=== PATIENT | male | born 1945 | race Caucasian/White ===

== ENCOUNTER → 2018-04-24 08:59 | Outpatient (BNVA) | payer MEDICARE, SELFPAY | PROVIDERS: Visit Provider Surgery | DX: L72.3 Sebaceous cyst (principal); I10 Essential (primary) hypertension | CPT/HCPCS: 99212; 99213 ==

== ENCOUNTER 2018-04-30 10:06 | Outpatient (REF) | payer MEDICARE, SELFPAY ==
[2018-05-01 09:18] LABS: Hepatitis C Ab w Rflx HCV PCR Negative (NEGAT)
[2018-05-01 09:54] LABS: PSA, Screening 0.9 ng/ml (0-6.5)
== END 2018-04-30 10:26 ==
LOC: NCHCN 10:06
PROVIDERS: PCP Internal Medicine; Visit Provider Internal Medicine
DX: R35.0 Frequency of micturition (principal); Z11.59 Encounter for screening for other viral diseases; Z12.5 Encounter for screening for malignant neoplasm of prostate
CPT/HCPCS: 84153; 86803

== ENCOUNTER 2019-12-29 09:44 | Outpatient (REF) | payer MEDICARE, SELFPAY ==
[2019-12-29 21:52] LABS: HCT 41.5 % (40.0-50.0); HGB 13.8 g/dL (13.5-17.5); Mean Corp. HGB Concentration 33.3 g/dL (32.0-36.0); Mean Corpuscular Hemoglobin 31.6 pg (27.0-33.0); Mean Platelet Volume 10.1 fL (8.0-11.0); Platelet Count 310 x1000/uL (130-400); RBC 4.37 m/cumm (4.50-6.00); RBC Distribution Width 13.6 % (11.8-14.1); White Blood Cell Count 5.13 k/cumm (4.4-10.8)
[2019-12-29 22:22] LABS: ALT 24 U/L (16-63); AST 20 U/L (15-37); Albumin 3.9 g/dL (3.4-5.0); Alkaline Phosphatase 72 U/L (46-116); Anion Gap 8.3 mmol/L (3-11); BUN 26 mg/dL (7-18); Bilirubin, Total 0.5 mg/dL (0.2-1.0); CO2 27.7 mmol/L (21.0-32.0); CREATININE 1.18 mg/dL (0.70-1.30); Calcium 8.9 mg/dL (8.5-10.1); Chloride 103 mmol/L (98-107); Glucose 98 mg/dL (74-106); Potassium 4.7 mmol/L (3.5-5.1); Sodium 139 mmol/L (136-145); TSH 1.08 uIU/mL (0.36-3.74)
[2019-12-31 13:00] LABS: CEA 2.4 ng/mL (See Note); PSA, Screening 0.8 ng/mL (0.0-6.5)
== END 2019-12-29 10:04 ==
LOC: NCHCN 09:44
PROVIDERS: PCP Internal Medicine
DX: R63.4 Abnormal weight loss (principal); R68.81 Early satiety; Z12.5 Encounter for screening for malignant neoplasm of prostate; N40.0 Benign prostatic hyperplasia without lower urinary tract symptoms; Z85.038 Personal history of other malignant neoplasm of large intestine
CPT/HCPCS: 80053; 84153; 85027; 82378; 84443

== ENCOUNTER 2020-11-21 14:45 | Outpatient (REF) | payer MEDICARE, SELFPAY ==
[2020-11-21 14:13] LABS: HCT 44.1 % (40.0-50.0); HGB 15.3 g/dL (13.5-17.5); MCH 32.4 pg (27.0-33.0); MCHC 34.7 % (32.0-36.0); MCV 93.4 fL (80-95); MPV 10.1 fL (8.0-11.0); Platelet Count 322 10^3/uL (130-400); RBC 4.72 10^6/uL (4.36-5.78); RDW 13.3 % (11.8-14.1); WBC 4.81 10^3/uL (4.4-10.8)
[2020-11-21 14:41] LABS: ALT 25 U/L (16-63); AST 22 U/L (15-37); Albumin 4.1 g/dL (3.4-5.0); Alkaline Phosphatase 80 U/L (46-116); Anion Gap 10.9 mmol/L (3-11); BUN 19 mg/dL (7-18); Bilirubin, Total 0.9 mg/dL (0.2-1.0); CO2 26.1 mmol/L (21.0-32.0); CREATININE 1.2 mg/dL (0.70-1.30); Calcium 9.3 mg/dL (8.5-10.1); Chloride 105 mmol/L (98-107); Estimated GFR 59.02 (mL/min/1.73m2); Glucose 143 mg/dL (74-106); Potassium 4.7 mmol/L (3.5-5.1); Sodium 142 mmol/L (136-145); Total Protein 7.5 g/dL (6.4-8.2); Vitamin B12 245 pg/mL (193-986)
[2020-11-21 14:59] LABS: NT-proBNP 197 pg/mL (<300)
[2020-11-21 22:42] LABS: PSA, Screening 1.1 ng/mL (0.0-6.5)
== END 2020-11-21 14:46 | disposition home or self-care (01) ==
LOC: NCHCN 14:45
PROVIDERS: PCP Internal Medicine; Visit Provider Internal Medicine
DX: R06.09 Other forms of dyspnea (principal); R41.3 Other amnesia; R11.0 Nausea; R19.4 Change in bowel habit; R63.0 Anorexia; K59.09 Other constipation; F51.04 Psychophysiologic insomnia; N40.1 Benign prostatic hyperplasia with lower urinary tract symptoms; Z12.5 Encounter for screening for malignant neoplasm of prostate
CPT/HCPCS: 80053; 84153; 85027; 82607; 83880; 84443

== ENCOUNTER 2020-11-24 18:38 | Outpatient (REF) | payer MEDICARE, SELFPAY ==
[2020-11-28 15:41] LABS: Helicobacter pylori Ag, Feces Negative (Negative)
== END 2020-11-24 18:39 | disposition home or self-care (01) ==
LOC: NCHCN 18:38
PROVIDERS: PCP Internal Medicine; Visit Provider Internal Medicine
DX: R19.4 Change in bowel habit (principal); R63.0 Anorexia; R63.4 Abnormal weight loss; R11.0 Nausea
CPT/HCPCS: 87338; 82272

== ENCOUNTER 2020-11-30 02:05 | Outpatient (CLI) | payer MEDICARE, SELFPAY ==
--- NOTE | 2020-11-30 | DI.CT_ITS ---
Exam(s) CT CHEST/ABD/PEL W EXAM: CT CHEST/ABD/PEL W CLINICAL HISTORY: EXERTIONAL DYSPNEA,R06.09,NAUSEA,R11.0,UNINTENTIONAL WT LOSS,R63.4 TECHNIQUE: Imaging Protocol: Axial computed tomography images with coronal and sagittal reformatted images were created and reviewed CONTRAST MATERIAL: Intravenous: Omnipaque 350 Contrast volume:100 mL Oral: Yes COMPARISON: No exams were available for comparison FINDINGS: CHEST: Tracheobronchial tree: Patent where visualized. Pulmonary parenchyma: No consolidation or dominant measurable mass. No architectural distortion. Calc ified granulomas are present. There is a 2 mm nodule associated with the left major fissure likely r eflecting an fissural lymph node. Visualized thyroid gland: Unremarkable. Mediastinum and Steph: No dominant adenopathy or fluid collection. Pleura: No effusion or pneumothorax. Heart: The heart is not dilated. No coronary artery calcifications are seen. No pericardial effusion. Aorta: Thoracic aorta non-dilated. Atherosclerosis. Lymph nodes: Within normal limits. Soft tissues: Bilateral gynecomastia. Bones:No aggressive osseous lesions are identified. ABDOMEN: Liver: Normal density. No measurable mass. Portal, Superior Mesenteric, and Splenic Veins: Unremarkable. Gallbladder and Biliary Tract: Cholelithiasis. No biliary ductal dilatation. Pancreas: Normal density, no abnormal calcifications or inflammatory process. Spleen: Normal. Adrenals: No masses seen. Kidneys: Normal size, contour and axis. No radiodense stones or obstructive uropathy. There are bilat eral simple renal cysts. The largest is on the superior pole of the right kidney. It measures 3.6 c m. There is scarring of the lateral aspect of the left kidney with a cortical calcification present. No solid renal mass. Abdominal Aorta: Abdominal portion non-dilated. Atherosclerosis. Bowel: No obstruction or bowel wall thickening. Appendix is unremarkable. Peritoneal Cavity: No ascites, collection or mesenteric inflammatory response. No free air. Lymph Nodes: Within normal limits. Bones: Degenerative changes are seen in the spine. No aggressive osseous lesions are seen. Soft Tissues: There is a left inguinal hernia containing unremarkable loops of small and large bowel. No evidence of strangulation or obstruction. PELVIS: Bladder: There is incomplete distension of the urinary bladder. No gross abnormality is identified. Reproductive Organs: There is an enlarged prostate gland with impingement upon the base of the urinar y bladder. Lymph Nodes: Within normal limits. Bones: Within normal limits. IMPRESSION: 1. Cholelithiasis. No biliary ductal dilatation. 2. Bilateral renal cysts. Left renal scarring. 3. Left inguinal hernia containing small and large bowel loops. No evidence of strangulation or obst ruction. 4. Enlarged prostate gland. 5. No evidence of a thoracic mass or adenopathy. RADIATION DOSE DELIVERED: 1,465.76mGy.cm Total DLP DATA REPOSITORY: All CT scans at this facility are submitted to the National Radiology Data Registry (NRDR) Dose Index Registry (DIR) with the [employer] (A[employer]). RADIATION OPTIMIZATION: All CT scans at this facility use at least one of these dose optimization te chniques: automated exposure control; mA and/or kV adjustment per patient size (includes targeted exa ms where dose is matched to clinical indication); or iterative reconstruction.
[2020-11-30] MEDS: Breeza Beverage 473 ML BTL PO ×2 (11:14→11:15)
[2020-11-30] MEDS: Omnipaque 350 MG/ML 100 ML BTL IJ (13:05)
[2020-11-30] MEDS: Normal Saline - Diluent 50 ML VIAL IV (13:05)
== END 2020-11-30 02:25 ==
PROVIDERS: PCP Internal Medicine; Visit Provider Internal Medicine
DX: R06.09 Other forms of dyspnea (principal); R11.0 Nausea; R63.4 Abnormal weight loss; K80.20 Calculus of gallbladder without cholecystitis without obstruction; N28.1 Cyst of kidney, acquired; K40.90 Unilateral inguinal hernia, without obstruction or gangrene, not specified as recurrent; N40.0 Benign prostatic hyperplasia without lower urinary tract symptoms
CPT/HCPCS: 74177; 71260; J3490

== ENCOUNTER 2022-05-20 12:05 | Outpatient (REF) | payer MEDICARE, SELFPAY ==
[2022-05-20 14:52] LABS: Abs Immature Grans 0.01 10^3/uL (0.0-0.06); Absolute Basophil Count 0.04 10^3/uL (0.0-0.2); Absolute Eosinophil Count 0.09 10^3/uL (0.0-0.7); Absolute Lymphocyte Count 0.95 10^3/uL (1.2-3.4); Absolute Monocyte Count 0.41 10^3/uL (0.1-0.8); Absolute Neutrophil Count 3.19 10^3/uL (1.2-6.7); Basophils % 0.9; Eosinophils % 1.9; HCT 41.8 % (40.0-50.0); HGB 14.4 g/dL (13.5-17.5); Immature Grans % 0.2; Lymphocytes % 20.3; MCH 31.8 pg (27.0-33.0); MCHC 34.4 % (32.0-36.0); MCV 92 fL (80-95); MPV 10.6 fL (8.0-11.0); Monocytes % 8.7; Platelet Count 293 10^3/uL (130-400); RBC 4.53 10^6/uL (4.36-5.78); RDW-SD 44.2 fL; WBC 4.69 10^3/uL (4.4-10.8)
[2022-05-20 14:58] LABS: ESR 17 mm/hr (0-20)
[2022-05-20 15:31] LABS: ALT 17 U/L (16-63); AST 21 U/L (15-37); Alkaline Phosphatase 77 U/L (46-116); Anion Gap 7.8 mmol/L (3-11); BUN 22 mg/dL (7-18); Bilirubin, Total 0.5 mg/dL (0.2-1.0); CO2 28.2 mmol/L (21.0-32.0); CREATININE 1.3 mg/dL (0.70-1.30); Calcium 9.4 mg/dL (8.5-10.1); Calculated LDL 105 mg/dL (<100); Chloride 103 mmol/L (98-107); Cholesterol 187 mg/dL (<200); Estimated GFR 56.93 (mL/min/1.73m2); Glucose 78 mg/dL (74-106); HDL Cholesterol 71 mg/dL (40-60); Magnesium 2.1 mg/dL (1.8-2.4); Potassium 4.5 mmol/L (3.5-5.1); Sodium 139 mmol/L (136-145); TSH (W/Ref FT4) 1.07 uIU/mL (0.36-3.74); Total Protein 7.3 g/dL (6.4-8.2); Triglyceride 59 mg/dL (<150); Vitamin B12 334 pg/mL (193-986)
[2022-05-20 22:02] LABS: PSA, Screening 0.9 ng/mL (<=6.5)
[2022-05-21 14:24] LABS: ANA Interpretation Negative (Negative)
== END 2022-05-20 12:06 | disposition home or self-care (01) ==
LOC: NCHCN 12:05
PROVIDERS: PCP Internal Medicine; Visit Provider Internal Medicine
DX: I10 Essential (primary) hypertension (principal); N40.1 Benign prostatic hyperplasia with lower urinary tract symptoms; N52.9 Male erectile dysfunction, unspecified; F51.04 Psychophysiologic insomnia; K59.09 Other constipation; Z12.5 Encounter for screening for malignant neoplasm of prostate; R41.9 Unspecified symptoms and signs involving cognitive functions and awareness
CPT/HCPCS: 80053; 80061; 84153; 85652; 82607; 83735; 84443; 85025; 86038

== ENCOUNTER 2022-06-17 13:08 | Outpatient (CLI) | payer MEDICARE, SELFPAY ==
--- NOTE | 2022-06-17 | DI.RAD_ITS ---
Exam(s) XR LUMBAR SPINE COMPLETE EXAM: XR LUMBAR SPINE COMPLETE CLINICAL HISTORY: BACK PAIN LUMBAR, M54.5, RT BACK PAIN, M54.89, BUTTOCK PAIN, R52. TECHNIQUE: 2D digital imaging was performed. Five views. COMPARISON: No exams were available for comparison FINDINGS: No compression fractures. Severe narrowing of the L1-2 disc space with prominent osteophytes that ar e left-sided. Mild narrowing of the L2-3 disc space on the right. L3-4 disc space is maintained. T here is mild narrowing of the L4-5 disc space. There prominent facet joint degenerative changes caus ing mild L4-5 spondylolisthesis. The L5-S1 disc space is maintained. There are facet degenerative c hanges. There is a mild degenerative scoliosis. IMPRESSION: Multilevel degenerative changes, greatest at L1-2. DATA REPOSITORY: RADIATION DOSE DELIVERED:
--- NOTE | 2022-06-17 | DI.RAD_ITS ---
Exam(s) XR HIP RT COMPLETE AP PELVIS EXAM: XR HIP RT COMPLETE AP PELVIS INDICATION: LUMBAR BACK PAIN, M54.5, RT BACK PAIN, M54.89, BUTTOCK PAIN, R52. COMPARISON: No exams were available for comparison TECHNIQUE: 2D digital imaging was performed. Two views. FINDINGS: If joint spaces are maintained. There is mild bilateral acetabular spurring. There is mild spurring at the margins of the femoral heads. The sacroiliac joints are unremarkable. IMPRESSION: Mild degenerative changes. DATA REPOSITORY: RADIATION DOSE DELIVERED:
== END 2022-06-17 13:28 ==
PROVIDERS: PCP Internal Medicine; Visit Provider Internal Medicine
DX: M54.59 Other low back pain (principal); M53.3 Sacrococcygeal disorders, not elsewhere classified; M25.551 Pain in right hip; M51.36 Other intervertebral disc degeneration, lumbar region; M43.16 Spondylolisthesis, lumbar region; M47.816 Spondylosis without myelopathy or radiculopathy, lumbar region; M16.11 Unilateral primary osteoarthritis, right hip
CPT/HCPCS: 72110; 73502

== ENCOUNTER → 2022-11-06 09:03 | Outpatient (BNVA) | payer MEDICARE, SELFPAY | PROVIDERS: PCP Internal Medicine; Referring Provider Internal Medicine; Visit Provider Surgery | DX: K59.00 Constipation, unspecified (principal); R19.8 Other specified symptoms and signs involving the digestive system and abdomen | CPT/HCPCS: 99203 ==

== ENCOUNTER → 2022-11-13 08:06 | Outpatient (BNVA) | payer MEDICARE, SELFPAY | PROVIDERS: PCP Internal Medicine; Referring Provider Internal Medicine; Visit Provider Nurse Practitioner Adult Health | DX: R41.89 Other symptoms and signs involving cognitive functions and awareness (principal); I10 Essential (primary) hypertension; F12.90 Cannabis use, unspecified, uncomplicated | CPT/HCPCS: 99204; 99215 ==

== ENCOUNTER 2022-12-12 00:53 | Outpatient (CLI) | payer MEDICARE, SELFPAY ==
--- NOTE | 2022-12-12 08:30 | DI.MRI_ITS ---
Exam(s) MR BRAIN WO EXAM: MR BRAIN WO CLINICAL HISTORY: memory changes, word finding difficulties R41.89 COGNITIVESYMPTOMS TECHNIQUE: Multiplanar multisequence MRI of the brain was performed. COMPARISON: CT HEAD WITHOUT STROKE PROTOCOL from 06/02/2017 FINDINGS: CEREBRAL PARENCHYMA: There is no evidence of intracranial hemorrhage, mass effect, or shift of midline structures. There are no extra-axial fluid collections. Ventricles are not enlarged or shifted. Amount of involutiona l change is symmetrical and consistent with the patient's age. There is no significant focal signal abnormality in the cerebellar hemispheres nor within the dashawn, m idbrain, and thalami. There is very minimal signal abnormality in the periventricular white matter. There is no significant focal signal abnormality evident on diffusion imaging to suggest acute ischem ic event. SWI reveals no evidence of microhemorrhages. PITUITARY GLAND: No mass nor parasellar abnormality. No obvious abnormality in the cavernous sinuses. FLOW VOIDS: The expected flow void are noted. No evidence of obvious aneurysm nor obvious vascular ma lformation. PARANASAL SINUSES: The visualized paranasal sinuses appear unremarkable. No obvious finding ORBITS: No obvious findings. IMPRESSION: No significant acute intracranial findings on this noninfused MRI scan of the brain. There is symmetrical involutional change which is consistent with this patient's advanced age. DATA REPOSITORY:
== END 2022-12-12 01:13 ==
PROVIDERS: PCP Internal Medicine; Visit Provider Nurse Practitioner Adult Health
DX: R41.89 Other symptoms and signs involving cognitive functions and awareness (principal)
CPT/HCPCS: 70551

== ENCOUNTER 2022-12-19 08:13 | Day surgery (SDC) | payer MEDICARE, SELFPAY ==
--- NOTE | 2022-12-18 20:34 | W.PREOPHP ---
Assessment and Plan Assessment and plan (1) Chronic constipation: Status: Acute Assessment and plan: We reviewed the risks and the benefits of colonoscopy today. He understands and wishes to proceed. History of Present Illness History of Present Illness Chief Complaint: change in bowel habits Narrative: He is 77 years old, and is got a past medical history that is most significant for a polyp with perhaps cancer in situ.? He underwent polypectomy for that, and subsequent sigmoidoscopy and colonoscopies were all negative.? Over the past several years, he has developed some change in the character of his bowel habits.? Initially he reported some constipation.? He said this was present for several years, and was treated with MiraLAX, Senokot, and Dulcolax.? Medications have been adjusted over the years.? Does believe that those medications helped him.? More recently, over the past 3 to 4 months, he has been experienced increasing bowel movements.? He tells me he awakens from sleep feeling pretty well, but during the morning hours, he develops a rapid and intense sensation of tenesmus.? Often times, this is only associated with passage of gas.? Other times, he has large forceful liquid bowel movements.? He denies melena or hematochezia.? He generally has immediate relief of the discomfort, but similar episodes will happen intermittently throughout the course of the day.? He denies any nausea or vomiting.? He tells me most recently he has been holding his MiraLAX.? He does think that this is helped a little bit. Since his last visit to the office he has been started on some loratadine for congestion. Otherwise, there have been no significant interval changes. PFSH All Active Problems Chronic constipation (Acute) Constipation (Acute) Screening for colon cancer (Acute) Change in bowel function (Acute) Cognitive changes (Acute) Medical History Adenomatous colon polyp Allergic rhinitis BPH Cholelithiasis Pt. denies this Erectile dysfunction Genital herpes in men Pt. states not genital but oral Hearing loss Herpes simplex History of colon cancer rectal 2004 Hypertension Insomnia Loose stools Lumbar back pain Migraine aura without headache Mild cognitive impairment, so stated Night sweats Osteoarthritis Patent foramen ovale Pericardial effusion Right rotator cuff tear Sebaceous cyst Urinary frequency Surgical History Colonoscopy - MAC (06/14/09) Colonoscopy - MAC (02/03/17) Excision, Pilonidal Cyst Repair of inguinal hernia CHILDHOOD - RIGHT S/P pericardiocentesis Per pt. states it was 4-5 years Sigmoidoscopy Family History Mother Arthritis Father No problems noted. Brother Obesity Brother No problems noted. Social History Smoking/Tobacco Use Status: Former Tobacco Use Quit Date: 06/30/79 Smoking risk assessment performed?: Yes Alcohol Intake: current Alcohol Intake frequency: 0-2 drinks per day Alcohol type: beer Substance use type: does not use Details: Per pt. states CBD as a sleep aid Household members: significant other Current gender identity: male Do you feel safe at home: Yes Do you feel safe in your relationship?: Yes Additional Social history: unable to asses privately Meds Allergies and Home Medications Allergies Allergy/AdvReac Type Severity Reaction Status Date / Time Penicillins Allergy Intermediate Skin Rash Verified 12/19/22 08:39 Home Medications Medication Instructions Recorded Confirmed Type ibuprofen 100 mg chewable tablet 200 mg PO Q4H PRN 12/03/12 12/19/22 History (Advil) valacyclovir 1 gram tablet 2,000 mg PO BID PRN 12/03/12 12/19/22 History (Valtrex) sennosides 8.6 mg-docusate sodium 1 ea PO DAILY 12/08/12 12/19/22 History 50 mg tablet (Senna-S) THC PO 04/24/18 11/13/22 History acetaminophen 500 mg tablet 1,000 mg PO TID PRN PRN 05/22/22 12/19/22 History (Tylenol Extra Strength) tramadol 50 mg tablet 50 mg PO HS PRN 05/22/22 12/19/22 History atorvastatin 20 mg tablet 20 mg PO DAILY 07/29/22 12/19/22 History polyethylene glycol 3350 4 gram 4 g PO DAILY 07/29/22 12/19/22 History oral powder packet docusate sodium 100 mg capsule 100 mg PO DAILY 11/06/22 12/19/22 History (Colace) tamsulosin 0.4 mg capsule 0.8 mg PO QHS 11/13/22 12/19/22 History Exam Const General: cooperative, healthy appearing and comfortable Orientation: awake and oriented x3 Eyes General: appearance normal, both eyes and all related structures Conjunctivae: conjunctivae normal Sclera: sclerae normal Resp Effort & Inspection: normal respiratory effort and able to speak in complete sentences Auscultation: clear to auscultation bilaterally Cardio Jugular venous pressure: no JVD Rate: regular rate Rhythm: regular rhythm GI Inspection: non-distended Palpation: soft, no guarding, no hernias and nontender Auscultation: normal bowel sounds Skin General skin exam: normal turgor Neuro General: patient alert, patient awake and patient oriented x3 Cognition: normal cognition Extrem Right lower extremity: no edema Left lower extremity: no edema
--- NOTE | 2022-12-18 20:36 | W.PM.DSUDISC ---
Date of service: 12/19/22 Time of Service: 10:35 Discharge Plan Disposition Patient Disposition: Home Condition: Good Discharge Details Reason For Visit: Colonoscopy Attending Provider: Conrado Ron Primary Care Provider: Washington Puckett Home Meds and New Rx's Prescriptions: Continued THC PO docusate sodium [Colace] 100 mg capsule 100 mg PO DAILY valacyclovir [Valtrex] 1,000 MG tablet 2,000 mg PO BID PRN ibuprofen [Advil] 100 MG tablet,chewable 200 mg PO Q4H PRN sennosides-docusate sodium [Senna-S] 1 EACH tablet 1 ea PO DAILY Patient Comments: not taking anymore per pt. acetaminophen [Tylenol Extra Strength] 500 mg tablet 1,000 mg PO TID PRN PRN tramadol 50 mg tablet 50 mg PO HS PRN polyethylene glycol 3350 4 gram powder in packet 4 g PO DAILY atorvastatin 20 mg tablet 20 mg PO DAILY tamsulosin 0.4 mg capsule 0.8 mg PO QHS Discontinued polyethylene glycol 3350 17 gram/dose powder 238 g PO ONCE Qty: 238 0RF Rx Instructions: take per colonoscopy instructions bisacodyl [Dulcolax (bisacodyl)] 5 mg tablet,delayed release (DR/EC) 5 mg PO ONCE Qty: 4 0RF Rx Instructions: take per colonoscopy instructions Discharge Instructions Additional Instructions: Evening, we were able to do your colonoscopy today without any problems. Your digital rectal exam feels normal to me. I do not appreciate any worrisome anal stenosis. The quality of your preparation was excellent. There was no retained stool. Your colon is slightly dilated compared to most people, which could suggest some chronic motility disorders. But there is no areas of any blockage at any point. Incidentally, I did find 2 small polyps. I removed these completely. I also perform multiple biopsies along the length of the colon to assess for other problems that might not be visible to the naked eye. I will be in touch when I have the results of the biopsies. 1. If tolerated, consume a soft, low fiber diet for 1-2 days. 2[address] Do not drive, drink alcohol, operate machinery, make critical decisions, or do activities that require coordination or balance for 24 hours. 3. Because air was put into your colon during the procedure, expelling air from your rectum (passing gas or farting) is normal. 4. You may not have a bowel movement for 1-3 days because of the colonoscopy prep. This is normal. 5. Go directly to the emergency room if you notice any of the following: Develop chills (warm to touch), or if you have a thermometer and your temperature is above 101 Difficulty breathing or difficultly swallowing Persistent vomiting Severe abdominal pain, other than gas cramps Severe chest pain Black, tarry stools Any bleeding ? exceeding one tablespoon 6. Call your physician if the site where your intravenous was started becomes red, swollen, painful, and warm to touch. 7. Your physician has reviewed your pre-procedure medications. Please continue to take those medications as previously ordered. You will be given specific information/education regarding any changes to your medications before leaving. Activity:: Activity as Tolerated Diet:: As Tolerated Discharge Orders Discharge Orders: Discharge Order (Routine); Ordered 12/18/22 Ordered By: Conrado Ron DS: Diagnosis Discharge Diagnosis (1) Chronic constipation: Status: Acute
--- NOTE | 2022-12-18 20:37 | W.COLOREPORT ---
Date of service: 12/19/22 Time of Service: 10:39 Colonoscopy Report Date of procedure: 12/19/22 Pre-op diagnosis general: Change in bowel habits Post-op diagnosis procedure note: other (Colon polyps) Procedure: Colonoscopy Surgeon: Conrado Ron Anesthesia Type: General:No Airway Estimated blood loss (mL): 10 Pathology: other (Colon polyp at 60 cm, colon polyp at 35 cm) Complications: None Disposition: same day Indications: Alvin is a 77 year old man who has been experiencing waxing and waning constipation and diarhea. He has a past history significant for an adenomatous polyp with carcinoma in situ. Prep: Miralax/Dulcolax Procedure Start Time: 09:58 Procedure End Time: 10:30 Retraction Time: 18 Findings: Colon polyps Procedure Description: After the induction of monitored anesthetic care, and with the patient in left lateral decubitus position, I began by performing an external anorectal exam.? Perineum and skin were normal, as was the anal verge.? There was no evidence of external hemorrhoids.? Next, I performed a digital rectal exam.? Anal sphincter felt normal. There were no masses. I did know appreciate any abnormal findings.? Next, I advanced a colonoscope into the rectal vault.? I performed retroflexion.? There are grade 1 internal hemorrhoids.? Using insufflation, I then advanced the colonoscope beyond the rectal folds and into the sigmoid colon before advancing towards the cecum.? The quality of the prep was asked.? The scope was noted to be in the cecum by identification of the ileocecal valve and appendiceal orifice.? I then began withdrawing the colonoscope using repeated irrigation as necessary for full evaluation of the colonic mucosa. Around 60 cm from the anal verge I identified a 0.75 cm polyp. ?It appeared sessile in character. ?I was able to remove this with a cold forceps. ?I examined the site, and there was minimal bleeding. ?Once this was completed, I continued to withdraw the scope and examine the remainder of the colonic mucosa.? Similarly, there was another polyp at 35 cm. This was 0.25 cm and sessile. This was also removed with cold forcep polypectomy. Once the scope was withdrawn to the level of the rectum, great care was taken to examine portions of the rectal folds.? Given his symptoms, I did also perform random biopsies of the colon using cold forceps at multiple points in the ascending, transverse, descending and sigmoid colons. Finally, the scope was withdrawn and the patient was brought to the same-day surgery recovery unit as the anesthetic wore off. ?The findings and instructions were shared with the patient prior to discharge.
[2022-12-19 08:28] VITALS: BP 145/78; PULSE 73; RESP 17; TEMP 35.5; O2SAT 99
[2022-12-19] MEDS: Lactated Ringers 1,000 ML 80 ML IV (08:54)
--- NOTE | 2022-12-19 09:12 | W.ANESPRE ---
General Info Date of Service Date Performed: 12/19/22 Height: 5 ft 9.5 in Weight: 79.1 kg Body Mass Index (BMI): 25.4 Surgical Procedure: Operation Date: 12/19/22 09:35 Proposed Procedure Side Surgeon genaro Ron MD Meds Allergies and Home Medications Allergies Allergy/AdvReac Type Severity Reaction Status Date / Time Penicillins Allergy Intermediate Skin Rash Verified 12/19/22 08:39 Home Medication Medication Instructions Recorded ibuprofen 100 mg chewable tablet 200 mg PO Q4H PRN 12/03/12 (Advil) valacyclovir 1 gram tablet 2,000 mg PO BID PRN 12/03/12 (Valtrex) sennosides 8.6 mg-docusate sodium 1 ea PO DAILY 12/08/12 50 mg tablet (Senna-S) THC PO 04/24/18 acetaminophen 500 mg tablet 1,000 mg PO TID PRN PRN 05/22/22 (Tylenol Extra Strength) tramadol 50 mg tablet 50 mg PO HS PRN 05/22/22 atorvastatin 20 mg tablet 20 mg PO DAILY 07/29/22 polyethylene glycol 3350 4 gram 4 g PO DAILY 07/29/22 oral powder packet docusate sodium 100 mg capsule 100 mg PO DAILY 11/06/22 (Colace) tamsulosin 0.4 mg capsule 0.8 mg PO QHS 11/13/22 Current Visit Medications: Current Medications Generic Name Dose Route Start Last Admin Trade Name Freq PRN Reason Stop Dose Admin Hyoscyamine Sulfate 0.125 mg 12/18/22 20:39 Hyoscyamine 0.125 Mg Sl/Oral/Chew SL 01/17/23 20:38 DIRECTED PRN Ringer's Solution 1,000 mls @ 80 mls/hr 12/19/22 06:00 12/19/22 08:54 IV 12/27/22 23:59 80 mls/hr INFUSION ANGELA Administration IV Miscellaneous Supplies 1 each 12/19/22 06:00 Iv Access IV 12/27/22 23:59 DIRECTED ANGELA Ondansetron HCl 4 mg 12/18/22 20:39 Ondansetron 4 Mg/2 Ml Vial IVP 01/17/23 20:38 Q4H PRN PRN Nausea / Vomiting Sodium Chloride 0 ml 12/19/22 06:00 Normal Saline Flush 10 Ml Syr IV 12/27/22 23:59 PRN PRN Sodium Chloride 0 ml 12/19/22 06:00 Normal Saline 10 Ml Vial IJ 12/27/22 23:59 DIRECTED PRN Sterile Water 0 ml 12/19/22 06:00 Water,Injection,Sterile 10 Ml Vial IJ 12/27/22 23:59 DIRECTED PRN PFSH Active Problems Active Problems: Problem Status Onset Code Chronic constipation K59.09 Constipation K59.00 Screening for colon cancer Z12.11 Change in bowel function R19.8 Cognitive changes R41.89 Medical History Medical History Adenomatous colon polyp Allergic rhinitis BPH Cholelithiasis Pt. denies this Erectile dysfunction Genital herpes in men Pt. states not genital but oral Hearing loss Herpes simplex History of colon cancer rectal 2004 Hypertension Insomnia Loose stools Lumbar back pain Migraine aura without headache Mild cognitive impairment, so stated Night sweats Osteoarthritis Patent foramen ovale Pericardial effusion Right rotator cuff tear Sebaceous cyst Urinary frequency Surgical History Surgical History Colonoscopy - MAC (06/14/09) Colonoscopy - MAC (02/03/17) Excision, Pilonidal Cyst Repair of inguinal hernia CHILDHOOD - RIGHT S/P pericardiocentesis Per pt. states it was 4-5 years Sigmoidoscopy Tobacco Smoking/Tobacco Use Status: Former Tobacco Use Alcohol Alcohol Intake: current Alcohol intake frequency: 0-2 drinks per day Alcohol type: beer Substance Use Substance use type: does not use Details: Per pt. states CBD as a sleep aid Vital Signs and Lab Results Vital Signs Most Recent Vital Signs in EMR: Most Recent Vital Signs Temp Pulse Resp BP Pulse Ox 35.5 C L 73 17 145/78 H 99 12/19/22 08:28 12/19/22 08:28 12/19/22 08:28 12/19/22 08:28 12/19/22 08:28 Lab Results Blood Type / Crossmatch: No Data to Display Complete Blood Count: No Data to Display Complete Metabolic Panel: No Data to Display Liver Function Panel: No Data to Display Coagulation Panel: No Data to Display Cardiac Panel: No Data to Display Arterial Blood Gas: No Data to Display Venous Blood Gas: No Data to Display Pancreas Panel: No Data to Display Thyroid Panel: No Data to Display Infectious Disease: No Data to Display Blood Cultures: No Data to Display Toxicology Panel: No Data to Display Anesthesia Assessment and Plan Anesthesia History Personal History: No History of Anesthesia Complications Family History: No Family History of Anesthesia Complications Exercise Tolerance Exercise Tolerance: Metabolic Equivalents>4 Pertinent Negatives Pertinent Negatives: No Symptoms of GERD, No Major Cardiovascular Symptoms or Complaints and No Major Pulmonary Symptoms or Complaints Cardiac & Pulmonary Exam Cardiac Exam: Normal S1/S2 Heart Sounds (Occ ectopic beat) Pulmonary Exam: Clear Bilateral Breath Sounds Implantable Cardiac Device Does patient have a Pacemaker or an ICD?: No Airway Exam Known Difficult Airway: No Mallampati Class: 2 Mouth Opening: Normal (> 3cm) Thyromental Distance: Greater than 3 cm Neck Range of Motion: Full ROM Neck Circumference: Normal Teeth Condition: Normal Dentition ASA Classification ASA Score: ASA 2 Emergency Case?: No NPO Status NPO Status: NPO Clears >2 hours, Solids >8 hours Anesthesia Plan Resuscitation Status: Full Code Anesthesia Technique: General Anesthesia Airway Planned: Natural Airway Monitors Used: Standard Monitors Preoperative Comments:: Hx of rectal CA 2004. colo in 2017 normal.
[2022-12-19 09:57] VITALS: BMI 25.4
--- NOTE | 2022-12-19 10:20 | BOWEL_PTH ---
PATIENT: Alvin Cat LOC: [facility] U#:[id number] AGE/SX: 77/M ROOM: RE12/19/[address]: Conrado Ron MD : 1945 BED: DIS: 12/19/2022 SPEC #: [id number] RECD: 12/19/22 12:48 STATUS: MIAH REQ #: [id number] MARY GRACE: 12/19/22 10:[address]: Conrado Ron DEPT: Surgical Specimen RECD BY: Carlyn Goode ENTERED: 12/19/22 12:48 SP TYPE: Bowel OTHR DR: Washington Puckett Tissues: 1 - BIOPSY BOWEL 2 - BIOPSY BOWEL 3 - BIOPSY BOWEL Procedures: GROSS AND MICRO LEVEL 4 Comments: [id number]
[2022-12-19 10:37] VITALS: BP 133/74; PULSE 55; RESP 16; TEMP 36.2; O2SAT 97
[2022-12-19 11:15] VITALS: BP 139/81; PULSE 51; RESP 16; TEMP 36.3; O2SAT 100
--- NOTE | 2022-12-19 12:31 | W.ANESPOSTOP ---
Postoperative Evaluation Date, Time and Location Date Performed: 12/19/22 Time Performed: 11:20 Patient Location: Day Surgery Unit Vital Signs Most Recent Imported Vital Signs: Most Recent Vital Signs Temp Pulse Resp BP Pulse Ox 36.3 C L 51 L 16 139/81 100 12/19/22 11:15 12/19/22 11:15 12/19/22 11:15 12/19/22 11:15 12/19/22 11:15 Pain Score Most Recent Pain Score: Most Recent Pain Score Pain Level 0 12/19/22 11:15 Assessment Mental Status: Awake (Alert & Oriented to Patient Baseline) Airway and Respiratory Function: Patent airway with normal (patient baseline) respiratory exam Cardiovascular Function: Hemodynamically Stable Hydration Status: Adequately Hydrated Nausea & Vomiting: No Nausea or Vomiting Pain: Pt. Denies Any Pain Peripheral Nerve Block: Patient did not receive a nerve block
== END 2022-12-19 11:55 | disposition home or self-care (01) ==
PROVIDERS: PCP Internal Medicine; Visit Provider Surgery
PROC: 0DJD8ZZ Inspection of Lower Intestinal Tract, Via Natural or Artificial Opening Endoscopic (ICD-10-PCS; CPT 45378; principal; 2022-12-19 09:30)
DX: R19.4 Change in bowel habit (principal); D12.4 Benign neoplasm of descending colon; Z86.010 Personal history of colon polyps; D12.5 Benign neoplasm of sigmoid colon
CPT/HCPCS: 45380; 88305

== ENCOUNTER → 2022-12-25 08:04 | Outpatient (BNVA) | payer MEDICARE, SELFPAY | PROVIDERS: PCP Internal Medicine; Referring Provider Internal Medicine; Visit Provider Nurse Practitioner Adult Health | DX: G31.84 Mild cognitive impairment of uncertain or unknown etiology (principal) | CPT/HCPCS: 99214 ==

== ENCOUNTER 2023-05-05 15:42 | Outpatient (REF) | payer MEDICARE, SELFPAY ==
[2023-05-05 15:48] LABS: Anion Gap 9.6 mmol/L (3-11); BUN 19 mg/dL (7-18); CO2 27.4 mmol/L (21.0-32.0); CREATININE 1.3 mg/dL (0.70-1.30); Calcium 9.8 mg/dL (8.5-10.1); Calculated LDL 111 mg/dL (<100); Chloride 105 mmol/L (98-107); Cholesterol 195 mg/dL (<200); Estimated GFR 56.58 (mL/min/1.73m2); Glucose 90 mg/dL (74-106); HDL Cholesterol 72 mg/dL (40-60); Potassium 5.2 mmol/L (3.5-5.1); Sodium 142 mmol/L (136-145); Triglyceride 60 mg/dL (<150)
== END 2023-05-05 15:43 | disposition home or self-care (01) ==
LOC: NCHCN 15:42
PROVIDERS: PCP Internal Medicine; Visit Provider Internal Medicine
DX: I10 Essential (primary) hypertension (principal); Z00.00 Encounter for general adult medical examination without abnormal findings
CPT/HCPCS: 80048; 80061

== ENCOUNTER → 2023-11-25 08:05 | Outpatient (BNVA) | payer MEDICARE, SELFPAY | PROVIDERS: PCP Family Medicine; Visit Provider Nurse Practitioner Adult Health | DX: G31.84 Mild cognitive impairment of uncertain or unknown etiology (principal); F41.9 Anxiety disorder, unspecified; F12.90 Cannabis use, unspecified, uncomplicated | CPT/HCPCS: 99215 ==

== ENCOUNTER → 2024-01-14 11:01 | Outpatient (BNVA) | payer MEDICARE, SELFPAY | PROVIDERS: PCP Family Medicine; Referring Provider Family Medicine; Visit Provider Nurse Practitioner Adult Health | DX: R41.89 Other symptoms and signs involving cognitive functions and awareness (principal) | CPT/HCPCS: 99214 ==

== ENCOUNTER 2024-03-12 00:08 | Outpatient (CLI) | payer MEDICARE, SELFPAY ==
--- OUTSIDE RECORDS SUMMARY | 2024-03-12 00:09 | XMS_ITS | Clinical Summary ---
Author Organization [facility] Address [facility] [place] [address] Care Team Providers Care Wire Mesh Knitter Name Role Phone Federico Valle MD Primary Care Provider [phone] Allergies Active Allergy Reactions Criticality Noted Date Comments Penicillins Other (See Comments) Unknown. Per patient partner, she does not believe this is true anaphylactic reaction. Medications Medication Sig Dispensed Refills Start Date End Date Status sildenafil (VIAGRA) 100 mg tablet Take 100 mg by mouth as needed. 25 mg - 50 mg prn Active valACYclovir (VALTREX) 1 gram Tablet take 2 tablets by mouth prn 0 02/05/2016 Active TURMERIC (CURCUMIN MISC) 1,000 mg by Misc.(Non-Drug; Combo Route) route daily. Active clindamycin (CLEOCIN) 150 mg Capsule take 4 capsules by mouth 1 hour prior to appointment 0 05/06/2017 Active ALPRAZolam (XANAX) 0.5 mg Tablet Take 0.5 mg by mouth nightly as needed for Sleep (1/2 tablet). Active traMADol (ULTRAM) 50 mg TabletIndications:CT N nightly 25 mg nightly. Indications: PRN nightly 0 11/14/2017 Active acetaminophen (TYLENOL) 500 mg Tablet Take 1,000 mg by mouth every 6 hours as needed for Pain. Active Garlic 100 mg Tablet Take by mouth. Active ibuprofen (ADVIL;MOTRIN) 200 mg Tablet Take 200 mg by mouth every 6 hours as needed for Pain. Active docusate sodium (COLACE) 100 mg Capsule Take 100 mg by mouth 2 times daily. Active UNABLE TO FIND nightly. Med Name: CBD Active Psyllium Seed-Sucrose (0) Powder Take by mouth. Active tamsulosin (FLOMAX) 0.4 mg Capsule 0 03/25/2019 Active glucose 4 gram Tablet, Chewable Take 16 g by mouth as needed for Low blood sugar. 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 05/16/2011 Condyloma 01/10/2011 BPH (benign prostatic hyperplasia) 06/30/1998 Erectile dysfunction 06/30/1997 CIS - asbestos exposure 06/30/1969 Osteoarthritis CIS - Bilateral knee osteoarthritis Overview (09/04/2010): cartilage loss both knees diagnosed since 1994 CIS - Bilateral knee pain Resolved Problems Problem Noted Date Diagnosed Date Resolved Date Acute pain of both shoulders 11/24/2015 06/18/2017 CIS - rotator cuff tears 06/30/2004 Encounters Date Type Department Care Team Description 01/27/2024 Transcribe Orders [facility] Incoming Referrals [phone] Federico Valle MD Other symptoms and signs involving cognitive functions and awareness from Last 3 Months Immunizations Name Administration Dates Next Due Influenza Vaccine, Whole 02/28/2010 Family History Medical History Relation Comments Cancer Brother Cerebrovascular Accident Father Relation Status Comments Brother Father Mother Social History Tobacco Use Types Packs/Day Years Used Date Smoking Tobacco: Former Cigarettes Q uit: 03/13/1981 Smokeless Tobacco: Never Alcohol Use Standard Drinks/Week Comments Yes 7 (1 standard drink = 0.6 oz pure alcohol) not drinking at night anymore, still drinking during the day Sex and Gender Information Value Date Recorded Sex Assigned at Not on file Gender Identity Not on file Sexual Orientation Not on file Last Filed Vital Signs Vital Sign Reading Time Taken Comments Blood Pressure 164/87 02/08/2020 8:11 AM EDT Pulse 70 02/08/2020 8:11 AM EDT Temperature 37 ??C (98.6 ??F) 06/04/2017 11:45 AM EST Respiratory Rate 16 06/04/2017 11:45 AM EST Oxygen Saturation 100% 06/04/2017 11:45 AM EST Inhaled Oxygen Concentration - - Weight 79 kg (174 lb 1.6 oz) 02/08/2020 8:11 AM EDT Height 177.8 cm (5' 10) 02/08/2020 8:11 AM EDT Body Mass Index 24.98 02/08/2020 8:11 AM EDT Plan of Treatment Health Maintenance Due Date Last Done Comments Hepatitis C Screening 1963 Tdap adult 1964 Tetanus vaccine 1964 Zoster vaccine (1 of 2) 1995 Pneumoccocal Vaccine: 65+ (1 of 1 - PCV) 2010 Covid-19 Vaccine (1 - season) 2024 Influenza (Flu) vaccine (1 o f 1 - Influenza standard series) 02/29/2024 02/28/2010 Lipid Screening Discontinued 06/02/2017, 12/26/2011 Medical Devices Implanted Type Area Operations Welder Device Identifier Shelf Expiration Date Model / Serial / Lot Mesh,Centrifx ,Med,9x14.5cm ([id number]) - [id number] Implanted:Qty : 1 on 08/16/2013 by [facility] Velasquez [facility] Right: Inguinal 08/28/2015 [id number] / / [id number] Mesh,Centrifx ,Med,9x14.5cm ([id number]) - [id number] Implanted:Qty : 1 on 08/16/2013 by Renzo Velasquez MD at [facility] IM[facility] Left: Pelvis 04/29/2015 [id number] / / [id number] Procedures Procedure Name Priority Date/Time Associated Diagnosis Comments HDL/CHOL PROFILE Routine 06/02/2017 2:35 PM EST from Last 3 Months or Most Recently Relevant to Health Maintenance Results * HDL/Cholesterol Profile (06/02/2017 2:35 PM EST) Cholesterol, Total 170 <=239 mg/dL [facility] HDL Cholesterol 69 >=40 mg/dL [facility] Cholesterol/HDL Ratio 2.5 ratio [facility] Chol/HDL Interpretation See Note [facility] Comment: Lipid management should be guided by a patient? s ASCVD risk, goals and preferences. ACC/AHA Guidelines recommend high intensity statin if clinical ASCVD or LDL greater than or equal to 190 mg/dL. [email or web address] Measure LDL if Total Cholesterol minus HDL Cholesterol is greater than 220 mg/dL. Adults aged 40-75 with LDL 70-189 mg/dL should have their 10 year ASCVD risk estimated with the ACC/AHA ASCVD risk cat hooker http://tools.acc.org/BMXDV-Dhbh-Ygybvdndc/ Statin should be discussed if risk greater than or equal to 7.5% in non-diabetics. With diabetes, moderate intensity statin is recommended if risk less than 7.5%, high intensity if risk greater than or equal to 7.5%. Annual lipid monitoring on statins is not necessary. Lifestyle modification is a critical component of ASCVD risk reduction. Blood specimen (specimen) 06/02/2017 2:35 PM EST 06/02/2017 2:48 PM EST Narrative Resulting Agency Comment Spec In Lab Washington Deluca MD CHEMISTRY ORDERABL ES [facility] [place] [address] from Last 3 Months or Most Recently Relevant to Health Maintenance Advance Directives Documents on File Type Date Recorded Patient Crossing Guard Expl anation Advance Directives and Aviva nieto Will 06/02/2017 4:49 PM * Full Code (Latest Code Status on File) Date Activated Date Inactivated Comments 06/02/2017 2:19 PM 06/04/2017 3:02 PM Question Answer Comments Does patient have capacity to make decision: No Code Status decision being made per: Attending o f Record * Full Code Date Activated Date Inactivated Comments 06/02/2017 1:42 PM 06/02/2017 2:19 PM Question Answer Comments Does patient have capacity to make decision: No Code Status decision being made per: Attending o f Record * Full Code Date Activated Date Inactivated Comments 12/25/2011 4:43 PM 12/27/2011 4:13 PM Question Answer Comments Order Status: Initial Order Does patient have decision m aking capacity? Yes, Order is based on Patients wishes. Care Teams Wire Mesh Knitter Relationship Specialty Start Date End Date Federico Valle MD [address] [place] [id number] PCP - General Family Medicine 01/26/24
--- OUTSIDE RECORDS SUMMARY | 2024-03-12 00:09 | XMS_ITS | Encounter Summary ---
Author Organization [facility] [place] [address] Care Team Providers Care Application Dba Name Role Phone Federico Valle MD Primary Care Provider [phone] Reason for Referral * Psychiatric (Routine) - Authorized Specialty Diagnoses / Procedures Referred By Contac t Referred To Contact Psychiatry Diagnoses Other symptoms and signs involving cognitive functions and awareness PT WITH MCI VS. EARLY NEURODEGENERATIVE PROCESS. Kim Can, SEO ASSOCIATE [facility] [address] [place] [phone] Viet Arteaga, PhD [facility] [place] [address] Referral ID Status Reason Start Date Expiration Date Visits Requested Visits Authorized [id number] Authorized Test Only PCP Updated and/or Approved 01/14/2024 01/13/2025 6 6 Encounter Details Date Type Department Care Team (Latest Contact Info) Description 01/27/2024 Transcribe Orders [facility] Incoming Referrals [phone] Federico Valle MD [address] [place], [place] [id number] Other symptoms and signs involving cognitive functions and awareness Social History Tobacco Use Types Packs/Day Years [...] on file Sexual Orientation Not on file documented as of this encounter Plan of Treatment Scheduled Referrals Name Type Priority Associated Diagnoses Order Schedule Referral to Neuropsychology Outpatient Referral Routine Other symptoms and signs involving cognitive functions and awareness Ordered: 01/27/2024 documented as of this encounter Visit Diagnoses Diagnosis Other symptoms and signs involving cognitive functions and awareness documented in this encounter Care Teams Application Dba Relationship Specialty Start Date End Date Federico Valle MD [address] [place] [id number] PCP - General Family Medicine 01/26/24 documented as of this encounter
--- OUTSIDE RECORDS SUMMARY | 2024-03-12 00:10 | XMS_ITS | Encounter Summary ---
Author Organization [facility] Address [facility] [place] [address] Care Team Providers Care Doper Operator Name Role Phone Diana Weaver MD Primary Care Provider [phone] Reason for Visit * Reason Comments Right Shoulder Pain Encounter Details Date Type Department Care Team (Late st Contact Info) Description 03/11/2017 1:30 PM EDT Office [place] [address] Oliver Carter MD [facility] [place] [address] Acute pain of both shoulders Social History Tobacco Use Types Packs/Day Years [...] on file documented as of this encounter Last Filed Vital Signs Vital Sign Reading Time Taken Comments Blood Pressure 145/71 03/11/2017 1:28 PM EDT Pulse 68 03/11/2017 1:28 PM EDT Temperature - - Respiratory Rate - - Oxygen Saturation - - Inhaled Oxygen Concentration - - Weight 79.4 kg (175 lb) 03/11/2017 1:28 PM EDT Height 177.8 cm (5' 10) 03/11/2017 1:28 PM EDT Body Mass Index 25.11 03/11/2017 1:28 PM EDT documented in this encounter Progress Notes * Oliver Carter MD - 03/11/2017 1:30 PM EDT Patient not seen due to code silver alert not allowing for visit to be initiated. Oliver Carter MD On Air Announcer Orthopaedic Surgery Dept. of Orthopaedic Surgery [facility] documented in this encounter Plan of Treatment Not on file documented as of this encounter Visit Diagnoses Diagnosis Acute pain of both shoulders documented in this encounter Care Teams Doper Operator Relationship Specialty Start Date End Date Diana Weaver MD [address] [place] [address] PCP - General 05/22/10 09/11/17 documented as of this encounter
--- OUTSIDE RECORDS SUMMARY | 2024-03-12 00:10 | XMS_ITS | Encounter Summary ---
[place] [address] Care Team Providers Care Carton Folder Name Role Phone Washington Puckett MD Primary Care Provider [phone] Reason for Referral * Physical Therapy (Routine) - Closed Specialty Diagnoses / Procedures Referred By Ronald parada Referred To Contact Physical Therapy Diagnoses Disorder of rotator cuff of both shoulders Oliver Carter MD [facility] [address] [place] [address] [facility] [address] [place] [address] Referral ID Status Reason Start Date Expiration Date V isits Requested Visits Authorized [id number] Closed Evaluate and Treat 11/18/2017 11/18/2018 1 1 Reason for Visit * Reason Comments Follow-up L shoulder pain and right shoulder * Consultation (Routine) - Closed Specialty Diagnoses / Procedures Referred By Ronald parada Referred To Contact Orthopaedics Diagnoses Left Shoulder Pain Washington Puckett MD [address] [place] [address] [facility] [address] [place] [phone] Referral ID Status Reason Start Date Expiration Date V isits Requested Visits Authorized [id number] Closed Consult, Test & Treat 11/10/2017 11/10/2018 1 1 Encounter Details Date Type Department Care Team (Late st Contact Info) Description 11/18/2017 9:00 AM EDT [facility] [place] [address] Oliver Carter MD [facility] [address] [place] [address] Disorder of rotator cuff of both shoulders Social History Tobacco Use [...] Sign Reading Time Taken Comments Blood Pressure 134/74 11/18/2017 8:51 AM EDT Pulse 66 11/18/2017 8:51 AM EDT Temperature - - Respiratory Rate - - Oxygen Saturation - - Inhaled Oxygen Concentration - - Weight 86.2 kg (190 lb) 11/18/2017 8:51 AM EDT v erbal Height 177.8 cm (5' 10) 11/18/2017 8:51 AM EDT verbal Body Mass Index 27.26 11/18/2017 8:51 AM EDT documented in this encounter Progress Notes * Oliver Carter MD - 11/18/2017 9:00 AM EDT Mr. Cat is a gentleman who is well-known to me for bilateral shoulder complaints that I have followed over the past 7-8 years. 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 He comes in today for evaluation of his left shoulder which I have also seen on occasion diagnosed as impingement/rotator cuff tendinitis. He has not ever had an MRI on this side but x-rays have been performed showing nosignificant degenerative disease. He is here today for reevaluation stating that he would like to review an exercise regimen on this shoulder as well as consider an injection into it. Physical exam of the left shoulder demonstrates a full arc of abduction forward flexion internal and external rotation. Strength is full to resistance including abduction, forward flexion, internal, and external rotation. He does have mildly positive provocative signs for impingement including a type I and type II impingement test. He has no tenderness over his AC joint and very minimal tenderness anteriorly with a positive Yergason sign. Radiographs are unremarkable Assessment and plan: Mr. Jimenez symptoms and exam is consistent with rotator cuff tendinosis/impingement on the left shoulder. We have made arrangements for him to meet with her therapist Leoncio Arevalo today who will show him a structured strengthening program and have also gone ahead and injected his subacromial space. The correct shoulder for injection was identified. The skin over the posterior shoulder was sterilely prepped with duraprep/chloraprep solution. The subacromial space was injected from a posterolateral approach with a mixture of 4cc of 1% lidocaine and 1cc of 40mg kenalog. The injection site was covered with a dry, sterile bandaide. The patient tolerated the procedure well and had immediate partial relief of their symptoms. Follow-up will be on an as-needed basis. Oliver Carter MD Eligibility Manager Orthopaedic Surgery Dept. of Orthopaedic Surgery [facility] documented in this encounter Plan of Treatment Scheduled Referrals Name Type Priority Associated Diagnoses Orde r Schedule Referral to Physical Therapy Outpatient Referral Routine Disorder of rotator cuff of both shoulders Ordered: 11/18/2017 documented as of this encounter Visit Diagnoses Diagnosis Disorder of rotator cuff of both shoulders Disorders of bursae and tendons in shoulder region, unspecified documented in this encounter Administered Medications Inactive Administered Medications - up to 3 most recent administrations Medication Order MAR Action Action Date Dose Rate Site triamcinolone acetonide (KENALOG-40) injection 40 mg 40 mg, Intra-articular, ONCE, 1 dose, On Fri11/18/17 at 1000, Routine Given 11/18/2017 9:35 AM EDT 40 mg documented in this encounter Care Teams Carton Folder Relationship Specialty Start Date End Date Washington Puckett MD [address] [place] [id number] PCP - General Internal Medicine 09/12/17 01/25/24 documented as of this encounter
--- OUTSIDE RECORDS SUMMARY | 2024-03-12 00:10 | XMS_ITS | Encounter Summary ---
Author Organization [facility] Address [facility] [place] [address] Care Team Providers Care Piecer Name Role Phone Diana Weaver MD Primary Care Provider [phone] Reason for Visit * Reason Comments Follow-up Right Shoulder Pain, Injection Encounter Details Date Type Department Care Team (Late st Contact Info) Description 06/18/2017 9:00 AM EST Office [place] [address] Priti Lilly, [facility] [place] [address] Pain in joint of right shoulder (Primary Dx); Disorder of right rotator cuff Social History Tobacco Use Types Packs/Day Years [...] Sign Reading Time Taken Comments Blood Pressure 170/92 06/18/2017 9:04 AM EST Pulse 65 06/18/2017 9:04 AM EST Temperature - - Respiratory Rate - - Oxygen Saturation - - Inhaled Oxygen Concentration - - Weight 79.8 kg (176 lb) 06/18/2017 9:04 AM EST Height 177.8 cm (5' 10) 06/18/2017 9:04 AM EST Body Mass Index 25.25 06/18/2017 9:04 AM EST documented in this encounter Progress Notes * Priti Lilly, WORKERS' COMPENSATION MEDIATOR - 06/18/2017 9:00 AM EST PATIENT NAME: Alvin Cat AGE: 71 y.o. MR#: [id number] DATE OF VISIT: 06/18/2017 DATE OF INJURY/ONSET: Chronic right shoulder RTC arthropathy STAFF: Dr. Carter CHIEF COMPLAINT: Right shoulder pain HISTORY OF PRESENT ILLNESS Mr. Emory umana 71 y.o. year old male comes into clinic today for above. Alvin is here requesting a right shoulder cortisone injection as an adjunct to his treatment. He isdoing ok with the shoulder with recurrence of night time pain. Pain is mostly at night. NO reportednew injuries or falls. There is no reported neck pain or radiculopathy. No reported constitutional or systemic complaints. No reported fevers or chills. His chronic medical illnesses are otherwise stable. Patient's medications, allergies, past medical, surgical, social and family histories were reviewedand updated as appropriate. ROS : Denies fever, chills, nausea, vomiting, vision change, shortness of breath, chest pain, vision changes, headaches, bowel or bladder problem, ear, nose, sinus problem, neuro or psychiatric, or endocrine disorder not addressed above. PHYSICAL EXAM: Vitals: 06/18/17 0904 BP: (!) 170/92 BP Location (NBP): Left arm Patient Position: Sitting BP Cuff Sizes: Adult (25-34 cm) Pulse: 65 Weight: 79.8 kg (176 lb) Height: 177.8 cm (5' 10) Body mass index is 25.25 kg/(m^2). Mr. Emory umana 71 y.o. is alert and oriented. He appears in no acute discomfort and is resting comfortably in a chair in the exam room. Inspection: Posture is slightly asymmetric. Palpation: + subacromial and lateral deltoid ROM: AFF 180 degrees. ER: 70 degrees. IR: T11 Strength: 4+/5 ER. 5/5 IR. Empty can 4/5. Belly press negative. Negative ER lag. No AC joint or proximal biceps symptoms. Neurovascular: Hand is sensate, well perfused, distal pulses are 2+ and equal. RADIOLOGICAL STUDIES: No new images. ASSESSMENT: 71 year old Male with right shoulder pain with chronic Right shoulder RTC arthropathy. Functional ROM is intact. Recurrent pain. PLAN: I spent approximately 15 minutes of this 20 minute appointment discussing Mr. Cat's radiologic findings and physical exam findings. Alvin is requesting a repeat cortisone injection in anticipation of a trip to [facility]. His most recent injection was in ~ 3 months ago. We typically like to go~ 4 months. We can try another injection today along with his deltoid program he is doing quite well. Ok to use OTC analgesics with oral NSAID's prn, and Cool packs and acetaminophen prn for pain no greater than 3 grams per day for breakthrough pain. Pt agrees, questions solicited/answered, will return as scheduled and as needed for concerns or questions. Pt understands they may also call us prn for above. Procedure: Right shoulder subacromial cortisone injection Prior to beginning conversation was held regarding the risks and benefits of cortisone injection. Atimeout was held confirming the correct side and medication. After which using appropriate sterile technique, with betadine and methyl chloride spray was used to anesthetize the skin. This was followed by injection of 4 ml of 1 % Lidocaine plain, and 40 mg of Kenalog. The patient tolerated this procedure well. documented in this encounter Plan of Treatment Not on file documented as of this encounter Visit Diagnoses Diagnosis Pain in joint of right shoulder- Primary Pain in joint, shoulder region Disorder of right rotator cuff Disorders of bursae and tendons in shoulder region, unspecified documented in this encounter Administered Medications Inactive Administered Medications - up to 3 most recent administrations Medication Order MAR Action Action Date Dose Rate Site lidocaine (XYLOCAINE) 20 mg/mL (2 %) injection 80 mg 80 mg, Subdermal, ONCE, 1 dose, On Fri06/18/17 at 0930, In-Office injection into the subacromial space of the shoulder., Routine Given 06/18/2017 9:13 AM EST 80 mg triamcinolone acetonide (KENALOG-40) injection 40 mg 40 mg, Intra-articular, ONCE, 1 dose, On Fri06/18/17 at 0930, Routine Given 06/18/2017 9:13 AM EST 40 mg documented in this encounter Care Teams Piecer Relationship Specialty Start Date End Date Diana Weaver MD [address] [place] [address] PCP - General 05/22/10 09/11/17 documented as of this encounter
--- OUTSIDE RECORDS SUMMARY | 2024-03-12 00:10 | XMS_ITS | Encounter Summary ---
Author Organization [facility] [place] [address] Care Team Providers Care Chart Reader Name Role Phone Diana Weaver MD Primary Care Provider [phone] Reason for Visit * Reason Onset Date Comments Injections 03/04/2017 Encounter Details Date Type Department Care Team (Late st Contact Info) Description 03/04/2017 Telephone [place] [id number] Oliver Carter MD [facility] [address] [place] [address] Injections Social History Tobacco Use Types Packs/Day Years [...] on file documented as of this encounter Miscellaneous Notes * Telephone Encounter - Michelle Madera - 03/04/2017 10:50 AM EDT Patient's request for injection appointment of the Right subacromical injection has been reviewed by Clinical Support. Is it too soon for patient to have this injection? No Date of last injection? 10/22/16 Is this a synvisc/orthovisc injection? no Enter [employer] Prior Auth if Synvisc or Orthovisc injection. Does this injection need to be scheduled in radiology under fluoro? no Have orders been placed? not applicable Injection within 3 months prior to joint arthroplasty or arthroscopy is associated with increased rates of postoperative infection: this includes, hip, knee, and shoulder. Ok to schedule right subacromial joint injection * Telephone Encounter - Citlalli Thompson - 03/04/2017 9:51 AM EDT Best phone # to reach patient for [phone] Patient requests appointment for injection of the Right shoulder. I will send this request to the Clinical Support team for review. Some injections require prior authorization, special orders, or an appointment somewhere other thanour clinic, so knowing this in advance will help us to better meet your needs. If the injection requires prior authorization, it may take 2-3 business days before we can scheduleyour appointment. As soon as this service approved by the clinical support team, we will call you to schedule the appointment. documented in this encounter Plan of Treatment Not on file documented as of this encounter Visit Diagnoses Not on filedocumented in this encounter Care Teams Chart Reader Relationship Specialty Start Date End Date Diana Weaver MD [address] [place] [address] PCP - General 05/22/10 09/11/17 documented as of this encounter
--- OUTSIDE RECORDS SUMMARY | 2024-03-12 00:10 | XMS_ITS | Encounter Summary ---
[place] [address] Care Team Providers Care Distribution Lead Name Role Phone Washington Puckett MD Primary Care Provider Reason for Referral * Diagnostic Test (Routine) - Closed Specialty Diagnoses / Procedures Referred By Ronald parada Referred To Contact Radiology Diagnoses Disorder of rotator cuff of both shoulders Procedures MRI Shoulder wo Contrast Left (Generic) Oliver Carter MD [facility] [place] [address] [place] [address] Referral ID Status Reason Start Date Expiration Date V isits Requested Visits Authorized [id number] Closed Specialty Service Requested 03/02/2019 03/01/2020 1 1 Reason for Visit * Reason Comments Follow-up left shoulder inj Encounter Details Date Type Department Care Team (Late st Contact Info) Description 03/02/2019 1:30 PM EDT Office [place] [address] Oliver Carter MD [facility] [place] [address] Disorder of rotator cuff of both shoulders [...] Sign Reading Time Taken Comments Blood Pressure 141/75 03/02/2019 1:36 PM EDT Pulse 71 03/02/2019 1:36 PM EDT Temperature - - Respiratory Rate - - Oxygen Saturation - - Inhaled Oxygen Concentration - - Weight 79.8 kg (176 lb) 03/02/2019 1:36 PM EDT Height 177.8 cm (5' 10) 03/02/2019 1:36 PM EDT Body Mass Index 25.25 03/02/2019 1:36 PM EDT documented in this encounter Progress Notes * Oliver Carter MD - 03/02/2019 1:30 PM EDT Mr. Cat is a gentleman who I have followed in the orthopedic clinic for many years for his bilateral shoulder pain. On his right side he has a massive irreparable rotator cuff tear for which sheis doing very well and on the left side we have presumed he has had partial-thickness tears versus rotator cuff tendinosis which we have treated with therapy and injections. He has never had a MRI done on the left side. He comes in today complaining of that left side saying that he is having significant night pain which is keeping him from sleeping but his day pain is manageable. He manages the discomfort with exercises and various medications. Physical exam demonstrates full arcs of motion bilaterally but with provocative signs of impingement on the left side greater than the right. His strength is 5/5 on the left throughout and 4+/5 to resisted external rotation and resisted abduction on the right. Assessment and plan: Because the patient has a massive irreparable tear on the right side I would like to investigate the left side to determine his stage of rotator cuff disease. He is agreed today to go forward with that MRI and I will see him back afterwards. If he has does not have a full-thickness tear or does have a massive irreparable tear then consideration for reinjection could be given.He is willing to consider surgical intervention if necessary if the MRI dictates that as a good option. Oliver Carter MD [employer] Orthopaedic Surgery Dept. of Orthopaedic Surgery [facility] documented in this encounter Plan of Treatment Not on file documented as of this encounter Results * MRI Shoulder wo Contrast Left (Generic) (03/30/2019 11:00 AM EDT) Anatomical Region Laterality Modality Shoulder Left Magnetic Resonan ce Impressions 03/30/2019 12:21 PM EDT 1. ??27 mm wide [maximal measurement] superior rotator cuff full-thickness tear involving both supraspinatus and infraspinatus tendons. 2. ??Subscapular tendinopathy. 3. ??No muscle atrophy. 4. ??Medial subscapular muscle strain, consider recent trauma that may not be related to rotator cuff pathology. 5. ??Biceps tendinopathy 6. ??AC joint osteoarthropathy 7. ??Glenohumeral joint osteoarthropathy with labral tears. 8. ??Effaced fat signal at rotator interval may represent fibroarthrosis and can be associated with symptoms of frozen shoulder. Thank you for letting us participate in the care of this patient. For questions regarding this report, please contact the number below. ? Electronically signed by: ROLANDO Solis [facility] ([phone]), at 03/30/2019 12:21 PM Narrative 03/30/2019 12:21 PM EDT EXAMINATION: MRI SHOULDER WO CONTRAST LEFT (GENERIC) CLINICAL HISTORY: ?? Longstanding rotator cuff disease; ?full thickness rotator cuff tear, , ??entered by ordering service COMPARISON: Radiographs October 2017 TECHNIQUE: Routine ??MRI of the Left shoulder was performed. FINDINGS: ACROMIOCLAVICULAR JOINT: There are inferior osteophytes, subchondral cysts,, marrow signal alteration and capsular thickening at AC joint. The bony overgrowth slightly deforms the supraspinatus muscle and tendon unit, No os acromiale. BURSA: Small amount of fluid of the subacromial subdeltoid bursa communicates with the glenohumeral joint through a cuff defect. ROTATOR CUFF: 25 width by 27 mm full-thickness cuff tear involves both supraspinatus and infraspinatus tendons. The tear starts at the anterior leading edge of the supraspinatus tendon and the greater tuberosity. The posterior fibers of the infraspinatus are not completely interrupted. These are attenuated with partial-thickness tear. The torn end of the superior cuff is at mid humeral level. The subscapular tendon is diffusely thick and heterogeneous at insertion with articular surface fraying but no full-thickness tear. MUSCULATURE: No muscle atrophy. Subscapular muscle-Slightly bright T2 signal in medial fibers, series 8 image 24 represents muscle strain. GLENOHUMERAL JOINT : Normal glenohumeral alignment. There are diffuse osteophytes. Rotator interval-the normal fat signal is completely effaced by intermediate T1 and T2 signal. The inferior glenohumeral ligament is diffusely thick. These findings have been associated with frozen shoulder or fibroarthrosis. CARTILAGE : Humeral head cartilage loss is most prominent beneath the cuff tear. No full-thickness cartilage defect in the glenoid. LABRUM: 1. ??Posterior-superior labrum- torn, series 4 image 16. 2. ??Posterior inferior labrum-torn at insertion, series 8 image 23. 3. ??Anterior superior labrum - no gross tear. 4. ??Anterior inferior labrum-no tear. 5. ??Perilabral cyst- none BICEPS TENDON: Diffuse thickening of the intra-articular segment of the biceps tendon representing tendinopathy. No tendon interruption. BONES: 1. ??Glenoid-normal morphology and depth. 2. ??Humeral head-no Hill-Sachs lesion seen. NERVES: No mass lesion in Quadrilateral space and along the suprascapular nerve Procedure Note Emperatriz Almanza MD - 03/30/2019 EXAMINATION: MRI SHOULDER WO CONTRAST LEFT (GENERIC) CLINICAL HISTORY: Longstanding rotator cuff disease; ?full thicknessrotator cuff tear, , entered by ordering service COMPARISON: Radiographs October 2017 TECHNIQUE: Routine MRI of the Left shoulder was performed. FINDINGS: ACROMIOCLAVICULAR JOINT: There are inferior osteophytes, subchondralcysts,, marrow signal alteration and capsular thickening at AC joint. The bony overgrowth slightly deforms the supraspinatus muscle and tendon unit, Noos acromiale. BURSA: Small amount of fluid of the subacromial subdeltoid bursa communicateswith the glenohumeral joint through a cuff defect. ROTATOR CUFF: 25 width by 27 mm full-thickness cuff tear involves both supraspinatusand infraspinatus tendons. The tear starts at the anterior leading edge ofthe supraspinatus tendon and the greater tuberosity. The posterior fibers ofthe infraspinatus are not completely interrupted. These are attenuated with partial-thickness tear. The torn end of the superior cuff is at midhumeral level. The subscapular tendon is diffusely thick and heterogeneous at insertionwith articular surface fraying but no full-thickness tear. MUSCULATURE: No muscle atrophy. Subscapular muscle-Slightly bright T2 signal in medial fibers, series 8image 24 represents muscle strain. GLENOHUMERAL JOINT : Normal glenohumeral alignment. There are diffuse osteophytes. Rotator interval-the normal fat signal is completely effaced byintermediate T1 and T2 signal. The inferior glenohumeral ligament is diffusely thick.These findings have been associated with frozen shoulder or fibroarthrosis. CARTILAGE : Humeral head cartilage loss is most prominent beneath the cufftear. No full-thickness cartilage defect in the glenoid. LABRUM: 1. Posterior-superior labrum- torn, series 4 image 16. 2. Posterior inferior labrum-torn at insertion, series 8 image 23. 3. Anterior superior labrum - no gross tear. 4. Anterior inferior labrum-no tear. 5. Perilabral cyst- none BICEPS TENDON: Diffuse thickening of the intra-articular segment of thebiceps tendon representing tendinopathy. No tendon interruption. BONES: 1. Glenoid-normal morphology and depth. 2. Humeral head-no Hill-Sachs lesion seen. NERVES: No mass lesion in Quadrilateral space and along the suprascapularnerve IMPRESSION 1. 27 mm wide [maximal measurement] superior rotator cuff full-thicknesstear involving both supraspinatus and infraspinatus tendons. 2. Subscapular tendinopathy. 3. No muscle atrophy. 4. Medial subscapular muscle strain, consider recent trauma that may notbe related to rotator cuff pathology. 5. Biceps tendinopathy 6. AC joint osteoarthropathy 7. Glenohumeral joint osteoarthropathy with labral tears. 8. Effaced fat signal at rotator interval may represent fibroarthrosisand can be associated with symptoms of frozen shoulder. Thank you for letting us participate in the care of this patient. Forquestions regarding this report, please contact the number below. Oliver Carter MD IMG MRI ORDERABLES documented in this encounter Visit Diagnoses Diagnosis Disorder of rotator cuff of both shoulders Disorders of bursae and tendons in shoulder region, unspecified Disorder of rotator cuff of both shoulders Disorders of bursae and tendons in shoulder region, unspecified documented in this encounter Care Teams Distribution Lead Relationship Specialty Start Date End Date Washington Puckett MD [address] [place] [id number] PCP - General Internal Medicine 09/12/17 01/25/24 documented as of this encounter
--- OUTSIDE RECORDS SUMMARY | 2024-03-12 00:10 | XMS_ITS | Encounter Summary ---
Author Organization [facility] [place] [address] Care Team Providers Care Lead Miner Name Role Phone Washington Puckett MD Primary Care Provider [phone] Reason for Visit * Reason Onset Date Comments Questions 01/27/2019 Other 01/27/2019 Encounter Details Date Type Department Care Team (Late st Contact Info) Description 01/27/2019 Tele[place] [address] Oliver Carter MD [facility] [place] [address] Questions; Other Social History Tobacco Use Types Packs/Day Years [...] encounter Miscellaneous Notes * Telephone Encounter - Wanda Rubio RN - 02/04/2019 11:18 AM EDT I called and spoke to patient. I discussed the plan of care as per Lara Amor's office note on 10/29/18-- if patient's left shoulder pain worsens to make a follow up visit with Dr. Carter to revisit the idea of arthroscopy. I informed patient an MRI was not part of the plan of care. Patienthas a follow up appointment with Dr. Carter on 03/02/19; I stated Dr. Carter will order an MRI if deemed as warranted. Patient voiced understanding. * Telephone Encounter - Leonarda Neely I - 02/04/2019 9:18 AM EDT Alvin is calling back on his request about the MRI of his left shoulder at [facility]. He is havingtrouble sleeping and would like to either have it before his appointment he has with Dr. Carter or ifresults will be in on the same day. If appropriate place orders. * Telephone Encounter - Radha Cornejo - 01/27/2019 10:22 AM EDT Alvin called to ask if he could have MRI orders placed for his left shoulder. He reports increasedpain as well as trouble sleeping. Sending email to Dr. Carter documented in this encounter Plan of Treatment Not on file documented as of this encounter Visit Diagnoses Not on filedocumented in this encounter Care Teams Lead Miner Relationship Specialty Start Date End Date Washington Puckett MD [address] [place] [address] PCP - General Internal Medicine 09/12/17 01/25/24 documented as of this encounter
--- OUTSIDE RECORDS SUMMARY | 2024-03-12 00:10 | XMS_ITS | Encounter Summary ---
Author Organization [facility] Address [facility] [place] [address] Care Team Providers Care Maple Syrup Maker Name Role Phone Washington Puckett MD Primary Care Provider Encounter Details Date Type Department Care Team (Latest Contact Info) Description 11/18/2017 8:13 AM EDT - 11/18/2017 11:59 PM EDT Hospital Encounter XRay at [address] [place] [address] Oliver Carter MD [facility] [place] [address] Chronic left shoulder pain Discharge Disposition: Home Social History Tobacco Use Types Packs/Day Years [...] on file documented as of this encounter Medications at Time of Discharge Medication Sig Dispensed Refills Start Date End Date traMADol (ULTRAM) 50 mg TabletIndications:PRN nightly 25 mg nightly. Indications: PRN nightly 0 11/14/2017 clindamycin (CLEOCIN) 150 mg Capsule take 4 capsules by mouth 1 hour prior to appointment 0 05/06/2017 ALPRAZolam (XANAX) 0.5 mg Tablet Take 0.5 mg by mouth nightly as needed for Sleep (1/2 tablet). TURMERIC (CURCUMIN MISC) 1,000 mg by Misc.(Non-Drug; Combo Route) route daily. valACYclovir (VALTREX) 1 gram Tablet take 2 tablets by mouth prn 0 02/05/2016 sildenafil (VIAGRA) 100 mg tablet Take 100 mg by mouth as needed. 25 mg - 50 mg prn senna (SENOKOT) 8.6 mg Tablet Take 1 tablet by mouth daily. 10/29/2018 amitriptyline (ELAVIL) 25 mg Tablet Take 1 tablet by mouth nightly. 30 tablet 11 07/02/2017 04/28/2018 lactobacillus rhamnosus, GG, (CULTURELLE) 10 billion cell Capsule Take 1 capsule by mouth daily. 04/28/2018 aspirin 81 mg Tablet, Chewable Take 81 mg by mouth daily. 30 tablet 3 06/05/2017 04/28/2018 naproxen (NAPROSYN) 500 mg Tablet Take 1 tablet by mouth 2 times daily as needed. 60 tablet 12 06/04/2017 10/29/2018 documented as of this encounter Plan of Treatment Not on file documented as of this encounter Procedures Procedure Name Priority Date/Time Associated Diagnosis Comments XR SHOULDER LEFT Routine 11/18/2017 8:31 AM EDT Chronic left shoulder pain documented in this encounter Results * XR Shoulder Left (Generic) (11/18/2017 8:31 AM EDT) Anatomical Region Laterality Modality Shoulder Left Digital Radiogra phy Impressions 11/18/2017 11:11 AM EDT Unchanged glenohumeral and acromial clavicular osteoarthropathy. Question small periarticular calcifications of the glenohumeral joint on the AP view, which may represent capsular calcifications, intraarticular bodies, or calcific deposits adjacent to the lesser tuberosity. Narrative 11/18/2017 11:11 AM EDT EXAMINATION: XR SHOULDER LEFT (GENERIC) CLINICAL HISTORY: Left Shoulder Pain TECHNIQUE: AP, Grashey, scapular Y, and x-ray views of the left shoulder COMPARISON: Bilateral shoulder radiograph 02/13/2016 FINDINGS: No visible fracture or malalignment. Mild glenohumeral joint space narrowing with small marginal osteophyte formation. Type II acromion. Severe osteoarthropathy the acromial clavicular joint where there is marginal osteophyte formation. Question small periarticular calcifications of the glenohumeral joint along the AP view. Procedure Note Steve Guo MD - 11/18/2017 EXAMINATION: XR SHOULDER LEFT (GENERIC) CLINICAL HISTORY: Left Shoulder Pain TECHNIQUE: AP, Grashey, scapular Y, and x-ray views of the left shoulder COMPARISON: Bilateral shoulder radiograph 02/13/2016 FINDINGS: No visible fracture or malalignment. Mild glenohumeral joint spacenarrowing with small marginal osteophyte formation. Type II acromion. Severe osteoarthropathy the acromial clavicular joint where there is marginal osteophyte formation. Question small periarticular calcifications of the glenohumeral joint along the AP view. IMPRESSION Unchanged glenohumeral and acromial clavicular osteoarthropathy. Questionsmall periarticular calcifications of the glenohumeral joint on the AP view,which may represent capsular calcifications, intraarticular bodies, or calcificdeposits adjacent to the lesser tuberosity. Oilver Carter MD IMG DX ORDERABLES documented in this encounter Visit Diagnoses Diagnosis Chronic left shoulder pain Pain in joint, shoulder region documented in this encounter Care Teams Maple Syrup Maker Relationship Specialty Start Date End Date Washington Puckett MD [address] [place] [address] PCP - General Internal Medicine 09/12/17 01/25/24 documented as of this encounter
--- OUTSIDE RECORDS SUMMARY | 2024-03-12 00:10 | XMS_ITS | Encounter Summary ---
Author Organization [facility] [place] [address] Care Team Providers Care Network/Telecom Engineer Name Role Phone Washington Puckett MD Primary Care Provider [phone] Reason for Visit * Reason Onset Date Comments Injections 04/21/2018 Encounter Details Date Type Department Care Team (Late st Contact Info) Description 04/21/2018 Telephone [place] [address] Oliver Carter MD [facility] [place] [address] Injections Social History Tobacco Use Types Packs/Day [...] encounter Miscellaneous Notes * Telephone Encounter - Alyce Stuart - 04/21/2018 11:39 AM EDT Patient scheduled * Telephone Encounter - Michelle Madera - 04/21/2018 10:01 AM EDT OK to schedule RIGHT shoulder subacromial injection in clinic with Dr. Carter * Telephone Encounter - Susan Guaman - 04/21/2018 9:54 AM EDT Best phone # to reach the patient for [phone] ok to leave a message Patient requests appointment for injection of the Right shoulder. Patient requests an injection of (product type: cortisone/Synvisc/Monovisc/other): Some injections require prior authorization, special orders, or an appointment somewhere other thanour clinic, so knowing this in advance will help us to better meet your needs. If the injection requires prior authorization, we will schedule your appointment no earlier than two weeks from the date that the order is entered in order to allow for the prior authorization process. Please note: if prior authorization is not completed before your appointment, we may need to callyou to reschedule your appointment. Did you inform the patient of the above: yes documented in this encounter Plan of Treatment Not on file documented as of this encounter Visit Diagnoses Not on filedocumented in this encounter Care Teams Network/Telecom Engineer Relationship Specialty Start Date End Date Washington Puckett MD [address] [address] PCP - General Internal Medicine 09/12/17 01/25/24 documented as of this encounter
--- OUTSIDE RECORDS SUMMARY | 2024-03-12 00:10 | XMS_ITS | Encounter Summary ---
Author Organization [facility] Address [facility] [place] [address] Care Team Providers Care Employee'S Representative Name Role Phone Diana Weaver MD Primary Care Provider [phone] Encounter Details Date Type Department Care Team (Late st Contact Info) Description 07/02/2017 11:00 AM EST Office [place] [address] Washington Deluca MD [facility] [place] [address] Migraine with aura and without status migrainosus, not intractable Social History Tobacco Use Types Packs/Day Years [...] Sign Reading Time Taken Comments Blood Pressure 158/85 07/02/2017 11:04 AM EST Pulse 78 07/02/2017 11:04 AM EST Temperature - - Respiratory Rate - - Oxygen Saturation - - Inhaled Oxygen Concentration - - Weight 88 kg (194 lb) 07/02/2017 10:55 AM EST Height 177.8 cm (5' 10) 07/02/2017 10:55 AM EST reported Body Mass Index 27.84 07/02/2017 10:55 AM EST documented in this encounter Progress Notes * Washington Deluca MD - 07/02/2017 11:00 AM EST Cerebrovascular Disease and Stroke Program [place] [address] t: [phone] / f: [phone] Date of Appointment: 07/02/2017 Patient: Alvin Cat This 72 y.o. is re-evaluated because of a presumed migraine with prolonged aura, treated with t-PA,and hospitalized here from Jun 02-. In the interim since last clinic visit, the patient has been well. There is no report of symptoms suggestive of recurrent TIA/Stroke. Medications are being taken as prescribed and without adverse symptoms. He actually has been VERY ENERGIZED since the event. Also his memory is much better and feelsmore creative. OTx friend checked his BP with a cuff and it was quite elevated and he saw Dr Bynum ambulatory BPs were done and mostly 140s and 150s and yesterday was in 130s. Mirtazepine for 1 week and some help with insomnia (slept a little longer until about 3 AM). Previously took alprazolam. Amitriptyline 10 mg no change and so dose increased to 20 mg and he is now very pleased with sleep. 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 Got a medical band and information on migraine and aphasia. Modified Jaswant Scale (MRS) 0: No symptoms at all 1: No significant disability despite symptoms; able to carry out all usual duties and activities 2: Slight disability; unable to carry out all previous activities, but able to look after own affairs without assistance 3: Moderate disability; requiring some help, but able to walk without assistance 4: Moderate disability; unable to walk without assistance and unable to attend to own bodily needs without assistance 5: Severe disability; bedridden, incontinent and requiring constant nursing care and attention 6: No flowsheet data found. Stroke:PROMIS-10 06/17/2017 Faawwi15-Akzuqjwn Health Score 54.1 Jbmjcl41-Ibnzaw Health Score 62.5 Health in general Very Good Quality of life Excellent Physical health Very Good Mental health Excellent Satisfaction with social activities Excellent Ability to carry out physical activities Completely Rate of pain 2 Rate of fatigue Mild Ability to carry out social activities Excellent Bothered by emotional problems Rarely Patient Active Problem List Diagnosis Code ??? Osteoarthritis M19.90 ??? CIS - asbestos exposure ??? CIS - Bilateral knee osteoarthritis ??? CIS - Bilateral knee pain ??? BPH (benign prostatic hyperplasia) N40.0 ??? Erectile dysfunction N52.9 ??? Condyloma A63.0 ? ? Rotator cuff disorder bilateral (R>L) M67.919 ??? 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 Pericardial effusion I31.3 ??? Dilated cardiomyopathy I42.0 ??? Dupuytren's disease M72.0 ??? CVA (cerebral vascular accident) I63.9 Allergies Allergen Reactions ??? Penicillins Other (See Comments) Unknown. Per patient partner, she does not believe this is true anaphylactic reaction. No outpatient prescriptions have been marked as taking for the 07/02/17 encounter (Appointment) with Washington Deluca MD. Outpatient Prescriptions Marked as Taking for the 07/02/17 encounter (Office Visit) with Washington Deluca MD Medication Sig Dispense Refill ??? senna (SENOKOT) 8.6 mg Tablet Take 1 tablet by mouth daily. ??? clindamycin (CLEOCIN) 150 mg Capsule take 4 capsules by mouth 1 hour prior to appointment 0 ??? ALPRAZolam (XANAX) 0.5 mg Tablet Take 0.5 mg by mouth nightly as needed for Sleep (1/2 tablet). ??? lactobacillus rhamnosus, GG, (CULTURELLE) 10 billion cell Capsule Take 1 capsule by mouth daily. ??? aspirin 81 mg Tablet, Chewable Take 81 mg by mouth daily. 30 tablet 3 ??? naproxen (NAPROSYN) 500 mg Tablet Take 1 tablet by mouth 2 times daily as needed. 60 tablet 12 ??? TURMERIC (CURCUMIN MISC) 1,000 mg by Misc.(Non-Drug; Combo Route) route daily. ??? valACYclovir (VALTREX) 1 gram Tablet take 2 tablets by mouth prn 0 ??? sildenafil (VIAGRA) 100 mg tablet Take 100 mg by mouth as needed. 25 mg - 50 mg prn Exam: Vitals: 07/02/17 1055 07/02/17 1104 BP: 172/87 158/85 BP Location (NB): Left arm Right arm Patient Position: Sitting Sitting BP Cuff Sizes: Adult (25-34 cm) Adult (25-34 cm) Pulse: 80 78 Weight: 88 kg (194 lb) Height: 177.8 cm (5' 10) Well appearing patient, nontoxic. Heart regular. No edema lower extremities. No wheezing or dyspneanoted. No rash, thyromegaly. Mood euthymic. Alert, oriented; attentive; speech fluent/articulate, no dysarthria, paraphasic errors or holly aphasia. No facial weakness. No pronator drift or tremor. Gait normal. Pulse regular. Data reviewed: None new Clinical impression and recommendations: Doing very well. Going to [place] for over a month now. Improved overall feeling ? due to improved insomina and amitriptyline. Also stopped benadryl and THC. BP quite elevated in clinic and came down on second reading suggesting an element of clinic HTN. Hewill continue to monitor this. He will switch to taking Naproxen to only as needed. If his shoulder pains worsen, he could take more often. Went over what to do if he has an aura including resting in a dark room and trying naproxen. Aspirin is optional and he will stop. Follow-up here as needed. I ordered no additional tests. We raised the amitriptyline to 25 mg (from 20 mg) and maybe this will also help some with his nocturia. documented in this encounter Plan of Treatment Not on file documented as of this encounter Visit Diagnoses Diagnosis Migraine with aura and without status migrainosus, not intractable Migraine with aura, without mention of intractable migraine without mention of status migrainosus documented in this encounter Care Teams Employee'S Representative Relationship Specialty Start Date End Date Diana Weaver MD [address] [place] [address] PCP - General 05/22/10 09/11/17 documented as of this encounter
--- OUTSIDE RECORDS SUMMARY | 2024-03-12 00:10 | XMS_ITS | Encounter Summary ---
[place] [address] Care Team Providers Care Access Rep Name Role Phone Washington Puckett MD Primary Care Provider [phone] Encounter Details Date Type Department Care Team (Late st Contact Info) Description 09/05/2017 [place] [address] Hattie Craig, RN Social History Tobacco Use Types Packs/Day Years [...] encounter Miscellaneous Notes * Telephone Encounter - Stephanie Holt - 09/08/2017 12:27 PM EDT Caller: Patient If not Pt / Relation to pt: Best time to reach caller: anytime Before 2:30pm - Informed caller that nurse will call back by the end of the day Best number to reach caller: [phone] Reason for call: Patient returned call. He states that everything has been good since discharge andwith medication. He does have a question about medication. Confirmed number and time Please Call to discuss * Telephone Encounter - Hattie Craig RN - 09/05/2017 8:50 AM EST Neurology Discharge 90 day post tPA/neuro-interventional procedure follow up Call placed to pt to follow up on hospitalization 09/05/2017 9:02. Message left on answering machine requesting call back Call returned to pt 09/09/2017, message left requesting call back and to ask nursing to be paged if phone not picked up Call returned to pt 09/10/2017, message left requesting call back and to ask nursing to be paged. Pt very interested in finding out what occurred during his hospitalization, wants to read the nursing notes. Pt given contact information for medical records. Pt says he notices more mental acuity since the tPA and his hospitalization, feeling very good about everything. Diagnosis on Discharge Aphasia possibly due to migraine with prolonged aura s/p IV thrombolysis Admit date: 06/02/2017 Discharge date and time: 06/04/1712:17 PM Attending Physician: Washington Deluca MD Intervention: tPA Have you called or made appointments with your PCP, [facility], an ER or urgent care facility, or other healthcare provider in the last few months for neurologic symptoms? If yes, what was the concern and the plan? Any changes to your medications or treatment plan? Is there an agency coming to help at home with physical therapy, occupational therapy, or nursing? N/A Any falls since discharge? No falls or balance problems, no assistive devices ??? If + fall, were there any injuries? Medication review. Pt now taking Naproxen PRN, has opted not to continue with ASA 81mg daily per discussion with Dr Deluca ??? Has there been any problem getting or taking medications (especially Plavix, Coumadin, Lovenox,or other anticoagulants)? Has there been any new symptoms or side effects since starting the new medications? i. Any new bleeding, bruising, constipation? Review health conditions that increase risk of stroke: (evaluate what health conditions patient identifies and interventions patient has begun to address risk factors) Risk Factor Treatment Goals Hypertension Patients with hypertension: <140/90 mm Hg; 10-mm Hg reduction in systolic BP and 5-mm Hg reduction in diastolic BP from baseline Patients with diabetes mellitus or renal disease: <130/80 mm Hg; 10-mm Hg reduction in systolic BP and 5-mm Hg reduction in diastolic BP from baseline Patients without hypertension: <120/80 mm Hg; 10-mm Hg reduction in systolic BP and 5-mm Hg reduction in diastolic BP from baseline Dyslipidemia Atherosclerotic stroke or TIA: low-density lipoprotein (LDL) cholesterol level <70 mg/dl or 50% reduction in LDL cholesterol level from baseline Nonatherosclerotic stroke or TIA: per National Cholesterol Education Program (NCEP) Adult TreatmentPanel III (ATP-III) goals Diabetes Mellitus HgA1c level <7% Cigarette Smoking Complete cessation Alcohol Consumption Men: two or fewer drinks per day Non woman: one or fewer drinks per day Physical Activity At least 30 minutes of moderate intensity physical exercise 1- 3 times per week Diet Low-fat, low-sodium, and Mediterranean or Dietary Approaches to Stop Hypertension diets (diabetic diet when applicable) Obesity Goal body mass index of 18.5-25 kg/m2 1- Could you live alone without any help from another person? This means being able to bathe, use the toilet, shop, prepare or get meals, and manage finances. (YES move to question 1a, NO go to question 3) a. Can you do everything that you were doing right before your stroke, even if slower and not as much? (YES ask question 2, NO = 2 points) 2- Are you completely back to the way you were right before your stroke (YES= 0 points, NO =1 point) 0 and better! 3- Can you walk from one room to another without help from another person? (YES = 3 points, NO ask question 3a) a. Can you sit up in bed without any help? (YES = 4 points, NO = 5 points) Score: 0 Review with the patient the 5 signs of a stroke? Make sure the patient is aware that not all symptoms need to be present. S/S stroke reviewed with pt, pt verbalized understanding 1. ~ numbness and/or weakness of face, arm, and/or leg especially on one side of body 2. ~ confusion, trouble speaking and/or understanding 3. ~ trouble seeing in one or both eyes 4. ~ trouble walking, dizziness, and/or decreased coordination, loss of balance 5. ~ severe headache with no known cause A reminder that if any of these signs or symptoms are present - call 911 immediately. Offer patient opportunity to ask questions documented in this encounter Plan of Treatment Not on file documented as of this encounter Visit Diagnoses Not on filedocumented in this encounter Care Teams Access Rep Relationship Specialty Start Date End Date Washington Puckett MD [address] [place] [address] PCP - General Internal Medicine 09/12/17 01/25/24 documented as of this encounter
--- OUTSIDE RECORDS SUMMARY | 2024-03-12 00:10 | XMS_ITS | Encounter Summary ---
Author Organization [facility] [place] [address] Care Team Providers Care Formula Clerk Name Role Phone Washington Puckett MD Primary Care Provider [phone] Encounter Details Date Type Department Care Team (Late st Contact Info) Description 11/18/2017 9:15 AM EDT Office [place] [address] Patel Arevalo, PT [facility] PHYS[facility] MED[facility] & [place] [address] Disorder of rotator cuff of both shoulders [...] as of this encounter Miscellaneous Notes * Initial Evaluation - Patel Arevalo, PT - 11/18/2017 9:15 AM EDT Images from the original note were not included. INITIAL OUTPATIENT PT TREATMENT: EVAL & RX _X_[facility] THERAPIST: Patel Arevalo PT DX: Rotator cuff impingement left shoulder REFERRING PHYSICIAN: Oliver Carter MD. S: Patient reports that he has been performing a deltoid retraining program for his right shoulder that has been successful however this has not been successful for the left shoulder and he wonders if there are any other exercises he should be performing. O: PT treatment was formulated in conjunction with the referring physician today during this clinic after a thorough and complete orthopedic evaluation including clinical exam and review of radiology studies. Dr. Carter also gave the patient a steroid injection for his left shoulder today. IMPAIRMENT SCREENING PAIN: _3-5_/10 left shoulder pain PALPATION: TTP subacromial region POSTURE: Forward head protracted shoulder girdle posturing ROM DEFICITS: Min close to within normal limits both shoulders STRENGTH DEFICITS: _-5/5 SPECIAL TESTS: Performed by Dr. Carter positive impingement test 1 and 2 left shoulder NEURO/VASCULAR: _+ Appear_Intact distally /__compromised TRANSFERS: Guarded/Independent GAIT: FWB ADL/FUNCTIONAL DEFICITS: __Unable to dress or bathe without the assistance of the noninvolved upper extremity. __Unable to transfer or ambulate without assistive device on level or uneven surfaces including stairs and inclines. _+_Unable to perform ADL, work, recreational or sporting activities without pain. INITIAL PT TREATMENT:Therex: Strength / Endurance / ROM PT -- 15 minutes ([id number]). Patient instructed in stretch #2 #3 Patient instructed in strengthening #4 and #6 using yellow Thera-Band. Perform #1 #2 #3 stretching exercises 1 set of 3 repetitions holding for 30-60 seconds twice a day. Perform #4 #5 #6 strengthening exercises 1 set of 8 repetitions once every other day (3 x wk). Gradually progress to 2 sets of 8 reps the 2nd wk and 3 sets of 8 reps the 3rd wk . Continue the strengthening exercises for 2-3 months unless otherwise specified by your Dr. or PT. Remember the importance of proper posture and body mechanics when performing your strengthening exercises ie #4#5#6 (squeeze both shoulder blades together & down toward your back pockets). STOP any exercises that increase pain levels more than expected and discuss this further with your PT. ([phone]) REMEMBER that most new exercises may seem painful at first but are not harmful. Applying a cold pack with a layer of towel between your skin and the cold pack x15 minutes with your involved extremity elevated above the level of your heart after exercise and activities will help to reduce pain and swelling . A: Clinical presentation seems consistent with the above DX . Signs and SX's appear to be stable and evolving . Pertinent comorbidities and personal factors affecting plan of care Include: History of bilateral shoulder impingement pain irreparable RC right shoulder symptomatic left shoulder. Clinical decision making CPT CODE LOW COMPLEXITY [id number] using standardized patient assessment instrument and measurable assessment of functional outcome per orthopedic initial intake questionnaire. Expect that skilled PT intervention is medically necessary to establish an appropriate home exercise Program to help this patient reach prior level of Functioning. MEDICARE CERTIFICATION PERIOD: 1 visit to establish a home exercise program 11-18-17 G-Code: Carrying, Moving & Handling Objects Status Modifier CURRENT CJ - At least 20 percent but less than 40 percent impaired, limited or restricted PROJECTED CJ - At least 20 percent but less than 40 percent impaired, limited or restricted DISCHARGE CJ - At least 20 percent but less than 40 percent impaired, limited or restricted G Code Rationale: This G-Code and these disability modifiers were selected on 11-18-17 as the primary therapy goal based upon the patient's evaluation including the following functional test(s) ASES Current ability measures, co- morbidities and clinical judgement were also used to select the disability modifier. Mr. Cat's current G-Code functional level is 33% impaired. Medicare Therapy G-Code Date Tracking: (Update G-Code status every 10 visits or when code changes) 1 2 3 4 5 6 7 8 9 10 11-18-17 P:D/C to initial PT home exercise program instructions noted above with option for follow-up if needed. PT ST GOALS : 3-6 wks [place] with home exercise program. Improve flexibility, stabilization & strength for safe ADL. PT LT GOALS : 3-6 months Improve power and proprioception for return to prior level ADL work, recreational, sport activities. TOTAL TREATMENT TIME: 23 minutes TOTAL CODED TIME: 15 minutes LOUIS PT documented in this encounter Plan of Treatment Not on file documented as of this encounter Visit Diagnoses Diagnosis Disorder of rotator cuff of both shoulders Disorders of bursae and tendons in shoulder region, unspecified documented in this encounter Care Teams Formula Clerk Relationship Specialty Start Date End Date Washington Puckett MD [address] [place] [address] PCP - General Internal Medicine 09/12/17 01/25/24 documented as of this encounter
--- OUTSIDE RECORDS SUMMARY | 2024-03-12 00:10 | XMS_ITS | Encounter Summary ---
Author Organization [facility] Address [facility] [place] [address] Care Team Providers Care Coat Cutter Name Role Phone Washington Puckett MD Primary Care Provider [phone] Reason for Visit * Reason Comments Follow-up left shoulder Encounter Details Date Type Department Care Team (Late st Contact Info) Description 03/30/2019 1:30 PM EDT [place] [address] Oliver Carter MD [facility] DR ORTHOPAEDIC [place] [address] Nontraumatic complete tear of left rotator cuff Social History Tobacco Use Types [...] Sign Reading Time Taken Comments Blood Pressure 131/64 03/30/2019 1:01 PM EDT Pulse 84 03/30/2019 1:01 PM EDT Temperature - - Respiratory Rate - - Oxygen Saturation - - Inhaled Oxygen Concentration - - Weight 79.8 kg (176 lb) 03/30/2019 1:01 PM EDT v erbal Height 177.8 cm (5' 10) 03/30/2019 1:01 PM EDT verbal Body Mass Index 25.25 03/30/2019 1:01 PM EDT documented in this encounter Progress Notes * Oliver Carter MD - 03/30/2019 1:30 PM EDT Mr. Cat returns for discussion of the results of the MRI of his left shoulder. Briefly he is [id number] gentleman with a known massive, irreparable rotator cuff tear on his right shoulder whohas also had increasing pain on his contralateral left shoulder. In the past we have treated him for rotator cuff tendinopathy on the side but he has had progressive and worsening pain on the side recently so we chose to proceed with an MRI to evaluate the status of his rotator cuff. He states the shoulder is feeling very good although he has occasional night pain and he remains without any loss of motion or any significant functional loss. Physical exam of the left side demonstrates a full arc of abduction forward flexion internal and external rotation with no specific arc of impingement pain. He has mild discomfort with provocative signs for impingement and his strength is 5/5 to resisted external rotation and 4/5 to resisted abduction with a negative liftoff sign and a negative belly press test. MRI is reviewed and does show medium to large rotator cuff tear with approximately 2.5 to 3 cm of retraction with a width of about 2-1/2 cm involving primarily the supraspinatus tendon and perhaps the superior portion of the infraspinatus as well. He has grade 2 atrophy of the supraspinatus with noother atrophy of his remaining rotator cuff musculature. Assessment and plan: Medium to large rotator cuff tear left shoulder which presently appears reparable. A long discussion was held with the patient once again about his rotator cuff tear. He remains quite adamant that his symptoms are not severe enough for him to want to consider surgical treatment. We did discuss that his tear is presently at a size that is likely reparable but could become irreparable over time. Understanding this he still does not feel as though he would like to proceed withany type of surgical repair but would rather have an injection for his low-grade pain as he is leaving the area to return to [place] for 6 months. We did discuss that steroid injections do worsen thechance of future healing of her repair and also increase the risk of infection in the future. Stillunderstanding these risks he chooses to proceed with an injection which was performed. The correct shoulder for injection was identified. [...] had immediate partial relief of their symptoms. We will plan on following up with him in approximately 6 months and he will make that appointment after he returns from [place]. If he is still doing well we can continue to consider nonoperative measures but if he has worsening of his condition we may need to consider another MRI before proceedingwith any attempted surgical repair. Oliver Carter MD [employer] [facility] Dept. of Orthopaedic Surgery [facility] documented in this encounter Plan of Treatment Not on file documented as of this encounter Visit Diagnoses Diagnosis Nontraumatic complete tear of left rotator cuff documented in this encounter Administered Medications Inactive Administered Medications - up to 3 most recent administrations Medication Order MAR Action Action Date Dose Rate Site triamcinolone acetonide (KENALOG-40) injection 40 mg 40 mg, Intra-articular, ONCE, 1 dose, On Fri03/30/19 at 1500, Routine Given 03/30/2019 2:37 PM EDT 40 mg documented in this encounter Care Teams Coat Cutter Relationship Specialty Start Date End Date Washington Puckett MD [address] [place] [address] PCP - General Internal Medicine 09/12/17 01/25/24 documented as of this encounter
--- OUTSIDE RECORDS SUMMARY | 2024-03-12 00:10 | XMS_ITS | Encounter Summary ---
Author Organization [facility] [place] [address] Care Team Providers Care Director Software Development Name Role Phone Diana Weaver MD Primary Care Provider [phone] Encounter Details Date Type Department Care Team (Latest Contact Info) Description 06/01/2017 - 06/01/2017 11:59 PM EST Hospital Encounter [place] [address] Discharge Disposition: Home Social History Tobacco Use [...] Sig Dispensed Refills Start Date End Date clindamycin (CLEOCIN) 150 mg Capsule take 4 capsules by mouth 1 hour prior to appointment 0 05/06/2017 TURMERIC (CURCUMIN MISC) 1,000 mg by Misc.(Non-Drug; Combo Route) route daily. valACYclovir (VALTREX) 1 gram Tablet take 2 tablets by mouth prn 0 02/05/2016 sildenafil (VIAGRA) 100 mg tablet Take 100 mg by mouth as needed. 25 mg - 50 mg prn doxycycline (VIBRA-TABS) 100 mg Tablet take 1 tablet by mouth twice a day 0 05/15/2017 06/18/2017 diphenhydrAMINE (BENADRYL) 25 mg Capsule Take 25 mg by mouth nightly as needed for Sleep. 06/09/2017 ibuprofen (ADVIL;MOTRIN) 200 mg Tablet Take 200 mg by mouth every 6 hours as needed for Pain. 06/09/2017 naproxen sodium (ALEVE) 220 mg Capsule Take 220 mg by mouth. Reported on 10/22/2016 06/04/2017 traMADol (ULTRAM) 50 mg Tablet Take 50 mg by mouth nightly. 0 01/19/2016 06/18/2017 clindamycin (CLEOCIN) 150 mg capsule Take 150 mg by mouth 2 times daily. Prior to dental procedures 06/02/2017 acetaminophen (TYLENOL) 500 mg tablet Take 1,000 mg by mouth 2 times daily. 01/10/2011 06/18/2017 documented as of this encounter Plan of Treatment Not on file documented as of this encounter Procedures Procedure Name Priority Date/Time Associated Diagnosis Comments FILM LIBRARY STORAGE ONLY CT HEAD Routine 06/01/2017 12:00 AM EST Pain documented in this encounter Results * Film Library- Storage Only CT Head (06/01/2017 12:00 AM EST) Narrative [place] - 06/02/2017 7:25 PM EST This exam is for storage only and is auto-finalizing. Dinh Rapp MD G FILM LIBRARY ORD ERABLES Performing Organization Address City/State/[facility] Co de Phone Number [place], [place] documented in this encounter Visit Diagnoses Not on filedocumented in this encounter Care Teams Director Software Development Relationship Specialty Start Date End Date Diana Weaver MD [address] [place] [address] PCP - General 05/22/10 09/11/17 documented as of this encounter
--- OUTSIDE RECORDS SUMMARY | 2024-03-12 00:10 | XMS_ITS | Encounter Summary ---
[facility] [place] [address] Care Team Providers Care High Frequency Mill Operator Name Role Phone Diana Weaver MD Primary Care Provider [phone] Encounter Details Date Type Department Care Team (Late st Contact Info) Description 06/06/2017 [place] [id number] Hattie Craig RN Social History Tobacco Use Types Packs/Day [...] encounter Miscellaneous Notes * Telephone Encounter - Hattie Craig RN - 06/06/2017 3:31 PM EST Neurology Discharge 7 day post discharge follow up Call placed to pt 06/06/2017 3:38, message left on voicemail requesting call back Call placed to pt 06/09/2017. Spoke with pt and on phone. Pt is doing well, he has a friend who is an OT and determined that his home BP monitor was not accurate. Pt's BP was elevated at PCP office, in the 180's. Pt now says BPs are in the 120's-130's and pt has not had any night sweats. Pt is not taking the Amitriptyline, PCP put him on Restoril 15mg at bedtime for sleep and started him on Naproxen 500mg BID for rotator cuff. Pt instructed to monitor for increase in headaches, Pt also instructed to speak with PCP re: PPI or other protective medication for retirement NSAID use. 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 Medication Reconciliation: Current Outpatient Prescriptions Medication Sig Dispense Refill ??? aspirin 81 mg Tablet, Chewable Take 81 mg by mouth daily. 30 tablet 3 ??? naproxen (NAPROSYN) 500 mg Tablet Take 1 tablet by mouth 2 times daily as needed. 60 tablet 12 ??? amitriptyline (ELAVIL) 10 mg Tablet Take 1 tablet by mouth nightly. 30 tablet 3 ??? diphenhydrAMINE (BENADRYL) 25 mg Capsule Take 25 mg by mouth nightly as needed for Sleep. ??? ibuprofen (ADVIL;MOTRIN) 200 mg Tablet Take 200 mg by mouth every 6 hours as needed for Pain. ??? TURMERIC (CURCUMIN MISC) by Misc.(Non-Drug; Combo Route) route. ??? valACYclovir (VALTREX) 1 gram Tablet take 2 tablets by mouth prn 0 ??? traMADol (ULTRAM) 50 mg Tablet Take 50 mg by mouth nightly. 0 ??? acetaminophen (TYLENOL) 500 mg tablet Take 1,000 mg by mouth 2 times daily. ??? sildenafil (VIAGRA) 100 mg tablet Take 100 mg by mouth as needed. 25 mg - 50 mg prn No current facility-administered medications for this visit. New Medication started: Yes (Explain): see below New Medications ? Dose Details ?? amitriptyline 10 mg Tab Commonly known as: ELAVIL Take 1 tablet by mouth nightly. ? aspirin 81 mg Chew Take 81 mg by mouth daily. Start taking on: 06/05/2017 ? naproxen 500 mg Tab Commonly known as: NAPROSYN Take 1 tablet by mouth 2 times daily as needed. ?? Discontinued Medication: Yes (Explain): see below STOPPED Medications ? naproxen sodium 220 mg Cap Commonly known as: ALEVE Dose change Adherence Issues: (financial/transportation): Have you had any trouble getting or taking your medications (especially Plavix, Coumadin, Lovenox, or other anticoagulants)? Have you had any new symptoms since you started the medications? Have you had any bleeding, bruising, constipation, or other side effects? Clarify Appointments: Assure that patient understands reason for followup appointments and contact information PCP: Pt saw PCP on Friday, got 24 hour BP monitor. PCP is following BP closely Specialist: ?? 07/02/2017 1:00 PM Washington Deluca MD Neurology at [place] [phone] Diagnostic (lab/radiology) Are coordination of discharge services (home care/DME/meals on wheels, example) needed? Not ordered if yes assure that patient understands reason for services and contact information and fill out information below Have you fallen since you have been home? No falls reported If you have fallen, did you get hurt when you fell? Are you using a walker, cane, ski poles, or other tools to help you move around inside and outside your home? Is this new? Questions about your hospital stay Did you have a chance to look at the information you were given about your stroke/TIA? Do you feel confident that you and your family have the information you need now that you are home? Were you happy with the care you got in the hospital? Pt's said that she would give it 100% says everyone from Transportation on was all so considerate. says that she got plenty oftime speaking with the physician and that her questions were answered For Smokers: Have you smoked since you got home from the hospital? Would you like information on help to quit smoking? Are you familiar with the 5 signs of a stroke? You should know every sign even if you did not have all the symptoms yourself. ??? Sudden NUMBNESS or weakness of face, arm, or leg, especially on one side of the body ??? Sudden CONFUSION, trouble speaking or understanding speech ??? Sudden TROUBLE SEEING in one or both eyes ??? Sudden TROUBLE WALKING, dizziness, loss of balance or coordination ??? Sudden SEVERE HEADACHE with no known cause If you or someone else shows any of these symptoms, immediately call 9-1-1 or emergency medical services. Action Plan - assure patient understands action plan ??? What to do if emergent symptoms occur discussed Yes (Explain): S/S Stroke reviewed with pt and on phone, both pt and verbalized understanding of information/instructions What to do if urgent symptoms occur discussed Yes (Explain): Pt given contact information for Neurology team ??? Plan ahead for your office visit by bringing in your written questions. ??? Bring list of all medications or bring in actual medications to each office visit. It is important that you also have an opportunity to ask questions that have come up since you havebeen home. It may be helpful for you keep a notebook that you bring to your appointments so you canwrite down your questions and the answers that you are given. You may have questions about activities, if it is safe for you to drive, or if you should return towork. documented in this encounter Plan of Treatment Not on file documented as of this encounter Visit Diagnoses Not on filedocumented in this encounter Care Teams High Frequency Mill Operator Relationship Specialty Start Date End Date Diana Weaver MD [address] [place] [address] PCP - General 05/22/10 09/11/17 documented as of this encounter
--- OUTSIDE RECORDS SUMMARY | 2024-03-12 00:10 | XMS_ITS | Encounter Summary ---
Author Organization [facility] Address [facility] [place] [address] Care Team Providers Care Graphic Editor Name Role Phone Diana Weaver MD Primary Care Provider [phone] Reason for Visit * Reason Comments Right Shoulder Pain Encounter Details Date Type Department Care Team (Late st Contact Info) Description 10/22/2016 2:30 PM EDT Office [place] [address] Oliver Carter MD [facility] [place] [address] Disorder of rotator cuff of both shoulders [...] Sign Reading Time Taken Comments Blood Pressure 130/81 10/22/2016 2:13 PM EDT Pulse 80 10/22/2016 2:13 PM EDT Temperature - - Respiratory Rate - - Oxygen Saturation - - Inhaled Oxygen Concentration - - Weight 83.9 kg (185 lb) 10/22/2016 2:13 PM EDT Height 179.1 cm (5' 10.5) 10/22/2016 2:13 PM ED T Body Mass Index 26.17 10/22/2016 2:13 PM EDT documented in this encounter Progress Notes * Oliver Carter MD - 10/22/2016 2:30 PM EDT Mr. Cat is a 71-year-old gentleman who was last seen approximately 6 months ago, primarily for his right shoulder, for which he has been diagnosed with a massive rotator cuff tear. We had made a decision to proceed with surgical intervention but he held off because he was doing so well following an injection and an anterior deltoid retraining program. He then left for [place] and states he has actually done quite well with his deltoid strengthening program. He comes in today stating the shoulder is doing quite well with good range of motion as he is doing most and many of the activities that he enjoys, including swimming and other overhead activities without significant discomfort. He, however, would like to try another injection since he got such good dramatic relief with the first one, given to him 6 months ago. Physical exam today demonstrates active abduction to 170 degrees, forward flexion to a similar amount, external rotation to 60 degrees. Plan is for Mr. Cat to undergo a subacromial injection since it gave him such good relief and he will continue with his rehab program which seems to be working for him quite well. We therefore prepped the posterolateral right shoulder region with DuraPrep and then injected the subacromial space with a combination of 4 mL of 1% lidocaine and 40 mg of Kenalog. This was done after properly identifying the correct shoulder for injection. We will plan on seeing Mr. Cat back on an as needed basis as he does understand that his tear can progress and he can both get increased pain as well as increased weakness over time and that if his cuff was repairable we may lose the opportunity to do that. documented in this encounter Plan of Treatment [...] 40 mg, Intra-articular, ONCE, 1 dose, On Tu10/22/16 at 1545, Routine Given 10/22/2016 3:15 PM EDT 40 mg documented in this encounter Care Teams Graphic Editor Relationship Specialty Start Date End Date Diana Weaver MD [address] [place] [address] PCP - General 05/22/10 09/11/17 documented as of this encounter
--- OUTSIDE RECORDS SUMMARY | 2024-03-12 00:10 | XMS_ITS | Encounter Summary ---
Author Organization [facility] Address [facility] [place] [address] Care Team Providers Care Clinical Appeals Specialist Name Role Phone Diana Weaver MD Primary Care Provider [phone] Reason for Visit * Reason Onset Date Comments Injections 05/01/2017 Encounter Details Date Type Department Care Team (Late st Contact Info) Description 05/01/2017 Telephone [place] [id number] Oliver Carter MD [facility] [place] [address] Injections Social History Tobacco Use Types Packs/Day [...] encounter Miscellaneous Notes * Telephone Encounter - Thuan Aquino - 05/16/2017 8:08 AM EST I called and left a message for Mr. Cat that he may have injection as requested below per Dr. Carter e-mail of 05.15.17 1:09PM. * Telephone Encounter - Thuan Aquino - 05/05/2017 9:29 AM EST Alvin called wanting to schedule his appointment for the week of 06.17.17. He wants to make sure that Dr. Carter is the one giving the instructions for a four months interval, he understood 3 month intervals. He said he was told he could get the injection in May by someone, and specifically 06-17-17 through 07.02.18. He will otherwise not be able to get an injection elsewhere. Please verify that it has to be over four months and why. He further wants it known that the injection is necessary to continue with deltoid training. If he doesn't get the injection, he will not be able. Please call him back at [phone]. * Telephone Encounter - Priti Vasques - 05/02/2017 10:13 AM EDT Images from the original note were not included. LM # 1 to schedule follow up with Dr Carter on 07/18/17 for Right Shoulder Injection. He can use OTC anti inflammatories, but he can not get another injection until 07/18/2017. When is he leaving? Previous Messages ?? ----- Message ----- ? From: Priti Vasques ? Sent: 05/02/2017 ?? 9:59 AM ? To: [facility] Nurse ----- Message from Priti Vasques sent at 05/02/2017 ??9:59 AM EDT ----- Kenalog is a type of cortisone injection. It is too soon for patient to receive any type of cortisone injection. Rich, Annalise ----- Message ----- ? From: Priti Vasques ? Sent: 05/02/2017 ?? 9:48 AM ? To: [facility] Nurse * Telephone Encounter - Priti Vasques - 05/02/2017 9:56 AM EDT Patient is leaving for [place] then so 07/18/17 is there nothing * Telephone Encounter - Priti Vasques - 05/02/2017 9:47 AM EDT Images from the original note were not included. Patient is looking for a Cortisone injection of the Right Shoulder not Kenalog Injection Aguila Flynn, ELIZABETH to Citlalli Thompson ?? 05/01/17 11:50 AM It is too soon to get another Kenalog injection. Shoulders require 4 months between injections and his last injection was 03/18/2017, so he would not be able to get another injection until after 07/18/2017. * Telephone Encounter - Citlalli Thompson - 05/01/2017 10:35 AM EDT Best phone # to reach patient for [phone] Patient requests appointment for injection of the Right shoulder. Patient requests an injection of (product type: cortisone/Synvisc/Monovisc/other): Cortisone I will send this request to the Clinical Support team for review. Some injections require prior authorization, special orders, or an appointment somewhere other thanour clinic, so knowing this in advance will help us to better meet your needs. If the injection requires prior authorization, it may take 14 or more business days before we can schedule your appointment. As soon as this service approved by the clinical support team, we will call you to schedule the appointment. documented in this encounter Plan of Treatment Not on file documented as of this encounter Visit Diagnoses Not on filedocumented in this encounter Care Teams Clinical Appeals Specialist Relationship Specialty Start Date End Date Diana Weaver MD [address] [place] [address] PCP - General 05/22/10 09/11/17 documented as of this encounter
--- OUTSIDE RECORDS SUMMARY | 2024-03-12 00:10 | XMS_ITS | Encounter Summary ---
Author Organization [facility] [place] [address] Care Team Providers Care Job Developer Name Role Phone Washington Puckett MD Primary Care Provider [phone] Encounter Details Date Type Department Care Team (Late st Contact Info) Description 03/30/2019 11:20 AM EDT Office Visit [facility] [place] [address] Andrea Caceres SENIOR INDUSTRIAL ENGINEER [place] [address] Chronic bilateral low back pain without sciatica Social History Tobacco Use Types Packs/Day Years [...] on file documented as of this encounter Progress Notes * Andrea Caceres APRN - 03/30/2019 11:20 AM EDT SUBJECTIVE: Alvin Cat is a 73 y.o. year old male being seen at the request of Self with a chief complaint of low back pain. Patient states that he has had low back pain intermittently for at least 10years but states that the pain has become more severe and more persistent essentially daily over the last year. He describes the pain is being bilateral of midline in the low lumbar spine and denies pain numbness or weakness in the buttocks or either lower extremity. His back pain is primarily aggravated by standing still and is alleviated by sitting or lying down. He is able to walk a mile or more with minimal back pain. Sleep is generally not disrupted by the symptoms. Prior treatments include ibuprofen which is helpful, acetaminophen helpful, in the remote past physical therapy not helpful. Review of systems is negative for constitutional, GI, symptoms. 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 Past medical history includes cardiomyopathy, OA, bilateral knee OA, BPH, and bilateral rotator cuff tear. He is status post bilateral TKA. OBJECTIVE: On examination the patient's affect is bright, his speech is in good time to the point, he respondsappropriate to questions of direction. He stands a level hips and straight lumbar spine with no obvious deformity and is nontender midline or bilateral paraspinals. Lumbar ROM is 55 degrees of flexion and 5 degrees of extension both of which aggravate low back pain. He walks with a steady gait, is able to toe walk, heel, and tandem walk. Motor exam is 5/5 strength of all lower extremity muscle groups bilaterally. Sensation is intact in all dermatomes lower extremities. Reflexes are 0 at the knees, 0 to ankles. There is no clonus or Babinski. Hip ROM and straight leg raise exams are negative. SI joint provocation exam is negative bilaterally. There is no lumbar spine imaging to review. ASSESSMENT: This is a 73 y.o. year old male with chronic bilateral mechanical low back pain with no radicular symptoms and reassuring physical exam. I explained to the patient that I suspect based on his age he does have some lumbar spondylosis and we discussed treatment options. After discussed the various treatment options he will reflect on the potential benefits of Alisha based physical therapy. At this point he is not interested in pursuing injection. The treatments I recommend the patient concentrate on our Alisha based physical therapy, heat, massage, acupuncture, lenard chi, yoga, chiropractor, mindfulness based stress reduction, he is Arty taking NSAIDs, should those treatments fail possible consideration of injection.. PLAN: 1/electric heating pad 30 minutes twice a day for 2 weeks to the low back and may continue with effective. 2/if the patient calls to requested referral for mechanical diagnosis and therapy with a commodity management specialist physical therapist or to [address] certified physical therapist close to the patient's home would be a good option. documented in this encounter Plan of Treatment Not on file documented as of this encounter Visit Diagnoses Diagnosis Chronic bilateral low back pain without sciatica documented in this encounter Care Teams Job Developer Relationship Specialty Start Date End Date Washington Puckett MD [address] [place] [id number] PCP - General Internal Medicine 09/12/17 01/25/24 documented as of this encounter
--- OUTSIDE RECORDS SUMMARY | 2024-03-12 00:10 | XMS_ITS | Encounter Summary ---
Author Organization [facility] [place] [address] Care Team Providers Care Check Airman Name Role Phone Diana Weaver MD Primary Care Provider [phone] Reason for Visit * Reason Comments Aftercare Of [facility] Bilat TKR 05/08/2010 Encounter Details Date Type Department Care Team (Late st Contact Info) Description 06/18/2017 10:50 AM EST Office [place] [address] Clinic, [address] Post Team None Status post total bilateral knee replacement Social History Tobacco Use Types Packs/Day Years [...] Sign Reading Time Taken Comments Blood Pressure 144/70 06/18/2017 11:21 AM EST Pulse 79 06/18/2017 11:21 AM EST Temperature - - Respiratory Rate - - Oxygen Saturation - - Inhaled Oxygen Concentration - - Weight 83.6 kg (184 lb 3.2 oz) 06/18/20 17 11:21 AM EST actual Height 177.8 cm (5' 10) 06/18/2017 11: 21 AM EST pt reported Body Mass Index 26.43 06/18/2017 11:21 AM EST documented in this encounter Progress Notes * Del Frank MD - 06/18/2017 10:50 AM EST Arthroplasty/Orthopaedic History: 1. Bilateral TKA 05/08/2010 HPI: Alvin Cat is a very pleasant 71 y.o. year-old male and is now 7 years post bilateral total knee replacement The patient has been doing very well over the last couple of years. Feels likethe knees are working great. Occasionally will get a rubbing sensation along the medial femoral condyle of the R knee but this is more of an irritant than a painful problem. No fevers, chills, nausea, vomiting, or symptoms of infection. Alvin has been ambulating with no assistive device. ROS: Denies: fever, chills, night sweats, nausea, or vomiting BP 144/70 Pulse 79 Ht 177.8 cm (5' 10) Comment: pt reported Wt 83.6 kg (184 lb 3.2 oz) Comment: actual BMI 26.43 kg/m2 Physical Exam: Well-appearing male in no acute distress. Alert and Oriented x 3 and answers all questions appropriately. The incisions are well healed, with no signs of infection. I have made the following determinations: Post Op Right Knee Exam: Knee ROM: Extension:0 Flexion: 130 Alignment: 0-4 degrees Neutral Stability: A/P Translation <5mm. Varus <5mm Valgus <5mm Extension La degrees or less Patella Tracking: Normal Pulses Palpable: Right PT: Yes Right DP:Yes Motor/Sensory: Distal Motor: Normal Distal Sensory: Normal Quadriceps Strength: 5 Post Op Left Knee Exam: Knee ROM: Extension:0 Flexion: 130 Alignment: 0-4 degrees Neutral Stability: A/P Translation <5mm Varus <5mm Valgus <5mm Extension La degrees or less Patella Tracking: Normal Pulses Palpable: Left PT:Yes Left DP:Yes Motor/Sensory: Distal Motor: Normal Distal Sensory: Normal Quadriceps Strength:5 X-RAYS: Multiple radiographic views were obtained at my request and reviewed with the patient. X-rays show a well-placed prosthesis with no evidence of fracture, subsidence, loosening, or periprosthetic complication. Questionnaire Responses:[facility] Surgical Postop Visit 06/17/2017 PROMIS-10 General Health Very Good PROMIS-10 Quality of Life Excellent PROMIS-10 Physical Health Very Good PROMIS-10 Mental Health Excellent PROMIS-10 Social Activity Excellent PROMIS-10 Everyday Activities Completely PROMIS-10 Pain 2 PROMIS-10 Fatigue Mild PROMIS-10 Social Roles Excellent PROMIS-10 Anxious or Depressed Rarely PROMIS PHYSICAL HEALTH SCORE 54.1 PROMIS MENTAL HEALTH SCORE 62.5 KOOS JR Scores 84.6 TKA Grade 9 Satisfaction with Treatment Satisfied Choose Same Treatment Again Probably yes [facility] Response 06/17/2017 KOOS JR Scores 84.6 ASES VAS-RIGHT 3 ASES VAS-LEFT 2 ASES ADL-RIGHT ARM 19 ASES ADL-LEFT ARM 22 ASES RIGHT ARM 66.66 ASES LEFT ARM 76.66 Spine [facility] Response 06/17/2017 KOOS JR Scores 84.6 ASSESSMENT/PLAN: Mr. Cat is a 71 y.o. year old male status post bilateral total knee replacement. Overall doing well with TKAs. Discomfort likely 2/2 to persistent scar tissue. No pain with ROM,no swelling in joint. Implants appear stable on XR. Plan for f/u 2 years with new xrays of bilateral knees at that time. Signed: DEL FRANK MD 06/18/2017 * Ed Post MD - 06/18/2017 10:50 AM EST I saw and evaluated the patient. I was integral in formulating the plan as outlined. ED POST MD documented in this encounter Plan of Treatment Not on file documented as of this encounter Visit Diagnoses Diagnosis Status post total bilateral knee replacement documented in this encounter Care Teams Check Airman Relationship Specialty Start Date End Date Diana Weaver MD [address] [place] [address] PCP - General 05/22/10 09/11/17 documented as of this encounter
--- OUTSIDE RECORDS SUMMARY | 2024-03-12 00:10 | XMS_ITS | Encounter Summary ---
[place] [address] Care Team Providers Care Delivery Man Name Role Phone Diana Weaver MD Primary Care Provider [phone] Reason for Visit * Auth/Cert Specialty Diagnoses / Procedures Referred By Ronald t Referred To Contact Diagnoses CVA (cerebral vascular accident) CVA Referral ID Status Reason Start Date Expiration Date Visits Re quested Visits Authorized [id number] 1 1 Encounter Details Date Type Department Care Team (Latest Contact Info) Description 06/02/2017 1:25 PM EST - 06/04/2017 12:57 PM [facility] Hospital Encounter [address] [place] [address] Washington Deluca MD [facility] [place] [address] Dm Fenton MD [facility] [place] [address] Cerebrovascular accident (CVA), unspecified mechanism; Pain Discharge Disposition: Home Social History Tobacco Use [...] Sign Reading Time Taken Comments Blood Pressure 162/84 06/04/2017 11:45 AM EST RN aware Pulse 59 06/04/2017 11:45 AM EST Temperature 37 ??C (98.6 ??F) 06/04/2017 11:45 AM EST Respiratory Rate 16 06/04/2017 11:45 AM EST Oxygen Saturation 100% 06/04/2017 11:45 AM EST Inhaled Oxygen Concentration - - Weight 78.1 kg (172 lb 3.2 oz) 06/02/2017 2:00 P M EST Height 177.8 cm (5' 10) 06/02/2017 2:15 PM EST Body Mass Index 24.71 06/02/2017 2:00 PM EST documented in this encounter Discharge Summaries * Washington Deluca MD - 06/04/2017 12:16 PM EST Discharge Summary Patient Name: Alvin Cat Patient Age: 71 y.o. Language: Welsh Race: White Ethnicity: Not nor Admit date: 06/02/2017 Discharge date and time: 06/04/1712:17 PM Attending Physician: Washington Deluca MD Discharge Physician: Washington Deluca MD Follow-up Recommendations for Providers: - Patient's symptoms were determined to be most consistent with migraine with prolonged aura. He was discharged on aspirin 81 mg daily and naproxen prn for migraines. Inpatient Provider Contact Information: For questions regarding this document or issues related to this hospitalization on the Neurology Service, please contact the author(s) of this discharge summary through the [facility] Shuttle Fitting Supervisor . Discharge Diagnoses: Aphasia possibly due to migraine with prolonged aura s/p IV thrombolysis Active Hospital Problems Diagnosis ??? CVA (cerebral vascular accident) Resolved Hospital Problems Diagnosis Date Resolved No resolved problems to display. Past medical History: No past medical history on file. Active Non Hospital Problems: Active Non-Hospital Problems Diagnosis ??? Pericardial effusion ??? Dilated cardiomyopathy ??? Acute pain of both shoulders ??? Dupuytren's disease ? ? Rotator cuff disorder bilateral (R>L) ??? 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 Condyloma ??? Osteoarthritis ??? CIS - Bilateral knee osteoarthritis ??? CIS - Bilateral knee pain ??? CIS - rotator cuff tears ??? BPH (benign prostatic hyperplasia) ??? Erectile dysfunction ??? CIS - asbestos exposure History of Presentation: Alvin Cat is a 71 y.o. right handed male with PMH of BPH who presents as a transfer from [facility] for acute onset aphasia now s/p tPA at 11:53am. ?? The patient was at his normal state of health in the waiting room a for psychology appointment at 9:30am this morning when he developed difficulty speaking. He was unable to speak normally and seemedfrustrated. He denied any weakness, numbness, tingling , or pain. He was able to walk normally and use all his limbs. A facial droop was not noted. His partner notes that he has had four similar episodes in the past which lasted 15 minutes. In these episodes he had difficulty getting words out, numbness in the face, and visual changes. He had a work up including MRI head, CUS, TTE that were unremarkable. He was seen by neurology for these episodes which were felt to be more likely migraine aura without headache. ?? The patient presented to [facility] with these symptoms. He had an NIHSS that was determined to be 4 and later was 6. BP was initially 186 but decreased to 166. He had a head CT that showed no acute intracranial process. Risks and benefits of tPA were discussed and it was determined that he had no contraindications. He received tPA at 11:53am. He was transferred to [facility] for post tPA management and consideration of interventional procedure with plans for a CTA CACO on admission. Physical Exam at Admission: Gen: Patient of apparent stated age, well nourished, well developed, awake, alert, NAD Neuro Exam: MS: AAOx4, severe receptive aphasia, fluent nonsensical speech, unable to follow commands, does notseem to understand even simple commands, no dysarthria CN: PERRL, EOMI, visual fitch intact to threat No facial asymmetry Hearing intact grossly Motor: Normal bulk and tone. Moves all four extremities against gravity, unable to perform strengthtesting due to receptive aphasia Sensation: Intact to light touch grossly throughout Reflexes: DTRs 2+ R, 2+ L Biceps 2+ R, 2+ L Brachioradialis 2+ R, 2+ L Triceps 2+ R, 2+ L Patellar Toes - R down, L down Coordination: Unable to perform heel to huerta or finger to nose due to receptive aphasia NIH stroke Scale: NIH Stroke Scale at Initial Evaluation: ?? 1.a. Level of consciousness: 0-Alert 1-Not alert, but arousable with minimal stimulation 2-Not alert, requires repeat stimulation to attend 3-Coma 1.b. Ask patient the month and their age: 0-Answers both correctly 1-Answers one correctly 2-Both incorrect 1.c. Ask patient to open and close eyes: 0-Obeys both correctly 1-Obeys one correctly 2-Both incorrect 2. Best gaze (horizontal eye movement): 0-Normal 1-Partial gaze palsy 2-Forced deviation 3. Visual field testin-No visual field loss 1-Partial hemianopia 2-Complete hemianopia 3-Bilateral hemianopia (blind including cortical blindness) 4. Facial paresis (Ask patient to show teeth or raise eyebrows and close eyes tightly): 0-Normal symmetrical movement 1-Minor paralysis (flattened nasolabial fold, asymmetry on smiling) 2-Partial paralysis (total or near paralysis of lower face) 3-Complete paralysis of one or both sides (absence of facial movement in the upper and lower face) 5. Motor function right arm: 0-Normal (extends arm 90 degrees for 10 seconds without drift) 1-Drift 2-Some effort against gravity 3-No effort against gravity 4-No movement UT-Untestable (Joint fused or limb amputated) 5. Motor function- left arm: 0-Normal (extends arm 90 degrees for 10 seconds without drift) 1-Drift 2-Some effort against gravity 3-No effort against gravity (but baseline) 4-No movement UT-Untestable (Joint fused or limb amputated) 6. Motor function right le-Normal (extends leg 30 degrees for 5 seconds without drift) 1-Drift 2-Some effort against gravity 3-No effort against gravity 4-No movement UT-Untestable (Joint fused or limb amputated) 6. Motor function-left le-Normal (extends leg 30 degrees for 5 seconds without drift) 1-Drift 2-Some effort against gravity 3-No effort against gravity 4-No movement UT-Untestable (Joint fused or limb amputated) 7. Limb ataxia: 0-No ataxia 1-Present in one limb 2-Present in two limbs 8. Sensory (Use pinprick to test arms, legs, trunk and face compare side to side): 0-Normal 1-Mild to moderate decrease in sensation 2-Severe to total sensory loss 9. Best language (describe picture, name items, read sentences): 0-No aphasia 1-Mild to moderate aphasia 2-Severe aphasia 3-Mute 10. Dysarthria (read several words): 0-Normal articulation 1-Mild to moderate slurring of words 2-Near unintelligible or unable to speak UT-Intubated or other physical barrier 11. Extinction and inattention: 0-Normal 1-Inattention or extinction to bilateral simultaneous in one of the sensory modalities 2-Severe radha-inattention or radha-inattention to more than one modality ?? TOTAL SCORE: 10 Hospital Course:: Alvin Cat is a 71 y.o. male who was admitted to the neurology service in transfer from outside hospital for further evaluation of acute onset aphasia. Neurological examination on admission was pertinent for receptive aphasia. Patient was monitored with frequent checks of vitals and neurological status. Telemetry monitoring showed normal sinus rhythm. Permissive HTN was allowed, with labetalol administered prn for BP >180/105. MRI demonstrated no acute infarction or other abnormalties. Vascular imaging showed mild atherosclerotic plaque of the aortic arch, normal carotids bilaterally, minor stenosis of the right vertebral. The left vertebral was occluded from origin with distal rec onstitution. See detailed reports as below. Most likely etiology of aphasia was Migraine with prolonged aura. # Aphasia: Thrombolytic was given prior to transfer. He was admitted to the ICU for close neurological monitoring post-tPA per protocol. All antithrombotics were held for 24 hours then he was startedon aspirin and DVT prophylaxis. Astudillo was inserted due to urinary retention and risk of repeated straight cath insertion with thrombolytics in his system. Astudillo was removed after he had cleared the 24-hour window and voiding trials instituted. Repeat head CT 24 hours post-tPA was stable. Patient was febrile day of arrival to 102.4F. He was started on acyclovir and broad antibiotics out of initialconcern for infection. Blood, urine cultures showed no signs of infection. He did not have have further fevers, given negative infectious work, antibiotics and antivirals were discontinued. EEG was obtained due to altered mental status and no frankly epileptiform features were seen. His exam improved and he had no residual aphasia or other symptoms. Patient was evaluated by rehabilitation services and deemed appropriate for home. Operations & Procedures: EEG Consultations: 1. PT/OT/SL Diagnostic Tests & Neuroimaging: Date Study Results 06/02 ECG NSR HR 88 06/02 CXR No pneumonia or other acute cardiopulmonary process. CT Head OSH 06/03 CT Head (repeat) No acute intracranial hemorrhage. No mass, mass effect, or midline shift. No extra-axial fluid collection. The ward-white matter differentiation is maintained. The basal cisterns are patent. The ventricles are unchanged. The orbits are unremarkable. The paranasal sinuses and mastoid air cells are clear. There is an unerupted left maxillary molar which partially extends into the maxillary sinus. ?? IMPRESSION No acute intracranial hemorrhage. 06/02 CTA Head and Neck There is mild atherosclerotic plaque on the arch without stenosis of the origins of great vessels. ?? Right carotid: Common carotid origin is normal. Carotid bifurcation is unremarkable. Cervical right ICA is normal in caliber. ?? Left carotid: Common carotid origin is normal. Carotid bifurcation is normal. Cervical ICA is normal in caliber. ?? Right vertebral artery: The origin is normal. Cervical vertebral artery origin is normal. There is focal stenosis of the cervical vertebral artery at the C5-C6 level due to osteophyte. There are areas of minor narrowing elsewhere to osteophyte. ?? Left vertebral artery: The proximal left ureter is occluded from its origin to the C4 level. There are areas were the foramen transversarium is narrowed by osteophyte, most prominently at the C4-C5 level. The vessel is poorly opacified at the C1-C2 level, and then reconstituted at the C1 level. ?? Intracranial circulation: Intracranial internal carotid arteries are normal in caliber. MCA, KO, and visualized branches are normal. There is relatively poor opacification of the intradural left vertebral artery. The basilar artery is normal in caliber. Posterior cerebral arteries are normal. ?? Nonvascular findings: There are extensive changes of cervical spondylosis with fusion of C2 C3-C4, and extensive uncovertebral and facet arthropathy. There is at least moderate central canal narrowing at C5-C6. There is a lucent lesion in the left mandible measuring approximately 2 cm adjacent to the previous study on unerupted tooth. This area is partially described motion artifact. ?? IMPRESSION 1. 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 No intracranial occlusion or severe stenosis. 2. Extensive changes of cervical spondylosis. 3. Incidental 2 cm lucent lesion in the left mandible, which appears to contain an unerupted tooth. This may represent a dentigerous cyst. Repeat CT of the face without contrast to be considered when clinically appropriate for better evaluation. MRI BRAIN IMPRESSION No evidence for recent infarction, hemorrhage or encephalitis. Labs: Lipid Panel Lab Results Component Value Date CHLPL 170 06/02/2017 HDL 69 06/02/2017 CHOLHDL 2.5 06/02/2017 TRIG 92 12/26/2011 LDLCHOL 62 12/26/2011 LDLDIRECT 92 06/02/2017 Lab Results Component Value Date HA1C 4.6 06/03/2017 Last 3 Lytes Recent Labs 06/04/17 0502 06/03/17 0205 06/02/17 1625 NA 140 142 141 K 3.9 3.2* 4.2 CL 107 108* 100 CO2 21* 21* 21* BUN 12 11 16 CREATININE 1.03 0.98 1.16 Last 3 LFTs Recent Labs 06/02/17 1625 06/02/17 1435 AST 21 Not Perf ALT 9 Not Perf ALKPHOS 62 Not Perf BILITOT 0.8 0.8 BILIDIR 0.2 Not Perf Last Ca, Mg, Phos Recent Labs 06/04/17 0502 CALCIUM 8.2* Last 3 Coags No results for input(s): PT, INR, PTT in the last 168 hours. Last 3 CBC Recent Labs 06/04/17 0502 06/03/17 0205 06/02/17 1435 WBC 5.3 8.6 7.9 Pending Studies and Lab Data: The patient will need the following test completed on: 06/02/2017 1. Echocardiogram Transthoracic(Leb) Diagnosis: Cerebrovascular accident (CVA), unspecified mechanism (I63.9) Authorizing Provider: Kristina Delong MD Vital Signs at Discharge: BP: 162/84 (RN aware), Heart Rate: 59, Temp: 37 ??C (98.6 ??F), Resp: 16, Height: 177.8 cm (5' 10) (06/02/17 1415) Weight - Scale: 78.1 kg (172 lb 3.2 oz) (06/02/17 1400) Functional and Cognitive Status: Aphasia, now resolved Physical Exam at Discharge: Vitals: Temp: [36.9 ??C (98.4 ??F)-38.3 ??C (100.9 ??F)] Heart Rate: [60-97] Resp: [13-25] BP: (109-181)/(43-92) SpO2: [95 %-100 %] Heart Rate from SPO2: [59 bpm-94 bpm] Gen: Patient of apparent stated age, well nourished, well developed, awake, alert, NAD Ext: No edema. No bony deformity Neuro Exam: MS: AAOx4, aphasia improved, able to follow commands CN: ?PERRL, EOMI, visual fitch intact to threat ?No facial asymmetry ?Hearing intact grossly Motor: ?Normal bulk and tone. 5/5 strength throughout bilateral upper and lower extremities Sensation: Intact to light touch??grossly throughout Reflexes: ?DTRs ?2+ R, 2+ L ??Biceps ?2+ R, 2+ L ??Brachioradialis ?2+ R, 2+ L ??Triceps ?2+ R, 2+ L ??Patellar ?Toes - R down, L down? Coordination: intact finger to nose testing Discharge Conditions/Prognosis: Aphasia, now resolved Discharge to: Home Updated Allergies/ADRs: Allergies Allergen Reactions ??? Penicillins Other (See Comments) Unknown. Per patient partner, she does not believe this is true anaphylactic reaction. Immunizations Given this Hospitalization: Immunization History Administered Date(s) Administered ??? Influenza Vaccine, Whole 02/28/2010 Discharge Medications: Your Medications New Medications Dose Details amitriptyline 10 mg Tab Commonly known as: ELAVIL Take 1 tablet by mouth nightly. 10 mg Quantity: 30 tablet Refills: 3 aspirin 81 mg Chew Take 81 mg by mouth daily. Start taking on: 06/05/2017 81 mg Quantity: 30 tablet Refills: 3 naproxen 500 mg Tab Commonly known as: NAPROSYN Take 1 tablet by mouth 2 times daily as needed. 500 mg Quantity: 60 tablet Refills: 12 Continued medications, unchanged Dose Details acetaminophen 500 mg Tab Commonly known as: TYLENOL Take 1,000 mg by mouth 2 times daily. 1000 mg Refills: 0 CURCUMIN MISC by Misc.(Non-Drug; Combo Route) route. Refills: 0 diphenhydrAMINE 25 mg Cap Commonly known as: BENADRYL Take 25 mg by mouth nightly as needed for Sleep. 25 mg Refills: 0 ibuprofen 200 mg Tab Commonly known as: ADVIL;MOTRIN Take 200 mg by mouth every 6 hours as needed for Pain. 200 mg Refills: 0 sildenafil 100 mg Tab Commonly known as: VIAGRA Take 100 mg by mouth as needed. 25 mg - 50 mg prn 100 mg Refills: 0 traMADol 50 mg Tab Commonly known as: ULTRAM Take 50 mg by mouth nightly. 50 mg Refills: 0 valACYclovir 1 gram Tab Commonly known as: VALTREX take 2 tablets by mouth prn Refills: 0 STOPPED Medications naproxen sodium 220 mg Cap Commonly known as: ALEVE Smoking Status at Discharge: History Smoking Status ??? Former Smoker ??? Quit date: 03/13/1981 SECONDARY STROKE PREVENTION: Preventative measure Antithrombotic agent for stroke prevention (aspirin,clopidogrel, ticagrelor, therapeutic anticoagulation etc...) was Initiated. If documented history of atrial fibrillation/flutter, anticoagulation therapy was not prescribed due to no documented atrial fibrillation for stroke prevention. Cholesterol-lowering medication (including statins) was not prescribed due to no evidence of stroke, normal LDL Smoking cessation: If patient smoked within the past year, smoking cessation counseling was not performed due to patient non-smoker. Nicotine supplements were NA. Education: Stroke information packet provided to patient and/or family, which included personal modifiable risk factors for stroke, stroke warning signs and symptoms, how to activate EMS for stroke, and need for follow-up after discharge was performed. Modified Jaswant Score (MRS) on discharge Score Description 0 No symptoms at all 1 No significant disability despite symptoms; able to carry out all usual duties and activities 2 Slight disability; unable to carry out all previous activities, but able to look after own affairs without assistance 3 Moderate disability; requiring some help, but able to walk without assistance 4 Moderately severe disability; unable to walk without assistance 5 Severe disability; bedridden, incontinent and requiring constant nursing care and attention 6 Total Score: 0 NIH Stroke Scale at Discharge Evaluation: 1.a. Level of consciousness: 0-Alert 1-Not alert, but arousable with minimal stimulation 2-Not alert, requires repeat stimulation to attend 3-Coma 1.b. Ask patient the month and their age: 0-Answers both correctly 1-Answers one correctly 2-Both incorrect 1.c. Ask patient to open and close eyes: 0-Obeys both correctly 1-Obeys one correctly 2-Both incorrect 2. Best gaze (horizontal eye movement): 0-Normal 1-Partial gaze palsy 2-Forced deviation 3. Visual field testin-No visual field loss 1-Partial hemianopia 2-Complete hemianopia 3-Bilateral hemianopia (blind including cortical blindness) 4. Facial paresis (Ask patient to show teeth or raise eyebrows and close eyes tightly): 0-Normal symmetrical movement 1-Minor paralysis (flattened nasolabial fold, asymmetry on smiling) 2-Partial paralysis (total or near paralysis of lower face) 3-Complete paralysis of one or both sides (absence of facial movement in the upper and lower face) 5. Motor function right arm: 0-Normal (extends arm 90 degrees for 10 seconds without drift) 1-Drift 2-Some effort against gravity 3-No effort against gravity 4-No movement 9-Untestable (Joint fused or limb amputated) 5. Motor function- left arm: 0-Normal (extends arm 90 degrees for 10 seconds without drift) 1-Drift 2-Some effort against gravity 3-No effort against gravity 4-No movement 9-Untestable (Joint fused or limb amputated) 6. Motor function right le-Normal (extends leg 30 degrees for 5 seconds without drift) 1-Drift 2-Some effort against gravity 3-No effort against gravity 4-No movement 9-Untestable (Joint fused or limb amputated) 6. Motor function-left le-Normal (extends leg 30 degrees for 5 seconds without drift) 1-Drift 2-Some effort against gravity 3-No effort against gravity 4-No movement 9-Untestable (Joint fused or limb amputated) 7. Limb ataxia: 0-No ataxia 1-Present in one limb 2-Present in two limbs 8. Sensory (Use pinprick to test arms, legs, trunk and face compare side to side): 0-Normal 1-Mild to moderate decrease in sensation 2-Severe to total sensory loss 9. Best language (describe picture, name items, read sentences): 0-No aphasia 1-Mild to moderate aphasia 2-Severe aphasia 3-Mute 10. Dysarthria (read several words): 0-Normal articulation 1-Mild to moderate slurring of words 2-Near unintelligible or unable to speak 9-Intubated or other physical barrier 11. Extinction and inattention: 0-Normal 1-Inattention or extinction to bilateral simultaneous in one of the sensory modalities 2-Severe radha-inattention or radha-inattention to more than one modality TOTAL SCORE: 0 Instructions Given to Patient at Discharge: Patient Instructions You were admitted to the neurology service at [facility]. Your diagnosis: aphasia due to migraine with prolonged aura Medication Changes: Naproxen 500 mg as needed twice daily for migraines Aspirin 81 mg daily Amitriptyline (elavil) 10 mg nightly Patient Instructions: ??? Call your doctor or seek medical attention if you have ??? weakness or numbness in your face or one of your limbs or difficulty speaking ??? loss of vision ??? seizures or loss of consciousness ??? Diet: we recommend a heart healthy diet: low fat, low cholesterol, low concentrated sweets. ??? Activity Restrictions: no new restrictions ??? Driving Restrictions: No driving for two weeks, okay to drive afterwards if no further issues ??? Home oxygen therapy: none needed ??? Anticoagulation Follow-up and Instructions: none FOLLOWUP APPOINTMENT: You will have an outpatient followup appointment in the neurology clinic at [facility]. If not already listed in this document, we will contact you to schedule this appointment. -- If 1 week passes by after you are discharged and you still do not have an appointment, please call [phone]. Future Appointments and Orders Future Appointments Provider Department Dept Phone 06/18/2017 9:00 AM Priti Lilly APRN [facility] [place] [phone] 06/18/2017 9:50 AM [facility] DX ROOM 2 [facility] [place] [phone] Please go to [facility] ([place] Location). 06/18/2017 10:[address] [facility] [place] [phone] 07/02/2017 1:00 PM Washington Deluca MD [facility] [place] [phone] General Instructions None Future Appointments and Orders Future Appointments Provider Department Dept Phone 06/18/2017 9:00 AM Priti Lilly APRN [facility] [place] [phone] 06/18/2017 9:50 AM [facility] DX ROOM 2 [facility] [place] [phone] Please go to [facility] ([place] Location). 06/18/2017 10:[address] [facility] [place] [phone] 07/02/2017 1:00 PM Washington Deluca MD [facility] [place] [phone] Primary Care Provider: Diana Weaver MD [place] [id number] / [facility] [id number] Discharge References/Attachments None documented in this encounter Discharge Instructions * Patient Instructions* Andrew De La O MD - 06/04/2017 11:53 AM EST You were admitted to the neurology service at [facility]. Your diagnosis: aphasia due to migraine with prolonged aura Medication Changes: Naproxen 500 mg as needed twice daily for migraines Aspirin 81 mg daily Amitriptyline (elavil) 10 mg nightly Patient Instructions: ??? Call your doctor or seek medical attention if you have ??? weakness or numbness in your face or one of your limbs or difficulty speaking ??? loss of vision ??? seizures or loss of consciousness ??? Diet: we recommend a heart healthy diet: low fat, low cholesterol, low concentrated sweets. ??? Activity Restrictions: no new restrictions ??? Driving Restrictions: No driving for two weeks, okay to drive afterwards if no further issues ??? Home oxygen therapy: none needed ??? Anticoagulation Follow-up and Instructions: none FOLLOWUP APPOINTMENT: You will have an outpatient followup appointment in the neurology clinic at [facility]. If not already listed in this document, we will contact you to schedule this appointment. -- If 1 week passes by after you are discharged and you still do not have an appointment, please call [phone]. Future Appointments and Orders Future Appointments Provider Department Dept Phone 06/18/2017 9:00 AM Priti Lilly APRN [facility] [place] [phone] 06/18/2017 9:50 AM [facility] DX ROOM 2 [facility] [place] [phone] Please go to [facility] ([facility] Location). 06/18/2017 10:[address] [facility] [place] [phone] 07/02/2017 1:00 PM Washington Deluca MD [facility] [place] [phone] documented in this encounter Medications at Time of Discharge [...] mouth twice a day 0 05/15/2017 06/18/2017 aspirin 81 mg Tablet, Chewable Take 81 mg by mouth daily. 30 tablet 3 06/05/2017 04/28/2018 naproxen (NAPROSYN) 500 mg Tablet Take 1 tablet by mouth 2 times daily as needed. 60 tablet 12 06/04/2017 10/29/2018 amitriptyline (ELAVIL) 10 mg Tablet Take 1 tablet by mouth nightly. 30 tablet 3 06/04/2017 07/02/2017 diphenhydrAMINE (BENADRYL) 25 mg Capsule Take 25 mg by mouth nightly as needed for Sleep. 06/09/2017 ibuprofen (ADVIL;MOTRIN) 200 mg Tablet Take 200 mg by mouth every 6 hours as needed for Pain. 06/09/2017 traMADol (ULTRAM) 50 mg Tablet Take 50 mg by mouth nightly. 0 01/19/2016 06/18/2017 acetaminophen (TYLENOL) 500 mg tablet Take 1,000 mg by mouth 2 times daily. 01/10/2011 06/18/2017 documented as of this encounter Progress Notes * Ed Grimm RN - 06/04/2017 12:52 PM EST Alvin Cat discharged to home by private car with family. All belongings sent with patient. RAJNI removed, skin free from pressure ulcers. Discharge instructions, medications, and follow-up appointments reviewed, education provided on new meds, all questions answered. Patient instructed to call with concerns. D/C telle note SR, HR 60-80 No events * Valerie Mesa RN - 06/04/2017 7:15 AM EST Cardiac/Telemetry Nursing Progress Note [id number] Subjective: No events overnight. Sinus rhythm. Rare PVCs. MI- 0.15, QRS- 0.11, RR-0.96, QT- 0.40, QTc- 0.41 Objective: Vital Signs: See Vital signs below Cardiac Meds: See online MAR Labs: See labs in online chart. Assessment: No signs and symptoms of chest pain. Patient asymptomatic overnight. Plan: Continue telemetry monitoring. Notify MD of any changes. See Attached Tele Strip. (in green paper chart). Last value Range last 12 hrs Temperature Temp: 36.6 ??C (97.9 ??F) Temp: [36.6 ??C (97.9 ??F)] Heart Rate Heart Rate: 69 Heart Rate: [69] Blood Pressure BP: 145/72 BP: (128-149)/(70-72) Respiratory Rate Resp: 16 Resp: [16-18] SpO2 SpO2: 98 % SpO2: [98 %] * Shira Valencia MD - 06/04/2017 6:38 AM EST Neurology Progress Note Patient Name: Alvin Cat Admit Date: 06/02/2017 Attending: Dr. Deluca Patient ID: Alvin Cat is a 71 y.o. right handed male with PMH of BPH who presented as a transfer from [facility] for acute onset aphasia now s/p tPA at 11:53am on 06/02/2017. After arrival he became febrile, infectious workup was commenced and antimicrobial coverage started with acyclovir, ceftriaxone, vancomycin. Now he is only getting acyclovir, as the other antimicrobials were discontinued. EEG revealed multifocal dysfunction with superimposed left fronto-temporal dysfunction without epileptiform activity. His initial aphasia is now improved and he is following commands. Interval History: He has had a few elevated SBPs overnight to 150-160s. He has been afebrile, has not required PRNs overnight He has no complaints for me this am Medications: Scheduled Meds: ??? enoxaparin 40 mg Subcutaneous Daily ??? aspirin 81 mg Oral Daily ??? sodium chloride 0.9 % 5 mL Intravenous Q12H ??? docusate sodium 100 mg Oral BID ??? acyclovir 725 mg Intravenous Q8H Continuous Infusions: ??? niCARdipine ??? sodium chloride 0.9% 100 mL/hr (06/03/17 1246) PRN Meds:.flu vacc (65 yrs+) (PF), sodium chloride 0.9 %, lidocaine, labetalol, enalaprilat, niCARdipine AND Vital signs Q4H AND Cardiac Monitoring, bisacodyl, magnesium hydroxide, acetaminophen OR acetaminophen OR acetaminophen Physical Exam: Vitals: Temp: [36.9 ??C (98.4 ??F)-38.3 ??C (100.9 ??F)] Heart Rate: [60-97] Resp: [13-25] BP: (109-181)/(43-92) SpO2: [95 %-100 %] Heart Rate from SPO2: [59 bpm-94 bpm] Gen: Patient of apparent stated age, well nourished, well developed, awake, alert, NAD Ext: No edema. No bony deformity Neuro Exam: MS: AAOx4, aphasia improved, able to follow commands CN: PERRL, EOMI, visual fitch intact to threat No facial asymmetry Hearing intact grossly Motor: Normal bulk and tone. 5/5 strength throughout bilateral upper and lower extremities Sensation: Intact to light touch grossly throughout Reflexes: DTRs 2+ R, 2+ L Biceps 2+ R, 2+ L Brachioradialis 2+ R, 2+ L Triceps 2+ R, 2+ L Patellar Toes - R down, L down Coordination: intact finger to nose testing Labs: Recent Results (from the past 24 hour(s)) Hemoglobin A1c Result Value Ref Range Hemoglobin A1C 4.6 4.3 - 5.6 % Est Avg Gluc See note mg/dL Basic Metabolic Panel (non-fasting) Result Value Ref Range Glucose Lvl 94 65 - 199 mg/dL BUN 11 10 - 20 mg/dL Creatinine 0.98 0.80 - 1.50 mg/dL Sodium 142 135 - 145 mmol/L Potassium 3.2 (L) 3.5 - 5.0 mmol/L Chloride 108 (H) 98 - 107 mmol/L CO2 21 (L) 22 - 31 mmol/L Anion Gap 13 5 - 15 mmol/L Calcium 7.2 (L) 8.5 - 10.5 mg/dL Estimated GFR >60 >=60 Hemogram Result Value Ref Range WBC 8.6 4.0 - 9.5 x10(3)/mcL RBC 4.08 (L) 4.58 - 5.54 x10(6)/mcL Hemoglobin 12.8 (L) 13.7 - 16.5 gm/dL Hematocrit 37.8 (L) 40.5 - 48.5 % MCV 92.6 82.9 - 93.1 fL MCH 31.4 27.5 - 32.1 pg MCHC 33.9 32.0 - 35.7 gm/dL Platelets 260 145 - 357 x10(3)/mcL RDWSD 44.0 36.0 - 45.0 fL RDWCV 13.0 11.4 - 13.8 % MPV 9.4 7.6 - 12.9 fL nRBC % Auto 0.0 % nRBC Abs Auto 0.000 0.000 - 0.000 x10(3)/mcL Differential, Automated Result Value Ref Range Neutrophils % 70.9 % Neutr Abs (ANC) 6.10 1.70 - 6.10 x10(3)/mcL Lymphocytes % 18.4 % Lymphocytes Abs 1.6 0.9 - 3.2 x10(3)/mcL Monocytes % 9.7 % Monocyte Abs 0.8 0.3 - 0.9 x10(3)/mcL Eosinophils % 0.3 % Eosinophils Abs 0.0 0.0 - 0.4 x10(3)/mcL Basophils % 0.5 % Basophils Abs 0.0 0.0 - 0.1 x10(3)/mcL Immature Gran % 0.20 % Vianca Gran Abs 0.02 0.00 - 0.04 x10(3)/mcL Consults, Diagnostic Tests, and Imaging: Head CT w/out: obtained prior to admission at [facility]: no acute intracranial processes ?? CTA CACO: no focal area of stenosis or occlusion in the head and neck vasculature ? Assessment and Plan: Alvin Cat is a 71 y.o. right handed male with PMH of BPH who presented as a transfer from [facility] for acute onset aphasia now s/p tPA at 11:53am. On exam the patient had severe receptive aphasiabut no other focal neurological deficits. The symptoms localize to the inferior division of the left MCA. Possible etiologies include cardioembolic or atheroembolic. CT CACO does not show a occlusionthat could account for these symptoms. Therefore, another possibility is that the symptoms are related to migraine aura which he has experienced in the past. He has now had fevers so infectious etiology causing encephalitis is also possible. Seizures and post ictal state is another possibility. He has been stable overnight. ? # Aphasia -Admit to neurology, floor level of care -Neuro check & vitals per post tPA protocol were completed -Permissive HTN, treat SBP >180/105 with prn labetalol, enalaprilat, nicardipine drip (no longerrunning) - Hold antiplatelets for first 24 hours post tPA -Check CBC, BMP, LFT, lipid profile, HbA1c, Mg, Phos, - Blood cultures, urine cultures obtained for infectious work up, continue acyclovir for now - LDL = 92, consider statin -TTE -12 lead EKG -Telemetry -MRI brain wo contrast -CTA head & neck completed - EEG completed -PT/OT/G[employer] LEAF PRINTER ?? # Prophylaxis - No DVT prophylaxis first 24 hours post tPA -RBOs -SCDs ?? # Supportive care - G[employer] LEAF PRINTER to evaluate for help determining appropriate diet -Tylenol PRN -Up with assistance ?? # FULL code ? Shira Valencia MD PGY2-Neurology Personal Pager #[phone] Vascular Neurology #[phone] Associated attestation - Washington Deluca MD - 06/05/2017 12:21 AM EST Neurology Staff Note I have reviewed the resident's history during the visit and I agree with the details as written. Myphysical examination confirms the resident's findings. The assessment and plan were formulated in discussion with me at the time of the visit and I agree with them as documented. Doing very well, ready for discharge to home. MRI reviewed. * Bibi Terrazas RN - 06/03/2017 7:03 PM EST Alvin Cat arrived to 511A @ 1850 from ICU 4S. Oriented to room, call miller within reach, educated on importance of using prior to getting OOB, AVSS, belongings updated in eDH, bed locked in low position, purposeful hourly rounding, bed/chair alarm on. * Allyson Valencia RCP - 06/03/2017 6:23 PM EST 06/03/17 1800 Oxygen Therapy O2 Device RA SpO2 97 % Resp 25 pt on room air maintaining sat. Pt has no treatments ordered at this time Will continue to monitor pt * Dm Fenton MD - 06/03/2017 10:47 AM EST STAFF PROGRESS NOTE Critical Care Medicine Author: DM FENTON MD Patient seen and examined on critical care rounds. Alvin Cat is a 71 y.o. male with the following active issues:: Stroke ASSESSMENT, MANAGEMENT, and DECISION MAKING: Neuro: aphasia improved s/p TPA, continue Q1 neuro checks Hemodynamics: stable BP Pulmonary: satisfactory saturation on RA GI: advance diet Renal: stable ID: fevers resolved, plan for MRI to look for evidence of stroke or intracranial infection and may be able to stop antibiotics following EXAM: Physical Exam Awake, alert, speech fluent, able to name simple objects Lungs: clear anteriorly Heart: RRR Abdomen: soft Last value Range last 24 hrs Temperature Temp: 37 ??C (98.6 ??F) Temp: [36.9 ??C (98.4 ??F)-39.1 ??C (102.4 ??F)] Heart Rate Heart Rate: 60 Heart Rate: [60-106] Blood Pressure BP: 150/76 BP: (109-189)/(43-107) Respiratory Rate Resp: 15 Resp: [13-26] SpO2 SpO2: 98 % SpO2: [95 %-100 %] Art BP BP (Arterial Line): -- Last Ht 06/02/17 177.8 cm (5' 10) Last Wt 06/02/17 78.1 kg (172 lb 3.2 oz) Body mass index is 24.71 kg/(m^2). IS PATIENT CRITICALLY ILL ? Is there a high potential of sudden, clinically significant, or life threatening deterioration? No Is there a need for direct personal assessment and management to treat/prevent multiple vital organfailure/deterioration? No DM FENTON MD 06/03/2017 * Prior, Andrew Richter MD - 06/03/2017 6:10 AM EST Neurology Progress Note Patient Name: Alvin Cat Admit Date: 06/02/2017 Attending: Dr. Deluca Patient ID: Alvin Cat is a 71 y.o. right handed male with PMH of BPH who presented as a transfer from [facility] for acute onset aphasia now s/p tPA at 11:53am on 06/02/2017. Interval History: - Patient spiked fevers to 39 C shortly after arrival, blood cultures, urinalysis obtained, startedon broad spectrum infectious coverage with acyclovir, ceftriaxone, vancomycin - EEG completed consistent with marked diffuse or multifocal dysfunction, with superimposed left fronto-temporal dysfunction. This latter observation may reflect an underlying structural abnormality or post-ictal slowing. No frankly epileptiform features are seen. - Patient's aphasia has largely improved, now able to follow commands more consistently though sometimes speech is nonsensical Medications: Scheduled Meds: ??? sodium chloride 0.9 % 5 mL Intravenous Q12H ??? docusate sodium 100 mg Oral BID ??? cefTRIAXone 2 g Intravenous Q12H ??? ampicillin 2 g Intravenous Q4H ??? acyclovir 725 mg Intravenous Q8H ??? [START ON 06/03/2017] vancomycin 1.5 g Intravenous Q18H Continuous Infusions: ??? niCARdipine ??? sodium chloride 0.9% 100 mL/hr (06/02/17 1633) PRN Meds:.sodium chloride 0.9 %, lidocaine, labetalol, enalaprilat, niCARdipine AND Vital [id number] AND Cardiac Monitoring, bisacodyl, magnesium hydroxide, acetaminophen OR acetaminophen OR acetaminophen, [DISCONTINUED] vancomycin AND Vancomycin, trough AND Vancomycin Level - MAR Order Reminder Physical Exam: Vitals: Temp: [37.2 ??C (99 ??F)-39.1 ??C (102.4 ??F)] Heart Rate: [73-106] Resp: [13-26] BP: (129-189)/(43-107) SpO2: [95 %-100 %] Heart Rate from SPO2: [71 bpm-97 bpm] Gen: Patient of apparent stated age, well nourished, well developed, awake, alert, NAD Ext: No edema. No bony deformity Neuro Exam: MS: AAOx4, aphasia improved, now able to follow commands, but speech is still sometimes nonsensical, gargled, no dysarthria CN: PERRL, EOMI, visual ftich intact to threat No facial asymmetry Hearing intact grossly Motor: Normal bulk and tone. 5/5 strength throughout bilateral upper and lower extremities Sensation: Intact to light touch grossly throughout Reflexes: DTRs 2+ R, 2+ L Biceps 2+ R, 2+ L Brachioradialis 2+ R, 2+ L Triceps 2+ R, 2+ L Patellar Toes - R down, L down Coordination: intact finger to nose testing Labs: Recent Results (from the past 24 hour(s)) Basic Metabolic Panel (non-fasting) Result Value Ref Range Glucose Lvl 119 65 - 199 mg/dL BUN 15 10 - 20 mg/dL Creatinine 1.22 0.80 - 1.50 mg/dL Sodium Not Perf 135 - 145 mmol/L Potassium Not Perf 3.5 - 5.0 mmol/L Chloride Not Perf 98 - 107 mmol/L CO2 20 (L) 22 - 31 mmol/L Anion Gap Unable to Calculate 5 - 15 mmol/L Calcium 8.7 8.5 - 10.5 mg/dL Estimated GFR 59 (L) >=60 Hepatic Function Panel Result Value Ref Range Total Protein Not Perf 6.1 - 8.0 Albumin 4.2 3.2 - 5.2 gm/dL AST Not Perf 0 - 39 unit/L ALT Not Perf 0 - 55 Alk Phos Not Perf 40 - 120 Total Bilirubin 0.8 0.2 - 1.3 mg/dL Bili, Direct Not Perf 0.0 - 0.3 mg/dL HDL/Cholesterol Profile Result Value Ref Range Chol, Total 170 <=239 mg/dL HDL 69 >=40 mg/dL Chol/HDL Ratio 2.5 ratio Chol/HDL Interpretation See Note LDL Cholesterol, Direct Result Value Ref Range LDL Chol Direct 92 <=190 mg/dL Hemogram Result Value Ref Range WBC 7.9 4.0 - 9.5 x10(3)/mcL RBC 4.48 (L) 4.58 - 5.54 x10(6)/mcL Hemoglobin 14.7 13.7 - 16.5 gm/dL Hematocrit 40.4 (L) 40.5 - 48.5 % MCV 90.2 82.9 - 93.1 fL MCH 32.8 (H) 27.5 - 32.1 pg MCHC 36.4 (H) 32.0 - 35.7 gm/dL Platelets 308 145 - 357 x10(3)/mcL RDWSD 42.7 36.0 - 45.0 fL RDWCV 13.0 11.4 - 13.8 % MPV 10.7 7.6 - 12.9 fL nRBC % Auto 0.0 % nRBC Abs Auto 0.000 0.000 - 0.000 x10(3)/mcL Differential, Automated Result Value Ref Range Neutrophils % 83.4 % Neutr Abs (ANC) 6.63 (H) 1.70 - 6.10 x10(3)/mcL Lymphocytes % 9.2 % Lymphocytes Abs 0.7 (L) 0.9 - 3.2 x10(3)/mcL Monocytes % 5.7 % Monocyte Abs 0.4 0.3 - 0.9 x10(3)/mcL Eosinophils % 0.8 % Eosinophils Abs 0.1 0.0 - 0.4 x10(3)/mcL Basophils % 0.6 % Basophils Abs 0.0 0.0 - 0.1 x10(3)/mcL Immature Gran % 0.30 % Vianca Gran Abs 0.02 0.00 - 0.04 x10(3)/mcL Basic Metabolic Panel (non-fasting) Result Value Ref Range Glucose Lvl 106 65 - 199 mg/dL BUN 16 10 - 20 mg/dL Creatinine 1.16 0.80 - 1.50 mg/dL Sodium 141 135 - 145 mmol/L Potassium 4.2 3.5 - 5.0 mmol/L Chloride 100 98 - 107 mmol/L CO2 21 (L) 22 - 31 mmol/L Anion Gap 20 (H) 5 - 15 mmol/L Calcium 9.4 8.5 - 10.5 mg/dL Estimated GFR >60 >=60 Hepatic Function Panel Result Value Ref Range Total Protein 7.2 6.1 - 8.0 gm/dL Albumin 4.3 3.2 - 5.2 gm/dL AST 21 0 - 39 unit/L ALT 9 0 - 55 unit/L Alk Phos 62 40 - 120 unit/L Total Bilirubin 0.8 0.2 - 1.3 mg/dL Bili, Direct 0.2 0.0 - 0.3 mg/dL Antibody screen Result Value Ref Range Ab Screen Interp Negative Expires at 2359 on: 06/05/2017 ABORH Recheck Status Result Value Ref Range ABORH Type Recheck Completed ABORh Type Manual Result Value Ref Range Expires at 2359 on: 06/05/2017 ABORh Type B Pos ABORH Recheck Status Result Value Ref Range ABORH Type Recheck Completed Urinalysis with reflex Culture Result Value Ref Range Glucose UA Negative Negative mg/dL Protein UA Negative Negative mg/dL Bilirubin UA Negative Negative mg/dL Urobilinogen UA Normal Normal mg/dL pH UA 7.0 5.0 - 8.0 Blood UA Small (A) Negative mg/dL Ketones UA 5 (A) Negative mg/dL Nitrite UA Negative Negative Leukocytes UA Negative Negative mcL Appearance UA Clear Clear Spec Murphy UA 1.026 1.002 - 1.030 Color UA Yellow Yellow Culture Reflexed No Urinalysis Microscopic Exam Result Value Ref Range RBC UA 1 0 - 3 /HPF WBC UA 1 0 - 3 /HPF Squam Epith UA <1 <=4 /HPF Consults, Diagnostic Tests, and Imaging: Head CT w/out: obtained prior to admission at [facility]: no acute intracranial processes ?? CTA CACO: no focal area of stenosis or occlusion in the head and neck vasculature ? Assessment and Plan: Alvin Cat is a 71 y.o. right handed male with PMH of BPH who presented as a transfer from [facility] for acute onset aphasia now s/p tPA at 11:53am. On exam the patient had severe receptive aphasiabut no other focal neurological deficits. The symptoms localize to the inferior division of the left MCA. Possible etiologies include cardioembolic or atheroembolic. CT CACO does not show a occlusionthat could account for these symptoms. Therefore, another possibility is that the symptoms are related to migraine aura which he has experienced in the past. He has now had fevers so infectious etiology causing encephalitis is also possible. Seizures and post ictal state is another possibility. ? # Aphasia -Admit to neurology, ICU level of care -Neuro check & vitals per post tPA protocol: every 15 minutes X 2 hours, then every 30 minutes x 6 hours, then every hour for 24 hours post infusion, then every 2 hours afterwards -Permissive HTN, treat SBP >180/105 with prn labetalol, enalaprilat, nicardipine drip - Hold antiplatelets for first 24 hours post tPA -Check CBC, BMP, LFT, lipid profile, HbA1c, Mg, Phos, - Blood cultures, urine cultures obtained for infectious work up, continue broad spectrum infectious coverage for now - LDL = 92, consider statin -TTE -12 lead EKG -Telemetry -MRI brain wo contrast -CTA head & neck completed - EEG completed -PT/OT/GOLD LEAF PRINTER ?? # Prophylaxis - No DVT prophylaxis first 24 hours post tPA -RBOs -SCDs ?? # Supportive care - G[employer] LEAF PRINTER to evaluate for help determining appropriate diet -Tylenol PRN -Up with assistance ?? # FULL code ? Andrew De La O MD PGY-3 Vascular Neurology Pager [phone] Associated attestation - Washington Deluca MD - 06/03/2017 7:01 PM EST Neurology Staff Note I have reviewed the resident's history during the visit and I agree with the details as written. Myphysical examination confirms the resident's findings. The assessment and plan were formulated in discussion with me at the time of the visit and I agree with them as documented. Dramatic near-resolution of aphasia. He can now tell us he had a bad headache (bi-frontal) whout nausea or + visual phenomena yesterday while aphasic but he and is SO report that he thought a sign about diabetes was blurry and he had troubles reading part of it immediately before going into the appt and then having symptoms. I suspect this might be a prolonged aura but I cannot explain the initial fever and he still has some SLIGHT difficulties with his speech so I think it is prudent to continue the antiviral and await the MRI. Trying to expedite the imaging which is delayed due to a backlog currently. * Allyson Valencia RCP - 06/02/2017 5:09 PM EST 06/02/17 1532 Oxygen Therapy O2 Device RA SpO2 99 % Resp 21 pt on room air maintaining sat. Pt has no treatments ordered at this time Will continue to monitor pt 06/02 ct IMPRESSION 1. 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 No intracranial occlusion or severe stenosis. 2. Extensive changes of cervical spondylosis. 3. Incidental 2 cm lucent lesion in the left mandible, which appears to contain an unerupted tooth. This may represent a dentigerous cyst. Repeat CT of the face without contrast to be considered when clinically appropriate for better evaluation documented in this encounter H&P Notes * Andrew De La O MD - 06/02/2017 1:33 PM EST Neurology Admission History and Physical Patient name: Alvin Cat Date of : 1945 PCP: Diana Weaver MD Onset of symptoms (if witnessed): 9:30AM Last known well: 9:30AM Stroke Alert Activated: not activated Neurology at Bedside: 13:35 Was IV tPA given greater than 60 minutes after time of hospital arrival: No ADMINISTERED PRIOR TO ADMISSION 11:53-13:14 CC: aphasia HPI: Alvin Cat is a 71 y.o. right handed male with PMH of BPH who presents as a transfer from [facility] for acute onset aphasia now s/p tPA at 11:53am. The patient was at his normal state of health in the waiting room a for psychology appointment at 9:30am this morning when he developed difficulty speaking. He was unable to speak normally and seemedfrustrated. He denied any weakness, numbness, tingling , or pain. He was able to walk normally and use all his limbs. A facial droop was not noted. His partner notes that he has had four similar episodes in the past which lasted 15 minutes. In these episodes he had difficulty getting words out, numbness in the face, and visual changes. He had a work up including MRI head, CUS, TTE that were unremarkable. He was seen by neurology for these episodes which were felt to be more likely migraine aura without headache. The patient presented to [facility] with these symptoms. He had an NIHSS that was determined to be 4 and later was 6. BP was initially 186 but decreased to 166. He had a head CT that showed no acute intracranial process. Risks and benefits of tPA were discussed and it was determined that he had no contraindications. He received tPA at 11:53am. He was transferred to [facility] for post tPA management and consideration of interventional procedure with plans for a CTA CACO on admission. Current Medications: Scheduled Meds: none Continuous Infusions: IVF PRN Meds:. Labetalol, enalapril Past Medical & Surgical History: No past medical history on file. Past Surgical History: Procedure Laterality Date ??? CREATED BY INTERFACE arthroscopic knee surgeries x3 Procedure Date: 2004 ??? CREATED BY INTERFACE Entered not Verified Procedure Date: 04/24/2010 ??? CREATED BY INTERFACE hernia repair Procedure Date: 1982 ??? CREATED BY INTERFACE pilonidal cyst removal Procedure Date: 1977 ??? PRO LAP, INGUINAL HERNIA REPR, INITIAL 08/16/2013 LAPAROSCOPIC HERNIA REPAIR, INGUINAL INGUINAL- MAYRA performed by Renzo Velasquez MD at [facility] MAIN OR Home Medications: No current facility-administered medications on file prior to encounter. Current Outpatient Prescriptions on File Prior to Encounter Medication Sig Dispense Refill ??? diphenhydrAMINE (BENADRYL) 25 mg Capsule Take 25 mg by mouth every 6 hours as needed for Itching. ??? ibuprofen (ADVIL;MOTRIN) 200 mg Tablet Take 200 mg by mouth every 6 hours as needed for Pain. ??? TURMERIC (CURCUMIN MISC) by Misc.(Non-Drug; Combo Route) route. ??? naproxen sodium (ALEVE) 220 mg Capsule Take 220 mg by mouth. Reported on 10/22/2016 ??? valACYclovir (VALTREX) 1 gram Tablet take 2 tablets by mouth twice a day 0 ??? traMADol (ULTRAM) 50 mg Tablet Take 50 mg by mouth nightly. 0 ??? clindamycin (CLEOCIN) 150 mg capsule Take 150 mg by mouth 2 times daily. Prior to dental procedures ??? acetaminophen (TYLENOL) 500 mg tablet Take 1,000 mg by mouth 2 times daily. ??? sildenafil (VIAGRA) 100 mg tablet Take 100 mg by mouth as needed. 25 mg - 50 mg prn Allergy: Allergies Allergen Reactions ??? Penicillins Other (See Comments) Unknown Family History: Family History Problem Relation Age of Onset ??? Cerebrovascular Accident Father ??? Cancer Brother Social History: Unable to verify due to patient's aphasia Social History Social History ??? Marital status: Single Spouse name: N/A ??? Number of children: N/A ??? Years of education: N/A Occupational History ??? Not on file. Social History Main Topics ??? Smoking status: Former Smoker Quit date: 03/13/1981 ??? Smokeless tobacco: Never Used ??? Alcohol use 4.2 oz/week 7 Cans of beer per week Comment: not drinking at night anymore, still drinking during the day ??? Drug use: Yes Special: Marijuana Comment: for sleep ??? Sexual activity: Not on file Other Topics Concern ??? Not on file Social History Narrative Review of systems: Unable to verify due to patient's aphasia Physical Exam: Vitals: Temp: [37.2 ??C (99 ??F)] Heart Rate: [73] Resp: [13-18] BP: (174)/(79) SpO2: [99 %-100 %] Heart Rate from SPO2: [71 bpm] Gen: Patient of apparent stated age, well nourished, well developed, awake, alert, NAD Neuro Exam: MS: AAOx4, severe receptive aphasia, fluent nonsensical speech, unable to follow commands, does notseem to understand even simple commands, no dysarthria CN: PERRL, EOMI, visual fitch intact to threat No facial asymmetry Hearing intact grossly Motor: Normal bulk and tone. Moves all four extremities against gravity, unable to perform strengthtesting due to receptive aphasia Sensation: Intact to light touch grossly throughout Reflexes: DTRs 2+ R, 2+ L Biceps 2+ R, 2+ L Brachioradialis 2+ R, 2+ L Triceps 2+ R, 2+ L Patellar Toes - R down, L down Coordination: Unable to perform heel to huerta or finger to nose due to receptive aphasia NIH Stroke Scale: (bold applicable choices) NIH Stroke Scale at Initial Evaluation: 1.a. Level of consciousness: 0-Alert 1-Not alert, but arousable with minimal stimulation 2-Not alert, requires repeat stimulation to attend 3-Coma 1.b. Ask patient the month and their age: 0-Answers both correctly 1-Answers one correctly 2-Both incorrect 1.c. Ask patient to open and close eyes: 0-Obeys both correctly 1-Obeys one correctly 2-Both incorrect 2. Best gaze (horizontal eye movement): 0-Normal 1-Partial gaze palsy 2-Forced deviation 3. Visual field testin-No visual field loss 1-Partial hemianopia 2-Complete hemianopia 3-Bilateral hemianopia (blind including cortical blindness) 4. Facial paresis (Ask patient to show teeth or raise eyebrows and close eyes tightly): 0-Normal symmetrical movement 1-Minor paralysis (flattened nasolabial fold, asymmetry on smiling) 2-Partial paralysis (total or near paralysis of lower face) 3-Complete paralysis of one or both sides (absence of facial movement in the upper and lower face) 5. Motor function right arm: 0-Normal (extends arm 90 degrees for 10 seconds without drift) 1-Drift 2-Some effort against gravity 3-No effort against gravity 4-No movement UT-Untestable (Joint fused or limb amputated) 5. Motor function- left arm: 0-Normal (extends arm 90 degrees for 10 seconds without drift) 1-Drift 2-Some effort against gravity 3-No effort against gravity (but baseline) 4-No movement UT-Untestable (Joint fused or limb amputated) 6. Motor function right le-Normal (extends leg 30 degrees for 5 seconds without drift) 1-Drift 2-Some effort against gravity 3-No effort against gravity 4-No movement UT-Untestable (Joint fused or limb amputated) 6. Motor function-left le-Normal (extends leg 30 degrees for 5 seconds without drift) 1-Drift 2-Some effort against gravity 3-No effort against gravity 4-No movement UT-Untestable (Joint fused or limb amputated) 7. Limb ataxia: 0-No ataxia 1-Present in one limb 2-Present in two limbs 8. Sensory (Use pinprick to test arms, legs, trunk and face compare side to side): 0-Normal 1-Mild to moderate decrease in sensation 2-Severe to total sensory loss 9. Best language (describe picture, name items, read sentences): 0-No aphasia 1-Mild to moderate aphasia 2-Severe aphasia 3-Mute 10. Dysarthria (read several words): 0-Normal articulation 1-Mild to moderate slurring of words 2-Near unintelligible or unable to speak UT-Intubated or other physical barrier 11. Extinction and inattention: 0-Normal 1-Inattention or extinction to bilateral simultaneous in one of the sensory modalities 2-Severe radha-inattention or radha-inattention to more than one modality TOTAL SCORE: 10 Labs: No results found for this or any previous visit (from the past 24 hour(s)). Diagnostic Tests and Imaging: Head CT w/out: obtained prior to admission at [facility]: no acute intracranial processes CTA CACO reviewed with Dr. Godoy at 14:00 - no focal area of stenosis or occlusion in the head andneck vasculature Swallow Screen Results: PASSED (All YES responses) Time 14:30 Assessment and Plan: Alvin Cat is a 71 y.o. right handed male with PMH of BPH who presents as a transfer from [facility] for acute onset aphasia now s/p tPA at 11:53am. On exam the patient has severe receptive aphasia but no other focal neurological deficits. The symptoms localize to the inferior division of the leftMCA. Possible etiologies include cardioembolic or atheroembolic. CT CACO does not show a occlusion that could account for these symptoms. Therefore, another possibility is that the symptoms are related to migraine aura which he has experienced in the past.Thrombolytics given. # Aphasia s/p tPA at 11:53am -Admit to neurology, ICU level of care -Neuro check & vitals per post tPA protocol: every 15 minutes X 2 hours, then every 30 minutes x 6 hours, then every hour for 24 hours post infusion, then every 2 hours afterwards -Permissive HTN, treat SBP >180/105 with prn labetalol, enalaprilat, nicardipine drip - Hold antiplatelets for first 24 hours post tPA -Check CBC, BMP, LFT, lipid profile, HbA1c, Mg, Phos, UA -Consider statin pending lipid panel -TTE -12 lead EKG -Telemetry -MRI brain wo contrast -CTA head & neck -PT/OT/[facility] [facility]INTER # Prophylaxis - No DVT prophylaxis first 24 hours post tPA -RBOs -SCDs # Supportive care - G[employer] LEAF PRINTER to evaluate for help determining appropriate diet -Tylenol PRN -Up with assistance # FULL code Andrew De La O MD PGY-3 Vascular Neurology Pager [phone] Standard [facility] Swallow Screen: This screen is to be used to document a Swallow Screen prior to ingestion of water and /or oral medications for patients with possible stroke (Ischemic or Hemorrhagic). Exclusion Criteria: A swallow screen is not to be performed on patients who: ?? have a decreased level of consciousness. ?? are not able to follow simple commands. ?? are hypoxic, or have increasing O2 needs or may need to be intubated. ?? have a G/J tube for nutrition. ?? have a recent history of a swallowing disorder *These patients should remain NPO (HOLD MEDS) and the physician notified for further orders. Swallow Screen Using Water: None of the Exclusion Criteria as mentioned above is present? Patient is alert and sitting upright? Able to close lips and tongue is midline? Able to cough, manage oral secretions with dry voice? ONLY IF ABOVE ALL YES, Able to swallow 30 ml of water without coughing, displaying a wet voice or choking? Repeat Twice. ??? If YES to all responses, proceed with water and oral medications as well as diet as medical provider deems appropriate. Consider G[employer] LEAF [employer]INTER consult for full evaluation and diet recommendations. ??? If NO to any of the responses, stop immediately, keep patient NPO and notify physician. ??? Associated attestation - Washington Deluca MD - 06/02/2017 10:33 PM EST Neurology Staff Note I have reviewed the above resident's history during the visit and I agree with the details as written. My physical examination confirms the resident's findings. The assessment and plan were formulated in discussion with me at the time of the visit and I agree with them as documented. He has mostly incoherent speech. He held his head as if her was having a headache. No apparent limbweakness. No meningismus. No rash. CT [facility], CTA here unremarkable. Sudden isolated aphasia of unclear etiology, now s/p IV t-PA. The normal CTA is unexpected and suggests either a non-vascular etiology (prolonged migraine aura, encephalitis, other) or embolization with no ongoing visible occlusion. Given fever that began after transfer, will cover with acyclovir for now. Check EEG and if feasble, MRI Updated his SO in the room earlier and close friend Dr Mohan in [place] at her request. I have examined the patient myself and personally reviewed all studies. In addition, I certify thatI am a [facility] credentialed attending provider with admitting privileges and that the patient meets or has met medical necessity to require an inpatient IPI level of care meeting a minimum of two midnights or is on the [facility] inpatient only procedure list (status C) due to: - neurologic instability requiring neurologic checks at least every 4 hours. - acute stroke requiring neurologic checks at least every 4 hours. MCCs and CCs on admission (Present if in bold): Clinically significant cerebral edema, vasogenic Hyponatremia CHF acute, systolic Brain compression Hypernatremia CHF acute on chronic, systolic Clinically significant cerebral edema, cytotoxic Cerebellar ataxia CHF acute on chronic, diastolic Coma Hypertension, malignant CHF acute diastolic Hemiplegia Hypertension accelerated CHFchronic diastolic Hemiparesis Hypertensive encephalopathy Dementia with delrium Quadraplegia Malnutrition BMI<19 Dementia with depression Encephalopathy, metabolic Cachexia Alzheimer's Dementia with behavioral disturbance Encephalopathy, toxic Morbid obesity, BMI>40 Anoxic brain damage Encephalopathy, other CKD stage 4 (eGFR 15-30ml/min/1.73m2) Acute Kidney Injury Delirium, drug induced CKD stage 5 or ESRD Paroxysmal AF Persistent AF Longstanding persistent AF Permanent AF * Prosper Laura MD - 06/02/2017 1:21 PM EST CRITICAL CARE SERVICE ADMISSION HISTORY AND PHYSICAL Alvin Cat : [id number] History of Present Illness: Alvin Cat ( ) is a 71 y.o. male with history of BPH presenting with acute onset aphasia at 9:30 AM s/p TPA administration at 11:53 AM at OSH. Per review of chart, presented with moderate expressive aphasia this morning at 930 AM while waiting to see psychiatrist. Taken to ER where he was noted to have severe asphasia, but able to follow motor commands, NIH stroke score 4. CT head revealed no acute process, CXR unremarkable, EKG NSR. Given severity and acuity of symptoms, he was treated with TPA at 11:53 AM, with worsening aphasia post t reatment, NIH stroke scale 6. Transferred to [facility] for post TPA management, further neurovascular imaging and neurology evaluation given evolving symptoms. He has had at least 4 previous similar episodes of aphasia, where he is unable to comprehend what his partner is saying and unable to speak normally with noted frustration. Prior workup has included MRI, and he is followed by a neurologist, with symptoms being thought to be related to migraine auras. Patient spouse also endorses recent antibiotic course completed yesterday for infected cyst on his back, but denies any recent sick contacts, travel history or fevers. Arrived to ICU with severe receptive aphasia, and nonsensical speech; unable to follow commands. Nonotable dysarthria or extremity weakness. Hypertensive to SBP 170s, with O2 sats 100% on RA. Review of Systems: Review of systems not obtained due to patient factors. Past Medical History: No past medical history on file. Past Surgical History: Past Surgical History: Procedure Laterality Date ??? CREATED BY INTERFACE arthroscopic knee surgeries x3 Procedure Date: 2004 ??? CREATED BY INTERFACE Entered not Verified Procedure Date: 04/24/2010 ??? CREATED BY INTERFACE hernia repair Procedure Date: 1982 ??? CREATED BY INTERFACE pilonidal cyst removal Procedure Date: 1977 ??? PRO LAP, INGUINAL HERNIA REPR, INITIAL 08/16/2013 LAPAROSCOPIC HERNIA REPAIR, INGUINAL INGUINAL- MAYRA performed by Renzo Velasquez MD at [facility] MAIN OR Allergies: Allergies Allergen Reactions ??? Penicillins Other (See Comments) Unknown Home Medications: Prescriptions Prior to Admission Medication Sig Dispense Refill Last Dose ??? ibuprofen (ADVIL;MOTRIN) 200 mg Tablet Take 200 mg by mouth every 6 hours as needed for Pain. Past Week at Unknown time ??? TURMERIC (CURCUMIN MISC) by Misc.(Non-Drug; Combo Route) route. Past Week at Unknown time ??? naproxen sodium (ALEVE) 220 mg Capsule Take 220 mg by mouth. Reported on 10/22/2016 Past Week atUnknown time ??? valACYclovir (VALTREX) 1 gram Tablet take 2 tablets by mouth prn 0 Past Week at Unknown time ??? traMADol (ULTRAM) 50 mg Tablet Take 50 mg by mouth nightly. 0 Past Week at Unknown time ??? acetaminophen (TYLENOL) 500 mg tablet Take 1,000 mg by mouth 2 times daily. Past Week at Unknown time ??? diphenhydrAMINE (BENADRYL) 25 mg Capsule Take 25 mg by mouth nightly as needed for Sleep. Taking at Unknown time ??? sildenafil (VIAGRA) 100 mg tablet Take 100 mg by mouth as needed. 25 mg - 50 mg prn More than amonth at Unknown time Family History: Family History Problem Relation Age of Onset ??? Cerebrovascular Accident Father ??? Cancer Brother Social History: Social History Social History ??? Marital status: Single Spouse name: N/A ??? Number of children: N/A ??? Years of education: N/A Occupational History ??? Not on file. Social History Main Topics ??? Smoking status: Former Smoker Quit date: 03/13/1981 ??? Smokeless tobacco: Never Used ??? Alcohol use 4.2 oz/week 7 Cans of beer per week Comment: not drinking at night anymore, still drinking during the day ??? Drug use: Yes Special: Marijuana Comment: for sleep ??? Sexual activity: Not on file Other Topics Concern ??? Not on file Social History Narrative Vitals: Last value Range last 24 hrs Temperature Temp: 38.2 ??C (100.8 ??F) Temp: [37.2 ??C (99 ??F)-38.2 ??C (100.8 ??F)] Heart Rate Heart Rate: 81 Heart Rate: [73-86] Cuff BP BP: 151/73 BP: (151-189)/(73-104) Arterial BP BP (Arterial Line): -- CVP CVP: -- Respiratory Rate Resp: 21 Resp: [13-26] SpO2 SpO2: 99 % SpO2: [98 %-100 %] Physical Exam: General: no acute distress, appears stated age, well nourished Neurological: Awake, alert, severe receptive aphasia, fluent nonsensical speech, unable to follow commands, does not seem to understand even simple commands, no dysarthria CN: PERRL, EOMI, visual fitch intact to threat No facial asymmetry Hearing intact grossly Motor: Normal bulk and tone. Moves all four extremities against gravity, unable to perform strengthtesting due to receptive aphasia CV: +S1S2, normal rate and rhythm, no murmur. Pulm: Normal effort, lung fitch clear to auscultation bilaterally. No wheezes or rales. Abd: soft, non-distended, no peritoneal signs. Musculoskeletal: No LE edema. Skin: warm and dry. Labs: Recent Labs 06/02/17 1435 WBC 7.9 HGB 14.7 HCT 40.4* PLATELET 308 Recent Labs 06/02/17 1435 NA Not Perf K Not Perf CL Not Perf CO2 20* BUN 15 CREATININE 1.22 GLUCOSE 119 Recent Labs 06/02/17 1435 CALCIUM 8.7 Recent Labs 06/02/17 1435 AST Not Perf ALT Not Perf ALKPHOS Not Perf BILITOT 0.8 BILIDIR Not Perf Imaging: CTA carotids & [place] of nielsen w/o contrast, 06/02/2017: official read pending; but no evidenceof acute intracranial process per Neurology Assessment: Alvin Cat is a 71 y.o. male presenting with acute onset severe receptive aphasia at 930 AM,s/p TPA for suspected CVA at 11:53 AM. No improvement noted s/p TPA therapy. No evidence of acute intracranial process on post TPA cerebrovascular imaging. Given history of prior similar episode, this may represent another migraine w/aura. Noted to be febrile, however with unimpressive WBC. Will perform infectious workup and cover empirically with antibiotics given unclear etiology of current symptoms. Unable to perform lumbar puncture at this time for CSF culture given proximity of TPA dose. Plan: Neuro: - pain: APAP prn - sedation: none - Neuro check & vitals per post tPA protocol: every 15 minutes X 2 hours, then every 30 minutesx 6 hours, then every hour for 24 hours post infusion, then every 2 hours afterwards - MRI brain w/o contrast CV: - goal SBP < 180/105 - hydralazine prn, labetalol prn, nicardipine gtt as needed to maintain BP goals - enalaprilat 1.25 mg IV Q6H prn - TTE - EKG - Telemetry - hemodynamically stable at this time but levophed gtt if he develops septic physiology Pulm: - maintain SpO2 >92% - pulm toilet, IS GI: - Diet: NPO diet (Hold Meds). - bowel regimen - Stress ulcer prophylaxis: /FEK: - mIVFs: 0.9% NS @ 100 ml/hr - goal UOP / fluid goal: 35 ml/hr - BMP, Mg, Phos, lipid profile, LFTs MSK: - no active issues. ID: - daily CBC, BMP - infectious workup - CXR, UA w/culture, blood culture x2 - broad spectrum abx coverage: - vancomycin: 1.5g IV Q12H - ceftriaxone: 2g IV Q12H - ampicillin: 2g IV Q4H - acyclovir: 10 mg/kg/dose IV Q8H - urine Cx sent; CXR @ OSH unremarkable Heme: - DVT prophylaxis: SCDs. Hold chemoprophylaxis for 24H s/p TPA Endo: - HA1c - no active issues. Activity: -as tolerated. Lines: - PIV Primary Service: Critical Care, Neurology Consults: -PT/OT/[facility] Code Status: Full Code Dispo: -admit to ICU, Critical Care Red 2 Team Prosper Laura MD 06/02/2017 Associated attestation - Kristina Delong MD - 06/02/2017 8:34 PM EST Attending Attestation I have seen the patient and reviewed the resident's history below and I agree with the details as written. The assessment and plan were formulated in discussion with me and I agree with them as documented. Pertinent History: Alvin Cat is a 71 y.o. male, with h/o BPH, acute onset of expressive aphasia at 9:30am on 06/02, and was given tPA at 11:53am at OSH for presumed ischemic stroke. On arrivalto OSH, NIHSS was 4, but aphasia worsened. CTH showed no acute process. CXR negative. EKG NSR. He was transferred to [facility] for post-tPA management, where CTA showed no vessel occlusion. He has had 4 prior similar episodes of receptive and expressive aphasia which was attributed to migraine auras, asworkup including MRI has been negative. Patient had chills in the ED, and febrile to 38.9. Denies any neck pain, no notable neck stiffness on exam. According to the , patient has not had any recent travels, sick contacts, but completed a course of antibiotics yesterday for an infected cyst on the back. Pertinent Exam: N: drowsy but arousable, not following commands, appears to be easily frustrated/irritated by inability to understand speech, garbled speech (word salad), no dysarthria No facial asymmetry. 5/5 strength in b/l UE and LE CV: RRR, no MRG L: CTAB Abd: soft, NT Ext: moving all extremities, WWP Labs: WBC 7.9, Hgb 15. Cr 1.16 LFT normal, Lipid panel normal Plan: Etiology of aphasia with no other neurologic deficits unclear as CTH and CTA have been negative. Possible encephalitis given fevers/chills vs. seizure vs. Migraines. Unable to obtain LP due to recent tPA. Will pursue infectious workup with blood cultures, UA, CXR, and start with empiric Vanc/C eftriaxone/Ampicillin/Acyclovir for possible bacterial/viral encephalitis. Additional workup with spot EEG, MRI Brain, TTE with bubble study, HgA1c. Meanwhile, we will monitor neuroexam q1h post-tPA,permissive hypertension for goal SBP<180, MIVF at 100mL/hr as patient has minimal appetite. PT/OT and Speech therapy ordered. //////////////////////////////////////////////////////////////////////////////// //// Attestation: IS PATIENT CRITICALLY ILL ? Is there a high potential of sudden, clinically significant, or life threatening deterioration? Yes Is there a need for direct personal assessment and management to treat/prevent multiple vital organfailure/deterioration? Yes PATIENT IS CRITICALLY ILL WITH THESE DIAGNOSES BEING MANAGED BY [facility] TEAM: Aphasia, altered mental status, possible acute stroke s/p tPA I personally performed 46min of aggregate critical care time exclusive of procedures and teaching. This includes time spent during direct patient evaluation and reassessment, interpreting diagnostic tests, directing life and/or organ supporting interventions and documentation on the unit. Kristina Delong MD documented in this encounter Procedure Notes * Ronan Fontanez Jr., MD - 06/02/2017 8:02 PM ESTAssociated Order(s): EEG AWAKE, ASLEEP, DROWSY [facility] Department of Neurology Inpatient EEG Report Name of the Patient: Alvin Cat Date of : 1945 Date of Service: 06/02/2017 Referring physician: Andrew De La O M.D. BRIEF HISTORY: Alvin Cat is a 71 y.o. year old patient with AMS. MEDICATIONS: Current Facility-Administered Medications Medication Dose Route Frequency Provider Last Rate Last Dose ??? sodium chloride 0.9 % flush 5 mL 5 mL Intravenous Q12H Prosper Laura MD 5 mL at 06/02/17 1330 ??? sodium chloride 0.9 % flush 5-20 mL 5-20 mL Intravenous Q1 Min PRN Prosper Laura MD ??? lidocaine (XYLOCAINE) 10 mg/mL (1 %) injection 3 mg 0.3 mL Subcutaneous Once PRN Prosper Laura MD ??? labetalol (NORMODYNE,TRANDATE) injection 10-20 mg 10-20 mg Intravenous Q15 Min PRN , MD Itzel ??? enalaprilat (VASOTEC) injection 1.25 mg Intravenous Q6H PRN Prior, Andrew Richter MD ??? niCARdipine 0.2 mg/mL (standard Adult and Pedi greater than 20 kg) infusion 0-15 mg/hr Intravenous Continuous PRN Prior, Andrew Richter MD ??? docusate sodium (COLACE) capsule 100 mg 100 mg Oral BID Prior, Andrew Richter MD ??? bisacodyl (DULCOLAX) suppository 10 mg 10 mg Rectal Daily PRN Prior, Andrew Richter MD ??? magnesium hydroxide (MILK OF MAGNESIA) oral suspension 10 mL 10 mL Oral Daily PRN Prior, Andrew Richter MD ??? acetaminophen (TYLENOL) tablet 975 mg 975 mg Oral Q6H PRN Prior, Andrew Richter MD Or ??? acetaminophen (TYLENOL) 650 mg/20.3 mL oral liquid 975 mg 975 mg Per G Tube Q6H PRN Prior, Andrew Richter MD 975 mg at 06/02/17 1815 Or ??? acetaminophen (TYLENOL) suppository 975 mg 975 mg Rectal Q6H PRN Prior, Andrew Richter MD ??? sodium chloride 0.9% infusion 100 mL/hr Intravenous Continuous Prior, Andrew Richter MD 100 mL/hr at 06/02/17 1633 100 mL/hr at 06/02/17 1633 ??? Vancomycin Level - MAR Order Reminder NOT APPLICABLE Per Pharmacy Prosper Laura MD ??? cefTRIAXone (ROCEPHIN) 2g in dextrose 5% 50mL 2 g Intravenous Q12H Prosper Laura MD Stopped at 06/02/17 1912 ??? ampicillin 2g vial attach to sodium chloride 0.9% 100 mL Mini-Bag Plus 2 g Intravenous Q4H Prosper Laura MD Stopped at 06/02/17 1827 ??? acyclovir (ZOVIRAX) 725 mg in sodium chloride 0.9% 264.5 mL 725 mg Intravenous Q8H Prosper Laura MD 264.5 mL/hr at 06/02/17 1924 725 mg at 06/02/17 1924 ??? vancomycin 2 g in sodium chloride 0.9% 500 mL 2 g Intravenous Once Washington Deluca MD ??? [START ON 06/03/2017] vancomycin 1.5 g in sodium chloride 0.9% 250 mL 1.5 g Intravenous Q18H Washington Deluca MD METHODS: A 21 channel digitized electroencephalogram was performed in the [facility]. The 10/20 international system of electrode placement was used and bipolar and referential electrode montages were recorded. In addition to EEG the patient was monitored for EKGand lateral/vertical eye movements. Video was recorded during the session. The duration of the recording was 30 minutes. CODER OPERATOR'S REPORT: Performed by: SB Patient was not sleep deprived. Sleep was not attained. Photic stimulation was performed. Hyperventilation was not performed. Effort was was not adequate. Movement and other artifact was not significant. Comments:HV was not performed due to the question of CVA and pt could not follow commands as well. ELECTROENCEPHALOGRAPHER'S REPORT: Background The background is comprised of continuous polymorphic 1-2Hz activity admixed with diffuse beta. No discernable posterior reactive rhythm is noted. Waveforms from the left fronto-temporal region are slightly more prominent delta activity. Sleep No electrographic evidence of stage II sleep was seen. Hyperventilation Hyperventilation was not performed. Photic Stimulation Photic stimulation using a step-eng increase in photic frequency varying from 1-21Hz was performedwithout the appearance of abnormal activity. Abnormal EEG Activity Diffuse slowing, additional left fronto-temporal slowing. EKG The precordial tracing revealed a regular rhythm with physiologic variation. PRIOR EEG: No previous EEG reports were readily available. INTERPRETATION: This EEG is abnormal due to marked generalized slowing, with additional focal higher amplitude slowing at the left fronto-temporal region. CLINICAL CORRELATION: This EEG is consistent with marked diffuse or multifocal dysfunction, with superimposed left fronto-temporal dysfunction. This latter observation may reflect an underlying structural abnormality or post-ictal slowing. No frankly epileptiform features are seen. Ronan Fontanez MD, PhD Department of Neurology Personal Pager #[phone] 06/02/2017 8:37 PM documented in this encounter Miscellaneous Notes * Med Student Progress Note - Estrella Ro Torie - 06/04/2017 6:45 AM EST Neurology Progress Note Patient Name: Alvin Cat Admit Date: 06/02/2017 Attending: Washington Deluca MD Patient ID: Alvin Cat is a 71 y.o. right-handed male with a past history of insomnia, BPH, episodes of word-finding difficulty, migraine aura without headache, and remote history of encephalitis who was transferred from [facility] for acute onset receptive aphasia and severe frontal PAREDES s/p tPA, 06/02 CACO and06/[address] Head both negative. Interval History: - Transferred to , [facility] overnight, no apparent aphasia - 06/03 CT Head WO contrast: no acute intracranial hemorrhage --> started aspirin 81 mg PO and lovenox 40 mg SQ - Blood cultures x2 NG@ 1day, VSS, and WBC wnl --> vanc and amp discontinued, still on acyclovir - Astudillo removed, voiding spontaneously with adequate UOP - Evaluated by PT/OT: anticipated discharge home Medications: Scheduled Meds: ??? enoxaparin 40 mg Subcutaneous Daily ??? aspirin 81 mg Oral Daily ??? sodium chloride 0.9 % 5 mL Intravenous Q12H ??? docusate sodium 100 mg Oral BID ??? acyclovir 725 mg Intravenous Q8H Continuous Infusions: ??? niCARdipine ??? sodium chloride 0.9% 100 mL/hr (06/04/17 0137) PRN Meds:.flu vacc (65 yrs+) (PF), sodium chloride 0.9 %, lidocaine, labetalol, enalaprilat, niCARdipine AND Vital signs Q4H AND Cardiac Monitoring, bisacodyl, magnesium hydroxide, acetaminophen OR acetaminophen OR acetaminophen Physical Exam: Vitals: Temp: [36.6 ??C (97.9 ??F)-37.1 ??C (98.8 ??F)] Heart Rate: [60-75] Resp: [13-25] BP: (119-181)/(56-92) SpO2: [97 %-100 %] Heart Rate from SPO2: [62 bpm-73 bpm] Gen: Patient of apparent stated age, well nourished, well developed, awake, alert, NAD Neck: Supple, no meningismus CV: + S1, S2, RRR, no murmur Resp: CTA B/L Abd: +normoactive bowel sounds, soft, nontender, nondistended Ext: No edema. No bony deformity Neuro Exam: MS: AAOx4, clear language with no paraphasic errors and no word-finding difficulty, follows commands Repetition intact Concentration intact- serial 7s Memory 3/3 IR, 3/3 SR, LTM intact CN: Decreased visual acuity PERRLA, EOMI, visual fitch full Facial sensation intact, no facial asymmetry Hearing grossly intact, but diminished Palate elevates symmetrically, tongue protrudes midline SCM and trap strength intact Motor: Normal bulk and tone. UE: 5/5 R, 5/5 L Arm abduction at shoulder (note R full tear of rotator cuff, L partial tear of rotator cuff) 5/5 R, 5/5 L Elbow extension 5/5 R, 5/5 L Elbow flexion 5/5 R, 5/5 L Change Room Attendant 5/5 R, 5/5 L Thumb abduction (APB) 5/5 R, 5/5 L Finger abduction LE: 5/5 R, 5/5 L Hip flexion 5/5 R, 5/5 L Knee extension 5/5 R, 5/5 L Knee flexion 5/5 R, 5/5 L Foot dorsiflexion 5/5 R, 5/5 L Foot plantar flexion Sensation: Intact to light touch Reflexes: DTRs 2+ R, 2+ L Biceps 2+ R, 2+ L Brachioradialis 2+ R, 2+ L Triceps 2+ R, 2+ L Patellar 2+ R, 2+ L Achilles tendon Toes - R mute, L mute Coordination: Finger to nose and finger tapping intact No tremor Gait: Steady, stable Labs: Recent Results (from the past 24 hour(s)) Basic Metabolic Panel (non-fasting) Collection Time: 06/04/17 5:02 AM Result Value Ref Range Glucose Lvl 96 65 - 199 mg/dL BUN 12 10 - 20 mg/dL Creatinine 1.03 0.80 - 1.50 mg/dL Sodium 140 135 - 145 mmol/L Potassium 3.9 3.5 - 5.0 mmol/L Chloride 107 98 - 107 mmol/L CO2 21 (L) 22 - 31 mmol/L Anion Gap 12 5 - 15 mmol/L Calcium 8.2 (L) 8.5 - 10.5 mg/dL Estimated GFR >60 >=60 Hemogram Collection Time: 06/04/17 5:02 AM Result Value Ref Range WBC 5.3 4.0 - 9.5 x10(3)/mcL RBC 3.98 (L) 4.58 - 5.54 x10(6)/mcL Hemoglobin 12.8 (L) 13.7 - 16.5 gm/dL Hematocrit 36.8 (L) 40.5 - 48.5 % MCV 92.5 82.9 - 93.1 fL MCH 32.2 (H) 27.5 - 32.1 pg MCHC 34.8 32.0 - 35.7 gm/dL Platelets 232 145 - 357 x10(3)/mcL RDWSD 44.6 36.0 - 45.0 fL RDWCV 13.0 11.4 - 13.8 % MPV 9.8 7.6 - 12.9 fL nRBC % Auto 0.0 % nRBC Abs Auto 0.000 0.000 - 0.000 x10(3)/mcL Differential, Automated Collection Time: 06/04/17 5:02 AM Result Value Ref Range Neutrophils % 61.3 % Neutr Abs (ANC) 3.25 1.70 - 6.10 x10(3)/mcL Lymphocytes % 24.0 % Lymphocytes Abs 1.3 0.9 - 3.2 x10(3)/mcL Monocytes % 9.5 % Monocyte Abs 0.5 0.3 - 0.9 x10(3)/mcL Eosinophils % 4.2 % Eosinophils Abs 0.2 0.0 - 0.4 x10(3)/mcL Basophils % 0.8 % Basophils Abs 0.0 0.0 - 0.1 x10(3)/mcL Immature Gran % 0.20 % Vianca Gran Abs 0.01 0.00 - 0.04 x10(3)/mcL Consults, Diagnostic Tests, and Imaging: Consults PT/ OT/ G[employer] LEAF PRINTER ?? Diagnostic Tests ?? 06/02/17 EKG - wnl ?? 06/02/17 EEG INTERPRETATION: This EEG is abnormal due to marked generalized slowing, with additional focal higher amplitude slowing at the left fronto-temporal region. ?? 06/02/17 Blood Culture x2 NG@1day 06/02/17 UA- wnl ?? Imaging [facility] 06/03/17 CT HEAD WO CONTRAST IMPRESSION No acute intracranial hemorrhage. ?? [facility] 06/02/17 CT CAROTIDS AND JENA OF NIELSEN W CONTRAST IMPRESSION 1. 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 No intracranial occlusion or severe stenosis. 2. ??Extensive changes of cervical spondylosis. 3. ??Incidental 2 cm lucent lesion in the left mandible, which appears to contain an unerupted tooth. This may represent a dentigerous cyst. Repeat CT of the face without contrast to be considered when clinically appropriate for better evaluation. ?? [facility] 06/02 XR CHEST PA OR AP 1 VIEW IMPRESSION No pneumonia or other acute cardiopulmonary process [facility] 06/02/17 CT WO CONTRAST No acute intracranial process Assessment / Plan: Alvin Cat is a 71 y.o. male right-handed male with a past history of insomnia, dilated cardiomyopathy, BPH, OA, episodes of word-finding difficulty, migraine aura without headache, and remotehistory of encephalitis who was transferred from [facility] for acute onset receptive aphasia and severe frontal PAREDES now s/p tPA, 06/02 CACO and [facility] noncon CT negative for stenosis, occlusion, and acute intracranial processes. On initial exam, the patient had severe receptive aphasia and bilateral frontalheadache, but no other focal neurological deficits. Pt was given IV Mg with good effect for headache. Pt was found to be febrile and tachycardic on 06/02, so an infectious workup was started: UA was negative, blood cultures have been negative to date. Encephalitis was considered as possible diagnosis as pt was febrile with severe headache and confusion Empiric broad spectrum antibiotics were started 06/02 (Ceftriaxone, Ampicillin, and Acyclovir). Vanc and amp were discontinued 06/03 given blood cultures x2 NG@ 1day, VSS, and WBC wnl. Pt's frontal headache resolved overnight on 06/03, and he is nolonger aphasic this morning. Pt dramatic improvement in such a short time period is not characteristic of encephalitis, making encephalitis an unlikely diagnosis. Acyclovir to be discontinued pendingtoday's MRI results. Given the abrupt onset of symptoms, the differential includes stroke vs. seizure vs. migraine with aura. ?? A cardioembolic or atheroembolic stroke could be the cause of the pt's symptoms. If the cause is indeed vascular, the symptoms localize to the inferior division of the left MCA. Thus far, 06/02 nonconCT Head, 06/02 CACO, and 12/[address] Head are negative for stroke and stenosis. F/u MRI WO contrast and TTE today. The last TTE was done 11/16/15 for suspect TIA, EF was 65%-- unchanged from 01/15/2012 TTE. In the context of PMH of migraine aura without headache, this episode may have been a migraine withaura. Note positive headache response to IV Mg and dramatic improvement of neurologic status after headache resolution. Seizure with post ictal state is another possibility that may explain pt's symptoms. EEG results were abnormal, but not entirely consistent with seizure. ? # Aphasia, resolved - MRI brain wo contrast today - TTE today - Permissive HTN, treat SBP >180/105 with prn labetalol and enalaprilat - f/u Blood cultures- amp and vanc discontinued, continue acyclovir pending MRI results - continue aspirin - LDL = 92, consider statin - Telemetry - CTA head &??neck and CT Head WO contrast completed - EEG completed - PT/OT/GOLD LEAF PRINTER ? # Prophylaxis - RBOs - Lovenox, SCDs, OOB ? # Supportive care - Regular diet - Trend and replete lytes prn - Tylenol PRN -Dispo: schedule clinic f/u, pending MRI and TTE -Regular diet -Full Code Eyitemi Y Jayjay MS4 06/04/2017 * Plan of Care - Valerie Mesa RN - 06/04/2017 6:02 AM EST Problem: Patient Care Overview Goal: Plan of Care Review Outcome: Ongoing (Interventions Implemented as Appropriate) 06/03/17 0856 06/03/17 4484 Coping/Psychosocial Plan Of Care Reviewed With -- patient Plan of Care Review Progress improving -- OUTCOME EVALUATION NOTE: OUTCOME SUMMARY: Patient ambulated with family. Slept through night. PLAN MOVING FORWARD: MRI this morning. Discharge planning. INDIVIDUALIZED FALL PREVENTION INTERVENTIONS: Patient-specific fall risk factors per assessment: Medical equipment Assistance: SBA Supervision: Independent Surveillance: Bed locked in low position, call miller within reach, purposeful hourly rounding, clutter free environment, bed alarm on, family at bedside Patient-specific fall prevention interventions for sensory deficits provided: N/A CPG GOAL OUTCOME EVALUATION: Continue care plan as documented. * Initial Assessments - Lary Naik RN - 06/03/2017 4:37 PM EST Office of Care Management Initial Assessment Lary Naik RN reviewed record and discussed patient with Care Team. Source of Information: Patient, bedside nurse, and chart review. Introduced self/reviewed role; services accepted. Reason for Hospitalization: Reason for Admission as Stated by Patient: hernan No past medical history on file. Hospitalizations Within the Past 30 Days: Yes, The patient was at his normal state of health in thewaiting room a for psychology appointment at 9:30am this morning when he developed difficulty speaking. He was unable to speak normally and seemed frustrated. He denied any weakness, numbness, tingling , or pain. He was able to walk normally and use all his limbs. A facial droop was not noted. His partner notes that he has had four similar episodes in the past which lasted 15 minutes. In these episodes he had difficulty getting words out, numbness in the face, and visual changes. He had a work up including MRI head, CUS, TTE that were unremarkable. He was seen by neurology for these episodes which were felt to be more likely migraine aura without headache. The patient presented to [facility] with these symptoms. He had an NIHSS that was determined to be 4 and later was 6. BP was initially 186 but decreased to 166. He had a head CT that showed no acute intracranial process. Risks and benefits of tPA were discussed and it was determined that he had no contraindications. He received tPA at 11:53am. He was transferred to [facility] for post tPA management and consideration of interventional procedure with plans for a CTA CACO on admissiontransfer from Anticipated Length Of Stay (If known): Expected Length of Hospitalization: 10 Current Decision-Making Capacity: Alert and orientated x 2, some expressive aphasia and in my opinion he is not capable of making legal or financial decisions. Advance Care Planning: No, He has a Girlfriend and is definite on that term. She is not a partneror significant other. [place] surrogacy law and process of guardianship explained. If AD's have not been completed Any patient receiving care at [facility] must abide by [place] law. The hierarchy for surrogate decision making is: (a) Patient???s spouse, or civil union partner or common law spouse unless there is a divorce proceeding, separation agreement, or restraining order limiting that person???s relationship with the patient. (b) Any adult son or daughter of the patient. (c) Either parent of the patient. (d) Any adult brother or sister of the patient. (e) Any adult grandchild of the patient. (f) Any grandparent of the patient. (g) Any adult aunt, uncle, niece, or nephew of the patient. (h) A close friend of the patient. (i) The agent with financial power of axle and frame mechanic or a conservator appointed in accordance with RSA [id number]-A. (j) The guardian of the patient???s estate. Current Coping/Education/Information Needs: Current coping questions and concerns have been addressed. He understands that when he moves to a regular floor he will work with another child welfare caseworker until discharge. Current Functional Ability: Requires the assistance of one with ADL's. PT/OT to evaluate. Functional Status Prior to Admission: Ambulates without assistance, performs ADL's and IADL's independently. Home Environment: There is one step into his home without rails, he lives alone , no pets, girlfriend lives next door above garage at [address] [facility] [facility] [id number] Social & Family Supports/Community Resources: His girlfriend is his support system and some of his physicians. His daughter Susan lives out of town. Emergency Contact 1 Emergency Contact 2 ?Susan Huerta (Child) Elicia Romero (Friend) [phone] (H) [phone] (M) Behavioral Health History: Depression Substance Use/Abuse: Tobacco use, he had a 2ppd habit for 25 years and quit 30 years ago. Describeshimself as a moderate drinker, and smokes marijuana nightly to help him sleep. Other Pertinent/Service Specific Information: None at this time. Health/Prescription Coverage: Primary Insurance: MEDICARE Secondary Insurance: FINANCIAL ASSISTANCE Prescription Coverage: TBD Preferred Pharmacy: [facility] in [place], [place] Other: N/A Primary Care Provider: Diana Weaver MD [phone] Patient/Caregiver Goals of Treatment: To go home Potential Needs for Transition of Care: Rehab/SNF: N/A Home Health: N/A DME: N/A Dialysis: N/A Community Resources: TBD Transportation: His girlfriend Elicia will drive him home in her private vehicle. Other: Informed patient he might need outpatient therapy. Anticipated Barriers to Discharge/Special Considerations: No anticipated barriers to discharge. Plan: Discharge to home, no needs identified. A member of the Care Management team will continue to monitor progress, follow for continuity of care and assist with transition of care planning. Lary Naik RN Pager: [phone] * Plan of Care - Hari Mahajan OT - 06/03/2017 3:59 PM EST Problem: Patient Care Overview Goal: Plan of Care Review Outcome: Ongoing (Interventions Implemented as Appropriate) 06/03/17 1194 Coping/Psychosocial Plan Of Care Reviewed With patient Occupational Therapy Evaluation Pertinent History of Current Problem: 71 y.o. right handed male with PMH of BPH who presented as a transfer from [facility] for acute onset aphasia now s/p tPA at 11:53am on 06/02/2017. Active Non-Hospital Problems Diagnosis ??? Pericardial effusion ??? Dilated cardiomyopathy ??? Acute pain of both shoulders ??? Dupuytren's disease ? ? Rotator cuff disorder bilateral (R>L) ??? 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 Condyloma ??? Osteoarthritis ??? CIS - Bilateral knee osteoarthritis ??? CIS - Bilateral knee pain ??? CIS - rotator cuff tears ??? BPH (benign prostatic hyperplasia) ??? Erectile dysfunction ??? CIS - asbestos exposure Living Environment Comment: Lives alone, single level home with 1 step at entrance Prior Functional Level Comment: Indep with BADLs and IADLs Assessment: Pt has been seen by OT for evaluation, please refer to associated flowsheet data for details. Pt demonstrates the ability to perform basic ADL???s with supervision. Anticipate that pt will return home with assistance once medically ready for discharge. Do not anticipate further OT needswhile hospitalized. Therapy Frequency: evaluation only Pager: [phone] HARI MAHAJAN OT 06/03/2017 Occupational Therapy Rehabilitation Department 2017 OT Evaluation Code Rationale: ?? Diagnosis & Pertinent Co-Morbidities affecting Plan of Care: see PMHx above ?? Occupational Profile & Client History: Brief Expanded Extensive x ?? Assessment of Occupational Performance: 1-3 performance deficits x 3-5 performance deficits 5 + performance deficits ?? Clinical Decision Making: Low Moderate High x Clinical decision making of low complexity using standardized patient assessment instrument and measurable assessment of functional outcome. * Plan of Care - Eun Spence, PT - 06/03/2017 3:47 PM EST Problem: Patient Care Overview Goal: Plan of Care Review Outcome: Ongoing (Interventions Implemented as Appropriate) 06/03/17 4995 Coping/Psychosocial Plan Of Care Reviewed With patient Physical Therapy Treatment Number: 1 Pertinent History of Current Problem: 71 y/o male presented to [facility] with acute aphasia. s/p tPA at 11:53am. ICU overnight. ST/PT/OT consulted. Living Environment Comment: Lives alone in [place], [place] & home has only one stone step to enter & no stairs indoors. Girlfriend lives near. They travel & live in [place] after the firstof year he reports. Prior Functional Level Comment: Independent, go to pool @ [facility] 4 X/week. Precautions Comments: up with assistance, activity as tolerated Vital Signs During Session: Heart Rate: 75 BP: 163/87 SpO2: 99 % O2 Device: None (Room air) Pt seen today for Initial evaluation. Patient able to mobilize on his own with steady balance & asymptomatic. He & RN report speech improved over course of day & much better this afternoon. Please see the Rehab Evaluation Summaries report for objective data and specifics of today???s session. Staff Mobility Recommendations: Pt continue to transfer & ambulate (I) with staff supervision. Baseline didn't use any device and didn't need anything this afternoon, able to walk 4 laps around ICU unit with stand-by supervision. Anticipated Physical Therapy Frequency: evaluation only; goals met. Anticipated Discharge Disposition: home Pager: [phone] EUN SPENCE, PT Inpatient Physical Therapy 2017 PT Evaluation Code Rationale: ?? Diagnosis & Pertinent Co-Morbidities affecting Plan of Care: CVA Patient Active Problem List Diagnosis Code ??? Osteoarthritis M19.90 ??? CIS - asbestos exposure ??? CIS - Bilateral knee osteoarthritis ??? CIS - Bilateral knee pain ??? BPH (benign prostatic hyperplasia) N40.0 ??? Erectile dysfunction N52.9 ??? CIS - rotator cuff tears ??? Condyloma A63.0 ? ? Rotator cuff disorder bilateral (R>L) M67.919 ??? 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 Pericardial effusion I31.3 ??? Dilated cardiomyopathy I42.0 ??? Dupuytren's disease M72.0 ??? Acute pain of both shoulders M25.511, M25.512 ??? CVA (cerebral vascular accident) I63.9 ?? Clinical presentation: Stable Evolving Unstable X ?? Examination of Body Systems: Addressing 1-2 elements X Addressing 3 + elements Addressing 4 + elements Clinical decision making of low complexity based on pt's functional performance as outlined in thisevaluation. Problem: Acute Rehab Services Goal & Intervention Plan Goal: Physical Therapy Goal Stand Alone Therapy Goal Outcome: Ongoing (Interventions Implemented as Appropriate) 06/03/17 1515 Physical Therapy Goal PT Goal, Date Established 06/03/17 PT Goal, Time to Achieve by discharge PT Goal, Activity Type Pt demonstrate (I) with transfer's & gait level surfaces & stairs with good balance. PT Goal, [place] Level independent PT Goal, Additional Goal Pt able to communicate with inteligible words. PT Goal, Outcome goal met * Plan of Care - Joey Hussein RN - 06/03/2017 3:16 PM EST Problem: Skin Integrity Impairment, Risk/Actual (Adult) Goal: Skin Integrity/Wound Healing Patient will demonstrate the desired outcomes by discharge/transition of care. 06/03/17 1508 Skin Integrity Impairment, Risk/Actual (Adult) Skin Integrity/Wound Healing making progress toward outcome Problem: Patient Care Overview Goal: Plan of Care Review 06/03/17 0856 Coping/Psychosocial Plan Of Care Reviewed With patient Plan of Care Review Progress improving OUTCOME EVALUATION NOTE: OUTCOME SUMMARY: [address] scan completed at 1430. GOLD LEAF PRINTER cleared pt for a regular diet (he ate 100% of his lunch). Jay CROWELL'd, waiting for the pt to void. Transfer orders written, awaiting a bed. Pt afebrile throughout this shift. Expressive aphasia appears to be improving by the hour. PLAN MOVING FORWARD: MRI this evening. Transfer to 5W when a bed is available. PT/OT consults. INDIVIDUALIZED FALL PREVENTION INTERVENTIONS: Patient-specific fall risk factors per assessment: [current deficits]: Lines/tubing, cognitive impairment Assistance [level of assistance required for transfers and ambulation]: Assistance X 1 to help manage lines/tubing. Supervision [direct monitoring required during toileting and ADLs]: RN/ANGELES Surveillance [continuous indirect monitoring]: [place] ICU Monitor Patient-specific fall prevention interventions for sensory deficits provided, if applicable: [X] No CPG GOAL OUTCOME EVALUATION: Goal: Fall Prevention-Safe Patient Handling 06/03/17 0800 06/03/17 1400 Aquino Fall Risk History of Falling 0 -- Secondary Diagnosis 15 -- Ambulatory Aids 0 -- Intravenous Therapy/Heparin/Saline Lock 20 -- Gait/Transferring 0 -- Mental Status 15 -- Score 50 -- OTHER Aquino Fall Risk High -- Restraint Interventions Safety Promotion/Fall Prevention -- fall prevention program maintained;safety round/check completed Positioning Body Position -- independent Goal: Infection Control 06/03/17 0800 Safety Interventions Isolation Precautions standard precautions maintained Infection Prevention single patient room provided Coping Strategies Supportive Measures relaxation techniques promoted;verbalization of feelings encouraged;active listening utilized Problem: Stroke (Ischemic) (Adult) Goal: Signs and Symptoms of Listed Potential Problems Will be Absent, Minimized or Managed (Stroke) Signs and symptoms of listed potential problems will be absent, minimized or managed by discharge/transition of care (reference Stroke (Ischemic) (Adult) CPG). 06/03/17 0451 Stroke (Ischemic) Problems Assessed (Stroke (Ischemic)/TIA) all Problems Present (Stroke (Ischemic)/TIA) acute neurologic deterioration;cognitive impairment;communication impairment;fever;situational response * Med Student Progress Note - Estrella Ro - 06/03/2017 9:58 AM EST Neurology Progress Note Patient Name: Alvin Cat Admit Date: 06/02/2017 Attending: Washington Deluca MD Patient ID: Alvin Cat is a 71 y.o. right-handed male with a past history of insomnia, BPH, episodes of word-finding difficulties, migraine aura without headache, and remote history of encephalitis who was transferred from [facility] for acute onset receptive aphasia and severe frontal PAREDES s/p tPA, 06/02 CACO negative. Interval History: - Yesterday PM: spiked fevers of 39C + tachy, no white count; blood culture and UA obtained, broad spec abx started ceftriaxone, ampicillin, and acyclovir - 06/02 EEG: abnormal due to marked generalized slowing with additional focal higher amplitude slowing at left FT region. - 06/02 CXR: no pneumonia or acute cardiopulmonary process - Dramatic improvement of confusion, dysarthria, and PAREDES overnight, AO x 4, not yet at baseline - GOLD LEAF PRINTER today: no dysphagia or aspiration risk Medications: Scheduled Meds: ??? sodium chloride 0.9 % 5 mL Intravenous Q12H ??? docusate sodium 100 mg Oral BID ??? cefTRIAXone 2 g Intravenous Q12H ??? ampicillin 2 g Intravenous Q4H ??? acyclovir 725 mg Intravenous Q8H ??? vancomycin 1.5 g Intravenous Q18H Continuous Infusions: ??? niCARdipine ??? sodium chloride 0.9% 100 mL/hr (06/02/17 1633) PRN Meds:.flu vacc (65 yrs+) (PF), sodium chloride 0.9 %, lidocaine, labetalol, enalaprilat, niCARdipine AND Vital signs Q4H AND Cardiac Monitoring, bisacodyl, magnesium hydroxide, acetaminophen OR acetaminophen OR acetaminophen, [DISCONTINUED] vancomycin AND Vancomycin, trough AND Vancomycin Level - MAR Order Reminder Physical Exam: Vitals: Temp: [36.9 ??C (98.4 ??F)-39.1 ??C (102.4 ??F)] Heart Rate: [60-106] Resp: [13-26] BP: (109-189)/(43-107) SpO2: [95 %-100 %] Heart Rate from SPO2: [59 bpm-97 bpm] Gen: Patient of apparent stated age, well nourished, well developed, awake, alert, NAD Neck: Supple, no meningismus CV: + S1, S2, RRR, no murmur Resp: CTA B/L Abd: +normoactive bowel sounds, soft, nontender, nondistended Ext: No edema. No bony deformity Neuro Exam: MS: AAOx4, clear language with some paraphasic errors and word-finding difficulty, follows commands Repetition intact Concentration intact- spelled WORLD backwards Memory 3/3 IR, 0/3 SR, LTM intact CN: Decreased visual acuity PERRLA, EOMI, visual fitch full Facial sensation intact, no facial asymmetry Hearing grossly intact, but diminished Palate elevates symmetrically, tongue protrudes midline SCM and trap strength intact Motor: Normal bulk and tone. UE: 5/5 R, 5/5 L Arm abduction at shoulder (note R full tear of rotator cuff, L partial tear of rotator cuff) 5/5 R, 5/5 L Elbow extension 5/5 R, 5/5 L Elbow flexion 5/5 R, 5/5 L Change Room Attendant 5/5 R, 5/5 L Thumb abduction (APB) 5/5 R, 5/5 L Finger abduction LE: 5/5 R, 5/5 L Hip flexion 5/5 R, 5/5 L Knee extension 5/5 R, 5/5 L Knee flexion 5/5 R, 5/5 L Foot dorsiflexion 5/5 R, 5/5 L Foot plantar flexion Sensation: Intact to light touch Reflexes: DTRs 2+ R, 2+ L Biceps 2+ R, 2+ L Brachioradialis 2+ R, 2+ L Triceps 2+ R, 2+ L Patellar 2+ R, 2+ L Achilles tendon Toes - R mute, L mute Coordination: Finger to nose intact No tremor Gait: Unable to acess Labs: Recent Results (from the past 24 hour(s)) Basic Metabolic Panel (non-fasting) Collection Time: 06/02/17 2:35 PM Result Value Ref Range Glucose Lvl 119 65 - 199 mg/dL BUN 15 10 - 20 mg/dL Creatinine 1.22 0.80 - 1.50 mg/dL Sodium Not Perf 135 - 145 mmol/L Potassium Not Perf 3.5 - 5.0 mmol/L Chloride Not Perf 98 - 107 mmol/L CO2 20 (L) 22 - 31 mmol/L Anion Gap Unable to Calculate 5 - 15 mmol/L Calcium 8.7 8.5 - 10.5 mg/dL Estimated GFR 59 (L) >=60 Hepatic Function Panel Collection Time: 06/02/17 2:35 PM Result Value Ref Range Total Protein Not Perf 6.1 - 8.0 Albumin 4.2 3.2 - 5.2 gm/dL AST Not Perf 0 - 39 unit/L ALT Not Perf 0 - 55 Alk Phos Not Perf 40 - 120 Total Bilirubin 0.8 0.2 - 1.3 mg/dL Bili, Direct Not Perf 0.0 - 0.3 mg/dL HDL/Cholesterol Profile Collection Time: 06/02/17 2:35 PM Result Value Ref Range Chol, Total 170 <=239 mg/dL HDL 69 >=40 mg/dL Chol/HDL Ratio 2.5 ratio Chol/HDL Interpretation See Note LDL Cholesterol, Direct Collection Time: 06/02/17 2:35 PM Result Value Ref Range LDL Chol Direct 92 <=190 mg/dL Hemogram Collection Time: 06/02/17 2:35 PM Result Value Ref Range WBC 7.9 4.0 - 9.5 x10(3)/mcL RBC 4.48 (L) 4.58 - 5.54 x10(6)/mcL Hemoglobin 14.7 13.7 - 16.5 gm/dL Hematocrit 40.4 (L) 40.5 - 48.5 % MCV 90.2 82.9 - 93.1 fL MCH 32.8 (H) 27.5 - 32.1 pg MCHC 36.4 (H) 32.0 - 35.7 gm/dL Platelets 308 145 - 357 x10(3)/mcL RDWSD 42.7 36.0 - 45.0 fL RDWCV 13.0 11.4 - 13.8 % MPV 10.7 7.6 - 12.9 fL nRBC % Auto 0.0 % nRBC Abs Auto 0.000 0.000 - 0.000 x10(3)/mcL Differential, Automated Collection Time: 06/02/17 2:35 PM Result Value Ref Range Neutrophils % 83.4 % Neutr Abs (ANC) 6.63 (H) 1.70 - 6.10 x10(3)/mcL Lymphocytes % 9.2 % Lymphocytes Abs 0.7 (L) 0.9 - 3.2 x10(3)/mcL Monocytes % 5.7 % Monocyte Abs 0.4 0.3 - 0.9 x10(3)/mcL Eosinophils % 0.8 % Eosinophils Abs 0.1 0.0 - 0.4 x10(3)/mcL Basophils % 0.6 % Basophils Abs 0.0 0.0 - 0.1 x10(3)/mcL Immature Gran % 0.30 % Vianca Gran Abs 0.02 0.00 - 0.04 x10(3)/mcL Basic Metabolic Panel (non-fasting) Collection Time: 06/02/17 4:25 PM Result Value Ref Range Glucose Lvl 106 65 - 199 mg/dL BUN 16 10 - 20 mg/dL Creatinine 1.16 0.80 - 1.50 mg/dL Sodium 141 135 - 145 mmol/L Potassium 4.2 3.5 - 5.0 mmol/L Chloride 100 98 - 107 mmol/L CO2 21 (L) 22 - 31 mmol/L Anion Gap 20 (H) 5 - 15 mmol/L Calcium 9.4 8.5 - 10.5 mg/dL Estimated GFR >60 >=60 Hepatic Function Panel Collection Time: 06/02/17 4:25 PM Result Value Ref Range Total Protein 7.2 6.1 - 8.0 gm/dL Albumin 4.3 3.2 - 5.2 gm/dL AST 21 0 - 39 unit/L ALT 9 0 - 55 unit/L Alk Phos 62 40 - 120 unit/L Total Bilirubin 0.8 0.2 - 1.3 mg/dL Bili, Direct 0.2 0.0 - 0.3 mg/dL Antibody screen Collection Time: 06/02/17 4:25 PM Result Value Ref Range Ab Screen Interp Negative Expires at 3289 on: 06/05/2017 ABORH Recheck Status Collection Time: 06/02/17 4:25 PM Result Value Ref Range ABORH Type Recheck Completed ABORh Type Manual Collection Time: 06/02/17 5:51 PM Result Value Ref Range Expires at 2359 on: 06/05/2017 ABORh Type B Pos ABORH Recheck Status Collection Time: 06/02/17 5:51 PM Result Value Ref Range ABORH Type Recheck Completed Urinalysis with reflex Culture Collection Time: 06/02/17 5:56 PM Result Value Ref Range Glucose UA Negative Negative mg/dL Protein UA Negative Negative mg/dL Bilirubin UA Negative Negative mg/dL Urobilinogen UA Normal Normal mg/dL pH UA 7.0 5.0 - 8.0 Blood UA Small (A) Negative mg/dL Ketones UA 5 (A) Negative mg/dL Nitrite UA Negative Negative Leukocytes UA Negative Negative mcL Appearance UA Clear Clear Spec Murphy UA 1.026 1.002 - 1.030 Color UA Yellow Yellow Culture Reflexed No Urinalysis Microscopic Exam Collection Time: 06/02/17 5:56 PM Result Value Ref Range RBC UA 1 0 - 3 /HPF WBC UA 1 0 - 3 /HPF Squam Epith UA <1 <=4 /HPF EKG 12 Lead Collection Time: 06/02/17 6:13 PM Result Value Ref Range Ventricular rate 88 BPM Atrial Rate 88 BPM P-R Interval 156 ms QRS Duration 108 ms Q-T Interval 352 ms QTC Calculated (Bezet) 425 ms Calculated P [place] 69 degrees Calculated R [place] 11 degrees Calculated T [place] 34 degrees INTERPRETATION Normal sinus rhythm Possible Left atrial enlargement Borderline ECG When compared with ECG of 26-DEC-2011 06:01, Non-specific change in ST segment in Inferior leads Nonspecific T wave abnormality now evident in Inferior leads Confirmed by MD Simón, Jorge Harvey ([id number]) on 06/03/2017 9:39:43 AM Hemoglobin A1c Collection Time: 06/03/17 2:05 AM Result Value Ref Range Hemoglobin A1C 4.6 4.3 - 5.6 % Est Avg Gluc See note mg/dL Basic Metabolic Panel (non-fasting) Collection Time: 06/03/17 2:05 AM Result Value Ref Range Glucose Lvl 94 65 - 199 mg/dL BUN 11 10 - 20 mg/dL Creatinine 0.98 0.80 - 1.50 mg/dL Sodium 142 135 - 145 mmol/L Potassium 3.2 (L) 3.5 - 5.0 mmol/L Chloride 108 (H) 98 - 107 mmol/L CO2 21 (L) 22 - 31 mmol/L Anion Gap 13 5 - 15 mmol/L Calcium 7.2 (L) 8.5 - 10.5 mg/dL Estimated GFR >60 >=60 Hemogram Collection Time: 06/03/17 2:05 AM Result Value Ref Range WBC 8.6 4.0 - 9.5 x10(3)/mcL RBC 4.08 (L) 4.58 - 5.54 x10(6)/mcL Hemoglobin 12.8 (L) 13.7 - 16.5 gm/dL Hematocrit 37.8 (L) 40.5 - 48.5 % MCV 92.6 82.9 - 93.1 fL MCH 31.4 27.5 - 32.1 pg MCHC 33.9 32.0 - 35.7 gm/dL Platelets 260 145 - 357 x10(3)/mcL RDWSD 44.0 36.0 - 45.0 fL RDWCV 13.0 11.4 - 13.8 % MPV 9.4 7.6 - 12.9 fL nRBC % Auto 0.0 % nRBC Abs Auto 0.000 0.000 - 0.000 x10(3)/mcL Differential, Automated Collection Time: 06/03/17 2:05 AM Result Value Ref Range Neutrophils % 70.9 % Neutr Abs (ANC) 6.10 1.70 - 6.10 x10(3)/mcL Lymphocytes % 18.4 % Lymphocytes Abs 1.6 0.9 - 3.2 x10(3)/mcL Monocytes % 9.7 % Monocyte Abs 0.8 0.3 - 0.9 x10(3)/mcL Eosinophils % 0.3 % Eosinophils Abs 0.0 0.0 - 0.4 x10(3)/mcL Basophils % 0.5 % Basophils Abs 0.0 0.0 - 0.1 x10(3)/mcL Immature Gran % 0.20 % Vianca Gran Abs 0.02 0.00 - 0.04 x10(3)/mcL Consults, Diagnostic Tests, and Imaging: Consults PT/ OT/ [employer] Diagnostic Tests 06/02/17 EKG - wnl 06/02/17 EEG INTERPRETATION: This EEG is abnormal due to marked generalized slowing, with additional focal higher amplitude slowing at the left fronto-temporal region. 06/02/17 Blood Culture x2 in process 06/02/17 UA- wnl Imaging [place] 06/02/17 CT WO CONTRAST No acute intracranial process [facility] 06/02/17 CT CAROTIDS AND JENA OF NIELSEN W CONTRAST IMPRESSION 1. 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 No intracranial occlusion or severe stenosis. 2. Extensive changes of cervical spondylosis. 3. Incidental 2 cm lucent lesion in the left mandible, which appears to contain an unerupted tooth. This may represent a dentigerous cyst. Repeat CT of the face without contrast to be considered when clinically appropriate for better evaluation. [facility] 06/02 XR CHEST PA OR AP 1 VIEW IMPRESSION No pneumonia or other acute cardiopulmonary process. Assessment / Plan: Alvin Cat is a 71 y.o. male right handed male with past history of insomnia, BPH, episodes of word-finding difficulties, migraine aura without headache, and remote history of encephalitis whowas transferred from [facility] for acute onset receptive aphasia and severe frontal PAREDES now s/p tPA, [facility] and [facility] noncon CT negative for stenosis, occlusion, and acute intracranial processes. On initial exam the patient had severe receptive aphasia and bilateral frontal headache, but no other focalneurological deficits. Pt was given IV Mg with good effect for headache. Pt was found to be febrileand tachycardic overnight, and an infectious workup was started: UA was negative, blood cultures pending. Empiric broad spectrum antibiotics were started yesterday (Ceftriaxone, Ampicillin, and Acyclovir). Given the abrupt onset of symptoms, the differential includes stroke vs. seizure vs. migrainewith aura. A cardioembolic or atheroembolic stroke could be the cause of the pt's symptoms. If the cause is indeed vascular, the symptoms localize to the inferior division of the left MCA. Thus far, 06/02 nonconCT Head and CACO are negative for stroke and stenosis. We will do a repeat noncon CT Head today to monitor for change. In the context of PMH of migraine aura without headache, this episode may have been a migraine with aura. Note positive headache response to IV Mg and dramatic improvement of neurologic status after headache resolution. Encephalitis is a possibility as pt was febrile with severe headache and confusion. Infectious work up is pending. However, pt's dramatic improvement overnight is not characteristic of encephalitis. Seizure with post ictal state is another possibility that mayexplain pt's symptoms.EEG results are abnormal, but not entirely consistent with seizure. ? # Aphasia - Permissive HTN, treat SBP >180/105 with prn labetalol and enalaprilat - f/u Blood cultures for infectious work up, continue broad spectrum infectious coverage for now - f/u CT Head WO contrast - start aspirin 81mg - MRI brain wo contrast - LDL = 92, consider statin - consider TTE - Telemetry - CTA head & neck completed - EEG completed - PT/OT/[employer] ? # Prophylaxis - RBOs - SCDs - consider heparin pending results of noncon CT head ? # Supportive care - Regular diet - Trend and replete lytes prn - Remove astudillo - Tylenol PRN - Up with assistance Dispo: transfer to floor ? # FULL code ?? Eyitemi Y Jayjay MS4 06/03/2017 * Plan of Care - Anette Gimenez, [employer] - 06/03/2017 9:07 AM EST Problem: Patient Care Overview Goal: Plan of Care Review Outcome: Ongoing (Interventions Implemented as Appropriate) 06/03/17 0856 Coping/Psychosocial Plan Of Care Reviewed With patient Plan of Care Review Progress improving SPEECH-LANGUAGE PATHOLOGY Bedside Swallow Study / Speech-Language Eval ASSESSMENT: Pt oral motor and swallow function appears WNL. No dysphagia or aspiration risk identified. Please see the Rehab Evaluation Summaries report for objective data and specifics of today???s session. Oral Peripheral Examination WFL; labial, buccal, lingual, jaw and velar ROM, strength, sensation all adequate Laryngeal elevation adequate Gag intact Speech Production & Voice Normal voicing noted Difficulties Observed: ?? Motor planning (occasional errors w/ repetition) Receptive Language ?? Simple / Complex yes / no ?'s: /5; 4/5 ?? Identifying body parts: 5 ?? Identifying objects in room: 11/01 ?? Following 1-step / 2-step / 3-step directives: 11/01; 5 2/5 ?? Comprehending multi-sentence statements: 5; needs some repetition / clarification w/ complex statements; pt independent in requesting clarification ?? Reading comprehension: DNT Expressive Language ?? Automatic speech: 1-10, days of week, months of year: Intact ?? Repetition of words / sentences: Some errors / jargon noted w/ repetition of longer phrases / sentences ?? Confrontation namin/10; some hesitaitons ?? Responsive namin/5; some hesitations ?? Open-ended ?'s: Frequent stops, hesitations, unsuccessful attempts at self cueing and circumlocution; pt expresses awareness and frustration I know what I want to say but I get lost in saying it ?? Syntax & Grammar: intact ?? Circumlocution (attempting) ?? Jargon (occasionally noted) ?? Pragmatics: intact Cognition: ?? Alert, able to focus on speaker / task; behavior appropriate, oriented, aware of errors most of time ; good insight/judgement noted; difficulty w/ verbal problem solving tasks (appears related to expressive aphasia rather than reasoning) RECOMMENDATIONS: ?? Pt will be seen for 2-4/wk during acute hospitalization for aphasia ?? Diet: regular ?? Pt will likely benefit from additional [employer] tx upon DC from acute care setting unless asphasia spontaneously resolves. Anette Gimenez MA, [facility] Speech-Language Pathologist Rehabilitation Medicine [phone] Pager #[phone] Problem: Acute Rehab Services Goal & Intervention Plan Goal: Communication Goal Stand Alone Therapy Goal Outcome: Ongoing (Interventions Implemented as Appropriate) 06/03/17 0856 Communication Goal Communication Goal, Date Established 06/03/17 Communication Goal, Time to Achieve by discharge Communication Goal, Activity Type Pt will name 10 members of a category in 1 minute Communication Goal, Additional Goal Pt will describe similarities/differences b/t 2 objects w/o hesitation / word finding difficulty Goal: Dysphagia Goal Stand Alone Therapy Goal Outcome: Ongoing (Interventions Implemented as Appropriate) 06/03/17 0856 Dysphagia Goal Dysphagia Goal, Date Established 06/03/17 Dysphagia Goal, Time to Achieve 1 day Oral Nutritional Level Goal safely tolerates/maintains adequate oral nutrition;no signs/symptoms ofaspiration present Dysphagia Goal, Outcome goal ongoing * Plan of Care - Conrado Yang RN - 06/03/2017 4:56 AM EST Problem: Patient Care Overview Goal: Plan of Care Review Outcome: Ongoing (Interventions Implemented as Appropriate) 06/02/171999 Coping/Psychosocial Plan Of Care Reviewed With patient OUTCOME EVALUATION NOTE: OUTCOME SUMMARY: K low at 3.2, replaced with Mg IV. Skin intact. Cyst on back. TPA neuro monitoring. Receptive aphasia resolved. Pt following commands x4. Pt with expressive aphasia intermittently, sometimes able to state name, object identification, and intermittent clear sentences. Not consistent. Denies pain. Pton RA, resp intact. Febrile to 39, resolving during shift. IV abx continued. Normothermic now. HD stable otherwise. Tolerating po fluids and pills okay. Astudillo with clear yellow urine, intermittent low urine output, team aware. Will continue to monitor. PLAN MOVING FORWARD: Monitor neuro status Diet MRI INDIVIDUALIZED FALL PREVENTION INTERVENTIONS: Patient-specific fall risk factors per assessment: [current deficits]: Icu; lines/drains/tubes; neuro Assistance [level of assistance required for transfers and ambulation]: 2 assist Supervision [direct monitoring required during toileting and ADLs]: Hands on assist with adls Surveillance [continuous indirect monitoring]: cuca ecg; o2 sat Patient-specific fall prevention interventions for sensory deficits provided, if applicable: [X] Yes CPG GOAL OUTCOME EVALUATION: Goal: Individualization & Mutuality Outcome: Ongoing (Interventions Implemented as Appropriate) 06/03/17446 Mutuality/Individual Preferences What Anxieties, Fears or Concerns Do You Have About Your Health or Care? hernan What Questions Do You Have About Your Health or Care? hernan What Information Would Help Us Give You More Personalized Care? hernan Goal: Fall Prevention-Safe Patient Handling Outcome: Ongoing (Interventions Implemented as Appropriate) 06/02/17199906/03/17 0400 Aquino Fall Risk History of Falling 0 -- Secondary Diagnosis 15 -- Ambulatory Aids 0 -- Intravenous Therapy/Heparin/Saline Lock 20 -- Gait/Transferring 0 -- Mental Status 15 -- Score 50 -- OTHER Aquino Fall Risk High -- Restraint Interventions Safety Promotion/Fall Prevention safety round/check completed -- Positioning Body Position -- independent Goal: Infection Control Outcome: Ongoing (Interventions Implemented as Appropriate) 06/02/17199906/03/17 0400 Safety Interventions Isolation Precautions -- standard precautions maintained Infection Prevention single patient room provided -- Coping Strategies Supportive Measures relaxation techniques promoted -- Goal: Discharge Needs Assessment Outcome: Ongoing (Interventions Implemented as Appropriate) 06/03/17 0449 Living Environment Transportation Available other (see comments) Goal: Interdisciplinary Rounds/Family Conf Outcome: Ongoing (Interventions Implemented as Appropriate) 06/03/17450 Interdisciplinary Rounds/Family Conf Participants nursing;physician;patient Problem: Stroke (Ischemic) (Adult) Goal: Signs and Symptoms of Listed Potential Problems Will be Absent, Minimized or Managed (Stroke) Signs and symptoms of listed potential problems will be absent, minimized or managed by discharge/transition of care (reference Stroke (Ischemic) (Adult) CPG). Outcome: Ongoing (Interventions Implemented as Appropriate) 06/03/17450 Stroke (Ischemic) Problems Assessed (Stroke (Ischemic)/TIA) all Problems Present (Stroke (Ischemic)/TIA) acute neurologic deterioration;cognitive impairment;communication impairment;fever;situational response * Consult Note - Yessi Koehler [facility] - 06/02/2017 5:55 PM EST Clinical Pharmacist Note-Vanc Alvin Cat [id number] 1945 Alvin Cat is a 71 y.o. male is being monitored due to antibiotic therapy which includes intravenous vancomycin. 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 Based on this information a loading dose of 2000 mg followed by 1500 mg every 18 hours, to startnow should achieve an estimated trough level of 15 - 20 mcg/mL. Monitoring recommendations: ?? A new steady state level should be achieved after 4 half-lives or sooner if renal function worsens. We will continue to monitor the patient as long as he remains on vancomycin therapy. Please watch SCr, BUN and fluid status closely. Please page the care area pharmacist with any questions you may have. Alternately, during off-hours you may call [phone] to contact a pharmacist. YESSI KOEHLER RPH Pager [phone] documented in this encounter Plan of Treatment Not on file documented as of this encounter Procedures Procedure Name Priority Date/Time Associated Diagnosis Comments FACILITY DESIGNER SCAN 06/05/2017 12:00 AM EST MRI BRAIN WWO CONTRAST (GENERIC) Routine 06/04/2017 10:45 AM EST HEMOGRAM Routine 06/04/2017 5:02 AM EST DIFFERENTIAL, AUTOMATED Routine 06/04/2017 5:02 AM EST CBC (WITH DIFF) Routine 06/04/2017 5:02 AM EST BASIC METABOLIC PANEL Routine 06/04/2017 5:[address] HEAD WO CONTRAST (GENERIC) Routine 06/03/2017 2:33 PM EST HEMOGRAM Routine 06/03/2017 2:05 AM EST DIFFERENTIAL, AUTOMATED Routine 06/03/2017 2:05 AM EST CBC (WITH DIFF) Routine 06/03/2017 2:05 AM EST HEMOGLOBIN A1C Routine 06/03/2017 2:05 AM EST BASIC METABOLIC PANEL Routine 06/03/2017 2:05 AM EST ZEEG AWAKE, ASLEEP, DROWSY Routine 06/02/2017 8:45 PM EST XR CHEST ONE VIEW Routine 06/02/2017 6:4 1 PM EST EKG 12-LEAD Routine 06/02/2017 6:13 PM EST Cerebrovascular accident (CVA), unspecified mechanism URINALYSIS MICROSCOPIC EXAM Routine 06/02/2017 5:56 PM EST URINALYSIS WITH REFLEX CULTURE Routine 06/02/2017 5:56 PM EST ABORH RECHECK STATUS Routine 06/02/2017 5:51 PM EST ABORH TYPE MANUAL Routine 06/02/2017 5:5 1 PM EST BLOOD CULTURE STAT 06/02/2017 5:35 PM EST BLOOD CULTURE STAT 06/02/2017 5:30 PM EST ABORH RECHECK STATUS STAT 06/02/2017 4:25 PM EST ANTIBODY SCREEN STAT 06/02/2017 4:25 PM EST TYPE AND SCREEN ([facility]/KARUNA) STAT 06/02/2017 4:25 PM EST HEPATIC FUNCTION PANEL Routine 06/02/2017 4:25 PM EST BASIC METABOLIC PANEL Routine 06/02/2017 4:25 PM EST HEMOGRAM STAT 06/02/2017 2:35 PM EST DIFFERENTIAL, AUTOMATED STAT 06/02/2017 2:35 PM EST CBC (WITH DIFF) STAT 06/02/2017 2:35 PM EST LDL CHOLESTEROL, DIRECT Routine 06/02/2017 2:35 PM EST HDL/CHOL PROFILE Routine 06/02/2017 2:35 PM EST HEPATIC FUNCTION PANEL Routine 06/02/2017 2:35 PM EST BASIC METABOLIC PANEL STAT 06/02/2017 2:[address] CAROTIDS AND JENA OF NIELSEN W CONTRAST Routine 06/02/2017 2:03 PM EST FILM LIBRARY STORAGE ONLY DX CHEST Routine 06/02/2017 12:00 AM EST Pain FILM LIBRARY STORAGE ONLY CT HEAD Routine 06/01/2017 12:00 AM EST Pain documented in this encounter Results * SCAN DOC: FACILITY DESIGNER (06/05/2017 12:00 AM EST) Anatomical Region Laterality Modality Other Narrative 06/05/2017 12:00 AM EST Ordered by an unspecified provider. Scanning Provider MEDIA MGR SCAN EXT O RDR/RSLT * MRI Brain wwo Contrast (Generic) (06/04/2017 10:45 AM EST) Anatomical Region Laterality Modality Head Magnetic Resonan ce Impressions 06/04/2017 11:28 AM EST No evidence for recent infarction, hemorrhage or encephalitis. Narrative 06/04/2017 11:28 AM EST EXAMINATION: MRI BRAIN WWO CONTRAST (GENERIC) CLINICAL HISTORY: acute onset aphasia s/p tPA with fevers and question of encephalitis TECHNIQUE: Routine MRI of the brain was performed before and after the intravenous administration of 16 mL Dotarem COMPARISON: CT head 06/03/2017 FINDINGS: Generalized parenchymal volume loss with commensurate enlargement of ventricles and widening of the sulci. There are scattered punctate foci of subcortical and mild confluent periventricular white matter signal alteration likely reflecting the mild sequela of chronic microangiopathy. No mass effect, midline shift or extra-axial collection. No evidence for recent infarction or abnormal enhancement. No abnormal susceptibility related signal loss to suggest acute hemorrhage. The midline sagittal structures are normal in appearance. Regional bone marrow demonstrates no evidence for aggressive marrow replacing process. Mild paranasal sinus mucosal thickening. The mastoid air cells are clear. The orbits are normal in appearance. Major intracranial vascular flow voids are normal. Procedure Note Silvia Banks MD - 06/04/2017 EXAMINATION: MRI BRAIN WWO CONTRAST (GENERIC) CLINICAL HISTORY: acute onset aphasia s/p tPA with fevers and questionof encephalitis TECHNIQUE: Routine MRI of the brain was performed before and after the intravenous administration of 16 mL Dotarem COMPARISON: CT head 06/03/2017 FINDINGS: Generalized parenchymal volume loss with commensurateenlargement of ventricles and widening of the sulci. There are scattered punctate fociof subcortical and mild confluent periventricular white matter signalalteration likely reflecting the mild sequela of chronic microangiopathy. No masseffect, midline shift or extra-axial collection. No evidence for recent infarctionor abnormal enhancement. No abnormal susceptibility related signal loss tosuggest acute hemorrhage. The midline sagittal structures are normal inappearance. Regional bone marrow demonstrates no evidence for aggressive marrowreplacing process. Mild paranasal sinus mucosal thickening. The mastoid air cellsare clear. The orbits are normal in appearance. Major intracranial vascularflow voids are normal. IMPRESSION No evidence for recent infarction, hemorrhage or encephalitis. Washington Deluca MD [facility] [place] ORDERABLES * Differential, Automated (06/04/2017 5:02 AM EST) Neutrophil % 61.3 % [facility] Neutrophil Absolute 3.25 1.70 - 6.10 x10(3)/[facility] LABOR[facility] Lymph % 24.0 % [facility] Lymphocytes Abs 1.3 0.9 - 3.2 x10(3)/[facility] LABOR[facility]ORY Monocyte % 9.5 % [facility] Monocyte Abs 0.5 0.3 - 0.9 x10(3)/[facility]OR[facility]ORY Eos % 4.2 % [facility] Eosinophils Abs 0.2 0.0 - 0.4 x10(3)/[facility] LABOR[facility]ORY Basophil % 0.8 % [facility] Baso Absolute 0.0 0.0 - 0.1 x10(3)/[facility] LABOR[facility]ORY Immature Gran % 0.20 % [facility] Comment: Immature granulocytes(IG's)percentage and absolute count will include metamyelocytes, myelocytes, and promyelocytes. Blood smears from CBCs yielding IG's will be scanned manually for concordance. If this scan disagrees with the automated IG or if promyelocytes are noted, a manual differential will be performed. Immature Gran Absolute 0.01 0.00 - 0.04 x10(3)/[facility] LABORATORY Blood specimen (specimen) 06/04/2017 5:02 AM EST 06/04/2017 5:20 AM EST Narrative Resulting Agency Comment Spec In Lab Washington Deluca MD HEMATOLOGY ORDERAB LES [facility] [place] [address] * (ABNORMAL) Hemogram (06/04/2017 5:02 AM EST) White Blood Cell 5.3 4.0 - 9.5 x10(3)/[facility] LABORATORY Red Blood Cell 3.98(L) 4.58 - 5.54 x10(6)/[facility] LABORATORY Hemoglobin 12.8(L) 13.7 - 16.5 gm/dL [facility] Hematocrit 36.8(L) 40.5 - 48.5 % [facility] Mean Cell Volume 92.5 82.9 - 93.1 [facility] Mean Cell Hemoglobin 32.2(H) 27.5 - 32.1 pg [facility] Mean Cell Hemoglobin Concentration 34.8 32.0 - 35.7 gm/dL [facility] Platelet 232 145 - 357 x10(3)/[facility] LABORATORY RDW Standard Deviation 44.6 36.0 - 45.0 [facility] RDW coefficient of variation 13.0 11.4 - 13.8 % [facility] Mean Platelet Volume 9.8 7.6 - 12.9 [facility] NRBC% auto 0.0 % [facility] NRBC Absolute 0.000 0.000 - 0.000 x10(3)/[facility] LABOR[facility]ORY Blood specimen (specimen) 06/04/2017 5:02 AM EST 06/04/2017 5:20 AM EST Narrative Resulting Agency Comment Spec In Lab Washington Deluca MD HEMATOLOGY ORDERAB LES [facility] [place] [address] * (ABNORMAL) Basic Metabolic Panel (non-fasting) (06/04/2017 5:02 AM EST) Glucose 96 65 - 199 mg/dL [facility] Comment:Diabetes: >=200 mg/d L plus symptoms Blood Urea Nitrogen 12 10 - 20 mg/dL [facility] Creatinine 1.03 0.80 - 1.50 mg/dL [facility] Sodium 140 135 - 145 mmol/L [facility] Potassium 3.9 3.5 - 5.0 mmol/L [facility] Comment: Please note: ??Patients with WBC >100,000 may have falsely elevated Potassium levels. ??For accurate Potassium quantification in these patients send serum separator tube (gold top) for subsequent determinations. ??Contact the Clinical Chemistry Laboratory if there are any questions. Chloride 107 98 - 107 mmol/L [facility] Carbon Dioxide 21(L) 22 - 31 mmol/L [facility] Anion Gap 12 5 - 15 mmol/L [facility] Calcium 8.2(L) 8.5 - 10.5 mg/dL [facility] Comment:result rechecked-RR Est Glomerular Filtration Rate >60 >=60 [facility] Comment: The reported eGFR should be multiplied by 1.2 for patients. The MDRD is not an appropriate measure of renal function for patients with body mass extremes or in patients with acute kidney failure. http://Metail.Novint/DHnkdep http://TruckTrack/DHMCnkf Blood specimen (specimen) 06/04/2017 5:02 AM EST 06/04/2017 5:20 AM EST Narrative Resulting Agency Comment Spec In Lab Washington Deluca MD CHEMISTRY ORDERABL ES [facility] [place] [address] * CT Head wo Contrast (Generic) (06/03/2017 2:33 PM EST) Anatomical Region Laterality Modality Head Computed Tomogra phy Impressions 06/03/2017 4:54 PM EST No acute intracranial hemorrhage. I have personally reviewed the image(s) and the residents interpretation and agree with the findings, Jacob Godoy at 06/03/2017 4:54 PM Narrative 06/03/2017 4:54 PM EST EXAMINATION: CT HEAD WO CONTRAST (GENERIC) CLINICAL HISTORY: patient had aphasia, received tPA, assess for hemorrhage, changes TECHNIQUE: CT head without contrast COMPARISON: Head CT from 06/02/2017 FINDINGS: No acute intracranial hemorrhage. No mass, mass effect, or midline shift. No extra-axial fluid collection. The ward-white matter differentiation is maintained. The basal cisterns are patent. The ventricles are unchanged. The orbits are unremarkable. The paranasal sinuses and mastoid air cells are clear. There is an unerupted left maxillary molar which partially extends into the maxillary sinus. Procedure Note Jacob Godoy MD - 06/03/2017 EXAMINATION: CT HEAD WO CONTRAST (GENERIC) CLINICAL HISTORY: patient had aphasia, received tPA, assess forhemorrhage, changes TECHNIQUE: CT head without contrast COMPARISON: Head CT from 06/02/2017 FINDINGS: No acute intracranial hemorrhage. No mass, mass effect, or midline shift.No extra-axial fluid collection. The ward-white matter differentiation is maintained. The basal cisterns are patent. The ventricles are unchanged.The orbits are unremarkable. The paranasal sinuses and mastoid air cells areclear. There is an unerupted left maxillary molar which partially extends intothe maxillary sinus. IMPRESSION No acute intracranial hemorrhage. I have personally reviewed the image(s) and the residents interpretationand agree with the findings, Jacob Godoy at 06/03/2017 4:54 PM Washington Deluca MD IMG CT ORDERABLES * Differential, Automated (06/03/2017 2:05 AM EST) Neutrophil % 70.9 % [facility] Neutrophil Absolute 6.10 1.70 - 6.10 x10(3)/[facility] LABOR[facility]ORY Lymph % 18.4 % [facility] Lymphocytes Abs 1.6 0.9 - 3.2 x10(3)/[facility] LABOR[facility]ORY Monocyte % 9.7 % [facility] Monocyte Abs 0.8 0.3 - 0.9 x10(3)/[facility] LABOR[facility]ORY Eos % 0.3 % [facility] Eosinophils Abs 0.0 0.0 - 0.4 x10(3)/[facility] LABORATORY Basophil % 0.5 % [facility] Baso Absolute 0.0 0.0 - 0.1 x10(3)/[facility] LABORATORY Immature Gran % 0.20 % [facility] Comment: Immature granulocytes(IG's)percentage and absolute count will include metamyelocytes, myelocytes, and promyelocytes. Blood smears from CBCs yielding IG's will be scanned manually for concordance. If this scan disagrees with the automated IG or if promyelocytes are noted, a manual differential will be performed. Immature Gran Absolute 0.02 0.00 - 0.04 x10(3)/[facility] Blood specimen (specimen) 06/03/2017 2:05 AM EST 06/03/2017 2:09 AM EST Narrative Resulting Agency Comment Spec In Lab Washington Deluca MD HEMATOLOGY ORDERAB LES [facility] [place] [address] * (ABNORMAL) Hemogram (06/03/2017 2:05 AM EST) [facility] [address] White Blood Cell 8.6 4.0 - 9.5 x10(3)/[facility] LABORAT[facility] Red Blood Cell 4.08(L) 4.58 - 5.54 x10(6)/mc L [facility] Hemoglobin 12.8(L) 13.7 - 16.5 gm/dL [facility] Hematocrit 37.8(L) 40.5 - 48.5 % [facility] Mean Cell Volume 92.6 82.9 - 93.1 fL [facility] Mean Cell Hemoglobin 31.4 27.5 - 32.1 pg [facility] Mean Cell Hemoglobin Concentration 33.9 32.0 - 35.7 gm/dL [facility] Platelet 260 145 - 357 x10(3)/[facility] LABORATORY RDW Standard Deviation 44.0 36.0 - 45.0 [facility] RDW coefficient of variation 13.0 11.4 - 13.8 % [facility] Mean Platelet Volume 9.4 7.6 - 12.9 [facility] NRBC% auto 0.0 % [facility] NRBC Absolute 0.000 0.000 - 0.000 x10(3)/[facility] Blood specimen (specimen) 06/03/2017 2:05 AM EST 06/03/2017 2:09 AM EST Narrative Resulting Agency Comment Spec In Lab Washington Deluca MD HEMATOLOGY ORDERAB LES [facility] [place] [address] * (ABNORMAL) Basic Metabolic Panel (non-fasting) (06/03/2017 2:05 AM EST) [facility] [address] Glucose 94 65 - 199 mg/dL [facility] Comment:Diabetes: >=200 mg/d L plus symptoms Blood Urea Nitrogen 11 10 - 20 mg/dL [facility] Creatinine 0.98 0.80 - 1.50 mg/dL [facility] Sodium 142 135 - 145 mmol/L [facility] Potassium 3.2(L) 3.5 - 5.0 mmol/L [facility] Comment: Please note: ??Patients with WBC >100,000 may have falsely elevated Potassium levels. ??For accurate Potassium quantification in these patients send serum separator tube (gold top) for subsequent determinations. ??Contact the Clinical Chemistry Laboratory if there are any questions. Chloride 108(H) 98 - 107 mmol/L [facility] Carbon Dioxide 21(L) 22 - 31 mmol/L [facility] Anion Gap 13 5 - 15 mmol/L [facility] Calcium 7.2(L) 8.5 - 10.5 mg/dL [facility] Comment:result rechecked-[facility] Est Glomerular Filtration Rate >60 >=60 [facility] Comment: The reported eGFR should be multiplied by 1.2 for patients. The MDRD is not an appropriate measure of renal function for patients with body mass extremes or in patients with acute kidney failure. http://Metail.Novint/DHnkdep http://TruckTrack/DHMCnkf Blood specimen (specimen) 06/03/2017 2:05 AM EST 06/03/2017 2:09 AM EST Narrative Resulting Agency Comment Spec In Lab Washington Deluca MD CHEMISTRY ORDERABL ES [facility] [place] [address] * Hemoglobin A1c (06/03/2017 2:05 AM EST) Hemoglobin A1c 4.6 4.3 - 5.6 % [facility] Comment: Reference Range: 4.3 - 5.6% 5.7 - 6.4% - Increased Risk of Developing Diabetes Mellitus >=6.5% - Consistent with diagnosis of Diabetes Mellitus In the absence of hyperglycemia (i.e. plasma glucose > 200 mg/dL) or classic symptoms of hyperglycemia a repeat measurement of HbA1c should be performed on a separate sample to confirm the diagnosis. Diagnosis and Classification of Diabetes Mellitus, Diabetes Care 2013; 36: Suppl. 1, Q65-40 Estimated Average Glucose See note mg/dL [facility] Comment: Estimated Average Glucose not appropriate for patients over 70 years of age. eAG equivalents for HbA1c percentages: HbA1c(%) ?eAG(mg/dL) 6.0 ?126 6.5 ?140 7.0 ?154 7.5 ?169 8.0 ?183 8.5 ?197 9.0 ?212 9.5 ?226 10.0 ? 240 Limitations: The eAG calculation has not been validated on women, individuals below 18 years old and above 70 years old, and individuals with hemoglobinopathies. Additional resources are available on the ADA website. Dinh CHRISTIANSEN, Sanjuana J, Maggi R, et al. ??Translating the A1C assay into estimated average glucose values. ??Diabetes Care 2008:31(8):5824-5319. Blood specimen (specimen) 06/03/2017 2:05 AM EST 06/03/2017 2:09 AM EST Narrative Resulting Agency Comment Spec In Lab Washington Deluca MD CHEMISTRY ORDERABL ES [facility] [place] [address] * EEG awake, asleep, drowsy, routine (06/02/2017 8:45 PM EST) Narrative Ronan Fontanez Jr., MD - 06/02/2017 8:45 PM Ronan Ku Jr., MD ? 06/02/2017 ??8:45 PM [facility] Department of Neurology Inpatient EEG Report Name of the Patient: ??Alvin Cat Date of : ?1945 Date of Service: ?06/02/2017 Referring physician: ?Adnrew De La O M.D. BRIEF HISTORY: Alvin Cat is a 71 y.o. year old patient with AMS. MEDICATIONS: Current Facility-Administered Medications Medication Dose Route Frequency Provider Last Rate Last Dose ? ? sodium chloride 0.9 % flush 5 mL ??5 mL Intravenous Q12H Prosper Laura MD ?? 5 mL at 06/02/17 1330 ? ? sodium chloride 0.9 % flush 5-20 mL ??5-20 mL Intravenous Q1 Min PRN Prosper Laura MD ? lidocaine (XYLOCAINE) 10 mg/mL (1 %) injection 3 mg ??0.3 mL Subcutaneous Once PRN Prosper Laura MD ? labetalol (NORMODYNE,TRANDATE) injection 10-20 mg ??10-20 mg Intravenous Q15 Min PRN Prior, Andrew Richter MD ? enalaprilat (VASOTEC) injection ??1.25 mg Intravenous Q6H PRN , Andrew Richter MD ? niCARdipine 0.2 mg/mL (standard Adult and Pedi greater than 20 kg) infusion ??0-15 mg/hr Intravenous Continuous PRN Prior, Andrew Richter MD ? docusate sodium (COLACE) capsule 100 mg ??100 mg Oral BID Prior, Andrew Richter MD ? bisacodyl (DULCOLAX) suppository 10 mg ??10 mg Rectal Daily PRN Prior, Andrew Richter MD ? magnesium hydroxide (MILK OF MAGNESIA) oral suspension 10 mL ?? 10 mL Oral Daily PRN Prior, Andrew Richter MD ? acetaminophen (TYLENOL) tablet 975 mg ??975 mg Oral Q6H PRN Prior, Andrew Richter MD ? Or ? ? acetaminophen (TYLENOL) 650 mg/20.3 mL oral liquid 975 mg ??975 mg Per G Tube Q6H PRN Prior, Andrew Richter MD ?? 975 mg at 06/02/17 1815 Or ? ? acetaminophen (TYLENOL) suppository 975 mg ??975 mg Rectal Q6H PRN Prior, Andrew Richter MD ? sodium chloride 0.9% infusion ??100 mL/hr Intravenous Continuous Prior, Andrew Richter MD 100 mL/hr at 06/02/17 1633 100 mL/hr at 06/02/17 1633 ? ? Vancomycin Level - MAR Order Reminder ?? NOT APPLICABLE Per Pharmacy Prosper Laura MD ? cefTRIAXone (ROCEPHIN) 2g in dextrose 5% 50mL ??2 g Intravenous Q12H Prosper Laura MD ?? Stopped at 06/02/17 191 ? ? ampicillin 2g vial attach to sodium chloride 0.9% 100 mL Mini-Bag Plus ??2 g Intravenous Q4H Prosper Laura MD ?? Stopped at 06/02/171826 ? ? acyclovir (ZOVIRAX) 725 mg in sodium chloride 0.9% 264.5 mL ?? 725 mg Intravenous Q8H Prosper Laura MD 264.5 mL/hr at 06/02/17 192 725 mg at 06/02/171923 ? ? vancomycin 2 g in sodium chloride 0.9% 500 mL ??2 g Intravenous Once Washington Deluca MD ? [START ON 06/03/2017] vancomycin 1.5 g in sodium chloride 0.9% 250 mL ??1.5 g Intravenous Q18H Washington Deluca MD ? METHODS: A 21 channel digitized electroencephalogram was performed in the [facility] Clinical Neurophysiology Laboratory. The 10/20 international system of electrode placement was used and bipolar and referential electrode montages were recorded. ??In addition to EEG the patient was monitored for EKG and lateral/vertical eye movements. Video was recorded during the session. The duration of the recording was 30 minutes. CODER OPERATOR'S REPORT: Performed by: SB Patient was not sleep deprived. Sleep was not attained. Photic stimulation was performed. Hyperventilation was not performed. Effort was was not adequate. Movement and other artifact was not significant. Comments:HV was not performed due to the question of CVA and pt could not follow commands as well. ELECTROENCEPHALOGRAPHER'S REPORT: Background The background is comprised of continuous polymorphic 1-2Hz activity admixed with diffuse beta. ??No discernable posterior reactive rhythm is noted. ??Waveforms from the left fronto-temporal region are slightly more prominent delta activity. Sleep No electrographic evidence of stage II sleep was seen. Hyperventilation Hyperventilation was not performed. Photic Stimulation Photic stimulation using a step-eng increase in photic frequency varying from 1-21Hz was performed without the appearance of abnormal activity. Abnormal EEG Activity Diffuse slowing, additional left fronto-temporal slowing. EKG The precordial tracing revealed a regular rhythm with physiologic variation. PRIOR EEG: No previous EEG reports were readily available. INTERPRETATION: This EEG is abnormal due to marked generalized slowing, with additional focal higher amplitude slowing at the left fronto-temporal region. CLINICAL CORRELATION: This EEG is consistent with marked diffuse or multifocal dysfunction, with superimposed left fronto-temporal dysfunction. ?? This latter observation may reflect an underlying structural abnormality or post-ictal slowing. ??No frankly epileptiform features are seen. Ronan Fontanez MD, PhD Department of Neurology Personal Pager #[phone] 06/02/2017 8:37 PM Washington Deluca MD NEUROLOGY ORDERABL ES * XR Chest PA or AP 1 view (06/02/2017 6:41 PM EST) Anatomical Region Laterality Modality Chest N/A Digital Radiogra phy Impressions 06/02/2017 6:43 PM EST No pneumonia or other acute cardiopulmonary process. Narrative 06/02/2017 6:43 PM EST EXAMINATION: XR CHEST PA OR AP 1 VIEW CLINICAL HISTORY: 71M, new onset fever and AMS, r/o acute pulm process TECHNIQUE: Portable AP semiupright chest COMPARISON: Chest radiograph and chest CT 12/26/2011 FINDINGS: There are slightly lower lung volumes but otherwise the lungs are clear. The cardiomediastinal silhouette is stable. No pleural effusion, pneumothorax or significant bone abnormality is seen. Procedure Note Jesse De Leon MD - 06/02/2017 EXAMINATION: XR CHEST PA OR AP 1 VIEW CLINICAL HISTORY: 71M, new onset fever and AMS, r/o acute pulm process TECHNIQUE: Portable AP semiupright chest COMPARISON: Chest radiograph and chest CT 12/26/2011 FINDINGS: There are slightly lower lung volumes but otherwise the lungs are clear.The cardiomediastinal silhouette is stable. No pleural effusion, pneumothoraxor significant bone abnormality is seen. IMPRESSION No pneumonia or other acute cardiopulmonary process. Washington Deluca MD IMG DX ORDERABLES * EKG 12 Lead (06/02/2017 6:13 PM EST) Ventricular rate 88 BPM MUSE SYSTEM Atrial Rate 88 BPM MUSE SYSTEM P-R Interval 156 ms MUSE SYSTEM QRS Duration 108 ms MUSE SYSTEM Q-T Interval 352 ms MUSE SYSTEM QTC Calculated (Bezet) 425 ms MUSE SYSTEM Calculated P [place] 69 degrees MUSE SYSTEM Calculated R [place] 11 degrees MUSE SYSTEM Calculated T [place] 34 degrees MUSE SYSTEM INTERPRETATION Normal sinus rhythm Possible Left atrial enlargement Borderline ECG When compared with ECG of 26-DEC-2011 06:01, Non-specific change in ST segment in Inferior leads Nonspecific T wave abnormality now evident in Inferior leads Confirmed by MD Gr Gregory A. ([id number]) on 06/03/2017 9:39:43 AM MUSE SYSTEM 06/02/2017 6:13 PM EST 06/03/2017 9:39 AM EST Washington Deluca MD ECG ORDERABLES MUSE SYSTEM * Urinalysis Microscopic Exam (06/02/2017 5:56 PM EST) RBC, Urine 1 0 - 3 /HPF [facility] WBC, Urine 1 0 - 3 /HPF [facility] Squamous Epithelial Cells Raw Data, Urine <1 <=4 /HPF [facility] Urine specimen obtained via indwelling urinary catheter (specimen) 06/02/2017 5:56 PM EST 06/02/2017 6:20 PM EST Narrative Resulting Agency Comment Spec In Lab Washington Deluca MD URINE ORDERABLES [facility] [place] [address] * (ABNORMAL) Urinalysis with reflex Culture (06/02/2017 5:56 PM EST) Glucose, Urine Dipstick Negative Negative mg/dL [facility] Protein, Urine Dipstick Negative Negative mg/dL [facility] Bilirubin, Urine Dipstick Negative Negative mg/dL [facility] Comment: Clinical correlation required for positive Urine Bilirubin results as false positive may occur with some drugs and drug related products. If a false positive is suspected a serum total bilirubin should be considered if clinically indicated. Urobilinogen, Urine Dipstick Normal Normal mg/dL [facility] pH, Urn (dipstick) 7.0 5.0 - 8.0 [facility] Blood, Urine Dipstick Small(A) Negative mg/dL [facility] Ketone, Urine Dipstick 5(A) Negative mg/dL [facility] Nitrite, Urine Dipstick Negative Negative [facility] Leukocytes, Urine Dipstick Negative Negative mcL [facility] Appearance, Urine Dipstick Clear Clear [facility] Specific Murphy Urine Automated 1.026 1.002 - 1.030 [facility] Color, Urine Dipstick Yellow Yellow [facility] Reflex to Culture No [facility] Urine specimen obtained via indwelling urinary catheter (specimen) 06/02/2017 5:56 PM EST 06/02/2017 6:20 PM EST Narrative Resulting Agency Comment Spec In Lab Washington Deluca MD URINE ORDERABLES Performing Organization Address City/[facility]/ZIP Co de Phone Number [facility] [place] [address] * ABORH Recheck Status (06/02/2017 5:51 PM EST) ABORH Type Recheck Completed [facility] Blood specimen (specimen) Venous Draw / Unknown 06/02/2017 5:51 PM EST 06/02/2017 5:51 PM EST Narrative Resulting Agency Comment Spec In Lab Prosper Laura MD BLOOD BANK LAB OR DERABLES Performing Organization Address [facility]/ZIP Co de Phone Number [facility] [place] [address] * ABORh Type Manual (06/02/2017 5:51 PM EST) Expires at [id number] on: 06/05/2017 [facility] ABORH Type B Pos [facility] Blood specimen (specimen) Venous Draw / Unknown 06/02/2017 5:51 PM EST 06/02/2017 5:51 PM EST Narrative Resulting Agency Comment Spec In Lab Prosper Laura MD BLOOD BANK LAB OR DERABLES Performing Organization Address [facility]/ZIP Co de Phone Number [facility] [place] [address] * Blood culture (06/02/2017 5:35 PM EST) Blood Culture No growth at 5 days. [facility] Blood specimen (specimen) STRUCTURE OF LEFT UPPER LIMB / Unknown 06/02/2017 5:35 PM EST 06/02/2017 5:59 PM EST Narrative Resulting Agency Comment Spec In Lab Washington Deluca MD MICROBIOLOGY - BLO OD ORDERABLES Performing Organization Address City/[facility]/ZIP Co de Phone Number [facility] [place] [address] * Blood culture (06/02/2017 5:30 PM EST) [facility] [address] Blood Culture No growth at 5 days. [facility] Blood specimen (specimen) STRUCTURE OF RIGHT UPPER LIMB / Unknown 06/02/2017 5:30 PM EST 06/02/2017 5:58 PM EST Narrative Resulting Agency Comment Spec In Lab Washington Deluca MD MICROBIOLOGY - BLO OD ORDERABLES Performing Organization Address City/[facility]/ZIP Co de Phone Number [facility] [place] [address] * ABORH Recheck Status (06/02/2017 4:25 PM EST) [facility] [address] ABORH Type Recheck Completed [facility] Blood specimen (specimen) 06/02/2017 4:25 PM EST 06/02/2017 4:45 PM EST Narrative Resulting Agency Comment Spec In Lab Washington Deluca MD BLOOD BANK LAB ORD ERABLES Performing Organization Address [facility] Co de Phone Number [facility] [place] [address] * Antibody screen (06/02/2017 4:25 PM EST) [facility] [address] Ab Screen Interp Negative [facility] Expires at [id number] on: 06/05/2017 [facility] Blood specimen (specimen) 06/02/2017 4:25 PM EST 06/02/2017 4:45 PM EST Narrative Resulting Agency Comment Spec In Lab Washington Deluca MD BLOOD BANK LAB ORD ERABLES Performing Organization Address City/[facility]/ZIP Co de Phone Number [facility] [place] [address] * Hepatic Function Panel (06/02/2017 4:25 PM EST) [facility] [address] Protein, Total 7.2 6.1 - 8.0 gm/dL [facility] Albumin 4.3 3.2 - 5.2 gm/dL [facility] Aspartate Aminotransferase 21 0 - 39 unit/L [facility] Alanine Aminotransferase 9 0 - 55 unit/L [facility] Alkaline Phosphatase 62 40 - 120 unit/L [facility] Bilirubin, Total 0.8 0.2 - 1.3 mg/dL [facility] Bilirubin, Direct 0.2 0.0 - 0.3 mg/dL [facility] Blood specimen (specimen) 06/02/2017 4:25 PM EST 06/02/2017 4:35 PM EST Narrative Resulting Agency Comment Spec In Lab Washington Deluca MD CHEMISTRY ORDERABL ES [facility] [place] [address] * (ABNORMAL) Basic Metabolic Panel (non-fasting) (06/02/2017 4:25 PM EST) Glucose 106 65 - 199 mg/dL [facility] Comment:Diabetes: >=200 mg/d L plus symptoms Blood Urea Nitrogen 16 10 - 20 mg/dL [facility] Creatinine 1.16 0.80 - 1.50 mg/dL [facility] Sodium 141 135 - 145 mmol/L [facility] Potassium 4.2 3.5 - 5.0 mmol/L [facility] Comment: Please note: ??Patients with WBC >100,000 may have falsely elevated Potassium levels. ??For accurate Potassium quantification in these patients send serum separator tube (gold top) for subsequent determinations. ??Contact the Clinical Chemistry Laboratory if there are any questions. Chloride 100 98 - 107 mmol/L [facility] Carbon Dioxide 21(L) 22 - 31 mmol/L [facility] Anion Gap 20(H) 5 - 15 mmol/L [facility] Calcium 9.4 8.5 - 10.5 mg/dL [facility] Est Glomerular Filtration Rate >60 >=60 [facility] Comment: The reported eGFR should be multiplied by 1.2 for patients. The MDRD is not an appropriate measure of renal function for patients with body mass extremes or in patients with acute kidney failure. http://TruckTrack/DHnkdep http://TruckTrack/DHMCnkf Blood specimen (specimen) 06/02/2017 4:25 PM EST 06/02/2017 4:35 PM EST Narrative Resulting Agency Comment Spec In Lab Washington Deluca MD CHEMISTRY ORDERABL ES [facility] [place] [address] * (ABNORMAL) Differential, Automated (06/02/2017 2:35 PM EST) Neutrophil % 83.4 % [facility] Neutrophil Absolute 6.63(H) 1.70 - 6.10 x10(3)/mc L [facility] Lymph % 9.2 % [facility] Lymphocytes Abs 0.7(L) 0.9 - 3.2 x10(3)/mc L [facility] Monocyte % 5.7 % [facility] Monocyte Abs 0.4 0.3 - 0.9 x10(3)/mc L [facility] Eos % 0.8 % [facility] Eosinophils Abs 0.1 0.0 - 0.4 x10(3)/mc L [facility] Basophil % 0.6 % [facility] Baso Absolute 0.0 0.0 - 0.1 x10(3)/mc L [facility] Immature Gran % 0.30 % [facility] Comment: Immature granulocytes(IG's)percentage and absolute count will include metamyelocytes, myelocytes, and promyelocytes. Blood smears from CBCs yielding IG's will be scanned manually for concordance. If this scan disagrees with the automated IG or if promyelocytes are noted, a manual differential will be performed. Immature Gran Absolute 0.02 0.00 - 0.04 x10(3)/ L [facility] Blood specimen (specimen) 06/02/2017 2:35 PM EST 06/02/2017 2:48 PM EST Narrative Resulting Agency Comment Spec In Lab Washington Deluca MD HEMATOLOGY ORDERAB LES [facility] [place] [address] * (ABNORMAL) Hemogram (06/02/2017 2:35 PM EST) White Blood Cell 7.9 4.0 - 9.5 x10(3)/[facility] LABORAT[facility] Red Blood Cell 4.48(L) 4.58 - 5.54 x10(6)/[facility] Hemoglobin 14.7 13.7 - 16.5 gm/dL [facility] Hematocrit 40.4(L) 40.5 - 48.5 % [facility] Mean Cell Volume 90.2 82.9 - 93.1 fL [facility] Mean Cell Hemoglobin 32.8(H) 27.5 - 32.1 pg [facility] Mean Cell Hemoglobin Concentration 36.4(H) 32.0 - 35.7 gm/dL [facility] Platelet 308 145 - 357 x10(3)/[facility] LABORATORY RDW Standard Deviation 42.7 36.0 - 45.0 [facility] RDW coefficient of variation 13.0 11.4 - 13.8 % [facility] Mean Platelet Volume 10.7 7.6 - 12.9 fL [facility] NRBC% auto 0.0 % [facility] NRBC Absolute 0.000 0.000 - 0.000 x10(3)/[facility] Blood specimen (specimen) 06/02/2017 2:35 PM EST 06/02/2017 2:48 PM EST Narrative Resulting Agency Comment Spec In Lab Washington Deluca MD HEMATOLOGY ORDERAB LES Performing Organization Address City/[facility]/ZIP Co de Phone Number [facility] [place] [address] * LDL Cholesterol, Direct (06/02/2017 2:35 PM EST) LDL Cholesterol, Direct 92 <=190 mg/dL [facility] Blood specimen (specimen) 06/02/2017 2:35 PM EST 06/02/2017 2:48 PM EST Narrative Resulting Agency Comment Spec In Lab Washington Deluca MD CHEMISTRY ORDERABL ES Performing Organization Address [facility] Co de Phone Number [facility] [place] [address] * HDL/Cholesterol Profile (06/02/2017 2:35 PM EST) Cholesterol, Total 170 <=239 mg/dL [facility] HDL Cholesterol 69 >=40 mg/dL [facility] Cholesterol/HDL Ratio 2.5 ratio [facility] Chol/HDL Interpretation See Note [facility] Comment: Lipid management should be guided by a patient? s ASCVD risk, goals and preferences. ACC/AHA Guidelines recommend high intensity statin if clinical ASCVD or LDL greater than or equal to 190 mg/dL. http://One Kings Laneurl.com/ILY-CTF-Gfwrrotgv Measure LDL if Total Cholesterol minus HDL Cholesterol is greater than 220 mg/dL. Adults aged 40-75 with LDL 70-189 mg/dL should have their 10 year ASCVD risk estimated with the ACC/AHA ASCVD risk station manager http://tools.acc.org/CLCUP-Qefn-Ylbdztkzg/ Statin should be discussed if risk greater [...] Lab Washington Deluca MD CHEMISTRY ORDERABL ES [facility] [place] [address] * Hepatic Function Panel (06/02/2017 2:35 PM EST) Protein, Total Not Perf 6.1 - 8.0 [facility] Comment: Unable to quantitate due to sample hemolysis. ??Sample redraw suggested. Called by: JANAE, Read back by: SAVANNAH MAHAJAN, Date/Time:06/02/17 15:41. Albumin 4.2 3.2 - 5.2 gm/dL [facility] Aspartate Aminotransferase Not Perf 0 - 39 unit/L [facility] Comment: Unable to quantitate due to sample hemolysis. ??Sample redraw suggested. Called by: JANAE, Read back by: SAVANNAH MAHAJAN, Date/Time:06/02/17 15:41. Alanine Aminotransferase Not Perf 0 - 55 [facility] Comment: Unable to quantitate due to sample hemolysis. ??Sample redraw suggested. Called by: JANAE, Read back by: SAVANNAH MAHAJAN, Date/Time:06/02/17 15:41. Alkaline Phosphatase Not Perf 40 - 120 [facility] Comment: Unable to quantitate due to sample hemolysis. ??Sample redraw suggested. Called by: JANAE, Read back by: SAVANNAH MAHAJAN, Date/Time:06/02/17 15:41. Bilirubin, Total 0.8 0.2 - 1.3 mg/dL [facility] Bilirubin, Direct Not Perf 0.0 - 0.3 mg/dL [facility] Comment: Unable to quantitate due to sample hemolysis. ??Sample redraw suggested. Called by: JANAE, Read back by: SAVANNAH MAHAJAN, Date/Time:06/02/17 15:41. Blood specimen (specimen) 06/02/2017 2:35 PM EST 06/02/2017 2:48 PM EST Narrative Resulting Agency Comment Spec In Lab Washington Deluca MD CHEMISTRY ORDERABL ES [facility] [place] [address] * (ABNORMAL) Basic Metabolic Panel (non-fasting) (06/02/2017 2:35 PM EST) Glucose 119 65 - 199 mg/dL [facility] Comment:Diabetes: >=200 mg/d L plus symptoms Blood Urea Nitrogen 15 10 - 20 mg/dL [facility] Creatinine 1.22 0.80 - 1.50 mg/dL [facility] Sodium Not Perf 135 - 145 mmol/L [facility] Comment: Unable to quantitate due to sample hemolysis. ??Sample redraw suggested. Called by: JANAE, Read back by: SAVANNAH MAHAJAN, Date/Time:06/02/17 15:41. Potassium Not Perf 3.5 - 5.0 mmol/L [facility] Comment: Unable to quantitate due to sample hemolysis. ??Sample redraw suggested. Called by: JANAE, Read back by: SAVANNAH MAHAJAN, Date/Time:06/02/17 15:41. Please note: ??Patients with WBC >100,000 may have falsely elevated Potassium levels. ??For accurate Potassium quantification in these patients send serum separator tube (gold top) for subsequent determinations. ??Contact the Clinical Chemistry Laboratory if there are any questions. Chloride Not Perf 98 - 107 mmol/L [facility] Comment: Unable to quantitate due to sample hemolysis. ??Sample redraw suggested. Called by: JANAE, Read back by: SAVANNAH MAHAJAN, Date/Time:06/02/17 15:41. Carbon Dioxide 20(L) 22 - 31 mmol/L [facility] Anion Gap Unable to Calculate 5 - 15 mmol/L [facility] Calcium 8.7 8.5 - 10.5 mg/dL [facility] Est Glomerular Filtration Rate 59(L) >=60 [facility] Comment: The reported eGFR should be multiplied by 1.2 for patients. The MDRD is not an appropriate measure of renal function for patients with body mass extremes or in patients with acute kidney failure. http://TruckTrack/DHnkdep http://TruckTrack/DHMCnkf Blood specimen (specimen) 06/02/2017 2:35 PM EST 06/02/2017 2:48 PM EST Narrative Resulting Agency Comment Spec In Lab Washington Deluca MD CHEMISTRY ORDERABL ES [facility] [place] [address] * CT Carotids & [place] w Contrast (06/02/2017 2:03 PM EST) Anatomical Region Laterality Modality Neck, Head Computed Tomogra phy Impressions 06/02/2017 5:00 PM EST 1. 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 No intracranial occlusion or severe stenosis. 2. ??Extensive changes of cervical spondylosis. 3. ??Incidental 2 cm lucent lesion in the left mandible, which appears to contain an unerupted tooth. This may represent a dentigerous cyst. Repeat CT of the face without contrast to be considered when clinically appropriate for better evaluation. Narrative 06/02/2017 5:00 PM EST EXAMINATION: CT CAROTIDS AND [place] OF [place]EL[place]EN W CONTRAST CLINICAL HISTORY: aphasia TECHNIQUE: CTA of the carotids and [place] of [place] performed following intravenous administration of 65 mL per 50. 3-D and MIP images created. COMPARISON: None FINDINGS: There is mild atherosclerotic plaque on the arch without stenosis of the origins of great vessels. Right carotid: Common carotid origin is normal. Carotid bifurcation is unremarkable. Cervical right ICA is normal in caliber. Left carotid: Common carotid origin is normal. Carotid bifurcation is normal. Cervical ICA is normal in caliber. Right vertebral artery: The origin is normal. Cervical vertebral artery origin is normal. There is focal stenosis of the cervical vertebral artery at the C5-C6 level due to osteophyte. There are areas of minor narrowing elsewhere to osteophyte. Left vertebral artery: The proximal left ureter is occluded from its origin to the C4 level. There are areas were the foramen transversarium is narrowed by osteophyte, most prominently at the C4-C5 level. The vessel is poorly opacified at the C1-C2 level, and then reconstituted at the C1 level. Intracranial circulation: Intracranial internal carotid arteries are normal in caliber. MCA, KO, and visualized branches are normal. There is relatively poor opacification of the intradural left vertebral artery. The basilar artery is normal in caliber. Posterior cerebral arteries are normal. Nonvascular findings: There are extensive changes of cervical spondylosis with fusion of C2 C3-C4, and extensive uncovertebral and facet arthropathy. There is at least moderate central canal narrowing at C5-C6. There is a lucent lesion in the left mandible measuring approximately 2 cm adjacent to the previous study on unerupted tooth. This area is partially described motion artifact. Procedure Note Jacob Godoy MD - 06/02/2017 EXAMINATION: CT CAROTIDS AND [place] OF [place] W CONTRAST CLINICAL HISTORY: aphasia TECHNIQUE: CTA of the carotids and [place] of [place] performed following intravenous administration of 65 mL per 50. 3-D and MIP images created. COMPARISON: None FINDINGS: There is mild atherosclerotic plaque on the arch withoutstenosis of the origins of great vessels. Right carotid: Common carotid origin is normal. Carotid bifurcation is unremarkable. Cervical right ICA is normal in caliber. Left carotid: Common carotid origin is normal. Carotid bifurcation isnormal. Cervical ICA is normal in caliber. Right vertebral artery: The origin is normal. Cervical vertebral arteryorigin is normal. There is focal stenosis of the cervical vertebral artery at theC5-C6 level due to osteophyte. There are areas of minor narrowing elsewhere to osteophyte. Left vertebral artery: The proximal left ureter is occluded from itsorigin to the C4 level. There are areas were the foramen transversarium is narrowedby osteophyte, most prominently at the C4-C5 level. The vessel is poorlyopacified at the C1-C2 level, and then reconstituted at the C1 level. Intracranial circulation: Intracranial internal carotid arteries arenormal in caliber. MCA, KO, and visualized branches are normal. There is relativelypoor opacification of the intradural left vertebral artery. The basilar arteryis normal in caliber. Posterior cerebral arteries are normal. Nonvascular findings: There are extensive changes of cervical spondylosiswith fusion of C2 C3-C4, and extensive uncovertebral and facet arthropathy.There is at least moderate central canal narrowing at C5-C6. There is a lucentlesion in the left mandible measuring approximately 2 cm adjacent to the previousstudy on unerupted tooth. This area is partially described motion artifact. IMPRESSION 1. Multifocal moderate stenosis of the cervical right vertebral arterydue to osteophyte. Segmental occlusion of the left vertebral artery. Nointracranial occlusion or severe stenosis. 2. Extensive changes of cervical spondylosis. 3. Incidental 2 cm lucent lesion in the left mandible, which appears tocontain an unerupted tooth. This may represent a dentigerous cyst. Repeat CT ofthe face without contrast to be considered when clinically appropriate for better evaluation. Claribel Baron APRN [facility] ORDERABLES * Film Library- Storage Only DX Chest (06/02/2017 12:00 AM EST) Narrative [facility] - 06/02/2017 7:24 PM EST This exam is for storage only and is auto-finalizing. Dinh Rapp MD [facility] FILM LIBRARY ORD ERABLES Performing Organization Address [facility] de Phone Number [place], [place] * Film Library- Storage Only CT Head (06/01/2017 12:00 AM EST) Narrative [facility] - 06/02/2017 7:25 PM EST This exam is for storage only and is auto-finalizing. Dinh Rapp MD [facility] FILM LIBRARY ORD ERABLES Performing Organization Address City/[facility] Co de Phone Number [place], [place] documented in this encounter Visit Diagnoses Diagnosis Cerebrovascular accident (CVA), unspecified mechanism Pain Generalized pain CVA (cerebral vascular accident) Unspecified cerebral artery occlusion with cerebral infarction documented in this encounter Admitting Diagnoses Diagnosis CVA (cerebral vascular accident) Unspecified cerebral artery occlusion with cerebral infarction documented in this encounter Administered Medications Inactive Administered Medications - up to 3 most recent administrations Medication Order MAR Action Action Date Dose Rate Site acetaminophen (TYLENOL) 650 mg/20.3 mL oral liquid 975 mg 975 mg, Per G Tube, EVERY 6 HOURS PRN, Starting on Fri06/02/17 at 1552, Until Fri06/04/17 at 1457, Pain, Fever, pain or temperature greater than 100 degrees F (measured by mouth), Routine Given 06/02/2017 6:15 PM EST 975 mg acetaminophen (TYLENOL) suppository 975 mg 975 mg, Rectal, EVERY 6 HOURS PRN, Starting on Fri06/02/17 at 1552, Until Fri06/04/17 at 1457, Pain, Fever, pain or temperature greater than 100 degrees F (measured by mouth), Maximum dose of acetaminophen is 4000 mg from all sources in 24 hours., Routine acetaminophen (TYLENOL) tablet 975 mg 975 mg, Oral, EVERY 6 HOURS PRN, Starting on Fri06/02/17 at 1552, Until Fri06/04/17 at 1457, Pain, Fever, pain or temperature greater than 100 degrees F (measured by mouth), Maximum dose of acetaminophen is 4000 mg from all sources in 24 hours., Routine Given 06/04/2017 3:45 AM EST 975 mg Given 06/03/2017 9:06 PM EST 975 mg Given 06/03/2017 10:43 AM EST 975 mg acyclovir (ZOVIRAX) 725 mg in sodium chloride 0.9% 264.5 mL 725 mg, Intravenous, EVERY 8 HOURS, First dose (after last modification) on Fri06/02/17 at 1800, Until Discontinued, Administer over 60 Minutes, Weight-based dose is 10 mg/kg. Dose rounded per P&T policy, Indication for (Active or Suspected): OPTOMETRY PROFESSOR/Meningitis New Bag 06/04/2017 2:31 AM EST 725 mg 264. 5 mL/hr New Bag 06/03/2017 5:32 PM EST 725 mg 264.5 mL/hr New Bag 06/03/2017 10:14 AM EST 725 mg 264.5 mL/hr ampicillin 2g vial attach to sodium chloride 0.9% 100 mL Mini-Bag Plus 2,000 mg (2 g), Intravenous, EVERY 4 HOURS, First dose on Fri06/02/17 at 1800, Until Discontinued, Administer over 15 Minutes, Warning Vesicant/Irritant Medication , Indication for (Active or Suspected): OPTOMETRY PROFESSOR/Meningitis New 06/03/2017 10:10 AM EST 2,000 mg 400 mL/hr New 06/03/2017 6:08 AM EST 2,000 mg 400 mL/hr New 06/03/2017 2:50 AM EST 2,000 mg 400 mL/hr aspirin chewable tablet 81 mg 81 mg, Oral, DAILY, First dose on Fri06/03/17 at 1715, Until Discontinued, Routine Given 06/04/2017 8:13 AM EST 81 mg Given 06/03/2017 5:47 PM EST 81 mg cefTRIAXone (ROCEPHIN) 2g in dextrose 5% 50mL 2 g, Intravenous, EVERY 12 HOURS, First dose on Fri06/02/17 at 1800, Until Discontinued, Administer over 30 Minutes, Indication for (Active or Suspected): OPTOMETRY PROFESSOR/Meningitis New 06/03/2017 6:12 AM EST 2 g 100 mL/hr New 06/02/2017 6:42 PM EST 2 g 100 mL/hr docusate sodium (COLACE) capsule 100 mg 100 mg, Oral, 2 TIMES DAILY, First dose on Fri06/02/17 at 2100, Until Discontinued, Routine Given 06/04/2017 8:13 AM EST 100 mg Given 06/03/2017 9:06 PM EST 100 mg Given 06/03/2017 8:14 AM EST 100 mg enoxaparin (LOVENOX) injection 40 mg 40 mg, Subcutaneous, EVERY 24 HOURS SCHEDULED (Daily), First dose on Fri06/03/17 at 1715, Until Discontinued, Routine Given 06/04/2017 8:14 AM EST 40 mg Given 06/03/2017 5:48 PM EST 40 mg gadoterate meglumine (DOTAREM) 0.5 mmol/mL injection 0-1,562 mL 0-1,562 mL (0-20 mL/kg/dose ? 78.1 kg), Intravenous, ONCE PRN, 1 dose, Starting on Fri06/04/17 at 1021, Until Fri06/04/17 at 1029, Per Protocol, Radiology Contrast, Routine Given 06/04/2017 10:29 AM EST 16 mLs iohexol (OMNIPAQUE) 350 mg/mL solution 0-200 mL 0-200 mL, Intravenous, ONCE PRN, 1 dose, Starting on Fri06/02/17 at 1402, Until Fri06/02/17 at 1402, Per Protocol, Warning Vesicant/Irritant Medication , Radiology Contrast, Routine Given 06/02/2017 2:02 PM EST 65 mLs lidocaine (XYLOCAINE) 10 mg/mL (1 %) injection 3 mg 3 mg (0.3 mL), Subcutaneous, ONCE PRN, 1 dose, Starting on Fri06/02/17 at 1339, Until Fri06/04/17 at 1457, for discomfort with PIV insertion, Routine LORazepam (ATIVAN) 2 mg/mL injection 1 dose, Starting on Fri06/02/17 at 1342, Until Fri06/02/17 at 1513, SCHUYLER CARRION: cabinet override LORazepam (ATIVAN) injection 1 mg 1 mg, Intravenous, ONCE PRN, 1 dose, Starting on Fri06/02/17 at 1342, Until Fri06/02/17 at 1513, Anxiety, Sedation, As needed for CT scan, Routine Given 06/02/2017 3:13 PM EST 1 mg magnesium sulfate 1g in dextrose 5% 100mL 1 g, Intravenous, ONCE, 1 dose, On Fri06/02/17 at 1600, Administer over 60 Minutes New Bag 06/02/2017 4:32 PM EST 1 g 100 mL/hr magnesium sulfate 2 g in sterile water 50 mL 2 g, Intravenous, ONCE, 1 dose, On Fri06/03/17 at 0330, Administer over 120 Minutes New Bag 06/03/2017 3:46 AM EST 2 g 25 mL/hr niCARdipine 0.2 mg/mL (standard Adult and Pedi greater than 20 kg) infusion 0-15 mg/hr (0-75 mL/hr), Intravenous, CONTINUOUS PRN, Starting on Fri06/02/17 at 1552, Until Fri06/04/17 at 1457, BP > 180/105 despite labetalol, Call The laundry housekeeper if SBP is lower than 140 Administer if inadequate blood pressure control in 30 minutes despite Labetalol or if Labetalol not ordered. Start niCARdipine at 5mg/hr; Titrate to maintain SBP less than 180 mmHg or DBP less than 105 mmHg by increasing infusion rate by 2.5 mg/hr every 5 minutes to a maximum of 15mg/hr., Routine potassium chloride (K-DUR/KLOR-CON) extended release tablet 40 mEq 40 mEq, Oral, ONCE, 1 dose, On Fri06/03/17 at 0330, Routine Given 06/03/2017 3:44 AM EST 40 mEq sodium chloride 0.9 % flush 5 mL 5 mL, Intravenous, EVERY 12 HOURS, First dose on Fri06/02/17 at 1400, Until Discontinued, Routine Given 06/04/2017 2:36 AM EST 5 mLs Given 06/03/2017 2:45 PM EST 5 mLs Given 06/03/2017 2:51 AM EST 5 mLs sodium chloride 0.9 % flush 5-20 mL 5-20 mL, Intravenous, EVERY 1 MIN PRN, Starting on Fri06/02/17 at 1339, Until Fri06/04/17 at 1457, flush, Flush pertains to all indwelling lines. Flush per protocol found in the job aid using the link provided on this medication record., Routine sodium chloride 0.9% infusion 100 mL/hr, Intravenous, CONTINUOUS, Starting on Fri06/02/17 at 1615, Until Fri06/04/17 at 1457 New Bag 06/04/2017 1:37 AM EST 100 mL/hr 100 mL/hr New Bag 06/03/2017 12:46 PM EST 100 mL/hr 100 mL/hr New Bag 06/02/2017 4:33 PM EST 100 mL/hr 100 mL/hr vancomycin 1.5 g in sodium chloride 0.9% 250 mL 1.5 g, Intravenous, at 166.7 mL/hr, EVERY 18 HOURS, First dose on Fri06/03/17 at 1200, Until Discontinued, Maximum infusion rate is 1 gram/hour. If flushing of the face, neck, upper body, arms, and/or back occurs decrease infusion rate by 50% to reduce the severity of symptoms. This medication may have an associated drug lab level. Please see MAR for scheduled level., Routine, Indication for (Active or Suspected): OPTOMETRY PROFESSOR/Meningitis New Bag 06/03/2017 11:54 AM EST 1.5 g 166 .7 mL/hr vancomycin 2 g in sodium chloride 0.9% 500 mL 2 g, Intravenous, at 250 mL/hr, ONCE, 1 dose, On Fri06/02/17 at 1800, Maximum infusion rate is 1 gram/hour. If flushing of the face, neck, upper body, arms, and/or back occurs decrease infusion rate by 50% to reduce the severity of symptoms. This medication may have an associated drug lab level. Please see MAR for scheduled level., STAT, Indication for (Active or Suspected): OPTOMETRY PROFESSOR/Meningitis New Bag 06/02/2017 8:46 PM EST 2 g 250 mL/hr documented in this encounter Active and Recently Administered Medications Times are shown in EST. Scheduled Medication Order 06/02/2017 06/03/2017 06/04/2017 acyclovir (ZOVIRAX) 725 mg in sodium chloride 0.9% 264.5 mL (CANCELED) 725 mg, Intravenous, EVERY 8 HOURS, First dose (after last modification) on Fri06/02/17 at 1800, Until Discontinued, Administer over 60 Minutes, Weight-based dose is 10 mg/kg. Dose rounded per P&T policy, Indication for (Active or Suspected): OPTOMETRY PROFESSOR/Meningitis 1923 (New Bag - Provider: Susan Leonard RN)202 (Stopped - Provider: Susan Leonard RN) 0249 (New Bag - Provider: Conrado Yang RN)0349 (Stopped - Provider: Conrado Yang RN)1014 (New Bag - Provider: Joey Hussein RN)1114 (Stopped - Provider: Joey Hussein RN)1732 (New Bag - Provider: Joey Hussein RN)1832 (Stopped - Provider: Joey Hussein RN) 0231 (New Bag - Provider: Valerie Mesa RN)0331 (Stopped - Provider: Aurora Batista RN)1120 (Not Given - Provider: Ed Grimm RN - Reason: Medication Discontinued - Comment: off to MRI) ampicillin 2g vial attach to sodium chloride 0.9% 100 mL Mini-Bag Plus (CANCELED) 2,000 mg (2 g), Intravenous, EVERY 4 HOURS, First dose on Fri06/02/17 at 1800, Until Discontinued, Administer over 15 Minutes, Warning Vesicant/Irritant Medication , Indication for (Active or Suspected): OPTOMETRY PROFESSOR/Meningitis 1811 (New Bag - Provider: Susan Leonard RN)1827 (Stopped - Provider: Susan Leonard RN)2316 (New Bag - Provider: Conrado Yang, ELIZABETH)2331 (Stopped - Provider: Conrado Yang, ELIZABETH) 0250 (New Bag - Provider: Conrado Yang, RN)0305 (Stopped - Provider: Conrado Yang, RN)0608 (New Bag - Provider: Conrado Yang, ELIZABETH)0623 (Stopped - Provider: Joey Hussein RN)1010 (New Bag - Provider: Joey Hussein RN)1025 (Stopped - Provider: Joey Hussein RN) aspirin chewable tablet 81 mg 81 mg, Oral, DAILY, First dose on Fri06/03/17 at 1715, Until Discontinued, Routine 174 (Given - Provider: Joey Hussein RN) 0813 (Given - Provider: Susanne Francois RN) cefTRIAXone (ROCEPHIN) 2g in dextrose 5% 50mL (CANCELED) 2 g, Intravenous, EVERY 12 HOURS, First dose on Fri06/02/17 at 1800, Until Discontinued, Administer over 30 Minutes, Indication for (Active or Suspected): OPTOMETRY PROFESSOR/Meningitis 184 (New Bag - Provider: Susan Leonard RN)1912 (Stopped - Provider: Susan Leonard RN) 0612 (New Bag - Provider: Conrado Yang RN)0642 (Stopped - Provider: Joey Hussein RN) docusate sodium (COLACE) capsule 100 mg 100 mg, Oral, 2 TIMES DAILY, First dose on Fri06/02/17 at 2100, Until Discontinued, Routine 2100 (Not Given - Provider: Susan Leonard RN - Reason: Patient/family refused) 0814 (Given - Provider: Joey Hussein RN)2106 (Given - Provider: Valerie Mesa RN) 0813 (Given - Provider: Susanne Francois RN) enoxaparin (LOVENOX) injection 40 mg 40 mg, Subcutaneous, EVERY 24 HOURS SCHEDULED (Daily), First dose on Fri06/03/17 at 1715, Until Discontinued, Routine 174 (Given - Provider: Joey Hussein RN) 0814 (Given - Provider: Susanne Francois RN) magnesium sulfate 1g in dextrose 5% 100mL (COMPLETED) 1 g, Intravenous, ONCE, 1 dose, On Fri06/02/17 at 1600, Administer over 60 Minutes 1632 (New Bag - Provider: Susan Leonard RN)1732 (Stopped - Provider: Susan Leonard RN) magnesium sulfate 2 g in sterile water 50 mL (COMPLETED) 2 g, Intravenous, ONCE, 1 dose, On Fri06/03/17 at 0330, Administer over 120 Minutes 0346 (New Bag - Provider: Conrado Yang, ELIZABETH)0546 (Stopped - Provider: Conrado Yang RN) potassium chloride (K-DUR/KLOR-CON) extended release tablet 40 mEq (COMPLETED) 40 mEq, Oral, ONCE, 1 dose, On Fri06/03/17 at 0330, Routine 0344 (Given - Provider: Conrado Yagn RN) sodium chloride 0.9 % flush 5 mL 5 mL, Intravenous, EVERY 12 HOURS, First dose on Fri06/02/17 at 1400, Until Discontinued, Routine 1330 (Given - Provider: Susan Leonard RN) 0251 (Given - Provider: Conrado Yang RN)1445 (Given - Provider: Joey Hussein RN) 0236 (Given - Provider: Valerie Mesa RN) vancomycin 1.5 g in sodium chloride 0.9% 250 mL (CANCELED) 1.5 g, Intravenous, at 166.7 mL/hr, EVERY 18 HOURS, First dose on Fri06/03/17 at 1200, Until Discontinued, Maximum infusion rate is 1 gram/hour. If flushing of the face, neck, upper body, arms, and/or back occurs decrease infusion rate by 50% to reduce the severity of symptoms. This medication may have an associated drug lab level. Please see MAR for scheduled level., Routine, Indication for (Active or Suspected): OPTOMETRY PROFESSOR/Meningitis 1154 (New Bag - Provider: Joey Hussein RN)1324 (Stopped - Provider: Joey Hussein RN) vancomycin 2 g in sodium chloride 0.9% 500 mL (COMPLETED) 2 g, Intravenous, at 250 mL/hr, ONCE, 1 dose, On 12/4/17 at 1800, Maximum infusion rate is 1 gram/hour. If flushing of the face, neck, upper body, arms, and/or back occurs decrease infusion rate by 50% to reduce the severity of symptoms. This medication may have an associated drug lab level. Please see MAR for scheduled level., STAT, Indication for (Active or Suspected): OPTOMETRY PROFESSOR/Meningitis 2045 (New Bag - Provider: Susan Leonard RN)224 (Stopped - Provider: Conrado Yang RN) Continuous Medication Order 06/02/2017 06/03/2017 06/04/2017 sodium chloride 0.9% infusion 100 mL/hr, Intravenous, CONTINUOUS, Starting on Fri06/02/17 at 1615, Until Fri06/04/17 at 1457 1633 (New Bag - Provider: Susan Leonard RN) 1246 (New Bag - Provider: Joey Hussein RN) 0137 (New Bag - Provider: Aurora Batista RN) PRN Medication Order 06/02/2017 06/03/2017 06/04/2017 acetaminophen (TYLENOL) 650 mg/20.3 mL oral liquid 975 mg(Linked Group 1) 975 mg, Per G Tube, EVERY 6 HOURS PRN, Starting on Fri06/02/17 at 1552, Until Fri06/04/17 at 1457, Pain, Fever, pain or temperature greater than 100 degrees F (measured by mouth), Routine 181 (Given - Provider: Susan Leonard RN) 1043 (See Alternative - Provider: Joey Hussein RN)210 (See Alternative - Provider: Valerie Mesa RN) 0345 (See Alternative - Provider: Aurora Batista RN) acetaminophen (TYLENOL) suppository 975 mg(Linked Group 1) 975 mg, Rectal, EVERY 6 HOURS PRN, Starting on Fri06/02/17 at 1552, Until Fri06/04/17 at 1457, Pain, Fever, pain or temperature greater than 100 degrees F (measured by mouth), Maximum dose of acetaminophen is 4000 mg from all sources in 24 hours., Routine 181 (See Alternative - Provider: Susan Leonard RN) 1043 (See Alternative - Provider: Joey Hussein RN)2106 (See Alternative - Provider: Valerie Mesa RN) 0345 (See Alternative - Provider: Aurora Batista, ELIZABETH) acetaminophen (TYLENOL) tablet 975 mg(Linked Group 1) 975 mg, Oral, EVERY 6 HOURS PRN, Starting on Fri06/02/17 at 1552, Until Fri06/04/17 at 1457, Pain, Fever, pain or temperature greater than 100 degrees F (measured by mouth), Maximum dose of acetaminophen is 4000 mg from all sources in 24 hours., Routine 181 (See Alternative - Provider: Susan Leonard RN) 1043 (Given - Provider: Joey Hussein RN)210 (Given - Provider: Valerie Mesa RN) 0345 (Given - Provider: Aurora Batista, ELIZABETH) bisacodyl (DULCOLAX) suppository 10 mg 10 mg, Rectal, DAILY PRN, Starting on Fri06/02/17 at 1552, Until Fri06/04/17 at 1457, Constipation, Administer if needed per patient's routine or if no bowel movement within 48 hours to achieve: (1) One bowel movement every 48 hours, AND (2) Without straining. If multiple PRN bowel medications ordered, start with magnesium hydroxide, then bisacodyl. Multiple medications may be given concomitantly for constipation., Routine enalaprilat (VASOTEC) injection 1.25 mg, Intravenous, Administer over 5 Minutes, EVERY 6 HOURS PRN, Starting on Fri06/02/17 at 1552, Until Fri06/04/17 at 1457, BP > 180/105, Administer if inadequate blood pressure control in 30 minutes despite Labetalol. enalaprilat can be given with labetalol or nicardipine. SBP greater than 180 mm Hg or DBP greater than 105 mmHg, Routine gadoterate meglumine (DOTAREM) 0.5 mmol/mL injection 0-1,562 mL (COMPLETED) 0-1,562 mL (0-20 mL/kg/dose ? 78.1 kg), Intravenous, ONCE PRN, 1 dose, Starting on Fri06/04/17 at 1021, Until Fri06/04/17 at 1029, Per Protocol, Radiology Contrast, Routine 1029 (Given - Provider: Bonnie Chung) iohexol (OMNIPAQUE) 350 mg/mL solution 0-200 mL (COMPLETED) 0-200 mL, Intravenous, ONCE PRN, 1 dose, Starting on Fri06/02/17 at 1402, Until Fri06/02/17 at 1402, Per Protocol, Warning Vesicant/Irritant Medication , Radiology Contrast, Routine 1402 (Given - Provider: Eldon Bruno) labetalol (NORMODYNE,TRANDATE) injection 10-20 mg 10-20 mg, Intravenous, Administer over 2 Minutes, EVERY 15 MIN PRN, Starting on Fri06/02/17 at 1552, Until Fri06/04/17 at 1457, High Blood Pressure, Administer for systolic BP greater than or equal to 180 mmHg and/or diastolic BP greater than or equal to 105 mmHg. Administer 10 mg over 2 minutes. May repeat every 15 minutes if SBP remains above goal. If inadequate effect with second 10 mg dose then increase to 20 mg per dose for subsequent dosing every 15 minutes. Do not exceed 300 mg per 24 hours. Hold if pulse less than 50 beats per minute. If Labetalol does not satisfactorily control BP, consider enalaprilat or nicCARdipine., Routine lidocaine (XYLOCAINE) 10 mg/mL (1 %) injection 3 mg 3 mg (0.3 mL), Subcutaneous, ONCE PRN, 1 dose, Starting on Fri06/02/17 at 1339, Until Fri06/04/17 at 1457, for discomfort with PIV insertion, Routine LORazepam (ATIVAN) injection 1 mg (COMPLETED) 1 mg, Intravenous, ONCE PRN, 1 dose, Starting on Fri06/02/17 at 1342, Until Fri06/02/17 at 1513, Anxiety, Sedation, As needed for CT scan, Routine 1513 (Given - Provider: Ssuan Leonard RN) magnesium hydroxide (MILK OF MAGNESIA) oral suspension 10 mL 10 mL, Oral, DAILY PRN, Starting on Fri06/02/17 at 1552, Until Fri06/04/17 at 1457, Constipation, Administer if needed per patient's routine or if no bowel movement within 48 hours to achieve: (1) One bowel movement every 48 hours, AND (2) Without straining. If multiple PRN bowel medications ordered, start with magnesium hydroxide, then bisacodyl. Multiple medications may be given concomitantly for constipation., Routine niCARdipine 0.2 mg/mL (standard Adult and Pedi greater than 20 kg) infusion(Linked Group 2) 0-15 mg/hr (0-75 mL/hr), Intravenous, CONTINUOUS PRN, Starting on Fri06/02/17 at 1552, Until Fri06/04/17 at 1457, BP > 180/105 despite labetalol, Call The laundry housekeeper if SBP is lower than 140 Administer if inadequate blood pressure control in 30 minutes despite Labetalol or if Labetalol not ordered. Start niCARdipine at 5mg/hr; Titrate to maintain SBP less than 180 mmHg or DBP less than 105 mmHg by increasing infusion rate by 2.5 mg/hr every 5 minutes to a maximum of 15mg/hr., Routine sodium chloride 0.9 % flush 5-20 mL 5-20 mL, Intravenous, EVERY 1 MIN PRN, Starting on Fri06/02/17 at 1339, Until Fri06/04/17 at 1457, flush, Flush pertains to all indwelling lines. Flush per protocol found in the job aid using the link provided on this medication record., Routine Linked Groups Order Group 1: acetaminophen (TYLENOL) tablet 975 mgJump to med 975 mg, Oral, EVERY 6 HOURS PRN, Starting on Fri06/02/17 at 1552, Until Fri06/04/17 at 1457, Pain, Fever, pain or temperature greater than 100 degrees F (measured by mouth), Maximum dose of acetaminophen is 4000 mg from all sources in 24 hours., Routine Or acetaminophen (TYLENOL) 650 mg/20.3 mL oral liquid 975 mgJump to med 975 mg, Per G Tube, EVERY 6 HOURS PRN, Starting on Fri06/02/17 at 1552, Until Fri06/04/17 at 1457, Pain, Fever, pain or temperature greater than 100 degrees F (measured by mouth), Routine Or acetaminophen (TYLENOL) suppository 975 mgJump to med 975 mg, Rectal, EVERY 6 HOURS PRN, Starting on Fri06/02/17 at 1552, Until Fri06/04/17 at 1457, Pain, Fever, pain or temperature greater than 100 degrees F (measured by mouth), Maximum dose of acetaminophen is 4000 mg from all sources in 24 hours., Routine Group 2: niCARdipine 0.2 mg/mL (standard Adult and Pedi greater than 20 kg) infusionJump to med 0-15 mg/hr (0-75 mL/hr), Intravenous, CONTINUOUS PRN, Starting on Fri06/02/17 at 1552, Until Fri06/04/17 at 1457, BP > 180/105 despite labetalol, Call The laundry housekeeper if SBP is lower than 140 Administer if inadequate blood pressure control in 30 minutes despite Labetalol or if Labetalol not ordered. Start niCARdipine at 5mg/hr; Titrate to maintain SBP less than 180 mmHg or DBP less than 105 mmHg by increasing infusion rate by 2.5 mg/hr every 5 minutes to a maximum of 15mg/hr., Routine And Vital signs Q4H (CANCELED) Routine, EVERY 4 HOURS, First occurrence on Fri06/02/17 at 1600, Vital Signs per step down or critical care units. And Cardiac Monitoring (CANCELED) Routine, UNTIL DISCONTINUED, Starting on Fri06/02/17 at 1555, Until Specified, This order is to be used only in the following areas: ED / CDU, Critical Care and Step Down Units to initiate cardiac monitoring per unit protocols. documented in this encounter Care Teams Delivery Man Relationship Specialty Start Date End Date Diana Weaver MD [address] [place] [address] PCP - General 05/22/10 09/11/17 documented as of this encounter
--- OUTSIDE RECORDS SUMMARY | 2024-03-12 00:10 | XMS_ITS | Encounter Summary ---
Author Organization [facility] Address [facility] [place] [address] Care Team Providers Care Chair Mechanic Name Role Phone Washington Puckett MD Primary Care Provider [phone] Reason for Visit * Reason Onset Date Comments Injections 10/13/2018 Encounter Details Date Type Department Care Team (Late st Contact Info) Description 10/13/2018 [place] [address] Oliver Carter MD [facility] [place] [address] Injections Social History Tobacco Use Types Packs/Day [...] encounter Miscellaneous Notes * Telephone Encounter - Radha Cornejo - 10/14/2018 11:09 AM EDT Scheduled * Telephone Encounter - Wanda Mckeon - 10/13/2018 3:03 PM EDT LM #1 to call to schedule an appointment either with Dr. Caretr or with April Amor for left shoulder injection * Telephone Encounter - Hattie Hope - 10/13/2018 10:07 AM EDT Best phone # to reach the patient for [phone] Patient requests appointment for injection of the Left shoulder. Patient requests an injection of (product type: cortisone/Synvisc/Monovisc/other): cortisone Some injections require prior authorization, special orders, [...] on filedocumented in this encounter Care Teams Chair Mechanic Relationship Specialty Start Date End Date Washington Puckett MD [address] [place] [address] PCP - General Internal Medicine 09/12/17 01/25/24 documented as of this encounter
--- OUTSIDE RECORDS SUMMARY | 2024-03-12 00:10 | XMS_ITS | Encounter Summary ---
Author Organization [facility] Address [facility] [place] [address] Care Team Providers Care Railroad Passenger Agent Name Role Phone Diana Weaver MD Primary Care Provider [phone] Reason for Visit * Reason Comments Follow-up R shoulder pain Encounter Details Date Type Department Care Team (Late st Contact Info) Description 03/18/2017 10:00 AM EDT Office [place] [address] Oliver Carter MD [facility] [place] [address] Rotator cuff disorder, unspecified laterality Social History Tobacco Use Types Packs/Day Years [...] Sign Reading Time Taken Comments Blood Pressure 141/77 03/18/2017 10:09 AM EDT Pulse 60 03/18/2017 10:09 AM EDT Temperature - - Respiratory Rate - - Oxygen Saturation - - Inhaled Oxygen Concentration - - Weight 79.4 kg (175 lb) 03/18/2017 10:09 AM EDT stated Height 177.8 cm (5' 10) 03/18/2017 10:09 AM EDT stated Body Mass Index 25.11 03/18/2017 10:09 AM EDT documented in this encounter Progress Notes * Oliver Carter MD - 03/18/2017 10:00 AM EDT Mr. Cat is a 71-year-old gentleman well known to me with rotator cuff disease in the right shoulder. He has been diagnosed for over a year with a large to massive rotator cuff tear. Initially it was felt that this was repairable but following a period of physical therapy and deltoid retraining for his massive cuff tear, he has done extremely well. Able to do all activities with minimal discomfort. He has occasionally required a subacromial injection to relieve some worsening pain and he requests that be done again today since he is feeling some mild discomfort when he swims as well as some return of moderate night pain. He understands that by waiting to perform repair of his rotator cuff, that we likely are losing the opportunity to perform a repair successfully. Right shoulder exam again is quite remarkable in that he can actively abduct and forward flex to 175 degrees without significant pain and he has full external rotation and internal rotation. He has some slight weakness to resisted abduction with 4-/5 strength as well as forward flexion and his external rotation is 4+/5. Mr. Cat would like to proceed with subacromial injections, so we went ahead and prepped his posterior shoulder region with DuraPrep and injected the subacromial space with a combination of 4 mL of 1% lidocaine and 40 mg of Kenalog. He tolerated the injection well. He will continue with his exercise regimen and will follow up p.r.n. documented in this encounter Plan of Treatment Not on file documented as of this encounter Visit Diagnoses Diagnosis Rotator cuff disorder, unspecified laterality documented in this encounter Administered Medications Inactive Administered Medications - up to 3 most recent administrations Medication Order MAR Action Action Date Dose Rate Site triamcinolone acetonide (KENALOG-40) injection 40 mg 40 mg, Intra-articular, ONCE, 1 dose, On Fri03/18/17 at 1145, Routine Given 03/18/2017 11:18 AM EDT 40 mg documented in this encounter Care Teams Railroad Passenger Agent Relationship Specialty Start Date End Date Fine, Diana D, MD [address] [place] [address] PCP - General 05/22/10 09/11/17 documented as of this encounter
--- OUTSIDE RECORDS SUMMARY | 2024-03-12 00:10 | XMS_ITS | Encounter Summary ---
Author Organization [facility] Address [facility] [place] [address] Care Team Providers Care Correspondence Section Supervisor Name Role Phone Diana Weaver MD Primary Care Provider [phone] Encounter Details Date Type Department Care Team (Latest Contact Info) Description 06/18/2017 9:42 AM EST - 06/18/2017 11:59 PM EST Hospital Encounter XRay at [address] [address] Ed Post MD [facility] ORTHOPAEDIC [place] [address] Presence of artificial knee joint, bilateral Discharge Disposition: Home Social History Tobacco Use [...] needed. 25 mg - 50 mg prn mirtazapine (REMERON) 15 mg Tablet take 1 tablet by mouth at bedtime 0 06/15/2017 07/02/2017 lactobacillus rhamnosus, GG, (CULTURELLE) 10 billion cell [...] mouth nightly. 30 tablet 3 06/04/2017 07/02/2017 documented as of this encounter Plan of Treatment Not on file documented as of this encounter Procedures Procedure Name Priority Date/Time Associated Diagnosis Comments XR KNEE AP AND LAT BILAT Routine 06/18/2017 10:00 AM EST Presence of artificial knee joint, bilateral documented in this encounter Results * XR Knee 1-2 Views Bilat (Generic) (06/18/2017 10:00 AM EST) Anatomical Region Laterality Modality Knee Bilateral Digital Radiogra phy Impressions 06/18/2017 10:37 AM EST Unchanged appearance of bilateral total knee arthroplasties without interval radiographic complication. Narrative 06/18/2017 10:37 AM EST EXAMINATION: XR KNEE 1-2 VIEWS BILAT (GENERIC) CLINICAL HISTORY: BILATERAL TKA TECHNIQUE: AP and lateral radiographs of the bilateral knees. COMPARISON: Radiographs of the bilateral knees dated 06/01/2015. FINDINGS: Bilateral total knee arthroplasties are unchanged in alignment. No periprosthetic fractures identified. No interval periprosthetic radiolucencies. Trace bilateral knee joint effusions are noted as well as distal right interstitial femoral arterial atherosclerosis. Unchanged enthesopathy at the patellar insertion of the quadriceps tendon laterally and small amount of calcification/ossification of the distal left quadriceps tendon. Procedure Note Shari Talbot MD - 06/18/2017 EXAMINATION: XR KNEE 1-2 VIEWS BILAT (GENERIC) CLINICAL HISTORY: BILATERAL TKA TECHNIQUE: AP and lateral radiographs of the bilateral knees. COMPARISON: Radiographs of the bilateral knees dated 06/01/2015. FINDINGS: Bilateral total knee arthroplasties are unchanged in alignment. No periprosthetic fractures identified. No interval periprostheticradiolucencies. Trace bilateral knee joint effusions are noted as well as distal right interstitial femoral arterial atherosclerosis. Unchanged enthesopathy atthe patellar insertion of the quadriceps tendon laterally and small amountof calcification/ossification of the distal left quadriceps tendon. IMPRESSION Unchanged appearance of bilateral total knee arthroplasties withoutinterval radiographic complication. Ed Post MD IMG DX ORDERABLES documented in this encounter Visit Diagnoses Diagnosis Presence of artificial knee joint, bilateral documented in this encounter Care Teams Correspondence Section Supervisor Relationship Specialty Start Date End Date Diana Weaver MD [address] [place] [id number] PCP - General 05/22/10 09/11/17 documented as of this encounter
--- OUTSIDE RECORDS SUMMARY | 2024-03-12 00:10 | XMS_ITS | Encounter Summary ---
Author Organization [facility] Address [facility] [place] [address] Care Team Providers Care Stamping Press Operator Name Role Phone Washington Puckett MD Primary Care Provider [phone] Reason for Visit * Reason Comments Follow-up R shoulder injection Encounter Details Date Type Department Care Team (Late st Contact Info) Description 04/28/2018 2:30 PM EDT Office [place] [address] Oliver Carter MD [facility] [place] [address] Disorder of rotator cuff of both shoulders [...] Sign Reading Time Taken Comments Blood Pressure 137/77 04/28/2018 2:27 PM EDT Pulse 67 04/28/2018 2:27 PM EDT Temperature - - Respiratory Rate - - Oxygen Saturation - - Inhaled Oxygen Concentration - - Weight 86.8 kg (191 lb 4.8 oz) 04/28/2018 2:27 P M EDT measured Height 177.8 cm (5' 10) 04/28/2018 2:27 PM EDT Body Mass Index 27.45 04/28/2018 2:27 PM EDT documented in this encounter Progress Notes * Oliver Carter MD - 04/28/2018 2:30 PM EDT Mr. Cat is a 72-year-old gentleman well-known to me with bilateral shoulder complaints. He suffers from a massive irreparable rotator cuff tear on his right shoulder and presumed rotator cuff tendinosis/impingement on his left shoulder. His right shoulder has been diagnosed by MRI and he is done very well with a deltoid strengthening program. He states his left side is also done very well since an injection was given to him 5 months ago but he is starting to have significant night pain forwhich he would like to have a repeat injection done on that side. He states he continues to do his exercises that have been given to him on both sides. Physical exam of the left shoulder demonstrates a full arc of abduction forward flexion internal and external rotation with 5/5 strength resisted external rotation and abduction. Provocative signs for impingement including Mcghee Karlo and Neer impingement signs are mildly positive. Assessment and plan: Presumed persistent low-grade rotator cuff tendinosis left shoulder. The patient would like another injection since it has helped him so much in the past so we have chosen to proceed with this. The correct left shoulder for injection was identified. The skin [...] relief of their symptoms. Follow-up will be as needed. Oliver Carter MD Restaurant Area Manager Orthopaedic Surgery Dept. of Orthopaedic Surgery [facility] documented in this encounter Plan of Treatment Not on file documented as of this encounter Visit Diagnoses Diagnosis Disorder of rotator cuff of both shoulders Disorders of bursae and tendons in shoulder region, unspecified documented in this encounter Care Teams Stamping Press Operator Relationship Specialty Start Date End Date Washington Puckett MD [address] [place] [address] PCP - General Internal Medicine 09/12/17 01/25/24 documented as of this encounter
--- OUTSIDE RECORDS SUMMARY | 2024-03-12 00:10 | XMS_ITS | Encounter Summary ---
[facility] [place] [address] Care Team Providers Care Sales Effectiveness Manager Name Role Phone Diana Weaver MD Primary Care Provider [phone] Encounter Details Date Type Department Care Team (Latest Contact Info) Description 06/02/2017 - 06/02/2017 12:29 PM EST Hospital Encounter [place] [address] Discharge Disposition: Home Social History Tobacco Use [...] Associated Diagnosis Comments FILM LIBRARY STORAGE ONLY DX CHEST Routine 06/02/2017 12:00 AM EST Pain documented in this encounter Results * Film Library- Storage Only DX Chest (06/02/2017 12:00 AM EST) Narrative [place] - 06/02/2017 7:24 PM EST This exam is for storage only and is auto-finalizing. Dinh Rapp MD IMG FILM LIBRARY ORD ERABLES [place], [place] documented in this encounter Visit Diagnoses Not on filedocumented in this encounter Care Teams Sales Effectiveness Manager Relationship Specialty Start Date End Date Diana Weaver MD [address] [place] [address] PCP - General 05/22/10 09/11/17 documented as of this encounter
--- OUTSIDE RECORDS SUMMARY | 2024-03-12 00:10 | XMS_ITS | Encounter Summary ---
Author Organization [facility] Address [facility] [place] [address] Care Team Providers Care Boot Turner Name Role Phone Washington Puckett MD Primary Care Provider [phone] Reason for Visit * Reason Onset Date Comments Injections 01/27/2019 Encounter Details Date Type Department Care Team (Late st Contact Info) Description 01/27/2019 Telephone [place] [address] Oliver Carter MD [facility] [place] [address] Injections Social History Tobacco Use Types Packs/Day [...] encounter Miscellaneous Notes * Telephone Encounter - Lani Palafox - 01/27/2019 11:08 AM EDT Patient scheduled * Telephone Encounter - Ketan Blum RN - 01/27/2019 10:27 AM EDT Can be scheduled with Dr. Carter for left shoulder rotator cuff tendinitis injection in the office, but this can be no sooner than 03/01/2019. Thanks * Telephone Encounter - Radha Cornejo - 01/27/2019 10:16 AM EDT Best phone # to reach patient for [phone] Best days/times to schedule the appointment: First available with Dr. Carter Is it acceptable to leave a voicemail message with your appointment if we are unable to reach you directly? yes Patient requests appointment for injection of the Left shoulder. Patient requests an injection of (product type: cortisone/Synvisc/Monovisc/other): cortisone I will send this request to the [...] on filedocumented in this encounter Care Teams Boot Turner Relationship Specialty Start Date End Date Washington Puckett MD [address] [place] [address] PCP - General Internal Medicine 09/12/17 01/25/24 documented as of this encounter
--- OUTSIDE RECORDS SUMMARY | 2024-03-12 00:10 | XMS_ITS | Encounter Summary ---
[place] [address] Care Team Providers Care Perpetual Inventory Clerk Name Role Phone Washington Puckett MD Primary Care Provider [phone] Reason for Referral * Diagnostic Test (Routine) - Closed Specialty Diagnoses / Procedures Referred By Contac t Referred To Contact Radiology Diagnoses Disorder of rotator cuff of both shoulders Procedures MRI Shoulder wo Contrast Left (Generic) Oliver Carter MD [facility] [place] [address] [place] [address] Referral ID Status Reason Start Date Expiration Date V isits Requested Visits Authorized [id number] Closed Specialty Service Requested 03/02/2019 03/01/2020 1 1 Reason for Visit * Diagnostic Test (Routine) - Closed Specialty Diagnoses / Procedures Referred By Controger t Referred To Contact Radiology Diagnoses Disorder of rotator cuff of both shoulders Procedures MRI Shoulder wo Contrast Left (Generic) Oliver Carter MD [facility] [place] [address] [place] [address] Referral ID Status Reason Start Date Expiration Date V isits Requested Visits Authorized [id number] Closed Specialty Service Requested 03/02/2019 03/01/2020 1 1 Encounter Details Date Type Department Care Team (Latest Contact Info) Description 03/30/2019 10:06 AM EDT - 03/30/2019 11:59 PM EDT Hospital Encounter MRI at [facility] [place] [address] Oliver Carter MD [facility] [place] [address] Disorder of rotator cuff of both shoulders Discharge Disposition: Home Social History Tobacco Use [...] Sig Dispensed Refills Start Date End Date tamsulosin (FLOMAX) 0.4 mg Capsule 0 03/25/2019 Psyllium Seed-Sucrose (0) Powder Take by mouth. ibuprofen (ADVIL;MOTRIN) 200 mg Tablet Take 200 mg by mouth every 6 hours as needed for Pain. docusate sodium (COLACE) 100 mg Capsule Take 100 mg by mouth 2 times daily. UNABLE TO FIND nightly. Med Name: CBD acetaminophen (TYLENOL) 500 mg Tablet Take 1,000 mg by mouth every 6 hours as needed for Pain. Garlic 100 mg Tablet Take by mouth. traMADol (ULTRAM) 50 mg TabletIndications:PRN nightly 25 [...] needed. 25 mg - 50 mg prn documented as of this encounter Plan of Treatment Not on file documented as of this encounter Procedures Procedure Name Priority Date/Time Associated Diagnosis Comments MRI SHOULDER LEFT WO CONTRAST Routine 03/30/2019 11:00 AM EDT Disorder of rotator cuff of both shoulders documented in this encounter Results * MRI Shoulder wo [...] the number below. ? Electronically signed by: Emperatriz Almanza [facility] ([phone]), at 03/30/2019 12:21 PM Narrative 03/30/2019 12:21 [...] this report, please contact the number below. Electronically signed by: Emperatriz Almanza [facility]([phone]), at 03/30/2019 12:21 PM Oliver Carter MD IMG MRI ORDERABLES documented in this encounter Visit Diagnoses Diagnosis Disorder of rotator cuff of both shoulders Disorders of bursae and tendons in shoulder region, unspecified documented in this encounter Care Teams Perpetual Inventory Clerk Relationship Specialty Start Date End Date Washington Puckett MD [address] [place] [address] PCP - General Internal Medicine 09/12/17 01/25/24 documented as of this encounter
--- OUTSIDE RECORDS SUMMARY | 2024-03-12 00:10 | XMS_ITS | Encounter Summary ---
Author Organization [facility] Address [facility] [place] [address] Care Team Providers Care Setter Automatic Spinning Lathe Name Role Phone Washington Puckett MD Primary Care Provider [phone] Reason for Visit * Reason Comments Bilateral Shoulder Pain bi SHOULDER PAIN - increased pain Encounter Details Date Type Department Care Team (Late st Contact Info) Description 02/08/2020 8:00 AM EDT Office [place] [address] Oliver Carter MD [facility] [place] [address] Disorder of rotator cuff of both shoulders [...] Pulse 70 02/08/2020 8:11 AM EDT Temperature - - Respiratory Rate - - Oxygen Saturation - - Inhaled Oxygen Concentration - - Weight 79 kg (174 lb 1.6 oz) 02/08/2020 8:11 AM EDT Height 177.8 cm (5' 10) 02/08/2020 8:11 AM EDT Body Mass Index 24.98 02/08/2020 8:11 AM EDT documented in this encounter Progress Notes * Oliver Carter MD - 02/08/2020 8:00 AM EDT Mr. Cat returns for reevaluation of his bilateral shoulder rotator cuff tears. 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 He continues to do well as it relates to function maintaining the ability to get his arms through a near full arc of abduction and forward flexion as well as internal and external rotation but his symptoms of night pain continue to be a problem. He states throughout the day he has very minimal pain and is able to do all the activities that he desires. He, however, does take significant amounts of various medications from NSAIDs, Tylenol, Xanax, and tramadol to allow him to sleep at night. Physical exam demonstrates both shoulders to have the ability to fully abduct and forward flex. He externally rotates to about 50 degrees bilaterally and internally rotates to about T7. He has negative liftoff signs bilaterally. His right shoulder does lack a few degrees of abduction and has some slight weakness to the liftoff test but otherwise he has remarkable function on that side. Assessment and plan: Bilateral rotator cuff tears of large size for which this patient has chosen to continue with nonoperative measures even though surgery has been related as an option for him. He would like to proceed with an injection on his right side which I think is reasonable since this is an irreparable side.The correct shoulder for injection was identified. The [...] of their symptoms. We will plan on seeing him on an as-needed basis. If he does decide to proceed with surgery on his left we will likely have to repeat his MRI prior to that to make sure that his rotator cuff tear continues to appear repairable. Oliver Carter MD [employer] Orthopaedic Surgery Dept. of Orthopaedic Surgery [facility] documented in this encounter Plan of [...] 40 mg, Intra-articular, ONCE, 1 dose, On Fri02/08/20 at 0845, Routine Given 02/08/2020 8:29 AM EDT 40 mg documented in this encounter Care Teams Setter Automatic Spinning Lathe Relationship Specialty Start Date End Date Washington Puckett MD [address] [place] [address] PCP - General Internal Medicine 09/12/17 01/25/24 documented as of this encounter
--- OUTSIDE RECORDS SUMMARY | 2024-03-12 00:10 | XMS_ITS | Encounter Summary ---
Author [facility] [place] [address] Care Team Providers Care Forensic Photographer Name Role Phone Diana Weaver MD Primary Care Provider [phone] Encounter Details Date Type Department Care Team (Late st Contact Info) Description 06/02/2017 [place] [address] Washington Deluca MD [facility] [place] [address] Social History Tobacco Use Types Packs/Day Years [...] encounter Miscellaneous Notes * Telephone Encounter - Washington Deluca MD - 06/02/2017 11:[address] Goncalves from [facility] requested transfer for this 71-year-old who developed aphasia at 930 this morning. I saw him last year for different episodes that included some difficulty speaking but were alsoassociated with either sensory symptoms or visual symptoms that sounded like migraine aura. Today he initially had an isolated moderate expressive aphasia and they were discussing thrombolytics with him and his aphasia worsened. Current NIH stroke scale score is 6. Blood pressure was initially elevated at 180/100 and now the systolic blood pressures in the 160s. I spoke to Dr. Goncalves on approximately 02/08/1956 and alteplase was going to be started and he was going to be transported by air to the ICU. 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 documented in this encounter Plan of Treatment Not on file documented as of this encounter Visit Diagnoses Not on filedocumented in this encounter Care Teams Forensic Photographer Relationship Specialty Start Date End Date Diana Weaver MD [address] [place] [address] PCP - General 05/22/10 09/11/17 documented as of this encounter
--- OUTSIDE RECORDS SUMMARY | 2024-03-12 00:10 | XMS_ITS | Encounter Summary ---
Author Organization [facility] Address [facility] [place] [address] Care Team Providers Care Claims Adjuster Crop Name Role Phone Washington Puckett MD Primary Care Provider [phone] Reason for Visit * Reason Comments Follow-up left shoulder pain Encounter Details Date Type Department Care Team (Late st Contact Info) Description 10/29/2018 10:20 AM EDT Office [place] [address] Lara Amor APRN [facility] [place] [address] Rotator cuff tendinitis, left Social History Tobacco Use Types Packs/Day Years [...] Sign Reading Time Taken Comments Blood Pressure 140/78 10/29/2018 10:41 AM EDT Pulse 70 10/29/2018 10:41 AM EDT Temperature - - Respiratory Rate - - Oxygen Saturation - - Inhaled Oxygen Concentration - - Weight 86.6 kg (191 lb) 10/29/2018 10:41 AM EDT Height 177.8 cm (5' 10) 10/29/2018 10:41 AM EDT Body Mass Index 27.41 10/29/2018 10:41 AM EDT documented in this encounter Progress Notes * Lara Amor, STRATEGIC ACCOUNT EXECUTIVE - 10/29/2018 10:20 AM EDT S: Alvin Cat is a 73 y.o. male who presents to clinic with left shoulder pain secondary to chronic rotator cuff injury and tendinosis. He is undergone subacromial cortisone injections in the past which have been affected. Last one was in March 2018. He requests another one as he is not ready to contemplate surgical intervention. Reports pain mainly at night about lateral aspect of shoulder. Reports he is otherwise well today without fever, chills, night sweats or any signs of infection. O: Alert and oriented. No apparent distress. Examination left shoulder reveals intact skin without erythema or ecchymosis. Patient demonstrates approximately 170 degrees of active forward flexion abduction, 60 degrees of external rotation with arm at side, and internal rotation to beltline. Rotatorcuff strength 4/5 with forward flexion abduction, 5/5 internal/external rotation. A/P: 73-year-old male with chronic left shoulder pain secondary to rotator cuff injury and tendinosis. Discussed to be appropriate to try another subacromial injection at today's visit. Discussed with patient that if his symptoms return or he has worsening his pain, would recommend revisiting the idea of arthroscopy with Dr. Carter. See procedure note below. Follow-up PRN. Procedure I discussed the risks and benefits of injecting the joint with Cortisone such as, bleeding, infection, and failure to alleviate symptoms. The patient verbalized understanding and chose to proceed with the procedure. The skin about the posterior left shoulder was prepped with DuraPrep and the left subacromial space was injected with 10mg/1mL 1% Lidocaine without epinephrine with a #27 gauge needlefollowed by mixture of 40 mg/1mL Kenalog mixed with 30mg/3mL Lidocaine w/out epinephrine with a #22gauge needle. A bandaid and DSG was then applied to the injection site. The patient tolerated the procedure well and is without complication. He was advised to keep the sterile dressing on for 24 hour s and refrain from any vigorous activities today. He was also advised to report and signs or symptoms of infection in the joint such as redness, swelling, drainage, or fever immediately. documented in this encounter Plan of Treatment Not on file documented as of this encounter Visit Diagnoses Diagnosis Rotator cuff tendinitis, left documented in this encounter Administered Medications Inactive Administered Medications - up to 3 most recent administrations Medication Order MAR Action Action Date Dose Rate Site triamcinolone acetonide (KENALOG-40) injection 40 mg 40 mg, Intra-articular, ONCE, 1 dose, On Shazia 10/29/18 at 1045, Routine Given 10/29/2018 10:22 AM EDT 40 mg documented in this encounter Care Teams Claims Adjuster Crop Relationship Specialty Start Date End Date Washington Puckett MD [address] [place] [address] PCP - General Internal Medicine 09/12/17 01/25/24 documented as of this encounter
--- OUTSIDE RECORDS SUMMARY | 2024-03-12 00:10 | XMS_ITS | Encounter Summary ---
Author Organization [facility] [place] [address] Care Team Providers Care Fingerer Name Role Phone Diana Weaver MD Primary Care Provider [phone] Encounter Details Date Type Department Care Team (Latest Contact Info) Description 06/02/2017 12:30 PM EST - 06/02/2017 1:24 PM [facility] Hospital Encounter [place] [address] Washington Deluca MD [facility] DR [place] [address] Discharge Disposition: Other Short Term [facility] Hospital Social History Tobacco Use Types Packs/Day Years [...] on filedocumented in this encounter Care Teams Fingerer Relationship Specialty Start Date End Date Diana Weaver MD [address] [place] [address] PCP - General 05/22/10 09/11/17 documented as of this encounter
--- OUTSIDE RECORDS SUMMARY | 2024-03-12 00:11 | XMS_ITS | Encounter Summary ---
[facility] Organization [facility] Address [place] [address] Care Team Providers Care Transfer Coordinator Name Role Phone Diana Weaver MD Primary Care Provider [phone] Encounter Details Date Type Department Care Team (Latest Contact Info) Description 02/23/2014 11:42 AM EDT - 02/23/2014 11:59 PM EDT Hospital Encounter XRay at [address] [place] [address] Bilateral hand pain Social History Tobacco Use Types Packs/Day Years Used Date Smoking Tobacco: Former Cigarettes Q uit: 03/13/1981 Smokeless Tobacco: Never Alcohol Use Standard Drinks/Week Comments Yes 2 (1 standard drink = 0.6 oz pur e alcohol) sometimes , daily Sex and Gender Information Value Date Recorded Sex Assigned at Not on file Gender Identity Not on file Sexual Orientation Not on file documented as of this encounter Medications at Time of Discharge Medication Sig Dispensed Refills Start Date End Date sildenafil (VIAGRA) 100 mg tablet Take 100 mg by mouth as needed. 25 mg - 50 mg prn diphenhydrAMINE-Acetami nophen 25-500 mg Tablet Take 2 tablets by mouth nightly. 03/11/2017 ALPRAZolam (XANAX) 0.25 mg tablet Take 0.25 mg by mouth nightly as needed. 06/01/2015 clindamycin (CLEOCIN) 150 mg capsule Take 150 mg by mouth 2 times daily. Prior to dental procedures 06/02/2017 acetaminophen (TYLENOL) 500 mg tablet Take 1,000 mg by mouth 2 times daily. 01/10/2011 06/18/2017 ibuprofen (ADVIL;MOTRIN) 200 mg tablet Take 600 mg by mouth 2 times daily as needed. 01/10/2011 5 documented as of this encounter Plan of Treatment Not on file documented as of this encounter Procedures Procedure Name Priority Date/Time Associated Diagnosis Comments XR HANDS MIN 3 VIEWS BILAT Routine 02/23/2014 12:04 PM EDT Bilateral hand pain documented in this encounter Results * XR Bilateral Hands Minimum 3 Views (02/23/2014 12:04 PM EDT) Anatomical Region Laterality Modality Hand Bilateral Radiographic Marsha ging 02/23/2014 12:0 4 PM EDT Narrative 02/23/2014 2:11 PM EDT Examination BILATERAL HANDS MIN 3 VIEWS Clinical History bilat hand pain Comparison None. Technique 3 views bilateral hands. Findings Right hand: ??No acute fracture or dislocation is identified. ??There are varying degrees of eccentric joint space narrowing with subchondral sclerosis, osteophytes and small subchondral cyst involving all the PIP and DIP joints throughout the hand compatible with osteoarthropathy. Additional joint space narrowing with subchondral sclerosis and osteophytes at the long finger MCP joint compatible osteoarthropathy. Minimal osteophyte formation at the radial styloid at the radioscaphoid articulation. ??Mild ulnar minus variance is noted. ?? Small calcification adjacent to the tip of the ulnar styloid as well as at the dorsal margin of the triquetrum is noted may represent sequela of remote avulsive injury. ??There is a suggest no discrete erosions identified. ?? Left hand: ??No acute fracture or dislocation is identified. ??There is relatively diffuse IP joint osteoarthropathy characterized by varying degrees of joint space narrowing with subchondral sclerosis, scattered subchondral cysts and osteophyte formation most advanced at the PIP joints of the long and ring finger. ??A approximately 8 mm ovoid lucency within the head of the long finger proximal phalanx at the PIP joint is noted with sclerotic rim is favored to represent a large subchondral cyst. ??The MCP joint spaces appear maintained as do the joint spaces at the wrist. ??Mild ulnar minus variance is noted. ??No chondrocalcinosis or discrete erosion is seen. ??There is suggestion of mild soft tissue swelling overlying the PIP joints of the long and ring fingers. Impression ? 1. No acute fracture or dislocation. ? 2. 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 Procedure Note Socrates Mcdowell MD - 02/23/2014 Examination BILATERAL HANDS MIN 3 VIEWS Clinical History bilat hand pain Comparison None. Technique 3 views bilateral hands. Findings Right hand: No acute fracture or dislocation is identified. There arevarying degrees of eccentric joint space narrowing with subchondral sclerosis, osteophytes and small subchondral cyst involving all the PIP and DIPjoints throughout the hand compatible with osteoarthropathy. Additional jointspace narrowing with subchondral sclerosis and osteophytes at the long fingerMCP joint compatible osteoarthropathy. Minimal osteophyte formation at theradial styloid at the radioscaphoid articulation. Mild ulnar minus variance isnoted. Small calcification adjacent to the tip of the ulnar styloid as well as atthe dorsal margin of the triquetrum is noted may represent sequela of remote avulsive injury. There is a suggest no discrete erosions identified. Left hand: No acute fracture or dislocation is identified. There is relatively diffuse IP joint osteoarthropathy characterized by varyingdegrees of joint space narrowing with subchondral sclerosis, scattered subchondral cysts and osteophyte formation most advanced at the PIP joints of the longand ring finger. A approximately 8 mm ovoid lucency within the head of thelong finger proximal phalanx at the PIP joint is noted with sclerotic rim isfavored to represent a large subchondral cyst. The MCP joint spaces appearmaintained as do the joint spaces at the wrist. Mild ulnar minus variance is noted.No chondrocalcinosis or discrete erosion is seen. There is suggestion ofmild soft tissue swelling overlying the PIP joints of the long and ringfingers. Impression 1. No acute fracture or dislocation. 2. Relatively diffuse IP joint osteoarthropathy throughout bothhands, as above as well as involving the right long finger MCP joint. Florentino Gregorio MD IMG DX ORDERABLES documented in this encounter Visit Diagnoses Diagnosis Bilateral hand pain Pain in limb documented in this encounter Care Teams Transfer Coordinator Relationship Specialty Start Date End Date Diana Weaver MD [address] [place] [address] PCP - General 05/22/10 09/11/17 documented as of this encounter
--- OUTSIDE RECORDS SUMMARY | 2024-03-12 00:11 | XMS_ITS | Encounter Summary ---
Author Organization [facility] Address [facility] [place] [address] Care Team Providers Care Fire And Explosion Investigator Name Role Phone Diana Weaver MD Primary Care Provider [phone] Encounter Details Date Type Department Care Team (Late st Contact Info) Description 02/05/2016 9:30 AM EDT Office Visit Physical Therapy at [facility] [address] [place] [address] Marvin Wiseman, PT [facility] PHYSICAL MEDICINE & [place] [address] Acute pain of both shoulders Social History Tobacco Use Types Packs/Day Years Used Date Smoking Tobacco: Former Cigarettes Q uit: 03/13/1981 Smokeless Tobacco: Never Alcohol Use Standard Drinks/Week Comments Yes 14 (1 standard drink = 0.6 oz pu re alcohol) sometimes , daily Sex and Gender Information Value Date Recorded Sex Assigned at Not on file Gender Identity Not on file Sexual Orientation Not on file documented as of this encounter Progress Notes * Marvin Wiseman, PT - 02/05/2016 9:30 AM EDT PHYSICAL THERAPY PROGRESS NOTE Date of Exam/First Treatment: 02/05/2016 Date of onset: 5 weeks Referring Provider: Diana Weaver Total Treatment time: 45 minutes Total Timed Code Treatment: 40 minutes Primary: Payor: MEDICARE / Plan: MEDICARE PART A & B / Product Type: *No Product type* / Medicare Certification period: 02/05/2016 - 01/23/17 = old New: Medicare Certification period: 01/18/2016 - 03/20/17 Medicare Therapy G-Code Date Tracking: (Update G-Code status every 10 visits or when code changes) 1 2 3 4 5 6 7 8 9 10 11/23 12/10 12/18 12/25 01/03 01/10 01/17 801/17 Diagnosis: 1. Acute pain of both shoulders S: Patient reports he is getting to 110 deg. Able to do cross arm adduction. The pool is the most useful. - ay at 9 am, Ortho at 10 pm. Functional Limitations / Exacerbating factors of pain: sleeping, right arm elevation, reaching forward O: Upper Extremity Range of Motion (ROM) and Strength (MMT): Affected Side: bilateral ?? AROM RIGHT AROM LEFT Shoulder flexion 0-138*, passive near full 80 deg to 140 0-145, passive near full abduction 0-135* significant winging, passive near full 65 deg to 90 0-150, passive near full ER 0-72*, passive near full 75 deg 0-80*, ~ 80 deg IR L3* L3 T12* ?? ube warm up level 2.5 x 3 min ?? pullies ?? Sleeper stretch ?? PROM and joint mobilizations, gr 3 posterior/traction/inferior ?? AAROM with cane ?? Wall ER stretch with contract relax ?? Abduction with inferior [place]/asus: 52/53 vs 52 = same A: Pt continues to make gradual gains, but has significant painful arc at times. Able to gain better motion after session and acupuncture is helping. Ortho visit pending, then continue from there pending their recommendations. P: Continue per PT POC and goals. 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 Pt saw ortho for his shoulders a few years ago that reported 4/5 ER weakness and some impingement signs. Today, he presents with bilateral impingement R > L and weakness in the right external rotators at a 4/5. This pain may be pain inhibition/impingment as flexion is a little weak as well or it may be a partial RC tear. Will work on ROM and strengthening for 8 weeks and reassess. Expect with skilled physical therapy interventions patient will be able to return to prior level offunction. GOALS: Therapy Short Term Goals (3 weeks) Patient to... 1. be indep with home exercise program. 2. improve LILIBETH/ASES score by 9 points for statistically significant improvement in functional mobility and use of the affected shoulder. 3. Reduce pain by 50-75% with functionally limited activities above 4. Gain 75% of AROM in order maximize function Therapy Drum Tender Goals (8 weeks) Patient to... 1. improve LILIBETH/ASES score by 15 points to demo statistically significant improvement in functionalmobility and use of the affected shoulder. 2. Reduce pain by 85-100% with functionally limited activities above 3. Gain 85-100% of AROM in order maximize function G-Code: Carrying, Moving & Handling Objects Status Modifier CURRENT CK - At least 40 percent but less than 60 percent impaired, limited or restricted PROJECTED CI - At least 1 percent but less than 20 percent impaired, limited or restricted DISCHARGE Not Discharged Yet - Ongoing G Code Rationale: This G-Code and these disability modifiers were selected as the primary therapy goal based upon the patient's evaluation including the following functional test(s) LILIBETH/ASES - Shoulder Score. Current ability measures, co-morbidities and clinical judgement were also used to select the disability modifier. This Patient's current G-Code functional level is 52% impaired based upon LILIBETH/ASUS. INITIAL TREATMENT INCLUDED; Examination and instruction in a home exercise program (refer to scan doc in the electronic medical record), patient education regarding physical therapy plan of care, anatomy and diagnosis. STRETCHING ?? pect stretch ?? Sleeper stretch ?? Cane: Flex, ab, IR (hand behind back), ER at neutral PLAN: Frequency and Duration: 1-2 x's per week x 8 weeks. Manual Techniques, Soft tissue mobilization, Stretching, Joint mobilization, Therapeutic exercise, Modalities (PRN to control pain and inflammation) ICE , Patient/Family education, Body Mechanics, Posture and Home Exercise Program MARVIN WISEMAN PT * Marvin Wiseman PT - 02/05/2016 9:30 AM EDT Medicare Certification period: 02/05/2016 - 01/24/16 = old New: Medicare Certification period: 01/18/2016 - 03/20/16 ?? Medicare Therapy G-Code Date Tracking: (Update G-Code status every 10 visits or when code changes) 1?? 2?? 3?? 4?? 5?? 6?? 7?? 8?? 9?? 10?? 11/23?? 12/10?? 12/18?? 12/25?? 01/03?? 01/10?? 01/17?? 8? 01/17? documented in this encounter Plan of Treatment Not on file documented as of this encounter Visit Diagnoses Diagnosis Acute pain of both shoulders documented in this encounter Care Teams Fire And Explosion Investigator Relationship Specialty Start Date End Date Diana Weaver MD [address] [place] [address] PCP - General 05/22/10 09/11/17 documented as of this encounter
--- OUTSIDE RECORDS SUMMARY | 2024-03-12 00:11 | XMS_ITS | Encounter Summary ---
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 Discharge Disposition: Home Social History Tobacco Use Types Packs/Day Years Used Date Smoking Tobacco: Former Cigarettes Q uit: 03/13/1981 Smokeless Tobacco: Never Alcohol Use Standard Drinks/Week Comments Yes 0 (1 standard drink = 0.6 oz pur e alcohol) sometimes Sex and Gender Information Value Date Recorded Sex Assigned at Not on file Gender Identity Not on file Sexual Orientation Not on file documented as of this encounter Last Filed Vital Signs Vital Sign Reading Time Taken Comments Blood Pressure 145/90 04/22/2013 10:44 AM EDT Pulse 69 04/22/2013 10:44 AM EDT Temperature - - Respiratory Rate - - Oxygen Saturation - - Inhaled Oxygen Concentration - - Weight 90.1 kg (198 lb 9.6 oz) 04/22/2013 10:44 AM EDT Height 179.1 cm (5' 10.5) 04/22/2013 10:44 AM E DT Body Mass Index 28.09 04/22/2013 10:44 AM EDT documented in this encounter Progress Notes * Raji Peterson PA - 04/22/2013 11:10 AM EDT PATIENT NAME: Alvin Cat AGE: 67 y.o. 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 PROCEDURE PERFORMED: Bilateral total knee arthroplasty. STAFF: The patient was seen and the plan was formulated in conjunction with Dr. Post. CHIEF COMPLAINT: Follow-up of bilateral total knee arthroplasties HISTORY OF PRESENT ILLNESS Mr. Cat a 67 y.o. year old male comes into clinic today for follow-up of the above surgeries. He feels like his right knee in the right knee, he has a feeling like a twisted feeling, noted more on steep set of stairs or hiking. This incision over the last for about an hour to a does not feel the pain more than 2 times and 100 days. The patient is otherwise well. ROS: negative for fever, chills, chest pain, shortness of breath, nausea or vomiting. Physical Exam Blood pressure 145/90, pulse 69, height 179.1 cm (5' 10.5), weight 90.084 kg (198 lb 9.6 oz). Constitutional: oriented to person, place, and time and well-developed, well- nourished, and in no distress. Skin: Skin is warm and dry. Bilateral Knee Exam Comments: Comes in without antalgia. No effusion. Mild crepitus over the lateral patellar pole with ROM. I have made the following determinations: Post Op Right Knee Exam: Gait Abnormality: Normal Knee ROM: Extension:0 Flexion: 120 Alignment: 0-4 degrees Neutral Stability: A/P Translation <5mm. Varus (lateral stability)<5mm Valgus (medial stability) <5mm Extension La degrees or less Patella Tracking: Normal Pulses Palpable: Right PT: Yes Right DP:Yes Motor/Sensory: Distal Motor: Normal Distal Sensory: Normal Quadriceps Strength: 5 I have made the following determinations: Post Op Left Knee Exam: Gait Abnormality: Normal Knee ROM: Extension:0 Flexion: 120 Alignment: 0-4 degrees Neutral Stability: A/P Translation <5mm Varus (lateral stability) <5mm Valgus (medial stability) <5mm Extension La degrees or less Patella Tracking: Normal Pulses Palpable: Left PT:Yes Left DP:Yes Motor/Sensory: Distal Motor: Normal Distal Sensory: Normal Quadriceps Strength:5 RADIOLOGICAL STUDIES: I reviewed images of the bilateral knee taken today, which included, AP &Lateral images, which showed Impression Status post bilateral total knee replacement. Mild left quadriceps tendon calcification is unchanged. No sign of loosening or infection of bilateral total knee prostheses. ASSESSMENT/PLAN: The patient was seen and the plan was formulated in conjunction with Dr. Post. Alvin Cat is a 67 y.o. male presents to the clinic with A postoperative evaluation of bilateral total knee arthroplasties performed in April 2000 and . The patient is doing very wellpostoperatively. He reports that he is having some rare intermittent symptoms of the right knee which may be secondary to small amount of scar formation present. We have asked him to continue to monitor her symptoms closely and if they were to worsen or persist that he should return for further evaluation. We discussed the appropriate precautions surrounding dental prophylaxis and and they could call theoffice for a prescription prior to any dental work for the lifetime of the joint replacement. We also discussed the importance maintaining good foot care and giving prompt attention to any source of infection throughout the body including foot ulcers and urinary tract infections. Discussed with patient indications for prompt return or to call the clinic if they have any questions, otherwise they will follow-up 2 years with repeat imaging and with their PCP as scheduled. 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
--- OUTSIDE RECORDS SUMMARY | 2024-03-12 00:11 | XMS_ITS | Encounter Summary ---
Author Organization [facility] Address [facility] [place] [address] Care Team Providers Care Parlor Chaperone Name Role Phone Diana Weaver MD Primary Care Provider [phone] Encounter Details Date Type Department Care Team (Late st Contact Info) Description 12/11/2015 1:30 PM EDT Office Visit Physical Therapy at [facility] [address] [place] [address] Marvin Wiseman, PT [facility] PHYSICAL MEDICINE & [place] [address] Acute pain of both shoulders Social History [...] Progress Notes * Marvin Wiseman, PT - 12/11/2015 1:36 PM EDT PHYSICAL THERAPY PROGRESS NOTE Date of Exam/First Treatment: 12/11/2015 Date of onset: 5 weeks Referring Provider: Diana Weaver Primary: Payor: MEDICARE / Plan: MEDICARE PART A & B / Product Type: *No Product type* / Medicare Certification period: 12/11/2015 - 01/23/17 Medicare Therapy G-Code Date Tracking: (Update G-Code status every 10 visits or when code changes) 1 2 3 4 5 6 7 8 9 10 11/23 12/10 Diagnosis: 1. Acute pain of both shoulders S: Pain is about the same. He reports doing activity fine, but pain is only severe sleeping and lying down. He reports that the pills will help some, but not much. He goes to bed at 11-12 at night. O: C spine ?? left rotation 50 deg left ?? Right rotation 65 deg ?? Ext = 30 deg ?? + bakody's sign ?? Radicular symptoms in left to mid shaft humerus ?? Relieved left radicular symptoms with c spine distraction - traction not an option with recent TIA STRETCHING ?? pect stretch ?? Sleeper stretch (wall stretch causes impingement for posterior capsule stretch) ?? Cane: Flex, ab, IR (hand behind back), ER at neutral (from eval) Upper Extremity Range of Motion (ROM) and Strength (MMT): Affected Side: bilateral AROM RIGHT AROM LEFT Shoulder flexion 0-138*, passive near full 0-145, passive near full abduction 0-135* significant winging, passive near full 0-150, passive near full ER 0-72*, passive near full 0-80*, ~ 80 deg IR L3* T12* A/P: C spine appears to be a contributing factor to radicular symptoms, but recent TIA precludes the use of mechanical traction. Good response to IR loosening with stretching today. Continue neck andshoulder treatments. 45 minutes total 45 min therex XXXXXXXXXXX FROM EVALUATION [id number] CLINICAL EVALUATION [...] of AROM in order maximize function Therapy Culinary Intern Goals (8 weeks) Patient to... 1. improve [...] Body Mechanics, Posture and Home Exercise Program Total Treatment time: 60 minutes Total Timed Code Treatment: 0 minutes MARVIN WISEMAN PT documented in this encounter Plan of Treatment Not on file documented as of this encounter Visit Diagnoses Diagnosis Acute pain of both shoulders documented in this encounter Care Teams Parlor Chaperone Relationship Specialty Start Date End Date Diana Weaver MD [address] [place] [id number] PCP - General 05/22/10 09/11/17 documented as of this encounter
--- OUTSIDE RECORDS SUMMARY | 2024-03-12 00:11 | XMS_ITS | Encounter Summary ---
Author Organization [facility] Address [facility] [place] [address] Care Team Providers Care Hand Straightener Name Role Phone Diana Weaver MD Primary Care Provider [phone] Encounter Details Date Type Department Care Team (Late st Contact Info) Description 01/18/2016 9:15 AM EDT Office Visit Physical Therapy at [facility] [address] [place] [address] Marvin Wiseman, PT [facility] PHYSICAL MEDICINE & [place] [address] Acute pain of both shoulders Social History [...] Progress Notes * Marvin Wiseman, PT - 01/18/2016 9:15 AM EDT PHYSICAL THERAPY PROGRESS NOTE Date of Exam/First Treatment: 01/18/2016 Date of onset: 5 weeks Referring Provider: Diana Weaver Total Treatment time: 50 minutes Total Timed Code Treatment: 40 minutes Primary: Payor: MEDICARE / Plan: MEDICARE PART A & B / Product Type: *No Product type* / Medicare Certification period: 01/18/2016 - 01/23/17 = old New: Medicare Certification period: 01/18/2016 - 03/20/17 Medicare Therapy G-Code Date Tracking: (Update G-Code status every 10 visits or when code changes) 1 2 3 4 5 6 7 8 9 10 11/23 12/10 12/18 12/25 01/03 01/10 01/17 01/17 Diagnosis: 1. Acute pain of both shoulders S: Patient reports acupuncture is helping - keeping active and no pain meds during the day. Sleeping better. Less pain with exercises. Functional Limitations / Exacerbating factors of pain: [...] 80 deg IR L3* L3 T12* ?? Sleeper stretch ?? PROM and joint mobilizations, gr 3 posterior/traction/inferior ?? AAROM with cane ?? Answered many questions on anatomy, pathophysiology, natural history and treatment options, activity limitations and modifications [place]/asus: 52/53 vs 52 = same A: Pt continues to make gradual gains, but has significant painful arc at times. Able to gain better motion after session and acupuncture is helping. Lilibeth/Asus is about the same. Goals not met, continue PT for another 8 weeks. P: Continue per PT POC and goals. [...] of AROM in order maximize function Therapy [facility] Goals (8 weeks) Patient to... 1. improve [...] and Home Exercise Program MARVIN WISEMAN PT documented in this encounter Plan of Treatment Not on file documented as of this encounter Visit Diagnoses Diagnosis Acute pain of both shoulders documented in this encounter Care Teams Hand Straightener Relationship Specialty Start Date End Date Diana Weaver MD [address] [place] [id number] PCP - General 05/22/10 09/11/17 documented as of this encounter
--- OUTSIDE RECORDS SUMMARY | 2024-03-12 00:11 | XMS_ITS | Encounter Summary ---
[place] [address] Care Team Providers Care Interior Design Professional Name Role Phone Diana Weaver MD Primary Care Provider [phone] Reason for Visit * Reason Onset Date Comments Referral 12/23/2013 Encounter Details Date Type Department Care Team (Late st Contact Info) Description 12/23/2013 Telephone [place] [phone] Doreen Palafox, [facility] Referral Social History Tobacco Use Types Packs/Day Years [...] encounter Miscellaneous Notes * Telephone Encounter - Doreen Evans, [facility] - 12/23/2013 1:01 PM EDT Ask patient to verify the following: Full name: Alvin Cat : 1945 Phone number: [phone] (home) Mailing address: [address] [facility] [place] [address] Intake: bilat hand pain - right ring, left long finger Is this an injury that happened:no ?? At work? ?? Playing a sport? ?? If yes to either, what is DOI? Tell me how long you've had these symptoms? years Has anyone ever seen you before for this issue? pcp Have you tried: no ?? Physical Therapy ?? INJECTION ?? Other therapies Have you had any of the following studies for this issue? no ?? X-Ray ?? MRI ?? CT Scan ?? LABS Have you seen an Orthopaedic surgeon for the this issue? no If YES: Who did you see? Where were you seen (facility)? When? Phone # Fax# Have you ever had surgery for this issue? no If YES and different than above: Who performed surgery? Where did you have the surgery (facility)? When? Phone # Fax# If patient is implanted with hardware fixation or joint prosthesis retrieve OPERATIVE REPORT and IMPLANT STICKERS. documented in this encounter Plan of Treatment Not on file documented as of this encounter Visit Diagnoses Not on filedocumented in this encounter Care Teams Interior Design Professional Relationship Specialty Start Date End Date Diana Weaver MD [address] [place] [id number] PCP - General 05/22/10 09/11/17 documented as of this encounter
--- OUTSIDE RECORDS SUMMARY | 2024-03-12 00:11 | XMS_ITS | Encounter Summary ---
Author Organization [facility] Address [facility] [place] [address] Care Team Providers Care Performance Consultant Name Role Phone Diana Weaver MD Primary Care Provider [phone] Encounter Details Date Type Department Care Team (Latest Contact Info) Description 10/27/2015 - 10/27/2015 11:59 PM EDT Hospital Encounter [place] [address] Washington Deluca MD [facility] [address] Pain Discharge Disposition: Home Social History Tobacco [...] Take 2 tablets by mouth nightly. 03/11/2017 clindamycin (CLEOCIN) 150 mg capsule Take 150 mg by mouth 2 times daily. Prior to dental procedures 06/02/2017 acetaminophen (TYLENOL) 500 mg tablet Take 1,000 mg by mouth 2 times daily. 01/10/2011 06/18/2017 documented as of this encounter Plan of Treatment Not on file documented as of this encounter Procedures Procedure Name Priority Date/Time Associated Diagnosis Comments FILM LIBRARY STORAGE ONLY ULTRASOUND STUDY Routine 10/27/2015 12:00 AM EDT Pain documented in this encounter Results * Film Library- Storage only Ultrasound Study (10/27/2015 12:00 AM EDT) Narrative [facility] - 01/10/2016 9:07 AM EDT This exam is for storage only and is auto-finalizing. Washington Deluca MD IMG FILM LIBRARY O RDERABLES Performing Organization Address City/State/[facility] Co de Phone Number Line [place], [place] documented in this encounter Visit Diagnoses Diagnosis Pain Generalized pain documented in this encounter Care Teams Performance Consultant Relationship Specialty Start Date End Date Diana Weaver MD [address] [place] [address] PCP - General 05/22/10 09/11/17 documented as of this encounter
--- OUTSIDE RECORDS SUMMARY | 2024-03-12 00:11 | XMS_ITS | Encounter Summary ---
Author Organization [facility] Address [facility] [place] [address] Care Team Providers Care Straight Edger Name Role Phone Diana Weaver MD Primary Care Provider [phone] Encounter Details Date Type Department Care Team (Latest Contact Info) Description 06/01/2015 1:56 PM EST - 06/01/2015 11:59 PM EST Hospital Encounter XRay at [address] [place] [address] Ed Post MD [facility] [place] [address] Status post bilateral knee replacements Discharge Disposition: Home Social History Tobacco Use [...] XR KNEE AP AND LAT BILAT Routine 06/01/2015 2:06 PM EST Status post bilateral knee replacements documented in this encounter Results * XR Knee Bilateral 1 Or 2 View (06/01/2015 2:06 PM EST) Anatomical Region Laterality Modality Knee Bilateral Digital Radiogra phy Impressions 06/01/2015 2:26 PM EST IMPRESSION: Stable examination. Narrative 06/01/2015 2:26 PM EST EXAMINATION: XR KNEES 1 OR 2 VIEWS BILATERAL CLINICAL HISTORY: Status post bilateral knee replacements TECHNIQUE: Bilateral frontal, and lateral views of the knees, 3 views total. COMPARISON: 04/22/2013. FINDINGS: Bilateral knee prostheses in place without hardware complication identified. Subtle chronic calcification of the distal quadriceps tendon on the left is again appreciated. No evidence of joint effusion bilaterally. Bilateral patellar enthesophytes. Atherosclerotic change. Procedure Note Washington Alfaro MD - 06/01/2015 EXAMINATION: XR KNEES 1 OR 2 VIEWS BILATERAL CLINICAL HISTORY: Status post bilateral knee replacements TECHNIQUE: Bilateral frontal, and lateral views of the knees, 3 viewstotal. COMPARISON: 04/22/2013. FINDINGS: Bilateral knee prostheses in place without hardware complicationidentified. Subtle chronic calcification of the distal quadriceps tendon on the leftis again appreciated. No evidence of joint effusion bilaterally. Bilateralpatellar enthesophytes. Atherosclerotic change. IMPRESSION IMPRESSION: Stable examination. Ed Post MD IMG DX ORDERABLES documented in this encounter Visit Diagnoses Diagnosis Status post bilateral knee replacements documented in this encounter Care Teams Straight Edger Relationship Specialty Start Date End Date Diana Weaver MD [address] [place] [address] PCP - General 05/22/10 09/11/17 documented as of this encounter
--- OUTSIDE RECORDS SUMMARY | 2024-03-12 00:11 | XMS_ITS | Encounter Summary ---
Author Organization [facility] [place] [address] Care Team Providers Care Family Readiness Support Assistant Name Role Phone Diana Weaver MD Primary Care Provider [phone] Reason for Referral * Physical Therapy (Routine) - Closed Specialty Diagnoses / Procedures Referred By Ronald parada Referred To Contact Physical Therapy Diagnoses Disorder of rotator cuff of both shoulders Oliver Carter MD [facility] [place] [address] [address] [place] [address] Referral ID Status Reason Start Date Expiration Date V isits Requested Visits Authorized [id number] Closed Evaluate and Treat 04/16/2016 04/16/2017 1 1 Reason for Visit * Reason Comments Joint Pain L shoulder pain and pt. wants disucs surgical questions Encounter Details Date Type Department Care Team (Late st Contact Info) Description 04/16/2016 10:30 AM EDT Office Visit [place] [address] Oliver Carter MD [facility] [place] [address] Disorder of rotator cuff of both shoulders [...] Sign Reading Time Taken Comments Blood Pressure 135/67 04/16/2016 10:25 AM EDT Pulse 71 04/16/2016 10:25 AM EDT Temperature - - Respiratory Rate - - Oxygen Saturation - - Inhaled Oxygen Concentration - - Weight 86.2 kg (190 lb) 04/16/2016 10:25 AM EDT Height 177.8 cm (5' 10) 04/16/2016 10:25 AM EDT Body Mass Index 27.26 04/16/2016 10:25 AM EDT documented in this encounter Progress Notes * Yair Kelly - 04/16/2016 10:30 AM EDT ORTHOPEDIC SURGERY PROGRESS NOTE ID: A 70-year-old male, right massive rotator cuff tear, left rotator cuff impingement. SUBJECTIVE: Patient is a 70-year-old male originally expecting surgery on May 08 but he subsequently comes in today with many concerns and questions regarding whether or not surgery is the best option for him. 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 His pain is very well controlled with Tylenol and states his sleep is somewhat difficult at times but is being helped with Benadryl and cannabis, and sometimes with a Xanax, which he has taken previously and prescribed by his PCP. He notes that it is very manageable at this point and he is concerned that if he gets surgery, he us unsure of how much benefit he would actually receive from surgery compared to where he is at now. He also has some concerns on his left shoulder today, which he gets pain on the outside, wakes him up at night as well, and some pain with overhead activities on the left side, but it is not nearly as weak as the right side. OBJECTIVE: On physical exam today, he has 4/5 empty can's testing on the right, 5/5 on the left. He has a internal rotation slight deficit on the right compared to the left, only to the lumbar spine thoracolumbar on the left. He has a 5/5 strength internal and external rotation on the left, but a positive Mcghee and Neer's, negative Yergason's and Speed's on the left. On the right, he has, as I mentioned, weakness with empty can's testing as well as 4/5 with external rotation and positive impingement signs as well. IMAGING: Imaging was again reviewed with the patient, showing massive right rotator cuff tear with retraction to the middle to medial third of the humerus with a grade III atrophy of the supra- and infraspinatus. ASSESSMENT/PLAN: This is a 70-year-old male with a massive right rotator cuff tear and left rotator cuff impingement. We had a discussion today about whether operative arthroscopic debridement, decompression versus open or arthroscopic rotator cuff repair was the best surgical option for him. At this point, after our discussion, which we detailed the likely recovery and/or benefits from surgery versus nonoperative treatment and proceeding with anterior deltoid retraining, he was thinking that he would not proceed with surgery and attempt anterior deltoid retraining, as this can get him excellent motion, possibly improve that and strengthening. We talked about how the farther you get out from a tear, the less likely the tear becomes a repairable tear. In the future, that likely would not be an option if he were to still have pain and some dysfunction that he was unsatisfied with and that his likely only surgical option at that point would be consideration for an arthroscopic debridement, decompression and tenotomy and then if he developed severe OA, something like a reverse total shoulder replacement, but he is not quite to that point yet. Therefore, after this discussion, he was pleased with our outline of what to expect in terms of pursuing nonoperative management, especially since he is doing so well currently. I feel that nonoperative management is likely the best choice for him and he should go ahead and proceed and continue that. He has no other concerns today and we will give him a referral for deltoid retraining and see how it goes. Attending Note See Dr. Kelly's note for details. I saw and evaluated the patient and agree with the resident's findings and plans as written. The patient's diagnosis and treatment options were reviewed with the patient. 70 yo gentleman scheduled for RCR in 2 to 3 weeks for massive RC tear feels he is doing so well that he would like to cancel his surgery. We discussed that we may miss an opportunity to obta in a successful repair and he understands that. Since his weakness and pain are minimal he would like to hold off and perform an injection instead. He understands that injections may further breakdown tendon itself. The correct shoulder for injection was identified. [...] had immediate partial relief of their symptoms. Mr. Cat will call in the future for further treatment on this side or his newly symptomatic left side. Oliver Carter MD [employer] Orthopa[facility] documented in this encounter Plan of Treatment Scheduled Referrals Name Type Priority Associated Diagnoses Orde r Schedule Referral to Physical Therapy Outpatient Referral Routine Disorder of rotator cuff of both shoulders Ordered: 04/16/2016 documented as of this encounter Visit Diagnoses Diagnosis Disorder of rotator cuff of both shoulders Disorders of bursae and tendons in shoulder region, unspecified documented in this encounter Administered Medications Inactive Administered Medications - up to 3 most recent administrations Medication Order MAR Action Action Date Dose Rate Site triamcinolone acetonide (KENALOG-40) injection 40 mg 40 mg, Intra-articular, ONCE, 1 dose, On Fri04/16/16 at 1200, Routine Given 04/16/2016 11:44 AM EDT 40 mg documented in this encounter Care Teams Family Readiness Support Assistant Relationship Specialty Start Date End Date Diana Weaver MD [address] [place] [address] PCP - General 05/22/10 09/11/17 documented as of this encounter
--- OUTSIDE RECORDS SUMMARY | 2024-03-12 00:11 | XMS_ITS | Encounter Summary ---
[place] [address] Care Team Providers Care [employer] Coordinator Name Role Phone Diana Weaver MD Primary Care Provider [phone] Encounter Details Date Type Department Care Team (Late st Contact Info) Description 08/16/2013 2:22 PM EST - 08/16/2013 4:50 PM EST Surgery [place] [address] Renzo Dykes MD [address] [place] [address] [place] [address] LAPAROSCOPIC HERNIA REPAIR, INITIAL INGUINAL- MAYRA (WRVU 6.36) Social History Tobacco Use Types Packs/Day Years [...] Sign Reading Time Taken Comments Blood Pressure 132/71 08/16/2013 1:22 PM EST Pulse 71 08/16/2013 1:22 PM EST Temperature 36.5 ??C (97.7 ??F) 08/16/2013 1:22 PM ES T Respiratory Rate 18 08/16/2013 1:22 PM EST Oxygen Saturation 100% 08/16/2013 1:22 PM EST Inhaled Oxygen Concentration - - Weight 83.9 kg (185 lb) 08/16/2013 1:22 PM EST Height 179.1 cm (5' 10.5) 08/16/2013 1:22 PM ES T Body Mass Index 26.17 08/16/2013 1:22 PM EST documented in this encounter Discharge Instructions * Discharge Instructions* Matt Ron RN - 08/16/2013 10:47 PM EST POST ANESTHESIA INSTRUCTIONS Go home, rest, use caution on stairs. Change positions slowly. Do not smoke if you are alone. Diet light to regular as tolerated today. If nausea occurs start with clear liquids and progress slowly. No driving, operating machinery, alcoholic beverages and no important decisions for 24 hours. Monitor IV site for signs and symptoms of infection: increasing redness, swelling, foul drainage, if occurs contact M.D. Patients who have had endotrachial tubes (this tube, used by anesthesia department, is passed down your throat after you are asleep, to ensure safe air passage during your operation). A sore throat is normal due to the tube. Cold liquids or soothing lozenges will help ease the discomfort. The generalized muscle aches are due to the medication given to you just before the tube is inserted. As the medication wears off, you may develop muscle soreness, which usually goes away in 12-24 hours. * Patient Instructions* Niya Ibrahim MD - 08/16/2013 12:09 PM EST Instructions following Inguinal Hernia Repair Wound Care: Keep dressings on incisions for the next 2 days. Do not get dressings wet. If they becomes wet or soaked with drainage you may change them with fresh ones as needed. If there are pieces of tape directly on the incision (steri-strips or butterflys), please leave them on until they fall off on their own. You may trim them back as they begin to peel up. After 2 days you may remove dressing and leave open to air. You may now shower and get incision wet. Pat dry immediately following. Do not scrub incision vigorously for the next 2-3 weeks. Do not soak incision(s) under water for the next 5 days (i.e. soaking in bath or swimming) as this may promotea wound infection. Your stitches will dissolve and do not need to be removed. Men: Some bruising of the scrotum may occur following this operation and this is normal. The bruising may spread over the course of several days and will resolve within a few weeks. If you also have a large amount of swelling and pain associated with this bruising then please call. Activity: No heavy lifting more than 15 pounds for the next 3 weeks, then you may gradually lift heavier objects as tolerated by discomfort. Otherwise activity as tolerated by your comfort level. Call Doctor for: Please call if you notice worsening redness or drainage from incision(s) lasting longer than 5 days after your surgery, any foul-smelling drainage from the incision, pain not controlled by pain medications, persistent nausea and vomiting, or for any fevers greater than 101.3 F. The number for questions is [phone] before 5 PM weekdays and [phone] after 5 PM and weekends. Pain Medication: No driving for 8 hours after any dose of opioid pain medication if one was prescribed for you. You may use ibuprofen (motrin, advil) in addition to this medication if your pain is not totally controlled by the opioid. Follow-up: Follow-up appointment will be scheduled with Dr. Dykes in 3 weeks. Appointment will be mailed to you. Please call [phone](clinic number for appointments) to confirm date and time of your appointment if you do not receive your apointment in 3 weeks. documented in this encounter Medications at Time of Discharge Medication Sig Dispensed Refills Start Date End Date sildenafil (VIAGRA) 100 mg tablet Take 100 mg by mouth as needed. 25 mg - 50 mg prn oxyCODONE-acetaminophe n (PERCOCET) 5-325 mg per tablet Take 1-2 tablets by mouth every 4 hours as needed for Pain. 30 tablet 0 08/16/2013 09/01/2013 ALPRAZolam (XANAX) 0.25 mg tablet Take 0.25 mg by mouth nightly as needed. 06/01/2015 aspirin 81 mg tablet Take 81 mg by mouth daily. 02/23/2014 GLUCOSAM SUL NA/CHONDR NORTH A NA (GLUCOSAMINE & CHONDROIT SUL.NA ORAL) Take by mouth. multivitamin (THERAGRAN) tablet Take 1 tablet by mouth daily. 02/23/2014 amitriptyline (ELAVIL) 25 mg tablet Take 25 mg by mouth nightly. 02/23/2014 clindamycin (CLEOCIN) 150 mg capsule Take 150 mg by mouth 2 times daily. Prior to dental procedures 06/02/2017 acetaminophen (TYLENOL) 500 mg tablet Take 1,000 mg by mouth 2 times daily. 01/10/2011 06/18/2017 ibuprofen (ADVIL;MOTRIN) 200 mg tablet Take 600 mg by mouth 2 times daily as needed. 01/10/2011 06/01/2015 documented as of this encounter Progress Notes * Matt Ron RN - 08/16/2013 10:[address] Souza, an indwelling astudillo catheter was placed and pt given discharge instructions to home with catheter in place. Astudillo care reviewed w/pt and S.O. Pt will call Dr Dykes office tomorrow to let him know this ( I will email him as well) and receive followup plan. 325cc yellow urine obtained. documented in this encounter H&P Notes * Renzo Dykes MD - 08/16/2013 1:44 PM EST The patient's history and physical exam have been reviewed and completed. There has been no interval change from that of the pre-operative history and physical exam done within the last 30 days. documented in this encounter Procedure Notes * Provider, Scanning - 08/17/2013 5:55 PM ESTAssociated Order(s): SCAN DOC: IMPLANTABLE DEVICES documented in this encounter Miscellaneous Notes * Miscellaneous - Provider, Scanning - 08/17/2013 5:25 PM EST * Miscellaneous - Provider, Scanning - 08/17/2013 5:22 PM EST * Op Note - Renzo Dykes MD - 08/16/2013 5:29 PM EST [facility] [place] Patient Name: Alvin Cat : [id number] MR#: [id number] Case Date: 08/16/2013 Surgeon: Surgeon(s) and Role: * Renzo Dykes MD - Primary * Darrel Palafox MD * Pieter Butler MD - Resident-Lesser Role Preoperative diagnosis: bilat inguinal hernias Postoperative diagnosis: bilat inguinal hernias Procedure(s): LAPAROSCOPIC HERNIA REPAIR, INGUINAL INGUINAL- MAYRA MODIFIER TEPP MODIFIER MESH,ATRIUM CENTRIFX General Estimated Blood Loss: 10ml Drains: non3 Disposition: awakened from anesthesia, extubated and taken to the recovery room in a stable condition, having suffered no apparent untoward event. Condition: doing well without problems (Please see the Surgical Encounter Summary for any Implant and Specimen details pertinent to this patient.) HPI/Surgical Indications: Recurrent right inguinal hernia, large left inguinal hernia Procedure Description: COPY: Primary Care Doctor The date of service is 08/16/13. Procedure Description: Patient was placed in the supine position after a time out was performed, and the abdomen was prepped and draped in a sterile fashion. Transverse incision was made just inferior to the umbilicus after infiltration with 0.25% Marcaine with epinephrine. Subcutaneous tissues were sharply dissected down till the anterior rectus sheath was reached. This was opened sharply with a scalpel. The rectus muscle was retracted laterally, and a finger was placed over the posterior rectus sheath to dissect posterior to the rectus muscle. The Spacemaker Plus dissector system was placed into the preperitoneal space towards the pubic tubercle; and under direct vision with the camera, the balloon was inflated with 20 pumps. The balloon was removed. The space created was insufflated with CO2 and the pubic tubercle was identified and dissection was started at the pubic tubercle and loose areolar tissue until the inferior epigastric artery and vein were identified and the cord structures were identified and hernia within the direct space lateral to the epigastric vessels was visualized. Direct hernia was reduced, and the cord structures were visualized. There was no evidence of an indirect hernia. Displaced areolar tissue laterally to the cord was dissected to allow space for the mesh and the C-QUR CentriFX medium mesh was placed and tacked medially superior to the pubic tubercle and a tack was placed laterally at the anterior abdominal wall using the ProTack stapler. The left hernia was then dissected starting with blunt dissection till the inferior epigastric artery was identified. There was hernia both medial and lateral to the epigastric vessels. Direct hernia was first reduced, and indirect sac was dissected away from the cord structures. The vas deferens and gonadal vessels were identified and dissected free from the indirect hernia sac, which was reduced inferiorly. Dissection was then taken laterally, and loose areolar tissue was dissected creating a space for the mesh. Medium CentriFX mesh was then placed, tacked medially and laterally above the pubic tubercle, medially and lateral was tacked in the anterior abdominal wall. The mesh was then held in place with graspers as the insufflation was released and the mesh laid down flat. Trocars were then removed and the anterior rectus sheath was closed with 0 PDS [id number] suture and the skin was closed with 4-0 Monocryl subcuticular closure at all trocar sites. Steri-Strips and a dry dressing were applied. The patient tolerated the procedure well. There was approximately 10 mL of blood loss and no complications. * OR Attestation - Renzo Dykes MD - 08/16/2013 5:28 PM EST Attestation: Case Date: 08/16/2013 I was present and I participated during the entire procedure (does not need to include opening and closing). RENZO DYKES MD 08/16/2013 * Miscellaneous - Chuy Ramirez - 08/16/2013 2:06 PM EST documented in this encounter Plan of Treatment Not on file documented as of this encounter Procedures Procedure Name Priority Date/Time Associated Diagnosis Comments IMPLANTABLE DEVICES SCAN 08/17/2013 5:55 PM EST MODIFIER MESH,ATRIUM CENTRIFX (DELETED) 08/16/2013 2:41 PM EST bilat inguinal hernias MODIFIER TEPP 08/16/2013 2:41 PM EST bilat inguinal hernias LAPAROSCOPIC HERNIA REPAIR, INITIAL INGUINAL- MAYRA (WRVU 6.36) 08/16/2013 2:41 PM EST bilat inguinal hernias documented in this encounter Results * SCAN DOC: IMPLANTABLE DEVICES (08/17/2013 5:55 PM EST) Narrative 08/17/2013 5:55 PM EST Procedure Note Provider, Scanning - 08/17/2013 5:55 PM EST Scanning Provider MEDIA MGR SCAN EXT O RDR/RSLT documented in this encounter Visit Diagnoses Not on filedocumented in this encounter Administered Medications Inactive Administered Medications - up to 3 most recent administrations Medication Order MAR Action Action Date Dose Rate Site BUpivacaine-EPINEPHrine 0.25 %-1:200,000 injection ONCE PRN, Starting on Fri08/16/13 at 1704, Until Fri08/16/13 at 2314, Intra-Operative (Intra-Procedure), Routine Given 08/16/2013 5:04 PM EST 12 mLs 19- Surgical Site fentaNYL 50mcg/mL injection 25-50 mcg, Intravenous, EVERY 5 MIN PRN, Starting on Fri08/16/13 at 1722, Until Fri08/16/13 at 2314, Pain, for breakthrough pain, Hold for respiratory rate less than 10 per minute. Maximum dose: 250 mcg over one hour., PACU Recovery, Routine Given 08/16/2013 6:36 PM EST 25 mcg Given 08/16/2013 6:17 PM EST 25 mcg Given 08/16/2013 6:11 PM EST 25 mcg lactated ringers infusion 1,000 mL 1,000 mL, at 100 mL/hr, Intravenous, CONTINUOUS, Starting on Fri08/16/13 at 1415, Until Fri08/16/13 at 2314, Day of Surgery (Day of Procedure) New Bag 08/16/2013 4:09 PM EST mL New Bag 08/16/2013 2:00 PM EST 1,000 mLs 100 mL/hr oxyCODONE-acetaminophen (PERCOCET) 5-325 mg per tablet 1-2 tablet 1-2 tablet, Oral, EVERY 4 HOURS PRN, Starting on Fri08/16/13 at 1725, Until Fri08/17/13 at 0116, Pain, Maximum dose of acetaminophen is 4000 mg from all sources in 24 hours., Routine Given 08/16/2013 10:45 PM EST 2 tablets Given 08/16/2013 7:00 PM EST 1 tablet Given 08/16/2013 6:37 PM EST 1 tablet documented in this encounter Active and Recently Administered Medications Times are shown in EST. Continuous Medication Order 08/14/2013 08/15/2013 08/16/2013 lactated ringers infusion 1,000 mL (CANCELED) 1,000 mL, at 100 mL/hr, Intravenous, CONTINUOUS, Starting on Fri08/16/13 at 1415, Until Fri08/16/13 at 2314, Day of Surgery (Day of Procedure) 1400 (New Bag - Prov ider: Margarita Bahnea RN)1519 (Anesthesia Volume Adjustment - Provider: Precious Juarez MD)1609 (New Bag - Provider: Precious Juarez MD) PRN Medication Order 08/14/2013 08/15/2013 08/16/2013 BUpivacaine-EPINEPHrine 0.25 %-1:200,000 injection (CANCELED) ONCE PRN, Starting on Fri08/16/13 at 1704, Until Fri08/16/13 at 2314, Intra-Operative (Intra-Procedure), Routine 1704 (Given - Provid er: Renzo Dykes MD) fentaNYL 50mcg/mL injection (CANCELED) 25-50 mcg, Intravenous, EVERY 5 MIN PRN, Starting on Fri08/16/13 at 1722, Until Fri08/16/13 at 2314, Pain, for breakthrough pain, Hold for respiratory rate less than 10 per minute. Maximum dose: 250 mcg over one hour., PACU Recovery, Routine 180 (Given - Provid er: Matt Ron RN)181 (Given - Provider: Matt Ron RN)181 (Given - Provider: Matt Ron RN)183 (Given - Provider: Matt Ron RN) oxyCODONE-acetaminophen (PERCOCET) 5-325 mg per tablet 1-2 tablet (CANCELED) 1-2 tablet, Oral, EVERY 4 HOURS PRN, Starting on 08/16/13 at 1725, Until Fri08/17/13 at 0116, Pain, Maximum dose of acetaminophen is 4000 mg from all sources in 24 hours., Routine 174 (Given - Provid er: Matt Ron RN)183 (Given - Provider: Matt Ron RN)190 (Given - Provider: Mtat Ron RN)2245 (Given - Provider: Matt Ron RN) documented in this encounter Care Teams [employer] Coordinator Relationship Specialty Start Date End Date Diana Weaver MD [address] [place] [address] PCP - General 05/22/10 09/11/17 documented as of this encounter
--- OUTSIDE RECORDS SUMMARY | 2024-03-12 00:11 | XMS_ITS | Encounter Summary ---
Author Organization [facility] Address [facility] [place] [address] Care Team Providers Care Senior Software Tester Name Role Phone Diana Weaver MD Primary Care Provider [phone] Reason for Visit * Reason Onset Date Comments Appointment 09/04/2016 Encounter Details Date Type Department Care Team (Late st Contact Info) Description 09/04/2016 [place] [id number] Oliver Carter MD [facility] [place] [address] Appointment Social History Tobacco Use Types Packs/Day Years [...] encounter Miscellaneous Notes * Telephone Encounter - Sharon Somers - 09/05/2016 9:10 AM EST SPOKE WITH PATIENT AND SCHEDULED * Telephone Encounter - Wanda Mckeon - 09/04/2016 10:55 AM EST LMOM #1 to call to schedule appointment for right shoulder injection as listed below-may schedule in [facility] or Dr Carter's clinic as patient wishes * Telephone Encounter - Libby Shaw RN - 09/04/2016 9:58 AM EST Patient's request for injection appointment of the Right shoulder has been reviewed by Clinical Support. Is it too soon for patient to have this injection? No Date of last injection? 04/16/16 - in clinic Is this a synvisc/orthovisc injection? no Enter [employer] Prior Auth if Synvisc or Orthovisc injection. Does this injection need to be scheduled in radiology under fluoro? no Have orders been placed? not applicable Injection within 3 months prior to joint arthroplasty or arthroscopy is associated with increased rates of postoperative infection: this includes, hip, knee, and shoulder. * Telephone Encounter - Evelyn Clemente RN - 09/04/2016 9:57 AM EST Patient's request for injection appointment of the Right shoulder has been reviewed by Clinical Support. Is it too soon for patient to have this injection? No Is this a synvisc/orthovisc injection? no Enter [employer] Prior Auth if Synvisc or Orthovisc injection. Does this injection need to be scheduled in radiology under fluoro? no Have orders been placed? no Injection within 3 months prior to joint arthroplasty or arthroscopy is associated with increased rates of postoperative infection: this includes, hip, knee, and shoulder. * Telephone Encounter - Sharon Somers - 09/04/2016 9:20 AM EST Best phone # to reach the patient for [phone] Patient requests appointment for injection of the [...] on filedocumented in this encounter Care Teams Senior Software Tester Relationship Specialty Start Date End Date Diana Weaver MD [address] [place] [address] PCP - General 05/22/10 09/11/17 documented as of this encounter
--- OUTSIDE RECORDS SUMMARY | 2024-03-12 00:11 | XMS_ITS | Encounter Summary ---
Author Organization Formerly [facility], Later [facility] Address [facility] [place] [address] Care Team Providers Care Supervisor Photostat Name Role Phone Diana Weaver MD Primary Care Provider [phone] Reason for Visit * Reason Comments Bilateral Shoulder Pain Encounter Details Date Type Department Care Team (Late st Contact Info) Description 03/30/2013 2:15 PM EDT Office [place] [address] Oliver Carter MD [facility] [place] [address] Rotator cuff disorder bilateral (L>R) (Primary Dx) Discharge Disposition: Home Social History Tobacco Use [...] Sign Reading Time Taken Comments Blood Pressure 142/84 03/30/2013 2:06 PM EDT Pulse 73 03/30/2013 2:06 PM EDT Temperature - - Respiratory Rate - - Oxygen Saturation - - Inhaled Oxygen Concentration - - Weight 90.5 kg (199 lb 9.6 oz) 03/30/2013 2:06 P M EDT Height 180.3 cm (5' 11) 03/30/2013 2:06 PM EDT Body Mass Index 27.84 03/30/2013 2:06 PM EDT documented in this encounter Progress Notes * Ambrose Negrete PA - 03/30/2013 2:10 PM EDT Date of Evaluation: 03/30/2013 Referring Provider: Diana Weaver Date of Injury: Chronic Staff: Dr. Carter History of Present Illness: Alvin Cat is a very pleasant 67 y.o. male with a chief complaint of bilateral left greater than right shoulder pain. Patient was last seen by Dr. Carter in 04/2013 for a similar issue. Patient states that he was given a diagnosis of bilateral impingement syndrome and given a referral to physical therapy. Patient saw a therapist once and was given a regimen of exercises to perform at home. Patient performed th exercises at home and experienced significant relief In bilateral shoulders. He states that he also got an exercise regimen off the Internet, which gave him significant relief. Patient states that he discontinued doing exercises at home for the past several months and has noticedthat he's had an insidious onset of bilateral shoulder pain. He locates the majority of his pain onthe superior lateral aspect of bilateral humerus. He states that he doesnt have difficulty with overhead activities, but the majority of his pain comes in the middle of the night. Patient states thaton average. The pain is normally 1/10 and 4/10 at its worst. He states that he takes extra Tylenol and ibuprofen daily with good relief. The patient states that he had an injection in his left shoulder when he was seen last by Dr. Carter, which gave him several days of relief. Past Medical History: No past medical history on file. Surgical History: Past Surgical History Procedure Date ??? Created by interface arthroscopic knee surgeries x3 Procedure Date: 2004 ??? Created by interface Entered not Verified Procedure Date: 04/24/2010 ??? Created by interface hernia repair Procedure Date: 1982 ??? 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 amitriptyline (ELAVIL) 25 mg tablet Active Take 25 mg by mouth nightly. ??? tadalafil (CIALIS) 5 mg tablet Active Take 5 mg by mouth daily. ??? clindamycin (CLEOCIN) 150 mg capsule Active Take 150 mg by mouth 2 times daily. Prior to dentalprocedures ??? loratadine (CLARITIN) 10 mg tablet Active Take 10 mg by mouth daily. ??? acetaminophen (TYLENOL) 500 mg tablet Active Take 1,000 mg by mouth 2 times daily. ??? ibuprofen (ADVIL;MOTRIN) 200 mg tablet Active Take 600 mg by mouth 2 times daily as needed. ??? ACYCLOVIR ORAL Active Take 2,000 mg by mouth 2 times daily as needed. ??? sildenafil (VIAGRA) 100 mg tablet Active Take 100 mg by mouth as needed. 25 mg - 50 mg prn Patient Active Problem List Diagnosis Code ??? Osteoarthritis 715.90 ??? CIS - asbestos exposure T999.0 ??? CIS - Bilateral knee osteoarthritis T999.0 ??? CIS - Bilateral knee pain T999.0 ??? BPH (benign prostatic hyperplasia) 600.90 ??? Erectile dysfunction 607.84 ??? CIS - rotator cuff tears T999.0 ??? Condyloma 078.11 ? ? Rotator cuff disorder bilateral (L>R) 726.10 ??? 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 Pericardial effusion 423.9 ??? Dilated cardiomyopathy 425.4 Review of Systems: Denies fever, chills, PAREDES, LOC, SOB, CP, NVD, abd pain, paresthesias, weakness inthe extremities, swelling in the joints, h/o RA. No recent hospitalizations Physical Examination Mr. Emory umana 67 y.o. year old is alert and oriented. He appears in no acute discomfort and is resting comfortably in a chair in the exam room. Neck: Section. The patient has reveals no gross deformities. Patient has no paraspinal or spinal tenderness. He has excellent range of motion with lateral bend, rotation, flexion, extension. Negative Spurling's. Shoulder: Inspection of bilateral shoulders reveal mild left deltoid atrophy compared to the contralateral right. The patient has no areas of focal tenderness. No evidence of trauma seen. Skin is without erythema or ecchymosis. Patient has excellent range of motion with active abduction to 180??, forward flexion to 180??, external rotation to 70??, internal rotation to the lower mid scapular region. Patient does have some weakness with resisted external and internal rotation. Equaling 4/5. All other planes are 5/5 strength. Patient has slightly positive Mcghee Karlo and Neer. Patient has a negative empty can. negative Saxis's and speed's. Neurological/Vascular: Sensation to light and deep touch intact along the supraclavicular, axillary, muscular cutaneous, antebrachial, ulnar, radial, and median nerves root distribution Radial pulses are 2+/4 in bilateral upper extremities Imaging: I independently review the patient's bilateral plain films of his shoulders, which show noacute deformities. No fractures seen. Glenohumeral joint. Integrity intact. Mild a.c. joint arthropathy bilaterally. Assessment: 67-year-old male with bilateral left greater than right rhoulder pain, possibly secondary to rotator cuff tendinosis with impingement signs. The patient was seen and the plan was formulated in conjunction with Dr. Carter. Plan: Mr. Cat and I discussed his radiologic findings and physical exam findings. I think it appropriate the patient should start his at-home exercise regimen again. He should also continue takehis Tylenol and ibuprofen as needed for pain. At this point there is no role for arthroscopy. Discussed the role of steroid injections, which he declined. We will see the patient back on an as-neededbasis. The patient understands to contact us if they have any other questions or concerns. LEANNE HEADLEY 03/30/2013 documented in this encounter Plan of Treatment Not on file documented as of this encounter Visit Diagnoses Diagnosis Rotator cuff disorder bilateral (L>R)- Primary Disorders of bursae and tendons in shoulder region, unspecified documented in this encounter Care Teams Supervisor Photostat Relationship Specialty Start Date End Date Diana Weaver MD [address] [place] [address] PCP - General 05/22/10 09/11/17 documented as of this encounter
--- OUTSIDE RECORDS SUMMARY | 2024-03-12 00:11 | XMS_ITS | Encounter Summary ---
[place] [address] Care Team Providers Care Heel Seat Fitter Name Role Phone Diana Weaver MD Primary Care Provider [phone] Reason for Visit * Reason Onset Date Comments Other 02/23/2016 requesting vipin parada office notes Encounter Details Date Type Department Care Team (Late st Contact Info) Description 02/23/2016 [place] [address] Washington Deluca MD [facility] [place] [address] Other (requesting recent office notes) Social History Tobacco Use Types Packs/Day Years Used Date Smoking Tobacco: Former Cigarettes Q uit: 03/13/1981 Smokeless Tobacco: Never Alcohol Use Standard Drinks/Week Comments Yes 14 (1 standard drink = 0.6 oz pu re alcohol) Sex and Gender Information Value Date Recorded Sex Assigned at Not on file Gender Identity Not on file Sexual Orientation Not on file documented as of this encounter Miscellaneous Notes * Telephone Encounter - Hattie Craig RN - 03/07/2016 3:42 PM EDT Office note faxed * Telephone Encounter - Madi Rivas - 02/23/2016 3:11 PM EDT Mackenzie called from [facility], requesting the office notes from patient's visit with . Unfortunately, the office notes encounter is not closed. Can Dr. Deluca please completethis note, so this can be faxed to them? Fax #: [phone] attn: Dr.Sharon Weaver documented in this encounter Plan of Treatment Not on file documented as of this encounter Visit Diagnoses Not on filedocumented in this encounter Care Teams Heel Seat Fitter Relationship Specialty Start Date End Date Diana Weaver MD [address] [place] [address] PCP - General 05/22/10 09/11/17 documented as of this encounter
--- OUTSIDE RECORDS SUMMARY | 2024-03-12 00:11 | XMS_ITS | Encounter Summary ---
Author Organization [facility] [place] [address] Care Team Providers Care Loss Prevention Lead Name Role Phone Diana Weaver MD Primary Care Provider [phone] Encounter Details Date Type Department Care Team (Late st Contact Info) Description 03/18/2013 Orders [place] [address] [facility] [place] [address] Pain (Primary Dx) Social History Tobacco Use Types Packs/Day Years [...] as of this encounter Visit Diagnoses Diagnosis Pain- Primary Generalized pain documented in this encounter Care Teams Loss Prevention Lead Relationship Specialty Start Date End Date Diana Weaver MD [address] [place] [address] PCP - General 05/22/10 09/11/17 documented as of this encounter
--- OUTSIDE RECORDS SUMMARY | 2024-03-12 00:11 | XMS_ITS | Encounter Summary ---
Author Organization [facility] Address [facility] [place] [address] Care Team Providers Care Daytime Babysitter Name Role Phone Diana Weaver MD Primary Care Provider [phone] Encounter Details Date Type Department Care Team (Latest Contact Info) Description 02/13/2016 9:00 AM EDT - 02/13/2016 11:59 PM EDT Hospital Encounter XRay at [address] [place] [address] Oliver Carter MD [facility] [place] [address] Bilateral shoulder pain, unspecified chronicity Discharge Disposition: Home Social History Tobacco Use [...] Sig Dispensed Refills Start Date End Date valACYclovir (VALTREX) 1 gram Tablet take 2 tablets by mouth prn 0 02/05/2016 sildenafil (VIAGRA) 100 mg tablet Take 100 mg by mouth as needed. 25 mg - 50 mg prn atorvastatin (LIPITOR) 20 mg Tablet take 1 tablet by mouth at bedtime 0 02/05/2016 10/22/2016 clopidogrel (PLAVIX) 75 mg Tablet take 1 tablet by mouth once daily 0 02/05/2016 03/11/2017 traMADol (ULTRAM) 50 mg Tablet Take 50 mg by mouth nightly. 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 Narrative 02/13/2016 9:41 AM EDT EXAMINATION: XR BILATERAL SHOULDERS MINIMUM 2 VIEWS CLINICAL HISTORY: BILATERAL SHOULDER PAIN TECHNIQUE: XR BILATERAL SHOULDERS MINIMUM 2 VIEWS COMPARISON: 03/30/2013. FINDINGS: Right shoulder: There is mild narrowing of the glenohumeral joint with marginal osteophytes consistent with degenerative joint disease. This has changed little radiographically since prior study. Degenerative changes are also present at the AC joint. No fracture, malalignment or aggressive osseous lesion is seen. No soft tissue calcification. Left shoulder: There is mild glenohumeral joint and moderate AC joint degenerative osteoarthropathy. No soft tissue calcification seen. Little radiographic change from prior study of 03/30/2013. Procedure Note Patel Mccormick MD - 02/13/2016 EXAMINATION: XR BILATERAL SHOULDERS MINIMUM 2 VIEWS CLINICAL HISTORY: BILATERAL SHOULDER PAIN TECHNIQUE: XR BILATERAL SHOULDERS MINIMUM 2 VIEWS COMPARISON: 03/30/2013. FINDINGS: Right shoulder: There is mild narrowing of the glenohumeral joint withmarginal osteophytes consistent with degenerative joint disease. This has changedlittle radiographically since prior study. Degenerative changes are also presentat the AC joint. No fracture, malalignment or aggressive osseous lesion is seen.No soft tissue calcification. Left shoulder: There is mild glenohumeral joint and moderate AC joint degenerative osteoarthropathy. No soft tissue calcification seen. Little radiographic change from prior study of 03/30/2013. 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 Oliver Carter MD IMG DX ORDERABLES documented in this encounter Visit Diagnoses Diagnosis Bilateral shoulder pain, unspecified chronicity documented in this encounter Care Teams Daytime Babysitter Relationship Specialty Start Date End Date Diana Weaver MD [address] [place] [id number] PCP - General 05/22/10 09/11/17 documented as of this encounter
--- OUTSIDE RECORDS SUMMARY | 2024-03-12 00:11 | XMS_ITS | Encounter Summary ---
Author Organization [facility] [place] [address] Care Team Providers Care Pricing Actuary Name Role Phone Diana Weaver MD Primary Care Provider [phone] Reason for Visit * Consultation (Routine) - Closed Specialty Diagnoses / Procedures Referred By Ronald parada Referred To Contact Physical Therapy Diagnoses Right shoulder pain Shayy Diallo APRN [address] [place] [address] Patel Arevalo, PT [facility] PHYSICAL MEDICINE [place] [address] Referral ID Status Reason Start Date Expiration Date V isits Requested Visits Authorized [id number] Closed Consult, Test & Treat Connection Center PCP Updated and/or Approved 11/02/2015 11/01/2016 1 1 Encounter Details Date Type Department Care Team (Late st Contact Info) Description 11/24/2015 9:30 AM EDT Office Visit Physical Therapy at [facility] [address] [place] [address] Marvin Wiseman, PT [facility] PHYSICAL MEDIC[facility] [place] [address] Acute pain of both shoulders Social History [...] as of this encounter Progress Notes * MarehamzahMarvin J, PT - 11/24/2015 9:41 AM EDT PHYSICAL THERAPY INITIAL EXAMINATION Date of Exam/First Treatment: 11/24/2015 Date of onset: 5 weeks Referring Provider: Shayy Diallo Primary: Payor: MEDICARE / Plan: MEDICARE PART A & B / Product Type: *No Product type* / Medicare Certification period: 11/24/2015 - 01/23/17 Medicare Therapy G-Code Date Tracking: (Update G-Code status every 10 visits or when code changes) 1 2 3 4 5 6 7 8 9 10 11/23 Diagnosis: 1. Acute pain of both shoulders CURRENT HISTORY Alvin Kita Cat is a 70 y.o. 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 He fell hard and hurt both shoulders. He reports he was seen in 2012 and had shoulder impingement and partial possible rotator cuff tears. He has a lot of materials on the shoulder and is looking for an indep home program as [place] hours away. He reports he had a TIA on October 07 - carotid dopler and ECG - he reports these were mostly ok and possible additional imaging for possible paten foramen ovale - and to monitor. No issues since then with this. 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 Partial rotator cuff tears Imaging: see chart review for specifics under Imaging tab. Pain: at best: 3/10; at worst: 8/10 within the last 2 weeks Located: bilateral shoulder and mid shaft humerus and to right above the elbow; Describes pain as: aching and throbbing denies numbness and tingling Home treatment has included: online exercises and bands Prior level of function: indep Functional Limitations / Exacerbating factors of pain: sleeping, right arm elevation, reaching forward CLINICAL FINDINGS: Associated symptoms: click in right with pendulum Posture: left ilium higher, small scoliosis with possible mild thoracic scoliosis, right head shifted, bilateral winging scapula R > L, right scapular depression Palpation: tenderness with palpation at: negative Upper Extremity Range of Motion (ROM) and Strength (MMT): Affected Side: bilateral AROM RIGHT AROM LEFT Shoulder flexion 0-138*, passive near full 0-145, passive near full abduction 0-135* significant winging, passive near full 0-150, passive near full ER 0-72*, passive near full 0-80*, ~ 80 deg IR L3* T12* R shoulder MMT: 4/5 for flexion and ER L shoulder MMT: 4+/5 for flexion -otherwise all other myotomes 5/5 * = Performed with Increased pain NT = Not Tested Scapula strength: LEFT RIGHT Middle trap: 4/5 4-/5 Rhomboids: 4+/5 4/5 Serratus: 4/5 4-/5 Scapulo-humeral rhythm: dyskinesia R > L Cervical ROM: 50% in rotation and flexion/ext Special Tests: TEST NAME OUTCOME LEFT/RIGHT PURPOSE Mcghee-Karlo Mild / moderate Impingement AC Shear Negative / negative AC sprain Empty / Full Can Positive / positive RTC Supraspinatus Sulcus Sign/load and shift Negative / negative Inf Instability / AC Obriens negative / positive Labrum / AC / Biceps Painful Arc Positive / positive RTC Yergasons Negative / negative THL Speeds Negative / negative Biceps Tendonitis / Labrum Lag sign / Drop sign Negative / Infraspinatus lift off Negative / negative (negative belly press as well) Subscapularis Joint mobility: GH joint: fair mobility, some tightness posteriorly; some tightness in posterior capsule with ~ 30-40 deg supine IR Flexibility: decreased at pectoralis Reflexes: n/t Functional Assessment Tool: LILIBETH/ASES Shoulder Score: ASES Score: ASES 11/24/2015 Pain in shoulder Both Pain medication Yes Narcotics No Pills per day 9 Pain in shoulder at night - Right Yes Pain in shoulder at night - Left Yes Pain today - Right 3 Pain today - Left 1 Unstable - Right No Unstable - Left No How unstable - Right 4 How unstable - Left 1 Put on a coat - right Somewhat difficult Put on a coat - left Not difficult Sleep - right Very difficult to do Sleep - left Somewhat difficult Wash back / do up bra - right Very difficult to do Wash back / do up bra - left Not difficult Manage toiletting - right Not difficult Manage toiletting - left Not difficult Comb hair - right Very difficult to do Comb hair - left Not difficult Reach high shelf - right Unable to do Reach high shelf - left Not difficult Lift 10 lbs above shoulder - right Unable to do Lift 10 lbs above shoulder - left Not difficult Throw ball overhand - right Unable to do Throw ball overhand - left Somewhat difficult Do usual work - right Somewhat difficult Do usual work - left Not difficult Do usual sport - right Unable to do Do usual sport - left Somewhat difficult ASES VAS-RIGHT 3 ASES VAS-LEFT 1 ASES ADL-RIGHT ARM 10 ASES ADL-LEFT ARM 27 ASES RIGHT ARM 51.66 ASES LEFT ARM 90 CLINICAL EVALUATION AND DIAGNOSIS: These findings are [...] of AROM in order maximize function Therapy 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 1. improve [...] shoulders documented in this encounter Care Teams Pricing Actuary Relationship Specialty Start Date End Date Diana Weaver MD [address] [place] [address] PCP - General 05/22/10 09/11/17 documented as of this encounter
--- OUTSIDE RECORDS SUMMARY | 2024-03-12 00:11 | XMS_ITS | Encounter Summary ---
[place] [address] Care Team Providers Care Agricultural Service Technician Name Role Phone Diana Weaver MD Primary Care Provider [phone] Reason for Referral * Diagnostic Test (Routine) - Specialty Diagnoses / Procedures Referred By Contac t Referred To Contact Cardiology Diagnoses Transient cerebral ischemia, unspecified type Procedures Echocardiogram Transthoracic(Leb) Wanda Delaney MD [address] [place] [address] [facility] [place] [address] Referral ID Status Reason Start Date Expiration Date Visits Requested Visits Authorized [id number] Specialty Service Requested 11/01/2015 10/31/2016 1 1 Reason for Visit * Diagnostic Test (Routine) - Closed Specialty Diagnoses / Procedures Referred By Contac t Referred To Contact Cardiology Diagnoses ECHOCARDIOGRAM for TIA Wanda Delaney MD [address] [place] [address] [facility] [address] [place] [id number] Referral ID Status Reason Start Date Expiration Date V isits Requested Visits Authorized [id number] Closed Connection Center PCP Updated and/or Approved 10/31/2015 10/30/2016 1 1 Encounter Details Date Type Department Care Team (Latest Contact Info) Description 11/16/2015 2:50 PM EDT - 11/16/2015 11:59 PM EDT Hospital Encounter Non-Invasive Cardiology Lab [facility] [place] [address] Transient cerebral ischemia, unspecified type Discharge Disposition: Home Social History Tobacco Use [...] Procedure Name Priority Date/Time Associated Diagnosis Comments ECHO COMPLETE Routine 11/16/2015 4:06 PM EDT Transient cerebral ischemia, unspecified type documented in this encounter Results * ECHO COMPLETE (11/16/2015 4:06 PM EDT) EF 65 [employer] SYSTEM Anatomical Region Laterality Modality Other 11/17/2015 Narrative 11/17/2015 11:05 AM EDT Procedure: ?Transthoracic Echocardiogram Patient: ?PODHURST ALVIN L ? (Age): 1945(70y) Med Rec#: ? [id number] ?Sex: ?M ? Site Loc: ? [facility] ?Ht / Wt: ??180.3(cm)/84(kg Pt. Loc: ?Echo Lab ?BSA: ?2.04 Study Date: ?? 11/16/2015 ?Pt. Type: Outpatient Tape: ? Referring: Wanda Delaney MD Reading: Devang Burns ([id number]) Clinical Nursing Professor: Monse Trent Diagnosis: *ICD-10-PCS Transient cerebral ischemic attack, unspecified (G45.9) CPT Codes: *Echo Full (51417) *Spectral Doppler (65487) *Color Doppler (64491) BP: ? 157/80 SUMMARY: 1. No cardiac source of embolus noted. ??There is a possible patent foramen ovale demonstrated by color Doppler. Suggest additional imaging with agitated saline and/or a ALEC if clinically indicated. 2. The left ventricular chamber size is normal. Mild concentric left ventricular hypertrophy is observed. There are no left ventricular segmental wall motion abnormalities. There is normal global left ventricular systolic function. ??Ejection fraction is estimated to be 65%. 3. Right ventricular chamber size, wall thickness, and systolic function are within normal limits. 4. There is no hemodynamically significant valve disease. 5. The estimated pulmonary artery systolic pressure is 23 mmHg. 6. The pericardium appears normal and there is no evidence of a pericardial effusion. 7. See remainder of report for additional findings. Findings ? : Left Ventricle: ? The left ventricular chamber size is normal. ?Mild concentric left ventricular hypertrophy is observed. ?There is normal global left ventricular systolic function. ??Ejection fraction is estimated to be 65%. ?There are no left ventricular segmental wall motion abnormalities. Left Atrium: ? The left atrium is mildly dilated.(36 ml/m2) ?There is a possible patent foramen ovale demonstrated by color Doppler. Right Ventricle: ? Right ventricular chamber size, wall thickness, and systolic function are within normal limits. ?The estimated pulmonary artery systolic pressure is 23 mmHg. ?The estimated right atrial pressure is 3 mmHg. Right Atrium: ? The right atrium is mildly dilated. Aortic Valve: ? The aortic valve is tricuspid. ?The aortic valve leaflets are mildly thickened. ?Systolic excursion of the aortic valve is normal. ?There is no evidence of aortic valve stenosis. ?There is no evidence of aortic regurgitation. Mitral Valve: ? The mitral valve leaflets are mildly thickened. ?There is no evidence of mitral stenosis. ?There is mild (1+/4+) mitral regurgitation present. Tricuspid Valve: ? The tricuspid valve leaflets are morphologically normal. ?There is trace tricuspid regurgitation present. Pulmonic Valve: ? The pulmonic valve appears normal. ?There is mild (1+/4+) pulmonic regurgitation present. Pericardium: ? The pericardium appears normal and there is no evidence of a pericardial effusion. Aorta: ? The aortic root is normal in size. ?The ascending aorta is normal in size. Pulmonary Artery: ? The main pulmonary artery appears normal. Venous: ? The inferior vena cava appears normal in size. ?There is a greater than 50% respiratory change in the inferior vena cava dimension. Misc: ? Two-dimensional echo, spectral Doppler and color Doppler performed. Chambers 2D ?Value ?Units (Range) ? IVSd (2D) ? 1.3 ?cm ? LVPWd (2D) ?1.3 ?cm ? IVS:LVPW ratio (2D) 1 ?ratio ? LVIDd (2D) ?4.8 ?cm ? LVIDs (2D) ?3.1 ?cm ? LVIDd (2D) index ?2.4 ?cm/m2 ? LVIDs (2D) index ?1.5 ?cm/m2 ? LV FS (2D) ?36 ? % ? EF Teichholz (2D) ?? 66 ? % ? Ao root diameter (2D3.2 ?cm (2.1 - 3.6) ? Ascending Ao ?3.5 ?cm (2 - 3.5) ? Volumes/Mass ?Value ?Units (Range) ? LA Area 4 CH ?21 ? cm2 (<21) ? LA ESV BP (A/L) inde35.7 ? ml/m2 ? RA AREA 4CH ? 22 ? cm2 ? LA ESV SP 4CH (MOD) 56.7 ? ml ? LA ESV SP 2CH (MOD) 78.5 ? ml ? LV ESV SP 4CH (MOD) 37.8 ? ml ? LV mass (2D) ?258.1 ?g ? LV mass (2D) index ??126.5 ?g/m2 ? Diastolic/Systolic Function ?Value ?Units (Range) ? MV E-wave Vmax ?0.6 ?m/sec ? MV deceleration deka446.2 ?msec ? MV A-wave Vmax ?0.6 ?m/sec ? MV E:A ratio ?1 ?ratio ? LV septal e' Vmax ?? 0.1 ?m/sec ? LV E:e' septal ratio7.6 ?ratio ? Tricuspid Valve ?Value ?Units (Range) ? TR Vmax ? 2.2 ?m/sec ? TR peak gradient ?20.1 ? mmHg ? RAP ? 3 ?mmHg ? RVSP ?23 ? mmHg ? Pulmonic Valve/Qp:Qs ?Value ?Units (Range) ? OK end-diastolic Vma0.6 ?m/sec ? PA end-diastolic pre4.6 ?mmHg ? Measurement Trending Name ? 11/16/2015 ? LVIDd (2D) ? 4.82 LVIDs (2D) ? 3.07 Wall Motion: Segment Name ?Rest ? Base-Anteroseptal ?? Normal ? Base-Anterior ? Normal ? Base-Anterolateral ??Normal ? Base-Posterolateral Normal ? Base-Inferior ? Normal ? Base-Inferoseptal ?? Normal ? Mid-Anteroseptal ?Normal ? Mid-Anterior ?Normal ? Mid-Anterolateral ?? Normal ? Mid-Posterolateral ??Normal ? Mid-Inferior ?Normal ? Mid-Inferoseptal ?Normal ? Forney-Septal ? Normal ? Forney-Anterior ? Normal ? Forney-Lateral ?Normal ? Forney-Inferior ? Normal ? Forney-Tip ?Normal ? This report has been electronically signed by: Devang Burns MD ? 11/17/2015 09:12:15 Images reviewed and interpretation verified [facility] Procedure Note Devang Burns MD - 11/17/2015 Procedure: Transthoracic Echocardiogram Patient: LORIN East DOB(Age): 1945(70y) Med Rec#: [id number] Sex: M Site Loc: [facility] Ht / Wt: 180.3(cm)/84(kg Pt. Loc: Echo Lab BSA: 2.04 Study Date: 11/16/2015 Pt. Type: Outpatient Tape: Referring: Wanda Delaney MD Reading: Devang Burns ([id number]) Clinical Nursing Professor: Monse Trent Diagnosis: *ICD-10-PCS Transient cerebral ischemic attack, unspecified (G45.9) CPT Codes: *Echo Full (24052) *Spectral Doppler (20880) *Color Doppler (51789) BP: 157/80 SUMMARY: 1. No cardiac source of embolus noted. There is a possible patent foramen ovale demonstrated by color Doppler. Suggest additional imaging with agitated saline and/or a ALEC if clinically indicated. 2. The left ventricular chamber size is normal. Mild concentric left ventricular hypertrophy is observed. There are no left ventricular segmental wall motion abnormalities. There is normal global left ventricular systolic function. Ejection fraction is estimated to be 65%. 3. Right ventricular chamber size, wall thickness, and systolic function are within normal limits. 4. There is no hemodynamically significant valve disease. 5. The estimated pulmonary artery systolic pressure is 23 mmHg. 6. The pericardium appears normal and there is no evidence of a pericardial effusion. 7. See remainder of report for additional findings. Findings : Left Ventricle: The left ventricular chamber size is normal. Mild concentric left ventricular hypertrophy is observed. There is normal global left ventricular systolic function. Ejection fraction is estimated to be 65%. There are no left ventricular segmental wall motion abnormalities. Left Atrium: The left atrium is mildly dilated.(36 ml/m2) There is a possible patent foramen ovale demonstrated by color Doppler. Right Ventricle: Right ventricular chamber size, wall thickness, and systolic function are within normal limits. The estimated pulmonary artery systolic pressure is 23 mmHg. The estimated right atrial pressure is 3 mmHg. Right Atrium: The right atrium is mildly dilated. Aortic Valve: The aortic valve is tricuspid. The aortic valve leaflets are mildly thickened. Systolic excursion of the aortic valve is normal. There is no evidence of aortic valve stenosis. There is no evidence of aortic regurgitation. Mitral Valve: The mitral valve leaflets are mildly thickened. There is no evidence of mitral stenosis. There is mild (1+/4+) mitral regurgitation present. Tricuspid Valve: The tricuspid valve leaflets are morphologically normal. There is trace tricuspid regurgitation present. Pulmonic Valve: The pulmonic valve appears normal. There is mild (1+/4+) pulmonic regurgitation present. Pericardium: The pericardium appears normal and there is no evidence of a pericardial effusion. Aorta: The aortic root is normal in size. The ascending aorta is normal in size. Pulmonary Artery: The main pulmonary artery appears normal. Venous: The inferior vena cava appears normal in size. There is a greater than 50% respiratory change in the inferior vena cava dimension. Misc: Two-dimensional echo, spectral Doppler and color Doppler performed. Chambers 2D Value Units (Range) IVSd (2D) 1.3 cm LVPWd (2D) 1.3 cm IVS:LVPW ratio (2D) 1 ratio LVIDd (2D) 4.8 cm LVIDs (2D) 3.1 cm LVIDd (2D) index 2.4 cm/m2 LVIDs (2D) index 1.5 cm/m2 LV FS (2D) 36 % EF Teichholz (2D) 66 % Ao root diameter (2D3.2 cm (2.1 - 3.6) Ascending Ao 3.5 cm (2 - 3.5) Volumes/Mass Value Units (Range) LA Area 4 CH 21 cm2 (<21) LA ESV BP (A/L) inde35.7 ml/m2 RA AREA 4CH 22 cm2 LA ESV SP 4CH (MOD) 56.7 ml LA ESV SP 2CH (MOD) 78.5 ml LV ESV SP 4CH (MOD) 37.8 ml LV mass (2D) 258.1 g LV mass (2D) index 126.5 g/m2 Diastolic/Systolic Function Value Units (Range) MV E-wave Vmax 0.6 m/sec MV deceleration bvff628.2 msec MV A-wave Vmax 0.6 m/sec MV E:A ratio 1 ratio LV septal e' Vmax 0.1 m/sec LV E:e' septal ratio7.6 ratio Tricuspid Valve Value Units (Range) TR Vmax 2.2 m/sec TR peak gradient 20.1 mmHg RAP 3 mmHg RVSP 23 mmHg Pulmonic Valve/Qp:Qs Value Units (Range) OK end-diastolic Vma0.6 m/sec PA end-diastolic pre4.6 mmHg Measurement Trending Name 11/16/2015 LVIDd (2D) 4.82 LVIDs (2D) 3.07 Wall Motion: Segment Name Rest Base-Anteroseptal Normal Base-Anterior Normal Base-Anterolateral Normal Base-Posterolateral Normal Base-Inferior Normal Base-Inferoseptal Normal Mid-Anteroseptal Normal Mid-Anterior Normal Mid-Anterolateral Normal Mid-Posterolateral Normal Mid-Inferior Normal Mid-Inferoseptal Normal Forney-Septal Normal Forney-Anterior Normal Forney-Lateral Normal Forney-Inferior Normal Forney-Tip Normal This report has been electronically signed by: Devang Burns MD 11/17/2015 09:12:15 Images reviewed and interpretation verified [facility] Wanda Delaney MD ECHO ORDERABLES documented in this encounter Visit Diagnoses Diagnosis Transient cerebral ischemia, unspecified type documented in this encounter Care Teams Agricultural Service Technician Relationship Specialty Start Date End Date Diana Weaver MD [address] [place] [address] PCP - General 05/22/10 09/11/17 documented as of this encounter
--- OUTSIDE RECORDS SUMMARY | 2024-03-12 00:11 | XMS_ITS | Encounter Summary ---
Author Organization [facility] Address [facility] [place] [address] Care Team Providers Care Magazine Filler Name Role Phone Diana Weaver MD Primary Care Provider [phone] Reason for Visit * Reason Comments Bilateral Hand Pain Encounter Details Date Type Department Care Team (Late st Contact Info) Description 02/23/2014 12:15 PM EDT Office [place] [address] Florentino Gregorio MD [facility] [address] [facility] [address] Osteoarthritis; Dupuytren's disease Discharge Disposition: Home Social History Tobacco Use [...] Sign Reading Time Taken Comments Blood Pressure 120/73 02/23/2014 12:47 PM EDT Pulse 76 02/23/2014 12:47 PM EDT Temperature - - Respiratory Rate - - Oxygen Saturation - - Inhaled Oxygen Concentration - - Weight 83.9 kg (185 lb) 02/23/2014 12:47 PM EDT Height 180.3 cm (5' 11) 02/23/2014 12:47 PM EDT Body Mass Index 25.8 02/23/2014 12:47 PM EDT documented in this encounter Progress Notes * Florentino Gregorio MD - 02/23/2014 1:22 PM EDT Alvin Cat is a 68-year-old right-hand dominant male who is seeing me for bilateral hand pain.He has had pain for several years, but notes that he has had some increase in his IP joint pain more recently. He also has many year history of Dupuytren's disease, which has not progressed. He has treated his IP joint pain with Tylenol No. 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 He has been able to manage fairly well. He also cuts many acres of grass with a walk behind mower and attempts to remain active. He is here to discuss these issues and to see what canbe offered to him. He has not had any formal evaluation from a medical standpoint for his arthritis. He also has had bilateral knee arthritis and has had bilateral total knee replacements done by . He also has seen Dr. Oliver Carter for bilateral rotator cuff tears. He has had low back pain since he was in his 20s. He notes that when putting weight on his hand joints he does have exacerbation of some of his pain. PAST MEDICAL HISTORY: Includes history of pericardial effusion and cardiomyopathy, benign prostatichyperplasia, and history of asbestos exposure. PHYSICAL EXAMINATION: Examination reveals a pleasant, alert male in no apparent distress. He has Heberden's and Hari's nodes in multiple digits in both of his hands. He has no evidence of triggering of his ring finger, but did recently experience a popping sensation. He was able to reproduce this once during this visit and it appeared to be coming from the PIP joint itself and not from the flexor sheath. He has swollen PIP joints in particular and small finger of his right hand is quite stiff at both the PIP and DIP joints. He reports that at one point it was the most painful digit, but this has settled down and become much more manageable for him. He does have Dupuytren's disease in bilateral hands with the first web space cord on the right, which slightly restricts abduction of his thumb. He also has pretendinous cords involving chiefly the long and ring fingers of both hands worse on the right than the left. There maybe a very subtle early cord formation in the first web space of the left hand also. His hands are sensate and well perfused. I reviewed x-rays with the patient, which show multiple PIP and DIP joint arthritis involving all the fingers of both hands. He also has some joint space narrowing and arthritic changes at the MCP joints of several digits and IP joint arthritis of his thumbs. DIAGNOSES: 1. Osteoarthritis bilateral hands. 2. Dupuytren's disease with regard to his osteoarthritis. We have discussed warm and cold treatment, topical ointments and even some traditional home remedies such as apple cider and grimes juice or grimes extract to address his arthritis symptoms. Topical ointments applied to the joints may also be beneficial. I talked to him about surgical options for management of this arthritis pain including IP joint fusion or PIP joint implant arthroplasty, but because of his heavy work as tea tree farm worker I would not recommend joint implant for him. Currently, he will attempt to manage his symptoms on his own and will contact me if they become more severe than he wishes to tolerate. With respect to his Dupuytren's disease, I have talked to him about treatment for Dupuytren's disease briefly, but he currently does not meet threshold for intervention. This has not changed appreciably in the recent years and is not causing his current finger pain and he was informed of this. He will see me for these issues as needed in the future on a p.r.n. basis. documented in this encounter Plan of Treatment Not on file documented as of this encounter Visit Diagnoses Diagnosis Osteoarthritis Osteoarthrosis, unspecified whether generalized or localized, unspecified site Dupuytren's disease Contracture of palmar fascia documented in this encounter Care Teams Magazine Filler Relationship Specialty Start Date End Date Diana Weaver MD [address] [place] [address] PCP - General 05/22/10 09/11/17 documented as of this encounter
--- OUTSIDE RECORDS SUMMARY | 2024-03-12 00:11 | XMS_ITS | Encounter Summary ---
Author Organization [facility] Address [facility] [place] [address] Care Team Providers Care Spray Pilot Name Role Phone Diana Weaver MD Primary Care Provider [phone] Encounter Details Date Type Department Care Team (Late st Contact Info) Description 03/30/2013 1:16 PM EDT - 03/30/2013 11:59 PM EDT Hospital Encounter XRay at [address] [place] [address] Pain Social History Tobacco Use Types Packs/Day Years [...] needed. 25 mg - 50 mg prn GLUCOSAM SUL NA/CHONDR NORTH A NA (GLUCOSAMINE & CHONDROIT SUL.NA ORAL) Take by mouth. multivitamin (THERAGRAN) tablet Take 1 tablet by mouth daily. 02/23/2014 SAW PALMETTO XTR/ZINC PICOLIN (SAW PALMETTO EXTRACT ORAL) Take by mouth. 08/16/2013 amitriptyline (ELAVIL) 25 mg tablet Take 25 mg by mouth nightly. 02/23/2014 clindamycin (CLEOCIN) 150 mg capsule Take 150 mg by mouth 2 times daily. Prior to dental procedures 06/02/2017 loratadine (CLARITIN) 10 mg tablet Take 10 mg by mouth daily. 04/22/2013 acetaminophen (TYLENOL) 500 mg tablet Take 1,000 mg by mouth 2 times daily. 01/10/2011 06/18/2017 ibuprofen (ADVIL;MOTRIN) 200 mg tablet Take 600 mg by mouth 2 times daily as needed. 01/10/2011 5 documented as of this encounter Plan of Treatment Not on file documented as of this encounter Procedures Procedure Name Priority Date/Time Associated Diagnosis Comments XR SHOULDERS MIN 2 VIEWS BILAT Routine 03/30/2013 1:46 PM EDT documented in this encounter Results * XR Bilateral Shoulders Minimum 2 views (03/30/2013 1:46 PM EDT) Anatomical Region Laterality Modality Shoulder Bilateral Radiographic Marsha ging 03/30/2013 1:46 PM EDT Narrative 03/30/2013 4:22 PM EDT Examination BILATERAL SHOULDERS MIN 2 VIEWS/BILAT Clinical History LEFT ROTATOR CUFF PAIN TN Comparison April 2011. Technique Findings Left: Unchanged left AC and glenoid humeral joint osteoarthropathy with osteophyte formation. ??No periarticular calcifications. ??The glenoid humeral joint space is relatively maintained. Right: ??[id number] right AC joint arthropathy. ??The right acromion has a lateral downward slope. ??Similar to the left, there are small right humeral head osteophytes but no periarticular calcifications. ??The right acromial humeral distance is slightly narrowed, thus raising the possibility of rotator cuff injury. ??The visualized lungs are clear. Impression Unchanged bilateral AC joint and glenoid humeral joint osteoarthropathy. Procedure Note Emperatriz Almanza MD - 03/30/2013 Examination BILATERAL SHOULDERS MIN 2 VIEWS/BILAT Clinical History LEFT ROTATOR CUFF PAIN TN Comparison April 2011. Technique Findings Left: Unchanged left AC and glenoid humeral joint osteoarthropathy with osteophyte formation. No periarticular calcifications. The glenoidhumeral joint space is relatively maintained. Right: [id number] right AC joint arthropathy. The right acromionhas a lateral downward slope. Similar to the left, there are small righthumeral head osteophytes but no periarticular calcifications. The right acromial humeral distance is slightly narrowed, thus raising the possibility ofrotator cuff injury. The visualized lungs are clear. Impression Unchanged bilateral AC joint and glenoid humeral joint osteoarthropathy. Oliver Carter MD IMG DX ORDERABLES documented in this encounter Visit Diagnoses Diagnosis Pain Generalized pain documented in this encounter Care Teams Spray Pilot Relationship Specialty Start Date End Date Diana Weaver MD [address] [place] [address] PCP - General 05/22/10 09/11/17 documented as of this encounter
--- OUTSIDE RECORDS SUMMARY | 2024-03-12 00:11 | XMS_ITS | Encounter Summary ---
Author Organization [facility] [place] [address] Care Team Providers Care Production Support Analyst Name Role Phone Diana Weaver MD Primary Care Provider [phone] Reason for Referral * Diagnostic Test (Routine) - Closed Specialty Diagnoses / Procedures Referred By Ronald parada Referred To Contact Radiology Diagnoses Disorder of rotator cuff, unspecified laterality Procedures MRI Shoulder Right WO Contrast (GENERIC) Oliver Carter MD [facility] [place] [address] Referral ID Status Reason Start Date Expiration Date V isits Requested Visits Authorized [id number] Closed Specialty Service Requested 02/13/2016 02/12/2017 1 1 Reason for Visit * Reason Comments Bilateral Shoulder Pain R>L * Consultation (Routine) - Closed Specialty Diagnoses / Procedures Referred By Ronald parada Referred To Contact Orthopaedics Diagnoses Bilateral shoulder pain w/significant loss of motion in right Diana Weaver MD [address] [facility] [place] [address] Referral ID Status Reason Start Date Expiration Date V isits Requested Visits Authorized [id number] Closed Consult, Test & Treat Connection Center 12/28/2015 12/27/2016 1 1 Encounter Details Date Type Department Care Team (Late st Contact Info) Description 02/13/2016 10:00 AM EDT Office [place] [address] [facility] [address] [place] [address] Disorder of rotator cuff, unspecified laterality Social History Tobacco Use Types [...] Sign Reading Time Taken Comments Blood Pressure 133/73 02/13/2016 9:59 AM EDT Pulse 73 02/13/2016 9:59 AM EDT Temperature - - Respiratory Rate - - Oxygen Saturation - - Inhaled Oxygen Concentration - - Weight 86.2 kg (190 lb) 02/13/2016 9:59 AM EDT Height 177.8 cm (5' 10) 02/13/2016 9:59 AM EDT Body Mass Index 27.26 02/13/2016 9:59 AM EDT documented in this encounter Progress Notes * Oliver Carter MD - 02/13/2016 10:00 AM EDT Mr. Cat is a 70-year-old gentleman whom I have seen several times in the remote past for shoulder complaints including one visit in 2010 and a second visit in 2012. At that time, he was diagnosed with rotator cuff tendinosis/impingement and treated successfully with physical therapy measures. He at no time has received any injections in the shoulder. He comes in today, however, stating that on October 20 of this year, approximately 4 months ago, he injured both shoulders when he was pulling a tree out of the ground. He referred himself to physical therapy, which he has been doing off and on for the past 4 months as well as some acupuncture treatments. He has made some improvements, but he continues to have pain and especially some weakness and discomfort through the midarc of abduction and forward flexion on the right side. He remains active, swimming 4-5 times per week, but continues to have significant night pain. He is here for a reevaluation of the right shoulder. Physical exam demonstrates the right shoulder to have abduction to approximately 170 degrees and 170 degrees of forward flexion, but he has pain to the midarc of abduction as well as forward flexion. Provocative signs for impingement were markedly positive including Mcghee, Karlo, and Neer impingement signs. He does have 4+/5 strength to resisted external rotation and 4+/5 strength to resisted abduction with pain on an empty can maneuver. Provocative signs for biceps tendinitis are also mildly positive. X-rays taken today of both shoulders do show some mild glenohumeral arthrosis with some minimal spurring of the inferior humerus and glenoid bilaterally, but otherwise no significant joint space narrowing. There is some excrescences and sclerosis in the area of the greater tuberosity and lateral margin of the acromion consistent with impingement. ASSESSMENT: Right rotator cuff injury. At this point, I cannot determine whether or not he has just continued to demonstrate worsening of his partial thickness rotator cuff tear versus completing a tear of the rotator cuff based on his exam. I would like to obtain an MRI. If he does not have a full thickness tear, then I think we can proceed with more aggressive nonoperative treatments including subacromial injection. If, however, he does have a significant full thickness tear then we may need to consider surgical fixation. I will be seeing him back once the MRI is complete. documented in this encounter Plan of Treatment Not on file documented as of this encounter Results * MRI Shoulder Right WO Contrast (GENERIC) (03/01/2016 10:28 AM EDT) Anatomical Region Laterality Modality Shoulder Right Magnetic Resonan ce Impressions 03/01/2016 10:54 AM EDT 1. ??Full-thickness tear involving the entirety of the supraspinatus and infraspinatus tendons, with tendon fibers being retracted as far medially as the level of the superior glenoid. Edema in the supraspinatus muscle and, to a lesser extent, the infraspinatus muscle. No muscle atrophy. 2. ??Tendinosis of the subscapularis. 3. ??Marked tendinosis of the intra-articular long head of the biceps tendon. 4. ??Moderate to severe degenerative changes of the AC joint. Narrative 03/01/2016 10:54 AM EDT EXAMINATION: MRI SHOULDER RIGHT WO CONTRAST CLINICAL HISTORY: Acute worsening of shoulder pain and weakness after injury, R/O RC tear TECHNIQUE: MRI of the right shoulder was performed without intravenous contrast. COMPARISON: Attention is also directed to right shoulder radiographs dated 05/16/2011, 03/30/2013, and 02/13/2016 FINDINGS: Glenohumeral joint: There is mild superior subluxation of the humeral head secondary to the presence of a full-thickness superior rotator cuff tear. There is a glenohumeral joint effusion containing septations. There is no fracture or bone marrow edema. There is no focal cartilage defect. Acromioclavicular joint: The acromion has a curved configuration. There is moderate to severe degenerative hypertrophy of the acromioclavicular joint.. Rotator cuff and bursae: There is a full-thickness tear involving the entirety of the supraspinatus and infraspinatus tendons. There is differential retraction of torn tendon fibers, with some fibers being retracted as far medially as the level of the superior glenoid. There is subscapularis tendinosis. The teres minor tendon is intact. There is fluid tracking along the infraspinatus musculotendinous junction. There is marked edema in the supraspinatus muscle and mild edema in the infraspinatus muscle. There is no muscle atrophy. Secondary to the presence of a full-thickness superior rotator cuff tear, there is moderate subacromial/subdeltoid bursal fluid extending superiorly into the acromioclavicular joint. Biceps tendon and glenoid labrum: There is marked tendinosis of the intra-articular long head of the biceps tendon. There are degenerative changes of the labrum, most pronounced in the posterior superior labrum. Procedure Note Shavon Dey MD - 03/01/2016 EXAMINATION: MRI SHOULDER RIGHT WO CONTRAST CLINICAL HISTORY: Acute worsening of shoulder pain and weakness afterinjury, R/O RC tear TECHNIQUE: MRI of the right shoulder was performed without intravenouscontrast. COMPARISON: Attention is also directed to right shoulder radiographsdated 05/16/2011, 03/30/2013, and 02/13/2016 FINDINGS: Glenohumeral joint: There is mild superior subluxation of the humeralhead secondary to the presence of a full-thickness superior rotator cuff tear.There is a glenohumeral joint effusion containing septations. There is nofracture or bone marrow edema. There is no focal cartilage defect. Acromioclavicular joint: The acromion has a curved configuration. Thereis moderate to severe degenerative hypertrophy of the acromioclavicularjoint.. Rotator cuff and bursae: There is a full-thickness tear involving theentirety of the supraspinatus and infraspinatus tendons. There is differentialretraction of torn tendon fibers, with some fibers being retracted as far medially asthe level of the superior glenoid. There is subscapularis tendinosis. Theteres minor tendon is intact. There is fluid tracking along the infraspinatus musculotendinous junction. There is marked edema in the supraspinatusmuscle and mild edema in the infraspinatus muscle. There is no muscle atrophy.Secondary to the presence of a full-thickness superior rotator cuff tear, there ismoderate subacromial/subdeltoid bursal fluid extending superiorly into the acromioclavicular joint. Biceps tendon and glenoid labrum: There is marked tendinosis of the intra-articular long head of the biceps tendon. There are degenerativechanges of the labrum, most pronounced in the posterior superior labrum. IMPRESSION 1. Full-thickness tear involving the entirety of the supraspinatus and infraspinatus tendons, with tendon fibers being retracted as far mediallyas the level of the superior glenoid. Edema in the supraspinatus muscle and, toa lesser extent, the infraspinatus muscle. No muscle atrophy. 2. Tendinosis of the subscapularis. 3. Marked tendinosis of the intra-articular long head of the bicepstendon. 4. Moderate to severe degenerative changes of the AC joint. Oliver Carter MD [facility] [place] [facility] ORDERABLES documented in this encounter Visit Diagnoses Diagnosis Disorder of rotator cuff, unspecified laterality Disorder of rotator cuff, unspecified laterality documented in this encounter Care Teams Production Support Analyst Relationship Specialty Start Date End Date Diana Weaver MD [address] [place] [address] PCP - General 05/22/10 09/11/17 documented as of this encounter
--- OUTSIDE RECORDS SUMMARY | 2024-03-12 00:11 | XMS_ITS | Encounter Summary ---
Author Organization [facility] Address [facility] [place] [address] Care Team Providers Care Technology Resource Teacher Name Role Phone Diana Weaver MD Primary Care Provider [phone] Encounter Details Date Type Department Care Team (Late st Contact Info) Description 01/11/2016 9:15 AM EDT Office Visit Physical Therapy at [facility] [address] [place] [address] Marvin Wiseman, PT [facility] PHYSICAL MEDICINE & [place] [address] Acute pain of both shoulders Social History [...] Progress Notes * Marvin Wiseman, PT - 01/11/2016 9:15 AM EDT PHYSICAL THERAPY PROGRESS NOTE Date of Exam/First Treatment: 01/11/2016 Date of onset: 5 weeks Referring Provider: Diana Weaver Total Treatment time: 50 minutes Total Timed Code Treatment: 40 minutes Primary: Payor: MEDICARE / Plan: MEDICARE PART A & B / Product Type: *No Product type* / Medicare Certification period: 01/11/2016 - 01/23/17 Medicare Therapy G-Code Date Tracking: (Update G-Code status every 10 visits or when code changes) 1 2 3 4 5 6 7 8 9 10 11/23 12/10 12/18 12/25 01/03 01/10 Diagnosis: 1. Acute pain of both shoulders S: Patient reports improving motion. He reports he is not making much progress. Had another TIA. Hereports the pain is mid humeral. O: Therex 2 unit, Manual 1 units: Upper Extremity Range of Motion (ROM) and Strength (MMT): Affected Side: bilateral ?? AROM RIGHT AROM LEFT Shoulder flexion 0-138*, passive near full 0-145, passive near full abduction 0-135* significant winging, passive near full 0-150, passive near full ER 0-72*, passive near full 0-80*, ~ 80 deg IR L3* T12* ?? Sleeper stretch ?? PROM and joint mobilizations, gr 3 posterior/traction/inferior ?? Answered many questions on anatomy, pathophysiology, natural history and treatment options, activity limitations and modifications A: Greatly improved IR, but flexion still limited due to impingement. P: Continue per PT POC and goals. 45 min total 10 min manual 35 therex 10 min ice after XXXXXXXXXXX FROM EVALUATION [id number] CLINICAL EVALUATION AND [...] of AROM in order maximize function Therapy Title Clerk Automobile Goals (8 weeks) Patient to... 1. improve [...] shoulders documented in this encounter Care Teams Technology Resource Teacher Relationship Specialty Start Date End Date Diana Weaver MD [address] [place] [address] PCP - General 05/22/10 09/11/17 documented as of this encounter
--- OUTSIDE RECORDS SUMMARY | 2024-03-12 00:11 | XMS_ITS | Encounter Summary ---
Author Organization [facility] Address [facility] [place] [address] Care Team Providers Care Extrusion Die Coordinator Name Role Phone Diana Weaver MD Primary Care Provider [phone] Reason for Visit * Reason Onset Date Comments Injections 05/10/2016 Encounter Details Date Type Department Care Team (Late st Contact Info) Description 05/10/2016 [place] [id number] Oliver Carter MD [facility] [place] [address] Injections Social History Tobacco Use Types Packs/Day [...] Miscellaneous Notes * Telephone Encounter - Wanda Mckeon - 05/13/2016 9:08 AM EST Message on patient's voicemail stating that he cannot get another injection until 07/17/16 or after and he may want to have this done locally after he leaves the area. Asked him to call us if he has any questions. * Telephone Encounter - Crystal Hill RN - 05/10/2016 10:01 AM EST Name:Alvin Cat Patient's request for injection appointment of the Right shoulder has been reviewed by Clinical Support. Is it too soon for patient to have this injection? Yes, 04/16/16 Date of last injection? 04/16/16 Is this a synvisc/orthovisc injection? no Enter [employer] Prior Auth if Synvisc or Orthovisc injection. Does this injection need to be scheduled in radiology under fluoro? no Have orders been placed? no Injection within 3 months prior to joint arthroplasty or arthroscopy is associated with increased rates of postoperative infection: this includes, hip, knee, and shoulder. * Telephone Encounter - Jacob Will - 05/10/2016 9:44 AM EST Best phone # to reach the patient for [phone] Patient requests appointment for injection of the Right shoulder. Patient requests an injection of (product type: cortisone/Synvisc/Monovisc/other): cortisone. Patient is leaving the area and is hoping to have the appt 06-18-16 to 06-24-16 would beperfect as he leaving the area for extended period. He and Dr. Carter may have discussed a expedited schedule for injections. Some injections require prior authorization, special orders, [...] on filedocumented in this encounter Care Teams Extrusion Die Coordinator Relationship Specialty Start Date End Date Diana Weaver MD [address] [place] [address] PCP - General 05/22/10 09/11/17 documented as of this encounter
--- OUTSIDE RECORDS SUMMARY | 2024-03-12 00:11 | XMS_ITS | Encounter Summary ---
Author Organization [facility] Address [facility] [place] [address] Care Team Providers Care Missile Mechanic Name Role Phone Diana Weaver MD Primary Care Provider [phone] Encounter Details Date Type Department Care Team (Late st Contact Info) Description 02/18/2014 Orders [place] [address] Florentino Gregorio MD [facility] [place] [address] Bilateral hand pain (Primary Dx) Social History Tobacco Use Types [...] documented as of this encounter Results * XR Bilateral Hands [...] this encounter Visit Diagnoses Diagnosis Bilateral hand pain- Primary Pain in limb Bilateral hand pain Pain in limb documented in this encounter Care Teams Missile Mechanic Relationship Specialty Start Date End Date Diana Weaver MD [address] [place] [address] PCP - General 05/22/10 09/11/17 documented as of this encounter
--- OUTSIDE RECORDS SUMMARY | 2024-03-12 00:11 | XMS_ITS | Encounter Summary ---
[place] [address] Care Team Providers Care Therapist Speech Name Role Phone Diana Weaver MD Primary Care Provider [phone] Reason for Referral * Diagnostic Test (Routine) - Closed Specialty Diagnoses / Procedures Referred By Contac t Referred To Contact Radiology Diagnoses Disorder of rotator cuff, unspecified laterality Procedures MRI Shoulder Right WO Contrast (GENERIC) Oliver Carter MD [facility] [place] [address] Referral ID Status Reason Start Date Expiration Date V isits Requested Visits Authorized [id number] Closed Specialty Service Requested 02/13/2016 02/12/2017 1 1 Reason for Visit * Diagnostic Test (Routine) - Closed Specialty Diagnoses / Procedures Referred By Contac t Referred To Contact Radiology Diagnoses Disorder of rotator cuff, unspecified laterality Procedures MRI Shoulder Right WO Contrast (GENERIC) Oliver Carter MD [facility] [place] [address] Referral ID Status Reason Start Date Expiration Date V isits Requested Visits Authorized [id number] Closed Specialty Service Requested 02/13/2016 02/12/2017 1 1 Encounter Details Date Type Department Care Team (Latest Contact Info) Description 03/01/2016 9:17 AM EDT - 03/01/2016 11:59 PM EDT Hospital [place] [address] Oliver Carter MD [facility] DR [place] [address] Disorder of rotator cuff, unspecified laterality Discharge Disposition: Home Social History Tobacco Use [...] Priority Date/Time Associated Diagnosis Comments MRI SHOULDER RIGHT WO CONTRAST Routine 03/01/2016 10:28 AM EDT Disorder of rotator cuff, unspecified laterality documented in this encounter Results * MRI Shoulder Right [...] of the AC joint. Oliver Carter MD IMG MRI ORDERABLES documented in this encounter Visit Diagnoses Diagnosis Disorder of rotator cuff, unspecified laterality documented in this encounter Care Teams Therapist Speech Relationship Specialty Start Date End Date Diana Weaver MD [address] [place] [address] PCP - General 05/22/10 09/11/17 documented as of this encounter
--- OUTSIDE RECORDS SUMMARY | 2024-03-12 00:11 | XMS_ITS | Encounter Summary ---
Author Organization [facility] Address [facility] [place] [address] Care Team Providers Care Floor Sander Name Role Phone Diana Weaver MD Primary Care Provider [phone] Encounter Details Date Type Department Care Team (Late st Contact Info) Description 12/26/2015 11:00 AM EDT Office Visit Physical Therapy at [facility] [address] [place] [address] Marvin Wiseman, PT [facility] PHYSICAL MEDICINE & [place] [address] Acute pain of both shoulders Social History [...] of this encounter Progress Notes * Marvin iWseman, PT - 12/26/2015 11:00 AM EDT PHYSICAL THERAPY PROGRESS NOTE Date of Exam/First Treatment: 12/26/2015 Date of onset: 5 weeks Referring Provider: Diana Weaver Total Treatment time: 43 minutes Total Timed Code Treatment: 43 minutes Primary: Payor: MEDICARE / Plan: MEDICARE PART A & B / Product Type: *No Product type* / Medicare Certification period: 12/26/2015 - 01/23/17 Medicare Therapy G-Code Date Tracking: (Update G-Code status every 10 visits or when code changes) 1 2 3 4 5 6 7 8 9 10 11/23 12/10 12/18 12/25 Diagnosis: 1. Acute pain of both shoulders S: Patient reports reports a quick reach for his hat in the wind. Pain in both arms and left - no position helps - cues to sleep in recliner. here today, both to ask several questions on activity modification and treatments. O: Therex 2 unit, Manual 1 units: ?? Flexion and abduction to 75 deg., ER to near full in neutral, IR at start of treatment ?? Answered many questions on anatomy, pathophysiology, natural history and treatment options, activity limitations and modifications ?? pullies for flexion, scaption and IR ?? Supine joint mobilizations gr 3 posterior/traction, PROM, sleeper stretching A: Improved IR significantly after manual stretching. Quick reaching flared impingement. P: Added pullies for home. Continue per PT POC and goals. XXXXXXXXXXX FROM EVALUATION [id number] CLINICAL EVALUATION AND [...] of AROM in order maximize function Therapy Web Content Writer Goals (8 weeks) Patient to... 1. improve [...] shoulders documented in this encounter Care Teams Floor Sander Relationship Specialty Start Date End Date Diana Weaver MD [address] [place] [address] PCP - General 05/22/10 09/11/17 documented as of this encounter
--- OUTSIDE RECORDS SUMMARY | 2024-03-12 00:11 | XMS_ITS | Encounter Summary ---
Author Organization [facility] Address [facility] [place] [address] Care Team Providers Care County Judge Name Role Phone Diana Weaver MD Primary Care Provider [phone] Encounter Details Date Type Department Care Team (Latest Contact Info) Description 01/06/2016 - 01/06/2016 11:59 PM EDT Hospital Encounter [place] [address] Washington Deluca MD [facility] [place] [address] Pain Discharge Disposition: Home Social History Tobacco [...] FILM LIBRARY STORAGE ONLY CT HEAD Routine 01/06/2016 12:00 AM EDT Pain documented in this encounter Results * Film Library- Storage Only CT Head (01/06/2016 12:00 AM EDT) Narrative [facility] - 01/10/2016 9:09 AM EDT This exam is for storage only and is auto-finalizing. Washington Deluca MD IMG FILM LIBRARY O RDERABLES Performing Organization Address City/State/[facility] Co de Phone Number [place], [place] documented in this encounter Visit Diagnoses Diagnosis Pain Generalized pain documented in this encounter Care Teams County Judge Relationship Specialty Start Date End Date Diana Weaver MD [address] [place] [address] PCP - General 05/22/10 09/11/17 documented as of this encounter
--- OUTSIDE RECORDS SUMMARY | 2024-03-12 00:11 | XMS_ITS | Encounter Summary ---
Author Organization [facility] Address [facility] [place] [address] Care Team Providers Care Pulp Mill Supervisor Name Role Phone Diana Weaver MD Primary Care Provider [phone] Reason for Visit * Consultation (Routine) - Closed Specialty Diagnoses / Procedures Referred By Ronald parada Referred To Contact Neurology Diagnoses recurrent TIAs Shayy Diallo APRN [address] [place] [address] [facility] [address] [place] [address] Referral ID Status Reason Start Date Expiration Date V isits Requested Visits Authorized [id number] Closed Consult, Test & Treat Connection [facility] 01/09/2016 01/08/2017 1 1 Encounter Details Date Type Department Care Team (Late st Contact Info) Description 02/13/2016 11:00 AM EDT [place] [address] Washington Deluca MD [facility] [place] [address] Migraine aura without headache; Transient cerebral ischemia, unspecified type Social History Tobacco Use Types Packs/Day Years [...] Sign Reading Time Taken Comments Blood Pressure 124/81 02/13/2016 10:54 AM EDT Pulse 60 02/13/2016 10:54 AM EDT Temperature - - Respiratory Rate - - Oxygen Saturation - - Inhaled Oxygen Concentration - - Weight 86.2 kg (190 lb) 02/13/2016 10:54 AM EDT Height 177.8 cm (5' 10) 02/13/2016 10:54 AM EDT Body Mass Index 27.26 02/13/2016 10:54 AM EDT documented in this encounter Progress Notes * Washington Deluca MD - 02/13/2016 11:00 AM EDT Cerebrovascular Disease and Stroke Program Department of Neurology [place] [id number] t: [phone] / f: [phone] Date of Appointment: 02/13/2016 Patient: Alvin [place] PCP: DIANA WEAVER MD Consultation Requested By: Diana Weaver Md [address] [place] [id number] This 70 y.o. male is evaluated because of episodes thought to be possible TIAs. 14 yo had encepahlitis and in coma for 10 hours while in [facility]. Also seeing Ortho for shoulder issues. Sees them with an MRI on March 01. Has a hx of Bilat TKRs. On October 07, prior to taking brother out to lunch, was walking in park and had troubles getting out words to his partner and it passed in a few minutes and then at a restaurant had numbness R face and UE and was able to tell sister in law who is a physican. She wanted him to get attenetion but since he was in [place] he didn't want to. This passed without other events. On January 05 he had another event. Was in [employer] in [facility]. Had peripheral visual changes onR side, initially seemed out of focus and he noticed fluroescent lights and glare and couldn't takein letters when looking at signs with the right eye peripherally and passed in 5-[address] home some difficulties speaking and when partner asked him to repeat things, he had troubes saying weakness:, but thinks he could have spelled it out and was very clear-headed. They called here and spoke to our resident after he went to [facility] and Plavix and Lipitor started No recurrences. Brain MRI 2005 for HAs, was having headaches for weeks and they went away eventually. Occurred every day, usually in late AM and resolved by noon. Has a lifetime of visual experiences that are like looking through the opposite side of binoculars. If looks at a water glass, it seems to recede away and look smaller and his perspective changes. Lifelong ringing in the ears 20/01, high-pitched noise. Interested in sound yoga for meditation. No episodes of unilateral limb weakness. No past medical history on file. Patient Active Problem List Diagnosis Code ??? Osteoarthritis M19.90 ??? CIS - asbestos exposure ??? CIS - Bilateral knee osteoarthritis ??? CIS - Bilateral knee pain ??? BPH (benign prostatic hyperplasia) N40.0 ??? Erectile dysfunction N52.9 ??? CIS - rotator cuff tears ??? Condyloma A63.0 ? ? Rotator cuff disorder bilateral (L>R) M67.919 ??? 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 Pericardial effusion I31.3 ??? Dilated cardiomyopathy I42.0 ??? Dupuytren's disease M72.0 ??? Acute pain of both shoulders M25.511, M25.512 Allergies Allergen Reactions ??? Penicillins Other (See Comments) Unknown Outpatient Prescriptions Marked as Taking for the 02/13/16 encounter (Office Visit) with Washington Deluca MD Medication Sig Dispense Refill ??? atorvastatin (LIPITOR) 20 mg Tablet take 1 tablet by mouth at bedtime 0 ??? clopidogrel (PLAVIX) 75 mg Tablet take 1 tablet by mouth once daily 0 ??? valACYclovir (VALTREX) 1 gram Tablet take 2 tablets by mouth twice a day 0 ??? traMADol (ULTRAM) 50 mg Tablet Take 50 mg by mouth nightly. 0 ??? diphenhydrAMINE-Acetaminophen 25-500 mg Tablet Take 2 tablets by mouth nightly. ??? acetaminophen (TYLENOL) 500 mg tablet Take 1,000 mg by mouth 2 times daily. ??? sildenafil (VIAGRA) 100 mg tablet Take 100 mg by mouth as needed. 25 mg - 50 mg prn Social History Social History ??? Marital status: Single Spouse name: N/A ??? Number of children: N/A ??? Years of education: N/A Social History Main Topics ??? Smoking status: Former Smoker Quit date: 03/13/1981 ??? Smokeless tobacco: Never Used ??? Alcohol use 8.4 oz/week 7 Glasses of wine, 7 Cans of beer per week Comment: sometimes , daily ??? Drug use: No ??? Sexual activity: Not on file Other Topics Concern ??? 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 Enjoys hiking. 2 bros, no family hx of neurologic problems ROS: [chacon: X=present and if no X, was negative] headache glaucoma X transient loss of vision double vision dizziness X difficulty speaking weakness of arm/leg X numbness of arm/leg unsteadiness walking X falls seizures difficulty swallowing memory loss X ringing in ears X snoring incontinence chest pain palpitations trouble breathing X trouble lying flat nausea/vomiting indigestion X abdominal pain X rashes X birthmarks easy bruising miscarriages blood clots in legs (DVT) poor circulation X erectile dysfunction depression anxiety X joint pains fatigue Exam: Vitals: 02/13/16 1054 BP: 124/81 BP Location (NB): Right arm Patient Position: Sitting BP Cuff Sizes: Adult (25-34 cm) Pulse: 60 Weight: 86.2 kg (190 lb) Height: 177.8 cm (5' 10) General: Well appearing patient, nontoxic. Sclerae anicteric. No cervical adenopathy, thyromegaly or carotid/vertebral bruits. No audible wheezing. No edema lower extremities. Heart regular, no murmur. Radial pulses palpable and symmetric. Neuro: MS--alert, oriented; speech fluent/articulate, no dysarthria, paraphasic errors or holly aphasia; naming, repetition, recall intact. CN--PERRL w/o anisocoria; no ptosis; EOMI; visual fitch intact to confrontation; facial sensation;facial smile/grimace intact; hearing intact to finger rub; tongue/palate midline. Motor--No pronator drift; bulk and tone normal. del bic tri br WE WF FF IP Qu BF TA EHL L: 5 5 5 5 5 5 5 5 5 5 5 5 R: 5 5 5 5 5 5 5 5 5 5 5 5 Sens--light touch, temp intact throughout; No DSSE. Coord--FTN and HTS performed w/o dysmet Data review: TTE here in October was unrevealing. CT head December 2015 unremarkabnle. MRI head report 2005 normal. CUS [facility] September 2015 normal Impression and Recommendations I think he has migraine aura without headache. He has had the 3 most common aura symptoms now (visuas, sensory, and isolated word finding problems. If he has other symptoms more atypical of migraine aura, I would consider additional testing including a head MRI and MRA. Risk factors for vasculardisease are being addressed. ??? Return to clinic as needed. I thought he does not need any additional diagnostic studies unless the symptoms change. I thought he can and bleeds a lot and just take aspirin. documented in this encounter Plan of Treatment Not on file documented as of this encounter Visit Diagnoses Diagnosis Migraine aura without headache Migraine with aura, without mention of intractable migraine without mention of status migrainosus Transient cerebral ischemia, unspecified type documented in this encounter Care Teams Pulp Mill Supervisor Relationship Specialty Start Date End Date Diana Weaver MD [address] [place] [address] PCP - General 05/22/10 09/11/17 documented as of this encounter
--- OUTSIDE RECORDS SUMMARY | 2024-03-12 00:11 | XMS_ITS | Encounter Summary ---
Author Organization [facility] [place] [address] Care Team Providers Care Obstetric Anaesthetist Name Role Phone Diana Weaver MD Primary Care Provider Reason for Visit * Reason Onset Date Comments Reminder Appointment 05/29/2015 Encounter Details Date Type Department Care Team (Late st Contact Info) Description 05/29/2015 Telephone [place] [id number] Ed Post MD [facility] [place] [address] Reminder Appointment Social History Tobacco Use Types Packs/Day [...] * Telephone Encounter - Thuan Aquino - 05/30/2015 10:01 AM EST Scheduled. * Telephone Encounter - Raquel Maynard - 05/29/2015 3:10 PM EST Left message for patient to call to schedule their annual follow-up appointment. Xrays needed. XR BILAT TKA 05/08/10 documented in this encounter Plan of Treatment Not on file documented as of this encounter Visit Diagnoses Not on filedocumented in this encounter Care Teams Obstetric Anaesthetist Relationship Specialty Start Date End Date Diana Weaver MD [address] [place] [address] PCP - General 05/22/10 09/11/17 documented as of this encounter
--- OUTSIDE RECORDS SUMMARY | 2024-03-12 00:11 | XMS_ITS | Encounter Summary ---
[place] [address] Care Team Providers Care Mine Equipment Design Engineer Name Role Phone Diana Weaver MD Primary Care Provider [phone] Reason for Visit * Reason Comments Inguinal Hernia Encounter Details Date Type Department Care Team (Late st Contact Info) Description 07/28/2013 10:15 AM EST Office [place] [address] Renzo Velasquez MD [address] [place] [address] [place] [address] Bilateral recurrent inguinal hernia without obstruction or gangrene (Primary Dx) Discharge Disposition: Home Social History [...] Sign Reading Time Taken Comments Blood Pressure 139/79 07/28/2013 10:13 AM EST Pulse 74 07/28/2013 10:13 AM EST Temperature - - Respiratory Rate 16 07/28/2013 10:13 AM EST Oxygen Saturation 100% 07/28/2013 10:13 AM EST Inhaled Oxygen Concentration - - Weight 85.5 kg (188 lb 7.9 oz) 07/28/2013 10:13 AM EST Height - - Body Mass Index 26.66 04/22/2013 10:44 AM EDT documented in this encounter Progress Notes * Renzo Velasquez MD - 07/28/2013 11:32 AM EST HPI: The pt was referred from Diana Weaver for evaluation of a symptomatic hernia. The patient developed a bulge in the left groin approximately several years ago. Recently it has started to cause mild pain. He has discomfort when lifting or after going on walks. He had a right inguinal hernia repair 35 years ago and states that her right side has been bothering him as well after walks. He has not noticed a bulge in the right. He is able to reduce the bulge on the left which relieves the pain.The left inguinal hernia has increased steadily in size over the past few years. Past Medical History:No past medical history on file. Past Surgical History: Past Surgical History Procedure Date ??? Created by interface arthroscopic knee surgeries x3 Procedure Date: 2004 ??? Created by interface Entered not Verified Procedure Date: 04/24/2010 ??? Created by interface hernia repair Procedure Date: 1982 ??? Created by interface pilonidal cyst removal Procedure Date: 1977 Medications: Outpatient Prescriptions Marked as Taking for the 07/28/13 encounter (Office Visit) with Alison Velasquez MD Medication Sig Dispense Refill ??? ALPRAZolam (XANAX) 0.25 mg tablet Take 0.25 mg by mouth nightly as needed. ??? aspirin 81 mg tablet Take 81 mg by mouth daily. ??? [DISCONTINUED] diphenhydrAMINE-Acetaminophen (TYLENOL PM EXTRA STRENGTH) 25- 500 mg Tab Take by mouth nightly as needed. ? ? GLUCOSAM SUL NA/CHONDR NORTH A NA (GLUCOSAMINE & CHONDROIT SUL.NA ORAL) Take by mouth. ??? multivitamin (THERAGRAN) tablet Take 1 tablet by mouth daily. ??? SAW PALMETTO XTR/ZINC PICOLIN (SAW PALMETTO EXTRACT ORAL) Take by mouth. ??? amitriptyline (ELAVIL) 25 mg tablet Take 25 mg by mouth nightly. ??? clindamycin (CLEOCIN) 150 mg capsule Take 150 mg by mouth 2 times daily. Prior to dental procedures ??? acetaminophen (TYLENOL) 500 mg tablet Take 1,000 mg by mouth 2 times daily. ??? ibuprofen (ADVIL;MOTRIN) 200 mg tablet Take 600 mg by mouth 2 times daily as needed. ??? ACYCLOVIR ORAL Take 2,000 mg by mouth 2 times daily as needed. ??? sildenafil (VIAGRA) 100 mg tablet Take 100 mg by mouth as needed. 25 mg - 50 mg prn Allergies: Allergies Allergen Reactions ??? Penicillins Other (See Comments) Unknown Family History: Father: age 89, COPD Mother: age 91, coronary artery disease Brother from morbid obesity H. 39 Brother with testicular cancer in his 20s Social History: History Social History ??? Marital Status: Single Spouse Name: N/A Number of Children: N/A ??? Years of Education: N/A Occupational History ??? Not on file. Social History Main Topics ??? Smoking status: Former Smoker Quit date: 03/13/1981 ??? Smokeless tobacco: Never Used ??? Alcohol Use: Yes Comment: sometimes ??? Drug Use: No ??? Sexually Active: Not on file Other Topics Concern ??? Not on file Social History Narrative ??? No narrative on file Review of systems: Heart: The patient had an episode of pericarditis with pericardial effusion 2 years ago. This resolved after pericardiocentesis. He has had no prior problems since and had a normal echocardiogram 6 months ago. Lungs: Normal GI: Constipation controlled with MiraLAX Genitourinary occasional bladder spasms Musculoskeletal: Patient has muscle aches in his shoulders for which she takes ibuprofen and Tylenol Hematologic: No bleeding problems General: patient has had significant weight loss secondary to diet and exercise Physical Examination: Filed Vitals: 07/28/13 1013 BP: 139/79 Pulse: 74 Resp: 16 Heart: Regular rate and rhythm without murmers. Lungs: clear to auscultation bilaterally Abdomen: soft, non tender, non distended, no palpable masses. There is a fairly large reducible left inguinal hernia which extends down to the top of the scrotum but not into the scrotum. The right inguinal canal has a small reducible hernia. Both hernias are mildly tender to reduce. Testicular exam: normal, no masses or tenderness. Assessment: Patient with small recurrent and symptomatic right inguinal hernia. Larger reducible but symptomatic left inguinal hernia. Plan: We discussed the risks and benefits of repairing both hernias which could be done at the sametime. We discussed that due to bilateral hernias and recurrent hernias are best done laparoscopically. The risks and benefits were explained to the patient including the risks of bleeding and infection. The risks hernia recurrence was explained. The risk of ileoinguinal nerve injury and recurrent pain were discussed. He understands and wishes to proceed. documented in this encounter Plan of Treatment Not on file documented as of this encounter Visit Diagnoses Diagnosis Bilateral recurrent inguinal hernia without obstruction or gangrene- Primary Inguinal hernia without mention of obstruction or gangrene, recurrent bilateral documented in this encounter Care Teams Mine Equipment Design Engineer Relationship Specialty Start Date End Date Diana Weaver MD [address] [place] [address] PCP - General 05/22/10 09/11/17 documented as of this encounter
--- OUTSIDE RECORDS SUMMARY | 2024-03-12 00:11 | XMS_ITS | Encounter Summary ---
[place] [address] Care Team Providers Care Pourer Off Name Role Phone Diana Weaver MD Primary Care Provider [phone] Reason for Visit * Reason Comments Follow-up Encounter Details Date Type Department Care Team (Latest Contact Info) Description 09/01/2013 3:00 PM EST Office [place] [address] Renzo Velasquez MD [address] [place] [address] [place] [address] Postoperative hernia (Primary Dx) Discharge Disposition: Home Social History [...] Sign Reading Time Taken Comments Blood Pressure - - Pulse - - Temperature - - Respiratory Rate - - Oxygen Saturation - - Inhaled Oxygen Concentration - - Weight 86.5 kg (190 lb 11.2 oz) 09/01/2013 2:56 PM EST Height - - Body Mass Index 26.98 08/16/2013 1:22 PM EST documented in this encounter Progress Notes * Renzo Velasquez MD - 09/01/2013 4:33 PM EST Post-op Bilateral laparoscopic Inguinal Hernia repair Subjective: The patient is three weeks status post inguinal bilateral laparoscopic inguinal hernia repair with mesh 4 recurrent right inguinal hernia and a new left inguinal hernia. He had to have a Thompson catheter placed postoperatively as he is unable to void and this caused him significant discomf ort but he has been able to void since it was removed the following day. He had some constipation which has resolved after stopping the pain medications . He is having minimal discomfort in the groin. He is now eating well and is having no problems moving his bowels. Objective: There were no vitals filed for this visit. The wounds are healing well with no erythema or drainage. There is some induration beneath the incision. There is no evidence of hernia recurrence. There is minimal ecchymosis in the scrotum. Assessment: Doing well status post bilateral laparoscopic inguinal hernia repair. Plan: The patient will return if he develops any problems. He can resume normal activity. documented in this encounter Plan of Treatment Not on file documented as of this encounter Visit Diagnoses Diagnosis Postoperative hernia- Primary Incisional hernia without mention of obstruction or gangrene documented in this encounter Care Teams Pourer Off Relationship Specialty Start Date End Date Diana Weaver MD [address] [address] PCP - General 05/22/10 09/11/17 documented as of this encounter
--- OUTSIDE RECORDS SUMMARY | 2024-03-12 00:11 | XMS_ITS | Encounter Summary ---
Author Organization [facility] Address [facility] [place] [address] Care Team Providers Care Railroad Car Loader Name Role Phone Diana Weaver MD Primary Care Provider [phone] Reason for Visit * Reason Comments Aftercare Of Tjr Bilat TKA 05/08/10 Encounter Details Date Type Department Care Team (Late st Contact Info) Description 06/01/2015 3:00 PM EST Office [place] [address] Ed Post MD [facility] DR [place] [address] S/P TKR (total knee replacement) using cement, unspecified laterality Social History Tobacco Use Types [...] Sign Reading Time Taken Comments Blood Pressure 151/74 06/01/2015 2:54 PM EST Pulse 75 06/01/2015 2:54 PM EST Temperature - - Respiratory Rate - - Oxygen Saturation - - Inhaled Oxygen Concentration - - Weight 83.9 kg (185 lb) 06/01/2015 2:54 PM EST v erbal Height 180.3 cm (5' 11) 06/01/2015 2:54 PM EST verbal Body Mass Index 25.8 06/01/2015 2:54 PM EST documented in this encounter Progress Notes * Dario Hernandez PA - 06/01/2015 3:35 PM EST SURGERY DATE: 05/08/2010 ED POST MD PROCEDURE PERFORMED: Bilateral total knee arthroplasty. HPI: 69 yo male returns 5 years from his knee replacements. He has continued to do well. There is no pain. ROM and stability are not limiting. He has no swelling. He has no complaints in regard to the knees. His medical health is stable aside from the knees. PE: Ambulatory without assist or antalgia. There is no effusion to either knee. No pain or laxity with varus and valgus stress. ROM from 0-120 today. No tenderness about the knees. Excellent quad strength X-rays: Bilateral knee prostheses in place without hardware complication identified. Subtle chronic calcification of the distal quadriceps tendon on the left is again appreciated. No evidence of joint effusion bilaterally. Bilateral patellar enthesophytes. Atherosclerotic change. Assessment: S/P Bilateral TKA Plan: He is doing well. We reviewed joint precautions and infection management. Antibiotic prophylaxis was recommended. We discussed appropriate activities to prevent premature implant failure. I encouraged continued joint specific rehab exercises. We'll plan to f/u in 2 year(s) or sooner as needed. documented in this encounter Plan of Treatment Not on file documented as of this encounter Visit Diagnoses Diagnosis S/P TKR (total knee replacement) using cement, unspecified laterality documented in this encounter Care Teams Railroad Car Loader Relationship Specialty Start Date End Date Diana Weaver MD [address] [place] [address] PCP - General 05/22/10 09/11/17 documented as of this encounter
--- OUTSIDE RECORDS SUMMARY | 2024-03-12 00:11 | XMS_ITS | Encounter Summary ---
Author Organization Formerly [facility] [place] [address] Care Team Providers Care Technical Sales Associate Name Role Phone Diana Weaver MD Primary Care Provider [phone] Encounter Details Date Type Department Care Team (Late st Contact Info) Description 08/16/2013 2:50 PM EST Anesthesia Event [place] [id number] Iris Edmond MD [facility] [address] [place] [address] Precious Atkinson MD [facility] [place] [address] Anesthesia Record Procedure Summary Procedure Name Responsible Anesthesiologist Anesthesia Start Time Anesthesia Stop Time LAPAROSCOPIC HERNIA REPAIR, INITIAL INGUINAL- MAYRA (WRVU 6.36) (Bilateral: Pelvis) Iris Edmond MD 08/16/13 1450 08/16/13 1719 Events Date Time Event Comment 08/16/2013 1416 1450 Start 1453 AN Verify 1453 An Start Data 1457 An Induction 1500 An Intubation 1504 Anesthesia Ready 1517 Quick Note OG placed. 1525 Break/Relief In 1526 Quick Note Local by surgeo n - 0.25% bupivacaine w/ epi 1540 Break/Relief Out 1712 Extubation/LMA Out 1713 an stop data 1719 Stop Meds Name Total Midazolam 2 mg fentaNYL 200 mcg lidocaine IV 40 mg propofol 300 mg Rocuronium 110 mg PHENYLephrine 560 mcg ePHEDrine 30 mg ondansetron 4 mg dexAMETHasone 4 mg Neostigmine 4 mg Glycopyrrolate 1 mg lactated ringers infusion 1,000 mL 0 mL * Agents Name O2 Air Sevoflurane (et) * Blood No blood administrations on file. Lines, Drains, and Airways Type Details Placement Removal (RETIRED) Peripheral IV Line - Single Lumen 12/25/11; 08/16/13; 225112/25/11 0000 by Devang Barroso RN 08/16/13 2252 by Matt Ron RN Incision 08/16/13; abdomen (multiple trocar sites); 02/25/22 (LDA cleanup utility RA#[id number]); 1715 (LDA cleanup utility RA#[id number]) 08/16/13 0000 by Patel Vasques RN 02/25/22 1715 by Jeannine Echols Urethral Catheter 08/16/13; indwelling double lumen catheter; 100% silicone; 16; inserted; 1; drainage bag to dependent drainage; 08/16/13; 225108/16/13 0000 by Patel Vasques RN 08/16/13 2252 by Matt Ron, RN (RETIRED) Peripheral IV Line - Single Lumen 08/16/13; 1356; 08/16/13; 225108/16/13 1356 by Margarita Bahena RN 08/16/132251 by Matt Ron, RN (RETIRED) Non-Surgical Airway Mask Ventilation: Easy (1); ETT Type: Cuffed, Oral; ETT Size: 8 mm; Removal Date: 08/16/13; Removal Time: 171108/16/13 1515 by 08/16/13 1712 by Precious Atkinson MD documented in this encounter Social History Tobacco Use Types Packs/Day Years [...] on file documented as of this encounter OR Notes * Anesthesia Postprocedure Evaluation - Precious Juarez MD - 08/16/2013 5:27 PM EST Patient: Alvin Cat Procedure(s) Performed: Procedure(s): LAPAROSCOPIC HERNIA REPAIR, INGUINAL INGUINAL- MAYRA MODIFIER TEPP MODIFIER MESH,ATRIUM CENTRIFX Actual Anesthetic: general Patient location: PACU Post-op pain: Adequate analgesia Post-op nausea: no nausea or vomiting Last Vitals: Filed Vitals: 08/16/13 1322 BP: 132/71 Pulse: 71 Temp: 36.5 ??C (97.7 ??F) Resp: 18 Post-op cardiovascular and respiratory status: is stable Level of consciousness: awake, alert and oriented Complications: no apparent complications and tolerated the procedure well Fluid Status: normal * Anesthesia Preprocedure Evaluation - Diana Serra MD - 08/13/2013 3:37 PM EST Pre-Anesthesia Evaluation for: Alvin Cat a 68 y.o. male. Procedure(s): LAPAROSCOPIC HERNIA REPAIR, INGUINAL INGUINAL- MAYRA MODIFIER TEPP MODIFIER MESH,ATRIUM CENTRIFX Patient Active Problem List Diagnosis ??? Pericardial effusion ??? Dilated cardiomyopathy ? ? Rotator cuff disorder bilateral (L>R) ??? 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 Condyloma ??? Osteoarthritis ??? 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 CIS - Bilateral knee pain ??? CIS - rotator cuff tears ??? BPH (benign prostatic hyperplasia) ??? Erectile dysfunction ??? CIS - asbestos exposure No past medical history on file. Past Surgical History Procedure Date ??? Created by interface arthroscopic knee surgeries x3 Procedure Date: 2004 ??? Created by interface Entered not Verified Procedure Date: 04/24/2010 ??? Created by interface hernia repair Procedure Date: 1982 ??? Created by interface pilonidal cyst removal Procedure Date: 1977 History Substance Use Topics ??? Smoking status: Former Smoker Quit date: 03/13/1981 ??? Smokeless tobacco: Never Used ??? Alcohol Use: Yes Comment: sometimes History Drug Use No Allergies Allergen Reactions ??? Penicillins Other (See Comments) Unknown Medications: MAR and/or home medications have been reviewed. Physical Exam: There were no vitals filed for this visit. There is no height or weight on file to calculate BMI. Airway Assessment: Mallampati: II TM distance: >3 FB Neck ROM: full 04/2010 - Mac 4 Gr 2-3 Cardiovascular Assessment: Pulmonary Assessment: Dental Assessment: - normal exam [facility] Assessment: Patient is wearing No contact(s). IV access: Peripheral line Other exam findings: TTE SUMMARY: 1. There is no pericardial effusion. 2. The left ventricular chamber size is normal. There is normal global left ventricular systolic function. Ejection fraction is estimated to be 65%. There are no left ventricular segmental wall motion abnormalities. 3. Right ventricular chamber size, wall thickness, and systolic function are within normal limits. No pulmonary hypertension is noted. 4. There is no hemodynamically significant valve disease. Anesthesia Plan: ASA 2 general, with a(n) intravenous induction Mr. Cat is a 68 yo M with bilateral inguinal hernias Lgreater than R, here for Laparoscopic repair with mesh. PMHx: Viral pericarditis 12/2011 - most recent TTE WNL as above OA - s/p B TKR Bilat rotator cuff injury Erectile dysfunction BPH Anxiety Former smoker - quit 1980, 1-2 ppd prior No recent URI Denies GERD Previously grade 2/3 with Mac 4. No history of anesthetic complications. Allergies: PCN Wt: 85.5 kg NPO: solids 2100, liquids 1000(blk tea) Code: Full No recent labs. 11/2011 Cr 1.07, eGFR greater than 60 Plan: GAET([place] available), standard ASA monitors, adequate IV access. Anesthetic plan along with risks discussed with patient. All questions answered. Region - Other Informed Consent: Anesthetic plan and risks discussed with patient. Use of blood products discussed with patient whom consented to blood products. Plan discussed with resident. [facility]. Assessment: documented in this encounter Plan of Treatment Not on file documented as of this encounter Visit Diagnoses Not on filedocumented in this encounter Administered Medications Inactive Administered Medications - up to 3 most recent administrations Medication Order MAR Action Action Date Dose Rate Site dexamethasone (DECADRON) injection PRN, Starting on Fri08/16/13 at 1518, Until Fri08/16/13 at 1725, Anesthesia Intra-op, Routine Given 08/16/2013 3:18 PM EST 4 mg ePHEDrine Sulfate in sodium chloride 0.9% (PF) 50 mg/10 mL (5 mg/mL) injection Syrg PRN, Starting on Fri08/16/13 at 1542, Until Fri08/16/13 at 1725, Anesthesia Intra-op Given 08/16/2013 3:49 PM EST 10 mg Given 08/16/2013 3:47 PM EST 10 mg Given 08/16/2013 3:44 PM EST 5 mg fentaNYL 50mcg/mL injection PRN, Starting on Fri08/16/13 at 1512, Until Fri08/16/13 at 1725, Pain, Anesthesia Intra-op, Routine Given 08/16/2013 5:00 PM EST 50 mcg Given 08/16/2013 4:08 PM EST 50 mcg Given 08/16/2013 2:57 PM EST 100 mcg glycopyrrolate (ROBINUL) injection PRN, Starting on Fri08/16/13 at 1543, Until Fri08/16/13 at 1725, Anesthesia Intra-op, Routine Given 08/16/2013 4:58 PM EST 0.8 mg Given 08/16/2013 3:46 PM EST 0.1 mg Given 08/16/2013 3:43 PM EST 0.1 mg lactated ringers infusion 1,000 mL 1,000 mL, at 100 mL/hr, Intravenous, CONTINUOUS, Starting on Fri08/16/13 at 1415, Until Fri08/16/13 at 2314, Day of Surgery (Day of Procedure) New Bag 08/16/2013 4:09 PM EST mL New Bag 08/16/2013 2:00 PM EST 1,000 mLs 100 mL/hr lidocaine (PF) (XYLOCAINE) 100 mg/5 mL (2 %) injection PRN, Starting on Fri08/16/13 at 1512, Until Fri08/16/13 at 1725, Anesthesia Intra-op, Routine Given 08/16/2013 2:57 PM EST 40 mg midazolam (PF) (VERSED) 1 mg/mL injection PRN, Starting on Fri08/16/13 at 1450, Until Fri08/16/13 at 1725, Sleep, Anesthesia Intra-op, Routine Given 08/16/2013 2:50 PM EST 2 mg neostigmine (PROSTIGMINE) injection PRN, Starting on Fri08/16/13 at 1658, Until Fri08/16/13 at 1725, Anesthesia Intra-op, Routine Given 08/16/2013 4:58 PM EST 4 mg ondansetron (ZOFRAN) injection PRN, Starting on Fri08/16/13 at 1659, Until Fri08/16/13 at 1725, Nausea, Anesthesia Intra-op, Routine Given 08/16/2013 4:59 PM EST 4 mg PHENYLephrine HCl in NS (PF) (ASTER-SYNEPHRINE) 0.8 mg/10 mL (80 mcg/mL) injection Syrg PRN, Starting on Fri08/16/13 at 1523, Until Fri08/16/13 at 1725, Anesthesia Intra-op, Routine Given 08/16/2013 4:56 PM EST 80 mcg Given 08/16/2013 4:42 PM EST 80 mcg Given 08/16/2013 4:23 PM EST 80 mcg propofol (DIPRIVAN) 10 mg/mL bolus injection (Anesthesia) PRN, Starting on Fri08/16/13 at 1457, Until Fri08/16/13 at 1725, Anesthesia Intra-op Given 08/16/2013 2:59 PM EST 100 mg Given 08/16/2013 2:57 PM EST 200 mg rocuronium (ZEMURON) injection PRN, Starting on Fri08/16/13 at 1457, Until Fri08/16/13 at 1725, Anesthesia Intra-op, Routine Given 08/16/2013 4:35 PM EST 10 mg Given 08/16/2013 4:26 PM EST 10 mg Given 08/16/2013 3:54 PM EST 20 mg documented in this encounter Care Teams Technical Sales Associate Relationship Specialty Start Date End Date Diana Weaver MD [address] [place] [address] PCP - General 05/22/10 09/11/17 documented as of this encounter
--- OUTSIDE RECORDS SUMMARY | 2024-03-12 00:11 | XMS_ITS | Encounter Summary ---
Author Organization [facility] Address [facility] [place] [address] Care Team Providers Care Terra Cotta Mold Maker Name Role Phone Diana Weaver MD Primary Care Provider [phone] Encounter Details Date Type Department Care Team (Late st Contact Info) Description 01/04/2016 9:00 AM EDT Office Visit Physical Therapy at [facility] [address] [place] [address] Marvin Wiseman, PT [facility] PHYSICAL MEDICINE & [place] [address] Acute pain of both shoulders Social History [...] Progress Notes * Marvin Wiseman, PT - 01/04/2016 8:58 AM EDT PHYSICAL THERAPY PROGRESS NOTE Date of Exam/First Treatment: 01/04/2016 Date of onset: 5 weeks Referring Provider: Diana Weaver Total Treatment time: 50 minutes Total Timed Code Treatment: 40 minutes Primary: Payor: MEDICARE / Plan: MEDICARE PART A & B / Product Type: *No Product type* / Medicare Certification period: 01/04/2016 - 01/23/17 Medicare Therapy G-Code Date Tracking: (Update G-Code status every 10 visits or when code changes) 1 2 3 4 5 6 7 8 9 10 11/23 12/10 12/18 12/25 01/03 Diagnosis: 1. Acute pain of both shoulders S: Patient reports variances of pain. Pt states he is only making a little headway. O: Therex 2 unit, Manual 1 units: Upper Extremity Range of Motion (ROM) and Strength (MMT): Affected Side: bilateral ?? AROM RIGHT AROM LEFT Shoulder flexion 0-138*, passive near full 0-145, passive near full abduction 0-135* significant winging, passive near full 0-150, passive near full ER 0-72*, passive near full 0-80*, ~ 80 deg IR L3* T12* ?? UBE x 3 min on level 2.5 ?? Sleeper stretch ?? pullies for flexion, scaption and IR ?? PROM and joint mobilizations, gr 3 posterior/traction ?? Answered many questions on anatomy, pathophysiology, natural history and treatment options, activity limitations and modifications A: Shoulder gets sensitive quickly. Difficulty making gains due to this. P: Continue per PT POC and goals. 10 min ice after XXXXXXXXXXX FROM EVALUATION [...] of AROM in order maximize function Therapy Tomb Maker Helper Goals (8 weeks) Patient to... 1. improve [...] shoulders documented in this encounter Care Teams Terra Cotta Mold Maker Relationship Specialty Start Date End Date Diana Weaver MD [address] [place] [address] PCP - General 05/22/10 09/11/17 documented as of this encounter
--- OUTSIDE RECORDS SUMMARY | 2024-03-12 00:11 | XMS_ITS | Encounter Summary ---
Author Organization [facility] Address [facility] [place] [address] Care Team Providers Care Poultry Farm Laborer Name Role Phone Diana Weaver MD Primary Care Provider [phone] Reason for Visit * Physical Therapy (Routine) - Closed Specialty Diagnoses / Procedures Referred By Ronald parada Referred To Contact Physical Therapy Diagnoses Disorder of rotator cuff of both shoulders Oliver Carter MD [facility] [place] [address] [facility] [address] [place] [address] Referral ID Status Reason Start Date Expiration Date V isits Requested Visits Authorized [id number] Closed Evaluate and Treat 04/16/2016 04/16/2017 1 1 Encounter Details Date Type Department Care Team (Late st Contact Info) Description 04/16/2016 1:00 PM EDT Office Visit Physical Therapy at [facility] [address] [place] [id number] Marvin Wiseman, PT [facility] PHYSICAL MEDICINE & [place] [address] Acute pain of both shoulders Social History [...] Progress Notes * Marvin Wiseman, PT - 04/16/2016 1:00 PM EDT ?? PHYSICAL THERAPY PROGRESS NOTE Date of Exam/First Treatment: 04/16/2016 Date of onset: 5 weeks Referring Provider: Diana Weaver Total Treatment time: 45 minutes Total Timed Code Treatment: 40 minutes Primary: Payor: MEDICARE / Plan: MEDICARE PART A & B / Product Type: *No Product type* / Medicare Certification period: 11/24/15- 01/24/16 = old New: Medicare Certification period: 01/18/2016 - 03/20/16 Newest: Medicare Certification period: 04/16/16- 05/17/16 Medicare Therapy G-Code Date Tracking: (Update G-Code status every 10 visits or when code changes) 1 2 3 4 5 6 7 8 9 10 11/23 12/10 12/18 12/25 01/03 01/10 01/17 8/04/16 Diagnosis: 1. Acute pain of both shoulders S: Pt cancelled surgery - wants to discuss working on anterior deltoid retraining program. Functional Limitations / Exacerbating factors of pain: sleeping, right arm elevation, reaching forward O: Pt elevation 140 deg today - painful arc 25 min discussion/application of deltoid re-education program with answering questions, reviewing protocol/research A/P: Pt pleased with instruction on program and discussion of functional activities and precautions. Likely his last visit, but left open one month as he decided not to do surgery 30 min total 25 min therex [id number] FROM EVALUATION [id number] CLINICAL [...] of AROM in order maximize function Therapy Project Development Director Goals (8 weeks) Patient to... 1. improve [...] shoulders documented in this encounter Care Teams Poultry Farm Laborer Relationship Specialty Start Date End Date Diana Weaver MD [address] [place] [address] PCP - General 05/22/10 09/11/17 documented as of this encounter
--- OUTSIDE RECORDS SUMMARY | 2024-03-12 00:11 | XMS_ITS | Encounter Summary ---
Author Organization [facility] Address [facility] [place] [address] Care Team Providers Care Graphic Artist Name Role Phone Diana Weaver MD Primary Care Provider [phone] Encounter Details Date Type Department Care Team (Latest Contact Info) Description 04/22/2013 9:45 AM EDT - 04/22/2013 11:59 PM EDT Hospital Encounter XRay at [address] [place] [address] H/O arthroplasty Social History Tobacco Use Types Packs/Day Years [...] mg - 50 mg prn diphenhydrAMINE-Acetami nophen (TYLENOL PM EXTRA STRENGTH) 25-500 mg Tab Take by mouth nightly as needed. 07/28/2013 ALPRAZolam (XANAX) 0.25 mg tablet Take 0.25 [...] XR KNEE AP AND LAT BILAT Routine 04/22/2013 9:56 AM EDT H/O arthroplasty documented in this encounter Results * XR knee bilateral 1 or 2 view (04/22/2013 9:56 AM EDT) Anatomical Region Laterality Modality Knee Bilateral Radiographic Marsha ging 04/22/2013 9:56 AM EDT Narrative 04/22/2013 10:42 AM EDT Examination KNEE BILATERAL 1 OR 2 VIEWS Clinical History F/U BILAT TKA'S ??DOS 05/08/10 Comparison 05/16/2011. Technique AP and lateral views of the knees. Findings The patient is status post bilateral total knee replacement, no radiographic sign of loosening or infection. ??No sign of significant joint effusion. ??Note made of several small calcifications in the distal left quadriceps tendon. ?? These findings were present previously. Impression Status post bilateral total knee replacement. ??Mild left quadriceps tendon calcification is unchanged. ??No sign of loosening or infection of bilateral total knee prostheses. Procedure Note Viet Locke MD - 04/22/2013 Examination KNEE BILATERAL 1 OR 2 VIEWS Clinical History F/U BILAT TKA'S DOS 05/08/10 Comparison 05/16/2011. Technique AP and lateral views of the knees. Findings The patient is status post bilateral total knee replacement, noradiographic sign of loosening or infection. No sign of significant joint effusion.Note made of several small calcifications in the distal left quadriceps tendon. These findings were present previously. Impression Status post bilateral total knee replacement. Mild left quadriceps tendon calcification is unchanged. No sign of loosening or infection ofbilateral total knee prostheses. Ed Post MD IMG DX ORDERABLES documented in this encounter Visit Diagnoses Diagnosis H/O arthroplasty Personal history of surgery to other organs documented in this encounter Care Teams Graphic Artist Relationship Specialty Start Date End Date Diana Weaver MD [address] [place] [address] PCP - General 05/22/10 09/11/17 documented as of this encounter
--- OUTSIDE RECORDS SUMMARY | 2024-03-12 00:11 | XMS_ITS | Encounter Summary ---
Author Organization [facility] Address [facility] [place] [address] Care Team Providers Care Appian Developer Name Role Phone Diana Weaver MD Primary Care Provider [phone] Reason for Visit * Reason Comments Shoulder Pain bilateral shoulder p ain w/ significant loss of motion in right Encounter Details Date Type Department Care Team (Late st Contact Info) Description 03/13/2016 11:30 AM EDT Office [place] [address] Oliver Carter MD [facility] [place] [address] Complete rotator cuff tear of left shoulder; Disorder of rotator cuff, unspecified laterality Social [...] Sign Reading Time Taken Comments Blood Pressure 132/66 03/13/2016 11:29 AM EDT Pulse 66 03/13/2016 11:29 AM EDT Temperature - - Respiratory Rate - - Oxygen Saturation - - Inhaled Oxygen Concentration - - Weight 84.8 kg (187 lb) 03/13/2016 11:29 AM EDT fully clothed Height 177.8 cm (5' 10) 03/13/2016 11:29 AM EDT in shoes Body Mass Index 26.83 03/13/2016 11:29 AM EDT documented in this encounter Progress Notes * Oliver Carter MD - 03/13/2016 11:30 AM EDT Mr. Cat returns today for discussion of the results of the MRI of his right shoulder performed approximately 2 to 3 weeks ago. Briefly, Mr. Cat is a patient I have followed off and on for the past 4 or 5 years for rotator cuff tendon symptoms, but he has always responded well to simple nonoperative treatments. However, approximately 5 months ago, he was pulling a tree out of the ground when he felt his shoulder give and he had immediate sharp pain in the shoulder. He has tried to treat himself with acupuncture treatments as well as a course of physical therapy, but continues to have pain and weakness through the mid arc of abduction and forward flexion on that side. We therefore chose to obtain an MRI to evaluate for integrity of his rotator cuff, and he returns for discussion of the results of that. Physical exam demonstrates that he can abduct to approximately 170 degrees and forward flex to a similar amount, but he does have pain through the mid arc of that range of motion. Provocative signs are markedly positive for impingement and his strength remains 4/5 to resisted external rotation and 4/5 to resisted abduction. He also has some pain with Yergason and Speed's test. MRI was reviewed and does show a large to massive retracted full thickness rotator cuff tear involving the supraspinatus and infraspinatus. The tendon at one level is retracted to the level of the glenoid. There was only grade 2 atrophy of the supraspinatus and infraspinatus suggesting this may be more of an acute tear rather than acute on chronic. 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 ASSESSMENT: Massive rotator cuff tear, right shoulder. Discussion was held with Mr. Cat about the options and because I think this has a significant component, which is acute, that it was reasonable to proceed with surgical repair. He agrees and would like to schedule himself in the next few weeks for an arthroscopic evaluation of the shoulder and possible open rotator cuff repair, acromioplasty, and biceps tenotomy. The potential risks and complications of surgery including infection, blood clots, nerve or blood injury, failure to relieve his pain, as well as failure of the repair at any point during his postoperative recovery. He consents to proceed. documented in this encounter Plan of Treatment Not on file documented as of this encounter Visit Diagnoses Diagnosis Complete rotator cuff tear of left shoulder Complete rupture of rotator cuff Disorder of rotator cuff, unspecified laterality documented in this encounter Care Teams Appian Developer Relationship Specialty Start Date End Date Diana Weaver MD [address] [place] [address] PCP - General 05/22/10 09/11/17 documented as of this encounter
--- OUTSIDE RECORDS SUMMARY | 2024-03-12 00:11 | XMS_ITS | Encounter Summary ---
Author Organization [facility] [place] [address] Care Team Providers Care Stull Installer Name Role Phone Diana Weaver MD Primary Care Provider [phone] Encounter Details Date Type Department Care Team (Late st Contact Info) Description 02/13/2016 Orders [place] [address] Zuleika Mathur Social History Tobacco Use Types Packs/Day Years [...] on filedocumented in this encounter Care Teams Stull Installer Relationship Specialty Start Date End Date Diana Weaver MD [address] [place] [address] PCP - General 05/22/10 09/11/17 documented as of this encounter
--- OUTSIDE RECORDS SUMMARY | 2024-03-12 00:11 | XMS_ITS | Encounter Summary ---
Author Organization [facility] [place] [address] Care Team Providers Care Beer Coil Cleaner Name Role Phone Diana Weaver MD Primary Care Provider [phone] Encounter Details Date Type Department Care Team (Late st Contact Info) Description 01/06/2016 [place] [address] Nicole Zaragoza MD [facility] [place] [address] Social History Tobacco Use Types Packs/Day Years [...] encounter Miscellaneous Notes * Telephone Encounter - Nicole Zaragoza MD - 01/06/2016 6:[address] Landers Calling from [place]. 70 yo, male patient with PMH of Asbestosis, Dilated cardiomyopathy and TIA who presented to ED after 10 minutes of Rt side facial numbness and difficulty speaking. His prior TIA presented with similar symptoms characterized by Dysphasia and Rt arm weakness that resolved in 2-3 hours. He is now backto his baseline, denied confusion, or abnormal movements of the extremities. NIHSS is 0 He had a TTE on with the question of possible patent foramen ovale, EF 65%, no significant valve disease. He is currently on ASA 81 mg daily and they were asking if he can be switch to Plavix with the concern of this been TIA. His symptoms can be secondary to TIA vs seizures. I think it will be reasonable to switch him to Plavix, start him on Lipitor 20 mg daily, keep him under observation for 24 hours and he will need a follow up with neurology. He might need a repeated TTE with bubble study and a CTA for rule out of carotid stenosis as well as an EEG for rule out of seizures. documented in this encounter Plan of Treatment Not on file documented as of this encounter Visit Diagnoses Not on filedocumented in this encounter Care Teams Beer Coil Cleaner Relationship Specialty Start Date End Date Diana Weaver MD [address] [place] [address] PCP - General 05/22/10 09/11/17 documented as of this encounter
--- OUTSIDE RECORDS SUMMARY | 2024-03-12 00:11 | XMS_ITS | Encounter Summary ---
[place] [address] Care Team Providers Care Mortgage Loan Originator Name Role Phone Diana Weaver MD Primary Care Provider [phone] Encounter Details Date Type Department Care Team (Latest Contact Info) Description 08/16/2013 12:47 PM EST - 08/16/2013 11:15 PM EST Hospital Encounter [place] [address] Renzo Dykes MD [address] [place] [address] [place] [address] Inguinal hernia recurrent bilateral Discharge Disposition: Home Social History Tobacco [...] Sign Reading Time Taken Comments Blood Pressure 118/60 08/16/2013 5:58 PM EST Pulse 64 08/16/2013 5:58 PM EST Temperature 36.6 ??C (97.9 ??F) 08/16/2013 5:00 PM ES T Respiratory Rate 14 08/16/2013 5:58 PM EST Oxygen Saturation 100% 08/16/2013 5:58 PM EST Inhaled Oxygen Concentration - - [...] 101.3 F. The number for questions is [phone] before 5 PM weekdays and [phone] after 5 PM and weekends. Pain Medication: [...] will be mailed to you. Please call [phone](clinic number for appointments) to confirm date and [...] Dykes MD - 08/16/2013 5:29 PM EST [facility] [place] Operative Note Patient Name: Alvin Cat : [id number] MR#: [id number] Case Date: 08/16/2013 Surgeon: Surgeon(s) and Role: [...] rectus sheath was closed with 0 PDS [id number] suture and the skin was closed with [...] RDR/RSLT documented in this encounter Visit Diagnoses Diagnosis Inguinal hernia recurrent bilateral Inguinal hernia without mention of obstruction or gangrene, recurrent bilateral documented in this encounter Administered Medications Inactive Administered Medications - up to 3 most recent administrations Medication Order MAR Action Action Date Dose Rate Site fentaNYL 50mcg/mL injection 25-50 mcg, Intravenous, [...] 1400 (New Bag - Prov ider: Margarita Bahena RN)1519 (Anesthesia Volume Adjustment - Provider: Precious [...] 180 (Given - Provid er: Matt Ron RN)1810 (Given - Provider: Matt Ron RN)1816 (Given - Provider: Matt Ron RN)183 (Given - Provider: Matt Ron RN) oxyCODONE-acetaminophen (PERCOCET) 5-325 mg per tablet 1-2 tablet (CANCELED) 1-2 tablet, Oral, EVERY 4 HOURS PRN, Starting on 08/16/13 at 1725, Until Tu08/17/13 at 0116, Pain, Maximum dose of acetaminophen is 4000 mg from all sources in 24 hours., Routine 1747 (Given - Provid er: Matt Ron RN)1837 (Given - Provider: Matt Ron RN)1900 (Given - Provider: Matt Ron RN)2245 (Given - Provider: Matt Ron RN) documented in this encounter Care Teams Mortgage Loan Originator Relationship Specialty Start Date End Date Diana Weaver MD [address] [place] [address] PCP - General 05/22/10 09/11/17 documented as of this encounter
--- OUTSIDE RECORDS SUMMARY | 2024-03-12 00:11 | XMS_ITS | Encounter Summary ---
Author Organization [facility] [place] [address] Care Team Providers Care Photographic Colorist Name Role Phone Diana Weaver MD Primary Care Provider [phone] Encounter Details Date Type Department Care Team (Late st Contact Info) Description 12/19/2015 9:15 AM EDT Office Visit Physical Therapy at [facility] [address] [place] [address] Evangelist Be, CONSTRUCTION EQUIPMENT OPERATOR [facility] & [place] [address] Acute pain of both shoulders Social History [...] as of this encounter Progress Notes * Evangelist Be, CONSTRUCTION EQUIPMENT OPERATOR - 12/19/2015 9:13 AM EDT PHYSICAL THERAPY PROGRESS NOTE Date of Exam/First Treatment: 12/19/2015 Date of onset: 5 weeks Referring Provider: Diana Weaver Total Treatment time: 60 minutes Total Timed Code Treatment: 45 minutes Primary: Payor: MEDICARE / Plan: MEDICARE PART A & B / Product Type: *No Product type* / Medicare Certification period: 12/19/2015 - 01/23/17 Medicare Therapy G-Code Date Tracking: (Update G-Code status every 10 visits or when code changes) 1 2 3 4 5 6 7 8 9 10 11/23 12/10 12/18 Diagnosis: 1. Acute pain of both shoulders S: Patient reports he was feeling great after last session. Hat flew off in wind, automatically reached for it causing significant increase in (R) shld pain. Has improved a little since. Had stopped medication 3 weeks ago, now back on it due to recent set back. O: Therex 1 unit, Manual 2 units: reviewed therex, cervical rotation and chin tuck changed to supine for comfort completed and added to HEP: ER and rows working on scap stab STM (B) Shld musculature and posterior glides (B) Shld gentle cervical STM cervical musculature patient question use of traction, discussed reason for no traction which was documented in last treatment note A: In supine sx down (L) arm, when rotated head to the (R) in same position sx down (L) arm significantly reduced/eliminated. P: Continue per PT POC and goals. [id number] [...] of AROM in order maximize function Therapy Halfway Goals (8 weeks) Patient to... 1. improve [...] Body Mechanics, Posture and Home Exercise Program EVANGELIST BE PTA documented in this encounter Plan of Treatment Not on file documented as of this encounter Visit Diagnoses Diagnosis Acute pain of both shoulders documented in this encounter Care Teams Photographic Colorist Relationship Specialty Start Date End Date Diana Weaver MD [address] [place] [address] PCP - General 05/22/10 09/11/17 documented as of this encounter
--- OUTSIDE RECORDS SUMMARY | 2024-03-12 00:12 | XMS_ITS | Encounter Summary ---
Author Organization [facility] Address [facility] [place] [address] Care Team Providers Care Criminalist Name Role Phone Diana Weaver MD Primary Care Provider Reason for Visit * Reason Comments Genital Warts Encounter Details Date Type Department Care Team (Late st Contact Info) Description 01/10/2011 1:00 PM EDT [place] [address] Jesse Hu III, MD [facility] [place] [address] Pain (Primary Dx); Condyloma; Erectile dysfunction Discharge Disposition: Home Social History Tobacco Use Types Packs/Day Years Used Date Smoking Tobacco: Former Cigarettes Q uit: 03/13/1981 Alcohol Use Standard Drinks/Week Comments Not Asked 0 (1 standard drink = 0.6 oz pur e alcohol) Sex and Gender Information Value Date Recorded Sex Assigned at Not on file Gender Identity Not on file Sexual Orientation Not on file documented as of this encounter Last Filed Vital Signs Vital Sign Reading Time Taken Comments Blood Pressure 149/84 01/10/2011 12:59 PM EDT Pulse 74 01/10/2011 12:59 PM EDT Temperature - - Respiratory Rate - - Oxygen Saturation - - Inhaled Oxygen Concentration - - Weight 97.5 kg (215 lb) 01/10/2011 12:59 PM EDT Height 177.8 cm (5' 10) 01/10/2011 12:59 PM EDT Body Mass Index 30.85 01/10/2011 12:59 PM EDT documented in this encounter Patient Instructions * Patient Instructions* Nereyda Nguyen LPN - 01/10/2011 1:36 PM EDT Continue with medication reorder sent to Crystal schulz documented in this encounter Progress Notes * Jesse Hu III, MD - 01/10/2011 1:55 PM EDT Mr. Alvin Cat is a 65-year-old gentleman I am seeing at his own request. He is here for an evaluation regarding penile warts, erectile dysfunction, and BPH. This gentleman has been treated with Dr. Julio C Young at [facility]. Dr. Young has treated him for a variety of problems including some erectile and ejaculatory problems, longstanding lower urinary tract symptoms, and most recently venereal warts. He has had two courses of podophyllin based treatment for initially a single lesion. Why he got an initially good response to this treatment after a period of a few weeks he developed recurrent lesions on the dorsal aspect of the penile shaft behind the pinto. He also has a larger lesion, which has developed on the ventral aspect of the penis on the right side below the coronal sulcus. He has used to Condylox for one to two weeks at a time. He also states that the original lesion was frozen by his primary care physician. He has never had a biopsy. He is in a monogamous relationship with a 62-year-old woman who had an atypical Pap smear a month or two ago. He and she have been refraining from sexual activity as he is unable to achieve erections with the use of condom catheter. His lower urinary tract symptoms are vexing, but stable. He did have a vasectomy a number of years ago when he was in a relationship with a younger woman. He states that since then he has had some difficulty with reduced semen volume and perineal pressure with ejaculation. Physical Examination: In general he is a well-developed, well-nourished, articulate gentleman in no acute distress. Examination of the abdomen: It is soft and nontender. There are no masses. Examination of the genitalia: The penis is a normal male phallus. The meatus is in the orthotopic location. There are three small flat excrescences on the dorsal aspect of the penis behind the shaft. There is a larger, approximately 6 to 7 mm flat excrescence on the ventral aspect of the shaft below the pinto. Finally there is a small lesion at the base of the dorsum of the penis which has been there for many years. Examination of the scrotum revealed no lesions. Examination of the prostatae reveals it to be approximately 25 g in size. It is soft, symmetric, and non-nodular. Assessment: This is a 65-year-old gentleman with a number of genitourinary issues. As he is had reasonable, but transient response to podophyllin, I have recommended that he take it again at least for three to four weeks continuously as directed. Should these lesions continue to proliferate than biopsy with laser coagulation may be the next best treatment. We have briefly discussed the use of Aldara for this problem. I have reassured him that the likelihood of developing cervical cancer in his partner is relatively low. All questions have been answered to his satisfaction. documented in this encounter Plan of Treatment Not on file documented as of this encounter Visit Diagnoses Diagnosis Pain- Primary Generalized pain Condyloma Condyloma acuminatum Erectile dysfunction Impotence of organic origin documented in this encounter Care Teams Criminalist Relationship Specialty Start Date End Date Diana Weaver MD [address] [place] [address] PCP - General 05/22/10 09/11/17 documented as of this encounter
--- OUTSIDE RECORDS SUMMARY | 2024-03-12 00:12 | XMS_ITS | Encounter Summary ---
Author Organization [facility] Address [facility] [place] [address] Care Team Providers Care Creative Developer Name Role Phone Diana Weaver MD Primary Care Provider [phone] Encounter Details Date Type Department Care Team (Late st Contact Info) Description 05/16/2011 7:50 AM EST - 05/16/2011 11:59 PM EST Hospital Encounter XRay at [address] [place] [address] Shoulder pain Social History Tobacco Use Types Packs/Day [...] needed. 25 mg - 50 mg prn acetaminophen (TYLENOL) 500 mg tablet Take 1,000 mg by mouth 2 times daily. 01/10/2011 06/18/2017 ibuprofen (ADVIL;MOTRIN) 200 mg tablet Take 600 mg by mouth 2 times daily as needed. 01/10/2011 06/01/2015 podofilox (CONDYLOX) 0.5 % external solution Apply topically 2 times daily. 2 times a day for 3 days. Then off for 4 days. For 4 weeks. 12/25/2011 amitriptyline (ELAVIL) 25 mg tablet Take 12.5 mg by mouth nightly as needed. 01/15/2012 clindamycin (CLEOCIN) 300 mg capsuleIndications:Art hroplasty of the knee Take 2 capsules by mouth for 1 dose. Take 600 mg one hour prior to dental procedures 2 capsule 6 11/23/2010 06/26/2011 MULTIVITAMIN ORAL 08/22/2010 12/25/2011 GLUCOSAMINE HCL/CHONDRO NORTH A (GLUCOSAMINE-CHONDROIT IN ORAL) 08/22/2010 01/15/2012 documented as of this encounter Plan of Treatment Not on file documented as of this encounter Procedures Procedure Name Priority Date/Time Associated Diagnosis Comments XR SHOULDERS MIN 2 VIEWS BILAT Routine 05/16/2011 8:38 AM EST Pain in joint, shoulder region documented in this encounter Results * XR SHOULDERS BILATERAL (05/16/2011 8:38 AM EST) Anatomical Region Laterality Modality Shoulder Bilateral Radiographic Marsha ging 05/16/2011 8:38 AM EST Narrative 05/16/2011 2:11 PM EST BILATERAL SHOULDERS, 05/16/11: ?? INDICATION: Bilateral shoulder pain. ?? FINDINGS: There is no evidence of fracture or dislocation in either shoulder. ?? In the left shoulder, there is mild bony degenerative change with bony overgrowth at the AC joint. ??In the right shoulder, these changes are more pronounced. ??The distal clavicle has subchondral cyst formation. ??The visualized portions of the lung appear clear. ?? Procedure Note Rachael Maguire MD - 05/16/2011 BILATERAL SHOULDERS, 05/16/11: INDICATION: Bilateral shoulder pain. FINDINGS: There is no evidence of fracture or dislocation in eithershoulder. In the left shoulder, there is mild bony degenerative change with bony overgrowth at the AC joint. In the right shoulder, these changes are more pronounced. The distal clavicle has subchondral cyst formation. The visualized portions of the lung appear clear. Oliver Carter MD IMG DX ORDERABLES documented in this encounter Visit Diagnoses Diagnosis Shoulder pain Pain in joint, shoulder region documented in this encounter Care Teams Creative Developer Relationship Specialty Start Date End Date Diana Weaver MD [address] [place] [address] PCP - General 05/22/10 09/11/17 documented as of this encounter
--- OUTSIDE RECORDS SUMMARY | 2024-03-12 00:12 | XMS_ITS | Encounter Summary ---
Author Organization [facility] [place] [address] Care Team Providers Care Lifts And Cranes Inspector Name Role Phone Diana Weaver MD Primary Care Provider [phone] Reason for Visit * Reason Comments Follow Up Surgery Bilat TKA 05/08/10 Encounter Details Date Type Department Care Team (Late st Contact Info) Description 05/16/2011 9:50 AM EST Office Visit [place] [address] Ed Post MD [facility] [place] [address] S/P TKR (total knee replacement) using cement (Primary Dx); Knee joint replacement by other means; 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 Post, Patsy Trammell, MSN, RN. ONC is documenting in this note as a scribe: Patient Name: Alvin Cat : 1945 MR#: [id number] Case Date: 05/08/10 Surgeon: Joanne Post Procedure: bilateral total knee replacement HPI: Alvin Cat is a very pleasant 65 y.o. year-old male who presents for a oneYear follow-up of the above procedure. The patient has been doing very well and his pain is markedly improved over preoperative status. No fevers, chills, nausea, vomiting, or symptoms of infection. Alvin is ambulating independently without assistive device. He states he continues to make nice gains, and is appr eciating his improved performance. His biggest complaint is his shoulder pain which he has seen for this am and had steroid injection left shoulder. Physical Exam: Well-appearing male in no acute distress. A&O x 3 and answers all questions appropriately. No fevers, chills, nausea, vomiting, or symptoms of infection. The knee incisions are well healed, with no signs of infection , good patella mobility. Lateral tightness on right (IT band). Calves soft, non tender. Knee Exam: Left Gait Abnormality: Normal Knee ROM: Extension:0 Flexion: 125 Alignment: 0-4 degrees Neutral Stability: A/P Translation <5mm Varus <5mm Valgus <5mm Extension La degrees or less Patella Tracking: Normal Pulses Palpable: Left PT:Yes Left DP:Yes Motor/Sensory: Left Distal Motor: Normal Distal Sensory: Normal and Post Op Right Knee Exam: Gait Abnormality: Normal Knee ROM: Extension:0 Flexion: 125 Alignment: 0-4 degrees Neutral Stability: A/P Translation <5mm. Varus <5mm Valgus <5mm Extension La degrees or less Patella Tracking: Normal Pulses Palpable: Right PT: Yes Right DP:Yes Motor/Sensory: Distal Motor: Normal Distal Sensory: Normal X-RAYS: X-rays show well-placed bilateral TKA prostheses with no evidence of fracture or loosening. ASSESSMENT/PLAN: Doing well status post bilateral total knee replacements done 05/08/10/ Plan: We discussed usual precautions at this point. He to continue to work on strengthening by getting out and walking. We'll see him back in approximately 2 years for repeat examination. X-rays willbe needed at that time. He understands to continue antibiotic prophylaxis prior to any procedures for the lifetime of the joint replacement. We also discussed maintaining good foot care and giving prompt attention to any source of infection throughout the body including foot ulcers and urinary tract infections.He is to call if any questions or concerns. I have personally evaluated the patient and agree with the above note as scribed by Patsy Trammell, MSN, RN. 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
--- OUTSIDE RECORDS SUMMARY | 2024-03-12 00:12 | XMS_ITS | Encounter Summary ---
[place] [address] Care Team Providers Care Utility Worker Film Processing Name Role Phone Diana Weaver MD Primary Care Provider [phone] Encounter Details Date Type Department Care Team (Latest Contact Info) Description 01/02/2012 12:26 PM EDT - 01/02/2012 11:59 PM EDT Hospital Encounter Non-Invasive [place] [id number] CARDIO, ECHO SIXTY MIN APPT None Yuniel Whelan MD [facility] [place] [address] Pericardial effusion Discharge Disposition: Home Social History Tobacco Use [...] needed. 25 mg - 50 mg prn loratadine (CLARITIN) 10 mg tablet Take 10 mg by mouth daily. 04/22/2013 acetaminophen (TYLENOL) 500 mg tablet Take 1,000 mg by mouth 2 times daily. 01/10/2011 06/18/2017 ibuprofen (ADVIL;MOTRIN) 200 mg tablet Take 600 mg by mouth 2 times daily as needed. 01/10/2011 06/01/2015 amitriptyline (ELAVIL) 25 mg tablet Take 12.5 mg by mouth nightly as needed. 01/15/2012 GLUCOSAMINE HCL/CHONDRO NORTH A (GLUCOSAMINE-CHONDROITIN ORAL) 08/22/2010 01/15/2012 documented as of this encounter Plan of Treatment Not on file documented as of this encounter Procedures Procedure Name Priority Date/Time Associated Diagnosis Comments ECHOCARDIOGRAM TRANSTHORACIC Routine 01/02/2012 4:31 PM EDT Pericardial effusion documented in this encounter Results * Echo Transthoracic (Complete) (01/02/2012 4:31 PM EDT) EF 60 HEARTLAB SYSTEM Anatomical Region Laterality Modality Other 01/02/2012 Narrative 01/02/2012 4:43 PM EDT Procedure: ? Transthoracic Echocardiogram Patient: ? PODHURST ALVIN L ?(Age): 1945(66) Med Rec#: ?[id number] ? Sex: ?M ? Site Loc: ?[facility] [place] ? Ht / Wt: ??180(cm)/94(kg) Pt. Loc: ? Echo Lab ? BSA: ?2.17 Study Date: ?01/02/2012 ? Pt. Type: Outpatient Tape: ? Referring: Yuniel Whelan MD Referring: RIAN CARDOZO APRN, [place] Case Repairer: Lara Valerio Diagnosis:CPT Code(s): ??Color Doppler (75182), ??Echo Full (69178), Spectral Doppler (92445), Indication(s): ??Pericardial effusion, F/U Rhythm: Sinus HR ?BP ?110/84 ?? SUMMARY: 1. Normal biventricular size and systolic function, LVEF60%. No wall motion abnormalities. Normal LV wall thickness. Doppler assessment is consistent with normal LV filling pressure. There is a mild septal bounce present without other findings to suggest pericardial constriction. 2. Mild LA enlargement. 3. No hemodynamically significant valve disease. 4. There is no pericardial effusion present. 5. Other findings as noted below. FINDINGS: Left Ventricle ?There is normal global left ventricular systolic function. ??Ejection fraction is estimated to be 60%. ?There are no left ventricular segmental wall motion abnormalities. ?Doppler assessment is consistent with normal left sided filling pressure. Left Atrium ?The left atrium is mildly dilated. Right Ventricle ?Right ventricular chamber size, wall thickness, and systolic function are within normal limits. ?No pulmonary hypertension is noted. ?The estimated pulmonary artery systolic pressure is 29 mmHg. ?The estimated right atrial pressure is 8 mmHg. Right Atrium ?The right atrium is normal in size. Aortic Valve ?The aortic valve is trileaflet. The leaflets are thin with normal excursion. There is no aortic stenosis or regurgitation present. Mitral Valve ?The mitral valve appears normal in structure and function. ?There is trace mitral regurgitation present. Tricuspid Valve ?The tricuspid valve appears normal in structure and function. ?There is trace tricuspid regurgitation present. Pulmonic Valve ?The pulmonic valve appears normal in structure and function. ?There is trace pulmonic regurgitation present. Pericardium ?There is no pericardial effusion. Aorta ?The aortic root is normal in size. ?The ascending aorta is normal in size. Pulmonary Artery ?The main pulmonary artery appears normal. Venous ?The inferior vena cava appears dilated. ?There is a greater than 50% respiratory change in the inferior vena cava dimension. Misc ?Two-dimensional echo, spectral Doppler and color Doppler performed. Wall Motion: Segment Name ?Rest ? Base-Anteroseptal ?? Normal ? Base-Anterior ? Normal ? Base-Anterolateral ??Normal ? Base-Posterolateral Normal ? Base-Inferior ? Normal ? Base-Inferoseptal ?? Normal ? Mid-Anteroseptal ?Normal ? Mid-Anterior ?Normal ? Mid-Anterolateral ?? Normal ? Mid-Posterolateral ??Normal ? Mid-Inferior ?Normal ? Mid-Inferoseptal ?Normal ? Sandy-Septal ? Normal ? Sandy-Anterior ? Normal ? Sandy-Lateral ?Normal ? Sandy-Inferior ? Normal ? Sandy-Tip ?Normal ? Chambers ?Value ?Units (Range) ? IVSd 2D ? 0.8 ?cm ? LVIDd 2D ?5.2 ?cm ? PWd 2D ?0.8 ?cm ? LVIDs 2D ?3 ?cm ? LVFS 2D ? 42 ? % ? LA area ? 22 ? cm2 (<21) ? RA area ? 16 ? cm2 (<18) ? Ao root ? 3.3 ?cm (2.1 to 3.6) ? Asc Ao ?3.3 ?cm (2 to 3.5) ? Mitral Valve ?Value ?Units (Range) ? E peak ?0.4 ?m/sec ? E/A ratio ? 0.8 ?ratio ? MVDT ?215 ?msec ? E1 ?0.08 ? m/sec ? E/E1 ?5 ?ratio ? Tricuspid/Pulmonic Valves ?Value ?Units (Range) ? TR peak ree ? 2.3 ?m/sec ? RAP ? 8 ?mmHg ? RVSP/PASP ? 29 ? mmHg ? This report has been electronically signed by: Carl Clark MD ? 01/02/2012 16:42:52 Images reviewed and interpretation verified [facility] Cardiac Ultrasound Laboratory Procedure Note Carl Gomez MD - 01/02/2012 Procedure: Transthoracic Echocardiogram Patient: LORIN East DOB(Age): 1945(66) Med Rec#: [id number] Sex: M Site Loc: [facility] [place] Ht / Wt: 180(cm)/94(kg) Pt. Loc: Echo Lab BSA: 2.17 Study Date: 01/02/2012 Pt. Type: Outpatient Tape: Referring: Yuniel Whelan MD Referring: RIAN CARDOZO APRN, [place] Case Repairer: Lara Valerio Diagnosis:CPT Code(s): Color Doppler (04711), Echo Full (58214), Spectral Doppler (33610), Indication(s): Pericardial effusion, F/U Rhythm: Sinus HR BP 110/84 SUMMARY: 1. Normal biventricular size and systolic function, LVEF60%. No wall motion abnormalities. Normal LV wall thickness. Doppler assessment is consistent with normal LV filling pressure. There is a mild septal bounce present without other findings to suggest pericardial constriction. 2. Mild LA enlargement. 3. No hemodynamically significant valve disease. 4. There is no pericardial effusion present. 5. Other findings as noted below. FINDINGS: Left Ventricle There is normal global left ventricular systolic function. Ejection fraction is estimated to be 60%. There are no left ventricular segmental wall motion abnormalities. Doppler assessment is consistent with normal left sided filling pressure. Left Atrium The left atrium is mildly dilated. Right Ventricle Right ventricular chamber size, wall thickness, and systolic function are within normal limits. No pulmonary hypertension is noted. The estimated pulmonary artery systolic pressure is 29 mmHg. The estimated right atrial pressure is 8 mmHg. Right Atrium The right atrium is normal in size. Aortic Valve The aortic valve is trileaflet. The leaflets are thin with normal excursion. There is no aortic stenosis or regurgitation present. Mitral Valve The mitral valve appears normal in structure and function. There is trace mitral regurgitation present. Tricuspid Valve The tricuspid valve appears normal in structure and function. There is trace tricuspid regurgitation present. Pulmonic Valve The pulmonic valve appears normal in structure and function. There is trace pulmonic regurgitation present. Pericardium There is no pericardial effusion. Aorta The aortic root is normal in size. The ascending aorta is normal in size. Pulmonary Artery The main pulmonary artery appears normal. Venous The inferior vena cava appears dilated. There is a greater than 50% respiratory change in the inferior vena cava dimension[place] [facility] [place], spectral Doppler and color Doppler performed. Wall Motion: Segment Name Rest Base-Anteroseptal Normal Base-Anterior Normal Base-Anterolateral Normal Base-Posterolateral Normal Base-Inferior Normal Base-Inferoseptal Normal Mid-Anteroseptal Normal Mid-Anterior Normal Mid-Anterolateral Normal Mid-Posterolateral Normal Mid-Inferior Normal Mid-Inferoseptal Normal Sandy-Septal Normal Sandy-Anterior Normal Sandy-Lateral Normal Sandy-Inferior Normal Sandy-Tip Normal Chambers Value Units (Range) IVSd 2D 0.8 cm LVIDd 2D 5.2 cm PWd 2D 0.8 cm LVIDs 2D 3 cm LVFS 2D 42 % LA area 22 cm2 (<21) RA area 16 cm2 (<18) Ao root 3.3 cm (2.1 to 3.6) Asc Ao 3.3 cm (2 to 3.5) Mitral Valve Value Units (Range) E peak 0.4 m/sec E/A ratio 0.8 ratio MVDT 215 msec E1 0.08 m/sec E/E1 5 ratio Tricuspid/Pulmonic Valves Value Units (Range) TR peak ree 2.3 m/sec RAP 8 mmHg RVSP/PASP 29 mmHg This report has been electronically signed by: Carl Clark MD 01/02/2012 16:42:52 Images reviewed and interpretation verified [facility] Cardiac Ultrasound Laboratory Yuniel Whelan MD ECHO ORDERABLES documented in this encounter Visit Diagnoses Diagnosis Pericardial effusion Unspecified disease of pericardium documented in this encounter Care Teams Utility Worker Film Processing Relationship Specialty Start Date End Date Diana Weaver MD [address] [place] [address] PCP - General 05/22/10 09/11/17 documented as of this encounter
--- OUTSIDE RECORDS SUMMARY | 2024-03-12 00:12 | XMS_ITS | Encounter Summary ---
[place] [address] Care Team Providers Care Pc Analyst Name Role Phone Diana Weaver MD Primary Care Provider [phone] Reason for Visit * Reason Onset Date Comments Results 12/31/2011 Encounter Details Date Type Department Care Team (Late st Contact Info) Description 12/31/2011 Telephone Cardiology at [address] [phone] Ene Bellamy, RN Results Social History Tobacco Use Types Packs/Day Years [...] encounter Miscellaneous Notes * Telephone Encounter - Ene Bellamy RN - 12/31/2011 3:48 PM EDT Patient is calling to see if Dr. Hernández can give him results to his MRI he had done last week and lab results on fluid that was taken off his heart. He is coming in for an ECHo on . Informed patient that this note will be forwarded to Dr. Hernández to have her contact patient with requested results. documented in this encounter Plan of Treatment Not on file documented as of this encounter Visit Diagnoses Not on filedocumented in this encounter Care Teams Pc Analyst Relationship Specialty Start Date End Date Diana Weaver MD [address] [place] [address] PCP - General 05/22/10 09/11/17 documented as of this encounter
--- OUTSIDE RECORDS SUMMARY | 2024-03-12 00:12 | XMS_ITS | Encounter Summary ---
Author Organization [facility] [place] [address] Care Team Providers Care Deburrer Machine Name Role Phone Diana Booker MD Primary Care Provider [phone] Encounter Details Date Type Department Care Team (Late st Contact Info) Description 12/25/2011 5:00 PM EDT - 12/25/2011 6:04 PM EDT Surgery [place] [address] Brant Vang MD [facility] [place] [address] CARDIAC CATHETERIZATION Social History Tobacco Use Types Packs/Day Years [...] Sign Reading Time Taken Comments Blood Pressure 111/79 12/27/2011 11:20 AM EDT Pulse 98 12/27/2011 11:20 AM EDT Temperature 36.9 ??C (98.4 ??F) 12/27/2011 1 1:20 AM EDT Respiratory Rate 16 12/27/2011 11:2 0 AM EDT Oxygen Saturation 98% 12/27/2011 11: 20 AM EDT Inhaled Oxygen Concentration - - Weight 93.8 kg (206 lb 12.7 oz) 12/27/2011 5:00 AM EDT Height 180.3 cm (5' 11) 12/25/2011 3:16 PM EDT Body Mass Index 28.84 12/25/2011 3:16 PM EDT documented in this encounter Discharge Instructions * Patient Instructions* Donya Medrano MD - 12/27/2011 10:55 AM EDT You have been hospitalized because there was an accumulation of fluid around your heart, which madeit unable to pump your blood properly. This is known as tamponade. This is the reason why your legswere swelling and you were experiencing shortness of breath. It is not clear why fluid accumulated around the heart. We drained this fluid and sent it to the lab for analysis. We are waiting for the complete set of test results. We are also waiting for completed interpretation of your imaging. PLEASE RETURN FOR AN ECHOCARDIOGRAM on January 01, 12:30 pm at [facility], location 4A. Please keep a log of your heart rate and blood pressure at home every day. You had high blood pressure and a rapid heart rate during this admission, and this log will help your doctors to understand the reason for this. Please be sure to follow up with Dr. Kurt Hernández at [facility] on January 14 at 2:10 pm, location [facility]. This is important to continue the work-up for the cause of your tamponade. You should also follow up with your primary care doctor, Dr. DIANA BOOKER, on January 01, at12:50 pm. Please return to the hospital if you develop shortness of breath as you did before, and if you develop chest pain, chest pressure, nausea/vomiting or fever. documented in this encounter Medications at Time [...] 08/22/2010 01/15/2012 documented as of this encounter Progress Notes * Nic Tran II - 12/27/2011 2:45 PM EDT S2 Cardiology Staff Discharge Day Note Patient Name: Alvin Cat Patient Admit Date: 12/25/2011 The patient was interviewed, examined and discussed in detail housestaff on rounds. Patient Active Problem List Diagnoses Code ??? Osteoarthritis 715.90AN ??? CIS - asbestos exposure 53473 ??? CIS - Bilateral knee osteoarthritis 65716 ??? CIS - Bilateral knee pain ??? BPH (benign prostatic hyperplasia) 600.90AJ ??? Erectile dysfunction 607.84D ??? CIS - rotator cuff tears ??? Condyloma 078.11E ? ? Rotator cuff disorder bilateral (L>R) 726.10L ??? 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 Pericardial effusion 423.9S ??? Dilated cardiomyopathy 425.4AH Subjective: No complaints. Expresses readiness for discharge. Filed Vitals: 12/27/11 1120 BP: 111/79 Pulse: 98 Temp: 36.9 ??C (98.4 ??F) Resp: 16 Exam: No change Labs Lab Results Component Value Date WBC 6.9 12/27/2011 HGB 14.9 12/27/2011 HCT 43.0 12/27/2011 MCV 87.9 12/27/2011 Lab Results Component Value Date Sodium 138 12/27/2011 Potassium 4.0 12/27/2011 Chloride 104 12/27/2011 CO2 25 12/27/2011 BUN 13 12/27/2011 Creatinine 1.07 12/27/2011 Glucose Lvl 105 12/27/2011 Intake/Output Summary (Last 24 hours) at 12/27/11 1445 Last data filed at 12/26/11 2227 Gross per 24 hour Intake 2233.33 ml Output 2150 ml Net 83.33 ml Patient Weight in the past 168 hrs: Weight 12/27/11 0500 93.8 kg (206 lb 12.7 oz) 12/26/11 0617 92.8 kg (204 lb 9.4 oz) 12/25/11 1447 93.7 kg (206 lb 9.1 oz) Echo 12-26-11: 1. There is a small circumferential pericardial effusion. There is no echo evidence of pericardial tamponade. 2. There is normal global left ventricular systolic function. Ejection fraction is estimated to be 65%. There are no left ventricular segmental wall motion abnormalities. 3. Right ventricular global systolic function is probably normal. Evaluation/Plan: Still has relatively fast HR for unclear reason. Whole body CT negative. Cytology of p. Fluid pending, Cardiac MR pending. P. Effusion has been stable. Anxious for discharge. Follow-up with Dr. Hernández. In Cardiology Clinic. Nic Tran MD * Raphael Del Valle RN - 12/27/2011 2:10 PM EDT Telemetry, saline lock removed. AVS reviewed and provided, verbalizes understanding. Discharged to home with friend. * Tomas Marcos RN - 12/27/2011 11:45 AM EDT Office of Care Management (OCM) / Clinical Feeder/Folder (CRC)/ Initial Assessment Discussed patient with Provider Team and in multidisciplinary discharge-planning rounds. Reviewed record and interviewed patient. Introduced/reviewed CRC role and services accepted. REASON for HOSPITALIZATION: Pericardial effusion PREVIOUS FUNCTIONAL STATUS: Independent at home. CURRENT FUNCTIONAL STATUS:Walking around unit independently. SOCIAL / FAMILY SUPPORTS Lives alone. ADVANCE DIRECTIVES: Copy in [facility] INSURANCE COVERAGE / FINANCIAL ISSUES: Medicare Assigned. No part D . Does have Rx insurance through [place] CURRENT HOME/COMMUNITY SERVICES/EQUIPMENT: DME:None Home Health Agency:None Other:S2 team has requested pt obtain home b/p cuff and log the next three weeks of b/p for follow up appointment here at [facility]. CRC advised pt he would need to privatly Pay for this and most commercial pharmacy do have them . Pt verbalized understanding and stated he would be able to afford this. TRAIN STATION SERVER REFERRAL: Notified AMY Quarles - Support/Financial/Medication Assistance; See TRAIN STATION SERVER notes for further needs. PRIMARY CARE PHYSICIAN: DIANA BOOKER MD [address] / [place] [address] POTENTIAL DISCHARGE NEEDS: None ID at this time TRANSPORTATION @ D/C: Friend will provide ride at time of d/c. PLAN: CRC will continue to monitor progress, follow for continuity of care and assist with discharge planning while hospitalized . * Wanda Rock RN - 12/26/2011 10:08 AM EDT Orthostatic vital signs are as follows: BP 133/91, HR 104 lying; BP 118/72, HR 117 sitting; BP 113/84, HR 117. Patient denies any lightheadedness, nausea or diaphoresis. Walked with patient around unit three times with no symptoms. * Solange Mei MD - 12/26/2011 6:41 AM EDT Inpatient Cardiology Progress Note Patient Name: Alvin Luquemernatal Service: Cardiology Responsible Attending: Dr. Mei Reason for continued hospitalization: Cardiac tamponade Active Problems: Active Hospital Problems Diagnoses ??? Pericardial effusion Priority: High ??? Dilated cardiomyopathy Priority: High Resolved Hospital Problems Diagnoses Date Resolved Interval History: -right heart cath and paracentesis, 750 cc's fluid removed, no drain in. LDH ratio 2500/271=9.2, total protein ratio=4.8/7.6=0.6 -HTN 150's/100's through night -presyncopal episode in am, no LOC but he was lightheaded, dizzy and with abdominal discomfort thathe was unable to describe further. BP fell to 90's briefly, then 100's. Neuro exam normal, pulm andcardiac normal, EKG normal, troponins pending. Gave 500 cc NS bolus, got stat CXR and stat TTE, which ruled out pneumothorax and accumulation of effusion. He improved after the bolus but remains tachycardic to 100's, BP 110'2-120'. Review of Systems: -lightheaded and abdominal discomfort x2 Telemetry: HR: sinus rhythm Meds: ??? bolus IV fluid Intravenous Once ??? sodium chloride 0.9 % 5 mL Intravenous Q12H ??? acetaminophen 1,000 mg Oral Once ??? DISCONTD: furosemide 20 mg Oral Daily Physical Exam: Vital Signs: Temp: [36.8 ??C (98.2 ??F)-37.1 ??C (98.8 ??F)] Heart Rate: [89-110] Resp: [14-23] BP: (150-170)/(80-104) SpO2: [94 %-100 %] Intake/Output Summary (Last 24 hours) at 12/26/11 0655 Last data filed at 12/26/11 0600 Gross per 24 hour Intake 600 ml Output 1600 ml Net -1000 ml Physical Exam General: no acute distress but fatigued in the am, walking around w/o distress in pm C-V: regular rhythm, normal rate, normal S1 and S2, no additional sounds Lungs: CTAB Abdomen: +BS, nontender, nondistended, soft Extremities: warm, pulses intact Neuro: speech and memory grossly intact, cranial nerves grossly intact, moving all extremities, 5/5strength in hands and feet bilaterally Lab Comments: Recent Labs Basename 12/26/11 0615 12/25/11 1607 ??? WBC 8.4 6.8 ??? HGB 15.5 14.4 ??? HCT 44.5 41.8 ??? PLATELET 326 305 Recent Labs Basename 12/25/11 1607 ??? INR 1.1 Recent Labs Basename 12/25/11 1607 ??? NA 140 ??? K 3.9 ??? CL 102 ??? CO2 27 ??? BUN 9* ??? CREATININE 0.99 No results found for this basename: AST:3,ALT:3,ALKPHOS:3,BILITOT:3,BILIDIR:3 in the last 168 hours Recent Labs Basename 12/25/11 1607 ??? CALCIUM 9.3 ??? MAGNESIUM -- ??? PHOS -- LFT's Lab Results Component Value Date Alk Phos 107 12/26/2011 AST 31 12/26/2011 Albumin 4.2 12/26/2011 Bili, Direct 0.2 12/26/2011 Total Bilirubin 0.6 12/26/2011 ALT 26 12/26/2011 Total Protein 7.6 12/26/2011 Pericardial fluid analysis 12/25/2011 18:15 Spec Type BF Pericardial fl Color BF Red [place] [address] HCT BF Type Pericardial fl HCT BF 5.5 Neutrophil BF 4 Lymphocyte BF 91 Macrophage BF [address] BF 200 Albumin, BF 3.3 Albumin BF Type Pericardial fl Chol, BF 97 Chol, BF Type Pericardial fl Glucose, BF 61 Gluc, BF Type Pericardial fl LDH BF >2500 LDH, BF Type Pericardial fl Misc BF Type Pericardial fl Protein, BF 4.8 Protein BF Type Pericardial fl Pertinent Radiographic/Diagnostic Results: TTE 12/25/2011 (before thoracentesis) 1. There is a moderate to large circumferential pericardial effusion. There are echo findings consistent with tamponade physiology. What is likely a fibrinous strand is noted in the pericardial space lateral to the left atrium. (Dr. Hernández informed of these findings.) 2. Left ventricular chamber size, wall thickness, global and segmental systolic function are within normal limits. Ejection fraction is estimated to be 65%. 3. Right ventricular chamber size, wall thickness, and systolic function are within normal limits. 4. There is no hemodynamically significant valve disease. 5. See remainder of report for additional findings. CXR 12/26/2011 Lungs are clear and well expanded. No pneumothorax or pleural effusion. Compared to prior exam of 2009, cardiac silhouette is likely similar in size, accounting for magnification and difference in technique. Pulmonary vascularity is within normal limits. TTE 12/26/2011 (after episode of lightheadedness this am) 1. There is a small circumferential pericardial effusion. There is no echo evidence of pericardial tamponade. 2. There is normal global left ventricular systolic function. Ejection fraction is estimated to be 65%. There are no left ventricular segmental wall motion abnormalities. 3. Right ventricular global systolic function is probably normal. ASSESSMENT: 66 y/o male presents with 2 weeks of shortness of breath on exertion, found to have large pericardial effusion, with echocardiographic and physical exam findings consistent with cardiac tamponade. Fluid analysis suggests exudative origin. Unclear etiology of effusion, but concern for mal ignancy; infection such as TB is also possible but less likely. His recent weight loss is also concerning for malignancy. He does have some findings of inflammatory arthritis, so connective tissue disorder possible, but minimal systemic symptoms. Pericarditis without chest pain or EKG findings seems unlikely. We will obtain CT of chest, abdomen and pelvis and consider cardiac MRI to investigate for malignancy. Will also test for TB. This morning's episode of lightheadedness was likely vasovagal in nature or reflected his hypovolemic status, since he was recently on lasix at home, had pericardial fluid removed and did not get IVFsubsequently. He improved after a 500 cc NS bolus. We will provide more IVF to prevent dehydration. TREATMENT PLAN: Cardiac tamponade -CT chest, abdomen, pelvis -limited TTE tomorrow am to ensure that pericardial effusion is not accumulating and evaluate LVEF -IVF 100 cc/hr, 1 L total -consider cardiac MRI -fluid for cell count, culture, protein, glucose, malignant cell screen, etc. Patient seen with and plan of care discussed with Dr. Mei Full Code Cardiology Attending Progress Note Addendum: I have seen and examined the patient, providing chacon components as outlined below. I have reviewed the resident???s above note; my evaluation of the patient is below: Major Issues Addressed; Pericardial effusion s/p pericardiocentesis yesterday Vasovagal episode this morning after urination in AM Plan: CT C/A/P today Cardiac MRI in AM * Ale Marie RN - 12/26/2011 6:21 AM EDT Pt ambulated to bathroom and on return from bathroom he stated he felt very dizzy. Pt unable to stand and nearly collapsed on floor but was assisted by staff to a nearby cardiac chair. Pt's color pale, extremities flaccid. Able to follow commands BRICENO with equal strength bilaterally. Pt stated he felt nauseous and not well. BP left arm 75/46 right arm 87/59. 98% SpO2 on RA. HR 102 ST. No events ontele. HERT team arrived. Pt assisted back to bed. BP increasing. Pt stated he felt better and was not so dizzy. PT verbalized understanding not to get OOB unassisted. BP on auto cycle Q10min. Will continue to monitor. documented in this encounter H&P Notes * Solange Mei MD - 12/25/2011 3:36 PM EDT Cardiology Admission H&P Patient Name: Alvin Cat Date of : 1945 Age: 66 y.o. Hospital Admit Date: 12/25/2011 Inpatient Attending: Dr. Mei PCP: DIANA BOOKER MD Presenting Diagnosis/Chief Complaint: Pericardial Effusion Active Problem List: Active Hospital Problems Diagnoses ??? Pericardial effusion Priority: High ??? Dilated cardiomyopathy Priority: High Resolved Hospital Problems Diagnoses Date Resolved History of Present Illness: HPI 66 y/o male with no history of cardiac disease presents with 2 weeks of shortness of breath, dyspnea on exertion, and lower extremity swelling. These symptoms have been gradual in onset over the past2 weeks. 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 For example, he would become short of breath while mowing his lawn, would rest for 5-10 minutes, feel improved, and be able to continue with his activity. He has also had lower extremity swelling over this time period as well, which is new. He has no shortness of breath with rest, no orthopnea, and no PND. He saw his PCP with these symptoms 6 days prior to admission, and he was prescribed lasix for his leg swelling. He continued to have symptoms and again presented to his PCP and an echocardiogram was done which showeda large pericardial effusion, with echocardiographic evidence of tamponade. [facility] cardiology was then contacted and he was accepted in transfer to the cardiology service. On arrival to [facility] he was feeling well without complaints of shortness of breath or chest pain. Last year had a similar episode of leg swelling and shortness of breath which resolved with time. History of rotator cuff tear. Hx of tic exposure Past Medical History: Osteoarthritis B/l knee replacement Surgical History/Problems: Past Surgical History Procedure Date ??? Created by interface arthroscopic knee surgeries x3 Procedure Date: 2004 ??? Created by interface Entered not Verified Procedure Date: 04/24/2010 ??? Created by interface hernia repair Procedure Date: 1982 ??? 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 acetaminophen (TYLENOL) 500 mg tablet Take 1,000 mg by mouth 2 times daily. ??? ibuprofen (ADVIL;MOTRIN) 200 mg tablet Take 600 mg by mouth 2 times daily as needed. ??? ACYCLOVIR ORAL Take 2,000 mg by mouth 2 times daily as needed. ??? sildenafil (VIAGRA) 100 mg tablet Take 100 mg by mouth as needed. 25 mg - 50 mg prn ??? amitriptyline (ELAVIL) 25 mg tablet Take 12.5 mg by mouth nightly as needed. ??? GLUCOSAMINE HCL/CHONDRO NORTH A (GLUCOSAMINE-CHONDROITIN ORAL) ??? LYSINE ORAL Allergies: Allergies Allergen Reactions ??? Penicillins Other (See Comments) Unknown ??? Diphenhydramine Hcl Other (See Comments) causes temors PHYSICAL EXAM: Last set of vital signs: BP 161/80 Pulse 89 Temp(Src) 36.8 ??C (98.2 ??F) (Oral) Resp 20 Ht180.3 cm (5' 11) Wt 93.7 kg (206 lb 9.1 oz) BMI 28.81 kg/m2 SpO2 97% Physical Exam Gen: pleasant middle aged male resting in no distress. Well appearing and pleasant. HEENT: no oropharynx lesions CV: regular rhythm, tachycardic, nml S1, S2, +S4. JVP elevated to 12cm. Pulses paradoxsis measured to > 40. Pulm: decreased at left base, otherwise clear without wheezes or rales Abd; soft, non-tender Ext: trace to 1+ ankle edema MSK: right 2nd pcp, left 3rd pcp joint swelling Diagnostics:EKG: NSR, low voltage, lateral TWI, no ST segment changes OSH LABS: WBC: 5.1 H/H: 14.6;43.2 PLT; 359 Ca: 9.5 Bun/Cr: 11/1.2 Na: 139 K: 4.4 Cl: 101 CO2: 31 M.3 CRP: 1.6 Troponin I: < .04 ASSESSMENT: 66 y/o male presents with 2 weeks of shortness of breath on exertion, found to have large pericardial effusion, with echocardiographic and physical exam findings consistent with cardiac tamponade. Unclear etiology of effusion, but concern for malignancy. He does have some findings of inflammatory arthritis, so connective tissue disorder possible, but minimal systemic symptoms. Pericarditis without chest pain or EKG findings seems unlikely. Will plan for urgent pericardiocentesis this evening, further work up when effusion drained. TREATMENT PLAN: Cardiac tamponade -to quality assurance lab technician for pericardiocentesis -fluid for cell count, culture, protein, glucose, malignant cell screen, etc. -consider limited echo to re-evaluate LV function following drainage -consider CT C/A/P for possible malignancy Patient seen with and plan of care discussed with Dr. Mei Full Code Provider: Rosa Bess D.O. Provider #: [id number] Cardiology Attending Admission Note Addendum: I have seen and examined the patient, providing chacon components as outlined below. I have reviewed the resident???s above note; my evaluation of the patient is below: Major Issues Addressed; Tamponade physiology with large pericardial effusion s/p pericardiocentesiswith resolution of dyspnea. Patient Active Problem List Diagnoses Code ??? Osteoarthritis 715.90AN ??? CIS - asbestos exposure ??? CIS - Bilateral knee osteoarthritis ??? CIS - Bilateral knee pain ??? BPH (benign prostatic hyperplasia) 600.90AJ ??? Erectile dysfunction 607.84D ??? CIS - rotator cuff tears ??? Condyloma 078.11E ? ? Rotator cuff disorder bilateral (L>R) 726.10L ??? 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 Pericardial effusion 423.9S ??? Dilated cardiomyopathy 425.4AH Plan: as per above which was formulated with my direct input on morning rounds. [facility] tomorrow to evaluate to [facility] further. documented in this encounter Procedure Notes * Provider, Scanning - 12/28/2011 1:34 PM EDTAssociated Order(s): SCAN DOC: GUSSET MAKER * Provider, Scanning - 12/27/2011 4:00 PM EDTAssociated Order(s): CARDIAC CATHETERIZATION documented in this encounter Miscellaneous Notes * Miscellaneous - Provider, Scanning - 12/28/2011 1:34 PM EDT * Miscellaneous - Provider, Scanning - 12/28/2011 1:28 PM EDT * Consult Note - Wayne Pastor RN - 12/26/2011 6:30 AM EDT 0600 - 0620 HERT CALL activated for pre - syncopal episode in bathroom at 0600. (Patient is s/p right heart cath. Paracentesis, 750 cc fluid removed. ) Patient ambulated to bathroom. Patient became lightheaded and dizzy ,assisted to cardiac chair in room. When HERT TEAM arrived to room 450, patientsitting in cardiac chair, color pale, not diaphoretic. Blood pressure 75-87/40-50's, alert and oriented to surroundings. Heart rate 100- 110 sinus tach, denies any chest pain or pressure or difficulty breathing., Lungs clear ,RR 18 non labored, saturations on room air 97%. Life Safety nurse and east RN transferred patient back to bed. Blood pressure lying, 100-120's/60's., less pale. Patient states he feels better. Patient was given 500 cc NS bolus, EKG done, labs drawn, CXR and stat ALEC done. Patient Stable, no need for transfer to higher level of care. * Miscellaneous - Provider, Scanning - 12/25/2011 10:21 PM EDT * Miscellaneous - Provider, Scanning - 12/25/2011 10:21 PM EDT * Discharge Summary - Donya Medrano MD - 12/25/2011 7:57 PM EDT Inpatient Cardiology - Discharge Summary Patient Name: Alvin Cat Patient Age: 66 y.o. Birthdate: 1945 Admit date: 12/25/2011 Discharge date : 12/25/2011 Attending Physician: Nic Tran II, MD Discharge Diagnoses (Hospital Problems) and Secondary Diagnoses (Chronic Problems): Active Hospital Problems Diagnoses ??? Pericardial effusion Priority: High ??? Dilated cardiomyopathy Priority: High Resolved Hospital Problems Diagnoses Date Resolved Active Non-Hospital Problems Diagnoses ? ? Rotator cuff disorder bilateral (L>R) ??? 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 Condyloma ??? Osteoarthritis ??? 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 CIS - Bilateral knee pain ??? CIS - rotator cuff tears ??? BPH (benign prostatic hyperplasia) ??? Erectile dysfunction ??? CIS - asbestos exposure Operations/Major Procedures: Operations: CARDIAC CATHETERIZATION - Procedure: pericariocentesis History of Presentation: HPI 66 y/o male with no history of cardiac disease presents with 2 weeks of shortness of breath, dyspnea on exertion, and lower extremity swelling. These symptoms have been gradual in onset over the past2 weeks. 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 For example, he would become short of breath while mowing his lawn, would rest for 5-10 minutes, feel improved, and be able to continue with his activity. He has also had lower extremity swelling over this time period as well, which is new. He has no shortness of breath with rest, no orthopnea, and no PND. He saw his PCP with these symptoms 6 days prior to admission, and he was prescribed lasix for his leg swelling. He continued to have symptoms and again presented to his PCP and an echocardiogram was done which showeda large pericardial effusion, with echocardiographic evidence of tamponade. [facility] cardiology was then contacted and he was accepted in transfer to the cardiology service. On arrival to [facility] he was feeling well without complaints of shortness of breath or chest pain. Last year had a similar episode of leg swelling and shortness of breath which resolved with time. History of rotator cuff tear. Hx of tic exposure and asbestos exposure. Hospital Course: Immediately after admission the patient underwent right heart cath and pericardiocentesis. 750 cc'sfluid was removed and his symptoms resolved. Analysis of the pericardial fluid showed and LDH ratio(pericardial fluid:serum) of 2500/271=9.2, total protein ratio=4.8/7.6=0.6, which is consistent with exudative etiology of the effusion. Pathology report is pending. The differential includes post-viral infection effusion, malignancy, infection and structural disease. CT of chest, abdomen and pelvis was negative, cardiac MRI still pending. His exudative pericardial effusion was concerning for malignancy. The patient recovered The patient was encouraged to return for continued workup of the cause of his effusion with Dr. Hernández as an outpatient. The patient had HTN of 150's/100's and tachycardia of HR in 100's through the admission. Etiology of the HTN and tachycardia is unclear. He also experienced 1 presyncopal episode after urination withlightheadedness, abdominal discomfort and hypotension to SBP of 90's briefly. Immediately after theepisode his neuro, pulmonary and cardiac exam was normal and EKG showed sinus tachycardia with a question of left ventricular hypertrophy. Stat CXR and stat TTE ruled out pneumothorax and accumulation of effusion. The episode was interpreted as vasovagal pre-syncope. He recovered after a 500 cc bolus of NS was administered, and remained well for the next 1.5 days until discharge, walked around the floor and was asymptomatic. Discussion was made regarding a small pericardial effusion observed on the chest CT 24 h after thoracentesis. We tried to obtain a follow-up echo to ensure that the pericardial effusion is not accumulating on day 2 after thoracentesis, but the patient insisted that he wants to leave and get the procedure done as an outpatient. A follow-up TTE was scheduled at [facility] at the earliest date available, 01/02/2012. Patient was instructed to return to the hospital ER if he experiences recurrence or worsening of symptoms. Important Studies and Lab Data: Labs: Lab Results Component Value Date WBC 6.9 12/27/2011 HGB 14.9 12/27/2011 HCT 43.0 12/27/2011 PLATELET 304 12/27/2011 Recent Labs Basename 12/26/11 0615 ??? INR 1.1 Lab Results Component Value Date NA 138 12/27/2011 K 4.0 12/27/2011 CL 104 12/27/2011 CO2 25 12/27/2011 BUN 13 12/27/2011 CREATININE 1.07 12/27/2011 Recent Labs Basename 12/25/11 1607 ??? TSH 1.24 Studies: TTE 12/25/2011 (obtained before pericardiocentesis) 1. There is a moderate to large circumferential pericardial effusion. There are echo findings consistent with tamponade physiology. What is likely a fibrinous strand is noted in the pericardial space lateral to the left atrium. (Dr. Hernández informed of these findings.) 2. Left ventricular chamber size, wall thickness, global and segmental systolic function are within normal limits. Ejection fraction is estimated to be 65%. 3. Right ventricular chamber size, wall thickness, and systolic function are within normal limits. 4. There is no hemodynamically significant valve disease. 5. See remainder of report for additional findings. TTE 12/26/2011 (obtained after pericardiocentesis) 1. There is a small circumferential pericardial effusion. There is no echo evidence of pericardial tamponade. 2. There is normal global left ventricular systolic function. Ejection fraction is estimated to be 65%. There are no left ventricular segmental wall motion abnormalities. 3. Right ventricular global systolic function is probably normal. Chest X ray 12/26/2011 (obtained after pericardiocentesis) Lungs are clear and well expanded. No pneumothorax or pleural effusion. Compared to prior exam of 2009, cardiac silhouette is likely similar in size, accounting for magnification and difference in technique. Pulmonary vascularity is within normal limits. No acute cardiopulmonary process. CT chest, abdomen and pelvis, 12/26/2011 Chest: Linear focal scarring is seen in the left lower lobe. The lungs are otherwise unremarkable. No pleural effusions, areas of airspace consolidation or suspicious nodules. No thoracic adenopathy, to include the axilla, mediastinum, and manuel. A mild to moderate pericardial effusion is noted. The liver is normal. No hepatic lesions. No dilated intrahepatic or extrahepatic biliary ducts. No perihepatic fluid. The spleen is unremarkable. The gallbladder and pancreas are normal. The adrenal glands are normal. A 1.8 cm cyst is seen in the interpolar region of the right kidney. A smaller simple cyst is seen in the lower pole of the right kidney. A nonobstructing cortical calcification is seen in the left kidney. No renal masses. No adenopathy, free fluid or free air. The bowel pattern is unremarkable. No evidence of small bowel dilatation or abnormal small bowel wall thickening. Pelvis: No pelvic free fluid or free air. No adenopathy. A left inguinal hernia is noted containing a non strangulated loop of colon. The osseous ear structures remarkable for degenerative changes. Impression 1. Mild to moderate pericardial effusion. 2. No evidence of chest, abdominal, or pelvic malignancy. Pending Studies and Lab Data: Pathology report on pericardial fluid analysis, 12/25/2011 Cardiac MRI obtained on 12/27/2011, read pending TTE to be obtained on January 01 at [facility] Discharge Conditions/Prognosis: Good Discharge to: Home Discharge Medications: Current Discharge Medication List Continued medications, unchanged Dose Details loratadine (CLARITIN) 10 mg tablet 10 mg Take 10 mg by mouth daily. Qty: Refills: acetaminophen (TYLENOL) 500 mg tablet 1,000 mg Take 1,000 mg by mouth 2 times daily. Qty: Refills: ibuprofen (ADVIL;MOTRIN) 200 mg tablet 600 mg Take 600 mg by mouth 2 times daily as needed. Qty: Refills: ACYCLOVIR ORAL 2,000 mg Take 2,000 mg by mouth 2 times daily as needed. Qty: Refills: sildenafil (VIAGRA) 100 mg tablet 100 mg Take 100 mg by mouth as needed. 25 mg - 50 mg prn Qty: Refills: amitriptyline (ELAVIL) 25 mg tablet 12.5 mg Take 12.5 mg by mouth nightly as needed. Qty: Refills: GLUCOSAMINE HCL/CHONDRO NORTH A (GLUCOSAMINE-CHONDROITIN ORAL) Qty: Refills: Comments: << Patient Not Taking >> LYSINE ORAL Qty: Refills: Comments: << Patient Not Taking >> Medications STOPPED Dose furosemide (LASIX) 20 mg tablet 20 mg Updated Allergies/ADRs: Allergies Allergen Reactions ??? Penicillins Other (See Comments) Unknown ??? Diphenhydramine Hcl Other (See Comments) causes temors Follow-up Recommendations for Providers: Please follow up on the patient's tachycardia and hypertension. The patient would benefit from continued work-up of the etiology of his effusion. Please follow-up on the pathology report of the pericardial fluid analysis and interpretation of his cardiac MRI. Instructions Given to Patient at Discharge: Provider Instructions Please return to the hospital ED right away if your symptoms return or worsen, if you develop shortness of breath as you did before, and if you develop chest pain, chest pressure, nausea, vomiting orfever. You have been hospitalized because there was an accumulation of fluid around your heart, which madeit unable to pump your blood properly. This is known as tamponade. This is the reason why your legswere swelling and you were experiencing shortness of breath. It is not clear why fluid accumulated around the heart. We drained this fluid and sent it to the lab for analysis. We are waiting for the complete set of test results. We are also waiting for completed interpretation of your imaging. Please keep a log of your heart rate and blood pressure at home every day. You had high blood pressure and a rapid heart rate during this admission, and this log will help your doctors to understand the reason for this. Please be sure to follow up with Dr. Kurt Hernández at [facility] on January 14 at 2:10 pm, location [facility]. This is important to continue the work-up for the cause of your tamponade. You should also follow up with your primary care doctor, Dr. DIANA BOOKER, on , January 01, at12:50 pm. General Instructions None Future Appointments and Orders Future Appointments: Provider: Department: Dept Phone: Center: 01/15/2012 2:10 PM Kurt Hernández MD [facility] 4a [phone] [facility] Joint Appt Nurse Cardiology, RN [facility] 4a [phone] [facility] Future Orders Please Complete By Expires Echo Transthoracic (Complete) [ECH10 Custom] 12/30/11 12/26/12 ProcessInstructions: Scheduling Instructions: Comments: Questions: Responses: Should this service/procedure be billed to the research sponsor? Which location will this be performed? [place] Provider Contact Information: Attending: Dr. Mei Fellow: Dr. Hernández Discharge References/Attachments: Discharge References/Attachments None Signed: Donya Medrano MD, PhD Internal Medicine PGY-1 DATE: 12/27/2011 documented in this encounter Plan of Treatment Scheduled Orders Name Type Priority Associated Diagnoses Orde r Schedule EKG 12 Lead ECG Routine Pericardial effusion One Time for 1 Occurrences starting 12/25/2011 until 12/25/2011 XR chest routine PA & lateral Imaging Routine Once PRN (for Ra diant use) for 1 Occurrences starting 12/26/2011 until 12/26/2011 MRI- Cardiac morph/func with/WO contrast Imaging Routine Once PRN (for Ra diant use) for 1 Occurrences starting 12/26/2011 until 12/26/2011 *CT generic chest, abdomen, & pelvis Imaging Routine Once PRN (for Radiant use) for 1 Occurrences starting 12/26/2011 until 12/26/2011 documented as of this encounter Procedures Procedure Name Priority Date/Time Associated Diagnosis Comments GUSSET MAKER SCAN 12/28/2011 1:34 PM EDT MRI CARDIAC MORPHOLOGY FUNCTION WWO CONTRAST Routine 12/27/2011 7:50 AM EDT QUANTIFERON-TB GOLD Routine 12/27/2011 5 :36 AM EDT DIFFERENTIAL, AUTOMATED Routine 12/27/19 12 5:36 AM EDT CBC (WITH DIFF) Routine 12/27/2011 5:36 AM EDT PHOSPHORUS Routine 12/27/2011 5:36 AM EDT MAGNESIUM Routine 12/27/2011 5:36 AM EDT BASIC METABOLIC PANEL Routine 12/27/2011 5:[address] CHEST ABDOMEN PELVIS W CONTRAST (GENERIC) Routine 12/26/2011 5:59 PM EDT CARDIAC CATHETERIZATION Routine 12/26/19 12 9:52 AM EDT ECHOCARDIOGRAM TRANSTHORACIC STAT 12/26/2011 8:46 AM EDT Pericardial effusion XR CHEST ONE VIEW Routine 12/26/2011 7:0 7 AM EDT DIFFERENTIAL, AUTOMATED Routine 12/26/19 12 6:15 AM EDT CARDIAC ENZYMES ([facility]) Routine 12/26/2011 6:15 AM EDT PROTHROMBIN TIME Routine 12/26/2011 6:15 AM EDT CBC (WITH DIFF) Routine 12/26/2011 6:15 AM EDT HEPATIC FUNCTION PANEL Routine 2 6:15 AM EDT LIPID PANEL (REFLEX DIRECT LDL) Routine 12/26/2011 6:15 AM EDT BASIC METABOLIC PANEL Routine 12/26/2011 6:15 AM EDT EKG 12-LEAD STAT 12/26/2011 6:01 AM EDT Pericardial effusion BODY FLUID CULTURE AUTOMATED Routine 12/25/2011 8:27 PM EDT NON-FOREIGN CAR MECHANIC FINAL REPORT Routine 12/25/2011 7:06 PM EDT AFB CULTURE Routine 12/25/2011 7:03 PM EDT CYTOMEGALOVIRUS CULTURE Routine 12/25/19 12 7:03 PM EDT ANAEROBIC CULTURE Routine 12/25/2011 7:0 2 PM EDT FUNGAL STAIN Routine 12/25/2011 7:02 PM EDT BODY FLUID CULTURE, AEROBIC Routine 12/25/2011 7:02 PM EDT FUNGUS CULTURE Routine 12/25/2011 7:02 PM EDT MISCELLANEOUS LAB REQUEST Routine 12/25/2011 6:15 PM EDT BODY FLUID HOLD Routine 12/25/2011 6:15 PM EDT BODY FLUID MISCELLANEOUS Routine 12/25/2011 6:15 PM EDT CHOLESTEROL LEVEL BODY FLUID Routine 12/25/2011 6:15 PM EDT CELL COUNT BODY FLUID Routine 12/25/2011 6:15 PM EDT HEMATOCRIT BODY FLUID Routine 12/25/2011 6:15 PM EDT PROTEIN LEVEL BODY FLUID Routine 12/25/2011 6:15 PM EDT LACTATE DEHYDROGENASE BODY FLUID Routine 12/25/2011 6:15 PM EDT GLUCOSE LEVEL BODY FLUID Routine 12/25/2011 6:15 PM EDT ALBUMIN LEVEL BODY FLUID Routine 12/25/2011 6:15 PM EDT CYTOPATHOLOGY NON-GYNECOLOGICAL Routine 12/25/2011 5:40 PM EDT CARDIAC CATHETERIZATION 12/25/19 12 5:19 PM EDT percardial effusion BMP W/FASTING GLUCOSE STAT 12/25/2011 4:07 PM EDT DNA ANTIBODY (DOUBLE-STRANDED) Routine 12/25/2011 4:07 PM EDT DIFFERENTIAL, AUTOMATED STAT 12/25/19 12 4:07 PM EDT APTT STAT 12/25/2011 4:07 PM EDT PROTHROMBIN TIME STAT 12/25/2011 4:07 PM EDT CBC (WITH DIFF) STAT 12/25/2011 4:07 PM EDT RHEUMATOID FACTOR, QUANT Routine 12/25/2011 4:07 PM EDT TSH Routine 12/25/2011 4:07 PM EDT LACTATE DEHYDROGENASE Routine 12/25/2011 4:07 PM EDT EKG 12-LEAD Routine 12/25/2011 4:01 PM EDT Pericardial effusion ECHOCARDIOGRAM TRANSTHORACIC Routine 12/25/2011 3:52 PM EDT Pericardial effusion documented in this encounter Results * Echo Transthoracic (Complete) (01/02/2012 4:31 PM EDT) [facility] EF 60 HEARTLAB SYSTEM Anatomical Region Laterality Modality Other 01/02/2012 Narrative 01/02/2012 4:43 PM EDT Procedure: ? Transthoracic Echocardiogram Patient: ? PODHURST ALVIN L ?(Age): 1945(66) Med Rec#: ?[id number] ? Sex: ?M ? Site Loc: ?[facility] ? Ht / Wt: ??180(cm)/94(kg) Pt. Loc: ? Echo Lab ? BSA: ?2.17 Study Date: ?01/02/2012 ? Pt. Type: Outpatient Tape: ? Referring: Solange Mei MD Referring: RIAN CARDOZO APRN, E Mill Machinist: Lara Valerio Diagnosis:CPT Code(s): ??Color Doppler (53227), ??Echo Full (05383), Spectral Doppler (53594), Indication(s): ??Pericardial effusion, F/U Rhythm: Sinus HR [...] ? Mid-Inferior ?Normal ? Mid-Inferoseptal ?Normal ? [place]-Septal ? Normal ? [place]-Anterior ? Normal ? [place]-Lateral ?Normal ? [place]-Inferior ? Normal ? [place]-Tip ?Normal ? Chambers ?Value ?Units (Range) ? [...] 01/02/2012 16:42:52 Images reviewed and interpretation verified [facility] Cardiac Ultrasound Laboratory Procedure Note Carl Gomez MD - 01/02/2012 Procedure: Transthoracic Echocardiogram Patient: LORIN East DOB(Age): 1945(66) Med Rec#: [id number] Sex: M Site Loc: [facility] Ht / Wt: 180(cm)/94(kg) Pt. Loc: Echo Lab BSA: 2.17 Study Date: 01/02/2012 Pt. Type: Outpatient Tape: Referring: Solange Mei MD Referring: RIAN CARDOZO APRN, [employer] Mill Machinist: Lara Valerio Diagnosis:CPT Code(s): Color Doppler (81520), Echo Full (51998), Spectral Doppler (28306), Indication(s): Pericardial effusion, F/U Rhythm: Sinus HR [...] in the inferior vena cava dimension. Misc Two-dimensional echo, spectral Doppler and color Doppler performed. Wall Motion: Segment Name Rest Base-Anteroseptal Normal Base-Anterior Normal Base-Anterolateral Normal Base-Posterolateral Normal Base-Inferior Normal Base-Inferoseptal Normal Mid-Anteroseptal Normal Mid-Anterior Normal Mid-Anterolateral Normal Mid-Posterolateral Normal Mid-Inferior Normal Mid-Inferoseptal Normal [place]-Septal Normal [place]-Anterior Normal [place]-Lateral Normal [place]-Inferior Normal [place]-Tip Normal Chambers Value Units (Range) IVSd 2D [...] 01/02/2012 16:42:52 Images reviewed and interpretation verified [facility] Cardiac Ultrasound Laboratory Solange Mei MD ECHO ORDERABLES * SCAN DOC: GUSSET MAKER (12/28/2011 1:34 PM EDT) Anatomical Region Laterality Modality Other Narrative 12/28/2011 8:08 PM EDT Procedure Note Provider, Scanning - 12/28/2011 1:34 PM EDT Scanning Provider MEDIA MGR SCAN EXT O RDR/RSLT * MRI- CARDIAC MORPH/FUNC WITH/WO CONTRAST (12/27/2011 7:50 AM EDT) Anatomical Region Laterality Modality Magnetic Resonan ce 12/27/2011 7:50 AM EDT Narrative 12/27/2011 5:12 PM EDT Examination Cardiac MR for morphology and function with and without contrast Clinical History Pericardial effusion. ??Question of restrictive myocardial disease or pericardial disease. Technique Axial and short-axis double inversion recovery without contrast. Axial and short-axis triple inversion recovery without contrast. Short and long axis cine steady-state fast precession without contrast. ?? Short and long axis delayed enhancement after contrast administration. Contrast: ??Magnevist, 20 cc. Post processing performed on an independent computer workstation including volumetric functional analysis. Comparison CT chest/abdomen/ pelvis, 12/26/2011. Findings Normal morphology and structure of the cardiac chambers. No abnormal myocardial signal on non contrast series. No delayed enhancement after intravenous contrast administration. Mild global hypokinesis. No segmental wall motion abnormality. No valvulopathy identified. ?? Moderate pericardial effusion, particularly collecting ventrally. Pericardial thickness is approximately 3 mm, which is upper limits of normal. There are 2 areas where the parietal pericardium appears adherent to the right ventricular visceral pericardium. No impairment of right ventricular diastolic filling or septal bounce. Normal contour and caliber of the great vessels. Quantitative data: Left ventricle: Anteroseptal wall thickness: 10 mm Posterolateral wall thickness: 12 mm End-diastolic dimension: 4.8 cm End-systolic dimension: 3.6 cm End-diastolic volume: 136 mL End systolic volume: 71 mL Stroke volume: 65 mL Ejection fraction: 48 % Left ventricular mass: approximately 140 g Right ventricle: End-diastolic volume: 164 mL End-systolic volume: 98 mL Stroke volume: 66 mL Ejection fraction: 40 % Impression 1. Moderate pericardial effusion, with note made of two foci of adhesion of the parietal pericardium to the visceral pericardium by the RV, of doubtful clinical significance. Pericardium upper limits of normal in thickness. ??No evidence of constrictive or tamponade physiology. 2. ??Mild global hypokinesis, with calculated LV ejection fraction of 48 %. 3. Normal myocardial morphology, without abnormal delayed enhancement to suggest an infiltrative/restrictive process. Film and interpretation reviewed by the attending Procedure Note Evi Sweeney MD - 12/27/2011 Examination Cardiac MR for morphology and function with and without contrast Clinical History Pericardial effusion. Question of restrictive myocardial disease or pericardial disease. Technique Axial and short-axis double inversion recovery without contrast. Axial and short-axis triple inversion recovery without contrast. Short and long axis cine steady-state fast precession without contrast. Short and long axis delayed enhancement after contrast administration. Contrast: Magnevist, 20 cc. Post processing performed on an independent computer workstation including volumetric functional analysis. Comparison CT chest/abdomen/ pelvis, 12/26/2011. Findings Normal morphology and structure of the cardiac chambers. No abnormal myocardial signal on non contrast series. No delayed enhancement after intravenous contrast administration. Mild global hypokinesis. No segmental wall motion abnormality. No valvulopathy identified. Moderate pericardial effusion, particularly collecting ventrally.Pericardial thickness is approximately 3 mm, which is upper limits of normal. Thereare 2 areas where the parietal pericardium appears adherent to the rightventricular visceral pericardium. No impairment of right ventricular diastolic fillingor septal bounce. Normal contour and caliber of the great vessels. Quantitative data: Left ventricle: Anteroseptal wall thickness: 10 mm Posterolateral wall thickness: 12 mm End-diastolic dimension: 4.8 cm End-systolic dimension: 3.6 cm End-diastolic volume: 136 mL End systolic volume: 71 mL Stroke volume: 65 mL Ejection fraction: 48 % Left ventricular mass: approximately 140 g Right ventricle: End-diastolic volume: 164 mL End-systolic volume: 98 mL Stroke volume: 66 mL Ejection fraction: 40 % Impression 1. Moderate pericardial effusion, with note made of two foci of adhesionof the parietal pericardium to the visceral pericardium by the RV, of doubtful clinical significance. Pericardium upper limits of normal in thickness.No evidence of constrictive or tamponade physiology. 2. Mild global hypokinesis, with calculated LV ejection fraction of 48 %. 3. Normal myocardial morphology, without abnormal delayed enhancement to suggest an infiltrative/restrictive process. Film and interpretation reviewed by the attending Solange Mei MD [facility] MRI ORDERABLES * (ABNORMAL) DIFFERENTIAL, AUTOMATED (12/27/2011 5:36 AM EDT) Neutrophil % 72.3(H) 34.0 - 71.0 % CERNER MILLENNIUM Neutrophil Absolute 5.00 1.50 - 6.30 x10(3)/mc L CERNER MILLENNIUM Lymph % 14.9(L) 19.0 - 53.0 % CERNER MILLENNIUM Lymphocytes Abs 1.0 1.0 - 3.6 x10(3)/mc L CERNER MILLENNIUM Monocyte % 10.1 4.0 - 13.0 % CERNER MILLENNIUM Monocyte Abs 0.7 0.2 - 1.0 x10(3)/mc L CERNER MILLENNIUM Eos % 2.2 0.0 - 7.0 % CERNER MILLENNIUM Eosinophils Abs 0.2 0.0 - 0.5 x10(3)/mc L CERNER MILLENNIUM Basophil % 0.4 0.0 - 2.0 % CERNER MILLENNIUM Baso Absolute 0.0 0.0 - 0.2 x10(3)/mc L CERNER MILLENNIUM Immature Gran % 0.10 0.00 - 0.66 % CERNER MILLENNIUM Comment: Immature granulocytes(IG's)percentage and absolute count will include metamyelocytes, myelocytes, and promyelocytes. Blood smears from CBCs yielding IG's will be scanned manually for concordance. If this scan disagrees with the automated IG or if promyelocytes are noted, a manual differential will be performed. Immature Gran Absolute 0.01 0.00 - 0.05 x10(3)/mc L CERNER MILLENNIUM Blood specimen (specimen) 12/27/2011 5:36 AM EDT 12/27/2011 5:59 AM EDT Solange Mei MD HEMATOLOGY ORDERABLE S CERNER MILLENNIUM * CBC (with Diff) (12/27/2011 5:36 AM EDT) White Blood Cell 6.9 4.0 - 10.0 x10(3)/mcL CERNER MILLENNIUM Red Blood Cell 4.89 4.63 - 6.08 x10(6)/mcL CERNER MILLENNIUM Hemoglobin 14.9 13.7 - 17.5 gm/dL CERNER MILLENNIUM Hematocrit 43.0 40.0 - 51.0 % CERNER MILLENNIUM Mean Cell Volume 87.9 79.0 - 92.0 fL CERNER MILLENNIUM Mean Cell Hemoglobin 30.5 25.6 - 32.2 pg CERNER MILLENNIUM Mean Cell Hemoglobin Concentration 34.7 32.0 - 36.5 gm/dL CERNER MILLENNIUM Platelet 304 145 - 370 x10(3)/mcL CERNER MILLENNIUM RDW Standard Deviation 43.6 35.0 - 46.0 fL CERNER MILLENNIUM RDW coefficient of variation 13.6 10.9 - 14.4 % CERNER MILLENNIUM Mean Platelet Volume 9.9 9.0 - 12.0 fL CERNER MILLENNIUM Blood specimen (specimen) 12/27/2011 5:36 AM EDT 12/27/2011 5:59 AM EDT Narrative Resulting Agency Comment Spec In Lab Solange Mei MD HEMATOLOGY ORDERABLE S CERCAMILA MCCORDENNIUM * Phosphorus (12/27/2011 5:36 AM EDT) Phosphorus 3.7 2.5 - 4.5 mg/dL CERNER MILLENNIUM Blood specimen (specimen) 12/27/2011 5:36 AM EDT 12/27/2011 5:59 AM EDT Narrative Resulting Agency Comment Spec In Lab Solange Mei MD CHEMISTRY ORDERABLES CERNER FLEXENNIUM * Magnesium (12/27/2011 5:36 AM EDT) Magnesium 0.86 0.69 - 1.07 mmol/L CERNER MILLENNIUM Blood specimen (specimen) 12/27/2011 5:36 AM EDT 12/27/2011 5:59 AM EDT Narrative Resulting Agency Comment Spec In Lab Solange Mei MD CHEMISTRY ORDERABLES CERCAMILA MCCORDENNIUM * Basic Metabolic Panel (non-fasting) (12/27/2011 5:36 AM EDT) Glucose 105 60 - 199 mg/dL CERNER MILLENNIUM Comment:Diabetes: >=200 mg/d L plus symptoms Blood Urea Nitrogen 13 10 - 20 mg/dL CERNER MILLENNIUM Creatinine 1.07 0.80 - 1.50 mg/dL CERNER MILLENNIUM Comment: Please note that the pediatric reference intervals supplied above were not validated at [facility]. Results from pediatric patients should be interpreted in conjunction to the patient's age, height and muscle mass. Sodium 138 135 - 145 mmol/L CERNER MILLENNIUM Potassium 4.0 3.5 - 5.0 mmol/L CERNER MILLENNIUM Comment: Please note: ??Patients with WBC >100,000 may have falsely elevated Potassium levels. ??For accurate Potassium quantification in these patients send serum separator tube (gold top) for subsequent determinations. ??Contact the Clinical Chemistry Laboratory if there are any questions. Chloride 104 98 - 107 mmol/L CERNER MILLENNIUM Carbon Dioxide 25 22 - 31 mmol/L CERNER MILLENNIUM Anion Gap 9 5 - 15 mmol/L CERNER MILLENNIUM Calcium 8.9 8.5 - 10.5 mg/dL CERNER MILLENNIUM Est Glomerular Filtration Rate >60 >=60 CERNER MILLENNIUM Comment: The National Kidney Disease Education Program (NKDEP) has recommended all laboratories report estimated GFR (eGFR) along with plasma creatinine measurements to assist you with recognition of early kidney disease. Caveats: ??Plasma creatinine should be at steady-state (unchanged within the past week). For patients multiply eGFR by 1.2. The MDRD equation was developed using patients between the ages of 18 and 70 years. ?? The MDRD equation has not been validated for patients < 18 years of age and should not be used to assess renal function in the pediatric population. ??The MDRD eGFR equation will also overestimate the true GFR of patients above the age of 70. ??This overestimation is variable but increases with age. At present, NKDEP does NOT recommend using the MDRD equation for drug dosing purposes and pharmacists should continue to use their current dosing methods. In addition, numerical eGFR values greater than 60 ml/min/1.73 square meters should be treated as > 60, and not an exact number due to greater inaccuracies at these higher values. Per NKDEP, they classify normal renal function as any GFR >60ml/min/1.73 square meters; chronic kidney disease when GFR <60, and renal failure when GFR <15. ??This calculation may not be valid for patients with atypical muscle mass (very lean or obese), acute renal failure, and in patients with diabetic kidney disease. References: http://nkdep.nih.gov/resources/NKDEP_Suggestn4Labs_0606_508.pdf http://www.kidney.org/professionals/kls/pdf/faq_gfr.pdf Isaura López, Edward NA, Charleen AK, Pancho TS, Joanie AD, José Antonio BRIAN. Relative performance of the MDRD and CKD-EPI equations for estimating glomerular filtration rate among patients with varied clinical presentations. Clin J Am Soc Nephrol;6:1963-72. Blood specimen (specimen) 12/27/2011 5:36 AM EDT 12/27/2011 5:59 AM EDT Narrative Resulting Agency Comment Spec In Lab Solange Mei MD CHEMISTRY ORDERABLES [facility] * QuantiFERON-TB Gold (12/27/2011 5:36 AM EDT) Quantiferon-TB Gold Negative Negative [facility] Comment: M. tuberculosis (TB) infection NOT likely A negative QuantiFERON-TB Gold IT result does not preclude the possibility of M. tuberculosis infection or tuberculosis disease: false negative results can be due to stage of infection (e.g., specimen obtained prior to the development of cellular immune response), co-morbid conditions which affect immune function, or other individual immunological factors. The performance of the QuantiFERON-TB Gold IT test has not been extensively evaluated with specimens from the following groups of individuals: 1. Individuals who have impaired or altered immune function such as those who have HIV infection or AIDS, those who have transplantation managed with immunosuppressive treatment or others who receive immunosuppressive drugs (e.g., corticosteroids, methotrexate, azathioprine, cancer chemotherapy), and those who have other clinical conditions: diabetes, silicosis, chronic renal failure, hematological disorders (e.g., leukemia and lymphomas), and other specific malignancies (e.g., carcinoma of the head or neck and lung). 2. Individuals younger than age 17 years. 3. women. As of 11-06-09 the QuantiFERON-TB Gold IT assay will be performed in the [facility] Reference [facility]. Please call , press 4; with questions. Blood specimen (specimen) 12/27/2011 5:36 AM EDT 12/30/2011 8:00 AM EDT Narrative Resulting Agency Comment Spec In Lab Solange Mei MD CHEMISTRY ORDERABLES Performing Organization Address City/State/[facility] Co de Phone Number [facility] * CT CHEST, ABDOMEN, & PELVIS WITH CONTRAST (12/26/2011 5:59 PM EDT) Anatomical Region Laterality Modality Computed Tomogra phy 12/26/2011 5:59 PM EDT Narrative 12/27/2011 8:[address] Chest / Abdomen / Pelvis With Contrast Clinical History Reason for exam and clinical history: large pericardial effusion, concern for malignancy; Comparison None Technique 110 mL Omnipaque 350 utilized for intravenous contrast. Findings Chest: Linear focal scarring is seen in the left lower lobe. ??The lungs are otherwise unremarkable. ??No pleural effusions, areas of airspace consolidation or suspicious nodules. ??No thoracic adenopathy, to include the axilla, mediastinum, and manuel. ??A mild to moderate pericardial effusion is noted. The liver is normal. ??No hepatic lesions. ??No dilated intrahepatic or extrahepatic biliary ducts. ??No perihepatic fluid. ??The spleen is unremarkable. ?? The gallbladder and pancreas are normal. ??The adrenal glands are normal. ??A 1.8 cm cyst is seen in the interpolar region of the right kidney. ??A smaller simple cyst is seen in the lower pole of the right kidney. A nonobstructing cortical calcification is seen in the left kidney. No renal masses. No adenopathy, free fluid or free air. ??The bowel pattern is unremarkable. ??No evidence of small bowel dilatation or abnormal small bowel wall thickening. Pelvis: No pelvic free fluid or free air. ??No adenopathy. ??A left inguinal hernia is noted containing a non strangulated loop of colon. The osseous ear structures remarkable for degenerative changes. Impression ? 1. Mild to moderate pericardial effusion. ? 2. No evidence of chest, abdominal, or pelvic malignancy. Procedure Note Ed Tran MD - 12/27/[address] Chest / Abdomen / Pelvis With Contrast Clinical History Reason for exam and clinical history: large pericardial effusion, concernfor malignancy; Comparison None Technique 110 mL Omnipaque 350 utilized for intravenous contrast. Findings Chest: Linear focal scarring is seen in the left lower lobe. The lungs areotherwise unremarkable. No pleural effusions, areas of airspace consolidation or suspicious nodules. No thoracic adenopathy, to include the axilla, mediastinum, and manuel. A mild to moderate pericardial effusion isnoted. The liver is normal. No hepatic lesions. No dilated intrahepatic or extrahepatic biliary ducts. No perihepatic fluid. The spleen isunremarkable. The gallbladder and pancreas are normal. The adrenal glands are normal.A 1.8 cm cyst is seen in the interpolar region of the right kidney. A smallersimple cyst is seen in the lower pole of the right kidney. A nonobstructingcortical calcification is seen in the left kidney. No renal masses. No adenopathy, free fluid or free air. The bowel pattern is unremarkable.No evidence of small bowel dilatation or abnormal small bowel wallthickening. Pelvis: No pelvic free fluid or free air. No adenopathy. A left inguinal herniais noted containing a non strangulated loop of colon. The osseous ear structures remarkable for degenerative changes. Impression 1. Mild to moderate pericardial effusion. 2. No evidence of chest, abdominal, or pelvic malignancy. Solange Mei MD IMG CT ORDERABLES * Cardiac Catheterization (12/26/2011 9:52 AM EDT) Anatomical Region Laterality Modality Other Narrative 12/27/2011 4:00 PM EDT Procedure Note Provider, Scanning - 12/27/2011 4:00 PM EDT Solange Mei MD CARDIAC CATH ORDERAB LES * Echo Transthoracic (Complete) (12/26/2011 8:46 AM EDT) EF 65 HEARTLAB SYSTEM Anatomical Region Laterality Modality Other 12/26/2011 Narrative 12/26/2011 8:53 AM EDT Procedure: ? Transthoracic Echocardiogram Patient: ? PODHURST ALVIN L ?(Age): 1945(66) Med Rec#: ?[id number] ? Sex: ?M ? [place] [place] Ht / Wt: ??180(cm)/93(kg) Pt. Loc: ? Adult Floor ?BSA: ?2.13 Study Date: ?12/26/2011 ? Pt. Type: Inpatient Tape: ? Referring: Solange Mei MD Referring: MARLO WORKMAN E Mill Machinist: Devaughn Ahuja MS, RUST Diagnosis: ??Pericardial effusion (423.9) CPT Code(s): ??Echo LTD (96057), ??Doppler LTD (18736), Indication(s): ??Pericardial effusion, F/U Rhythm: HR ?BP ?120/77 ?? SUMMARY: 1. There is a small circumferential pericardial effusion. ??There is no echo evidence of pericardial tamponade. 2. There is normal global left ventricular systolic function. ??Ejection fraction is estimated to be 65%. ??There are no left ventricular segmental wall motion abnormalities. 3. Right ventricular global systolic function is probably normal. FINDINGS: Left Ventricle ?There is normal global left ventricular systolic function. ??Ejection fraction is estimated to be 65%. ?There are no left ventricular segmental wall motion abnormalities. Right Ventricle ?Right ventricular global systolic function is probably normal. Pericardium ?There is a small circumferential pericardial effusion. ?There is no echo evidence of pericardial tamponade. Misc ?2-D echo/SD Wall Motion: Segment Name ?Rest ? Base-Anteroseptal ?? Normal ? Base-Anterior ? Normal ? Base-Anterolateral ??Normal ? Base-Posterolateral Normal ? Base-Inferior ? Normal ? Base-Inferoseptal ?? Normal ? Mid-Anteroseptal ?Normal ? Mid-Anterior ?Normal ? Mid-Anterolateral ?? Normal ? Mid-Posterolateral ??Normal ? Mid-Inferior ?Normal ? Mid-Inferoseptal ?Normal ? [place]-Septal ? Normal ? [place]-Anterior ? Normal ? [place]-Lateral ?Normal ? [place]-Inferior ? Normal ? [place]-Tip ?Normal ? Chambers ?Value ?Units (Range) ? LV EF Est ? 65 ? % (55 to 80) ? This report has been electronically signed by: Washington Nicole M.D. ? 12/26/2011 08:52:57 Images reviewed and interpretation verified [facility] Cardiac Ultrasound Laboratory Procedure Note Washington Nicole MD - 12/26/2011 Procedure: Transthoracic Echocardiogram Patient: LORIN East (Age): 1945(66) Med Rec#: [id number] Sex: M [place] [facility] Ht / Wt: 180(cm)/93(kg) Pt. Loc: Adult Floor BSA: 2.13 Study Date: 12/26/2011 Pt. Type: Inpatient Tape: Referring: Solange Mei MD Referring: MARLO WORKMAN E Mill Machinist: Devaughn Ahuja MS, RUST Diagnosis: Pericardial effusion (423.9) CPT Code(s): Echo LTD (87086), Doppler LTD (66202), Indication(s): Pericardial effusion, F/U Rhythm: HR BP 120/77 SUMMARY: 1. There is a small circumferential pericardial effusion. There is no echo evidence of pericardial tamponade. 2. There is normal global left ventricular systolic function. Ejection fraction is estimated to be 65%. There are no left ventricular segmental wall motion abnormalities. 3. Right ventricular global systolic function is probably normal. FINDINGS: Left Ventricle There is normal global left ventricular systolic function. Ejection fraction is estimated to be 65%. There are no left ventricular segmental wall motion abnormalities. Right Ventricle Right ventricular global systolic function is probably normal. Pericardium There is a small circumferential pericardial effusion. There is no echo evidence of pericardial tamponade. [facility] 2-D echo/SD Wall Motion: Segment Name Rest Base-Anteroseptal Normal Base-Anterior Normal Base-Anterolateral Normal Base-Posterolateral Normal Base-Inferior Normal Base-Inferoseptal Normal Mid-Anteroseptal Normal Mid-Anterior Normal Mid-Anterolateral Normal Mid-Posterolateral Normal Mid-Inferior Normal Mid-Inferoseptal Normal [place]-Septal Normal [place]-Anterior Normal [place]-Lateral Normal [place]-Inferior Normal [place]-Tip Normal Chambers Value Units (Range) LV EF Est 65 % (55 to 80) This report has been electronically signed by: Washington Nicole M.D. 12/26/2011 08:52:57 Images reviewed and interpretation verified [facility] Cardiac Ultrasound Laboratory Solange Mei MD ECHO ORDERABLES * XR CHEST PA OR AP- 1 VIEW (12/26/2011 7:07 AM EDT) Anatomical Region Laterality Modality Chest N/A Radiographic Marsha ging 12/26/2011 7:07 AM EDT Narrative 12/26/2011 12:15 PM EDT Examination CHEST AP/XPORT Clinical History Eval effusion, reaccumulation, ptx Comparison 04/12/2010. Technique AP portable semi upright chest x-ray at 0651 hour. Findings Lungs are clear and well expanded. ??No pneumothorax or pleural effusion. ?? Compared to prior exam of 2009, cardiac silhouette is likely similar in size, accounting for magnification and difference in technique. ??Pulmonary vascularity is within normal limits. Impression No acute cardiopulmonary process. Film and interpretation reviewed by the attending Procedure Note Evi Sweeney MD - 12/26/2011 Examination CHEST AP/XPORT Clinical History Eval effusion, reaccumulation, ptx Comparison 04/12/2010. Technique AP portable semi upright chest x-ray at 0651 hour. Findings Lungs are clear and well expanded. No pneumothorax or pleural effusion. Compared to prior exam of 2009, cardiac silhouette is likely similar insize, accounting for magnification and difference in technique. Pulmonary vascularity is within normal limits. Impression No acute cardiopulmonary process. Film and interpretation reviewed by the attending Solange Mei MD IMG DX ORDERABLES * (ABNORMAL) DIFFERENTIAL, AUTOMATED (12/26/2011 6:15 AM EDT) Neutrophil % 69.8 34.0 - 71.0 % CERNER MILLENNIUM Neutrophil Absolute 5.90 1.50 - 6.30 x10(3)/mc L CERNER MILLENNIUM Lymph % 16.7(L) 19.0 - 53.0 % CERNER MILLENNIUM Lymphocytes Abs 1.4 1.0 - 3.6 x10(3)/mc L CERNER MILLENNIUM Monocyte % 11.2 4.0 - 13.0 % CERNER MILLENNIUM Monocyte Abs 1.0 0.2 - 1.0 x10(3)/mc L CERNER MILLENNIUM Eos % 1.7 0.0 - 7.0 % CERNER MILLENNIUM Eosinophils Abs 0.1 0.0 - 0.5 x10(3)/mc L CERNER MILLENNIUM Basophil % 0.5 0.0 - 2.0 % CERNER MILLENNIUM Baso Absolute 0.0 0.0 - 0.2 x10(3)/mc L CERNER MILLENNIUM Immature Gran % 0.10 0.00 - 0.66 % CERNER MILLENNIUM Comment: Immature granulocytes(IG's)percentage and absolute count will include metamyelocytes, myelocytes, and promyelocytes. Blood smears from CBCs yielding IG's will be scanned manually for concordance. If this scan disagrees with the automated IG or if promyelocytes are noted, a manual differential will be performed. Immature Gran Absolute 0.01 0.00 - 0.05 x10(3)/mc L CERNER MILLENNIUM Blood specimen (specimen) 12/26/2011 6:15 AM EDT 12/26/2011 6:31 AM EDT Solange Mei MD HEMATOLOGY ORDERABLE S [facility] * Cardiac Enzymes (12/26/2011 6:15 AM EDT) Troponin-T <0.03 <=0.03 ng/mL CERNER MILLENNIUM Comment: 0.03 ng/mL: Represents the 99th percentile upper reference limit for normals. >0.03 ng/mL: Elevated cardiac troponin T level indicative of myocardial damage. Diagnosis of acute, evolving or recent CO requires a typical rise and gradual fall of cTnT with at least ONE of the following: a) Ischemic symptoms b) Development of pathologic Q waves on the ECG c) ECG changes indicative of eschemia (S-T segment elevation/depression) d) Coronary artery intervention Serial bloods should be obtained for testing on admission, at 6 to 9 hrs and again at 12 to 24 hrs if earlier samples are negative and the clinical index of suspicion is high. Reference: [Myocardial infarction redefined a consensus document of the Joint Society of Cardiology/[place] College of Cardiology Committee for the redefinition of myocardial infarction. Journal of the [place] College of Cardiology 2000; 36: 959-969] Creatine Kinase 61 0 - 200 unit/L CERNER MILLENNIUM Blood specimen (specimen) 12/26/2011 6:15 AM EDT 12/26/2011 6:31 AM EDT Narrative Resulting Agency Comment Spec In Lab Solange Mei MD CHEMISTRY ORDERABLES [facility] * Lipid panel (fasting) (12/26/2011 6:15 AM EDT) Cholesterol, Total 126 <=199 mg/dL CERNER MILLENNIUM Comment: Recommendations of the NCEP Adult Treatment Panel for the following risk cutoff thresholds for the [place] population: Desirable: <200 mg/dL Borderline High: 200-239 mg/dL High: > or = 240 mg/dL Triglyceride 92 <=149 mg/dL CERNER MILLENNIUM Comment: Reference Range: Normal triglycerides: ??<150 mg/dL Borderline high: ??150-199 mg/dL High: ??200-499 mg/dL Very high: ??>hj=511 mg/dL JOB 2001; 285(19):2197-6261 HDL Cholesterol 46 >=40 mg/dL CER NER MILLENNIUM Comment: Reference range: ??Low HDL: ?? < 40 mg/dL ??Normal: ?40-60 mg/dL ??Desirable: > 60 mg/dL JOB 2001; 285(19):4979-2522 LDL Cholesterol 62 <=99 mg/dL CER NER MILLENNIUM Comment: Reference range: ?? Optimal: ?<100 mg/dL ?? Near Optimal/Above Optimal: ?? 100-129 mg/dL ?? Borderline high: ?130-159 mg/dL ?? High: ? 160-189 mg/dL ?? Very high: ?>nh=952 mg/dL JOB 2001: 285(19):5745-9287 Cholesterol/HDL Ratio 2.7 ratio CERNER MILLENNIUM Comment: A Cholesterol to HDL ratio below 4:1 is desirable. ??Studies suggest that increased CAD risk occurs at ratios above 5 for females and above 6 for men. ? [place] Heart Association ??(http://www.americanheart.org) ? [place] Int Med, 1994; 121:641 ? AM J Med, 1998; 105(1A):48S Blood specimen (specimen) 12/26/2011 6:15 AM EDT 12/26/2011 6:31 AM EDT Narrative Resulting Agency Comment Spec In Lab Solange Mei MD CHEMISTRY ORDERABLES Performing Organization Address [facility] de Phone Number [facility] * Prothrombin Time (12/26/2011 6:15 AM EDT) Prothrombin Time 14.6 11.9 - 14.7 sec CERNER MILLENNIUM Comment: [facility] Transfusion Committee Guidelines: INR less than 2.0, PTT less than OR equal to 43.5 seconds, or Fibrinogen greater than or equal to 100 mg/dl indicate adequate procoagulant activity for hemostasis in patients without underlying bleeding disorders. International Normalization Ratio 1.1 0.9 - 1.1 CERNER MILLENNIUM Blood specimen (specimen) 12/26/2011 6:15 AM EDT 12/26/2011 6:31 AM EDT Narrative Resulting Agency Comment Spec In Lab Solange Mei MD HEMATOLOGY ORDERABLE S Performing Organization Address [facility] Co de Phone Number EDUARDO DIAZ * Hepatic Function Panel (12/26/2011 6:15 AM EDT) Protein, Total 7.6 6.4 - 8.3 gm/dL CERNER MILLENNIUM Albumin 4.2 3.2 - 5.2 gm/dL CERNER MILLENNIUM Aspartate Aminotransferase 31 0 - 39 unit/L CERNER MILLENNIUM Alanine Aminotransferase 26 0 - 55 unit/L CERNER MILLENNIUM Alkaline Phosphatase 107 40 - 120 unit/L CERNER MILLENNIUM Bilirubin, Total 0.6 0.2 - 1.3 mg/dL CERNER MILLENNIUM Bilirubin, Direct 0.2 0.0 - 0.3 mg/dL CERNER MILLENNIUM Blood specimen (specimen) 12/26/2011 6:15 AM EDT 12/26/2011 6:31 AM EDT Narrative Resulting Agency Comment Spec In Lab Solange Mei MD CHEMISTRY ORDERABLES [facility] * Basic Metabolic Panel (non-fasting) (12/26/2011 6:15 AM EDT) Glucose 140 60 - 199 mg/dL CERNER MILLENNIUM Comment:Diabetes: >=200 mg/d L plus symptoms Blood Urea Nitrogen 12 10 - 20 mg/dL CERNER MILLENNIUM Creatinine 1.19 0.80 - 1.50 mg/dL CERNER MILLENNIUM Comment: Please note that the pediatric reference intervals supplied above were not validated at [facility]. Results from pediatric patients should be interpreted in conjunction to the patient's age, height and muscle mass. Sodium 136 135 - 145 mmol/L CERNER MILLENNIUM Potassium 3.6 3.5 - 5.0 mmol/L CERNER MILLENNIUM Comment: Please note: ??Patients with WBC >100,000 may have falsely elevated Potassium levels. ??For accurate Potassium quantification in these patients send serum separator tube (gold top) for subsequent determinations. ??Contact the Clinical Chemistry Laboratory if there are any questions. Chloride 101 98 - 107 mmol/L CERNER MILLENNIUM Carbon Dioxide 26 22 - 31 mmol/L CERNER MILLENNIUM Anion Gap 9 5 - 15 mmol/L CERNER MILLENNIUM Calcium 9.3 8.5 - 10.5 mg/dL CERNER MILLENNIUM Est Glomerular Filtration Rate >60 >=60 CERNER MILLENNIUM Comment: The National Kidney Disease Education Program (NKDEP) has recommended all laboratories report estimated GFR (eGFR) along with plasma creatinine measurements to assist you with recognition of early kidney disease. Caveats: ??Plasma creatinine should be at steady-state (unchanged within the past week). For patients multiply eGFR by 1.2. The MDRD equation was developed using patients between the ages of 18 and 70 years. ?? The MDRD equation has not been validated for patients < 18 years of age and should not be used to assess renal function in the pediatric population. ??The MDRD eGFR equation will also overestimate the true GFR of patients above the age of 70. ??This overestimation is variable but increases with age. At present, NKDEP does NOT recommend using the MDRD equation for drug dosing purposes and pharmacists should continue to use their current dosing methods. In addition, numerical eGFR values greater than 60 ml/min/1.73 square meters should be treated as > 60, and not an exact number due to greater inaccuracies at these higher values. Per NKDEP, they classify normal renal function as any GFR >60ml/min/1.73 square meters; chronic kidney disease when GFR <60, and renal failure when GFR <15. ??This calculation may not be valid for patients with atypical muscle mass (very lean or obese), acute renal failure, and in patients with diabetic kidney disease. References: http://nkdep.nih.gov/resources/NKDEP_Suggestn4Labs_0606_508.pdf http://www.kidney.org/professionals/kls/pdf/faq_gfr.pdf Isaura K, Edward NA, Charleen AK, Pancho TS, Joanie AD, José Antonio BRIAN. Relative performance of the MDRD and CKD-EPI equations for estimating glomerular filtration rate among patients with varied clinical presentations. Clin J Am Soc Nephrol;6:1963-72. Blood specimen (specimen) 12/26/2011 6:15 AM EDT 12/26/2011 6:31 AM EDT Narrative Resulting Agency Comment Spec In Lab Solange Mei MD CHEMISTRY ORDERABLES [facility] * CBC (with Diff) (12/26/2011 6:15 AM EDT) White Blood Cell 8.4 4.0 - 10.0 x10(3)/mcL EDUARDO DIAZ Red Blood Cell 5.05 4.63 - 6.08 x10(6)/mcL EDUARDO PICKENSIUM Hemoglobin 15.5 13.7 - 17.5 gm/dL CERNER MILLENNIUM Hematocrit 44.5 40.0 - 51.0 % CERNER MILLENNIUM Mean Cell Volume 88.1 79.0 - 92.0 fL CERNER MILLENNIUM Mean Cell Hemoglobin 30.7 25.6 - 32.2 pg CERNER MILLENNIUM Mean Cell Hemoglobin Concentration 34.8 32.0 - 36.5 gm/dL CERNER MILLENNIUM Platelet 326 145 - 370 x10(3)/mcL CERNER MILLENNIUM RDW Standard Deviation 44.1 35.0 - 46.0 fL CERNER MILLENNIUM RDW coefficient of variation 13.7 10.9 - 14.4 % CERNER MILLENNIUM Mean Platelet Volume 9.7 9.0 - 12.0 fL CERNER MILLENNIUM Blood specimen (specimen) 12/26/2011 6:15 AM EDT 12/26/2011 6:31 AM EDT Narrative Resulting Agency Comment Spec In Lab Solange Mei MD HEMATOLOGY ORDERABLE S Performing Organization Address City/[facility]/ZIP Co de Phone Number EDUARDO PICKENSIUM * EKG 12 Lead (12/26/2011 6:01 AM EDT) Ventricular rate 97 BPM MUSE SYSTEM Atrial Rate 97 BPM MUSE SYSTEM P-R Interval 148 ms MUSE SYSTEM QRS Duration 100 ms MUSE SYSTEM Q-T Interval 344 ms MUSE SYSTEM QTC Calculated (Bezet) 436 ms MUSE SYSTEM Calculated P [place] 57 degrees MUSE SYSTEM Calculated R [place] -16 degrees MUSE SYSTEM Calculated T [place] 92 degrees MUSE SYSTEM INTERPRETATION Normal sinus rhythm Possible Left atrial enlargement Abnormal ECG When compared with ECG of 25-DEC-2011 16:01, T wave inversion no longer evident in Lateral leads Confirmed by MD Agustina, Don ([id number]) on 12/26/2011 5:28:16 PM MUSE SYSTEM 12/26/2011 6:01 AM EDT 12/26/2011 5:28 PM EDT Solange Mei MD ECG ORDERABLES Performing Organization Address City/[facility]/ZIP Co de Phone Number MUSE SYSTEM * BODY FLUID CULTURE AUTOMATED (12/25/2011 8:27 PM EDT) Body Fluid Culture Automated ? Patient Name: ALVIN CAT ? Ordered By: SOLANGE MEI ? MR#: [id number] ?LOC: ??[facility] ? /Sex: ??1945 (66 years), ? Male ? PROCEDURE: Body Fluid Culture Automated ?SOURCE: Pericardial Fl ? COLLECTED: 12/25/2011 20:27 ? STARTED: 12/25/2011 20:28 ? STAINS / PREPARATIONS ? Bottle Gram Stain ? Verified:12/29/19 12 18:37 ? Growth detected in anaerobic bottle. ? Gram Positive Cocci in clusters seen ? FINAL REPORT ? Final Report ? Verified:01/02/20 12 10:20 ? Coagulase negative Staphylococcus species isolated ? Isolate saved. If future testing is required, contact the Microbiology ? Outsole Splicer. ? PRELIMINARY REPORT ? Preliminary Report ? Verified:01/01/20 12 08:22 ? Coagulase negative Staphylococcus species isolated ? Susceptibility testing in progress ? Patient: ALVIN CAT ? MR#: [id number] ? SUSCEPTIBILITY RESULTS ? Coagulase negative Staphylococcus species ? GISSELL Interp ? Ampicillin ?R ? Cefazolin ? S ? Ceftriaxone ? S ? Ciprofloxacin ? S ? Clindamycin ? R ? Erythromycin ?R ? Gentamicin ?S ? Meropenem ? S ? Moxifloxacin ?S ? Oxacillin ? S ? Penicillin(1) ? R ? Trimethoprim/Sulf a ?S ? Tetracycline ?S ? Vancomycin ?S ? FOOTNOTES ? (1) ? Penicillin resistant, Nafcillin susceptible Staphylococci are resistant to ? B-lactamase labile ? Penicillins including Ampicillin and Piperacillin, but susceptible to B- ? lactamase jf Penicillins ? (Nafcillin), B-lactamase inhibitor combinations, first and second ? generation Cephalosporins including ? Cefazolin, and to Cefepime and [employer]. ? EDUARDO MILLENNIUM Pericardial fluid specimen (specimen) 12/25/2011 8:27 PM EDT 12/25/2011 8:27 PM EDT Narrative Resulting Agency Comment Spec In Lab Solange Mei MD MICROBIOLOGY - GENER AL ORDERABLES EDUARDO [facility] * NON-FOREIGN CAR MECHANIC FINAL REPORT (12/25/2011 7:06 PM EDT) Non-Electronic Publications Specialist Final Report ? [facility] ? Provider: ?? [facility], ?Pt. Name: ?? ALVIN CAT ?ROSA Payton ? Acc #: ?[id number] ?Pt. ? Col Date: ?? 12/25/2011 ? /Sex: ?1945,(66 years),Male ? Rec Date: ?? 12/25/2011 ? LOC: ?[facility] ? CYTOPATHOLOGY: ??NGYN ? ---Adequacy--- ? Specimen submitted is satisfactory. ? ---Cytopathologic Diagnosis--- ? See Comment ? 12/27/11 ?Screened by: ? LMY ? Rescreened by: ?? EJG,EJG ? 12/29/11 ?Verified by: ? Toribio Reyna MD ?Cytopathologist ?(Electronic Signature) ? ---Comment--- ? Pericardial fluid (pericardiocentesis): ? Lymphocyte-rich effusion. ? Numerous small lymphocytes are present. No cytologically malignant cells ? are noted. ? The differential includes - but is not limited to - ??tuberculosis or a ? lymphoproliferative disorder. ? (Cell block correlates.) ? ---Clinical Information--- ? Specimen Source: ?Pericardial fluid (pericardiocentesis) ? Pertinent Clinical Data and Significant Therapy: ?Large pericardial effusion ? Clinical Impression: ?Pericardial tamponade ? Pertinent Radiologic Findings: ?(none provided) ? Gross Description: ? [facility] ? Provider: ?? [facility], ?Pt. Name: ?? ALVIN CAT ?ROSA Payton ? Acc #: ?[id number] ?Pt. ? Col Date: ?? 12/25/2011 ? /Sex: ?1945,(66 years),Male ? Rec Date: ?? 12/25/2011 ? LOC: ?[facility] ? CYTOPATHOLOGY: ??NGYN ?Received fresh, approximately 100 ml. total volume of cloudy, bloody ? fluid. ?Total Preparation: Liquid Based Prep 1; Cell Block 1. [facility] 12/25/2011 7:06 PM EDT Rosa Bess MD PATHOLOGY/C YTOLOGY ORDERABLES EDUARDO DIAZ * CYTOMEGALOVIRUS CULTURE (12/25/2011 7:03 PM EDT) Cytomegalovirus Culture ? Patient Name: ALVIN CAT ? Ordered By: SOLANGE MEI ? MR#: [id number] ?LOC: ??[facility] ? /Sex: ??1945 (66 years), ? Male ? PROCEDURE: Cytomegalovirus Culture ?SOURCE: Pericardial Fl ? COLLECTED: 12/25/2011 19:03 ? STARTED: 12/25/2011 19:04 ? FINAL REPORT ? Final Report ? Verified:12/31/19 12 11:15 ? No Cytomegalovirus isolated in cell culture ? PRELIMINARY REPORT ? Preliminary Report ? Verified:12/27/19 12 10:02 ? No Cytomegalovirus isolated in cell culture to date ? Culture in progress. ? Cytomegalovirus Culture ? Interpretive Results ? This test was developed and its performance determined by the [facility] Dept. of ? Pathology, Clinical ? Laboratory. ??It has not been cleared or approved by the U.S. Food and Drug ? Administration. ??The FDA has ? determined that such clearance or approval is not necessary. ? This test is used for clinical purposes. ? EDUARDO DIAZ Pericardial fluid specimen (specimen) 12/25/2011 7:03 PM EDT 12/25/2011 7:04 PM EDT Narrative Resulting Agency Comment Spec In Lab Solange Mei MD MICROBIOLOGY - GENER AL ORDERABLES [facility] * AFB CULTURE (12/25/2011 7:03 PM EDT) Acid Fast Bacilli Culture ? Patient Name: ALVIN CAT ? Ordered By: SOLANGE MEI ? MR#: [id number] ?LOC: ??[facility] ? /Sex: ??1945 (66 years), ? Male ? PROCEDURE: Acid Fast Bacilli Culture ?SOURCE: Pericardial Fl ? COLLECTED: 12/25/2011 19:03 ? STARTED: 12/25/2011 19:03 ? STAINS / PREPARATIONS ? Acid Fast Stain Report ? Verified: 20:52 ? No Acid Fast Bacilli seen ? FINAL REPORT ? Final Report ? Verified: 09:53 ? No Acid Fast Bacilli isolated ? PRELIMINARY REPORT ? Preliminary Report ? Verified: 14:01 ? No acid fast bacilli isolated at 7 weeks. ? EDUARDO DIAZ Pericardial fluid specimen (specimen) 12/25/2011 7:03 PM EDT 12/25/2011 7:03 PM EDT Narrative Resulting Agency Comment Spec In Lab Solange Mei MD MICROBIOLOGY - GENER AL ORDERABLES EDUARDO DIAZ * FUNGAL STAIN (12/25/2011 7:02 PM EDT) Calcofluor White Stain ? Patient Name: ALVIN CAT ? Ordered By: SOLANGE MEI ? MR#: [id number] ?LOC: ??[facility] ? /Sex: ??1945 (66 years), ? Male ? PROCEDURE: Calcofluor White Stain ?SOURCE: Pericardial Fl ? COLLECTED: 12/25/2011 19:02 ? STARTED: 12/25/2011 19:02 ? STAINS / PREPARATIONS ? Calcofluor Stain Report ? Verified: 012 23:23 ? Calcofluor White Preparation: Negative ? CERCAMILA MILLENNIUM Pericardial fluid specimen (specimen) 12/25/2011 7:02 PM EDT 12/25/2011 7:02 PM EDT Narrative Resulting Agency Comment Spec In Lab Solange Mei MD MICROBIOLOGY - GENER AL ORDERABLES EDUARDO DIAZ * FUNGUS CULTURE (12/25/2011 7:02 PM EDT) Fungus Culture ? Patient Name: ALVIN CAT ? Ordered By: SOLANGE MEI ? MR#: [id number] ?LOC: ??[facility] ? /Sex: ??1945 (66 years), ? Male ? PROCEDURE: Fungus Culture ?SOURCE: Pericardial Fl ? COLLECTED: 12/25/2011 19:02 ? STARTED: 12/25/2011 19:02 ? FINAL REPORT ? Final Report ? Verified:2011 07:18 ? No Fungus isolated ? PRELIMINARY REPORT ? Preliminary Report ? Verified:2011 09:12 ? No Fungus isolated to date ? EDUARDO MILLENNIUM Pericardial fluid specimen (specimen) 12/25/2011 7:02 PM EDT 12/25/2011 7:02 PM EDT Narrative Resulting Agency Comment Spec In Lab Solange Mei MD MICROBIOLOGY - GENER AL ORDERABLES [facility] * ANAEROBIC CULTURE (12/25/2011 7:02 PM EDT) Anaerobic Culture ? Patient Name: ALVIN CAT ? Ordered By: SOLANGE MEI ? MR#: [id number] ?LOC: ??[facility] ? /Sex: ??1945 (66 years), ? Male ? PROCEDURE: Anaerobic Culture ?SOURCE: Pericardial Fl ? COLLECTED: 12/25/2011 19:02 ? STARTED: 12/25/2011 19:02 ? FINAL REPORT ? Final Report ? Verified:2011 13:15 ? No anaerobic organisms isolated ? PRELIMINARY REPORT ? Preliminary Report ? Verified:2011 10:20 ? No anaerobic organisms isolated to date ? [facility] Pericardial fluid specimen (specimen) 12/25/2011 7:02 PM EDT 12/25/2011 7:02 PM EDT Narrative Resulting Agency Comment Spec In Lab Solange Mei MD MICROBIOLOGY - GENER AL ORDERABLES EDUARDO DIAZ * BODY FLUID CULTURE (12/25/2011 7:02 PM EDT) Body Fluid Culture ? Patient Name: ALVIN CAT ? Ordered By: SOLANGE MEI ? MR#: [id number] ?LOC: ??[facility] ? /Sex: ??1945 (66 years), ? Male ? PROCEDURE: Body Fluid Culture ?SOURCE: Pericardial Fl ? COLLECTED: 12/25/2011 19:02 ? STARTED: 12/25/2011 19:02 ? STAINS / PREPARATIONS ? Gram Stain Report ? Verified:12/25/19 12 20:16 ? Cytocentrifuge Gram Stain performed ? No WBC's seen. ? No microorganisms seen. ? FINAL REPORT ? Final Report ? Verified:12/29/19 12 09:29 ? No growth ? PRELIMINARY REPORT ? Preliminary Report ? Verified:12/26/19 12 07:48 ? No growth to date. ? CERNER MILLENNIUM Pericardial fluid specimen (specimen) 12/25/2011 7:02 PM EDT 12/25/2011 7:02 PM EDT Narrative Resulting Agency Comment Spec In Lab Solange Mei MD MICROBIOLOGY - GENER AL ORDERABLES Performing Organization Address City/[facility]/ZIP Co de Phone Number EDUARDO PICKENSIUM * BODY FLUID HOLD (12/25/2011 6:15 PM EDT) HOLD, FLD Pericardial fl CERNE R FLEXENNIUM Body fluid specimen (specimen) 12/25/2011 6:15 PM EDT 12/25/2011 7:19 PM EDT Solange Mei MD BODY FLUIDS AND STOO LS ORDERABLES Performing Organization Address [facility] Co de Phone Number [facility] * BODY FLUID MISCELLANEOUS (12/25/2011 6:15 PM EDT) Misc BF Result Not Perf CERNE R FLEXENNIUM Comment:Specimen type is sotero cceptable Misc BF Type Pericardial fl CE RNER FLEXENNIUM Body fluid specimen (specimen) 12/25/2011 6:15 PM EDT 12/25/2011 7:19 PM EDT Narrative Resulting Agency Comment Spec In Lab Solange Mei MD BODY FLUIDS AND STOO LS ORDERABLES Performing Organization Address [facility] Co de Phone Number [facility] * MISCELLANEOUS LAB REQUEST (12/25/2011 6:15 PM EDT) Label Request received in lab. EDUARDO PICKENSIUM Specimen of unknown material (specimen) 12/25/2011 6:15 PM EDT 12/25/2011 7:14 PM EDT Solange Mei MD LAB SEND OUT ORDERAB LES Performing Organization Address City/[facility]/ZIP Co de Phone Number [facility] * Protein Level Body Fluid (12/25/2011 6:15 PM EDT) Protein, Fluid 4.8 gm/dL [facility] Comment: Reference range: ??Transudates ??< 3.0 gm/dL ?Exudates ? > 3.0 gm/dL No reference range is available for the specimen type submitted. ??The performance of this assay for the submitted type has not been validated and results should be interpreted accordingly and with regard to the patient's clinical status. Prot, Fld Type Pericardial fl CERNER MILLENNIUM Body fluid specimen (specimen) 12/25/2011 6:15 PM EDT 12/25/2011 7:12 PM EDT Narrative Resulting Agency Comment Spec In Lab Solange Mei MD BODY FLUIDS AND STOO LS ORDERABLES Performing Organization Address [facility] Co de Phone Number [facility] * Lactate Dehydrogenase Body Fluid (12/25/2011 6:15 PM EDT) Lactate Dehydrogenase, Fluid >2500 unit/L [facility] Comment: No reference range is available for the specimen type submitted. ??The performance of this assay for the submitted type has not been validated and results should be interpreted accordingly and with regard to the patient's clinical status. LDH, Fld Type Pericardial fl C ERNER MILLENNIUM Body fluid specimen (specimen) 12/25/2011 6:15 PM EDT 12/25/2011 7:12 PM EDT Narrative Resulting Agency Comment Spec In Lab Solange Mei MD BODY FLUIDS AND STOO LS ORDERABLES Performing Organization Address [facility] Co de Phone Number [facility] * Glucose Level Body Fluid (12/25/2011 6:15 PM EDT) Glucose, Fluid 61 mg/dL CERME R MILLENNIUM Comment: No reference range is available for the specimen type submitted. ??The performance of this assay for the submitted type has not been validated and results should be interpreted accordingly and with regard to the patient's clinical status. Gluc, Fld Type Pericardial fl CERNER MILLENNIUM Body fluid specimen (specimen) 12/25/2011 6:15 PM EDT 12/25/2011 7:12 PM EDT Narrative Resulting Agency Comment Spec In Lab Solange Mei MD BODY FLUIDS AND STOO LS ORDERABLES Performing Organization Address [facility] Co de Phone Number [facility] * Cholesterol Level Body Fluid (12/25/2011 6:15 PM EDT) Cholesterol, Fluid 97 mg/dL [facility] Comment: No reference range is available for the specimen type submitted. ??The performance of this assay for the submitted type has not been validated and results should be interpreted accordingly and with regard to the patient's clinical status. Chol, BF Type Pericardial fl C ERNER MILLENNIUM Body fluid specimen (specimen) 12/25/2011 6:15 PM EDT 12/25/2011 7:12 PM EDT Narrative Resulting Agency Comment Spec In Lab Solangekatie Mei MD BODY FLUIDS AND STOO LS ORDERABLES Performing Organization Address [facility] Co de Phone Number [facility] * Albumin Level Body Fluid (12/25/2011 6:15 PM EDT) Albumin, Fluid 3.3 gm/dL CERME R MILLENNIUM Comment: In the evaluation of ascites, a serum (or plasma) ascites albumin gradient equal to or greater than 1.1 g/dL is usually associated with portal hypertension. ??A gradient less than 1.1 g/dL is usually seen in patients who do not have portal hypertension. No reference range is available for the specimen type submitted. ??The performance of this assay for the submitted type has not been validated and results should be interpreted accordingly and with regard to the patient's clinical status. Albumin, Fld Type Pericardial fl CERNER MILLENNIUM Body fluid specimen (specimen) 12/25/2011 6:15 PM EDT 12/25/2011 7:12 PM EDT Narrative Resulting Agency Comment Spec In Lab Solange S Mei MD BODY FLUIDS AND STOO LS ORDERABLES CERNER MILLENNIUM * Hematocrit Body Fluid (12/25/2011 6:15 PM EDT) HCT BF Type Pericardial fl CER NER MILLENNIUM Hematocrit, Fld 5.5 % CERN ER MILLENNIUM Comment:A HCT of 1% correspo nds to RBC of 100,000/ul Body fluid specimen (specimen) 12/25/2011 6:15 PM EDT 12/25/2011 7:02 PM EDT Narrative Resulting Agency Comment Spec In Lab Solange Mei MD BODY FLUIDS AND STOO LS ORDERABLES Performing Organization Address [facility] Co de Phone Number CERNER MILLENNIUM * Cell Count Body Fluid (12/25/2011 6:15 PM EDT) Body Fluid Source Pericardial fl CERNER MILLENNIUM Color, Fld Red CERNER MILLENNIUM Appearance, Fld Cloudy CERN ER MILLENNIUM Nucl Cell BF Ct 14,284 /mcl CERN ER MILLENNIUM Comment: If Nucleated Cell Count equals zero, No Scan or Differential will be performed. If Nucleated Cell Count equals 1-5, Smear is scanned but no results are reported unless abnormalities are seen. If Nucleated Cell Count equals 6 or greater, Differential will be reported. Neutrophil BF 4 % CERNER MILLENNIUM Lymphocyte BF 91 % CERNER MILLENNIUM Macrophage BF 5 % CERNER MILLENNIUM Tot Diff Ct BF 200 Cells CERNE R MILLENNIUM Body fluid specimen (specimen) 12/25/2011 6:15 PM EDT 12/25/2011 7:02 PM EDT Narrative Resulting Agency Comment Spec In Lab Solange Mei MD BODY FLUIDS AND STOO LS ORDERABLES Performing Organization Address City/[facility]/ZIP Co de Phone Number CERNER MILLENNIUM * Cytopathology Non-Gynecological (12/25/2011 5:40 PM EDT) AP Specimen 12/25/2011 5:40 PM EDT 12/25/2011 5:40 PM EDT Narrative HOLLINER MILLENNIUM - 12/25/2011 5:40 PM EDT Specimen requisition ordered. ??Separate Pathology report to follow Solange Mei MD PATHOLOGY/CYTOLOGY O RDERABLES Performing Organization Address City/[facility]/ZIP Co de Phone Number EDUARDO MCCORDENNIUM * RHEUMATOID FACTOR, QUANT (12/25/2011 4:07 PM EDT) Rheumatoid Factor 10 <=14 IU/mL CERNER MILLENNIUM Blood specimen (specimen) 12/25/2011 4:07 PM EDT 12/25/2011 6:13 PM EDT Narrative Resulting Agency Comment Spec In Lab Solange Mei MD CHEMISTRY ORDERABLES Performing Organization Address [facility] Co de Phone Number EDUARDO PICKENSIUM * (ABNORMAL) LACTATE DEHYDROGENASE (12/25/2011 4:07 PM EDT) Lactate Dehydrogenase 271(H) 110 - 220 unit/L EDUARDO MCCORDENNIUM Blood specimen (specimen) 12/25/2011 4:07 PM EDT 12/25/2011 4:19 PM EDT Narrative Resulting Agency Comment Spec In Lab Solange Mei MD CHEMISTRY ORDERABLES Performing Organization Address [facility] Co de Phone Number EDUARDO PICKENSIUM * (ABNORMAL) DIFFERENTIAL, AUTOMATED (12/25/2011 4:07 PM EDT) Neutrophil % 80.6(H) 34.0 - 71.0 % CERNER MILLENNIUM Neutrophil Absolute 5.46 1.50 - 6.30 x10(3)/mc L CERNER MILLENNIUM Lymph % 10.2(L) 19.0 - 53.0 % CERNER MILLENNIUM Lymphocytes Abs 0.7(L) 1.0 - 3.6 x10(3)/mc L CERNER MILLENNIUM Monocyte % 7.5 4.0 - 13.0 % CERNER MILLENNIUM Monocyte Abs 0.5 0.2 - 1.0 x10(3)/mc L CERNER MILLENNIUM Eos % 1.3 0.0 - 7.0 % CERNER MILLENNIUM Eosinophils Abs 0.1 0.0 - 0.5 x10(3)/mc L CERNER MILLENNIUM Basophil % 0.3 0.0 - 2.0 % CERNER MILLENNIUM Baso Absolute 0.0 0.0 - 0.2 x10(3)/mc L CERNER MILLENNIUM Immature Gran % 0.10 0.00 - 0.66 % CERNER MILLENNIUM Comment: Immature granulocytes(IG's)percentage and absolute count will include metamyelocytes, myelocytes, and promyelocytes. Blood smears from CBCs yielding IG's will be scanned manually for concordance. If this scan disagrees with the automated IG or if promyelocytes are noted, a manual differential will be performed. Immature Gran Absolute 0.01 0.00 - 0.05 x10(3)/mc L CERCAMILA MCCORDENNIUM Blood specimen (specimen) 12/25/2011 4:07 PM EDT 12/25/2011 4:16 PM EDT Solange Mei MD HEMATOLOGY ORDERABLE S EDUARDO DIAZ * DNA Antibody (Double-Stranded) (12/25/2011 4:07 PM EDT) DNA Ab (DS) Neg Neg EDUARDO PICKENSIUM Blood specimen (specimen) 12/25/2011 4:07 PM EDT 12/26/2011 8:18 AM EDT Narrative Resulting Agency Comment Spec In Lab Solange Mei MD LAB SEND OUT ORDERAB LES EDUARDO PICKENSIUM * TSH (12/25/2011 4:07 PM EDT) Thyroid Stimulating Hormone 1.24 0.27 - 4.20 mcIU/mL EDURADO MCCORDENNIUM Blood specimen (specimen) 12/25/2011 4:07 PM EDT 12/25/2011 4:16 PM EDT Narrative Resulting Agency Comment Spec In Lab Solange Mei MD CHEMISTRY ORDERABLES Performing Organization Address [facility] Co de Phone Number EDUARDO PICKENSIUM * (ABNORMAL) APTT (12/25/2011 4:07 PM EDT) Partial Thromboplastin Time 36(H) 25 - 35 sec CERCAMILA MILLENNIUM Comment: Recommended therapeutic PTT range for full dose unfractionated heparin is 80-114 seconds. Blood specimen (specimen) 12/25/2011 4:07 PM EDT 12/25/2011 4:16 PM EDT Narrative Resulting Agency Comment Spec In Lab Solange Mei MD HEMATOLOGY ORDERABLE S Performing Organization Address [facility] Phone Number EDUARDO PICKENSIUM * Prothrombin Time (12/25/2011 4:07 PM EDT) Prothrombin Time 14.3 11.9 - 14.7 sec CERCAMILA MILLENNIUM Comment: [facility] Transfusion Committee Guidelines: INR less than 2.0, PTT less than OR equal to 43.5 seconds, or Fibrinogen greater than or equal to 100 mg/dl indicate adequate procoagulant activity for hemostasis in patients without underlying bleeding disorders. International Normalization Ratio 1.1 0.9 - 1.1 EDUARDO FLEXENNIUM Blood specimen (specimen) 12/25/2011 4:07 PM EDT 12/25/2011 4:16 PM EDT Narrative Resulting Agency Comment Spec In Lab Solange Mei MD HEMATOLOGY ORDERABLE S Performing Organization Address [facility] Co de Phone Number EDUARDO PICKENSIUM * CBC (with Diff) (12/25/2011 4:07 PM EDT) White Blood Cell 6.8 4.0 - 10.0 x10(3)/mcL CERNER MILLENNIUM Red Blood Cell 4.75 4.63 - 6.08 x10(6)/mcL CERNER MILLENNIUM Hemoglobin 14.4 13.7 - 17.5 gm/dL CERNER MILLENNIUM Hematocrit 41.8 40.0 - 51.0 % CERNER MILLENNIUM Mean Cell Volume 88.0 79.0 - 92.0 fL CERNER MILLENNIUM Mean Cell Hemoglobin 30.3 25.6 - 32.2 pg CERNER MILLENNIUM Mean Cell Hemoglobin Concentration 34.4 32.0 - 36.5 gm/dL CERNER MILLENNIUM Platelet 305 145 - 370 x10(3)/mcL CERNER MILLENNIUM RDW Standard Deviation 43.3 35.0 - 46.0 fL CERNER MILLENNIUM RDW coefficient of variation 13.5 10.9 - 14.4 % CERNER MILLENNIUM Mean Platelet Volume 9.6 9.0 - 12.0 fL CERNER MILLENNIUM Blood specimen (specimen) 12/25/2011 4:07 PM EDT 12/25/2011 4:16 PM EDT Narrative Resulting Agency Comment Spec In Lab Solange S Cleopatra [place] HEMATOLOGY ORDERABLE S [facility] * (ABNORMAL) BMP w/fasting Glucose (12/25/2011 4:07 PM EDT) Glucose Fasting 87 65 - 99 mg/dL CERNER MILLENNIUM Comment: ?Fasting* Glucose Interpretive Criteria Normal ?65-99 mg/dL Impaired Fasting glucose ?100-125 mg/dL Consistent with Diabetes Mellitus ? >or= 126 mg/dL *Fasting is defined as no caloric intake for at least 8 hours In the absence of unequivocal hyperglycemia a plasma glucose value of >or= 126 mg/dL should be repeated on a subsequent day. Diagnosis and Classification of Diabetes Mellitus, Position Statement from the [place] [employer]. ??Diabetes Care, Volume 33, Supplement 1, Jun 2009 Blood Urea Nitrogen 9(L) 10 - 20 mg/dL CERNER MILLENNIUM Creatinine 0.99 0.80 - 1.50 mg/dL CERNER MILLENNIUM Comment: Please note that the pediatric reference intervals supplied above were not validated at [facility]. Results from pediatric patients should be interpreted in conjunction to the patient's age, height and muscle mass. Sodium 140 135 - 145 mmol/L CERNER MILLENNIUM Potassium 3.9 3.5 - 5.0 mmol/L CERNER MILLENNIUM Comment: Please note: ??Patients with WBC >100,000 may have falsely elevated Potassium levels. ??For accurate Potassium quantification in these patients send serum separator tube (gold top) for subsequent determinations. ??Contact the Clinical Chemistry Laboratory if there are any questions. Chloride 102 98 - 107 mmol/L CERNER MILLENNIUM Carbon Dioxide 27 22 - 31 mmol/L CERNER MILLENNIUM Anion Gap 11 5 - 15 mmol/L CERNER MILLENNIUM Calcium 9.3 8.5 - 10.5 mg/dL CERNER MILLENNIUM Est Glomerular Filtration Rate >60 >=60 CERNER MILLENNIUM Comment: The National Kidney Disease Education Program (NKDEP) has recommended all laboratories report estimated GFR (eGFR) along with plasma creatinine measurements to assist you with recognition of early kidney disease. Caveats: ??Plasma creatinine should be at steady-state (unchanged within the past week). For patients multiply eGFR by 1.2. The MDRD equation was developed using patients between the ages of 18 and 70 years. ?? The MDRD equation has not been validated for patients < 18 years of age and should not be used to assess renal function in the pediatric population. ??The MDRD eGFR equation will also overestimate the true GFR of patients above the age of 70. ??This overestimation is variable but increases with age. At present, NKDEP does NOT recommend using the MDRD equation for drug dosing purposes and pharmacists should continue to use their current dosing methods. In addition, numerical eGFR values greater than 60 ml/min/1.73 square meters should be treated as > 60, and not an exact number due to greater inaccuracies at these higher values. Per NKDEP, they classify normal renal function as any GFR >60ml/min/1.73 square meters; chronic kidney disease when GFR <60, and renal failure when GFR <15. ??This calculation may not be valid for patients with atypical muscle mass (very lean or obese), acute renal failure, and in patients with diabetic kidney disease. References: http://nkdep.nih.gov/resources/NKDEP_Suggestn4Labs_0606_508.pdf http://www.kidney.org/professionals/kls/pdf/faq_gfr.pdf Isaura K, Edward NA, Charleen AK, Pancho TS, Joanie AD, José Antonio BRIAN. Relative performance of the MDRD and CKD-EPI equations for estimating glomerular filtration rate among patients with varied clinical presentations. Clin J Am Soc Nephrol;6:1963-72. Blood specimen (specimen) 12/25/2011 4:07 PM EDT 12/25/2011 4:16 PM EDT Narrative Resulting Agency Comment Spec In Lab Solange Mei MD CHEMISTRY ORDERABLES Performing Organization Address City/[facility] Co de Phone Number [place] [facility] * EKG 12 Lead (12/25/2011 4:01 PM EDT) Ventricular rate 91 BPM MUSE SYSTEM Atrial Rate 91 BPM MUSE SYSTEM P-R Interval 148 ms MUSE SYSTEM QRS Duration 102 ms MUSE SYSTEM Q-T Interval 352 ms MUSE SYSTEM QTC Calculated (Bezet) 432 ms MUSE SYSTEM Calculated P [place] 57 degrees MUSE SYSTEM Calculated R [place] -3 degrees MUSE SYSTEM Calculated T [place] 107 degrees MUSE SYSTEM INTERPRETATION Normal sinus rhythm Nonspecific T wave abnormality Abnormal ECG When compared with ECG of 12-APR-2010 13:20, Nonspecific T wave abnormality Present Confirmed by MD Agustina, Don ([id number]) on 12/25/2011 5:09:05 PM MUSE SYSTEM 12/25/2011 4:01 PM EDT 12/25/2011 5:09 PM EDT Solange Mei MD ECG ORDERABLES Performing Organization Address City/[facility]/ZIP Co de Phone Number MUSE SYSTEM * Echo Transthoracic (Complete) (12/25/2011 3:52 PM EDT) EF 65 HEART[facility] SYSTEM Anatomical Region Laterality Modality Other 12/25/2011 Narrative 12/25/2011 4:27 PM EDT Procedure: ? Transthoracic Echocardiogram Patient: ? PODHURST ALVIN L ?(Age): 1945(66) Med Rec#: ?[id number] ? Sex: ?M ? Site Loc[place] ? Ht / Wt: ??180(cm)/94(kg) Pt. Loc: ? Echo Lab ? BSA: ?2.17 Study Date: ?12/25/2011 ? Pt. Type: Inpatient Tape: ? Referring: Sammy Balbuena Referring: MARLO WORKMAN E Mill Machinist: Devaughn Ahuja MS, RUST Mill Machinist 2: Kurt Hernández ([id number]) Diagnosis: ??Pericardial effusion (423.9) CPT Code(s): ??Echo Full (51131), ??Spectral Doppler (06386), ??Color Doppler (87237), Indication(s): ??Pericardial effusion, R/O Rhythm: HR ?BP ?161/80 ?? SUMMARY: 1. There is a moderate to large circumferential pericardial effusion. There are echo findings consistent with tamponade physiology. What is likely a fibrinous strand is noted in the pericardial space lateral to the left atrium. (Dr. Hernández informed of these findings.) 2. Left ventricular chamber size, wall thickness, global and segmental systolic function are within normal limits. Ejection fraction is estimated to be 65%. 3. Right ventricular chamber size, wall thickness, and systolic function are within normal limits. 4. There is no hemodynamically significant valve disease. 5. See remainder of report for additional findings. FINDINGS: Left Ventricle ?Left ventricular chamber size, wall thickness, global and segmental systolic function are within normal limits. Ejection fraction is estimated to be 65%. ?There are no left ventricular segmental wall motion abnormalities. ?Doppler assessment is consistent with normal left sided filling pressure. Left Atrium ?The left atrium is mildly dilated. Right Ventricle ?Right ventricular chamber size, wall thickness, and systolic function are within normal limits. ?No pulmonary hypertension is noted. Right Atrium ?The right atrium is normal [...] valve appears normal in structure and function. Pericardium ?There is a large circumferential pericardial effusion. ?Right ventricular diastolic collapse is present. ?Right atrial collapse is present. ?Left atrial collapse is present. ?The study is consistent with cardiac tamponade. ?There is a mass visualized on the pericardium. Aorta ?The aortic root is normal in size. ?The ascending aorta is normal in size. Pulmonary Artery ?The main pulmonary artery appears normal. Venous ?The inferior vena cava appears normal in size. [...] ? Mid-Inferior ?Normal ? Mid-Inferoseptal ?Normal ? [place]-Septal ? Normal ? [place]-Anterior ? Normal ? [place]-Lateral ?Normal ? [place]-Inferior ? Normal ? [place]-Tip ?Normal ? Chambers ?Value ?Units (Range) ? LV EF Est ? 65 ? % (55 to 80) ? IVSd 2D ? 0.8 ?cm ? LVIDd 2D ?5.5 ?cm ? PWd 2D ?0.8 ?cm ? LVIDs 2D ?2.8 ?cm ? LVFS 2D ? 49 ? % ? LA area ? 25 ? cm2 (<21) ? RA area ? 13 ? cm2 (<18) ? Ao root ? 3.2 ?cm (2.1 to 3.6) ? Asc Ao ?3.4 ?cm (2 to 3.5) ? Mitral Valve ?Value ?Units (Range) ? E peak ?0.57 ? m/sec ? E/A ratio ? 1.2 ?ratio ? MVDT ?173 ?msec ? E1 ?0.11 ? m/sec ? E/E1 ?5.2 ?ratio ? Tricuspid/Pulmonic Valves ?Value ?Units (Range) ? TR peak ree ? 2.5 ?m/sec ? RAP ? 8 ?mmHg ? RVSP/PASP ? 33 ? mmHg ? This report has been electronically signed by: Devang Burns MD ? 12/25/2011 16:27:05 Images reviewed and interpretation verified [facility] Cardiac Ultrasound Laboratory Procedure Note Devang Burns MD - 12/25/2011 Procedure: Transthoracic Echocardiogram Patient: LORIN GREGORIO(Age): 1945(66) Med Rec#: [id number] Sex: M [place] [facility] Ht / Wt: 180(cm)/94(kg) Pt. Loc: Echo Lab BSA: 2.17 Study Date: 12/25/2011 Pt. Type: Inpatient Tape: Referring: Sammy Balbuena Referring: MARLO WORKMAN E Mill Machinist: Devaughn Ahuja MS, RUST Mill Machinist 2: Kurt Hernández ([id number]) Diagnosis: Pericardial effusion (423.9) CPT Code(s): Echo Full (99792), Spectral Doppler (99647), Color Doppler (05187), Indication(s): Pericardial effusion, R/O Rhythm: HR BP 161/80 SUMMARY: 1. There is a moderate to large circumferential pericardial effusion. There are echo findings consistent with tamponade physiology. What is likely a fibrinous strand is noted in the pericardial space lateral to the left atrium. (Dr. Hernández informed of these findings.) 2. Left ventricular chamber size, wall thickness, global and segmental systolic function are within normal limits. Ejection fraction is estimated to be 65%. 3. Right ventricular chamber size, wall thickness, and systolic function are within normal limits. 4. There is no hemodynamically significant valve disease. 5. See remainder of report for additional findings. FINDINGS: Left Ventricle Left ventricular chamber size, wall thickness, global and segmental systolic function are within normal limits. Ejection fraction is estimated to be 65%. There are no left ventricular segmental wall motion abnormalities. Doppler assessment is consistent with normal left sided filling pressure. Left Atrium The left atrium is mildly dilated. Right Ventricle Right ventricular chamber size, wall thickness, and systolic function are within normal limits. No pulmonary hypertension is noted. Right Atrium The right atrium is normal [...] valve appears normal in structure and function. Pericardium There is a large circumferential pericardial effusion. Right ventricular diastolic collapse is present. Right atrial collapse is present. Left atrial collapse is present. The study is consistent with cardiac tamponade. There is a mass visualized on the pericardium. Aorta The aortic root is normal in size. The ascending aorta is normal in size. Pulmonary Artery The main pulmonary artery appears normal. Venous The inferior vena cava appears normal in size. There is a greater than 50% respiratory change in the inferior vena cava dimension. [facility], spectral Doppler and color Doppler performed. Wall Motion: Segment Name Rest Base-Anteroseptal Normal Base-Anterior Normal Base-Anterolateral Normal Base-Posterolateral Normal Base-Inferior Normal Base-Inferoseptal Normal Mid-Anteroseptal Normal Mid-Anterior Normal Mid-Anterolateral Normal Mid-Posterolateral Normal Mid-Inferior Normal Mid-Inferoseptal Normal [place]-Septal Normal [place]-Anterior Normal [place]-Lateral Normal [place]-Inferior Normal [place]-Tip Normal Chambers Value Units (Range) LV EF Est 65 % (55 to 80) IVSd 2D 0.8 cm LVIDd 2D 5.5 cm PWd 2D 0.8 cm LVIDs 2D 2.8 cm LVFS 2D 49 % LA area 25 cm2 (<21) RA area 13 cm2 (<18) Ao root 3.2 cm (2.1 to 3.6) Asc Ao 3.4 cm (2 to 3.5) Mitral Valve Value Units (Range) E peak 0.57 m/sec E/A ratio 1.2 ratio MVDT 173 msec E1 0.11 m/sec E/E1 5.2 ratio Tricuspid/Pulmonic Valves Value Units (Range) TR peak ree 2.5 m/sec RAP 8 mmHg RVSP/PASP 33 mmHg This report has been electronically signed by: Devang Burns MD 12/25/2011 16:27:05 Images reviewed and interpretation verified [facility] Cardiac Ultrasound Laboratory Solange Mei MD ECHO ORDERABLES documented in this encounter Visit Diagnoses Not on filedocumented in this encounter Administered Medications Inactive Administered Medications - up to 3 most recent administrations Medication Order MAR Action Action Date Dose Rate Site fentaNYL 50mcg/mL injection ONCE PRN, Starting on Fri12/25/11 at 1801, Until Fri12/27/11 at 1613, Pain, Intra-Operative (Intra-Procedure), Routine Given 12/25/2011 6:01 PM EDT 25 mcg lidocaine (PF) (XYLOCAINE) 10 mg/mL (1 %) injection ONCE PRN, Starting on Fri12/25/11 at 1743, Until Fri12/27/11 at 1613, Intra-Operative (Intra-Procedure), Routine Given 12/25/2011 6:01 PM EDT 10 mg Given 12/25/2011 5:43 PM EDT 20 mg midazolam (VERSED) injection ONCE PRN, Starting on Fri12/25/11 at 1801, Until Fri12/27/11 at 1613, Sleep, EP (Intra-Procedure), Routine Given 12/25/2011 6:01 PM EDT 1 mg documented in this encounter Active and Recently Administered Medications Times are shown in EDT. Scheduled Medication Order 12/25/2011 12/26/2011 12/27/2011 acetaminophen (TYLENOL) tablet 1,000 mg (COMPLETED) 1,000 mg, Oral, ONCE, 1 dose, On Fri12/25/11 at 2100, Maximum dose of acetaminophen is 4000 mg from all sources in 24 hours., Routine 2108 (Given - Provider: Ale Marie, ELIZABETH) sodium chloride 0.9 % flush 5 mL (CANCELED) 5 mL, Intravenous, EVERY 12 HOURS, First dose on Fri12/25/11 at 1700, Until Discontinued 1700 (Given - Provider: Devang Barroso RN) 0500 (Given - Provider: Ale Marie, ELIZABETH)1700 (Given - Provider: Tracy Ron RN - Comment: continuous infusion normal saline) 0530 (Given - Provider: Crystal Carbone RN) sodium chloride 0.9% 500 mL IV bolus (COMPLETED) Intravenous, ONCE, 1 dose, On Shazia 12/26/11 at 0700 0700 (Given by Other - Provider: Wanda Rock, ELIZABETH) Continuous Medication Order 12/25/2011 12/26/2011 12/27/2011 sodium chloride 0.9% infusion () 200 mL/hr, Intravenous, CONTINUOUS, Starting on Shazia 12/26/11 at 1600, Until Shazia 12/26/11 at 2059 1648 (New Bag - Provider: Isamar Rivas RN) PRN Medication Order 12/25/2011 12/26/2011 12/27/2011 amitriptyline (ELAVIL) tablet 50 mg (CANCELED) 50 mg, Oral, NIGHTLY PRN, Starting on Fri12/25/11 at 2209, Until Fri12/27/11 at 0035, insomnia, Routine 0000 (Given - Provider: Ale Marie RN)2206 (Given - Provider: Tracy Ron RN) fentaNYL 50mcg/mL injection (CANCELED) ONCE PRN, Starting on Fri12/25/11 at 1801, Until Fri12/27/11 at 1613, Pain, Intra-Operative (Intra-Procedure), Routine 1801 (Given - Provider: Belkis Tineo RN) gadopentetate dimeglumine (MAGNEVIST) injection 19 mL (COMPLETED) 19 mL (0.2 mL/kg/dose ? 93.8 kg), Intravenous, ONCE PRN, Per Protocol, Starting on Fri12/27/11 at 0743, 1 dose, Until Fri12/27/11 at 0743 0743 (Given - Provider: Gabbi Doshi) hydrocortisone 0.5 % cream (CANCELED) Topical, 2 TIMES DAILY PRN, PRN rectal itching, Starting on Fri12/26/11 at 1325, Until Fri12/27/11 at 1613 1456 (Given - Provider: Wanda Rock RN) iohexol (OMNIPAQUE) radiology oral prep (50 mL of oral contrast) 250 mL (COMPLETED) 250 mL, Oral, EVERY 1 HOUR PRN, Procedure Prep, Starting on Fri12/26/11 at 1506, 4 doses, Until Fri12/26/11 at 1717, Mix 1 bottle (50 mL) of Omnipaque 350 with 1 liter (1,000 mL) non-carbonated beverage (preferably water). Close cover and shake vigorously and then refrigerate, if desired. Dispose of any excess preparation in a sink. Properly dispose of container. Administration: (1) 8-ounce cup of contrast 3 hours before scan (1) 8-ounce cup of contrast 2 hours before scan (1) 8-ounce cup of contrast 1 hour before scan (1) 8-ounce cup of contrast 20 minutes before scan as tolerated 1450 (Given - Provider: Wanda Rock, RN)1540 (Given - Provider: Wanda Rock, RN)1645 (Given - Provider: Wanda Rock, ELIZABETH)1717 (Given - Provider: Tracy Ron RN) lidocaine (PF) (XYLOCAINE) 10 mg/mL (1 %) injection (CANCELED) ONCE PRN, Starting on Fri12/25/11 at 1743, Until Fri12/27/11 at 1613, Intra-Operative (Intra-Procedure), Routine 1743 (Given - Provider: Devang Cohen MD)1801 (Given - Provider: Devang Cohen MD) midazolam (VERSED) injection (CANCELED) ONCE PRN, Starting on Fri12/25/11 at 1801, Until Fri12/27/11 at 1613, Sleep, EP (Intra-Procedure), Routine 1801 (Given - Provider: Belkis Tineo RN) documented in this encounter Care Teams Deburrer Machine Relationship Specialty Start Date End Date Diana Booker MD [address] [place] [address] PCP - General 05/22/10 09/11/17 documented as of this encounter
--- OUTSIDE RECORDS SUMMARY | 2024-03-12 00:12 | XMS_ITS | Encounter Summary ---
Author Organization [facility] Address [facility] [place] [address] Care Team Providers Care Automation Qa Analyst Name Role Phone Diana Weaver MD Primary Care Provider [phone] Encounter Details Date Type Department Care Team (Latest Contact Info) Description 05/16/2011 7:50 AM EST - 05/16/2011 11:59 PM EST Hospital Encounter XRay at [address] [place] [address] S/P shoulder surgery Social History Tobacco Use Types Packs/Day Years [...] XR KNEE AP AND LAT BILAT Routine 05/16/2011 8:38 AM EST S/P shoulder surgery documented in this encounter Results * XR knee bilateral1 or 2 view (05/16/2011 8:38 AM EST) Anatomical Region Laterality Modality Knee Bilateral Radiographic Marsha ging 05/16/2011 8:38 AM EST Narrative 05/16/2011 2:11 PM EST KNEE, TWO VIEWS, 05/16/11: HISTORY: ??Bilateral total knee annual check. TECHNIQUE: ??Two views of both knees. COMPARISON: ??Compared to prior exam of 11/13/10. FINDINGS: ??The patient has bilateral total knees. Position and alignment are unchanged. There is no evidence of complication. There are small joint effusions bilaterally. There is a small focal lucency in the medial tibial plateau, which is unchanged. Procedure Note Rachael Maguire MD - 05/16/2011 KNEE, TWO VIEWS, 05/16/11: HISTORY: Bilateral total knee annual check. TECHNIQUE: Two views of both knees. COMPARISON: Compared to prior exam of 11/13/10. FINDINGS: The patient has bilateral total knees. Position and alignmentare unchanged. There is no evidence of complication. There are small joint effusions bilaterally. There is a small focal lucency in the medial tibial plateau, which is unchanged. Oliver Carter MD IMG DX ORDERABLES documented in this encounter Visit Diagnoses Diagnosis S/P shoulder surgery Other postprocedural status documented in this encounter Care Teams Automation Qa Analyst Relationship Specialty Start Date End Date Diana Weaver MD [address] [place] [address] PCP - General 05/22/10 09/11/17 documented as of this encounter
--- OUTSIDE RECORDS SUMMARY | 2024-03-12 00:12 | XMS_ITS | Encounter Summary ---
Author Organization [facility] Address [facility] [place] [address] Care Team Providers Care Plant Chief Name Role Phone Diana Weaver MD Primary Care Provider [phone] Reason for Visit * Reason Comments Shortness of Breath Encounter Details Date Type Department Care Team (Late st Contact Info) Description 01/15/2012 3:30 PM EDT Office Visit Cardiology at [address] [address] Nic Tran II, MD [facility] [place] [address] Pericardial effusion (Primary Dx) Discharge Disposition: Home Social History [...] Progress Notes * Nic Tran II - 01/21/2012 12:16 PM EDT CHART NOTE: Patient Name: Alvin Cat ([id number]) Mr. Cat is seen in conjunction with Dr. Kurt Hernández. The patient was examined and discussed in detail with Dr. Hernández. Please refer to her note dated 01-15-2012 for a full presentation of the chief complaint, history of present illness, past medical history, current medications, current physical examination, evaluation and plans. In brief, he presented with dyspnea on exertion on December 24 and echocardiography revealed a large pericardial effusion with some evidence of tamponade. He underwent pericardiocentesis with improvement in his symptoms. There was concern about a possible malignant effusion. He had a Wells-CT scan which did not show any evidence of malignancy and the cytology was negative although consistent with a viral pericarditis. Since discharge, he has felt well and has gotten pack to his usual activities without any symptoms. His echo today showed complete resolution of the effusion and normal left ventricular function. I think the most likely diagnosis is a viral pericarditis. He did not require steroids for resolution and therefore, he would not be considered at high risk for recurrence. We are recommending that he follow-up with his PCP and with Cardiology on an???as needed?? basis; otherwise, as per Dr. Hernández???s evaluation and plans. Nic Tran MD documented in this encounter Plan of Treatment Not on file documented as of this encounter Visit Diagnoses Diagnosis Pericardial effusion- Primary Unspecified disease of pericardium documented in this encounter Care Teams Plant Chief Relationship Specialty Start Date End Date Diana Weaver MD [address] [place] [address] PCP - General 05/22/10 09/11/17 documented as of this encounter
--- OUTSIDE RECORDS SUMMARY | 2024-03-12 00:12 | XMS_ITS | Encounter Summary ---
[place] [address] Care Team Providers Care Wet Machine Cutter Name Role Phone Diana Weaver MD Primary Care Provider [phone] Reason for Referral * Physical Therapy (Routine) - Closed Specialty Diagnoses / Procedures Referred By Ronald parada Referred To Contact Physical Therapy Diagnoses Rotator cuff disorder Oliver Carter MD [facility] [place] [address] [facility] [place] [address] Referral ID Status Reason Start Date Expiration Date V isits Requested Visits Authorized [id number] Closed Evaluate and Treat 05/16/2011 11/12/2011 1 1 Reason for Visit * Reason Comments Bilateral Shoulder Pain Pain worse on th e left side Encounter Details Date Type Department Care Team (Late st Contact Info) Description 05/16/2011 8:40 AM EST Office [place] [phone] Oliver Carter MD [facility] [place] [address] Rotator cuff disorder bilateral (L>R) (Primary Dx) [...] Sign Reading Time Taken Comments Blood Pressure 124/80 05/16/2011 9:05 AM EST Pulse - - Temperature - - Respiratory Rate - - Oxygen Saturation - - Inhaled Oxygen Concentration - - Weight 95.3 kg (210 lb) 05/16/2011 9:05 AM EST Height 177.8 cm (5' 10) 05/16/2011 9:05 AM EST Body Mass Index 30.13 05/16/2011 9:05 AM EST documented in this encounter Progress Notes * Oliver Carter MD - 05/16/2011 9:46 AM EST Mr. 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 Briefly, Mr. Cat states that he noticed the onset of bilateral shoulder pain greater than three years ago, but the pain has become acutely worse over the past several months. He has undergone recent bilateral total knee replacements by Dr. Lord and Dr. Post, successfully with alleviation of pain in these areas, and this has allowed him to become more active to the point where he thinks he has stressed both shoulders more so. He describes the pain as being in the upper aspect of his arms, left greater than right, and it is especially noted at night as it keeps him awake. He has been seen in the past by Dr. Alva, in [facility], who he states performed an MRI about three years ago. By his recollection, he was told that he had partial-thickness rotator cuff tears, and it was not recommended at that time to perform any type of surgery. He was told to just use Motrin as needed, and Tylenol for pain. He has not ever gone to any type of physical therapy treatment, and has had not ever had any injections. He is here today for evaluation of his shoulders and x-rays. Past medical history is significant for arthritis in multiple areas, but most significant in his hands. He also has erectile dysfunction. His prior surgeries include a pilonidal cyst removal in 1973, herniorrhaphy in 1975, bilateral arthroscopic debridements in 1996, and then another arthroscopic debridement on the right in 2007. His knees were both [place] [facility]. Medications include ibuprofen and Tylenol. HIS ONLY ALLERGIES ARE TO PENICILLIN AND DIPHENHYDRAMINE. 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 He states he stays physically active doing this, but he also enjoys hiking, biking, and swimming. He is a nonsmoker, and drinks alcohol only occasionally. Physical exam demonstrates Mr. Cat to be a very nice gentleman, resting, in no apparent distress. He stands 5 feet 10 inches tall and weighs 210 pounds. Bilateral shoulder exams reveal full arcs of abduction, forward flexion, and internal and external rotation. He has mildly positive Mcghee-Karlo and Neer impingement signs on both sides, but the left is more uncomfortable for him than the right. He has mild tenderness at the anterolateral corner of both acromions. Strength testing is full on both sides with full strength to resisted abduction, forward flexion, internal and external rotation. He has a negative lift-off sign, but negative belly-press test. Provocative signs for biceps tendinitis are negative with negative Speed's test. Grafton's test is nontender, and he has very minimal tenderness over his AC joints bilaterally. Radiographs demonstrate some degenerative disease of both AC joints, as well as some sclerosis in the area of the greater tuberosity suggestive of impingement. His glenohumeral joints show no evidence of degenerative disease. ASSESSMENT: Bilateral rotator cuff tendinosis, shoulders. At this point, my suspicion is low for any full-thickness tear in Mr. Cat's shoulders. I do think, however, he does have rotator cuff disease, which is giving him his discomfort. I would like to start initially with a more low-grade nonoperative approach by having him seen by our therapist Leoncio Arevalo, to work on some strengthening and stretching, and then also perform a subacromial injection into his left shoulder today. This was done under sterile conditions by prepping the shoulder with DuraPrep and then using combination of 4 mL of 1% lidocaine and 40 mg of Kenalog injected into the subacromial space. He tolerated the injection well, and had some immediate relief of his discomfort. I would like to see him back for a recheck in 10 weeks' time to see how he has responded to this injection. If he is gotten a good response on the left side we may consider an injection on the right. Otherwise, we can continue with his rehab program and if he has short-term relief with the injections, but his pain persists, then we may need to consider further diagnostic evaluation before consideration of surgical treatment. documented in this encounter Plan of Treatment Scheduled Referrals Name Type Priority Associated Diagnoses Orde r Schedule REFERRAL TO PHYSICAL THERAPY Outpatient Referral Routine Rotator cuff disorder bilateral (L>R) Ordered: 05/16/2011 documented as of this encounter Visit Diagnoses Diagnosis Rotator cuff disorder bilateral (L>R)- Primary Disorders of bursae and tendons in shoulder region, unspecified documented in this encounter Administered Medications Inactive Administered Medications - up to 3 most recent administrations Medication Order MAR Action Action Date Dose Rate Site triamcinolone acetonide (KENALOG-40) injection 40 mg 40 mg, Intra-articular, ONCE, 1 dose, On Shazia 05/16/11 at 0945, Routine Given 05/16/2011 9:26 AM EST 40 mg documented in this encounter Care Teams Wet Machine Cutter Relationship Specialty Start Date End Date Diana Weaver MD [address] [place] [address] PCP - General 05/22/10 09/11/17 documented as of this encounter
--- OUTSIDE RECORDS SUMMARY | 2024-03-12 00:12 | XMS_ITS | Encounter Summary ---
Author Organization [facility] Address [facility] [place] [address] Care Team Providers Care Box Car Checker Name Role Phone Diana Weaver MD Primary Care Provider [phone] Reason for Visit * Reason Comments Bilateral Shoulder Pain Encounter Details Date Type Department Care Team (Late st Contact Info) Description 05/16/2011 8:00 AM EST Office [place] [address] Patel Arevalo, PT [facility] PHYSICAL MEDICINE & [place] [address] Diana Weaver MD [address] [place] [id number] Rotator cuff disorder bilateral (L>R) Discharge Disposition: Home Social History Tobacco Use [...] as of this encounter Progress Notes * Patel Arevalo, PT - 05/16/2011 12:52 PM EST PHYSICAL THERAPY PROGRESS NOTE: [facility] DIAGNOSIS: bilateral rotator cuff disorder, left greater than right PHYSICIAN: Oliver Carter MD. Total treatment time: 25 minutes for brief PT eval and instruction in therapeutic exercise. Total coded time: 15 minutes for instruction in therapeutic exercise. MEDICARE CERTIFICATION PERIOD: -- (one visit today, and patient will follow up with a PT closer to home) SUBJECTIVE: Patient reports bilateral shoulder pain on and off for quite some time. Patient reports that he just received an injection in this clinic by Dr. Carter for his left shoulderthat has been more painful recently. OBJECTIVE: Patient seen in the [facility] for the above diagnosis after receiving a left shoulder steroid injection. He is known to the orthopedic department in the past for bilateral total knee arthroplasties. 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 He was instructed in therapeutic exercise 15 minutes for the above diagnosis consisting of instructions in proper posture and body mechanics, stretching the posterior capsule found to be moderately tight bilaterally, left greater than right, and strengthening for his secondary scapular stabilizers and rotator cuff using red theraband in the modified position ( i.e. elbows in at the side) Brief PT eval reveals that the patient has good functional ROM CWNL and -5/5 strength with bilateral impingement signs, left greater than right shoulder. He also has moderate stiffness with cervical ROM and some mild myofascial discomfort left upper quadrant greater than right. ASSESSMENT: Patient reports improvement in his symptoms after the injection (left shoulder) today and was independent with his impingement home exercise program as instructed for ( bilateral shoulders). PLAN: D/C to home exercise program as instructed for bilateral shoulders. PT short term goals : 1. Independent in home exercise program. 2. Improve posture and body shop technician awareness. PT merchandising execution associate goals : 1. Improve strength of rotator cuff, secondary scapular stabilizers and decreased posterior capsuletightness to reduce impingement phenomena during shoulder level ADL and work activities Patient understands and agrees with our rehab plan , written home exercise program , and goals. documented in this encounter Plan of Treatment Not on file documented as of this encounter Visit Diagnoses Diagnosis Rotator cuff disorder bilateral (L>R) Disorders of bursae and tendons in shoulder region, unspecified documented in this encounter Care Teams Box Car Checker Relationship Specialty Start Date End Date Diana Weaver MD [address] [place] [id number] PCP - General 05/22/10 09/11/17 documented as of this encounter
--- OUTSIDE RECORDS SUMMARY | 2024-03-12 00:12 | XMS_ITS | Encounter Summary ---
Author Organization [facility] [place] [address] Care Team Providers Care Line Maintenance Technician Name Role Phone Diana Weaver MD Primary Care Provider [phone] Reason for Visit * Reason Comments Follow-up pericardial effusion Encounter Details Date Type Department Care Team (Late st Contact Info) Description 01/15/2012 2:10 PM EDT Office Visit Cardiology at [address] [address] Kurt Hernández MD [facility] [place] [address] Pericardial effusion (Primary Dx) Discharge Disposition: Home [...] Sign Reading Time Taken Comments Blood Pressure 128/70 01/15/2012 2:00 PM EDT Pulse 84 01/15/2012 2:00 PM EDT Temperature - - Respiratory Rate 18 01/15/2012 2:00 PM EDT Oxygen Saturation 100% 01/15/2012 2:00 PM EDT Inhaled Oxygen Concentration - - Weight 94.3 kg (208 lb) 01/15/2012 2:00 PM EDT Height 180.3 cm (5' 11) 01/15/2012 2:00 PM EDT Body Mass Index 29.01 01/15/2012 2:00 PM EDT documented in this encounter Progress Notes * Nic Tran II - 01/29/2012 8:34 AM EDT CHART NOTE: Patient Name: Alvin Cat ([id number]) Mr. Cat is seen in conjunction with [...] Hernández???s evaluation and plans. Nic Tran MD * Kurt Hernández MD - 01/15/2012 3:25 PM EDT Subjective: Patient ID: Alvin Cat is a 66 y.o. male. HPI 66 yo with no significant cardiac history, h/o asbestosis exposure 35 years ago (but no evidence ofasbestosis on CXRAYs or CT) who presents for f/u of pericardial effusion. Pt presented with evidence of tamponade physiology on echo and had pericardiocentesis with removal of 750 cc of serosanguinous fluid. Etiology was unclear and patient had extensive w/u including CT C/A/P, Cardiac MRI, w/u forinfectious causes (had 1 positive blood culture that was felt to be contaminant). Etiology was feltto be most likely viral based on negative w/u. F/u TTE on 01/02/12 and 01/15/12 showed complete resolution of effusion. Pt remained mildly tachycardic at discharge, but this has since resolved. He denies fevers, chills, SOB, CP. He feels great and is back to his regular activity schedule and has no complaints today. Review of Systems Constitutional: Negative for fever and chills. HENT: Negative for sore throat and neck pain. Eyes: Negative for pain and visual disturbance. Respiratory: Negative for cough and shortness of breath. Cardiovascular: Negative for chest pain, palpitations and leg swelling. Gastrointestinal: Negative for nausea, vomiting, diarrhea and constipation. Genitourinary: Negative for dysuria and hematuria. Musculoskeletal: Negative for myalgias and back pain. Skin: Negative for pallor and rash. Neurological: Negative for weakness and numbness. Hematological: Does not bruise/bleed easily. Psychiatric/Behavioral: Negative for agitation. The patient is not nervous/anxious. Patient Active Problem List Diagnoses ??? Pericardial effusion ??? Dilated cardiomyopathy ? [...] Erectile dysfunction ??? CIS - asbestos exposure Past Surgical History Procedure Date ??? Created by interface arthroscopic knee surgeries x3 Procedure Date: 2004 ??? Created by interface Entered not Verified Procedure Date: 04/24/2010 ??? Created by interface hernia repair Procedure Date: 1982 ??? Created by interface pilonidal cyst removal Procedure Date: 1977 History Social History ??? Marital Status: Single Spouse Name: N/A Number of Children: N/A ??? Years of Education: N/A Occupational History ??? Not on file. Social History Main Topics ??? Smoking status: Former Smoker Quit date: 03/13/1981 ??? Smokeless tobacco: Never Used ??? Alcohol Use: Yes sometimes ??? Drug Use: Not on file ??? Sexually Active: Not on file Other Topics Concern ??? Not on file Social History Narrative ??? 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 AMITRIPTYLINE 25 MG ORAL TAB Oral Take 25 mg by mouth nightly. ??? TADALAFIL 5 MG ORAL TAB Oral Take 5 mg by mouth daily. ??? CLINDAMYCIN HCL 150 MG ORAL CAP Oral Take 150 mg by mouth 2 times daily. Prior to dental procedures ??? ACETAMINOPHEN 500 MG ORAL TAB Oral Take 1,000 mg by mouth 2 times daily. ??? IBUPROFEN 200 MG ORAL TAB Oral Take 600 mg by mouth 2 times daily as needed. ??? ACYCLOVIR ORAL Oral Take 2,000 mg by mouth 2 times daily as needed. ??? SILDENAFIL 100 MG ORAL TAB Oral Take 100 mg by mouth as needed. 25 mg - 50 mg prn ??? LORATADINE 10 MG ORAL TAB Oral Take 10 mg by mouth daily. ??? GLUCOSAMINE-CHONDROITIN ORAL Oral << Patient Not Taking >> Allergies Allergen Reactions ??? Penicillins Other (See Comments) Unknown ??? Diphenhydramine Hcl Other (See Comments) causes temors Recent Review Flowsheet Data View Complete Flowsheet Oncology Vitals 01/15/2012 Weight 94.348 kg Height 180.3 cm BSA (Calculated - sq m) 2.17 BMI (Calculated) 29.1 Temp - Temp src - Pulse 84 Heart Rate Source - Resp 18 BP 128/70 SpO2 100 Oncology Vitals 01/15/2012 Height (cm) - Weight (kg) - BSA (m2) - Objective: Physical Exam Constitutional: He is oriented to person, place, and time. He appears well- developed and well-nourished. HENT: Head: Normocephalic and atraumatic. Mouth/Throat: Oropharynx is clear and moist. Eyes: Conjunctivae are normal. Pupils are equal, round, and reactive to light. Neck: Normal range of motion. Neck supple. No JVD present. Cardiovascular: Normal rate and normal heart sounds. No murmur heard. Pulmonary/Chest: Effort normal and breath sounds normal. Abdominal: Soft. Bowel sounds are normal. He exhibits no distension. Musculoskeletal: Normal range of motion. He exhibits no edema and no tenderness. Neurological: He is alert and oriented to person, place, and time. Skin: Skin is warm and dry. Psychiatric: He has a normal mood and affect. Thought content normal. Cardiac MRI: 1. Moderate pericardial effusion, with note made of two foci of adhesion of the parietal pericardium to the visceral pericardium by the RV, of doubtful clinical significance. Pericardium upper limits of normal in thickness. No evidence of constrictive or tamponade physiology. 2. Mild global hypokinesis, with calculated LV ejection fraction of 48 %. 3. Normal myocardial morphology, without abnormal delayed enhancement to suggest an infiltrative/restrictive process. ECHO 01/15/12: 1. There is no pericardial effusion. 2. [...] There is no hemodynamically significant valve disease. Assessment and Plan: 66 yo with no significant cardiac history, h/o asbestosis exposure 35 years ago (but no evidence ofasbestosis on CXRAYs or CT) who presents for f/u of pericardial effusion. 1) Pericardial effusion f/u: -pt is doing well s/p pericardiocentesis -likely viral in etiology given lymphocytosis on pericardial fluid studies -no evidence of malignancy on pericardial fluid -repeat echo with no evidence of effusion -did not require steroids during hospitalization portending lower risk of recurrence of effusion F/u with PCP and f/u with cardiology prn documented in this encounter Plan of Treatment Not on file documented as of this encounter Results * Echocardiogram limited (01/15/2012 1:43 PM EDT) EF 65 HEARTLAB SYSTEM Anatomical Region Laterality Modality Other 01/15/2012 Narrative 01/15/2012 2:16 PM EDT Procedure: ? Transthoracic Echocardiogram Patient: ? LORIN East ?(Age): 1945(66) Med Rec#: ?[id number] ? Sex: ?M ? Site Loc: ?[place] ? Ht / Wt: ??180(cm)/94(kg) Pt. Loc: ? Echo Lab ? BSA: ?2.17 Study Date: ?01/15/2012 ? Pt. Type: Outpatient Tape: ? Referring: Nic Tran Steel Worker: Lara Valerio Diagnosis:CPT Code(s): ??Color Doppler (97232), ??Doppler LTD (09708), Echo LTD (65493), Indication(s): ??Pericardial effusion, R/O Rhythm: Sinus HR ?BP ?133/80 ?? SUMMARY: 1. There is no pericardial effusion. 2. The left ventricular chamber size is normal. There is normal global left ventricular systolic function. ??Ejection fraction is estimated to be 65%. There are no left ventricular segmental wall motion abnormalities. 3. Right ventricular chamber size, wall thickness, and systolic function are within normal limits. No pulmonary hypertension is noted. 4. There is no hemodynamically significant valve disease. FINDINGS: Left Ventricle ?The left ventricular chamber size is normal. ?Left ventricular wall thickness is normal. ?There is normal global left ventricular systolic function. ??Ejection fraction is estimated to be 65%. ?There are no left ventricular segmental wall motion abnormalities. ?Doppler assessment is consistent with normal left sided filling pressure. Left Atrium ?The left atrium is normal in size. Right Ventricle ?Right ventricular chamber size, wall thickness, and systolic function are within normal limits. ?No pulmonary hypertension is noted. ?The estimated pulmonary artery systolic pressure is 25 mmHg. ?The estimated right atrial pressure is 3 mmHg. Right Atrium ?The right atrium is mildly dilated. Aortic Valve ?The aortic valve is trileaflet. [...] in structure and function. Pericardium ?There is no pericardial effusion. Aorta ?The aortic root is normal in size. ?The ascending aorta is normal in size. Pulmonary Artery ?The main pulmonary artery appears normal. Venous ?The inferior vena cava appears normal in size. ?There is a greater than 50% respiratory change in the inferior vena cava dimension. Misc ?There is no hemodynamically significant valve disease. ?See remainder of report for additional findings. ?Two-dimensional echo, spectral Doppler and color Doppler performed. Wall Motion: Segment Name ?Rest ? Base-Anteroseptal ?? Normal ? Base-Anterior ? Normal ? Base-Anterolateral ??Normal ? Base-Posterolateral Normal ? Base-Inferior ? Normal ? Base-Inferoseptal ?? Normal ? Mid-Anteroseptal ?Normal ? Mid-Anterior ?Normal ? Mid-Anterolateral ?? Normal ? Mid-Posterolateral ??Normal ? Mid-Inferior ?Normal ? Mid-Inferoseptal ?Normal ? [place]-Septal ? Normal ? [place]-Anterior ? Normal ? [place]-Lateral ?Normal ? [place]-Inferior ? Normal ? [place]-Tip ?Normal ? Chambers ?Value ?Units (Range) ? LV EF Est ? 65 ? % (55 to 80) ? IVSd 2D ? 1 ?cm ? LVIDd 2D ?5 ?cm ? PWd 2D ?0.9 ?cm ? LVIDs 2D ?2.6 ?cm ? LVFS 2D ? 48 ? % ? LA area ? 20 ? cm2 (<21) ? RA area ? 18 ? cm2 (<18) ? Ao root ? 3.3 ?cm (2.1 to 3.6) ? Asc Ao ?3.1 ?cm (2 to 3.5) ? Mitral Valve ?Value ?Units (Range) ? E peak ?0.59 ? m/sec ? E/A ratio ? 1.1 ?ratio ? MVDT ?206 ?msec ? E1 ?0.11 ? m/sec ? E/E1 ?5 ?ratio ? Tricuspid/Pulmonic Valves ?Value ?Units (Range) ? TR peak ere ? 2.3 ?m/sec ? RAP ? 3 ?mmHg ? RVSP/PASP ? 25 ? mmHg ? This report has been electronically signed by: Matt Melgar M.D. ? 01/15/2012 14:16:10 Images reviewed and interpretation verified [facility] Procedure Note Matt Melgar MD - 01/15/2012 Procedure: Transthoracic Echocardiogram Patient: LORIN East (Age): 1945(66) Med Rec#: [id number] Sex: M Site Loc: [facility] Ht / Wt: 180(cm)/94(kg) Pt. Loc: Echo Lab BSA: 2.17 Study Date: 01/15/2012 Pt. Type: Outpatient Tape: Referring: Nic Tran Steel Worker: Lara Valerio Diagnosis:CPT Code(s): Color Doppler (54486), Doppler LTD (52431), Echo LTD (69500), Indication(s): Pericardial effusion, R/O Rhythm: Sinus HR BP 133/80 SUMMARY: 1. There is no pericardial effusion. [...] There is no hemodynamically significant valve disease. FINDINGS: Left Ventricle The left ventricular chamber size is normal. Left ventricular wall thickness is normal. There is normal global left ventricular systolic function. Ejection fraction is estimated to be 65%. There are no left ventricular segmental wall motion abnormalities. Doppler assessment is consistent with normal left sided filling pressure. Left Atrium The left atrium is normal in size. Right Ventricle Right ventricular chamber size, wall thickness, and systolic function are within normal limits. No pulmonary hypertension is noted. The estimated pulmonary artery systolic pressure is 25 mmHg. The estimated right atrial pressure is 3 mmHg. Right Atrium The right atrium is mildly dilated. Aortic Valve The aortic valve is trileaflet. [...] in structure and function. Pericardium There is no pericardial effusion. Aorta The aortic root is normal in size. The ascending aorta is normal in size. Pulmonary Artery The main pulmonary artery appears normal. Venous The inferior vena cava appears normal in size. There is a greater than 50% respiratory change in the inferior vena cava dimension. Misc There is no hemodynamically significant valve disease. See remainder of report for additional findings. Two-dimensional echo, spectral Doppler and color Doppler performed. Wall Motion: Segment Name Rest Base-Anteroseptal Normal Base-Anterior Normal Base-Anterolateral Normal Base-Posterolateral Normal Base-Inferior Normal Base-Inferoseptal Normal Mid-Anteroseptal Normal Mid-Anterior Normal Mid-Anterolateral Normal Mid-Posterolateral Normal Mid-Inferior Normal Mid-Inferoseptal Normal [place]-Septal Normal [place]-Anterior Normal [place]-Lateral Normal [place]-Inferior Normal [place]-Tip Normal Chambers Value Units (Range) LV EF Est 65 % (55 to 80) IVSd 2D 1 cm LVIDd 2D 5 cm PWd 2D 0.9 cm LVIDs 2D 2.6 cm LVFS 2D 48 % LA area 20 cm2 (<21) RA area 18 cm2 (<18) Ao root 3.3 cm (2.1 to 3.6) Asc Ao 3.1 cm (2 to 3.5) Mitral Valve Value Units (Range) E peak 0.59 m/sec E/A ratio 1.1 ratio MVDT 206 msec E1 0.11 m/sec E/E1 5 ratio Tricuspid/Pulmonic Valves Value Units (Range) TR peak ree 2.3 m/sec RAP 3 mmHg RVSP/PASP 25 mmHg This report has been electronically signed by: Matt Melgar M.D. 01/15/2012 14:16:10 Images reviewed and interpretation verified [facility] Nic Tran II, MD ECHO ORDERABLES documented in this encounter Visit Diagnoses Diagnosis Pericardial effusion- Primary Unspecified disease of pericardium Pericardial effusion Unspecified disease of pericardium documented in this encounter Care Teams Line Maintenance Technician Relationship Specialty Start Date End Date Diana Weaver MD [address] [place] [address] PCP - General 05/22/10 09/11/17 documented as of this encounter
--- OUTSIDE RECORDS SUMMARY | 2024-03-12 00:12 | XMS_ITS | Encounter Summary ---
Author Organization [facility] [place] [address] Care Team Providers Care Associate Broker Name Role Phone Diana Weaver MD Primary Care Provider [phone] Encounter Details Date Type Department Care Team (Late st Contact Info) Description 05/03/2011 Orders [place] [address] Oliver Carter MD [facility] [place] [address] Shoulder pain Social History Tobacco Use Types [...] as of this encounter Visit Diagnoses Diagnosis Shoulder pain Pain in joint, shoulder region documented in this encounter Care Teams Associate Broker Relationship Specialty Start Date End Date Diana Weaver MD [address] [place] [address] PCP - General 05/22/10 09/11/17 documented as of this encounter
--- OUTSIDE RECORDS SUMMARY | 2024-03-12 00:12 | XMS_ITS | Encounter Summary ---
Author Organization [facility] [place] [address] Care Team Providers Care Sweeper Operator Highways Name Role Phone Diana Booker MD Primary Care Provider [phone] Encounter Details Date Type Department Care Team (Late st Contact Info) Description 12/25/2011 2:15 PM EDT - 12/27/2011 2:12 PM EDT Hospital Encounter Inter[place] [address] Pieter Crowell MD [facility] [address] [place] [address] Solange Mei MD [facility] [place] [address] Nic Tran II, MD [facility] [place] [address] Pericardial effusion Discharge Disposition: Home Social History [...] ECHOCARDIOGRAM on January 01, 12:30 pm at [facility], location 4A. Please keep a log of your heart rate and blood pressure at home every day. You had high blood pressure and a rapid heart rate during this admission, and this log will help your doctors to understand the reason for this. Please be sure to follow up with Dr. Kurt Hernández at [facility] on January 14 at 2:10 pm, location [facility] 4A. This is important to continue the [...] Osteoarthritis 715.90AN ??? CIS - asbestos exposure 45165 ??? CIS - Bilateral knee osteoarthritis 47003 ??? CIS - Bilateral knee pain 11598 ??? BPH (benign prostatic hyperplasia) 600.90AJ ??? Erectile dysfunction 607.84D ??? CIS - rotator cuff tears 59548 ??? Condyloma 078.11E ? ? Rotator cuff [...] Office of Care Management (OCM) / Clinical Audiometric Technician (CRC)/ Initial Assessment Discussed patient with Provider [...] b/p for follow up appointment here at [facility]. CRC advised pt he would need to privatly Pay for this and most [facility] pharmacy do have them . Pt verbalized understanding and stated he would be able to afford this. ELECTRONIC PARTS SALESPERSON REFERRAL: Notified AMY Quarles - Support/Financial/Medication Assistance; See ELECTRONIC PARTS SALESPERSON notes for further needs. PRIMARY CARE PHYSICIAN: DIANA BOOKER MD [address] [facility] [address] POTENTIAL DISCHARGE NEEDS: None ID at this [...] Inpatient Cardiology Progress Note Patient Name: Alvin Cat Service: Cardiology Responsible Attending: Dr. Mei Reason [...] [place] [address] HCT BF Type Pericardial fl HCT BF [...] the past2 weeks. 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 For [...] pericardial effusion, with echocardiographic evidence of tamponade. [facility] cardiology was then contacted and he was accepted in transfer to the cardiology service. 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 TREATMENT PLAN: Cardiac tamponade -to dock or pier laborer for pericardiocentesis -fluid for cell count, culture, [...] morning rounds. CMRI tomorrow to evaluate to CMP further. documented in this encounter Procedure Notes * Provider, Scanning - 12/28/2011 1:34 PM EDTAssociated Order(s): SCAN DOC: VAULT MAKER * Provider, Scanning - 12/27/2011 4:00 [...] the past2 weeks. 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 For [...] pericardial effusion, with echocardiographic evidence of tamponade. [facility] cardiology was then contacted and he was accepted in transfer to the cardiology service. On arrival to [facility] he was feeling well without complaints of [...] outpatient. A follow-up TTE was scheduled at [facility] cardiology clinic at the earliest date available, [...] to be obtained on January 01 at [facility] cardiology clinic Discharge Conditions/Prognosis: Good Discharge to: [...] follow up with Dr. Kurt Hernández at [facility] on January 14 at 2:10 pm, location [facility] 4A. This is important to continue the work-up for the cause of your tamponade. You should also follow up with your primary care doctor, Dr. DIANA BOOKER, on , January 01, at12:50 pm. General Instructions None Future Appointments and Orders Future Appointments: Provider: Department: Dept Phone: Center: 01/15/2012 2:10 PM Kurt Hernández MD [facility] Cardiology [phone] [facility] Joint Appt Nurse Cardiology, RN [facility] [phone] [facility] Future Orders Please Complete By Expires Echo Transthoracic (Complete) [ECH10 Custom] 12/30/11 12/26/12 ProcessInstructions: Scheduling Instructions: Comments: Questions: Responses: Should this service/procedure be billed to the research sponsor? Which location will this be performed? [place] Provider Contact Information: Attending: Dr. Mei Fellow: [...] Procedure Name Priority Date/Time Associated Diagnosis Comments VAULT MAKER SCAN 12/28/2011 1:34 PM EDT MRI [...] 12/26/19 12 6:15 AM EDT CARDIAC ENZYMES ([facility]) Routine 12/26/2011 6:15 AM EDT PROTHROMBIN TIME [...] CULTURE AUTOMATED Routine 12/25/2011 8:27 PM EDT NON-COMMUTATOR TESTER FINAL REPORT Routine 12/25/2011 7:06 PM EDT AFB CULTURE Routine 12/25/2011 7:03 PM EDT CYTOMEGALOVIRUS CULTURE Routine 12/25/19 7:03 PM EDT ANAEROBIC CULTURE Routine 12/25/2011 [...] (Complete) (01/02/2012 4:31 PM EDT) EF 60 [employer] SYSTEM Anatomical Region Laterality Modality Other 01/02/2012 Narrative 01/02/2012 4:43 PM EDT Procedure: ? Transthoracic Echocardiogram Patient: ? PODHURST ALVIN L ?(Age): 1945(66) Med Rec#: ?[id number] ? Sex: ?M ? Site Loc: ?[facility] ? Ht / Wt: ??180(cm)/94(kg) Pt. Loc: ? Echo Lab ? BSA: ?2.17 Study Date: ?01/02/2012 ? Pt. Type: Outpatient Tape: ? Referring: Solange Mei MD Referring: RIAN CARDOZO APRN, E Muskrat Trapper: Lara Valerio Diagnosis:CPT Code(s): ??Color Doppler (99645), ??Echo Full (36515), Spectral Doppler (45357), Indication(s): ??Pericardial effusion, F/U Rhythm: Sinus HR [...] ? Mid-Inferior ?Normal ? Mid-Inferoseptal ?Normal ? Clarence-Septal ? Normal ? Clarence-Anterior ? Normal ? Clarence-Lateral ?Normal ? Clarence-Inferior ? Normal ? Clarence-Tip ?Normal ? Chambers ?Value ?Units (Range) ? [...] 01/02/2012 16:42:52 Images reviewed and interpretation verified [facility] Cardiac Ultrasound Laboratory Procedure Note Carl Gomez MD - 01/02/2012 Procedure: Transthoracic Echocardiogram Patient: LORIN GREGORIO(Age): 1945(66) Med Rec#: [id number] Sex: M Site Loc: [facility] Ht / Wt: 180(cm)/94(kg) Pt. Loc: Echo Lab BSA: 2.17 Study Date: 01/02/2012 Pt. Type: Outpatient Tape: Referring: Solange Mei MD Referring: RIAN CARDOZO APRN, E Muskrat Trapper: Lara Valerio Diagnosis:CPT Code(s): Color Doppler (38744), Echo Full (92563), Spectral Doppler (19966), Indication(s): Pericardial effusion, F/U Rhythm: Sinus HR [...] change in the inferior vena cava dimension. [facility] Two-dimensional echo, spectral Doppler and color Doppler performed. Wall Motion: Segment Name Rest Base-Anteroseptal Normal Base-Anterior Normal Base-Anterolateral Normal Base-Posterolateral Normal Base-Inferior Normal Base-Inferoseptal Normal Mid-Anteroseptal Normal Mid-Anterior Normal Mid-Anterolateral Normal Mid-Posterolateral Normal Mid-Inferior Normal Mid-Inferoseptal Normal Clarence-Septal Normal Clarence-Anterior Normal Clarence-Lateral Normal Clarence-Inferior Normal Clarence-Tip Normal Chambers Value Units (Range) IVSd 2D [...] 01/02/2012 16:42:52 Images reviewed and interpretation verified [facility] Cardiac Ultrasound Laboratory Solange Mei MD ECHO ORDERABLES * SCAN DOC: VAULT MAKER (12/28/2011 1:34 PM EDT) Anatomical Region [...] by the attending Solange Mei MD IMG MRI ORDERABLES * (ABNORMAL) DIFFERENTIAL, AUTOMATED (12/27/2011 [...] EDT Solange Mei MD HEMATOLOGY ORDERABLE S Performing Organization Address City/[facility]/ZIP Co de Phone Number EDUARDO DIAZ * CBC (with Diff) (12/27/2011 5:36 AM [...] Lab Solange Mei MD HEMATOLOGY ORDERABLE S EDUARDO MCCORDENNIUM * Phosphorus (12/27/2011 5:36 AM EDT) Phosphorus 3.7 2.5 - 4.5 mg/dL CERNER MILLENNIUM Blood specimen (specimen) 12/27/2011 5:36 AM EDT 12/27/2011 5:59 AM EDT Narrative Resulting Agency Comment Spec In Lab Solange Mei MD CHEMISTRY ORDERABLES Performing Organization Address [facility] de Phone Number [facility] M[facility]ORDENNI[facility] * Magnesium (12/27/2011 5:36 AM EDT) Magnesium 0.86 0.69 - 1.07 mmol/L [facility] MILLENNIUM Blood specimen (specimen) 12/27/2011 5:36 AM EDT 12/27/2011 5:59 AM EDT Narrative Resulting Agency Comment Spec In Lab Solange Mei MD CHEMISTRY ORDERABLES Performing Organization Address [facility] de Phone Number CERCAMILA PICKENSIUM * Basic Metabolic Panel (non-fasting) (12/27/2011 5:36 AM EDT) Glucose 105 60 - 199 mg/dL CERNER MILLENNIUM Comment:Diabetes: >=200 mg/d L plus symptoms Blood Urea Nitrogen 13 10 - 20 mg/dL CERNER MILLENNIUM Creatinine 1.07 0.80 - 1.50 mg/dL CERNER MILLENNIUM Comment: Please note that the pediatric reference intervals supplied above were not validated at [facility]. Results from pediatric patients should be interpreted [...] Mei MD CHEMISTRY ORDERABLES Performing Organization Address [facility] Co de Phone Number EDUARDO DIAZ * QuantiFERON-TB Gold (12/27/2011 5:36 AM EDT) Quantiferon-TB Gold Negative Negative [facility]IL[facility] Comment: M. tuberculosis (TB) infection NOT likely [...] IT assay will be performed in the [facility]. Please call , press 4; with questions. Blood specimen (specimen) 12/27/2011 5:36 AM EDT 12/30/2011 8:00 AM EDT Narrative Resulting Agency Comment Spec In Lab Solange Mei MD CHEMISTRY ORDERABLES Performing Organization Address [facility] Co de Phone Number EDUARDO DIAZ * CT CHEST, ABDOMEN, & PELVIS WITH [...] PODHURST ALVIN L ?(Age): 1945(66) Med Rec#: ?[id number] ? Sex: ?M ? Site Loc: ?[facility] ? Ht / Wt: ??180(cm)/93(kg) Pt. Loc: ? Adult Floor ?BSA: ?2.13 Study Date: ?12/26/2011 ? Pt. Type: Inpatient Tape: ? Referring: Solange Mei MD Referring: MARLO WORKMAN E Muskrat Trapper: Devaughn Ahuja MS, [facility] Diagnosis: ??Pericardial effusion (423.9) CPT Code(s): ??Echo LTD (41401), ??Doppler LTD (79495), Indication(s): ??Pericardial effusion, F/U Rhythm: HR ?BP [...] ? Mid-Inferior ?Normal ? Mid-Inferoseptal ?Normal ? Clarence-Septal ? Normal ? Clarence-Anterior ? Normal ? Clarence-Lateral ?Normal ? Clarence-Inferior ? Normal ? Clarence-Tip ?Normal ? Chambers ?Value ?Units (Range) ? LV EF Est ? 65 ? % (55 to 80) ? This report has been electronically signed by: Washington Nicole M.D. ? 12/26/2011 08:52:57 Images reviewed and interpretation verified [facility] Cardiac Ultrasound Laboratory Procedure Note Washington Nicole MD - 12/26/2011 Procedure: Transthoracic Echocardiogram Patient: LORIN East (Age): 1945(66) Med Rec#: [id number] Sex: M Site Loc: [facility] Ht / Wt: 180(cm)/93(kg) Pt. Loc: Adult Floor BSA: 2.13 Study Date: 12/26/2011 Pt. Type: Inpatient Tape: Referring: Solange Mei MD Referring: MARLO WORKMAN E Muskrat Trapper: Devaughn Ahuja MS, [facility] Diagnosis: Pericardial effusion (423.9) CPT Code(s): Echo LTD (92523), Doppler LTD (52759), Indication(s): Pericardial effusion, F/U Rhythm: HR BP [...] is no echo evidence of pericardial tamponade. [facility] 2-D echo/SD Wall Motion: Segment Name Rest Base-Anteroseptal Normal Base-Anterior Normal Base-Anterolateral Normal Base-Posterolateral Normal Base-Inferior Normal Base-Inferoseptal Normal Mid-Anteroseptal Normal Mid-Anterior Normal Mid-Anterolateral Normal Mid-Posterolateral Normal Mid-Inferior Normal Mid-Inferoseptal Normal Clarence-Septal Normal Clarence-Anterior Normal Clarence-Lateral Normal Clarence-Inferior Normal Clarence-Tip Normal Chambers Value Units (Range) LV EF Est 65 % (55 to 80) This report has been electronically signed by: Washington Nicole M.D. 12/26/2011 08:52:57 Images reviewed and interpretation verified [facility] Cardiac Ultrasound Laboratory Solange Mei MD ECHO [...] 6:15 AM EDT 12/26/2011 6:31 AM EDT Solangegenaro Mei MD HEMATOLOGY ORDERABLE S EDUARDO DIAZ * Cardiac Enzymes (12/26/2011 6:15 AM EDT) Troponin-T <0.03 <=0.03 ng/mL CERNER MILLENNIUM Comment: 0.03 ng/mL: Represents the 99th percentile upper reference limit for normals. >0.03 ng/mL: Elevated cardiac troponin T level indicative of myocardial damage. Diagnosis of acute, evolving or recent [place] requires a typical rise and gradual fall [...] consensus document of the Joint Society of Cardiology/[place] College of Cardiology Committee for the redefinition of myocardial infarction. Journal of the [place] College of Cardiology 2000; 36: 959-969] Creatine Kinase 61 0 - 200 unit/L CERNER ZoutonsELPIDIOIUM Blood specimen (specimen) 12/26/2011 6:15 AM EDT 12/26/2011 6:31 AM EDT Narrative Resulting Agency Comment Spec In Lab Solange Mei MD CHEMISTRY ORDERABLES [facility] * Lipid panel (fasting) (12/26/2011 6:15 AM EDT) Cholesterol, Total 126 <=199 mg/dL CERNER MILLENNIUM Comment: Recommendations of the NCEP Adult Treatment Panel for the following risk cutoff thresholds for the [place] population: Desirable: <200 mg/dL Borderline High: 200-239 mg/dL High: > or = 240 mg/dL Triglyceride 92 <=149 mg/dL CERNER MILLENNIUM Comment: Reference Range: Normal triglycerides: ??<150 mg/dL Borderline high: ??150-199 mg/dL High: ??200-499 mg/dL Very high: ??>lj=793 mg/dL JOB 2001; 285(19):9101-8535 HDL Cholesterol 46 >=40 mg/dL [facility] MILLENNIUM Comment: Reference range: ??Low HDL: ?? < 40 mg/dL ??Normal: ?40-60 mg/dL ??Desirable: > 60 mg/dL JOB 2001; 285(19):6074-3868 LDL Cholesterol 62 <=99 mg/dL CER NER MILLENNIUM Comment: Reference range: ?? Optimal: ?<100 mg/dL ?? Near Optimal/Above Optimal: ?? 100-129 mg/dL ?? Borderline high: ?130-159 mg/dL ?? High: ? 160-189 mg/dL ?? Very high: ?>ff=304 mg/dL JOB 2001: 285(19):5395-3155 Cholesterol/HDL Ratio 2.7 ratio CERNER MILLENNIUM Comment: A Cholesterol to HDL ratio below 4:1 is desirable. ??Studies suggest that increased CAD risk occurs at ratios above 5 for females and above 6 for men. ? [employer] Heart Association ??(http://www.americanheart.org) ? Sharon Int Med, 1994; 121:641 ? AM J Med, 1998; 105(1A):48S Blood specimen (specimen) 12/26/2011 6:15 AM EDT 12/26/2011 6:31 AM EDT Narrative Resulting Agency Comment Spec In Lab Solange Mei MD CHEMISTRY ORDERABLES Performing Organization Address City/[facility]/ZIP Co de Phone Number EDUARDO DIAZ * Prothrombin Time (12/26/2011 6:15 AM EDT) Prothrombin Time 14.6 11.9 - 14.7 sec CERNER MILLENNIUM Comment: [facility] Transfusion Committee Guidelines: INR less than 2.0, PTT less than OR equal to 43.5 seconds, or Fibrinogen greater than or equal to 100 mg/dl indicate adequate procoagulant activity for hemostasis in patients without underlying bleeding disorders. International Normalization Ratio 1.1 0.9 - 1.1 CERCAMILA MCCORDENNIUM Blood specimen (specimen) 12/26/2011 6:15 AM EDT 12/26/2011 6:31 AM EDT Narrative Resulting Agency Comment Spec In Lab Solange Mei MD HEMATOLOGY ORDERABLE S Performing Organization Address City/[facility]/ZIP Co de Phone Number EDUARDO DIAZ * [...] In Lab Solange Mei MD CHEMISTRY ORDERABLES [facility] MILLENNIUM * Basic Metabolic Panel (non-fasting) (12/26/2011 6:15 AM EDT) Glucose 140 60 - 199 mg/dL CERNER MILLENNIUM Comment:Diabetes: >=200 mg/d L plus symptoms Blood Urea Nitrogen 12 10 - 20 mg/dL CERNER MILLENNIUM Creatinine 1.19 0.80 - 1.50 mg/dL CERNER MILLENNIUM Comment: Please note that the pediatric reference intervals supplied above were not validated at [facility]. Results from pediatric patients should be interpreted [...] MILLENNIUM Est Glomerular Filtration Rate >60 >=60 [facility] Comment: The National Kidney Disease Education Program [...] AK, Pancho TS, Joanie AD, José Antonio BRAIN. Relative performance of the MDRD and CKD-EPI equations for estimating glomerular filtration rate among patients with varied clinical presentations. Clin J Am Soc Nephrol;6:1963-72. Blood specimen (specimen) 12/26/2011 6:15 AM EDT 12/26/2011 6:31 AM EDT Narrative Resulting Agency Comment Spec In Lab Solange Mei MD CHEMISTRY ORDERABLES EDUARDO DIAZ * CBC (with Diff) (12/26/2011 6:15 AM EDT) White Blood Cell 8.4 4.0 - 10.0 x10(3)/mcL CERNER MILLENNIUM Red Blood Cell 5.05 4.63 - 6.08 x10(6)/mcL CERNER MILLENNIUM Hemoglobin 15.5 13.7 - 17.5 gm/dL CERNER [...] Narrative Resulting Agency Comment Spec In Lab Solangegenaro Mei MD HEMATOLOGY ORDERABLE S EDUARDO DIAZ * EKG 12 Lead (12/26/2011 6:01 AM EDT) Ventricular rate 97 BPM MUSE SYSTEM Atrial Rate 97 BPM MUSE SYSTEM P-R Interval 148 ms MUSE SYSTEM QRS Duration 100 ms MUSE SYSTEM Q-T Interval 344 ms MUSE SYSTEM QTC Calculated (Bezet) 436 ms MUSE SYSTEM Calculated P [place] 57 degrees MUSE SYSTEM Calculated R [place] -16 degrees MUSE SYSTEM Calculated T [place] 92 degrees MUSE SYSTEM INTERPRETATION Normal sinus rhythm Possible Left atrial enlargement Abnormal ECG When compared with ECG of 25-DEC-2011 16:01, T wave inversion no longer evident in Lateral leads Confirmed by MD Agustina, Don ([id number]) on 12/26/2011 5:28:16 PM MUSE SYSTEM 12/26/2011 6:01 AM EDT 12/26/2011 5:28 PM EDT Solange Mei MD ECG ORDERABLES MUSE SYSTEM * BODY FLUID CULTURE AUTOMATED (12/25/2011 8:27 PM EDT) Body Fluid Culture Automated ? Patient Name: ALVIN CAT ? Ordered By: SOLANGE MEI ? MR#: [id number] ?LOC: ??[facility] ? /Sex: ??1945 (66 years), [...] testing is required, contact the Microbiology ? Medium Cycle Salesperson. ? PRELIMINARY REPORT ? Preliminary Report ? Verified:01/01/20 12 08:22 ? Coagulase negative Staphylococcus species isolated ? Susceptibility testing in progress ? Patient: ALVIN CAT ? MR#: [id number] ? SUSCEPTIBILITY RESULTS ? Coagulase negative Staphylococcus [...] and to Cefepime and Meropenem. ? EDUARDO DIAZ Pericardial fluid specimen (specimen) 12/25/2011 8:27 PM EDT 12/25/2011 8:27 PM EDT Narrative Resulting Agency Comment Spec In Lab Solange Mei MD MICROBIOLOGY - GENER AL ORDERABLES EDUARDO DIAZ * NON-COMMUTATOR TESTER FINAL REPORT (12/25/2011 7:06 PM EDT) Non-Annealing Torch Operator Final Report ? [facility] ? Provider: ?? [facility], ?Pt. Name: ?? ALVIN CAT ?ROSA Payton ? Acc #: ?[id number] ?Pt. ? Col Date: ?? 12/25/2011 ? [...] Findings: ?(none provided) ? Gross Description: ? [facility] ? Provider: ?? [facility], ?Pt. Name: ?? ALVIN CAT ?ROSA Payton ? Acc #: ?[id number] ?Pt. ? Col Date: ?? 12/25/2011 ? /Sex: ?1945,(66 years),Male ? Rec Date: ?? 12/25/2011 ? LOC: ?[facility] ? CYTOPATHOLOGY: ??NGYN ?Received fresh, approximately 100 ml. total volume of cloudy, bloody ? fluid. ?Total Preparation: Liquid Based Prep 1; Cell Block 1. EDUARDO DIAZ 12/25/2011 7:06 PM EDT Rosa Bess MD PATHOLOGY/C YTOLOGY ORDERABLES [facility] * CYTOMEGALOVIRUS CULTURE (12/25/2011 7:03 PM EDT) Cytomegalovirus Culture ? Patient Name: ALVIN CAT ? Ordered By: SOLANGE MEI ? MR#: [id number] ?LOC: ??[facility] ? /Sex: ??1945 (66 years), [...] developed and its performance determined by the [facility] Dept. of ? Pathology, Clinical ? Laboratory. ??It has not been cleared or approved by the U.S. Food and Drug ? Administration. ??The FDA has ? determined that such clearance or approval is not necessary. ? This test is used for clinical purposes. ? EDUARDO MCCORDENNIUM Pericardial fluid specimen (specimen) 12/25/2011 7:03 PM EDT 12/25/2011 7:04 PM EDT Narrative Resulting Agency Comment Spec In Lab Solange Mei MD MICROBIOLOGY - GENER AL ORDERABLES EDUARDO DIAZ * AFB CULTURE (12/25/2011 7:03 PM EDT) Acid Fast Bacilli Culture ? Patient Name: ALVIN CAT ? Ordered By: SOLANGE MEI ? MR#: [id number] ?LOC: ??[facility] ? /Sex: ??1945 (66 years), ? Male ? PROCEDURE: Acid Fast Bacilli Culture ?SOURCE: Pericardial Fl ? COLLECTED: 12/25/2011 19:03 ? STARTED: 12/25/2011 19:03 ? STAINS / PREPARATIONS ? Acid Fast Stain Report ? Verified: 012 20:52 ? No Acid Fast Bacilli seen ? FINAL REPORT ? Final Report ? Verified: 012 09:53 ? No Acid Fast Bacilli isolated ? PRELIMINARY REPORT ? Preliminary Report ? Verified: 012 14:01 ? No acid fast bacilli isolated at 7 weeks. ? EDUARDO PICKENSIUM Pericardial fluid specimen (specimen) 12/25/2011 7:03 PM EDT 12/25/2011 7:03 PM EDT Narrative Resulting Agency Comment Spec In Lab Solange Mei MD MICROBIOLOGY - GENER AL ORDERABLES EDUARDO DIAZ * FUNGAL STAIN (12/25/2011 7:02 PM EDT) Calcofluor White Stain ? Patient Name: ALVIN CAT ? Ordered By: SOLANGE MEI ? MR#: [id number] ?LOC: ??[facility] ? /Sex: ??1945 (66 years), ? Male ? PROCEDURE: Calcofluor White Stain ?SOURCE: Pericardial Fl ? COLLECTED: 12/25/2011 19:02 ? STARTED: 12/25/2011 19:02 ? STAINS / PREPARATIONS ? Calcofluor Stain Report ? Verified: 012 23:23 ? Calcofluor White Preparation: Negative ? EDUARDO PICKENSIUM Pericardial fluid specimen (specimen) 12/25/2011 7:02 PM EDT 12/25/2011 7:02 PM EDT Narrative Resulting Agency Comment Spec In Lab Solange Mei MD MICROBIOLOGY - GENER AL ORDERABLES EDUARDO DIAZ * FUNGUS CULTURE (12/25/2011 7:02 PM EDT) Fungus Culture ? Patient Name: ALVIN CAT ? Ordered By: SOLANGE MEI ? MR#: [id number] ?LOC: ??[facility] ? /Sex: ??1945 (66 years), ? Male ? PROCEDURE: Fungus Culture ?SOURCE: Pericardial Fl ? COLLECTED: 12/25/2011 19:02 ? STARTED: 12/25/2011 19:02 ? FINAL REPORT ? Final Report ? Verified:2011 07:18 ? No Fungus isolated ? PRELIMINARY REPORT ? Preliminary Report ? Verified:2011 09:12 ? No Fungus isolated to date ? EDUARDO PICKENSIUM Pericardial fluid specimen (specimen) 12/25/2011 7:02 PM EDT 12/25/2011 7:02 PM EDT Narrative Resulting Agency Comment Spec In Lab Solange Mei MD MICROBIOLOGY - GENER AL ORDERABLES EDUARDO DIAZ * ANAEROBIC CULTURE (12/25/2011 7:02 PM EDT) Anaerobic Culture ? Patient Name: ALVIN CAT ? Ordered By: SOLANGE MEI ? MR#: [id number] ?LOC: ??[facility] ? /Sex: ??1945 (66 years), ? Male ? PROCEDURE: Anaerobic Culture ?SOURCE: Pericardial Fl ? COLLECTED: 12/25/2011 19:02 ? STARTED: 12/25/2011 19:02 ? FINAL REPORT ? Final Report ? Verified:2011 13:15 ? No anaerobic organisms isolated ? PRELIMINARY REPORT ? Preliminary Report ? Verified:2011 10:20 ? No anaerobic organisms isolated to date ? EDUARDO DIAZ Pericardial fluid specimen (specimen) 12/25/2011 7:02 PM EDT 12/25/2011 7:02 PM EDT Narrative Resulting Agency Comment Spec In Lab Solange Mei MD MICROBIOLOGY - GENER AL ORDERABLES [facility] * BODY FLUID CULTURE (12/25/2011 7:02 PM EDT) Body Fluid Culture ? Patient Name: ALVIN CAT ? Ordered By: SOLANGE MEI ? MR#: [id number] ?LOC: ??[facility] ? /Sex: ??1945 (66 years), [...] 07:48 ? No growth to date. ? EDUARDO PICKENSIUM Pericardial fluid specimen (specimen) 12/25/2011 7:02 PM EDT 12/25/2011 7:02 PM EDT Narrative Resulting Agency Comment Spec In Lab Solange Mei MD MICROBIOLOGY - GENER AL ORDERABLES Performing Organization Address [facility] Co de Phone Number EDUARDO PICKENSIUM * BODY FLUID HOLD (12/25/2011 6:15 PM EDT) HOLD, FLD Pericardial fl HOLLINE R NELIAIUM Body fluid specimen (specimen) 12/25/2011 6:15 PM EDT 12/25/2011 7:19 PM EDT Solange Mei MD BODY FLUIDS AND STOO LS ORDERABLES Performing Organization Address [facility] Co de Phone Number EDUARDO PICKENSIUM * BODY FLUID MISCELLANEOUS (12/25/2011 6:15 PM EDT) Misc BF Result Not Perf HOLLINE R NELIAIUM Comment:Specimen type is sotero cceptable Misc BF Type Pericardial fl CE RNER NELIAIUM Body fluid specimen (specimen) 12/25/2011 6:15 PM EDT 12/25/2011 7:19 PM EDT Narrative Resulting Agency Comment Spec In Lab Solange Mei MD BODY FLUIDS AND STOO LS ORDERABLES Performing Organization Address [facility] Co de Phone Number EDUARDO DIAZ * MISCELLANEOUS LAB REQUEST (12/25/2011 6:15 PM EDT) Label Request received in lab. EDUARDO PICKENSIUM Specimen of unknown material (specimen) 12/25/2011 6:15 PM EDT 12/25/2011 7:14 PM EDT Solange Mei MD LAB SEND OUT ORDERAB LES Performing Organization Address [facility] Phone Number EDUARDO DIAZ * Protein Level Body Fluid (12/25/2011 6:15 PM EDT) Protein, Fluid 4.8 gm/dL CERNE R MILLENNIUM Comment: Reference range: ??Transudates ??< 3.0 gm/dL ?Exudates ? > 3.0 gm/dL No reference range is available for the specimen type submitted. ??The performance of this assay for the submitted type has not been validated and results should be interpreted accordingly and with regard to the patient's clinical status. Prot, Fld Type Pericardial fl CERCAMILA MCCORDENNIUM Body fluid specimen (specimen) 12/25/2011 6:15 PM EDT 12/25/2011 7:12 PM EDT Narrative Resulting Agency Comment Spec In Lab Solange Mei MD BODY FLUIDS AND STOO LS ORDERABLES Performing Organization Address [facility] de Phone Number EDUARDO DIAZ * Lactate Dehydrogenase Body Fluid (12/25/2011 6:15 PM EDT) Lactate Dehydrogenase, Fluid >2500 unit/L EDUARDO PICKENSIUM Comment: No reference range is available for [...] AND STOO LS ORDERABLES Performing Organization Address [facility]/ZIP Co de Phone Number [facility] * Glucose Level Body Fluid (12/25/2011 6:15 PM EDT) Glucose, Fluid 61 mg/dL [facility] R [facility] Comment: No reference range is available for the specimen type submitted. ??The performance of this assay for the submitted type has not been validated and results should be interpreted accordingly and with regard to the patient's clinical status. Gluc, Fld Type Pericardial fl CERNER FLEXENNIUM Body fluid specimen (specimen) 12/25/2011 6:15 PM EDT 12/25/2011 7:12 PM EDT Narrative Resulting Agency Comment Spec In Lab Solange Mei MD BODY FLUIDS AND STOO LS ORDERABLES Performing Organization Address [facility] Co de Phone Number [facility] * Cholesterol Level Body Fluid (12/25/2011 6:15 PM EDT) Cholesterol, Fluid 97 mg/dL [facility] Comment: No reference range is available [...] AND STOO LS ORDERABLES Performing Organization Address [facility] Co de Phone Number [facility] * Albumin Level Body Fluid (12/25/2011 6:15 PM EDT) Albumin, Fluid 3.3 gm/dL [facility] Comment: In the evaluation of ascites, a [...] AND STOO LS ORDERABLES Performing Organization Address City/[facility]/ZIP Co de Phone Number CERNER MILLENNIUM * Hematocrit Body Fluid (12/25/2011 [...] AND STOO LS ORDERABLES Performing Organization Address [facility] Co de Phone Number CERNER MILLENNIUM * [...] AND STOO LS ORDERABLES Performing Organization Address [facility] Co de Phone Number [facility] * Cytopathology Non-Gynecological (12/25/2011 5:40 PM EDT) AP Specimen 12/25/2011 5:40 PM EDT 12/25/2011 5:40 PM EDT Narrative [facility] - 12/25/2011 5:40 PM EDT Specimen requisition ordered. ??Separate Pathology report to follow Solange Mei MD PATHOLOGY/CYTOLOGY O RDERABLES Performing Organization Address [facility] Co de Phone Number [facility] * RHEUMATOID FACTOR, QUANT (12/25/2011 4:07 PM EDT) Rheumatoid Factor 10 <=14 IU/mL [facility] Blood specimen (specimen) 12/25/2011 4:07 PM EDT 12/25/2011 6:13 PM EDT Narrative Resulting Agency Comment Spec In Lab Solange Mei MD CHEMISTRY ORDERABLES Performing Organization Address [facility] Co de Phone Number [facility] * (ABNORMAL) LACTATE DEHYDROGENASE (12/25/2011 4:07 PM EDT) Lactate Dehydrogenase 271(H) 110 - 220 unit/L [facility] Blood specimen (specimen) 12/25/2011 4:07 PM EDT 12/25/2011 4:19 PM EDT Narrative Resulting Agency Comment Spec In Lab Solange Mei MD CHEMISTRY ORDERABLES Performing Organization Address [facility] Co de Phone Number [facility] * (ABNORMAL) DIFFERENTIAL, AUTOMATED (12/25/2011 4:07 PM EDT) Neutrophil % 80.6(H) 34.0 - 71.0 % [facility] Neutrophil Absolute 5.46 1.50 - 6.30 x10(3)/mc [...] 0.01 0.00 - 0.05 x10(3)/mc L CERNER FLEXENNIUM Blood specimen (specimen) 12/25/2011 4:07 PM EDT 12/25/2011 4:16 PM EDT Solange Mei MD HEMATOLOGY ORDERABLE S EDUARDO DIAZ * DNA Antibody (Double-Stranded) (12/25/2011 4:07 PM EDT) DNA Ab (DS) Neg Neg CERNER FLEXENNIUM Blood specimen (specimen) 12/25/2011 4:07 PM EDT 12/26/2011 8:18 AM EDT Narrative Resulting Agency Comment Spec In Lab Solange Mei MD LAB SEND OUT ORDERAB LES EDUARDO DIAZ * TSH (12/25/2011 4:07 PM EDT) Thyroid Stimulating Hormone 1.24 0.27 - 4.20 mcIU/mL EDUARDO PICKENSIUM Blood specimen (specimen) 12/25/2011 4:07 PM EDT 12/25/2011 4:16 PM EDT Narrative Resulting Agency Comment Spec In Lab Solange Mei MD CHEMISTRY ORDERABLES Performing Organization Address [facility] de Phone Number EDUARDO DIAZ * (ABNORMAL) APTT (12/25/2011 4:07 PM EDT) Partial Thromboplastin Time 36(H) 25 - 35 sec EDUARDO PICKENSIUM Comment: Recommended therapeutic PTT range for full dose unfractionated heparin is 80-114 seconds. Blood specimen (specimen) 12/25/2011 4:07 PM EDT 12/25/2011 4:16 PM EDT Narrative Resulting Agency Comment Spec In Lab Solange Mei MD HEMATOLOGY ORDERABLE S Performing Organization Address [facility] Phone Number EDUARDO DIAZ * Prothrombin Time (12/25/2011 4:07 PM EDT) Prothrombin Time 14.3 11.9 - 14.7 sec EDUARDO DIAZ Comment: [facility] Transfusion Committee Guidelines: INR less than 2.0, PTT less than OR equal to 43.5 seconds, or Fibrinogen greater than or equal to 100 mg/dl indicate adequate procoagulant activity for hemostasis in patients without underlying bleeding disorders. International Normalization Ratio 1.1 0.9 - 1.1 EDUARDO PICKENSIUM Blood specimen (specimen) 12/25/2011 4:07 PM EDT 12/25/2011 4:16 PM EDT Narrative Resulting Agency Comment Spec In Lab Solange Mei MD HEMATOLOGY ORDERABLE S Performing Organization Address [facility] Co de Phone Number EDUARDO DIAZ * CBC (with Diff) (12/25/2011 4:07 PM EDT) Pathologist [facility] White Blood Cell 6.8 4.0 - 10.0 x10(3)/mcL [facility] Red Blood Cell 4.75 4.63 - 6.08 x10(6)/mcL [facility] MILLENNIUM Hemoglobin 14.4 13.7 - 17.5 gm/dL [facility] Hematocrit 41.8 40.0 - 51.0 % [facility] MILLENNIUM Mean Cell Volume 88.0 79.0 - 92.0 fL [facility] MILLENNIUM Mean Cell Hemoglobin 30.3 25.6 - 32.2 pg [facility] Mean Cell Hemoglobin Concentration 34.4 32.0 - 36.5 gm/dL [facility] Platelet 305 145 - 370 x10(3)/mcL [facility] MILLENNIUM RDW Standard Deviation 43.3 35.0 - 46.0 fL CERNER MILLENNIUM RDW coefficient of variation 13.5 10.9 - 14.4 % CERNER MILLENNIUM Mean Platelet Volume 9.6 9.0 - 12.0 fL [facility] MILLENNIUM Blood specimen (specimen) 12/25/2011 4:07 PM EDT 12/25/2011 4:16 PM EDT Narrative Resulting Agency Comment Spec In Lab Solange Mei MD HEMATOLOGY ORDERABLE S [facility] * (ABNORMAL) BMP w/fasting Glucose (12/25/2011 4:07 PM EDT) Pathologist [facility] Glucose Fasting 87 65 - 99 mg/dL [facility] Comment: ?Fasting* Glucose Interpretive Criteria Normal ?65-99 [...] of Diabetes Mellitus, Position Statement from the [employer]. ??Diabetes Care, Volume 33, Supplement 1, Jun 2009 Blood Urea Nitrogen 9(L) 10 - 20 mg/dL CERNER MILLENNIUM Creatinine 0.99 0.80 - 1.50 mg/dL CERNER MILLENNIUM Comment: Please note that the pediatric reference intervals supplied above were not validated at [facility]. Results from pediatric patients should be interpreted [...] Mei MD CHEMISTRY ORDERABLES Performing Organization Address City/[facility] Co de Phone Number [facility]ARDO [facility] * EKG 12 Lead (12/25/2011 4:01 PM EDT) Ventricular rate 91 BPM MUSE SYSTEM Atrial Rate 91 BPM MUSE SYSTEM P-R Interval 148 ms MUSE SYSTEM QRS Duration 102 ms MUSE SYSTEM Q-T Interval 352 ms MUSE SYSTEM QTC Calculated (Bezet) 432 ms MUSE SYSTEM Calculated P [place] 57 degrees MUSE SYSTEM Calculated R [place] -3 degrees MUSE SYSTEM Calculated T [place] 107 degrees MUSE SYSTEM INTERPRETATION Normal sinus rhythm Nonspecific T wave abnormality Abnormal ECG When compared with ECG of 12-APR-2010 13:20, Nonspecific T wave abnormality Present Confirmed by MD Agustina, Don ([id number]) on 12/25/2011 5:09:05 PM MUSE SYSTEM 12/25/2011 4:01 PM EDT 12/25/2011 5:09 PM EDT Solange Mei MD ECG ORDERABLES Performing Organization Address City/[facility] Co de Phone Number MUSE SYSTEM * Echo Transthoracic (Complete) (12/25/2011 3:52 PM EDT) EF 65 HEARTLAB SYSTEM Anatomical Region Laterality Modality Other 12/25/2011 Narrative 12/25/2011 4:27 PM EDT Procedure: ? Transthoracic Echocardiogram Patient: ? PODHURST ALVIN L ?(Age): 1945(66) Med Rec#: ?[id number] ? Sex: ?M ? Site Loc: ?[facility] ? Ht / Wt: ??180(cm)/94(kg) Pt. Loc: ? Echo Lab ? BSA: ?2.17 Study Date: ?12/25/2011 ? Pt. Type: Inpatient Tape: ? Referring: Sammy Balbuena Referring: MARLO WORKMAN E Muskrat Trapper: Devaughn Ahuja MS, [facility] Muskrat Trapper 2: Kurt Hernández ([id number]) Diagnosis: ??Pericardial effusion (423.9) CPT Code(s): ??Echo Full (08933), ??Spectral Doppler (49503), ??Color Doppler (09254), Indication(s): ??Pericardial effusion, R/O Rhythm: HR ?BP [...] ? Mid-Inferior ?Normal ? Mid-Inferoseptal ?Normal ? Clarence-Septal ? Normal ? Clarence-Anterior ? Normal ? Clarence-Lateral ?Normal ? Clarence-Inferior ? Normal ? Clarence-Tip ?Normal ? Chambers ?Value ?Units (Range) ? [...] 12/25/2011 16:27:05 Images reviewed and interpretation verified [facility] Cardiac Ultrasound Laboratory Procedure Note Devang Burns MD - 12/25/2011 Procedure: Transthoracic Echocardiogram Patient: LORIN GREGORIO(Age): 1945(66) Med Rec#: [id number] Sex: M Site Loc: [facility] Ht / Wt: 180(cm)/94(kg) Pt. Loc: Echo Lab BSA: 2.17 Study Date: 12/25/2011 Pt. Type: Inpatient Tape: Referring: Sammy Balbuena Referring: MARLO WORKMAN E Muskrat Trapper: Devaughn Ahuja MS, [facility] Muskrat Trapper 2: Kurt Hernández ([id number]) Diagnosis: Pericardial effusion (423.9) CPT Code(s): Echo Full (83526), Spectral Doppler (66783), Color Doppler (94467), Indication(s): Pericardial effusion, R/O Rhythm: HR BP [...] change in the inferior vena cava dimension[place] [facility] Two-dimensional echo, spectral Doppler and color Doppler performed. Wall Motion: Segment Name Rest Base-Anteroseptal Normal Base-Anterior Normal Base-Anterolateral Normal Base-Posterolateral Normal Base-Inferior Normal Base-Inferoseptal Normal Mid-Anteroseptal Normal Mid-Anterior Normal Mid-Anterolateral Normal Mid-Posterolateral Normal Mid-Inferior Normal Mid-Inferoseptal Normal Clarence-Septal Normal Clarence-Anterior Normal Clarence-Lateral Normal Clarence-Inferior Normal Clarence-Tip Normal Chambers Value Units (Range) LV EF [...] 12/25/2011 16:27:05 Images reviewed and interpretation verified [facility] Cardiac Ultrasound Laboratory Solange Mei MD ECHO ORDERABLES documented in this encounter Visit Diagnoses Diagnosis Pericardial effusion- Primary Unspecified disease of pericardium Dilated cardiomyopathy Other primary cardiomyopathies Pericardial effusion Unspecified disease of pericardium documented in this encounter Administered Medications Inactive Administered Medications - up to 3 most recent administrations Medication Order MAR Action Action Date Dose Rate Site acetaminophen (TYLENOL) tablet 1,000 mg 1,000 mg, Oral, ONCE, 1 dose, On Fri12/25/11 at 2100, Maximum dose of acetaminophen is 4000 mg from all sources in 24 hours., Routine Given 12/25/2011 9:09 PM EDT 1,000 mg amitriptyline (ELAVIL) tablet 50 mg 50 mg, Oral, NIGHTLY PRN, Starting on Fri12/25/11 at 2209, Until Fri12/27/11 at 0035, insomnia, Routine Given 12/26/2011 10:06 PM EDT 50 mg Given 12/26/2011 12:00 AM EDT 50 mg gadopentetate dimeglumine (MAGNEVIST) injection 19 mL 19 mL (0.2 mL/kg/dose ? 93.8 kg), Intravenous, ONCE PRN, Per Protocol, Starting on Fri12/27/11 at 0743, 1 dose, Until Fri12/27/11 at 0743 Given 12/27/2011 7:43 AM EDT 20 mLs hydrocortisone 0.5 % cream Topical, 2 TIMES DAILY PRN, PRN rectal itching, Starting on Fri12/26/11 at 1325, Until Fri12/27/11 at 1613 Given 12/26/2011 2:56 PM EDT iohexol (OMNIPAQUE) radiology oral prep (50 mL of oral contrast) 250 mL 250 mL, Oral, EVERY 1 HOUR PRN, [...] contrast 20 minutes before scan as tolerated Given 12/26/2011 5:17 PM EDT 250 mLs Given 12/26/2011 4:45 PM EDT 250 mLs Given 12/26/2011 3:40 PM EDT 250 mLs sodium chloride 0.9 % flush 5 mL 5 mL, Intravenous, EVERY 12 HOURS, First dose on Fri12/25/11 at 1700, Until Discontinued Given 12/27/2011 5:30 AM EDT 5 mLs Given 12/26/2011 5:00 PM EDT 5 mLs Given 12/26/2011 5:00 AM EDT 5 mLs sodium chloride 0.9% 500 mL IV bolus Intravenous, ONCE, 1 dose, On Shazia 12/26/11 at 0700 Given by Other 12/26/2011 7:00 AM EDT sodium chloride 0.9% infusion 200 mL/hr, Intravenous, CONTINUOUS, Starting on Fri12/26/11 at 1600, Until Fri12/26/11 at 2059 New Bag 12/26/2011 4:48 PM EDT 200 mL/hr 200 mL/hr documented in this encounter Active and [...] Provider: Ale Marie, ELIZABETH)1700 (Given - Provider: Tarcy Ron RN - Comment: continuous infusion normal saline) 0530 (Given - Provider: Crystal Carbone RN) sodium chloride 0.9% 500 mL IV bolus (COMPLETED) Intravenous, ONCE, 1 dose, On Fri12/26/11 at 0700 0700 (Given by Other - Provider: Wanda Rock, RN) Continuous Medication Order 12/25/2011 12/26/2011 12/27/2011 sodium chloride 0.9% infusion () 200 mL/hr, Intravenous, CONTINUOUS, Starting on Fri12/26/11 at 1600, Until Fri12/26/11 at 2059 1648 (New Bag - Provider: Isamar Rivas RN) PRN Medication Order 12/25/2011 12/26/2011 12/27/2011 amitriptyline (ELAVIL) tablet 50 mg (CANCELED) 50 mg, Oral, NIGHTLY PRN, Starting on Fri12/25/11 at 2209, Until Fri12/27/11 at 0035, insomnia, Routine 0000 (Given - Provider: Ale Marie, ELIZABETH)2206 (Given - Provider: Tracy Ron, ELIZABETH) fentaNYL 50mcg/mL injection (CANCELED) ONCE PRN, Starting on Fri12/25/11 at 1801, Until Fri12/27/11 at 1613, Pain, Intra-Operative (Intra-Procedure), Routine 1801 (Given - Provider: Belkis Tineo, ELIZABETH) gadopentetate dimeglumine (MAGNEVIST) injection 19 mL (COMPLETED) 19 mL (0.2 mL/kg/dose ? 93.8 kg), Intravenous, ONCE PRN, Per Protocol, Starting on Fri12/27/11 at 0743, 1 dose, Until Fri12/27/11 at 0743 0743 (Given - Provider: Gabbi Doshi) hydrocortisone 0.5 % cream (CANCELED) Topical, 2 TIMES DAILY PRN, PRN rectal itching, Starting on Fri12/26/11 at 1325, Until Fri12/27/11 at 1613 1456 (Given - Provider: Wanda Rock, ELIZABETH) iohexol (OMNIPAQUE) radiology oral prep (50 mL [...] Wanda Rock, RN)1645 (Given - Provider: Wanda Rock RN)1717 (Given - Provider: Tracy Ron RN) lidocaine [...] RN) documented in this encounter Care Teams Sweeper Operator Highways Relationship Specialty Start Date End Date Diana Booker MD [address] [place] [address] PCP - General 05/22/10 09/11/17 documented as of this encounter
--- OUTSIDE RECORDS SUMMARY | 2024-03-12 00:12 | XMS_ITS | Encounter Summary ---
Author Organization [facility] [place] [address] Care Team Providers Care Cardiac Cath Lab Technologist Name Role Phone Diana Weaver MD Primary Care Provider [phone] Reason for Visit * Reason Onset Date Comments Results 01/12/2012 Encounter Details Date Type Department Care Team (Late st Contact Info) Description 01/12/2012 Telephone Cardiology at [address] [id number] Kurt Hernández MD [facility] [place] [address] Results Social History Tobacco Use Types Packs/Day [...] encounter Miscellaneous Notes * Telephone Encounter - Kurt Hernández MD - 01/12/2012 11:49 AM EDT Called patient again to discuss results as left voicemail at last attempt. Pt did have 1 sample of pericardial fluid culture 12/24 that was positive for coag negative staph susc to oxacillin. 2 other samples of pericardial fluid were negative for growth and AFB cultures of fluid were negative. Pathology was also negative for malignancy. Since discharge, pt continues to feel well and saw PCP last week and was without complaints. He denies any fevers, night sweats, chills, dysuria, sob and says hefeels better everyday. Given continued lack of signs and symptoms concerning for infection, feel that this isolated sample of pericardial fluid with coag negative staph is likely contaminant. Will f/u in cardiology clinic next week at which time, I will reassess for signs/symptoms of infection. documented in this encounter Plan of Treatment Not on file documented as of this encounter Visit Diagnoses Not on filedocumented in this encounter Care Teams Cardiac Cath Lab Technologist Relationship Specialty Start Date End Date Diana Weaver MD [address] [place] [address] PCP - General 05/22/10 09/11/17 documented as of this encounter
--- OUTSIDE RECORDS SUMMARY | 2024-03-12 00:12 | XMS_ITS | Encounter Summary ---
Author Organization [facility] [place] [address] Care Team Providers Care Sap Bpc Developer Name Role Phone Diana Weaver MD Primary Care Provider [phone] Encounter Details Date Type Department Care Team (Late st Contact Info) Description 01/15/2012 12:56 PM EDT - 01/15/2012 11:59 PM EDT Hospital Encounter Non-Invasive [place] [id number] CARDIO, ECHO SIXTY MIN APPT None Nic Tran II, MD [facility] [place] [address] Pericardial effusion Discharge Disposition: Home Social History [...] needed. 25 mg - 50 mg prn amitriptyline (ELAVIL) 25 mg tablet Take 25 mg by mouth nightly. 02/23/2014 tadalafil (CIALIS) 5 mg tablet Take 5 mg by mouth daily. 03/30/2013 clindamycin (CLEOCIN) 150 mg capsule Take 150 [...] Name Priority Date/Time Associated Diagnosis Comments ECHOCARDIOGRAM LIMITED Routine 2 1:43 PM EDT Pericardial effusion documented in this encounter Results * Echocardiogram limited (01/15/2012 1:43 PM EDT) EF 65 HEARTEthical Ocean SYSTEM Anatomical Region Laterality Modality Other 01/15/2012 Narrative 01/15/2012 2:16 PM EDT Procedure: ? Transthoracic Echocardiogram Patient: ? PODHURST ALVIN L ?(Age): 1945(66) Med Rec#: ?[id number] ? Sex: ?M ? Site Loc: ?[facility] ? Ht / Wt: ??180(cm)/94(kg) Pt. Loc: ? Echo Lab ? BSA: ?2.17 Study Date: ?01/15/2012 ? Pt. Type: Outpatient Tape: ? Referring: Nic Tran Plywood Factory Worker: Lara Valerio Diagnosis:CPT Code(s): ??Color Doppler (88249), ??Doppler LTD (57255), Echo LTD (17626), Indication(s): ??Pericardial effusion, R/O Rhythm: Sinus HR [...] ? Mid-Inferior ?Normal ? Mid-Inferoseptal ?Normal ? Powers-Septal ? Normal ? Powers-Anterior ? Normal ? Powers-Lateral ?Normal ? Powers-Inferior ? Normal ? Powers-Tip ?Normal ? Chambers ?Value ?Units (Range) ? [...] ree ? 2.3 ?m/sec ? RAP ? 3 ?mmHg ? RVSP/PASP ? 25 ? mmHg ? This report has been electronically signed by: Matt Melgar M.D. ? 01/15/2012 14:16:10 Images reviewed and interpretation verified [facility] Cardiac Ultrasound Laboratory Procedure Note Matt Melgar MD - 01/15/2012 Procedure: Transthoracic Echocardiogram Patient: LORIN Eats DOB(Age): 1945(66) Med Rec#: [id number] Sex: M Site Loc: [facility] Ht / Wt: 180(cm)/94(kg) Pt. Loc: Echo Lab BSA: 2.17 Study Date: 01/15/2012 Pt. Type: Outpatient Tape: Referring: Nic Tran Plywood Factory Worker: Lara Valerio Diagnosis:CPT Code(s): Color Doppler (53176), Doppler LTD (69469), Echo LTD (44119), Indication(s): Pericardial effusion, R/O Rhythm: Sinus HR [...] Normal Mid-Posterolateral Normal Mid-Inferior Normal Mid-Inferoseptal Normal Powers-Septal Normal Powers-Anterior Normal Powers-Lateral Normal Powers-Inferior Normal Powers-Tip Normal Chambers Value Units (Range) LV EF [...] This report has been electronically signed by: Yoselin Melgar M.D. 01/15/2012 14:16:10 Images reviewed and interpretation verified [facility] Cardiac Ultrasound Laboratory Nic Tran II, MD ECHO ORDERABLES documented in this encounter Visit Diagnoses Diagnosis Pericardial effusion Unspecified disease of pericardium documented in this encounter Care Teams Sap Bpc Developer Relationship Specialty Start Date End Date Diana Weaver MD [address] [place] [id number] PCP - General 05/22/10 09/11/17 documented as of this encounter
--- OUTSIDE RECORDS SUMMARY | 2024-03-12 00:12 | XMS_ITS | Encounter Summary ---
[place] [address] Care Team Providers Care Hospital Ward Clerk Name Role Phone Diana Weaver MD Primary Care Provider [phone] Encounter Details Date Type Department Care Team (Late st Contact Info) Description 01/09/2011 [place] [address] Geeta Land, RN Social History Tobacco Use Types Packs/Day Years Used Date Smoking Tobacco: Never Assessed Sex and Gender Information Value Date Recorded Sex Assigned at Not on file Gender Identity Not on file Sexual Orientation Not on file documented as of this encounter Plan of Treatment Not on file documented as of this encounter Visit Diagnoses Not on filedocumented in this encounter Care Teams Hospital Ward Clerk Relationship Specialty Start Date End Date Diana Weaver MD [address] [place] [address] PCP - General 05/22/10 09/11/17 documented as of this encounter
--- OUTSIDE RECORDS SUMMARY | 2024-03-12 00:12 | XMS_ITS | Encounter Summary ---
[place] [address] Care Team Providers Care German Professor Name Role Phone Diana Weaver MD Primary Care Provider [phone] Reason for Visit * Reason Onset Date Comments Results 01/04/2012 Encounter Details Date Type Department Care Team (Late st Contact Info) Description 01/04/2012 Telephone Cardiology at [address] [address] Kurt Hernández MD [facility] [place] [address] Results Social History Tobacco Use Types Packs/Day [...] Telephone Encounter - Kurt Hernández MD - 01/04/2012 6:48 PM EDT Left voicemail with patient regarding results of f/u echo for pericardial effusion. No residual effusion. documented in this encounter Plan of Treatment Not on file documented as of this encounter Visit Diagnoses Not on filedocumented in this encounter Care Teams German Professor Relationship Specialty Start Date End Date Diana Weaver MD [address] [place] [address] PCP - General 05/22/10 09/11/17 documented as of this encounter
--- OUTSIDE RECORDS SUMMARY | 2024-03-12 00:12 | XMS_ITS | Encounter Summary ---
Author Organization [facility] [place] [address] Care Team Providers Care Compounding Scaler Name Role Phone Diana Weaver MD Primary Care Provider [phone] Encounter Details Date Type Department Care Team (Late st Contact Info) Description 04/19/2011 Orders [place] [address] Oliver Carter MD [facility] [place] [address] Left shoulder pain (Primary Dx) Social History Tobacco Use [...] as of this encounter Visit Diagnoses Diagnosis Left shoulder pain- Primary Pain in joint, shoulder region documented in this encounter Care Teams Compounding Scaler Relationship Specialty Start Date End Date Diana Weaver MD [address] [place] [address] PCP - General 05/22/10 09/11/17 documented as of this encounter
--- OUTSIDE RECORDS SUMMARY | 2024-03-12 00:12 | XMS_ITS | Encounter Summary ---
Author Organization [facility] [place] [address] Care Team Providers Care Director Of Manufacturing Operations Name Role Phone Diana Weaver MD Primary Care Provider [phone] Encounter Details Date Type Department Care Team (Late st Contact Info) Description 03/18/2013 Orders Only [place] [address] Ed Post MD [facility] [place] [address] H/O arthroplasty (Primary Dx) Social History Tobacco Use Types [...] as of this encounter Results * XR knee bilateral [...] in this encounter Visit Diagnoses Diagnosis H/O arthroplasty- Primary Personal history of surgery to other organs H/O arthroplasty Personal history of surgery to other organs documented in this encounter Care Teams Director Of Manufacturing Operations Relationship Specialty Start Date End Date Diana Weaver MD [address] [place] [address] PCP - General 05/22/10 09/11/17 documented as of this encounter
--- OUTSIDE RECORDS SUMMARY | 2024-03-12 00:13 | XMS_ITS | Clinical Summary ---
Author Organization [facility] Address [address] [place] [address] Care Team Providers Care Utility Bill Collector Name Role Phone Unknown, Provider Primary Care Provider Social History Tobacco Use Types Packs/Day Years Used Date Smoking Tobacco: Never Assessed Sex and Gender Information Value Date Recorded Sex Assigned at Not on file Gender Identity Not on file Sexual Orientation Not on file Plan of Treatment Health Maintenance Due Date Last Done Comments Hepatitis C Screen 1945 RSV Immunization ( o r 60+ Years) (1 - 1-dose 60+ series) 2005 Fall Risk Screening 2010 COVID-19 Vaccine (2022- season) 2024 Care Teams Utility Bill Collector Relationship Specialty Start Date End Date Unknown, Provider, PCP - General 06/16/09
--- OUTSIDE RECORDS SUMMARY | 2024-03-12 00:13 | XMS_ITS | Referral Summary ---
Author Organization [facility] Address [address] [place] [address] Care Team Providers Care Personnel Technician Name Role Phone Unknown, Provider Primary Care Provider Social History Tobacco Use Types Packs/Day Years Used Date Smoking Tobacco: Never Assessed Sex and Gender Information Value Date Recorded Sex Assigned at Not on file Gender Identity Not on file Sexual Orientation Not on file Plan of Treatment Not on file Care Teams Personnel Technician Relationship Specialty Start Date End Date Unknown, Provider, PCP - General 06/16/09
--- OUTSIDE RECORDS SUMMARY | 2024-03-12 00:13 | XMS_ITS | Encounter Summary ---
Author Organization [facility] Address [address] [place] [address] Care Team Providers Care Court Specialist Name Role Phone Unknown, Provider Primary Care Provider [phone] Encounter Details Date Type Department Care Team (Late st Contact Info) Description 10/24/2003 Results Only [facility] [address] [place] [address] Roger Pickering MD [address] [place] [address] Social History Tobacco Use Types Packs/Day Years Used Date Smoking Tobacco: Never Assessed Sex and Gender Information Value Date Recorded Sex Assigned at Not on file Gender Identity Not on file Sexual Orientation Not on file documented as of this encounter Plan of Treatment Not on file documented as of this encounter Procedures Procedure Name Priority Date/Time Associated Diagnosis Comments SURGICAL PATHOLOGY Routine 10/24/2003 0:00 EDT documented in this encounter Results * SURGICAL PATHOLOGY (10/24/2003 0:00 EDT) Pathology Report: SURGICAL PATHOLOGY REPORT Reports generated via electronic interface contain original data; however they are lacking the format of the original report. Caution should be taken when reading/interpreting unformatted reports. Name: ? ALVIN CAT ? Accession #: ? [id number] ? : ? 1945 (Age: 58) ??M ? Collect Date: ? 10/24/2003 ? Location: ? [facility] ? Receive Date: ? 10/24/2003 ? Provider: ROGER PICKERING MD Copy to: ANITHA BOOKER MD ? Final Pathologic Diagnosis: A. ?Colon, hepatic flexure, polyp, polypectomy: 1. ?Tubular adenoma with focal surface hyperplastic change. ??See comment. B. ?Rectum, polyp, polypectomy: 1. 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 ??See comment. Comment: ? This case was shown at intradepartmental consultation conference. ??Deeper levels have been examined on (A). (Dr. Chan)/[place] Document reviewed and electronically signed by: Katherine Lockhart MD Report ??Date: 10/28/2003 12:35 By the signature above, the attending physician certifies that he/she has personally conducted a gross and/or microscopic examination of the described specimens and rendered or confirmed the above diagnosis. Specimen(s) Received: ? Polyps: A. ?Hep flex (#1) B. ?Rectum (#2) Clinical History: ? Screening Gross Description: ? Received in Hollande's fixative labelled [place] and #1 polyp hepatic flex are two fragments of soft tissue, which measure 0.3 x 0.1 x 0.1 cm and 0.3 x 0.2 x 0.1 cm. ??The specimen is submitted entirely as (A). Received in Hollande's fixative labelled [place] and #2 polyp rectum is a polypoid portion of soft tissue, which measures 0.7 x 0.4 x 0.2 cm. ??The specimen is submitted entirely as (B). ?? (Dr. Chan)/brodie End of Report [facility] 10/24/2003 10/24/2003 15: 13 EDT Roger Pickering MD PATHOLOGY ORDERABLE S Performing Organization Address City/State/[facility] Co de Phone Number [facility] [address] [place] [address] documented in this encounter Visit Diagnoses Not on filedocumented in this encounter Care Teams Court Specialist Relationship Specialty Start Date End Date Unknown, Provider, PCP - General 06/16/09 documented as of this encounter
--- OUTSIDE RECORDS SUMMARY | 2024-03-12 00:13 | XMS_ITS | Encounter Summary ---
Author Organization [facility] [place] [address] Care Team Providers Care Entry Engineer Name Role Phone Unavailable Primary Care Provider Unavailabl e Encounter Details Date Type Department Care Team (Latest Contact Info) Description 04/03/2006 - 04/03/2006 11:59 PM EDT Hospital Encounter [place] [address] Washington Deluca MD [facility] [place] [address] Pain Discharge Disposition: Home Social History Tobacco [...] Associated Diagnosis Comments FILM LIBRARY STORAGE ONLY MR HEAD Routine 04/03/2006 12:00 AM EDT Pain documented in this encounter Results * Film Library- Storage only MR Head (04/03/2006 12:00 AM EDT) Narrative [facility] - 01/10/2016 9:05 AM EDT This exam is for storage only and is auto-finalizing. Washington Deluca MD G FILM LIBRARY O RDERABLES [place], [place] documented in this encounter Visit Diagnoses Diagnosis Pain Generalized pain documented in this encounter
--- OUTSIDE RECORDS SUMMARY | 2024-03-12 00:13 | XMS_ITS | Encounter Summary ---
[facility] [place] [address] Care Team Providers Care Fast Food Manager Name Role Phone Diana Weaver MD Primary Care Provider Encounter Details Date Type Department Care Team (Late st Contact Info) Description 05/09/2010 [place] [id number] Ed Post MD [facility] [address] Social History Tobacco Use Types Packs/Day Years Used Date Smoking Tobacco: Never Assessed Sex and Gender Information Value Date Recorded Sex Assigned at Not on file Gender Identity Not on file Sexual Orientation Not on file documented as of this encounter Plan of Treatment Not on file documented as of this encounter Procedures Procedure Name Priority Date/Time Associated Diagnosis Comments DIFFERENTIAL, AUTOMATED Routine 05/14/2010 5:59 AM EST CREATININE Routine 05/14/2010 5:59 AM EST PROTHROMBIN TIME Routine 05/14/2010 5:59 AM EST CBC (WITH DIFF) Routine 05/14/2010 5:59 AM EST BUN Routine 05/14/2010 5:59 AM EST ELECTROLYTES PANEL Routine 05/14/2010 5: 59 AM EST PROTHROMBIN TIME Routine 05/13/2010 6:28 AM EST PROTHROMBIN TIME Routine 05/12/2010 7:45 AM EST DIFFERENTIAL, AUTOMATED Routine 05/11/2010 4:50 AM EST CREATININE Routine 05/11/2010 4:50 AM EST PROTHROMBIN TIME Routine 05/11/2010 4:50 AM EST CBC (WITH DIFF) Routine 05/11/2010 4:50 AM EST BUN Routine 05/11/2010 4:50 AM EST ELECTROLYTES PANEL Routine 05/11/2010 4: 50 AM EST DIFFERENTIAL, AUTOMATED Routine 05/10/2010 9:50 AM EST CREATININE Routine 05/10/2010 9:50 AM EST CBC (WITH DIFF) Routine 05/10/2010 9:50 AM EST BUN Routine 05/10/2010 9:50 AM EST ELECTROLYTES PANEL Routine 05/10/2010 9: 50 AM EST PROTHROMBIN TIME Routine 05/10/2010 7:59 AM EST DIFFERENTIAL, AUTOMATED Routine 05/09/2010 7:08 AM EST CREATININE Routine 05/09/2010 7:08 AM EST APTT Routine 05/09/2010 7:08 AM EST PROTHROMBIN TIME Routine 05/09/2010 7:08 AM EST CBC (WITH DIFF) Routine 05/09/2010 7:08 AM EST BUN Routine 05/09/2010 7:08 AM EST ELECTROLYTES PANEL Routine 05/09/2010 7: 08 AM EST SURGICAL PATHOLOGY REPORT Routine 05/08/2010 9:52 AM EST documented in this encounter Results * ELECTROLYTE PANEL (05/14/2010 5:59 AM EST) Sodium 135 135 - 145 mmol/L CERNER MILLENNIUM Potassium 4.1 3.5 - 5.0 mmol/L CERNER MILLENNIUM Comment: Please note: ??Patients with WBC >100,000 may have falsely elevated Potassium levels. ??For accurate Potassium quantification in these patients send serum separator tube (gold top) for subsequent determinations. ??Contact the Clinical Chemistry Laboratory if there are any questions. Chloride 100 98 - 107 mmol/L CERNER MILLENNIUM Carbon Dioxide 27 22 - 31 mmol/L CERNER MILLENNIUM Anion Gap 8 5 - 15 mmol/L CERNER MILLENNIUM Blood specimen (specimen) 05/14/2010 5:59 AM EST 05/14/2010 6:25 AM EST Ed Post MD CHEMISTRY ORDERABLES [facility] * CREATININE, SERUM (05/14/2010 5:59 AM EST) Creatinine 0.88 0.80 - 1.50 mg/dL CERNER MILLENNIUM Est Glomerular Filtration Rate >60 >=60 CERNER MILLENNIUM Comment: The National Kidney Disease Education Program (NKDEP) has recommended all laboratories report estimated GFR (eGFR) along with plasma creatinine measurements to assist you with recognition of early kidney disease. Caveats: ??Plasma creatinine should be at steady-state (unchanged within the past week). ??Patient age > = 18 years, and for Americans multiply eGFR by 1.2. At present, NKDEP does NOT recommend using [...] with diabetic kidney disease. References: http://nkdep.nih.gov/resources/NKDEP_Suggestn4Labs_0606_508.pdf http://www.kidney.org/professionals/kls/pdf/faq_gfr.pdf Blood specimen (specimen) 05/14/2010 5:59 AM EST 05/14/2010 6:25 AM EST Ed Post MD CHEMISTRY ORDERABLES Performing Organization Address [facility] de Phone Number [facility] * BUN (05/14/2010 5:59 AM EST) Blood Urea Nitrogen 12 10 - 20 mg/dL [facility] Blood specimen (specimen) 05/14/2010 5:59 AM EST 05/14/2010 6:25 AM EST Ed Post MD CHEMISTRY ORDERABLES Performing Organization Address [facility] [place] Phone Number [facility] * (ABNORMAL) PROTIME-INR (05/14/2010 5:59 AM EST) Prothrombin Time 47.8(H) 11.8 - 15.0 sec [facility]ENCOM[facility] Comment: [facility] Transfusion Committee Guidelines: INR less than 2.0, PTT less than OR equal to 43.5 seconds, or Fibrinogen greater than or equal to 100 mg/dl indicate adequate procoagulant activity for hemostasis in patients without underlying bleeding disorders. International Normalization Ratio 4.8(H) 0.9 - 1.1 [facility] Blood specimen (specimen) 05/14/2010 5:59 AM EST 05/14/2010 6:25 AM EST Ed Post MD HEMATOLOGY ORDERABLE S CERNER MILLENNIUM * (ABNORMAL) REFLEX LAB-A-DIFF (05/14/2010 5:59 AM EST) Neutrophil % 65.2 34.0 - 71.0 % CERNER MILLENNIUM Neutrophil Absolute 4.88 1.50 - 6.30 x10(3)/mc L CERNER MILLENNIUM Lymph % 18.2(L) 19.0 - 53.0 % CERNER MILLENNIUM Lymphocytes Abs 1.4 1.0 - 3.6 x10(3)/mc L CERNER MILLENNIUM Monocyte % 12.4 4.0 - 13.0 % CERNER MILLENNIUM Monocyte Abs 0.9 0.2 - 1.0 x10(3)/mc L CERNER MILLENNIUM Eos % 3.5 0.0 - 7.0 % CERNER MILLENNIUM Eosinophils Abs 0.3 0.0 - 0.5 x10(3)/mc L CERNER MILLENNIUM Basophil % 0.4 0.0 - 2.0 % CERNER MILLENNIUM Baso Absolute 0.0 0.0 - 0.2 x10(3)/mc L CERNER MILLENNIUM Immature Gran % 0.30 0.00 - 0.66 % CERNER MILLENNIUM Comment: Immature granulocytes(IG's)percentage and absolute count will include metamyelocytes, myelocytes, and promyelocytes. Blood smears from CBC's yielding IG's will be scanned manually for concordance. If this scan disagrees with the automated IG or if promyelocytes are noted, a manual differential will be performed. Immature Gran Absolute 0.02 0.00 - 0.05 x10(3)/mc L CERNER MILLENNIUM Blood specimen (specimen) 05/14/2010 5:59 AM EST 05/14/2010 6:25 AM EST Ed Post MD HEMATOLOGY ORDERABLE S CERCAMILA MILLENNIUM * (ABNORMAL) CBC (05/14/2010 5:59 AM EST) White Blood Cell 7.5 4.0 - 10.0 x10(3)/mc L CERNER MILLENNIUM Red Blood Cell 2.67(L) 4.63 - 6.08 x10(6)/mc L CERNER MILLENNIUM Hemoglobin 8.5(L) 13.7 - 17.5 gm/dL CERNER MILLENNIUM Hematocrit 24.9(L) 40.0 - 51.0 % CERNER MILLENNIUM Mean Cell Volume 93.3(H) 79.0 - 92.0 fL CERNER MILLENNIUM Mean Cell Hemoglobin 31.8 25.6 - 32.2 pg CERNER MILLENNIUM Mean Cell Hemoglobin Concentration 34.1 32.0 - 36.5 gm/dL CERNER MILLENNIUM Platelet 402(H) 145 - 370 x10(3)/mc L CERNER MILLENNIUM RDW Standard Deviation 48.7(H) 35.0 - 46.0 fL CERNER MILLENNIUM RDW coefficient of variation 14.1 10.9 - 14.4 % CERNER MILLENNIUM Mean Platelet Volume 9.0 9.0 - 12.0 fL CERNER MILLENNIUM Blood specimen (specimen) 05/14/2010 5:59 AM EST 05/14/2010 6:25 AM EST Ed Post MD HEMATOLOGY ORDERABLE S Performing Organization Address City/State/[facility] de Phone Number EDUARDO DIAZ * (ABNORMAL) PROTIME-INR (05/13/2010 6:28 AM EST) Prothrombin Time 37.2(H) 11.8 - 15.0 sec CERNER MILLENNIUM Comment: [facility] Transfusion Committee Guidelines: INR less than 2.0, PTT less than OR equal to 43.5 seconds, or Fibrinogen greater than or equal to 100 mg/dl indicate adequate procoagulant activity for hemostasis in patients without underlying bleeding disorders. International Normalization Ratio 3.6(H) 0.9 - 1.1 CERNER MILLENNIUM Blood specimen (specimen) 05/13/2010 6:28 AM EST 05/13/2010 6:54 AM EST Ed Post MD HEMATOLOGY ORDERABLE S Performing Organization Address City/[facility] Co de Phone Number EDUARDO DIAZ * (ABNORMAL) PROTIME-INR (05/12/2010 7:45 AM EST) Prothrombin Time 28.9(H) 11.8 - 15.0 sec CERNER MILLENNIUM Comment: [facility] Transfusion Committee Guidelines: INR less than 2.0, PTT less than OR equal to 43.5 seconds, or Fibrinogen greater than or equal to 100 mg/dl indicate adequate procoagulant activity for hemostasis in patients without underlying bleeding disorders. International Normalization Ratio 2.6(H) 0.9 - 1.1 CERNER MILLENNIUM Blood specimen (specimen) 05/12/2010 7:45 AM EST 05/12/2010 8:10 AM EST Ed Post MD HEMATOLOGY ORDERABLE S Performing Organization Address [facility] de Phone Number EDUARDO DIAZ * CREATININE, SERUM (05/11/2010 4:50 AM EST) Creatinine 1.01 0.80 - 1.50 mg/dL CERNER MILLENNIUM Est Glomerular Filtration Rate >60 >=60 CERNER MILLENNIUM Comment: The National Kidney Disease Education Program (NKDEP) has recommended all laboratories report estimated GFR (eGFR) along with plasma creatinine measurements to assist you with recognition of early kidney disease. Caveats: ??Plasma creatinine should be at steady-state (unchanged within the past week). ??Patient age > = 18 years, and for Americans multiply eGFR by 1.2. At present, NKDEP does NOT recommend using [...] with diabetic kidney disease. References: http://nkdep.nih.gov/resources/NKDEP_Suggestn4Labs_0606_508.pdf http://www.kidney.org/professionals/kls/pdf/faq_gfr.pdf Blood specimen (specimen) 05/11/2010 4:50 AM EST 05/11/2010 5:13 AM EST Ed Post MD CHEMISTRY ORDERABLES Performing Organization Address [facility] Phone Number CERCAMILA MCCORDENNIUM * BUN (05/11/2010 4:50 AM EST) Blood Urea Nitrogen 10 10 - 20 mg/dL CERNER MILLENNIUM Blood specimen (specimen) 05/11/2010 4:50 AM EST 05/11/2010 5:13 AM EST Ed Post MD CHEMISTRY ORDERABLES Performing Organization Address [facility] Phone Number CERNER MILLENNIUM * ELECTROLYTE PANEL (05/11/2010 4:50 AM EST) Sodium 136 135 - 145 mmol/L CERNER [...] - 107 mmol/L CERNER MILLENNIUM Carbon Dioxide 28 22 - 31 mmol/L CERNER MILLENNIUM Anion Gap 7 5 - 15 mmol/L CERNER MILLENNIUM Blood specimen (specimen) 05/11/2010 4:50 AM EST 05/11/2010 5:13 AM EST Ed Post MD CHEMISTRY ORDERABLES Performing Organization Address [facility] Phone Number CERCAMILA MCCORDENNIUM * (ABNORMAL) PROTIME-INR (05/11/2010 4:50 AM EST) Prothrombin Time 23.6(H) 11.8 - 15.0 sec CERNER MILLENNIUM Comment: [facility] Transfusion Committee Guidelines: INR less than 2.0, PTT less than OR equal to 43.5 seconds, or Fibrinogen greater than or equal to 100 mg/dl indicate adequate procoagulant activity for hemostasis in patients without underlying bleeding disorders. International Normalization Ratio 2.0(H) 0.9 - 1.1 CERNER MILLENNIUM Blood specimen (specimen) 05/11/2010 4:50 AM EST 05/11/2010 5:13 AM EST Ed Post MD HEMATOLOGY ORDERABLE S CERNER MILLENNIUM * (ABNORMAL) REFLEX LAB-A-DIFF (05/11/2010 4:50 AM EST) Neutrophil % 60.8 34.0 - 71.0 % CERNER MILLENNIUM Neutrophil Absolute 3.61 1.50 - 6.30 x10(3)/mc L CERNER MILLENNIUM Lymph % 23.3 19.0 - 53.0 % CERNER MILLENNIUM Lymphocytes Abs 1.4 1.0 - 3.6 x10(3)/mc L CERNER MILLENNIUM Monocyte % 13.5(H) 4.0 - 13.0 % CERNER MILLENNIUM Monocyte Abs 0.8 0.2 - 1.0 x10(3)/mc L CERNER MILLENNIUM Eos % 1.9 0.0 - 7.0 % CERNER MILLENNIUM Eosinophils Abs 0.1 0.0 - 0.5 x10(3)/mc L CERNER MILLENNIUM Basophil % 0.2 0.0 - 2.0 % CERNER MILLENNIUM Baso Absolute 0.0 0.0 - 0.2 x10(3)/mc L CERNER MILLENNIUM Immature Gran % 0.30 0.00 - 0.66 % CERNER MILLENNIUM Comment: Immature granulocytes(IG's)percentage and absolute count will include metamyelocytes, myelocytes, and promyelocytes. Blood smears from CBC's yielding IG's will be scanned manually for concordance. If this scan disagrees with the automated IG or if promyelocytes are noted, a manual differential will be performed. Immature Gran Absolute 0.02 0.00 - 0.05 x10(3)/mc L CERNER MILLENNIUM Blood specimen (specimen) 05/11/2010 4:50 AM EST 05/11/2010 5:13 AM EST Ed Post MD HEMATOLOGY ORDERABLE S Performing Organization Address City/[facility]/ZIP Co de Phone Number CERNER MILLENNIUM * (ABNORMAL) CBC (05/11/2010 4:50 AM EST) White Blood Cell 5.9 4.0 - 10.0 x10(3)/mc L CERNER MILLENNIUM Red Blood Cell 2.56(L) 4.63 - 6.08 x10(6)/mc L CERNER MILLENNIUM Hemoglobin 8.1(L) 13.7 - 17.5 gm/dL CERNER MILLENNIUM Hematocrit 24.6(L) 40.0 - 51.0 % CERNER MILLENNIUM Mean Cell Volume 96.1(H) 79.0 - 92.0 fL CERNER MILLENNIUM Mean Cell Hemoglobin 31.6 25.6 - 32.2 pg CERNER MILLENNIUM Mean Cell Hemoglobin Concentration 32.9 32.0 - 36.5 gm/dL CERNER MILLENNIUM Platelet 251 145 - 370 x10(3)/mc L CERNER MILLENNIUM RDW Standard Deviation 51.1(H) 35.0 - 46.0 fL CERNER MILLENNIUM RDW coefficient of variation 14.6(H) 10.9 - 14.4 % CERNER MILLENNIUM Mean Platelet Volume 9.3 9.0 - 12.0 fL CERNER MILLENNIUM Blood specimen (specimen) 05/11/2010 4:50 AM EST 05/11/2010 5:13 AM EST Ed Post MD HEMATOLOGY ORDERABLE S CERNER MILLENNIUM * (ABNORMAL) ELECTROLYTE PANEL (05/10/2010 9:50 AM EST) Sodium 134(L) 135 - 145 mmol/L CERNER MILLENNIUM Potassium 3.8 3.5 - 5.0 mmol/L CERNER MILLENNIUM Comment: Please note: ??Patients with WBC >100,000 may have falsely elevated Potassium levels. ??For accurate Potassium quantification in these patients send serum separator tube (gold top) for subsequent determinations. ??Contact the Clinical Chemistry Laboratory if there are any questions. Chloride 98 98 - 107 mmol/L CERNER MILLENNIUM Carbon Dioxide 29 22 - 31 mmol/L CERNER MILLENNIUM Anion Gap 7 5 - 15 mmol/L CERNER MILLENNIUM Blood specimen (specimen) 05/10/2010 9:50 AM EST 05/10/2010 10:04 AM EST Ed Post MD CHEMISTRY ORDERABLES CERNER MILLENNIUM * CREATININE, SERUM (05/10/2010 9:50 AM EST) Creatinine 1.02 0.80 - 1.50 mg/dL CERNER MILLENNIUM Est Glomerular Filtration Rate >60 >=60 CERNER MILLENNIUM Comment: The National Kidney Disease Education Program (NKDEP) has recommended all laboratories report estimated GFR (eGFR) along with plasma creatinine measurements to assist you with recognition of early kidney disease. Caveats: ??Plasma creatinine should be at steady-state (unchanged within the past week). ??Patient age > = 18 years, and for Americans multiply eGFR by 1.2. At present, NKDEP does NOT recommend using [...] with diabetic kidney disease. References: http://nkdep.nih.gov/resources/NKDEP_Suggestn4Labs_0606_508.pdf http://www.kidney.org/professionals/kls/pdf/faq_gfr.pdf Blood specimen (specimen) 05/10/2010 9:50 AM EST 05/10/2010 10:04 AM EST Ed Post MD CHEMISTRY ORDERABLES CERNER MILLENNIUM * BUN (05/10/2010 9:50 AM EST) Blood Urea Nitrogen 11 10 - 20 mg/dL CERNER MILLENNIUM Blood specimen (specimen) 05/10/2010 9:50 AM EST 05/10/2010 10:04 AM EST Ed Post MD CHEMISTRY ORDERABLES Performing Organization Address City/[facility]/ZIP Co de Phone Number CERNER MILLENNIUM * REFLEX LAB-A-DIFF (05/10/2010 9:50 AM EST) Neutrophil % 66.8 34.0 - 71.0 % CERNER MILLENNIUM Neutrophil Absolute 5.81 1.50 - 6.30 x10(3)/mcL CERNER MILLENNIUM Lymph % 20.8 19.0 - 53.0 % CERNER MILLENNIUM Lymphocytes Abs 1.8 1.0 - 3.6 x10(3)/mcL CERNER MILLENNIUM Monocyte % 11.3 4.0 - 13.0 % CERNER MILLENNIUM Monocyte Abs 1.0 0.2 - 1.0 x10(3)/mcL CERNER MILLENNIUM Eos % 0.7 0.0 - 7.0 % CERNER MILLENNIUM Eosinophils Abs 0.1 0.0 - 0.5 x10(3)/mcL CERNER MILLENNIUM Basophil % 0.2 0.0 - 2.0 % CERNER MILLENNIUM Baso Absolute 0.0 0.0 - 0.2 x10(3)/mcL CERNER MILLENNIUM Immature Gran % 0.20 0.00 - 0.66 % CERNER MILLENNIUM Comment: Immature granulocytes(IG's)percentage and absolute count will include metamyelocytes, myelocytes, and promyelocytes. Blood smears from CBC's yielding IG's will be scanned manually for concordance. If this scan disagrees with the automated IG or if promyelocytes are noted, a manual differential will be performed. Immature Gran Absolute 0.02 0.00 - 0.05 x10(3)/mcL CERNER MILLENNIUM Blood specimen (specimen) 05/10/2010 9:50 AM EST 05/10/2010 10:04 AM EST Ed Post MD HEMATOLOGY ORDERABLE S CERCAMILA MCCORDENNIUM * (ABNORMAL) CBC (05/10/2010 9:50 AM EST) White Blood Cell 8.7 4.0 - 10.0 x10(3)/mc L CERNER MILLENNIUM Red Blood Cell 2.82(L) 4.63 - 6.08 x10(6)/mc L CERNER MILLENNIUM Hemoglobin 9.0(L) 13.7 - 17.5 gm/dL CERNER MILLENNIUM Hematocrit 26.7(L) 40.0 - 51.0 % CERNER MILLENNIUM Mean Cell Volume 94.7(H) 79.0 - 92.0 fL CERNER MILLENNIUM Mean Cell Hemoglobin 31.9 25.6 - 32.2 pg CERNER MILLENNIUM Mean Cell Hemoglobin Concentration 33.7 32.0 - 36.5 gm/dL CERNER MILLENNIUM Platelet 264 145 - 370 x10(3)/mc L CERNER MILLENNIUM RDW Standard Deviation 50.9(H) 35.0 - 46.0 fL CERNER MILLENNIUM RDW coefficient of variation 14.7(H) 10.9 - 14.4 % CERNER MILLENNIUM Mean Platelet Volume 9.3 9.0 - 12.0 fL CERNER MILLENNIUM Blood specimen (specimen) 05/10/2010 9:50 AM EST 05/10/2010 10:04 AM EST Ed Post MD HEMATOLOGY ORDERABLE S Performing Organization Address City/[facility]/ZIP Co de Phone Number CERCAMILA MCCORDENNIUM * (ABNORMAL) PROTIME-INR (05/10/2010 7:59 AM EST) Prothrombin Time 23.0(H) 11.8 - 15.0 sec CERNER MILLENNIUM Comment: [facility] Transfusion Committee Guidelines: INR less than 2.0, PTT less than OR equal to 43.5 seconds, or Fibrinogen greater than or equal to 100 mg/dl indicate adequate procoagulant activity for hemostasis in patients without underlying bleeding disorders. International Normalization Ratio 2.0(H) 0.9 - 1.1 CERNER MILLENNIUM Blood specimen (specimen) 05/10/2010 7:59 AM EST 05/10/2010 8:07 AM EST Ed Post MD HEMATOLOGY ORDERABLE S Performing Organization Address [facility] de Phone Number CERCAMILA MCCORDENNIUM * (ABNORMAL) ELECTROLYTE PANEL (05/09/2010 7:08 AM EST) Sodium 132(L) 135 - 145 mmol/L CERNER MILLENNIUM Potassium 3.9 3.5 - 5.0 mmol/L CERNER MILLENNIUM Comment: Please note: ??Patients with WBC >100,000 may have falsely elevated Potassium levels. ??For accurate Potassium quantification in these patients send serum separator tube (gold top) for subsequent determinations. ??Contact the Clinical Chemistry Laboratory if there are any questions. Chloride 99 98 - 107 mmol/L CERNER MILLENNIUM Carbon Dioxide 27 22 - 31 mmol/L CERNER MILLENNIUM Anion Gap 6 5 - 15 mmol/L CERNER MILLENNIUM Blood specimen (specimen) 05/09/2010 7:08 AM EST 05/09/2010 7:22 AM EST Ed Post MD CHEMISTRY ORDERABLES Performing Organization Address [facility] Co de Phone Number EDUARDO PICKENSIUM * CREATININE, SERUM (05/09/2010 7:08 AM EST) Creatinine 0.85 0.80 - 1.50 mg/dL CERNER MILLENNIUM Est Glomerular Filtration Rate >60 >=60 CERNER MILLENNIUM Comment: The National Kidney Disease Education Program (NKDEP) has recommended all laboratories report estimated GFR (eGFR) along with plasma creatinine measurements to assist you with recognition of early kidney disease. Caveats: ??Plasma creatinine should be at steady-state (unchanged within the past week). ??Patient age > = 18 years, and for Americans multiply eGFR by 1.2. At present, NKDEP does NOT recommend using [...] with diabetic kidney disease. References: http://nkdep.nih.gov/resources/NKDEP_Suggestn4Labs_0606_508.pdf http://www.kidney.org/professionals/kls/pdf/faq_gfr.pdf Blood specimen (specimen) 05/09/2010 7:08 AM EST 05/09/2010 7:22 AM EST Ed Post MD CHEMISTRY ORDERABLES Performing Organization Address [facility] de Phone Number [facility] * BUN (05/09/2010 7:08 AM EST) Blood Urea Nitrogen 11 10 - 20 mg/dL [facility] Blood specimen (specimen) 05/09/2010 7:08 AM EST 05/09/2010 7:22 AM EST Ed Post MD CHEMISTRY ORDERABLES Performing Organization Address [facility] de Phone Number [facility] * (ABNORMAL) APTT (05/09/2010 7:08 AM EST) Partial Thromboplastin Time 42(H) 25 - 37 sec [facility] Comment: Recommended therapeutic PTT range for full dose unfractionated heparin is 80-114 seconds. Blood specimen (specimen) 05/09/2010 7:08 AM EST 05/09/2010 7:22 AM EST Ed Post MD HEMATOLOGY ORDERABLE S Performing Organization Address [facility]/ZIP Co de Phone Number EDUARDO PICKENSIUM * (ABNORMAL) PROTIME-INR (05/09/2010 7:08 AM EST) Prothrombin Time 17.5(H) 11.8 - 15.0 sec CERNER MILLENNIUM Comment: [facility] Transfusion Committee Guidelines: INR less than 2.0, PTT less than OR equal to 43.5 seconds, or Fibrinogen greater than or equal to 100 mg/dl indicate adequate procoagulant activity for hemostasis in patients without underlying bleeding disorders. International Normalization Ratio 1.4(H) 0.9 - 1.1 CERNER MILLENNIUM Blood specimen (specimen) 05/09/2010 7:08 AM EST 05/09/2010 7:22 AM EST Ed Post MD HEMATOLOGY ORDERABLE S Performing Organization Address [facility]/ZIP Co de Phone Number CERCAMILA MCCORDENNIUM * (ABNORMAL) REFLEX LAB-A-DIFF (05/09/2010 7:08 AM EST) Neutrophil % 60.5 34.0 - 71.0 % CERNER MILLENNIUM Neutrophil Absolute 3.83 1.50 - 6.30 x10(3)/mc L CERNER MILLENNIUM Lymph % 25.3 19.0 - 53.0 % CERNER MILLENNIUM Lymphocytes Abs 1.6 1.0 - 3.6 x10(3)/mc L CERNER MILLENNIUM Monocyte % 13.6(H) 4.0 - 13.0 % CERNER MILLENNIUM Monocyte Abs 0.9 0.2 - 1.0 x10(3)/mc L CERNER MILLENNIUM Eos % 0.2 0.0 - 7.0 % CERNER MILLENNIUM Eosinophils Abs 0.0 0.0 - 0.5 x10(3)/mc L CERNER MILLENNIUM Basophil % 0.2 0.0 - 2.0 % CERNER MILLENNIUM Baso Absolute 0.0 0.0 - 0.2 x10(3)/mc L CERNER MILLENNIUM Immature Gran % 0.20 0.00 - 0.66 % CERNER MILLENNIUM Comment: Immature granulocytes(IG's)percentage and absolute count will include metamyelocytes, myelocytes, and promyelocytes. Blood smears from CBC's yielding IG's will be scanned manually for concordance. If this scan disagrees with the automated IG or if promyelocytes are noted, a manual differential will be performed. Immature Gran Absolute 0.01 0.00 - 0.05 x10(3)/mc L CERNER MILLENNIUM Blood specimen (specimen) 05/09/2010 7:08 AM EST 05/09/2010 7:22 AM EST Ed Post MD HEMATOLOGY ORDERABLE S CERCAMILA MCCORDENNIUM * (ABNORMAL) CBC (05/09/2010 7:08 AM EST) White Blood Cell 6.3 4.0 - 10.0 x10(3)/mc L CERNER MILLENNIUM Red Blood Cell 2.79(L) 4.63 - 6.08 x10(6)/mc L CERNER MILLENNIUM Hemoglobin 8.9(L) 13.7 - 17.5 gm/dL CERNER MILLENNIUM Hematocrit 26.1(L) 40.0 - 51.0 % CERNER MILLENNIUM Mean Cell Volume 93.5(H) 79.0 - 92.0 fL CERNER MILLENNIUM Mean Cell Hemoglobin 31.9 25.6 - 32.2 pg CERNER MILLENNIUM Mean Cell Hemoglobin Concentration 34.1 32.0 - 36.5 gm/dL CERNER MILLENNIUM Platelet 244 145 - 370 x10(3)/mc L CERNER MILLENNIUM RDW Standard Deviation 50.0(H) 35.0 - 46.0 fL CERNER MILLENNIUM RDW coefficient of variation 14.7(H) 10.9 - 14.4 % CERNER MILLENNIUM Mean Platelet Volume 9.7 9.0 - 12.0 fL CERNER MILLENNIUM Blood specimen (specimen) 05/09/2010 7:08 AM EST 05/09/2010 7:22 AM EST Ed Post MD HEMATOLOGY ORDERABLE S Performing Organization Address [facility]/State/[facility] Co de Phone Number [facility] * PATHOLOGY SURGICAL PATHOLOGY FINAL REPORT (05/08/2010 9:52 AM EST) Surgical Pathology Report ? [facility] ? Provider: ?? ED POST ?? Pt. Name: ?? ALVIN CAT ? Acc #: ?[id number] ?Pt. ? Col Date: ?? 05/08/2010 ? /Sex: ?1945,([age] years),Male ? Rec Date: ?? 05/08/2010 ? LOC: ?3[facility]ST ? SURGICAL PATHOLOGY ? ---Pathologic Diagnosis--- ? 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 bilateral knees. ?Gross surgical pathology examination. ? CR-0 ? 05/09/10 ? AJE ? 05/11/10 Verified by: ? Yumiko HILL, Ulises ? Pathologist ? (Electronic Signature) ? The attending pathologist whose signature appears on this report has ? reviewed all diagnostic slides and has edited the gross and/or ? microscopic portion of the report in rendering the final pathologic ? diagnosis. ? ---Gross Description--- ? Labeled/Fixativ e: ? Bone and tissue venancio knees, fresh. ? Quantity/Size: ?Multiple, 14.0 x 8.0 x 7.7 cm in aggregate. ? Tissue Description: ?? Fragments of yellow-white, hard, irregular bone, ? cartilage and soft tissue. ??The articular surfaces ? are granular, bassett-pink. ? Eburnation: ? Present. ? Osteophytes: ?Present. ? Sections/Proces sing: ??No sections are submitted. ??aje/PPS ? ---Clinical Information--- ? Specimen Submitted: ? A - Bone and tissue, venancio knees ? Clinical History: ? Not provided ? Clinical Diagnosis: ? DJD bilateral knees CERCAMILA MCCORDENNIUM 05/08/2010 9:52 AM EST Ed Post MD PATHOLOGY/CYTOLOGY O RDERABLES EDUARDO DIAZ documented in this encounter Visit Diagnoses Not on filedocumented in this encounter Care Teams Fast Food Manager Relationship Specialty Start Date End Date Diana Weaver MD [address] [place] [address] PCP - General 05/22/10 09/11/17 documented as of this encounter
--- OUTSIDE RECORDS SUMMARY | 2024-03-12 00:13 | XMS_ITS | Encounter Summary ---
Author Organization [facility] Address [address] [place] [address] Care Team Providers Care Occupational Health And Safety Officer Name Role Phone Unknown, Provider Primary Care Provider [phone] Encounter Details Date Type Department Care Team (Late st Contact Info) Description 05/20/2022 Lab Requisition [facility] Pathology & Laboratory Medicine - [address] [address] Outr Resulting Lab, Provider Social History Tobacco Use Types Packs/Day Years Used Date Smoking Tobacco: Never Assessed Sex and Gender Information Value Date Recorded Sex Assigned at Not on file Gender Identity Not on file Sexual Orientation Not on file documented as of this encounter Plan of Treatment Not on file documented as of this encounter Procedures Procedure Name Priority Date/Time Associated Diagnosis Comments ANTI NUCLEAR AB (OLEGARIO), IFA Routine 05/20/2022 9:30 EST PSA TOTAL, DIAGNOSTIC Routine 05/20/2022 9:30 EST documented in this encounter Results * PSA TOTAL, DIAGNOSTIC (05/20/2022 9:30 EST) PSA 0.9 <=6.5 ng/mL 05/20/2022 21:57 EST [facility] Blood VENOUS BLOOD / Unknown 05/20/2022 9:30 EST 05/20/2022 20:30 EST Narrative [facility] - 05/20/2022 21:57 EST NOTE: Serum PSA concentration should not be interpreted as absolute evidence for the presence or absence of malignant disease. Assayed on Siemens ADVIA Centaur XPT using chemiluminescent technology.??Values obtained by using different assay methods cannot be used interchangeably. Provider Outr Resulting Lab CHEMISTRY & BLOOD GAS ORDERABLES Performing Organization Address [facility] Co de Phone Number [facility] [address] [place] [address] * ANTI NUCLEAR AB (OLEGARIO), IFA (05/20/2022 9:30 EST) OLEGARIO Interpretation Negative Negative 2021 14:19 EST [facility] Comment:No titer performed, OLEGARIO Screen is negative. Blood VENOUS BLOOD / Unknown 05/20/2022 9:30 EST 05/20/2022 20:30 EST Narrative [facility] - 05/21/2022 14:19 EST Results were obtained with the INOVA NOVA Lite HEp-2 OLEGARIO Kit by indirect immunofluorescence. Provider Outr Resulting Lab IMMUNOLOGY A ND SEROLOGY ORDERABLES Performing Organization Address [facility] Co de Phone Number [facility] [address] [place] [address] documented in this encounter Visit Diagnoses Not on filedocumented in this encounter Care Teams Occupational Health And Safety Officer Relationship Specialty Start Date End Date Unknown, Provider, PCP - General 06/16/09 documented as of this encounter
--- OUTSIDE RECORDS SUMMARY | 2024-03-12 00:13 | XMS_ITS | Encounter Summary ---
Author Organization [facility] [place] [address] Care Team Providers Care Watch Inspector Final Movement Name Role Phone Washington Puckett MD Primary Care Provider [phone] Encounter Details Date Type Department Care Team (Late st Contact Info) Description 05/08/2010 [place] [address] Ed Post MD [facility] [place] [address] Social History Tobacco Use Types Packs/Day Years Used Date Smoking Tobacco: Never Assessed Sex and Gender Information Value Date Recorded Sex Assigned at Not on file Gender Identity Not on file Sexual Orientation Not on file documented as of this encounter Plan of Treatment Not on file documented as of this encounter Procedures Procedure Name Priority Date/Time Associated Diagnosis Comments SURGICAL PATHOLOGY REPORT Routine 05/08/2010 9:52 AM EST documented in this encounter Results * Surgical Pathology Report (05/08/2010 9:52 AM EST) Surgical Pathology Report [id number] ? Location: 3T; [facility]; A The signing pathologist has (i) examined the relevant preparation(s) for the specimen(s) and (ii) rendered or confirmed the diagnosis(es). . ?Pathology Surgical Pathology Final Report Clinical Information Specimen Submitted: A - Bone and tissue, venancio knees Clinical History: Not provided Clinical Diagnosis: DJD bilateral knees Gross Description Labeled/Fixativ e: ? Bone and tissue venancio knees, fresh. Quantity/Size: ?Multiple, 14.0 x 8.0 x 7.7 cm in aggregate. Tissue Description: ?? Fragments of yellow-white, hard, irregular bone, ?cartilage and soft tissue. ??The articular surfaces ?are granular, bassett-pink. ??Eburnation: ? Present. ??Osteophytes: ?Present. Sections/Proces sing: ??No sections are submitted. 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 ?? Gross surgical pathology examination. CR-0 05/09/10 AJE 05/11/10 Verified by: ? Yumiko HILL, Ulises ?Pathologist ?(Electronic Signature) The attending pathologist whose signature appears on this report has reviewed all diagnostic slides and has edited the gross and/or microscopic portion of the report in rendering the final pathologic diagnosis. EDUARDO DIAZ 05/08/2010 9:52 AM EST Ed Post MD PATHOLOGY/CYTOLOGY O RDERABLES EDUARDO DIAZ documented in this encounter Visit Diagnoses Not on filedocumented in this encounter Care Teams Watch Inspector Final Movement Relationship Specialty Start Date End Date Washington Puckett MD [address] [place] [address] PCP - General Internal Medicine 09/12/17 01/25/24 documented as of this encounter
--- OUTSIDE RECORDS SUMMARY | 2024-03-12 00:13 | XMS_ITS | Encounter Summary ---
Author Organization [facility] Address [address] [place] [address] Care Team Providers Care Elementary Special Education Teacher Name Role Phone Unavailable Primary Care Provider Unavailabl e Encounter Details Date Type Department Care Team (Late st Contact Info) Description 06/14/2009 Orders Only [facility] Medicine [address] [address] Nirav Huang MD [address] [place], [place] [id number] Social History Tobacco Use Types Packs/Day Years Used Date Smoking Tobacco: Never Assessed Sex and Gender Information Value Date Recorded Sex Assigned at Not on file Gender Identity Not on file Sexual Orientation Not on file documented as of this encounter Plan of Treatment Not on file documented as of this encounter Procedures Procedure Name Priority Date/Time Associated Diagnosis Comments SURGICAL PATHOLOGY Routine 06/14/2009 0:00 EST documented in this encounter Results * SURGICAL PATHOLOGY (06/14/2009 0:00 EST) Pathology Report: SURGICAL PATHOLOGY REPORT ? Reports generated via electronic interface contain original data; ? however they are lacking the format of the original report. ? Caution should be taken when reading/interpreting unformatted reports. ? Name: ? PODHURST, ALVIN ? Accession #: ? [id number] ? : ? 1945 (Age: 63) ??M ? Collect Date: ? 06/14/2009 ? Location: ? [facility] ? Receive Date: ? 06/14/2009 ? Provider: NIRAV WALKO MD ? Copy to: ANITHA FINE MD ? Final Pathologic Diagnosis: ? A. ?Colon, hepatic flexure, polyps, biopsies: ? 1. ?Tubular adenoma. ? 2. ? Polypoid fragments of benign colonic mucosa. ? B. ?Colon, transverse, polyp, biopsy: ? 1. ?Sessile serrated adenoma. ??See comment. ? Comment: ? Specimen (B) was reviewed at the intradepartmental consultation conference. (Dr. Rivas)/[facility] ? Document reviewed and electronically signed by: ? Ganga Rivas MD ? Report ??Date: 06/16/2009 14:18 ? By the signature above, the attending physician certifies that he/she has ? personally conducted a gross and/or microscopic examination of the described ? specimens and rendered or confirmed the above diagnosis. ? Specimen(s) Received: ? A. ?Hepatic flexure polyps x2 ? B. ? Transverse colon polyp ? Clinical History: ? H/O rectal cancer ? Gross Description: ? Received in Tamika's fixative labelled Vijayrstal, Alvin and hepatic ?? flexure polyps x2 are three polypoid biopsies each measuring 0.3 x 0.3 x 0.2 ?? cm. ??The specimens are submitted intact as (A). ? Received in Hollande's fixative labelled Podhurst, Alvin and transverse ? colon polyp is a 0.5 x 0.4 x 0.3 cm polypoid biopsy. ??The specimen is submitted intact as (B). (Taylor Cheung)/mpl ? End of Report ? [facility] 06/14/2009 06/14/2009 17: 53 EST Nirav Huang MD PATHOLOGY ORDERABLES [facility] [address] [place] [address] documented in this encounter Visit Diagnoses Not on filedocumented in this encounter
--- OUTSIDE RECORDS SUMMARY | 2024-03-12 00:13 | XMS_ITS | Encounter Summary ---
Author Organization [facility] [place] [address] Care Team Providers Care Furnace Combination Analyst Name Role Phone Diana Weaver MD Primary Care Provider [phone] Encounter Details Date Type Department Care Team (Late st Contact Info) Description 11/13/2010 7:31 AM EDT - 11/13/2010 11:59 PM EDT Hospital Encounter XRay at [address] [place] [address] Social History Tobacco Use Types Packs/Day Years Used Date Smoking Tobacco: Never Assessed Sex and Gender Information Value Date Recorded Sex Assigned at Not on file Gender Identity Not on file Sexual Orientation Not on file documented as of this encounter Medications at Time of Discharge Medication Sig Dispensed Refills Start Date End Date CIS Free Text Med - sawpalmetto 1 05/16/2011 CIS Free Text Med - garlic romi 011 05/16/2011 MULTIVITAMIN ORAL 08/22/2010 12/25/2011 GLUCOSAMINE HCL/CHONDRO NORTH A (GLUCOSAMINE-CHONDROITIN ORAL) 08/22/2010 01/15/2012 acetaminophen (TYLENOL EXTRA STRENGTH) 500 mg tablet 08/22/2010 01/10/2011 documented as of this encounter Plan of Treatment Not on file documented as of this encounter Procedures Procedure Name Priority Date/Time Associated Diagnosis Comments XR KNEE AP AND LAT BILAT Routine 11/13/2010 7:46 AM EDT documented in this encounter Results * XR KNEE BILATERAL1 OR 2 VIEW (11/13/2010 7:46 AM EDT) Anatomical Region Laterality Modality Knee Bilateral Radiographic Marsha ging 11/13/2010 7:46 AM EDT Narrative 11/13/2010 4:[address] Otto. ??cris verify/clarify. Thx. ?? EXAMINATION: BILATERAL KNEES. DATE OF EXAM: 11/13/10. CLINICAL HISTORY: Total knee arthroplasty, evaluate fracture healing. FINDINGS: As seen on the earlier study, dated 06/11/10, the patient is status post bilateral total knee arthroplasty. Joint effusions persist bilaterally. No acute injury is seen. As seen on the previous study, there is a well circumscribed area of lucency at the medial tibial plateau of the right pelvis. This appears to be unchanged. I do not see evidence of a displaced bony injury or acute injury. Procedure Note Wayne Richards MD - 11/13/2010 Dr Randal lynch verify/clarify. Thx. EXAMINATION: BILATERAL KNEES. DATE OF EXAM: 11/13/10. CLINICAL HISTORY: Total knee arthroplasty, evaluate fracture healing. FINDINGS: As seen on the earlier study, dated 06/11/10, the patient isstatus post bilateral total knee arthroplasty. Joint effusions persistbilaterally. No acute injury is seen. As seen on the previous study, there is a well circumscribed area of lucency at the medial tibial plateau of the right pelvis. This appears to be unchanged. I do not see evidence of adisplaced bony injury or acute injury. Ed Post MD IMG DX ORDERABLES documented in this encounter Visit Diagnoses Not on filedocumented in this encounter Care Teams Furnace Combination Analyst Relationship Specialty Start Date End Date Diana Weaver MD [address] [place] [address] PCP - General 05/22/10 09/11/17 documented as of this encounter
--- OUTSIDE RECORDS SUMMARY | 2024-03-12 00:13 | XMS_ITS | Encounter Summary ---
Author Organization [facility] Address [address] [place] [address] Care Team Providers Care Donation Specialist Name Role Phone Unknown, Provider Primary Care Provider [phone] Encounter Details Date Type Department Care Team (Late st Contact Info) Description 12/30/2019 Lab Requisition [facility] Pathology & Laboratory Medicine - [address] [address] Outr Resulting Lab, Provider Social History Tobacco [...] Procedure Name Priority Date/Time Associated Diagnosis Comments PSA TOTAL, DIAGNOSTIC Routine 12/29/2019 9:15 EDT CEA Routine 12/29/2019 9:15 EDT documented in this encounter Results * PSA TOTAL, DIAGNOSTIC (12/29/2019 9:15 EDT) PSA 0.8 0.0 - 6.5 ng/mL 12/31/2019 12:55 EDT [facility] Blood VENOUS BLOOD / Unknown 12/29/2019 9:15 EDT 12/30/2019 16:37 EDT Narrative [facility] - 12/31/2019 12:55 EDT NOTE: Serum PSA concentration should not be interpreted as absolute evidence for the presence or absence of malignant disease. Assayed on Siemens ADVIA Centaur XPT using chemiluminescent technology.??Values obtained by using different assay methods cannot be used interchangeably. Provider Outr Resulting Lab CHEMISTRY & BLOOD GAS ORDERABLES Performing Organization Address [facility] Co de Phone Number [facility] [address] [place] [address] * CEA (12/29/2019 9:15 EDT) CEA 2.4 See Note ng/mL 12/31/2019 12:55 EDT [facility] Comment: % Distribution of CEA (ng/mL): ??0.0 - 2.5 in 98.2% of Nonsmokers and 87.3% of Smokers ??2.6 - 5 in 1.8% of Nonsmokers and 8% of Smokers ??5.1 - 10.1 in 4.7% of Smokers NOTE: Serum CEA concentration should not be interpeted as absolute evidence for the presence or absence of malignant disease. ?? Assayed on Siemens ADVIA Centaur XPT using chemiluminescent technology. ??Values obtained by different assay methods cannot be used interchangeably. Blood VENOUS BLOOD / Unknown 12/29/2019 9:15 EDT 12/30/2019 16:37 EDT Provider Outr Resulting Lab CHEMISTRY & BLOOD GAS ORDERABLES Performing Organization Address [facility] de Phone Number [facility] [address] [place] [address] documented in this encounter Visit Diagnoses Not on filedocumented in this encounter Care Teams Donation Specialist Relationship Specialty Start Date End Date Unknown, Provider, PCP - General 06/16/09 documented as of this encounter
--- OUTSIDE RECORDS SUMMARY | 2024-03-12 00:13 | XMS_ITS | Encounter Summary ---
Author Organization [facility] Address [address] [place] [address] Care Team Providers Care Behavior Therapist Name Role Phone Unknown, Provider Primary Care Provider [phone] Encounter Details Date Type Department Care Team (Late st Contact Info) Description 01/18/2005 Results Only [facility] [address] [place] [address] Roger Pickering MD [address] [place] [address] Social History Tobacco Use Types Packs/Day Years Used Date Smoking Tobacco: Never Assessed Sex and Gender Information Value Date Recorded Sex Assigned at Not on file Gender Identity Not on file Sexual Orientation Not on file documented as of this encounter Plan of Treatment Not on file documented as of this encounter Procedures Procedure Name Priority Date/Time Associated Diagnosis Comments SURGICAL PATHOLOGY Routine 01/18/2005 0:00 EDT documented in this encounter Results * SURGICAL PATHOLOGY (01/18/2005 0:00 EDT) Pathology Report: SURGICAL PATHOLOGY REPORT Reports generated via electronic interface contain original data; however they are lacking the format of the original report. Caution should be taken when reading/interpreti ng unformatted reports. Name: ? ALVIN CAT ? Accession #: ? [id number] ? : ? 1945 (Age: 59) ??M ? Collect Date: ? 01/18/2005 ? Location: ? [facility] ? Receive Date: ? 01/18/2005 ? Provider: ROGER PICKERING MD Copy to: ANITHA BOOKER MD ? Final Pathologic Diagnosis: ? Colon, splenic flexure, 55 cm, biopsy: - Hyperplastic polyp. Document reviewed and electronically signed by: ANITHA LUJAN MD Report ??Date: 01/23/2005 13:08 By the signature above, the attending physician certifies that he/she has personally conducted a gross and/or microscopic examination of the described specimens and rendered or confirmed the above diagnosis. Specimen(s) Received: ? Splenic flexure 55 cm bx Clinical History: ? Hx intramucosal Ca of rectum Gross Description: ? Received in Hollande's fixative labelled Podhurst and splenic flexure 55 cm bx are multiple polypoid fragments of tissue which measure approximately 0.25 cc in aggregate. ??This tissue is submitted entirely in one cassette. (Dr. Candice Deleon)/mpl End of Report [facility] 01/18/2005 01/18/2005 15: 32 EDT Roger Pickering MD PATHOLOGY ORDERABLE S [facility] [address] [place] [address] documented in this encounter Visit Diagnoses Not on filedocumented in this encounter Care Teams Behavior Therapist Relationship Specialty Start Date End Date Unknown, Provider, PCP - General 06/16/09 documented as of this encounter
--- OUTSIDE RECORDS SUMMARY | 2024-03-12 00:13 | XMS_ITS | Encounter Summary ---
Author Organization [facility] Address [address] [place] [address] Care Team Providers Care Regulatory Affairs Intern Name Role Phone Unknown, Provider Primary Care Provider [phone] Encounter Details Date Type Department Care Team (Late st Contact Info) Description 06/18/2006 Results Only [facility] [address] [place] [address] Roger Pickering MD [address] [place] [address] Social History Tobacco Use Types Packs/Day Years Used Date Smoking Tobacco: Never Assessed Sex and Gender Information Value Date Recorded Sex Assigned at Not on file Gender Identity Not on file Sexual Orientation Not on file documented as of this encounter Plan of Treatment Not on file documented as of this encounter Procedures Procedure Name Priority Date/Time Associated Diagnosis Comments SURGICAL PATHOLOGY Routine 06/18/2006 0:00 EST documented in this encounter Results * SURGICAL PATHOLOGY (06/18/2006 0:00 EST) Pathology Report: SURGICAL PATHOLOGY REPORT Reports generated via electronic interface contain original data; however they are lacking the format of the original report. Caution should be taken when reading/interpreti ng unformatted reports. Name: ? ALVIN CAT ? Accession #: ? [id number] ? : ? 1945 (Age: 60) ??M ? Collect Date: ? 06/18/2006 ? Location: ? [facility] ? Receive Date: ? 06/19/2006 ? Provider: ROGER PICKERING MD Copy to: ANITHA BOOKER MD ? Final Pathologic Diagnosis: A. ?Vas deferens, right, vasectomy: 1. ?Full cross section of vas deferens. B. ?Vas deferens, left, vasectomy: 1. ?Full cross section of vas deferens. Document reviewed and electronically signed by: GIOVANNI EMERSON MD Report ??Date: 2006 15:31 By the signature above, the attending physician certifies that he/she has personally conducted a gross and/or microscopic examination of the described specimens and rendered or confirmed the above diagnosis. Specimen(s) Received: ? R & L vas Clinical History: ? For sterilization Gross Description: ? Received in normal saline labelled Podhurst and vas deferens right side vasectomy is a tubular V-shaped white portion of vas deferens measuring 0.8 cm in length by an average of 0.3 cm in diameter. ??Sectioning reveals a pinpoint lumen. ??Two phone representative cross sections are submitted as (A). Received in formalin labelled Podhurst and vas deferens left side is a bassett-white tubular structure measuring 0.9 cm in length by 0.2 cm in diameter. [employer] cross sections are submitted as (B). ??(Dr. Valdez)/[facility] End of Report [facility] 06/18/2006 06/19/2006 15: 23 EST Roger Pickering MD PATHOLOGY ORDERABLE S [facility] [address] [place] [address] documented in this encounter Visit Diagnoses Not on filedocumented in this encounter Care Teams Regulatory Affairs Intern Relationship Specialty Start Date End Date Unknown, Provider, PCP - General 06/16/09 documented as of this encounter
--- OUTSIDE RECORDS SUMMARY | 2024-03-12 00:13 | XMS_ITS | Encounter Summary ---
Author Organization [facility] [place] [address] Care Team Providers Care Exhibition Carver Name Role Phone Diana Weaver MD Primary Care Provider [phone] Encounter Details Date Type Department Care Team (Late st Contact Info) Description 11/23/2010 Orders [place] [address] Ed Post MD [facility] [place] [address] Arthroplasty of the knee (Primary Dx) Social History Tobacco Use Types Packs/Day Years Used Date Smoking Tobacco: Never Assessed Sex and Gender Information Value Date Recorded Sex Assigned at Not on file Gender Identity Not on file Sexual Orientation Not on file documented as of this encounter Plan of Treatment Not on file documented as of this encounter Visit Diagnoses Diagnosis Arthroplasty of the knee- Primary Knee joint replacement by other means documented in this encounter Care Teams Exhibition Carver Relationship Specialty Start Date End Date Diana Weaver MD [address] [place] [address] PCP - General 05/22/10 09/11/17 documented as of this encounter
--- OUTSIDE RECORDS SUMMARY | 2024-03-12 00:13 | XMS_ITS | Encounter Summary ---
Author Organization [facility] Address [address] [place] [address] Care Team Providers Care Captain Waiter/Waitress Name Role Phone Unknown, Provider Primary Care Provider [phone] Encounter Details Date Type Department Care Team (Late st Contact Info) Description 11/14/2003 Results Only [facility] [address] [place] [address] Roger Pickering MD [address] [place] [id number] Social History Tobacco Use Types Packs/Day Years Used Date Smoking Tobacco: Never Assessed Sex and Gender Information Value Date Recorded Sex Assigned at Not on file Gender Identity Not on file Sexual Orientation Not on file documented as of this encounter Plan of Treatment Not on file documented as of this encounter Procedures Procedure Name Priority Date/Time Associated Diagnosis Comments SURGICAL PATHOLOGY Routine 11/14/2003 0:00 EDT documented in this encounter Results * SURGICAL PATHOLOGY (11/14/2003 0:00 EDT) Pathology Report: SURGICAL PATHOLOGY REPORT Reports generated via electronic interface contain original data; however they are lacking the format of the original report. Caution should be taken when reading/interpreti ng unformatted reports. Name: ? ALVIN CAT ? Accession #: ? [id number] ? : ? 1945 (Age: 58) ??M ? Collect Date: ? 11/14/2003 ? Location: ? [facility] ? Receive Date: ? 11/15/2003 ? Provider: ROGER PICKERING MD Copy to: ANITHA BOOKER MD ? Final Pathologic Diagnosis: A. ?Rectum, 10.0 cm, biopsy: 1. ?Fragments of benign colonic mucosa. ??See comment. B. ?Rectum, 15.0 cm, biopsy: ? 1. ?? Fragments of tubular adenoma. Comment: ? Deeper levels have been examined on specimen (A). ??(Dr. Patel)/[facility] Document reviewed and electronically signed by: Ganga Rivas MD Report ??Date: 11/18/2003 11:39 By the signature above, the attending physician certifies that he/she has personally conducted a gross and/or microscopic examination of the described specimens and rendered or confirmed the above diagnosis. Specimen(s) Received: A. ?Rectal bx ??10 cm B. ?Bx #2 @ 15 cm Clinical History: ? Rectal polyps, intramucosal adenoCa (see [id number]),#2 is probable site of polyp Gross Description: ? Received in Hollande's fixative labelled [place] and rectal bx 10 cm are two fragments of bassett-white irregular soft tissue which measures 0.2 x 0.1 x 0.1 cm and 0.3 x 0.1 x 0.1 cm. ??The specimen is entirely submitted as (A). Received in Hollande's fixative labelled [place] and bx #2 15 cm are three fragments of irregular bassett-white soft tissue which measures 0.2 x 0.2 x 0.2 cm. The specimen is entirely submitted as (B). ??(Dr. Patel)/[facility] ?? End of Report [facility] 11/14/2003 11/15/2003 15: 22 EDT Roger Pickering MD PATHOLOGY ORDERABLE S Performing Organization Address City/State/[facility] Co de Phone Number [facility] [address] [place] [address] documented in this encounter Visit Diagnoses Not on filedocumented in this encounter Care Teams Captain Waiter/Waitress Relationship Specialty Start Date End Date Unknown, Provider, PCP - General 06/16/09 documented as of this encounter
--- OUTSIDE RECORDS SUMMARY | 2024-03-12 00:13 | XMS_ITS | Encounter Summary ---
Author Organization [facility] Address [address] [place] [address] Care Team Providers Care Potato Chip Cooker Machine Name Role Phone Unknown, Provider Primary Care Provider [phone] Encounter Details Date Type Department Care Team (Late st Contact Info) Description 11/25/2020 Lab Requisition [facility] Pathology & Laboratory Medicine - [address] [address] Outr Resulting Lab, Provider Social History Tobacco [...] Procedure Name Priority Date/Time Associated Diagnosis Comments H. PYLORI ANTIGEN Routine 11/24/2020 13: 50 EDT documented in this encounter Results * H. PYLORI ANTIGEN (11/24/2020 13:50 EDT) H. Pylori Negative Negative 11/28/2020 15:35 EDT [facility] Feces SPECIMEN FROM RECTUM / Unknown 11/24/2020 13:50 EDT 11/26/2020 15:53 EDT Narrative [facility] - 11/28/2020 15:35 EDT Results were obtained with the Slingboxier [employer]ak HpSA Plus [place]. Provider Outr Resulting Lab MICROBIOLOGY - GENERAL ORDERABLES [facility] [address] [place] [address] documented in this encounter Visit Diagnoses Not on filedocumented in this encounter Care Teams Potato Chip Cooker Machine Relationship Specialty Start Date End Date Unknown, Provider, PCP - General 06/16/09 documented as of this encounter
--- OUTSIDE RECORDS SUMMARY | 2024-03-12 00:13 | XMS_ITS | Encounter Summary ---
Author Organization [facility] [place] [address] Care Team Providers Care Skip Tracer Name Role Phone Diana Weaver MD Primary Care Provider [phone] Encounter Details Date Type Department Care Team (Late st Contact Info) Description 11/13/2010 Orders [place] [address] Ed Post MD [facility] [place] [address] Arthroplasty of the knee (Primary Dx) Social [...] means documented in this encounter Care Teams Skip Tracer Relationship Specialty Start Date End Date Diana Weaver MD [address] [place] [address] PCP - General 05/22/10 09/11/17 documented as of this encounter
--- OUTSIDE RECORDS SUMMARY | 2024-03-12 00:13 | XMS_ITS | Encounter Summary ---
Author Organization [facility] [place] [address] Care Team Providers Care Crochet Machine Operator Name Role Phone Diana Weaver MD Primary Care Provider [phone] Encounter Details Date Type Department Care Team (Late st Contact Info) Description 08/22/2010 2:45 PM EST Follow-[place] [address] Ed Post MD [facility] [place] [address] Discharge Disposition: Home Social History Tobacco Use [...] on filedocumented in this encounter Care Teams Crochet Machine Operator Relationship Specialty Start Date End Date Diana Weaver MD [address] [place] [address] PCP - General 05/22/10 09/11/17 documented as of this encounter
--- OUTSIDE RECORDS SUMMARY | 2024-03-12 00:13 | XMS_ITS | Encounter Summary ---
Author Organization [facility] [place] [address] Care Team Providers Care Divemaster Name Role Phone Diana Weaver MD Primary Care Provider [phone] Encounter Details Date Type Department Care Team (Late st Contact Info) Description 04/12/2010 [place] [address] [facility] [place] [address] Social History Tobacco Use Types Packs/Day Years Used Date Smoking Tobacco: Never Assessed Sex and Gender Information Value Date Recorded Sex Assigned at Not on file Gender Identity Not on file Sexual Orientation Not on file documented as of this encounter Plan of Treatment Not on file documented as of this encounter Procedures Procedure Name Priority Date/Time Associated Diagnosis Comments URINALYSIS WITH REFLEX CULTURE Routine 04/12/2010 1:15 PM EDT URINE CULTURE Routine 04/12/2010 1:15 PM EDT DIFFERENTIAL, AUTOMATED Routine 04/12/2010 12:48 PM EDT CREATININE Routine 04/12/2010 12:48 PM EDT ABO/RH TYPING Routine 04/12/2010 12:48 PM EDT PROTHROMBIN TIME Routine 04/12/2010 12:4 8 PM EDT CBC (WITH DIFF) Routine 04/12/2010 12:48 PM EDT ANTIBODY SCREEN Routine 04/12/2010 12:48 PM EDT BUN Routine 04/12/2010 12:48 PM EDT GLUCOSE Routine 04/12/2010 12:48 PM EDT ELECTROLYTES PANEL Routine 04/12/2010 12 :48 PM EDT documented in this encounter Results * URINE CULTURE (04/12/2010 1:15 PM EDT) Urine Culture ? Patient Name: ALVIN CAT ? Ordered By: ED POST ? MR#: [id number] ?LOC: ??4V ? /Sex: ?? 5 (64 years), ? Male ? PROCEDURE: Urine Culture ?SOURCE: T CC ? COLLECTED: 04/12/2010 13:15 ? STARTED: 04/12/2010 14:44 ? FINAL REPORT ? Final Report ? Verified: 07:32 ? No growth (Less than 1,000 cfu/ml). ? ____ [facility] MILLENNIUM Urine specimen obtained by clean catch procedure (specimen) 04/12/2010 1:15 PM EDT 04/12/2010 2:44 PM EDT Ed Post MD MICROBIOLOGY - GENER AL ORDERABLES [facility] * URINALYSIS WITH MICROSCOPIC (04/12/2010 1:15 PM EDT) Glucose, Urine Dipstick Negative Negative mg/dL [facility] MILLENNIUM Protein, Urine Dipstick Negative mg/dL [facility]ILLENNI[facility] Bilirubin, Urine Dipstick Negative Negative mg/dL [facility] MILLENNI[facility] Urobilinogen, Urine Dipstick Normal mg/dL [facility] MILLENNIUM pH, Urn (dipstick) 5.0 5.0 - 8.0 [facility] MILLENNIUM Blood, Urine Dipstick Negative mg/dL [facility] MILLENNI[facility] Ketone, Urine Dipstick Negative mg/dL [facility] MILLENNI[facility] Nitrite, Urine Dipstick Negative [facility] MILLENNIUM Leukocytes, Urine Dipstick Negative mcL [facility] MILLENNI[facility] Appearance, Urine Dipstick Clear Clear CERNER MILLENNIUM Specific [place] Urine Automated 1.008 CERNER MILLENNIUM Color, Urine Dipstick Yellow Yellow [facility] MILLENNIUM RBC, Urine Not Present 0 - 3 CERNER MILLENNIUM WBC, Urine Not Present 0 - 3 [facility] MILLENNIUM Urine specimen (specimen) 04/12/2010 1:15 PM EDT 04/12/2010 1:30 PM EDT Ed Post MD [facility]LES [facility] * REFLEX LAB-ANTIBODY SCREEN (04/12/2010 12:48 PM EDT) Ab Screen Interp Negative [facility] Expires at 2359 on: [id number] [facility] Blood specimen (specimen) 04/12/2010 12:48 PM EDT 04/12/2010 1:30 PM EDT Ed Post MD BLOOD BANK LAB ORDER NANDO [facility] * REFLEX LAB-ABO/RH (04/12/2010 12:48 PM EDT) ABORH Type B Pos [facility] MILLENNI[facility] Blood specimen (specimen) 04/12/2010 12:48 PM EDT 04/12/2010 1:30 PM EDT Ed Post MD BLOOD BANK LAB ORDER NANDO [facility] * ELECTROLYTE PANEL (04/12/2010 12:48 PM EDT) Sodium 139 135 - 145 mmol/L [facility]ILL[facility]NI[facility] Potassium 4.7 3.5 - 5.0 mmol/L [facility] Comment: [...] - 31 mmol/L [facility] MILLENNIUM Anion Gap 10 5 - 15 mmol/L [facility]ILLEN[facility] Blood specimen (specimen) 04/12/2010 12:48 PM EDT 04/12/2010 1:30 PM EDT Ed Post MD CHEMISTRY ORDERABLES [facility] * CREATININE, SERUM (04/12/2010 12:48 PM EDT) Creatinine 1.08 0.80 - 1.50 mg/dL [facility] MILLENNIUM Est [...] disease. References: http://nkdep.nih.gov/resources/NKDEP_Suggestn4Labs_0606_508.pdf http://www.kidney.org/professionals/kls/pdf/faq_gfr.pdf Blood specimen (specimen) 04/12/2010 12:48 PM EDT 04/12/2010 1:30 PM EDT Ed Post MD CHEMISTRY ORDERABLES Performing Organization Address [facility] de Phone Number [facility] * BUN (04/12/2010 12:48 PM EDT) Blood Urea Nitrogen 15 10 - 20 mg/dL [facility] Blood specimen (specimen) 04/12/2010 12:48 PM EDT 04/12/2010 1:30 PM EDT Ed Post MD CHEMISTRY ORDERABLES Performing Organization Address [facility] Co de Phone Number [facility] * GLUCOSE, RANDOM (04/12/2010 12:48 PM EDT) Glucose 96 <=199 mg/dL [facility] Comment:Diabetes: >=200 mg/d L plus symptoms Blood specimen (specimen) 04/12/2010 12:48 PM EDT 04/12/2010 1:30 PM EDT Ed Post MD CHEMISTRY ORDERABLES Performing Organization Address [facility] de Phone Number EDUARDO DIAZ * PROTIME-INR (04/12/2010 12:48 PM EDT) Prothrombin Time 13.3 11.8 - 15.0 sec [facility]ERCAMILA PICKENSIUM Comment: [facility] Transfusion Committee Guidelines: INR less than 2.0, PTT less than OR equal to 43.5 seconds, or Fibrinogen greater than or equal to 100 mg/dl indicate adequate procoagulant activity for hemostasis in patients without underlying bleeding disorders. International Normalization Ratio 1.0 0.9 - 1.1 [facility] MCCORDENNIUM Blood specimen (specimen) 04/12/2010 12:48 PM EDT 04/12/2010 1:30 PM EDT Ed Post MD HEMATOLOGY ORDERABLE S Performing Organization Address [facility] de Phone Number EDUARDO DIAZ * REFLEX LAB-A-DIFF (04/12/2010 12:48 PM EDT) Neutrophil % 69.9 34.0 - 71.0 % [facility] MILL[facility] Neutrophil Absolute 4.92 1.50 - 6.30 x10(3)/mcL [facility] MILLENNIUM Lymph % 21.8 19.0 - 53.0 % [facility] MILLENNIUM Lymphocytes Abs 1.5 1.0 - 3.6 x10(3)/mcL [facility] MILLENNIUM Monocyte % 6.5 4.0 - 13.0 % [facility]ERN[facility] MILLENNIUM Monocyte Abs 0.5 0.2 - 1.0 x10(3)/mcL [facility] MILLENNIUM Eos % 1.3 0.0 - 7.0 % CERNER MILLENNIUM Eosinophils Abs 0.1 0.0 - 0.5 x10(3)/mcL [facility] MILLENNIUM Basophil % 0.4 0.0 - 2.0 % CERNER MILLENNIUM Baso Absolute 0.0 0.0 - 0.2 x10(3)/mcL [facility] MILLENNIUM Immature Gran % 0.10 0.00 - 0.66 % [facility] MILLENNIUM Comment: Immature granulocytes(IG's)percentage and absolute count will include metamyelocytes, myelocytes, and promyelocytes. Blood smears from CBC's yielding IG's will be scanned manually for concordance. If this scan disagrees with the automated IG or if promyelocytes are noted, a manual differential will be performed. Immature Gran Absolute 0.01 0.00 - 0.05 x10(3)/mcL [facility]ILL[facility] Blood specimen (specimen) 04/12/2010 12:48 PM EDT 04/12/2010 1:30 PM EDT Ed Post MD HEMATOLOGY ORDERABLE S CERC[facility]IL[facility] MILLENNIUM * (ABNORMAL) CBC (04/12/2010 12:48 PM EDT) White Blood Cell 7.1 4.0 - 10.0 x10(3)/mc L CERNER MILLENNIUM Red Blood Cell 4.80 4.63 - 6.08 x10(6)/mc L [facility] MILLENNIUM Hemoglobin 15.0 13.7 - 17.5 gm/dL [facility] MILLENNIUM Hematocrit 44.6 40.0 - 51.0 % CERNER MILLENNIUM Mean Cell Volume 92.9(H) 79.0 - 92.0 fL CERNER MILLENNIUM Mean Cell Hemoglobin 31.3 25.6 - 32.2 pg CERNER MILLENNIUM Mean Cell Hemoglobin Concentration 33.6 32.0 - 36.5 gm/dL CERNER MILLENNIUM Platelet 331 145 - 370 x10(3)/mc L CERNER MILLENNIUM RDW Standard Deviation 49.3(H) 35.0 - 46.0 fL CERNER MILLENNIUM RDW coefficient of variation 14.7(H) 10.9 - 14.4 % CERNER MILLENNIUM Mean Platelet Volume 9.9 9.0 - 12.0 fL [facility] MILLENNI[facility] Blood specimen (specimen) 04/12/2010 12:48 PM EDT 04/12/2010 1:30 PM EDT Ed Post MD HEMATOLOGY ORDERABLE S [facility] documented in this encounter Visit Diagnoses Not on filedocumented in this encounter Care Teams Divemaster Relationship Specialty Start Date End Date Diana Weaver MD [address] [place] [address] PCP - General 05/22/10 09/11/17 documented as of this encounter
--- OUTSIDE RECORDS SUMMARY | 2024-03-12 00:13 | XMS_ITS | Encounter Summary ---
[place] [address] Care Team Providers Care Nuclear Waste Management Engineer Name Role Phone Diana Weaver MD Primary Care Provider [phone] Encounter Details Date Type Department Care Team (Late st Contact Info) Description 06/11/2010 9:30 AM EST Procedure visit [place] [address] Social History Tobacco Use Types Packs/Day Years Used Date Smoking Tobacco: Never Assessed Sex and Gender Information Value Date Recorded Sex Assigned at Not on file Gender Identity Not on file Sexual Orientation Not on file documented as of this encounter Plan of Treatment Not on file documented as of this encounter Visit Diagnoses Not on filedocumented in this encounter Care Teams Nuclear Waste Management Engineer Relationship Specialty Start Date End Date Diana Weaver MD [address] [place] [address] PCP - General 05/22/10 09/11/17 documented as of this encounter
--- OUTSIDE RECORDS SUMMARY | 2024-03-12 00:13 | XMS_ITS | Encounter Summary ---
Author Organization [facility] Address [address] [place] [address] Care Team Providers Care Brooch And Bracelet Maker Name Role Phone Unknown, Provider Primary Care Provider [phone] Encounter Details Date Type Department Care Team (Late st Contact Info) Description 11/21/2020 Lab Requisition [facility] Pathology & Laboratory Medicine - [address] [id number] Outr Resulting Lab, Provider Social History Tobacco [...] Associated Diagnosis Comments PSA TOTAL, DIAGNOSTIC Routine 11/21/2020 9:23 EDT documented in this encounter Results * PSA TOTAL, DIAGNOSTIC (11/21/2020 9:23 EDT) PSA 1.1 0.0 - 6.5 ng/mL 11/21/2020 22:37 EDT [facility] Blood VENOUS BLOOD / Unknown 11/21/2020 9:23 EDT 11/21/2020 21:36 EDT Narrative [facility] - 11/21/2020 22:37 EDT NOTE: Serum PSA concentration should not be interpreted as absolute evidence for the presence or absence of malignant disease. Assayed on Siemens ADVIA NaphCareaur XPT using chemiluminescent technology.??Values obtained by using different assay methods cannot be used interchangeably. Provider Outr Resulting Lab CHEMISTRY & BLOOD GAS ORDERABLES [facility] [address] [place] [address] documented in this encounter Visit Diagnoses Not on filedocumented in this encounter Care Teams Brooch And Bracelet Maker Relationship Specialty Start Date End Date Unknown, Provider, PCP - General 06/16/09 documented as of this encounter
--- OUTSIDE RECORDS SUMMARY | 2024-03-12 00:13 | XMS_ITS | Encounter Summary ---
Author Organization [facility] Address [address] [place] [address] Care Team Providers Care Blacking Machine Operator Name Role Phone Unknown, Provider Primary Care Provider [phone] Encounter Details Date Type Department Care Team (Late st Contact Info) Description 12/19/2022 Lab Requisition [facility] Pathology & Laboratory Medicine - [address] [address] Conrado Ron MD [address] [place] [address], [address] [place], [place] [address] Other constipation Social History Tobacco Use Types Packs/Day Years Used Date Smoking Tobacco: Never Assessed Sex and Gender Information Value Date Recorded Sex Assigned at Not on file Gender Identity Not on file Sexual Orientation Not on file documented as of this encounter Plan of Treatment Not on file documented as of this encounter Procedures Procedure Name Priority Date/Time Associated Diagnosis Comments SURGICAL PATHOLOGY Today 12/19/2022 10 :20 EDT Other constipation documented in this encounter Results * SURGICAL PATHOLOGY (12/19/2022 10:20 EDT) Note to Patient The following pathology results have been interpreted by your pathologist and may be available to you before your health provider has had the opportunity to review them. Please allow time for your provider to receive these results and explore management options, if applicable. 12/23/2022 15:14 EDT [facility] Final Diagnosis A. COLON, RANDOM, BIOPSY: - Colonic mucosa with no specific pathologic features. B. COLON, 60 CM, POLYP, BIOPSY: - Tubular adenoma. C. COLON, 35 CM, POLYP, BIOPSY: - Tubular adenoma. 12/23/2022 15:14 [facility] Attestation By the signature below, the attending physician certifies that they have 1) personally conducted a gross and/or microscopic examination of the described specimen(s), and/or personally interpreted the results of laboratory testing of the described specimen(s), and 2) personally rendered or confirmed the above diagnosis. 12/23/2022 15:14 [facility] at 1514 Clinical History H/O of polyps, chronic constipation 12/23/2022 15:14 [facility] Gross Description A. Received in formalin labelled with proper patient identification (initials P, E) and 1. Random Bx's are 4 bassett-brown tissues (0.6 x 0.1 by less than 0.1 cm to 0.3 x 0.2 x 0.1 cm). Entirely submitted in A1. B. Received in formalin labelled with proper patient identification (initials P, E) and 2. Polyp @ 60 cm are 4 bassett tissues (0.3 x 0.2 x 0.2 cm to 0.2 x 0.1 by less than 0.1 cm). Entirely submitted in B1. Please the smaller tissues may not survive processing. C. Received in formalin labelled with proper patient identification (initials P, E) and 3. Polyp @ 35 cm are 2 bassett tissues (0.4 x 0.4 x 0.1 cm and 0.2 x 0.1 by less than 0.1 cm). Entirely submitted in C1. Please note the smaller tissue may not survive processing. Sandra Ellis 12/20/2022 8:03 12/23/2022 15:14 [facility] Performing Lab [facility] 12/23/2022 15:14 [facility] Scanned Images 12/23/2022 15:14 [facility] Tissue ENTIRE COLON / Unknown 12/19/2022 10:20 EDT 12/19/2022 18:08 EDT Tissue specimen (specimen) COLON STRUCTURE / Unknown 12/19/2022 10:20 EDT 12/19/2022 18:08 EDT Tissue specimen (specimen) COLON STRUCTURE / Unknown 12/19/2022 10:20 EDT 12/19/2022 18:08 EDT Conrado oRn MD PATHOLOGY ORDERABLES [facility] [address] [place] [address] documented in this encounter Visit Diagnoses Diagnosis Other constipation documented in this encounter Care Teams Blacking Machine Operator Relationship Specialty Start Date End Date Unknown, Provider, PCP - General 06/16/09 documented as of this encounter
--- OUTSIDE RECORDS SUMMARY | 2024-03-12 00:13 | XMS_ITS | Encounter Summary ---
Author Organization [facility] [place] [address] Care Team Providers Care House Mover Name Role Phone Diana Weaver MD Primary Care Provider [phone] Reason for Visit * Reason Comments Aftercare Of Tjr Bilat tka's Encounter Details Date Type Department Care Team (Late st Contact Info) Description 11/13/2010 11:20 AM EDT [place] [address] Maral Vallecillo PA [facility] [place] [address] S/P shoulder surgery (Primary Dx) Discharge Disposition: Home Social History Tobacco Use Types Packs/Day Years Used Date Smoking Tobacco: Never Assessed Sex and Gender Information Value Date Recorded Sex Assigned at Not on file Gender Identity Not on file Sexual Orientation Not on file documented as of this encounter Progress Notes * Maral Valleclilo - 11/13/2010 1:07 PM EDTAddended by: MARAL VALLECILLO on: 11/13/2010 Modules accepted: Level of Service * Maral Vallecillo - 11/13/2010 1:06 PM EDT Subjective: Patient ID: Alvin Cat is a 65 y.o. male. SURGERY DATE: 05/08/2010 Actual Procedures: BILATERAL PROCEDURE FOR ATTESTATION /LEFT/STAB.ROTATING PLATFORM 5 femur and tibia, 15mm poly, 41 oval 3 peg patella REPAIR OF ANTERIOR MEDIAL COLLATERAL LIG. HPI This is a 65yo male here for left knee check. Patient is 6 months post surgery. Doing well. 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 Has been able to snowshoe. Overall pleased with progress of knees. Patient Active Problem List Diagnoses Code ??? CIS - arthritis ??? CIS - asbestos exposure ??? CIS - Bilateral knee osteoarthritis ??? CIS - Bilateral knee pain ??? CIS - BPH ??? CIS - Entered not Verified ??? CIS - erectile dysfunction ??? CIS - rotator cuff tears ROS No new problems Objective: Physical Exam 5'11 205lbs. Normal gait. Ortho Exam Able to transfer with ease. Bilateral knees with well healed incisions. AROM 0-120, goodpatella mobility. Single leg balance and strength is good. Stable to stressing. Xrays: good alignment and components without complications Neurologic Examnone Assessment and Plan:Bilateral TKA F/U in 6 months with xrays. reviewwed knee care and dental recommendations.Physician coverage todayis Dr. Post * Maral Vallecillo - 11/13/2010 11:52 AM EDT Subjective: Patient ID: Alvin Cat is a 65 y.o. male. SURGERY DATE: 05/08/2010 Proposed Procedures: BILATERAL PROCEDURE FOR ATTESTATION /RIGHT/LEFT/STAB.ROTATING PLATFORM Actual Procedures: BILATERAL PROCEDURE FOR ATTESTATION /LEFT/STAB.ROTATING PLATFORM 5 femur and tibia, 15mm poly, 41 oval 3 peg patella REPAIR OF ANTERIOR MEDIAL COLLATERAL LIG. HPI This is a 65yo male here for bilateral knee check. On feet 8 hours a day or more. Walking down slopes is sore at times. ROS Objective: Physical Exam Ortho Exam Neurologic Exam Assessment and Plan: No problem-specific visit notes found for this encounter. documented in this encounter Plan of Treatment Not on file documented as of this encounter Results * XR knee bilateral1 [...] this encounter Visit Diagnoses Diagnosis S/P shoulder surgery- Primary Other postprocedural status S/P shoulder surgery Other postprocedural status documented in this encounter Care Teams House Mover Relationship Specialty Start Date End Date Diana Weaver MD [address] [place] [address] PCP - General 05/22/10 09/11/17 documented as of this encounter
--- NOTE | 2024-03-12 08:15 | DI.MRI_ITS ---
Exam(s) MR LUMBAR SPINE WO EXAM: MR LUMBAR SPINE WO CLINICAL HISTORY: LOW BACK PAIN,SPONDYLOSIS, M43.06. TECHNIQUE: Multiplanar multisequence MRI of the Lumbar spine was performed. COMPARISON: CR XR LUMBAR SPINE COMPLETE from 06/17/2022 FINDINGS: Bones: The last intervertebral disc space is designated the L5/S1 level for the numbering purpose of this ex amination. The vertebral body heights are well maintained. Alignment: Degenerative levoscoliosis. The marrow signal characteristics are unremarkable. Cord: The conus tip ends at the T12 level. It is of normal size and signal intensity. T12-L1: Mild disc bulging. No focal disc herniation is present. No central spinal canal stenosis.No neural foraminal stenosis. L1-2:Severe loss of disc height. Prominent endplate osteophytes, eccentric toward the left and mild disc bulging no focal disc herniation is present. No central spinal canal stenosis.Mild bilateral ne ural foraminal stenosis. L2-3:Mild loss of disc height and endplate osteophytes eccentric toward the right. Mild facet degene rative changes. Mild ligamentous hypertrophy. No focal disc herniation is present. Moderate right marie ral foraminal stenosis. No central spinal canal stenosis. L3-4: Mild loss of disc height and endplate osteophytes eccentric toward the right. Prominent facet d egenerative changes and ligamentous hypertrophy. No focal disc herniation is present. Severe central spinal canal stenosis.Severe right neural foraminal stenosis. L4-5: Moderate loss of disc height. Small endplate osteophytes. No focal disc herniation is prese nt. Prominent facet degenerative changes. Moderate to severe central spinal canal stenosis.Moderate right and mild left neural foraminal stenosis. L5-S1: Disc height is maintained.No focal disc herniation is present. Facet degenerative changes, gr eater on the right. Small facet cyst projecting into the lateral aspect of the central canal.. No c entral spinal canal stenosis.No neural foraminal stenosis. The visualized SI joints and sacrum are unremarkable. Soft tissues: The paraspinal soft tissues are unremarkable. Renal cysts incidentally noted. IMPRESSION: No evidence of focal disc herniation. Degenerative changes combine to produce severe central canal stenosis and severe right neural foramin al narrowing at L3-4. There is moderate to severe central canal stenosis at L4-5. Degenerative bazzi ges L seen to a lesser extent at the other levels. DATA REPOSITORY:
== END 2024-03-12 00:28 ==
LOC: DI 00:08
PROVIDERS: PCP Family Medicine; Visit Provider Anesthesiology Pain Medicine
DX: M43.06 Spondylolysis, lumbar region (principal)
CPT/HCPCS: 72148

== ENCOUNTER 2024-03-15 08:27 | Outpatient (CLI) | payer MEDICARE, SELFPAY ==
--- NOTE | 2024-03-15 06:00 | DI.RAD_ITS ---
Exam(s) XR PAIN CLINIC LUMBAR SP 2V EXAM: XR PAIN CLINIC LUMBAR SP 2V CLINICAL HISTORY: DX: Lumbar Spondylosis. TECHNIQUE: Fluoroscopy was provided for the referring physician for guidance with performing pain cl inic injection procedure. COMPARISON: No exams were available for comparison FINDINGS: Please see procedure note for details. Fluoro time: 28.9 seconds RADIATION DOSE DELIVERED: Sebastiánr=8.45 mGy
--- NOTE | 2024-03-15 08:44 | PDOC.PAIN_ITS ---
Date of service: 03/15/24 Time of Service: 09:43 Pain Managment Procedure Note Procedure Note Procedure Note: Lumbar Interlaminar Epidural Steroid Injection ? Location: L5-S1 ? Pre-procedure Diagnosis: M54.16- Radiculopathy, LUMBAR region ? Post-procedure Diagnosis:? The same as above ? Sedation:? ? None ? Medication: Depo-Medrol 80 mg, Omnipaque 1 mL ? Estimated blood loss:? less than 2 cc ? Surgeon:? Lon Jean Baptiste MD COMMENT: Patient initially was to come in for bilateral lumbar medial branch blocks. In the interim he had an MRI of his lumbar spine which I ordered. Reviewed this today. And he has severe spinal stenosis at L3-4 and to a lesser degree at L4-5. He has symptoms when he is walking but no bowel or bowel at bladder dysfunction and no significant claudication to his lower extremities jus t to his back. On exam today Kemps maneuver was negative so the plan was to change it to a lumbar epidural steroid injection. ? Procedure Detail:? The procedure and potential risks were explained to the patient and informed written consent was obtained. The patient was escorted to the procedure room and placed in the prone position. Pillows were utilized for proper positioning and comfort. Time out was performed in the procedure room with nursing staff confirming the patient's identity, procedure to be performed, allergies, and any blood thinning or anti-platelet medications.? The patient's neck and upper back was prepped with ChloraPrep and draped in a sterile fashion. Sterile technique was maintained throughout the procedure.? Sterile gloves were used, a face mask was worn, and new single dose vials of all medications were used with the top being swabbed with alcohol and given time to dry prior to withdrawal of medication. Lidocane 1% was used to anesthetize the skin.Using a 25-gauge 1.5 inch needle, 1% lidocaine was instilled into the superficial soft tissue overlying the targeted area to provide local anesthesia. With fluoroscopic guidance, a 17 -gauge Tuohy needle was advanced toward the interlaminar space of L5-S1. The needle was then advance through the ligamentum flavum and into the posterior epidural space using the loss of resistance technique. Correct needle placement was confirmed through review of the AP and contralateral oblique fluoroscopic views. A 19-gauge arrow catheter was not able to thread Following negative aspiration, one cc of Omnipaque 240 contrast was injected which confirmed good flow throughout the epidural space and no evidence of vascular flow or flow into adjacent compartments. Next, following negative aspiration, 1 cc's of normal saline and 80mg of Depo-Medrol was injected. The needle was gently removed. The patient tolerated the procedure well and was transported to the recovery area for observation and discharge instructions. Permanent images saved and recorded. Plan:? Follow up prn. COMMENT: Patient will follow-up as needed. Could repeat or could consider bilateral transforaminal steroid injections at L3-4. Would consider medial branch blocks and RFA if his pain is more axial and mechanical. He will follow- up with his PCP regarding his creatinine of 1.3 and renal cysts incidentally fo und on lumbar MRI.
[2024-03-15 09:17] VITALS: O2SAT 100
[2024-03-15 09:20] VITALS: PULSE 56; RESP 25; O2SAT 99
[2024-03-15 09:23] VITALS: BP 193/105; PULSE 59; PULSE 60; RESP 13; O2SAT 99
[2024-03-15 09:30] VITALS: PULSE 60; RESP 18; O2SAT 99
[2024-03-15 09:31] VITALS: BP 190/92; PULSE 55; PULSE 60; RESP 16; O2SAT 99
[2024-03-15 09:34] VITALS: BP 182/96; PULSE 55
[2024-03-15] MEDS: Omnipaque 240 MG/ML 50 ML BTL IJ (09:40)
[2024-03-15] MEDS: Nerve Block Tray 1 EACH MC (09:40)
[2024-03-15] MEDS: methylPREDNISolone ACETATE 40 MG/ML VIAL IJ (09:40)
== END 2024-03-15 08:28 | disposition home or self-care (01) ==
PROVIDERS: PCP Family Medicine; Visit Provider Anesthesiology Pain Medicine
DX: M54.50 Low back pain, unspecified (principal); M54.16 Radiculopathy, lumbar region
CPT/HCPCS: 00123; 62323; 72100; J0665; J1010; Q9967

== ENCOUNTER → 2024-03-16 10:03 | Outpatient (BNVA) | payer MEDICARE, SELFPAY | PROVIDERS: PCP Family Medicine; Visit Provider Nurse Practitioner Adult Health | DX: G31.84 Mild cognitive impairment of uncertain or unknown etiology (principal) | CPT/HCPCS: 99214 ==

== ENCOUNTER 2024-05-10 18:22 | Outpatient (REF) | payer MEDICARE, SELFPAY ==
[2024-05-10 15:45] LABS: HCT 41.6 % (40.0-50.0); HGB 13.9 g/dL (13.5-17.5); MCH 32.6 pg (27.0-33.0); MCHC 33.4 % (32.0-36.0); MCV 97 fL (80-95); MPV 10.4 fL (8.0-11.0); Platelet Count 286 10^3/uL (130-400); RBC 4.27 10^6/uL (4.36-5.78); RDW-SD 46.1 fL; WBC 5.07 10^3/uL (4.4-10.8)
[2024-05-10 17:09] LABS: ALT 20 U/L (16-63); AST 17 U/L (15-37); Albumin 3.8 g/dL (3.4-5.0); Alkaline Phosphatase 82 U/L (46-116); BUN 25 mg/dL (7-18); Bilirubin, Total 0.49 mg/dL (0.2-1.0); CREATININE 1.5 mg/dL (0.70-1.30); Calcium 9.2 mg/dL (8.5-10.1); Chloride 108 mmol/L (98-107); Estimated GFR 47.36 (mL/min/1.73m2); Glucose 76 mg/dL (74-106); Sodium 144 mmol/L (136-145); TSH (W/Ref FT4) 0.64 uIU/mL (0.36-3.74); Total Protein 6.8 g/dL (6.4-8.2)
--- OUTSIDE RECORDS SUMMARY | 2024-05-10 18:24 | XMS_ITS | Encounter Summary ---
Author Organization Counts [facility] Address [facility] [place] [address] Care Team Providers Care Medical Director Of Hospice Name Role Phone Washington Puckett MD Primary Care Provider Encounter Details Date Type Department Care Team (Latest Contact Info) Description 11/18/2017 8:13 AM EDT - 11/18/2017 11:59 PM EDT Hospital Encounter XRay at [address] [address] Oliver Carter MD [facility] [place] [address] Chronic left shoulder pain Discharge Disposition: Home [...] as of this encounter Plan of Treatment Upcoming Encounters Date Type Department Care Team (Late st Contact Info) Description 05/11/2024 9:00 AM EST Office Visit Psychiatry [place] [address] Simona Harper, PhD documented as of this encounter Procedures Procedure [...] or calcificdeposits adjacent to the lesser tuberosity. Oliver Carter MD IMG DX ORDERABLES documented in this encounter Visit Diagnoses Diagnosis Chronic left shoulder pain Pain in joint, shoulder region documented in this encounter Care Teams Medical Director Of Hospice Relationship Specialty Start Date End Date Washington Puckett MD [address] [place] [address] PCP - General Internal Medicine 09/12/17 01/25/24 documented as of this encounter
--- OUTSIDE RECORDS SUMMARY | 2024-05-10 18:24 | XMS_ITS | Encounter Summary ---
[place] [address] Care Team Providers Care Fertilizer Processing Supervisor Name Role Phone Washington Puckett MD Primary Care Provider [phone] Reason for Referral * Diagnostic Test (Routine) - Closed Specialty Diagnoses / Procedures Referred By Contac t Referred To Contact Radiology Diagnoses Disorder of rotator cuff of both shoulders Procedures MRI Shoulder wo Contrast Left (Generic) Oliver Carter MD [facility] [place] [address] [place] [address] Referral ID Status Reason Start Date Expiration Date V isits Requested Visits Authorized [id number] Closed Specialty Service Requested 03/02/2019 03/01/2020 1 1 Reason for Visit * Diagnostic Test (Routine) - Closed Specialty Diagnoses / Procedures Referred By Controger t Referred To Contact Radiology Diagnoses Disorder of rotator cuff of both shoulders Procedures MRI Shoulder wo Contrast Left (Generic) Oliver Carter MD [facility] [place] [address] [place] [address] Referral ID Status Reason Start Date Expiration Date V isits Requested Visits Authorized [id number] Closed Specialty Service Requested 03/02/2019 03/01/2020 1 1 Encounter Details Date Type Department Care Team (Latest Contact Info) Description 03/30/2019 10:06 AM EDT - 03/30/2019 11:59 PM EDT Hospital Encounter MRI [place] [facility] [place] [address] Oliver Carter MD [facility] [place] [address] Disorder of rotator cuff of both shoulders [...] Office Visit Psychiatry [place] [address] Simona Harper, PhD documented as of this [...] below. ? Electronically signed by: Emperatriz Almanza [facility] ([phone]), at 03/30/2019 12:21 PM Narrative 03/30/2019 12:21 [...] number below. Electronically signed by: Emperatriz Almanza [facility]([phone]), at 03/30/2019 12:21 PM Oliver Carter MD IMG MRI ORDERABLES documented in this encounter Visit Diagnoses Diagnosis Disorder of rotator cuff of both shoulders Disorders of bursae and tendons in shoulder region, unspecified documented in this encounter Care Teams Fertilizer Processing Supervisor Relationship Specialty Start Date End Date Washington Puckett MD [address] [place] [address] PCP - General Internal Medicine 09/12/17 01/25/24 documented as of this encounter
--- OUTSIDE RECORDS SUMMARY | 2024-05-10 18:24 | XMS_ITS | Encounter Summary ---
Author Organization [facility] Address [facility] [place] [address] Care Team Providers Care Electrocardiograph Technician Name Role Phone Washington Puckett MD Primary Care Provider [phone] Reason for Visit * Reason Comments Follow-up left shoulder pain Encounter Details Date Type Department Care Team (Late st Contact Info) Description 10/29/2018 10:20 AM EDT Office Visit [place] [address] Lara Amor APRN [facility] [place] [address] Rotator cuff tendinitis, left Social History Tobacco [...] this encounter Progress Notes * Lara Amor, HOSPITAL CHIEF FINANCIAL OFFICER - 10/29/2018 10:20 AM EDT S: Alvin [...] documented in this encounter Plan of Treatment Upcoming Encounters Date Type Department Care Team (Late st Contact Info) Description 05/11/2024 9:00 AM EST Office Visit Psychiatry and Behavior[place] [address] Simona Harper, PhD documented as of this encounter Visit Diagnoses [...] mg documented in this encounter Care Teams Electrocardiograph Technician Relationship Specialty Start Date End Date Washington Puckett MD [address] [place] [address] PCP - General Internal Medicine 09/12/17 01/25/24 documented as of this encounter
--- OUTSIDE RECORDS SUMMARY | 2024-05-10 18:24 | XMS_ITS | Encounter Summary ---
Author Organization [facility] Address [facility] [place] [address] Care Team Providers Care Quality Control Scientist Name Role Phone Diana Weaver MD Primary Care Provider [phone] Encounter Details Date Type Department Care Team (Late st Contact Info) Description 07/02/2017 11:00 AM EST [place] [address] Washington Deluca MD [facility] [place] [address] Migraine with aura and without status migrainosus, [...] Disease and Stroke Program [place] [address] t: [phone] / f: [phone] Date of Appointment: 07/02/2017 Patient: Alvin Cat [...] and information on migraine and aphasia. Modified Hartford Scale (MRS) 0: No symptoms at all [...] 6: No flowsheet data found. Stroke:PROMIS-10 06/17/2017 Gamxsh85-Nolxkmju Health Score 54.1 Iawzcy69-Fxqgup Health Score 62.5 Health in general Very [...] and recommendations: Doing very well. Going to [place] for over a month now. Improved overall [...] Office Visit Psychiatry [place] [address] Simona Harper, PhD documented as of this encounter Visit Diagnoses Diagnosis Migraine with aura and without status migrainosus, not intractable Migraine with aura, without mention of intractable migraine without mention of status migrainosus documented in this encounter Care Teams Quality Control Scientist Relationship Specialty Start Date End Date Diana Weaver MD [address] [place] [address] PCP - General 05/22/10 09/11/17 documented as of this encounter
--- OUTSIDE RECORDS SUMMARY | 2024-05-10 18:24 | XMS_ITS | Encounter Summary ---
Author Organization [facility] [place] [address] Care Team Providers Care Patch Setter Name Role Phone Washington Puckett MD Primary Care Provider [phone] Reason for Visit * Reason Onset Date Comments Injections 04/21/2018 Encounter Details Date Type Department Care Team (Late st Contact Info) Description 04/21/2018 Telephone [place] [address] Oliver Carter MD [facility] [place] [address] Injections Social History Tobacco Use Types Packs/Day [...] phone # to reach the patient for [phone] ok to leave a message Patient requests [...] Office Visit Psychiatry [place] [address] Simona Harper, PhD documented as of this encounter Visit Diagnoses Not on filedocumented in this encounter Care Teams Patch Setter Relationship Specialty Start Date End Date Washington Puckett MD [address] [place] [address] PCP - General Internal Medicine 09/12/17 01/25/24 documented as of this encounter
--- OUTSIDE RECORDS SUMMARY | 2024-05-10 18:24 | XMS_ITS | Encounter Summary ---
Author [facility] [place] [address] Care Team Providers Care Dye Maker Name Role Phone Diana Weaver MD Primary Care Provider [phone] Reason for Visit * Reason Comments Aftercare Of Tjr Bilat TKR 05/08/2010 Encounter Details Date Type Department Care Team (Late st Contact Info) Description 06/18/2017 10:50 AM EST Office [place] [address] Clinic, Dr Post Team None Status post [...] fracture, subsidence, loosening, or periprosthetic complication. Questionnaire Responses:[facility] Surgical Postop Visit 06/17/2017 PROMIS-10 General Health [...] Office Visit Psychiatry [place] [address] Simona Harper, PhD documented as of this encounter Visit Diagnoses Diagnosis Status post total bilateral knee replacement documented in this encounter Care Teams Dye Maker Relationship Specialty Start Date End Date Diana Weaver MD [address] [place] [address] PCP - General 05/22/10 09/11/17 documented as of this encounter
--- OUTSIDE RECORDS SUMMARY | 2024-05-10 18:24 | XMS_ITS | Encounter Summary ---
[place] [address] Care Team Providers Care Parts Department Supervisor Name Role Phone Washington Puckett MD Primary Care Provider Reason for Referral * Diagnostic Test (Routine) - Closed Specialty Diagnoses / Procedures Referred By Ronald parada Referred To Contact Radiology Diagnoses Disorder of rotator cuff of both shoulders Procedures MRI Shoulder wo Contrast Left (Generic) Oliver Carter MD [facility] [place] [address] [place] [address] Referral ID Status Reason Start Date Expiration Date V isits Requested Visits Authorized [id number] Closed Specialty Service Requested 03/02/2019 03/01/2020 1 1 Reason for Visit * Reason Comments Follow-up left shoulder inj Encounter Details Date Type Department Care Team (Late st Contact Info) Description 03/02/2019 1:30 PM EDT Office [place] [address] Oliver Carter MD [facility] [place] [address] Disorder of rotator cuff of [...] as a good option. Oliver Carter MD Refractive Surgeon Orthopaedic Surgery Dept. of Orthopaedic Surgery [facility] documented in this encounter Plan of Treatment Upcoming Encounters Date Type Department Care Team (Late st Contact Info) Description 05/11/2024 9:00 AM EST Office Visit Psychiatry [place] [address] Simona Harper, PhD documented as of this encounter Results * [...] report, please contact the number below. ? Narrative 03/30/2019 12:21 PM EDT EXAMINATION: MRI [...] unspecified documented in this encounter Care Teams Parts Department Supervisor Relationship Specialty Start Date End Date Washington Puckett MD [address] [place] [address] PCP - General Internal Medicine 09/12/17 01/25/24 documented as of this encounter
--- OUTSIDE RECORDS SUMMARY | 2024-05-10 18:24 | XMS_ITS | Encounter Summary ---
Author Organization [facility] Address [facility] [place] [address] Care Team Providers Care Innersole Fitter Name Role Phone Washington Puckett MD Primary Care Provider [phone] Reason for Visit * Reason Onset Date Comments Injections 01/27/2019 Encounter Details Date Type Department Care Team (Late st Contact Info) Description 01/27/2019 [place] [address] Oliver Carter MD [facility] [place] [address] Injections Social History Tobacco Use Types Packs/Day [...] Best phone # to reach patient for [phone] Best days/times to schedule the appointment: First [...] Office Visit Psychiatry [place] [address] Simona Harper, PhD documented as of this encounter Visit Diagnoses Not on filedocumented in this encounter Care Teams Innersole Fitter Relationship Specialty Start Date End Date Washington Puckett MD [address] [place] [address] PCP - General Internal Medicine 09/12/17 01/25/24 documented as of this encounter
--- OUTSIDE RECORDS SUMMARY | 2024-05-10 18:24 | XMS_ITS | Encounter Summary ---
Author Organization [facility] Address [facility] [place] [address] Care Team Providers Care Cement Crusher Operator Name Role Phone Washington Puckett MD Primary Care Provider [phone] Reason for Visit * Reason Comments Follow-up left shoulder Encounter Details Date Type Department Care Team (Late st Contact Info) Description 03/30/2019 1:30 PM EDT [place] [address] Oliver Carter MD [facility] [place] [address] Nontraumatic complete tear of left rotator cuff [...] of his left shoulder. Briefly he is [id number] gentleman with a known massive, irreparable rotator [...] is leaving the area to return to [place] for 6 months. We did discuss that [...] make that appointment after he returns from [place]. If he is still doing well we can continue to consider nonoperative measures but if he has worsening of his condition we may need to consider another MRI before proceedingwith any attempted surgical repair. Oliver Carter MD Bmw Service Technician Orthopaedic Surgery Dept. of Orthopaedic Surgery [facility] documented in this encounter Plan of Treatment Upcoming Encounters Date Type Department Care Team (Late st Contact Info) Description 05/11/2024 9:00 AM EST Office Visit Psychiatry [place] [address] Simona Harper, PhD documented as [...] mg documented in this encounter Care Teams Cement Crusher Operator Relationship Specialty Start Date End Date Washington Puckett MD [address] [place] [address] PCP - General Internal Medicine 09/12/17 01/25/24 documented as of this encounter
--- OUTSIDE RECORDS SUMMARY | 2024-05-10 18:24 | XMS_ITS | Encounter Summary ---
[place] [address] Care Team Providers Care Air Traffic Controller Name Role Phone Washington Puckett MD Primary Care Provider Encounter Details Date Type Department Care Team (Late st Contact Info) Description 09/05/2017 Telephone [place] [address] Hattie Craig, RN Social History Tobacco Use [...] the day Best number to reach caller: [phone] Reason for call: Patient returned call. He [...] called or made appointments with your PCP, [facility], an ER or urgent care facility, or [...] Office Visit Psychiatry and [place] [address] Simona Harper, PhD documented as of this encounter Visit Diagnoses Not on filedocumented in this encounter Care Teams Air Traffic Controller Relationship Specialty Start Date End Date Washington Puckett MD [address] [place] [address] PCP - General Internal Medicine 09/12/17 01/25/24 documented as of this encounter
--- OUTSIDE RECORDS SUMMARY | 2024-05-10 18:24 | XMS_ITS | Encounter Summary ---
Author Organization [facility] Address [facility] [place] [address] Care Team Providers Care Cloth Printer Name Role Phone Diana Weaver MD Primary Care Provider [phone] Reason for Visit * Reason Comments Follow-up Right Shoulder Pain, Injection Encounter Details Date Type Department Care Team (Late st Contact Info) Description 06/18/2017 9:00 AM EST Office [place] [address] Priti Lilly, SUZANNE [facility] [place] [address] Pain in joint of right shoulder (Primary [...] this encounter Progress Notes * Priti Lilly, BASE CLOTH INSPECTOR - 06/18/2017 9:00 AM EST PATIENT NAME: Alvin Cat AGE: 71 y.o. MR#: [id number] DATE OF VISIT: 06/18/2017 DATE OF INJURY/ONSET: [...] injection in anticipation of a trip to [facility]. His most recent injection was in ~ [...] Office Visit Psychiatry [place] [address] Simona Harper, PhD documented as [...] mg documented in this encounter Care Teams Cloth Printer Relationship Specialty Start Date End Date Diana Weaver MD [address] [place] [address] PCP - General 05/22/10 09/11/17 documented as of this encounter
--- OUTSIDE RECORDS SUMMARY | 2024-05-10 18:24 | XMS_ITS | Encounter Summary ---
[place] [address] Care Team Providers Care Otolaryngology Nurse Name Role Phone Washington Puckett MD Primary Care Provider [phone] Reason for Referral * Physical Therapy (Routine) - Closed Specialty Diagnoses / Procedures Referred By Ronald parada Referred To Contact Physical Therapy Diagnoses Disorder of rotator cuff of both shoulders Oliver Carter MD [facility] [place] [address] [facility] [address] [place] [address] Referral ID Status Reason Start Date Expiration Date V isits Requested Visits Authorized [id number] Closed Evaluate and Treat 11/18/2017 11/18/2018 1 1 Reason for Visit * Reason Comments Follow-up L shoulder pain and right shoulder * Consultation (Routine) - Closed Specialty Diagnoses / Procedures Referred By Ronald parada Referred To Contact Orthopaedics Diagnoses Left Shoulder Pain Washington Puckett MD [address] [place] [address] [facility] [address] [place] [phone] Referral ID Status Reason Start Date Expiration Date V isits Requested Visits Authorized [id number] Closed Consult, Test & Treat 11/10/2017 11/10/2018 1 1 Encounter Details Date Type Department Care Team (Late st Contact Info) Description 11/18/2017 9:00 AM EDT Office Visit Orthopaedics at [facility] [place] [address] Oliver Carter MD [facility] [place] [address] Disorder of rotator cuff of both shoulders [...] on an as-needed basis. Oliver Carter MD Secy Orthopaedic Surgery Dept. of Orthopaedic Surgery [facility] documented in this encounter Plan of Treatment Upcoming Encounters Date Type Department Care Team (Late st Contact Info) Description 05/11/2024 9:00 AM EST Office Visit Psychiatry [place] [address] Simona Harper, PhD Scheduled Referrals Name Type Priority Associated Diagnoses [...] mg documented in this encounter Care Teams Otolaryngology Nurse Relationship Specialty Start Date End Date Washington Puckett MD [address] [place] [address] PCP - General Internal Medicine 09/12/17 01/25/24 documented as of this encounter
--- OUTSIDE RECORDS SUMMARY | 2024-05-10 18:24 | XMS_ITS | Encounter Summary ---
Author Organization [facility] [place] [address] Care Team Providers Care Vessel Slag Worker Name Role Phone Federico Valle MD Primary Care Provider [phone] Reason for Referral * Psychiatric (Routine) - Authorized Specialty Diagnoses / Procedures Referred By Contac t Referred To Contact Psychiatry Diagnoses Other symptoms and signs involving cognitive functions and awareness PT WITH MCI VS. EARLY NEURODEGENERATIVE PROCESS. Procedures PRO NEUROBEHAVIORAL STATUS EXAM PHYS/QHP 1ST HR PRO NEUROPSYCHOLOGICAL TEST EVAL PHYS/QHP 1ST HOUR PRO NEUROPSYCHOLOGICAL TEST EVAL PHYS/QHP EA ADDL HR TC PSYCL/NRPSYCL PAINTER PLATE 2+ TEST 1ST 30 MIN TC PSYCL/NRPSYCL PAINTER PLATE 2+ TEST EA ADDL 30 MIN Kim Can APRN [facility] [address] [place] [address] [place] [address] Viet Arteaga, PhD [facility] [place] [address] Referral ID Status Reason Start Date Expiration Date Visits Requested Visits Authorized [id number] Authorized Test Only PCP Updated and/or Approved 01/14/2024 01/13/2025 6 6 Encounter Details Date Type Department Care Team (Latest Contact Info) Description 01/27/2024 Transcribe Orders eDH Incoming Referrals [phone] Federico Valle MD [address] [place] [address] Other symptoms and signs involving cognitive functions [...] Office Visit Psychiatry [place] [address] Simona Harper, PhD Scheduled Referrals Name Type Priority Associated Diagnoses Order Schedule Referral to Neuropsychology Outpatient Referral Routine Other symptoms and signs involving cognitive functions and awareness Ordered: 01/27/2024 documented as of this encounter Visit Diagnoses Diagnosis Other symptoms and signs involving cognitive functions and awareness documented in this encounter Care Teams Vessel Slag Worker Relationship Specialty Start Date End Date Federico aVlle MD [address] [place] [address] PCP - General Family Medicine 01/26/24 documented as of this encounter
--- OUTSIDE RECORDS SUMMARY | 2024-05-10 18:24 | XMS_ITS | Encounter Summary ---
Author Organization [facility] [place] [address] Care Team Providers Care Car Usher Name Role Phone Diana Weaver MD Primary Care Provider [phone] Encounter Details Date Type Department Care Team (Late st Contact Info) Description 06/06/2017 [place] [address] Hattie Craig RN Social History Tobacco Use [...] re: PPI or other protective medication for detention NSAID use. Medication list updated Person providing [...] 1:00 PM Washington Deluca MD Neurology at [place] [phone] Diagnostic (lab/radiology) Are coordination of discharge services [...] Office Visit Psychiatry [place] [address] Simona Harper, PhD documented as of this encounter Visit Diagnoses Not on filedocumented in this encounter Care Teams Car Usher Relationship Specialty Start Date End Date Diana Weaver MD [address] [place] [address] PCP - General 05/22/10 09/11/17 documented as of this encounter
--- OUTSIDE RECORDS SUMMARY | 2024-05-10 18:24 | XMS_ITS | Encounter Summary ---
Author Organization [facility] Address [facility] [place] [address] Care Team Providers Care Servicenow Administrator Name Role Phone Diana Weaver MD Primary Care Provider [phone] Encounter Details Date Type Department Care Team (Latest Contact Info) Description 06/18/2017 9:42 AM EST - 06/18/2017 11:59 PM EST Hospital Encounter XRay at [address] [place] [address] Ed Post MD [facility] [place] [address] Presence of artificial knee joint, bilateral Discharge [...] Office Visit Psychiatry [place] [address] Simona Harper, PhD documented as of this [...] bilateral documented in this encounter Care Teams Servicenow Administrator Relationship Specialty Start Date End Date Diana Weaver MD [address] [place] [address] PCP - General 05/22/10 09/11/17 documented as of this encounter
--- OUTSIDE RECORDS SUMMARY | 2024-05-10 18:24 | XMS_ITS | Encounter Summary ---
Author Organization [facility] [place] [address] Care Team Providers Care Forming Roll Operator Heavy Duty Name Role Phone Washington Puckett MD Primary Care Provider [phone] Reason for Visit * Reason Onset Date Comments Questions 01/27/2019 Other 01/27/2019 Encounter Details Date Type Department Care Team (Late st Contact Info) Description 01/27/2019 Telephone [place] [address] Oliver Carter MD [facility] [place] [address] Questions; Other Social History Tobacco Use Types [...] the MRI of his left shoulder at [facility]. He is havingtrouble sleeping and would like [...] Office Visit Psychiatry [place] [address] Simona Harper, PhD documented as of this encounter Visit Diagnoses Not on filedocumented in this encounter Care Teams Forming Roll Operator Heavy Duty Relationship Specialty Start Date End Date Washington Puckett MD [address] [place] [address] PCP - General Internal Medicine 09/12/17 01/25/24 documented as of this encounter
--- OUTSIDE RECORDS SUMMARY | 2024-05-10 18:24 | XMS_ITS | Encounter Summary ---
Author Organization [facility] [address] [facility] [address] Care Team Providers Care Rn Lpn Cna Name Role Phone Washington Puckett MD Primary Care Provider [phone] Encounter Details Date Type Department Care Team (Late st Contact Info) Description 11/18/2017 9:15 AM EDT Office Visit [place] [address] Patel Arevaol, PT [facility] PHYSICAL MEDICINE & [place] [address] Disorder of rotator cuff of both shoulders [...] EVAL & RX _X_ORTHOPEDIC SPORTS MEDICINE [facility] THERAPIST: Patel Arevalo PT DX: Rotator cuff [...] Endurance / ROM PT -- 15 minutes ([id number]). Patient instructed in stretch #2 #3 Patient [...] and discuss this further with your PT. ([phone]) REMEMBER that most new exercises may seem [...] Clinical decision making CPT CODE LOW COMPLEXITY [id number] using standardized patient assessment instrument and measurable [...] needed. PT ST GOALS : 3-6 wks [place] with home exercise program. Improve flexibility, stabilization [...] Office Visit Psychiatry and Behavioral [place] [address] Simona Harper, PhD documented as of this encounter Visit Diagnoses Diagnosis Disorder of rotator cuff of both shoulders Disorders of bursae and tendons in shoulder region, unspecified documented in this encounter Care Teams Rn Lpn Cna Relationship Specialty Start Date End Date Washington Puckett MD [address] [place] [address] PCP - General Internal Medicine 09/12/17 01/25/24 documented as of this encounter
--- OUTSIDE RECORDS SUMMARY | 2024-05-10 18:24 | XMS_ITS | Encounter Summary ---
Author Organization [facility] Address [facility] [place] [address] Care Team Providers Care Pin Inserter Regulator Name Role Phone Washington Puckett MD Primary Care Provider [phone] Reason for Visit * Reason Onset Date Comments Injections 10/13/2018 Encounter Details Date Type Department Care Team (Late st Contact Info) Description 10/13/2018 Telephone [place] [address] Oliver Carter MD [facility] [place] [address] Injections Social History Tobacco Use Types Packs/Day [...] to schedule an appointment either with Dr. Carter or with April Amor for left shoulder injection * Telephone Encounter - Hattie Hope - 10/13/2018 10:07 AM EDT Best phone # to reach the patient for [phone] Patient requests appointment for injection of the [...] Office Visit Psychiatry and Behavioral [place] [address] Simona Harper, PhD documented as of this encounter Visit Diagnoses Not on filedocumented in this encounter Care Teams Pin Inserter Regulator Relationship Specialty Start Date End Date Washington Puckett MD [address] [place] [address] PCP - General Internal Medicine 09/12/17 01/25/24 documented as of this encounter
--- OUTSIDE RECORDS SUMMARY | 2024-05-10 18:24 | XMS_ITS | Encounter Summary ---
Author Organization [facility] Address [facility] [place] [address] Care Team Providers Care Multimedia Coordinator Name Role Phone Washington Puckett MD Primary Care Provider [phone] Reason for Visit * Reason Comments Bilateral Shoulder Pain bi SHOULDER PAIN - increased pain Encounter Details Date Type Department Care Team (Late st Contact Info) Description 02/08/2020 8:00 AM EDT Office Visit [place] [address] Oliver Carter MD [facility] [place] [address] Disorder of rotator cuff of both shoulders [...] continues to appear repairable. Oliver Carter MD Building Materials Sales Attendant Orthopaedic Surgery Dept. of Orthopaedic Surgery [facility] documented in this encounter Plan of Treatment Upcoming Encounters Date Type Department Care Team (Late st Contact Info) Description 05/11/2024 9:00 AM EST Office Visit Psychiatry and Behavioral [place] [address] Simona Harper, PhD documented as [...] 40 mg, Intra-articular, ONCE, 1 dose, On 02/08/20 at 0845, Routine Given 02/08/2020 8:29 AM EDT 40 mg documented in this encounter Care Teams Multimedia Coordinator Relationship Specialty Start Date End Date Washington Puckett MD [address] [place] [address] PCP - General Internal Medicine 09/12/17 01/25/24 documented as of this encounter
--- OUTSIDE RECORDS SUMMARY | 2024-05-10 18:24 | XMS_ITS | Encounter Summary ---
Author Organization [facility] Address [facility] [address] Care Team Providers Care Dog Breeder Name Role Phone Washington Puckett MD Primary Care Provider [phone] Reason for Visit * Reason Comments Follow-up R shoulder injection Encounter Details Date Type Department Care Team (Late st Contact Info) Description 04/28/2018 2:30 PM EDT Office [place] [address] Oliver Carter MD [facility] [place] [address] Disorder of rotator cuff of both shoulders [...] will be as needed. Oliver Carter MD Rib Trim Separator Orthopaedic Surgery Dept. of Orthopaedic Surgery [facility] documented in this encounter Plan of Treatment Upcoming Encounters Date Type Department Care Team (Late st Contact Info) Description 05/11/2024 9:00 AM EST Office Visit Psychiatry [place] [address] Simona Harper, PhD documented as of this encounter Visit Diagnoses Diagnosis Disorder of rotator cuff of both shoulders Disorders of bursae and tendons in shoulder region, unspecified documented in this encounter Care Teams Dog Breeder Relationship Specialty Start Date End Date Washington Puckett MD [address] [place] [address] PCP - General Internal Medicine 09/12/17 01/25/24 documented as of this encounter
--- OUTSIDE RECORDS SUMMARY | 2024-05-10 18:24 | XMS_ITS | Encounter Summary ---
Author Organization [facility] [place] [address] Care Team Providers Care Maturity Checker Name Role Phone Washington Puckett MD Primary Care Provider [phone] Encounter Details Date Type Department Care Team (Late st Contact Info) Description 03/30/2019 11:20 AM EDT Office Visit [facility] at [facility] [place] [address] Andrea Caceres APRN [facility] [place] [address] Chronic bilateral low back pain without sciatica [...] 1-3 alcoholic drinks per day, lives in [place] with his who comes in the exam room today and 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 He remains quite physicallyactive with this [...] for mechanical diagnosis and therapy with a evaluation specialist physical therapist or to [place] certified physical therapist close to the patient's home would be a good option. documented in this encounter Plan of Treatment Upcoming Encounters Date Type Department Care Team (Late st Contact Info) Description 05/11/2024 9:00 AM EST Office Visit Psychiatry [place] [address] Simona Harper, PhD documented as of this encounter Visit Diagnoses Diagnosis Chronic bilateral low back pain without sciatica documented in this encounter Care Teams Maturity Checker Relationship Specialty Start Date End Date Washington Puckett MD [address] [place] [address] PCP - General Internal Medicine 09/12/17 01/25/24 documented as of this encounter
--- OUTSIDE RECORDS SUMMARY | 2024-05-10 18:24 | XMS_ITS | Clinical Summary ---
Author Organization [facility] Address [facility] [place] [address] Care Team Providers Care Sas Sql Developer Name Role Phone Federico Valle MD Primary Care Provider [phone] Allergies Active Allergy Reactions Criticality Noted Date [...] (1/2 tablet). Active traMADol (ULTRAM) 50 mg TabletIndications:LA N nightly 25 mg nightly. Indications: PRN [...] 06/18/2017 CIS - rotator cuff tears 06/30/2004 Immunizations Name Administration Dates Next Due Influenza [...] 02/08/2020 8:11 AM EDT Plan of Treatment Upcoming Encounters Date Type Department Care Team (Late st Contact Info) Description 05/11/2024 9:00 AM EST Office Visit Psychiatry [place] [address] Simona Harper, PhD Health Maintenance Due Date Last Done Comments Pneumoccocal Vaccine: 65+ (1 of 2 - PCV) 1951 Hepatitis C Screening 1963 Tetanus/Diphtheria/Pertussis Vaccines (1 - Tdap) 1964 Zoster vaccine (1 of 2) 1995 Covid-19 Vaccine (1 - season) 2024 Influenza (Flu) vaccine (1 o f 1 - Influenza standard series) 02/29/2024 02/28/2010 Lipid Screening Discontinued 06/02/2017, 12/26/2011 Medical Devices Implanted Type Area Crm System Administrator Device Identifier Shelf Expiration Date Model / Serial / Lot Mesh,Centrifx ,Med,9x14.5cm ([id number]) - [id number] Implanted:Qty : 1 on 08/16/2013 by Renzo Velasquez MD at [facility] IMPLANTS Right: Inguinal 08/28/2015 [id number] / / [id number] Mesh,Centrifx ,Med,9x14.5cm ([id number]) - [id number] Implanted:Qty : 1 on 08/16/2013 by Renzo Velasquez MD at [facility] IMPLANTS Left: Pelvis 04/29/2015 [id number] / / [id number] Procedures Procedure Name Priority Date/Time Associated Diagnosis Comments HDL/CHOL PROFILE Routine 06/02/2017 2:35 PM EST from Last 3 Months or Most Recently Relevant to Health Maintenance Results * HDL/Cholesterol Profile (06/02/2017 2:35 PM EST) Cholesterol, Total 170 <=239 mg/dL [facility] HDL Cholesterol 69 >=40 mg/dL [facility] Cholesterol/HDL Ratio 2.5 ratio [facility] Chol/HDL Interpretation See Note [facility] Comment: Lipid management should be guided by a patient? s ASCVD risk, goals and preferences. ACC/AHA Guidelines recommend high intensity statin if clinical ASCVD or LDL greater than or equal to 190 mg/dL. http://[email or web address]/MFJ-WTH-Xatvirppu Measure LDL if Total Cholesterol minus HDL Cholesterol is greater than 220 mg/dL. Adults aged 40-75 with LDL 70-189 mg/dL should have their 10 year ASCVD risk estimated with the ACC/AHA ASCVD risk senior construction estimator http://tools.acc.org/UETOV-Wfex-Wwnqyoaxe/ Statin should be discussed if risk greater [...] Lab Washington Deluca MD CHEMISTRY ORDERABL ES [facility] [place] [address] from Last 3 Months or Most Recently Relevant to Health Maintenance Advance Directives Documents on File Type Date Recorded Patient Business Administration Professor Expl anation Advance Directives and Aviva nieto [...] is based on Patients wishes. Care Teams Sas Sql Developer Relationship Specialty Start Date End Date Federico Valle MD [address] [place] [address] PCP - General Family Medicine 01/26/24
--- OUTSIDE RECORDS SUMMARY | 2024-05-10 18:25 | XMS_ITS | Encounter Summary ---
Author Organization [facility] [place] [address] Care Team Providers Care Conservation Of Resources Commissioner Name Role Phone Diana Weaver MD Primary Care Provider [phone] Reason for Visit * Reason Comments Right Shoulder Pain Encounter Details Date Type Department Care Team (Late st Contact Info) Description 03/11/2017 1:30 PM EDT Office [place] [address] Oliver Carter MD [facility] [place] [address] Acute pain of both shoulders Social History [...] visit to be initiated. Oliver Carter MD Core Composer Machine Tender Orthopaedic Surgery Dept. of Orthopaedic Surgery [facility] documented in this encounter Plan of Treatment Upcoming Encounters Date Type Department Care Team (Late st Contact Info) Description 05/11/2024 9:00 AM EST Office Visit Psychiatry [place] [address] Simona Harper, PhD documented as of this encounter Visit Diagnoses Diagnosis Acute pain of both shoulders documented in this encounter Care Teams Conservation Of Resources Commissioner Relationship Specialty Start Date End Date Diana Weaver MD [address] [place] [address] PCP - General 05/22/10 09/11/17 documented as of this encounter
--- OUTSIDE RECORDS SUMMARY | 2024-05-10 18:25 | XMS_ITS | Encounter Summary ---
Author Organization [facility] [place] [address] Care Team Providers Care Optics Technical Officer Name Role Phone Diana Weaver MD Primary Care Provider [phone] Encounter Details Date Type Department Care Team (Late st Contact Info) Description 01/06/2016 [place] [address] Nicole Zaragoza MD [facility] [place] [address] Social History Tobacco Use Types Packs/Day Years [...] 6:[address] Landers Calling from [place]. 70 yo, male patient with PMH of [...] Office Visit Psychiatry [place] [address] Simona Harper, PhD documented as of this encounter Visit Diagnoses Not on filedocumented in this encounter Care Teams Optics Technical Officer Relationship Specialty Start Date End Date Diana eWaver MD [address] [place] [address] PCP - General 05/22/10 09/11/17 documented as of this encounter
--- OUTSIDE RECORDS SUMMARY | 2024-05-10 18:25 | XMS_ITS | Encounter Summary ---
Author Organization [facility] Address [facility] [place] [address] Care Team Providers Care Practice Support Specialist Name Role Phone Diana Weaver MD Primary Care Provider [phone] Reason for Visit * Reason Onset Date Comments Appointment 09/04/2016 Encounter Details Date Type Department Care Team (Late st Contact Info) Description 09/04/2016 Telephone [place] [phone] Oliver Carter MD [facility] [place] [address] Appointment Social History Tobacco Use Types Packs/Day [...] phone # to reach the patient for [phone] Patient requests appointment for injection of the [...] Office Visit Psychiatry [place] [address] Simona Harper, PhD documented as of this encounter Visit Diagnoses Not on filedocumented in this encounter Care Teams Practice Support Specialist Relationship Specialty Start Date End Date Diana Weaver MD [address] [place] [address] PCP - General 05/22/10 09/11/17 documented as of this encounter
--- OUTSIDE RECORDS SUMMARY | 2024-05-10 18:25 | XMS_ITS | Encounter Summary ---
Author Organization [facility] Address [facility] [place] [address] Care Team Providers Care Recruitment Intern Name Role Phone Diana Weaver MD Primary Care Provider Reason for Visit * Reason Comments Right Shoulder Pain Encounter Details Date Type Department Care Team (Late st Contact Info) Description 10/22/2016 2:30 PM EDT Office [place] [address] Oliver Carter MD [facility] DR [place] [address] Disorder of rotator cuff of both shoulders [...] deltoid retraining program. He then left for [place] and states he has actually done quite [...] Office Visit Psychiatry [place] [address] Simona Harper, PhD documented as [...] 40 mg, Intra-articular, ONCE, 1 dose, On 10/22/16 at 1545, Routine Given 10/22/2016 3:15 PM EDT 40 mg documented in this encounter Care Teams Recruitment Intern Relationship Specialty Start Date End Date Diana Weaver MD [address] [place] [address] PCP - General 05/22/10 09/11/17 documented as of this encounter
--- OUTSIDE RECORDS SUMMARY | 2024-05-10 18:25 | XMS_ITS | Encounter Summary ---
Author Organization [facility] Address [facility] [place] [address] Care Team Providers Care Sap Bi Developer Name Role Phone Diana Weaver MD Primary Care Provider [phone] Reason for Visit * Reason Onset Date Comments Injections 05/10/2016 Encounter Details Date Type Department Care Team (Late st Contact Info) Description 05/10/2016 [place] [phone] Oliver Carter MD [facility] [place] [address] Injections Social History Tobacco Use Types Packs/Day [...] phone # to reach the patient for [phone] Patient requests appointment for injection of the [...] Upcoming Encounters Date Type Department Care Team (Mykel gallo Contact Info) Description 05/11/2024 9:00 AM EST Office Visit Psychiatry [place] [address] Simona Harper, PhD documented as of this encounter Visit Diagnoses Not on filedocumented in this encounter Care Teams Sap Bi Developer Relationship Specialty Start Date End Date Diana Weaver MD [address] [place] [address] PCP - General 05/22/10 09/11/17 documented as of this encounter
--- OUTSIDE RECORDS SUMMARY | 2024-05-10 18:25 | XMS_ITS | Encounter Summary ---
Author Organization [facility] Address [facility] [place] [address] Care Team Providers Care Card Boxer Name Role Phone Diana Weaver MD Primary Care Provider [phone] Encounter Details Date Type Department Care Team (Late st Contact Info) Description 02/13/2016 Orders [place] [address] Zuleika Mathur Social History Tobacco Use Types [...] Office Visit Psychiatry [place] [address] Simona Harper, PhD documented as of this encounter Visit Diagnoses Not on filedocumented in this encounter Care Teams Card Boxer Relationship Specialty Start Date End Date Diana Weaver MD [address] [place] [address] PCP - General 05/22/10 09/11/17 documented as of this encounter
--- OUTSIDE RECORDS SUMMARY | 2024-05-10 18:25 | XMS_ITS | Encounter Summary ---
[place] [address] Care Team Providers Care Solvent Mixer Name Role Phone Diana Weaver MD Primary Care Provider [phone] Reason for Visit * Reason Onset Date Comments Other 02/23/2016 requesting vipin parada office notes Encounter Details Date Type Department Care Team (Late st Contact Info) Description 02/23/2016 [place] [address] Washington Deluca MD [facility] [place] [address] Other (requesting recent office notes) Social History [...] 02/23/2016 3:11 PM EDT Mackenzie called from [facility], requesting the office notes from patient's visit with . Unfortunately, the office notes encounter is not closed. Can Dr. Deluca please completethis note, so this can be faxed to them? Fax #: [phone] attn: Dr.Sharon Weaver documented in this encounter Plan of Treatment Upcoming Encounters Date Type Department Care Team (Late st Contact Info) Description 05/11/2024 9:00 AM EST Office Visit Psychiatry [place] [address] Simona Harper, PhD documented as of this encounter Visit Diagnoses Not on filedocumented in this encounter Care Teams Solvent Mixer Relationship Specialty Start Date End Date Diana Weaver MD [address] [place] [address] PCP - General 05/22/10 09/11/17 documented as of this encounter
--- OUTSIDE RECORDS SUMMARY | 2024-05-10 18:25 | XMS_ITS | Encounter Summary ---
Author Organization [facility] Address [facility] [place] [address] Care Team Providers Care Chemical Laboratory Assistant Name Role Phone Diana Weaver MD Primary Care Provider [phone] Encounter Details Date Type Department Care Team (Latest Contact Info) Description 02/13/2016 9:00 AM EDT - 02/13/2016 11:59 PM EDT Hospital Encounter XRay at [address] [place] [address] Oliver Carter MD [facility] [place] [address] Bilateral shoulder pain, unspecified chronicity Discharge Disposition: [...] Office Visit Psychiatry [place] [address] Simona Harper, PhD documented as of this [...] from prior study of 03/30/2013. Procedure Note [place], Patel K, MD - 02/13/2016 EXAMINATION: XR BILATERAL SHOULDERS [...] chronicity documented in this encounter Care Teams Chemical Laboratory Assistant Relationship Specialty Start Date End Date Diana Weaver MD [address] [place] [address] PCP - General 05/22/10 09/11/17 documented as of this encounter
--- OUTSIDE RECORDS SUMMARY | 2024-05-10 18:25 | XMS_ITS | Encounter Summary ---
Author Organization [facility] Address [facility] [place] [address] Care Team Providers Care Bandoleer Packer Name Role Phone Diana Weaver MD Primary Care Provider [phone] Encounter Details Date Type Department Care Team (Latest Contact Info) Description 01/06/2016 - 01/06/2016 11:59 PM EDT Hospital Encounter Radiology Library [place] [address] Washington Deluca MD [facility] [place] [address] Pain Discharge Disposition: Home Social History Tobacco [...] Office Visit Psychiatry [place] [address] Simona Harper, PhD documented as of this encounter Procedures Procedure Name Priority Date/Time Associated Diagnosis Comments FILM LIBRARY STORAGE ONLY CT HEAD Routine 01/06/2016 12:00 AM EDT Pain documented in this encounter Results * Film Library- Storage Only CT Head (01/06/2016 12:00 AM EDT) Narrative [facility] - 01/10/2016 9:09 AM EDT This exam is for storage only and is auto-finalizing. Washington Deluca MD IMG FILM LIBRARY O RDERABLES [place], [place] documented in this encounter Visit Diagnoses Diagnosis Pain Generalized pain documented in this encounter Care Teams Bandoleer Packer Relationship Specialty Start Date End Date Diana Weaver MD [address] [place] [address] PCP - General 05/22/10 09/11/17 documented as of this encounter
--- OUTSIDE RECORDS SUMMARY | 2024-05-10 18:25 | XMS_ITS | Encounter Summary ---
Author Organization [facility] [place] [address] Care Team Providers Care Harness Puller Name Role Phone Diana Weaver MD Primary Care Provider [phone] Encounter Details Date Type Department Care Team (Latest Contact Info) Description 06/02/2017 12:30 PM EST - 06/02/2017 1:24 PM [facility] Hospital Encounter [place] [address] Washington Deluca MD [facility] [place] [address] Discharge Disposition: Other Short Term [facility] [...] Office Visit Psychiatry [place] [address] Simona Harper, PhD documented as of this encounter Visit Diagnoses Not on filedocumented in this encounter Care Teams Harness Puller Relationship Specialty Start Date End Date Diana Weaver MD [address] [place] [address] PCP - General 05/22/10 09/11/17 documented as of this encounter
--- OUTSIDE RECORDS SUMMARY | 2024-05-10 18:25 | XMS_ITS | Encounter Summary ---
Author Organization [facility] Address [facility] [place] [address] Care Team Providers Care Buckle Sewer Machine Name Role Phone Diana Weaver MD Primary Care Provider [phone] Reason for Visit * Physical Therapy (Routine) - Closed Specialty Diagnoses / Procedures Referred By Ronald parada Referred To Contact Physical Therapy Diagnoses Disorder of rotator cuff of both shoulders Oliver Carter MD [facility] [place] [address] [facility] [address] [address] [place] [address] Referral ID Status Reason Start Date Expiration Date V isits Requested Visits Authorized [id number] Closed Evaluate and Treat 04/16/2016 04/16/2017 1 1 Encounter Details Date Type Department Care Team (Late st Contact Info) Description 04/16/2016 1:00 PM EDT Office Visit Physical Therapy at [facility] [address] [place] [address] Marvin Wiseman, PT [facility] PHYSICAL MEDICINE & [place] [address] Acute pain of both shoulders Social History [...] of AROM in order maximize function Therapy Half-Way Goals (8 weeks) Patient to... 1. improve [...] Office Visit Psychiatry [place] [address] Simona Harper, PhD Scheduled Referrals Name Type Priority Associated Diagnoses Orde r Schedule Referral to Physical Therapy Outpatient Referral Routine Disorder of rotator cuff of both shoulders Ordered: 04/16/2016 documented as of this encounter Visit Diagnoses Diagnosis Acute pain of both shoulders documented in this encounter Care Teams Buckle Sewer Machine Relationship Specialty Start Date End Date Diana Weaver MD [address] [place] [address] PCP - General 05/22/10 09/11/17 documented as of this encounter
--- OUTSIDE RECORDS SUMMARY | 2024-05-10 18:25 | XMS_ITS | Encounter Summary ---
Author Organization [facility] Address [facility] [place] [address] Care Team Providers Care Gerontology Aide Name Role Phone Diana Weaver MD Primary Care Provider [phone] Encounter Details Date Type Department Care Team (Late st Contact Info) Description 12/26/2015 11:00 AM EDT Office Visit Physical Therapy at [facility] [address] [place] [address] Marvin Wiseman, PT [facility] PHYSICAL MEDICINE & [place] [address] Acute pain of both shoulders Social History [...] Progress Notes * Marvin Wiseman, PT - 12/26/2015 11:00 AM EDT PHYSICAL [...] of AROM in order maximize function Therapy Assisted Goals (8 weeks) Patient to... 1. improve [...] Office Visit Psychiatry [place] [address] Simona Harper, PhD documented as of this encounter Visit Diagnoses Diagnosis Acute pain of both shoulders documented in this encounter Care Teams Gerontology Aide Relationship Specialty Start Date End Date Diana Weaver MD [address] [place] [address] PCP - General 05/22/10 09/11/17 documented as of this encounter
--- OUTSIDE RECORDS SUMMARY | 2024-05-10 18:25 | XMS_ITS | Encounter Summary ---
Author Organization [facility] [place] [address] Care Team Providers Care Head Start Director Name Role Phone Diana Weaver MD Primary Care Provider [phone] Encounter Details Date Type Department Care Team (Latest Contact Info) Description 06/01/2017 - 06/01/2017 11:59 PM EST Hospital Encounter Radiology Library [place] [facility] [address] Discharge Disposition: Home Social History Tobacco Use [...] Office Visit Psychiatry [place] [address] Simona Harper, PhD documented as of this encounter Procedures Procedure Name Priority Date/Time Associated Diagnosis Comments FILM LIBRARY STORAGE ONLY CT HEAD Routine 06/01/2017 12:00 AM EST Pain documented in this encounter Results * Film Library- Storage Only CT Head (06/01/2017 12:00 AM EST) Narrative [facility] - 06/02/2017 7:25 PM EST This exam is for storage only and is auto-finalizing. Dinh Rapp MD G FILM LIBRARY ORD ERABLES [place], [place] documented in this encounter Visit Diagnoses Not on filedocumented in this encounter Care Teams Head Start Director Relationship Specialty Start Date End Date Diana Weaver MD [address] [place] [address] PCP - General 05/22/10 09/11/17 documented as of this encounter
--- OUTSIDE RECORDS SUMMARY | 2024-05-10 18:25 | XMS_ITS | Encounter Summary ---
[place] [address] Care Team Providers Care Assembly Loader Name Role Phone Diana Weaver MD Primary Care Provider [phone] Reason for Referral * Diagnostic Test (Routine) - Specialty Diagnoses / Procedures Referred By Contac t Referred To Contact Cardiology Diagnoses Transient cerebral ischemia, unspecified type Procedures Echocardiogram Transthoracic(Leb) Wanda Delaney MD [address] [place] [address] [facility] [place] [address] Referral ID Status Reason Start Date Expiration Date Visits Requested Visits Authorized [id number] Specialty Service Requested 11/01/2015 10/31/2016 1 1 Reason for Visit * Diagnostic Test (Routine) - Closed Specialty Diagnoses / Procedures Referred By Contac t Referred To Contact Cardiology Diagnoses ECHOCARDIOGRAM for TIA Wanda Delaney MD [address] [place] [address] [facility] Cardiology [address] [place] [address] Referral ID Status Reason Start Date Expiration Date V isits Requested Visits Authorized [id number] Closed Connection Center PCP Updated and/or Approved 10/31/2015 10/30/2016 1 1 Encounter Details Date Type Department Care Team (Latest Contact Info) Description 11/16/2015 2:50 PM EDT - 11/16/2015 11:59 PM EDT Hospital Encounter [place] [address] Transient cerebral ischemia, unspecified type Discharge Disposition: [...] Office Visit Psychiatry [place] [address] Simona Harper, PhD documented as of this encounter Procedures Procedure Name Priority Date/Time Associated Diagnosis Comments ECHO COMPLETE Routine 11/16/2015 4:06 PM EDT Transient cerebral ischemia, unspecified type documented in this encounter Results * ECHO COMPLETE (11/16/2015 4:06 PM EDT) EF 65 HEARTLAB SYSTEM Anatomical Region Laterality Modality Other 11/17/2015 Narrative 11/17/2015 11:05 AM EDT Procedure: ?Transthoracic Echocardiogram Patient: ?LORIN SEAY L ? (Age): 1945(70y) Med Rec#: ? [id number] ?Sex: ?M ? [place] Loc: ? [facility] ?Ht / Wt: ??180.3(cm)/84(kg Pt. Loc: ?Echo Lab ?BSA: ?2.04 Study Date: ?? 11/16/2015 ?Pt. Type: Outpatient Tape: ? Referring: Wanda Delaney MD Reading: Devang Burns ([id number]) Ingredient Handler: Monse Trent Diagnosis: *ICD-10-PCS Transient cerebral ischemic attack, unspecified (G45.9) CPT Codes: *Echo Full (32796) *Spectral Doppler (13711) *Color Doppler (95625) BP: ? 157/80 SUMMARY: 1. No cardiac [...] E-wave Vmax ?0.6 ?m/sec ? MV deceleration lhow317.2 ?msec ? MV A-wave Vmax ?0.6 ?m/sec ? MV E:A ratio ?1 ?ratio ? LV septal e' Vmax ?? 0.1 ?m/sec ? LV E:e' septal ratio7.6 ?ratio ? Tricuspid Valve ?Value ?Units (Range) ? TR Vmax ? 2.2 ?m/sec ? TR peak gradient ?20.1 ? mmHg ? RAP ? 3 ?mmHg ? RVSP ?23 ? mmHg ? Pulmonic Valve/Qp:Qs ?Value ?Units (Range) ? CA end-diastolic Vma0.6 ?m/sec ? PA end-diastolic pre4.6 [...] ? Mid-Inferior ?Normal ? Mid-Inferoseptal ?Normal ? Turon-Septal ? Normal ? Turon-Anterior ? Normal ? Turon-Lateral ?Normal ? Turon-Inferior ? Normal ? [place]on-Tip ?Normal ? This report has been electronically signed by: Devang Burns MD ? 11/17/2015 09:12:15 Images reviewed and interpretation verified [facility] Cardiac Ultrasound Laboratory Procedure Note Devang Burns MD - 11/17/2015 Procedure: Transthoracic Echocardiogram Patient: LORIN GREGORIO(Age): 1945(70y) Med Rec#: [id number] Sex: M Site Loc: [facility] Ht / Wt: 180.3(cm)/84(kg Pt. Loc: Echo Lab BSA: 2.04 Study Date: 11/16/2015 Pt. Type: Outpatient Tape: Referring: Wanda Delaney MD Reading: Devang Burns ([id number]) Ingredient Handler: Monse Trent Diagnosis: *ICD-10-PCS Transient cerebral ischemic attack, unspecified (G45.9) CPT Codes: *Echo Full (67699) *Spectral Doppler (14306) *Color Doppler (83530) BP: 157/80 SUMMARY: 1. No cardiac source [...] MV E-wave Vmax 0.6 m/sec MV deceleration [id number] msec MV A-wave Vmax 0.6 m/sec MV E:A ratio 1 ratio LV septal e' Vmax 0.1 m/sec LV E:e' septal ratio7.6 ratio Tricuspid Valve Value Units (Range) TR Vmax 2.2 m/sec TR peak gradient 20.1 mmHg RAP 3 mmHg RVSP 23 mmHg Pulmonic Valve/Qp:Qs Value Units (Range) CA end-diastolic Vma0.6 m/sec PA end-diastolic pre4.6 mmHg Measurement Trending Name 11/16/2015 LVIDd (2D) 4.82 LVIDs (2D) 3.07 Wall Motion: Segment Name Rest Base-Anteroseptal Normal Base-Anterior Normal Base-Anterolateral Normal Base-Posterolateral Normal Base-Inferior Normal Base-Inferoseptal Normal Mid-Anteroseptal Normal Mid-Anterior Normal Mid-Anterolateral Normal Mid-Posterolateral Normal Mid-Inferior Normal Mid-Inferoseptal Normal Turon-Septal Normal Turon-Anterior Normal Turon-Lateral Normal Turon-Inferior Normal Turon-Tip Normal This report has been electronically signed by: Devang Burns MD 11/17/2015 09:12:15 Images reviewed and interpretation verified [facility] Cardiac Ultrasound Laboratory Wanda Delaney MD ECHO ORDERABLES documented in this encounter Visit Diagnoses Diagnosis Transient cerebral ischemia, unspecified type documented in this encounter Care Teams Assembly Loader Relationship Specialty Start Date End Date Diana Weaver MD [address] [place] [address] PCP - General 05/22/10 09/11/17 documented as of this encounter
--- OUTSIDE RECORDS SUMMARY | 2024-05-10 18:25 | XMS_ITS | Encounter Summary ---
Author Organization [facility] [place] [address] Care Team Providers Care Social Services Assistant Name Role Phone Diana Weaver MD Primary Care Provider [phone] Reason for Referral * Physical Therapy (Routine) - Closed Specialty Diagnoses / Procedures Referred By Ronald parada Referred To Contact Physical Therapy Diagnoses Disorder of rotator cuff of both shoulders Oliver Carter MD [facility] [place] [address] [address] [place] [address] Referral ID Status Reason Start Date Expiration Date V isits Requested Visits Authorized [id number] Closed Evaluate and Treat 04/16/2016 04/16/2017 1 1 Reason for Visit * Reason Comments Joint Pain L shoulder pain and pt. wants disucs surgical questions Encounter Details Date Type Department Care Team (Late st Contact Info) Description 04/16/2016 10:30 AM EDT Office Visit [place] [address] Oliver Carter MD [facility] [place] [address] Disorder of rotator cuff of both shoulders [...] newly symptomatic left side. Oliver Carter MD [facility] Orthopaedic Surgery Dept. of Orthopaedic Surgery [facility] documented in this encounter Plan of Treatment Upcoming Encounters Date Type Department Care Team (Late st Contact Info) Description 05/11/2024 9:00 AM EST Office Visit Psychiatry and Behavioral [place] [address] Simona Harper, PhD Scheduled Referrals Name Type [...] mg documented in this encounter Care Teams Social Services Assistant Relationship Specialty Start Date End Date Diana Weaver MD [address] [place] [address] PCP - General 05/22/10 09/11/17 documented as of this encounter
--- OUTSIDE RECORDS SUMMARY | 2024-05-10 18:25 | XMS_ITS | Encounter Summary ---
Author Organization [facility] Address [facility] [place] [address] Care Team Providers Care Hris Manager Name Role Phone Diana Weaver MD Primary Care Provider [phone] Reason for Visit * Reason Onset Date Comments Injections 05/01/2017 Encounter Details Date Type Department Care Team (Late st Contact Info) Description 05/01/2017 Telephone [place] [address] Oliver Carter MD [facility] [place] [address] Injections Social History Tobacco Use Types Packs/Day [...] be able. Please call him back at [phone]. * Telephone Encounter - Priti Vasques - [...] 9:56 AM EDT Patient is leaving for [place] then so 07/18/17 is there nothing * Telephone Encounter - Priti Vasques - 05/02/2017 9:47 AM EDT Images from the original note were not included. Patient is looking for a Cortisone injection of the Right Shoulder not Kenalog Injection Aguila Flynn, RN to [facility] Thompson ?? 05/01/17 11:50 AM It is too soon to get another Kenalog injection. Shoulders require 4 months between injections and his last injection was 03/18/2017, so he would not be able to get another injection until after 07/18/2017. * Telephone Encounter - Citlalli Thompson - 05/01/2017 10:35 AM EDT Best phone # to reach patient for [phone] Patient requests appointment for injection of the [...] Office Visit Psychiatry [place] [address] Simona Harper, PhD documented as of this encounter Visit Diagnoses Not on filedocumented in this encounter Care Teams Hris Manager Relationship Specialty Start Date End Date Diana Weaver MD [address] [place] [address] PCP - General 05/22/10 09/11/17 documented as of this encounter
--- OUTSIDE RECORDS SUMMARY | 2024-05-10 18:25 | XMS_ITS | Encounter Summary ---
Author Organization [facility] [place] [address] Care Team Providers Care Electric Mule Operator Name Role Phone Diana Weaver MD Primary Care Provider [phone] Reason for Referral * Diagnostic Test (Routine) - Closed Specialty Diagnoses / Procedures Referred By Ronald parada Referred To Contact Radiology Diagnoses Disorder of rotator cuff, unspecified laterality Procedures MRI Shoulder Right WO Contrast (GENERIC) Oliver Carter MD [facility] [place] [address] Referral ID Status Reason Start Date Expiration Date V isits Requested Visits Authorized [id number] Closed Specialty Service Requested 02/13/2016 02/12/2017 1 1 Reason for Visit * Reason Comments Bilateral Shoulder Pain R>L * Consultation (Routine) - Closed Specialty Diagnoses / Procedures Referred By Ronald parada Referred To Contact Orthopaedics Diagnoses Bilateral shoulder pain w/significant loss of motion in right Diana Weaver MD [address] [address] Oliver Carter MD [facility] [place] [address] Referral ID Status Reason Start Date Expiration Date V isits Requested Visits Authorized [id number] Closed Consult, Test & Treat Connection Center 12/28/2015 12/27/2016 1 1 Encounter Details Date Type Department Care Team (Late st Contact Info) Description 02/13/2016 10:00 AM EDT Office [place] [address] Oliver Carter MD [facility] [place] [address] Disorder of rotator cuff, unspecified laterality Social [...] Office Visit Psychiatry and [place] [address] Simona Harper, PhD documented as [...] laterality documented in this encounter Care Teams Electric Mule Operator Relationship Specialty Start Date End Date Diana Weaver MD [address] [place] [address] PCP - General 05/22/10 09/11/17 documented as of this encounter
--- OUTSIDE RECORDS SUMMARY | 2024-05-10 18:25 | XMS_ITS | Encounter Summary ---
[place] [address] Care Team Providers Care Manager Compensation Name Role Phone Diana Weaver MD Primary Care Provider [phone] Reason for Referral * Diagnostic Test (Routine) - Closed Specialty Diagnoses / Procedures Referred By Contac t Referred To Contact Radiology Diagnoses Disorder of rotator cuff, unspecified laterality Procedures MRI Shoulder Right WO Contrast (GENERIC) Oliver Carter MD [facility] [place] [address] Referral ID Status Reason Start Date Expiration Date V isits Requested Visits Authorized [id number] Closed Specialty Service Requested 02/13/2016 02/12/2017 1 1 Reason for Visit * Diagnostic Test (Routine) - Closed Specialty Diagnoses / Procedures Referred By Contac t Referred To Contact Radiology Diagnoses Disorder of rotator cuff, unspecified laterality Procedures MRI Shoulder Right WO Contrast (GENERIC) Oliver Carter MD [facility] [place] [address] Referral ID Status Reason Start Date Expiration Date V isits Requested Visits Authorized [id number] Closed Specialty Service Requested 02/13/2016 02/12/2017 1 1 Encounter Details Date Type Department Care Team (Latest Contact Info) Description 03/01/2016 9:17 AM EDT - 03/01/2016 11:59 PM EDT Hospital [place] [address] Oliver Carter MD [facility] [place] [address] Disorder of rotator cuff, unspecified laterality Discharge [...] Office Visit Psychiatry [place] [address] Simona Harper, PhD documented as [...] laterality documented in this encounter Care Teams Manager Compensation Relationship Specialty Start Date End Date Diana Weaver MD [address] [place] [address] PCP - General 05/22/10 09/11/17 documented as of this encounter
--- OUTSIDE RECORDS SUMMARY | 2024-05-10 18:25 | XMS_ITS | Encounter Summary ---
Author Organization [facility] Address [facility] [place] [address] Care Team Providers Care Dye Line Operator Name Role Phone Diana Weaver MD Primary Care Provider [phone] Reason for Visit * Reason Comments Follow-up R shoulder pain Encounter Details Date Type Department Care Team (Late st Contact Info) Description 03/18/2017 10:00 AM EDT Office Visit [place] [address] Oliver Carter MD [facility] DR [place] [address] Rotator cuff disorder, unspecified laterality Social History [...] Office Visit Psychiatry and Behavioral [place] [address] Simona Harper, PhD documented as of this encounter Visit Diagnoses Diagnosis Rotator cuff disorder, unspecified laterality documented in this encounter Administered Medications Inactive Administered Medications - up to 3 most recent administrations Medication Order MAR Action Action Date Dose Rate Site triamcinolone acetonide (KENALOG-40) injection 40 mg 40 mg, Intra-articular, ONCE, 1 dose, On 03/18/17 at 1145, Routine Given 03/18/2017 11:18 AM EDT 40 mg documented in this encounter Care Teams Dye Line Operator Relationship Specialty Start Date End Date Diana Weaver MD [address] [place] [address] PCP - General 05/22/10 09/11/17 documented as of this encounter
--- OUTSIDE RECORDS SUMMARY | 2024-05-10 18:25 | XMS_ITS | Encounter Summary ---
Author Organization [facility] Address [facility] [place] [address] Care Team Providers Care Loan Auditor Name Role Phone Diana Weaver MD Primary Care Provider [phone] Encounter Details Date Type Department Care Team (Late st Contact Info) Description 01/18/2016 9:15 AM EDT Office Visit Physical Therapy at [facility] [address] [place] [address] Marvin Wiseman, PT [facility] PHYSICAL MEDICINE & [place] [address] Acute pain of both shoulders Social History [...] and treatment options, activity limitations and modifications Lilibeth/asus: 52/53 vs 52 = same A: Pt [...] of AROM in order maximize function Therapy Watch And Clock Repair Clerk Goals (8 weeks) Patient to... 1. improve [...] Office Visit Psychiatry [place] [address] Simona Harper, PhD documented as of this encounter Visit Diagnoses Diagnosis Acute pain of both shoulders documented in this encounter Care Teams Loan Auditor Relationship Specialty Start Date End Date Diana Weaver MD [address] [place] [address] PCP - General 05/22/10 09/11/17 documented as of this encounter
--- OUTSIDE RECORDS SUMMARY | 2024-05-10 18:25 | XMS_ITS | Encounter Summary ---
Author Organization [facility] [place] [address] Care Team Providers Care Automotive Professional Name Role Phone Diana Weaver MD Primary Care Provider [phone] Encounter Details Date Type Department Care Team (Late st Contact Info) Description 12/19/2015 9:15 AM EDT Office Visit Physical Therapy at [facility] [address] [place] [address] Evangelist Be, RISK PREVENTION ENGINEER [facility] PHYSICAL MEDICINE & [place] [address] Acute pain of both shoulders Social History [...] this encounter Progress Notes * Evangelist Be, RISK PREVENTION ENGINEER - 12/19/2015 9:13 AM EDT PHYSICAL THERAPY [...] of AROM in order maximize function Therapy Arc Welding Machine Operator Goals (8 weeks) Patient to... 1. improve [...] Visit Psychiatry and [place] [address] Simona Harper, PhD documented as of this encounter Visit Diagnoses Diagnosis Acute pain of both shoulders documented in this encounter Care Teams Automotive Professional Relationship Specialty Start Date End Date Diana Weaver MD [address] [place] [address] PCP - General 05/22/10 09/11/17 documented as of this encounter
--- OUTSIDE RECORDS SUMMARY | 2024-05-10 18:25 | XMS_ITS | Encounter Summary ---
Author Organization [facility] Address [facility] [place] [address] Care Team Providers Care Molding Machine Tender Name Role Phone Diana Weaver MD Primary Care Provider [phone] Reason for Visit * Consultation (Routine) - Closed Specialty Diagnoses / Procedures Referred By Ronald parada Referred To Contact Neurology Diagnoses recurrent TIAs Shayy Diallo APRN [address] [place] [address] [facility] [address] [place] [address] Referral ID Status Reason Start Date Expiration Date V isits Requested Visits Authorized [id number] Closed Consult, Test & Treat Connection [facility] 01/09/2016 01/08/2017 1 1 Encounter Details Date Type Department Care Team (Late st Contact Info) Description 02/13/2016 11:00 AM EDT Office [place] [address] Washington Deluca MD [facility] [place] [address] Migraine aura without headache; Transient [...] Disease and Stroke Program Department of Neurology [place] [id number] t: [phone] / f: [phone] Date of Appointment: 02/13/2016 Patient: Alvin [facility] PCP: DIANA WEAVER MD Consultation Requested By: Diana Weaver Md [address] [place] [phone] This 70 y.o. male is evaluated because of episodes thought to be possible TIAs. 14 yo had encepahlitis and in coma for 10 hours while in [facility]. Also seeing Ortho for shoulder issues. [...] get attenetion [place] didn't want to. This passed without other events. On January 05 he had another event. Was in [employer] in [facility]. Had peripheral visual changes onR side, initially [...] to our resident after he went to [facility] ED and Plavix and Lipitor [...] Office Visit Psychiatry and [place] [address] Simona Harper, PhD documented as of this encounter Visit Diagnoses Diagnosis Migraine aura without headache Migraine with aura, without mention of intractable migraine without mention of status migrainosus Transient cerebral ischemia, unspecified type documented in this encounter Care Teams Molding Machine Tender Relationship Specialty Start Date End Date Diana Weaver MD [address] [place] [address] PCP - General 05/22/10 09/11/17 documented as of this encounter
--- OUTSIDE RECORDS SUMMARY | 2024-05-10 18:25 | XMS_ITS | Encounter Summary ---
[place] [address] Care Team Providers Care A&P Technician Name Role Phone iDana Weaver MD Primary Care Provider Reason for Visit * Auth/Cert Specialty Diagnoses / Procedures Referred By Ronald t Referred To Contact Diagnoses CVA (cerebral vascular accident) CVA Referral ID Status Reason Start Date Expiration Date Visits Re quested Visits Authorized [id number] 1 1 Encounter Details Date Type Department Care Team (Latest Contact Info) Description 06/02/2017 1:25 PM EST - 06/04/2017 12:57 PM [facility] Hospital Encounter [address] [place] [address] Washington Deluca MD [facility] [place] [address] Dm Fenton MD [facility] [place] [address] Cerebrovascular accident (CVA), unspecified mechanism; Pain Discharge [...] Alvin Cat Patient Age: 71 y.o. Language: Serbian Race: White Ethnicity: Not nor Admit date: [...] author(s) of this discharge summary through the [facility] Account Assistant . Discharge Diagnoses: Aphasia possibly due to [...] BPH who presents as a transfer from [facility] for acute onset aphasia now s/p tPA [...] without headache. ?? The patient presented to [facility] with these symptoms. He had an NIHSS that was determined to be 4 and later was 6. BP was initially 186 but decreased to 166. He had a head CT that showed no acute intracranial process. Risks and benefits of tPA were discussed and it was determined that he had no contraindications. He received tPA at 11:53am. He was transferred to [facility] for post tPA management and consideration of [...] were admitted to the neurology service at [facility]. Your diagnosis: aphasia due to migraine with [...] followup appointment in the neurology clinic at [facility]. If not already listed in this document, we will contact you to schedule this appointment. -- If 1 week passes by after you are discharged and you still do not have an appointment, please call [phone]. Future Appointments and Orders Future Appointments Provider Department Dept Phone 06/18/2017 9:00 AM Priti Lilly APRN Orthopaed[facility] [place] [phone] 06/18/2017 9:50 AM [facility] DX ROOM 2 XRay at [place] [phone] Please go to E Business Consultant Area ([place] Location). 06/18/2017 10:[address] [facility] [place] [phone] 07/02/2017 1:00 PM Washington Deluca MD [facility]rology [facility] [place] [phone] General Instructions None Future Appointments and Orders Future Appointments Provider Department Dept Phone 06/18/2017 9:00 AM Priti Lilly APRN [facility] [place] [phone] 06/18/2017 9:50 AM [facility] DX ROOM 2 XRay at [place] [phone] Please go to E Business Consultant Area ([place] Location). 06/18/2017 10:[address] [facility] [place] [phone] 07/02/2017 1:00 PM Washington Deluca MD Neurology at [place] [phone] Primary Care Provider: Diana Weaver MD [place] [id number] / [facility] [id number] Discharge References/Attachments None documented in this encounter Discharge Instructions * Patient Instructions* Andrew De La O MD - 06/04/2017 11:53 AM EST You were admitted to the neurology service at [facility]. Your diagnosis: aphasia due to migraine with [...] followup appointment in the neurology clinic at [facility]. If not already listed in this document, we will contact you to schedule this appointment. -- If 1 week passes by after you are discharged and you still do not have an appointment, please call [phone]. Future Appointments and Orders Future Appointments Provider Department Dept Phone 06/18/2017 9:00 AM Priti Lilly APRN [facility]opa[facility]ics at [place] [phone] 06/18/2017 9:50 AM [facility] DX ROOM 2 XRay at [place] [phone] Please go to E [employer] Consultant Area 3T ([place] Location). 06/18/2017 10:[address] [facility] [place] [phone] 07/02/2017 1:00 PM Washington Deluca MD Neurology at [place] [phone] documented in this encounter Medications at Time [...] 7:15 AM EST Cardiac/Telemetry Nursing Progress Note [id number] Subjective: No events overnight. Sinus rhythm. Rare PVCs. SD- 0.15, QRS- 0.11, RR-0.96, QT- 0.40, QTc- [...] Date: 06/02/2017 Attending: Dr. Deluca Patient ID: Avlin Cat is a 71 y.o. right handed male with PMH of BPH who presented as a transfer from [facility] for acute onset aphasia now s/p tPA [...] CT w/out: obtained prior to admission at [facility]: no acute intracranial processes ?? CTA CACO: no focal area of stenosis or occlusion in the head and neck vasculature ? Assessment and Plan: Alvin Cat is a 71 y.o. right handed male with PMH of BPH who presented as a transfer from [facility] for acute onset aphasia now s/p tPA [...] head & neck completed - EEG completed -PT/OT/NURSING UNIT CLERK ?? # Prophylaxis - No DVT prophylaxis first 24 hours post tPA -RBOs -SCDs ?? # Supportive care - NURSING UNIT CLERK to evaluate for help determining appropriate diet -Tylenol PRN -Up with assistance ?? # FULL code ? Shira Valencia MD PGY2-Neurology Personal Pager #[phone] Vascular Neurology #[phone] Associated attestation - Washington Deluca MD - [...] BPH who presented as a transfer from [facility] for acute onset aphasia now s/p tPA [...] %, lidocaine, labetalol, enalaprilat, niCARdipine AND Vital fiihaY1T AND Cardiac Monitoring, bisacodyl, magnesium hydroxide, acetaminophen [...] gargled, no dysarthria CN: PERRL, EOMI, visual fitch [...] Negative mcL Appearance UA Clear Clear Spec [place] UA 1.026 1.002 - 1.030 Color UA Yellow Yellow Culture Reflexed No Urinalysis Microscopic Exam Result Value Ref Range RBC UA 1 0 - 3 /HPF WBC UA 1 0 - 3 /HPF Squam Epith UA <1 <=4 /HPF Consults, Diagnostic Tests, and Imaging: Head CT w/out: obtained prior to admission at [facility]: no acute intracranial processes ?? CTA CACO: no focal area of stenosis or occlusion in the head and neck vasculature ? Assessment and Plan: Alvin Cat is a 71 y.o. right handed male with PMH of BPH who presented as a transfer from [facility] for acute onset aphasia now s/p tPA [...] head & neck completed - EEG completed -PT/OT/NURSING UNIT CLERK ?? # Prophylaxis - No DVT prophylaxis first 24 hours post tPA -RBOs -SCDs ?? # Supportive care - NURSING UNIT CLERK to evaluate for help determining appropriate diet -Tylenol PRN -Up with assistance ?? # FULL code ? Andrew De La O MD PGY-3 Vascular Neurology Pager [phone] Associated attestation - Washington Deluca MD - [...] BPH who presents as a transfer from [facility] for acute onset aphasia now s/p tPA [...] aura without headache. The patient presented to [facility] with these symptoms. He had an NIHSS that was determined to be 4 and later was 6. BP was initially 186 but decreased to 166. He had a head CT that showed no acute intracranial process. Risks and benefits of tPA were discussed and it was determined that he had no contraindications. He received tPA at 11:53am. He was transferred to [facility] for post tPA management and consideration of [...] MAYRA performed by Renzo Velasquez MD at [facility] MAIN OR Home Medications: No current facility-administered [...] CT w/out: obtained prior to admission at [facility]: no acute intracranial processes CTA CACO reviewed with Dr. Godoy at 14:00 - no focal area of stenosis or occlusion in the head andneck vasculature Swallow Screen Results: PASSED (All YES responses) Time 14:30 Assessment and Plan: Alvin Cat is a 71 y.o. right handed male with PMH of BPH who presents as a transfer from [facility] for acute onset aphasia now s/p tPA [...] brain wo contrast -CTA head & neck -PT/OT/NURSING UNIT CLERK # Prophylaxis - No DVT prophylaxis first 24 hours post tPA -RBOs -SCDs # Supportive care - NURSING UNIT CLERK to evaluate for help determining appropriate diet -Tylenol PRN -Up with assistance # FULL code Andrew De La O MD PGY-3 Vascular Neurology Pager [phone] Standard [facility] Swallow Screen: This screen is to be [...] diet as medical provider deems appropriate. Consider NURSING UNIT CLERK consult for full evaluation and diet recommendations. ??? If NO to any of the responses, stop immediately, keep patient NPO and notify physician. ??? Associated attestation - [place] Deluca MD - 06/02/2017 10:33 PM EST [...] earlier and close friend Dr Mohan in [place] at her request. I have examined the patient myself and personally reviewed all studies. In addition, I certify thatI am a [facility]-H credentialed attending provider with admitting privileges and that the patient meets or has met medical necessity to require an inpatient IPI level of care meeting a minimum of two midnights or is on the [facility] inpatient only procedure list (status C) due [...] ADMISSION HISTORY AND PHYSICAL Alvin Cat : [id number] History of Present Illness: Alvin Cat ( [...] reatment, NIH stroke scale 6. Transferred to [facility] for post TPA management, further neurovascular imaging [...] MAYRA performed by Renzo Velasquez MD at [facility] MAIN OR Allergies: Allergies Allergen Reactions ??? [...] BILIDIR Not Perf Imaging: CTA carotids & [place] w/o contrast, 06/02/2017: official read [...] PIV Primary Service: Critical Care, Neurology Consults: -PT/OT/NURSING UNIT CLERK Code Status: Full Code Dispo: -admit to [...] negative. EKG NSR. He was transferred to [facility] for post-tPA management, where CTA showed no [...] PM ESTAssociated Order(s): EEG AWAKE, ASLEEP, DROWSY [facility] Department of Neurology Inpatient EEG [...] channel digitized electroencephalogram was performed in the [facility] Clinical Neurophysiology Laboratory. The 10/20 international system of electrode placement was used and bipolar and referential electrode montages were recorded. In addition to EEG the patient was monitored for EKGand lateral/vertical eye movements. Video was recorded during the session. The duration of the recording was 30 minutes. TOILET PRODUCTS MOLDER'S REPORT: Performed by: SB Patient was not [...] MD, PhD Department of Neurology Personal Pager #[phone] 06/02/2017 8:37 PM documented in this encounter [...] history of encephalitis who was transferred from [facility] for acute onset receptive aphasia and severe frontal [place] s/p tPA, 06/02 CACO and06/[address] Head both negative. Interval History: - Transferred to , [facility] overnight, no apparent aphasia - 06/03 CT [...] L Elbow flexion 5/5 R, 5/5 L Data Modeling Architect 5/5 R, 5/5 L Thumb abduction (APB) [...] Diagnostic Tests, and Imaging: Consults PT/ OT/ NURSING UNIT CLERK ?? Diagnostic Tests ?? 06/02/17 EKG - wnl ?? 06/02/17 EEG INTERPRETATION: This EEG is abnormal due to marked generalized slowing, with additional focal higher amplitude slowing at the left fronto-temporal region. ?? 06/02/17 Blood Culture x2 NG@1day 06/02/17 UA- wnl ?? Imaging [facility] 06/03/17 CT HEAD WO CONTRAST IMPRESSION No acute intracranial hemorrhage. ?? [facility] 06/02/17 CT CAROTIDS AND [place] W CONTRAST IMPRESSION 1. ??Multifocal [...] when clinically appropriate for better evaluation. ?? [facility] 06/02 XR CHEST PA OR AP 1 VIEW IMPRESSION No pneumonia or other acute cardiopulmonary process [facility] 06/02/17 CT WO CONTRAST No acute intracranial process Assessment / Plan: Alvin Cat is a 71 y.o. male right-handed male with a past history of insomnia, dilated cardiomyopathy, BPH, OA, episodes of word-finding difficulty, migraine aura without headache, and remotehistory of encephalitis who was transferred from [facility] for acute onset receptive aphasia and severe frontal [place] now s/p tPA, 06/02 CACO and [facility] noncon CT negative for stenosis, occlusion, and [...] WO contrast completed - EEG completed - PT/OT/NURSING UNIT CLERK ? # Prophylaxis - RBOs - Lovenox, [...] (Interventions Implemented as Appropriate) 06/03/17 0856 06/03/17 2404 Coping/Psychosocial Plan Of Care Reviewed With -- [...] aura without headache. The patient presented to [facility] with these symptoms. He had an NIHSS that was determined to be 4 and later was 6. BP was initially 186 but decreased to 166. He had a head CT that showed no acute intracranial process. Risks and benefits of tPA were discussed and it was determined that he had no contraindications. He received tPA at 11:53am. He was transferred to [facility] for post tPA management and consideration of [...] She is not a partneror significant other. [place] surrogacy law and process of guardianship explained. If AD's have not been completed Any patient receiving care at [facility] must abide by [place] law. The hierarchy for surrogate decision making [...] (i) The agent with financial power of corporate attorney or a conservator appointed in accordance with RSA 464-A. (j) The guardian of the patient???s estate. Current Coping/Education/Information Needs: Current coping questions and concerns have been addressed. He understands that when he moves to a regular floor he will work with another nurse case management until discharge. Current Functional Ability: Requires the assistance of one with ADL's. PT/OT to evaluate. Functional Status Prior to Admission: Ambulates without assistance, performs ADL's and IADL's independently. Home Environment: There is one step into his home without rails, he lives alone , no pets, girlfriend lives next door above garage at [address] [facility] [address] Social & Family Supports/Community Resources: His girlfriend is his support system and some of his physicians. His daughter Susan lives out of town. Emergency Contact 1 Emergency Contact 2 ?Susan Huerta (Child) Elicia Romero (Friend) [phone] (H) [phone] (M) Behavioral Health History: Depression Substance Use/Abuse: Tobacco use, he had a 2ppd habit for 25 years and quit 30 years ago. Describeshimself as a moderate drinker, and smokes marijuana nightly to help him sleep. Other Pertinent/Service Specific Information: None at this time. Health/Prescription Coverage: Primary Insurance: MEDICARE Secondary Insurance: FINANCIAL ASSISTANCE Prescription Coverage: TBD Preferred Pharmacy: [facility] in [place], [place] Other: N/A Primary Care Provider: Diana Weaver MD [phone] Patient/Caregiver Goals of Treatment: To go home [...] of care planning. Lary Naik RN Pager: [phone] * Plan of Care - Hari Mahajan OT - 06/03/2017 3:59 PM EST Problem: Patient Care Overview Goal: Plan of Care Review Outcome: Ongoing (Interventions Implemented as Appropriate) 06/03/17 5484 Coping/Psychosocial Plan Of Care Reviewed With patient Occupational Therapy Evaluation Pertinent History of Current Problem: 71 y.o. right handed male with PMH of BPH who presented as a transfer from [facility] for acute onset aphasia now s/p tPA [...] needswhile hospitalized. Therapy Frequency: evaluation only Pager: [phone] HARI MAHAJAN OT 06/03/2017 Occupational Therapy Rehabilitation [...] Outcome: Ongoing (Interventions Implemented as Appropriate) 06/03/17 2045 Coping/Psychosocial Plan Of Care Reviewed With patient Physical Therapy Treatment Number: 1 Pertinent History of Current Problem: 71 y/o male presented to [facility] with acute aphasia. s/p tPA at 11:53am. ICU overnight. ST/PT/OT consulted. Living Environment Comment: Lives alone in [place], [place] & home has only one stone step to enter & no stairs indoors. Girlfriend lives near. They travel & live in [place] after the firstof year he reports. Prior Functional Level Comment: Independent, go to pool [facility] 4 X/week. Precautions Comments: up with assistance, [...] goals met. Anticipated Discharge Disposition: home Pager: [phone] EUN SPENCE, PT Inpatient Physical Therapy 2017 [...] & stairs with good balance. PT Goal, [place] Level independent PT Goal, Additional Goal Pt [...] post tpa CT scan completed at 1430. NURSING UNIT CLERK cleared pt for a regular diet (he [...] and ADLs]: RN/ANGELES Surveillance [continuous indirect monitoring]: [place] ICU Monitor Patient-specific fall prevention interventions for [...] history of encephalitis who was transferred from [facility] for acute onset receptive aphasia and severe [...] x 4, not yet at baseline - NURSING UNIT CLERK today: no dysphagia or aspiration risk Medications: [...] L Elbow flexion 5/5 R, 5/5 L Data Modeling Architect 5/5 R, 5/5 L Thumb abduction (APB) [...] Range Ab Screen Interp Negative Expires at 6829 on: 06/05/2017 ABORH Recheck Status Collection Time: [...] Negative mcL Appearance UA Clear Clear Spec [place] UA 1.026 1.002 - 1.030 Color UA [...] QTC Calculated (Bezet) 425 ms Calculated P [place] 69 degrees Calculated R [place] 11 degrees Calculated T [place] 34 degrees INTERPRETATION Normal sinus rhythm Possible Left atrial enlargement Borderline ECG When compared with ECG of 26-DEC-2011 06:01, Non-specific change in ST segment in Inferior leads Nonspecific T wave abnormality now evident in Inferior leads Confirmed by MD Simón, Jorge Harvey ([id number]) on 06/03/2017 9:39:43 AM Hemoglobin A1c Collection [...] Diagnostic Tests, and Imaging: Consults PT/ OT/ NURSING UNIT CLERK Diagnostic Tests 06/02/17 EKG - wnl 06/02/17 EEG INTERPRETATION: This EEG is abnormal due to marked generalized slowing, with additional focal higher amplitude slowing at the left fronto-temporal region. 06/02/17 Blood Culture x2 in process 06/02/17 UA- wnl Imaging [place] 06/02/17 CT WO CONTRAST No acute intracranial process [facility] 06/02/17 CT CAROTIDS AND [place] OF [place] W CONTRAST IMPRESSION 1. Multifocal [...] considered when clinically appropriate for better evaluation. [facility] 06/02 XR CHEST PA OR AP 1 VIEW IMPRESSION No pneumonia or other acute cardiopulmonary process. Assessment / Plan: Alvin Cat is a 71 y.o. male right handed male with past history of insomnia, BPH, episodes of word-finding difficulties, migraine aura without headache, and remote history of encephalitis whowas transferred from [facility] for acute onset receptive aphasia and severe frontal [place] now s/p tPA, [facility] and [facility] noncon CT negative for stenosis, occlusion, and [...] & neck completed - EEG completed - PT/OT/NURSING UNIT CLERK ? # Prophylaxis - RBOs - SCDs - consider heparin pending results of noncon CT head ? # Supportive care - Regular diet - Trend and replete lytes prn - Remove astudillo - Tylenol PRN - Up with assistance Dispo: transfer to floor ? # FULL code ?? Eyitemi Y Jayjay MS4 06/03/2017 * Plan of Care - Anette Gimenez, NURSING UNIT CLERK - 06/03/2017 9:07 AM EST Problem: Patient [...] ?? Pt will likely benefit from additional NURSING UNIT CLERK tx upon DC from acute care setting unless asphasia spontaneously resolves. Anette Gimenez MA, [facility]-NURSING UNIT CLERK Speech-Language Pathologist Rehabilitation Medicine [phone] Pager #[phone] Problem: Acute Rehab Services Goal & Intervention [...] Consult Note - Yessi Koehler [facility] - 06/02/2017 5:55 PM EST Clinical Pharmacist Note-Vanc Alvin Cat [id number] Alvin Cat is a 71 y.o. male is being monitored due to antibiotic therapy which includes intravenous vancomycin. 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 Alternately, during off-hours you may call [phone] to contact a pharmacist. YESSI KOEHLER RPH Pager [phone] documented in this encounter Plan of Treatment Upcoming Encounters Date Type Department Care Team (Late st Contact Info) Description 05/11/2024 9:00 AM EST Office Visit Psychiatry [place] [phone] Simona Harper, PhD documented as of this encounter Procedures Procedure Name Priority Date/Time Associated Diagnosis Comments CNA LTC SCAN 06/05/2017 12:00 AM EST MRI BRAIN [...] 06/02/2017 2:[address] CAROTIDS AND [place] W CONTRAST Routine 06/02/2017 2:03 PM EST FILM LIBRARY STORAGE ONLY DX CHEST Routine 06/02/2017 12:00 AM EST Pain FILM LIBRARY STORAGE ONLY CT HEAD Routine 06/01/2017 12:00 AM EST Pain documented in this encounter Results * SCAN DOC: CNA LTC (06/05/2017 12:00 AM EST) Anatomical Region Laterality [...] infarction, hemorrhage or encephalitis. Washington Deluca MD [facility] MRI ORDERABLES * Differential, Automated (06/04/2017 5:02 AM EST) Neutrophil % 61.3 % [facility] Neutrophil Absolute 3.25 1.70 - 6.10 x10(3)/[facility] Lymph % 24.0 % [facility] Lymphocytes Abs 1.3 0.9 - 3.2 x10(3)/[facility] LABOR[facility] Monocyte % 9.5 % [facility] Monocyte Abs 0.5 0.3 - 0.9 x10(3)/[facility]OR[facility] Eos % 4.2 % [facility] Eosinophils Abs 0.2 0.0 - 0.4 x10(3)/[facility] Basophil % 0.8 % [facility] Baso Absolute 0.0 0.0 - 0.1 x10(3)/[facility]OR[facility] Immature Gran % 0.20 % [facility] Comment: Immature granulocytes(IG's)percentage and absolute count will include metamyelocytes, myelocytes, and promyelocytes. Blood smears from CBCs yielding IG's will be scanned manually for concordance. If this scan disagrees with the automated IG or if promyelocytes are noted, a manual differential will be performed. Immature Gran Absolute 0.01 0.00 - 0.04 x10(3)/mcL [facility] Blood specimen (specimen) 06/04/2017 5:02 AM EST 06/04/2017 5:20 AM EST Narrative Resulting Agency Comment Spec In Lab Washington Deluca MD HEMATOLOGY ORDERAB LES [facility] [place] [address] * (ABNORMAL) Hemogram (06/04/2017 5:02 AM EST) White Blood Cell 5.3 4.0 - 9.5 x10(3)/mc L [facility] Red Blood Cell 3.98(L) 4.58 - 5.54 x10(6)/mc L [facility] Hemoglobin 12.8(L) 13.7 - 16.5 gm/dL [facility] Hematocrit 36.8(L) 40.5 - 48.5 % [facility] Mean Cell Volume 92.5 82.9 - 93.1 fL [facility] Mean Cell Hemoglobin 32.2(H) 27.5 - 32.1 pg [facility] Mean Cell Hemoglobin Concentration 34.8 32.0 - 35.7 gm/dL [facility] Platelet 232 145 - 357 x10(3)/mc L [facility] RDW Standard Deviation 44.6 36.0 - 45.0 fL [facility] RDW coefficient of variation 13.0 11.4 - 13.8 % [facility] Mean Platelet Volume 9.8 7.6 - 12.9 fL [facility] NRBC% auto 0.0 % [facility] NRBC Absolute 0.000 0.000 - 0.000 x10(3)/mc L [facility] Blood specimen (specimen) 06/04/2017 5:02 AM EST 06/04/2017 5:20 AM EST Narrative Resulting Agency Comment Spec In Lab Washington Deluca MD HEMATOLOGY ORDERAB LES [facility] [place] [address] * (ABNORMAL) Basic Metabolic Panel (non-fasting) (06/04/2017 5:02 AM EST) Glucose 96 65 - 199 mg/dL [facility] Comment:Diabetes: >=200 mg/d L plus symptoms Blood Urea Nitrogen 12 10 - 20 mg/dL [facility] Creatinine 1.03 0.80 - 1.50 mg/dL [facility] Sodium 140 135 - 145 mmol/L [facility] Potassium 3.9 3.5 - 5.0 mmol/L [facility] Comment: Please note: ??Patients with WBC >100,000 may have falsely elevated Potassium levels. ??For accurate Potassium quantification in these patients send serum separator tube (gold top) for subsequent determinations. ??Contact the Clinical Chemistry Laboratory if there are any questions. Chloride 107 98 - 107 mmol/L [facility] Carbon Dioxide 21(L) 22 - 31 mmol/L [facility] Anion Gap 12 5 - 15 mmol/L [facility] Calcium 8.2(L) 8.5 - 10.5 mg/dL [facility] Comment:result rechecked-RR Est Glomerular Filtration Rate >60 >=60 [facility] Comment: The reported eGFR should be multiplied by 1.2 for patients. The MDRD is not an appropriate measure of renal function for patients with body mass extremes or in patients with acute kidney failure. http://[employer]/DHnkdep http://[employer]/DHMCnkf Blood specimen (specimen) 06/04/2017 5:02 AM EST 06/04/2017 5:20 AM EST Narrative Resulting Agency Comment Spec In Lab Washington Deluca MD CHEMISTRY ORDERABL ES [facility] [place] [address] * CT Head wo Contrast (Generic) (06/03/2017 [...] LABORATORY Neutrophil Absolute 6.10 1.70 - 6.10 x10(3)/[facility] LABORATORY Lymph % 18.4 % [facility] Lymphocytes Abs 1.6 0.9 - 3.2 x10(3)/[facility]OR[facility] Monocyte % 9.7 % [facility] Monocyte Abs 0.8 0.3 - 0.9 x10(3)/[facility]OR[facility] Eos % 0.3 % [facility] Eosinophils Abs 0.0 0.0 - 0.4 x10(3)/[facility]OR[facility] Basophil % 0.5 % [facility] Baso Absolute 0.0 0.0 - 0.1 x10(3)/[facility]OR[facility] Immature Gran % 0.20 % [facility] Comment: Immature granulocytes(IG's)percentage and absolute count will include metamyelocytes, myelocytes, and promyelocytes. Blood smears from CBCs yielding IG's will be scanned manually for concordance. If this scan disagrees with the automated IG or if promyelocytes are noted, a manual differential will be performed. Immature Gran Absolute 0.02 0.00 - 0.04 x10(3)/[facility] Blood specimen (specimen) 06/03/2017 2:05 AM EST 06/03/2017 2:09 AM EST Narrative Resulting Agency Comment Spec In Lab Washington Deluca MD HEMATOLOGY ORDERAB LES Performing Organization Address City/[facility]/ZIP Co de Phone Number [facility] [place] [address] * (ABNORMAL) Hemogram (06/03/2017 2:05 AM EST) White Blood Cell 8.6 4.0 - 9.5 x10(3)/mc L [facility] Red Blood Cell 4.08(L) 4.58 - 5.54 x10(6)/mc L [facility] Hemoglobin 12.8(L) 13.7 - 16.5 gm/dL [facility] Hematocrit 37.8(L) 40.5 - 48.5 % [facility] Mean Cell Volume 92.6 82.9 - 93.1 fL [facility] Mean Cell Hemoglobin 31.4 27.5 - 32.1 pg [facility] Mean Cell Hemoglobin Concentration 33.9 32.0 - 35.7 gm/dL [facility] Platelet 260 145 - 357 x10(3)/mc L [facility] RDW Standard Deviation 44.0 36.0 - 45.0 [facility] RDW coefficient of variation 13.0 11.4 - 13.8 % [facility] Mean Platelet Volume 9.4 7.6 - 12.9 fL [facility] NRBC% auto 0.0 % [facility] NRBC Absolute 0.000 0.000 - 0.000 x10(3)/mc L [facility] Blood specimen (specimen) 06/03/2017 2:05 AM EST 06/03/2017 2:09 AM EST Narrative Resulting Agency Comment Spec In Lab Washington Deluca MD HEMATOLOGY ORDERAB LES [facility] [place] [address] * (ABNORMAL) Basic Metabolic Panel (non-fasting) (06/03/2017 2:05 AM EST) Glucose 94 65 - 199 mg/dL [facility] Comment:Diabetes: >=200 mg/d L plus symptoms Blood Urea Nitrogen 11 10 - 20 mg/dL [facility] Creatinine 0.98 0.80 - 1.50 mg/dL [facility] Sodium 142 135 - 145 mmol/L [facility] Potassium 3.2(L) 3.5 - 5.0 mmol/L [facility] Comment: Please note: ??Patients with WBC >100,000 may have falsely elevated Potassium levels. ??For accurate Potassium quantification in these patients send serum separator tube (gold top) for subsequent determinations. ??Contact the Clinical Chemistry Laboratory if there are any questions. Chloride 108(H) 98 - 107 mmol/L [facility] Carbon Dioxide 21(L) 22 - 31 mmol/L [facility] Anion Gap 13 5 - 15 mmol/L [facility] Calcium 7.2(L) 8.5 - 10.5 mg/dL [facility] Comment:result rechecked-[facility] Est Glomerular Filtration Rate >60 >=60 [facility] Comment: The reported eGFR should be multiplied by 1.2 for patients. The MDRD is not an appropriate measure of renal function for patients with body mass extremes or in patients with acute kidney failure. http://[employer]ILLAGE/DHnkdep http://[employer]/DHMCnkf Blood specimen (specimen) 06/03/2017 2:05 AM EST 06/03/2017 2:09 AM EST Narrative Resulting Agency Comment Spec In Lab Washington Deluca MD CHEMISTRY ORDERABL ES [facility] [place] [address] * Hemoglobin A1c (06/03/2017 2:05 AM EST) Hemoglobin A1c 4.6 4.3 - 5.6 % [facility] Comment: Reference Range: 4.3 - 5.6% [...] Mellitus, Diabetes Care 2013; 36: Suppl. 1, S67-74 Estimated Average Glucose See note mg/dL [facility] Comment: Estimated Average Glucose not appropriate [...] the ADA website. Dinh CHRISTIANSEN, Sanjuana J, aMggi R, et al. ??Translating the A1C assay into estimated average glucose values. ??Diabetes Care 2008:31(8):5163-3439. Blood specimen (specimen) 06/03/2017 2:05 AM EST 06/03/2017 2:09 AM EST Narrative Resulting Agency Comment Spec In Lab Washington Deluca MD CHEMISTRY ORDERABL ES [facility] [place] [address] * EEG awake, asleep, drowsy, routine (06/02/2017 8:45 PM EST) Narrative Ronan Fontanez Jr., MD - 06/02/2017 8:45 PM EST Ronan Fontanez Jr., MD ? 06/02/2017 ??8:45 PM [facility] Department of Neurology Inpatient EEG Report Name of the Patient: ??Alvin Cat Date of : ?1945 Date of Service: ?06/02/2017 Referring physician: ?Andrew De La O M.D. BRIEF HISTORY: Alvin [...] (VASOTEC) injection ??1.25 mg Intravenous Q6H PRN Prior, Andrew Richter MD ? niCARdipine 0.2 mg/mL [...] Q4H Prosper Laura MD ?? Stopped at 06/02/17 182 ? ? acyclovir (ZOVIRAX) 725 mg in sodium chloride 0.9% 264.5 mL ?? 725 mg Intravenous Q8H Prosper Laura MD 264.5 mL/hr at 06/02/17 1924 725 mg at 06/02/17 1924 ? ? vancomycin 2 g in sodium chloride 0.9% 500 mL ??2 g Intravenous Once Washington Deluca MD ? [START ON 06/03/2017] vancomycin 1.5 g in sodium chloride 0.9% 250 mL ??1.5 g Intravenous Q18H Washington Deluca MD ? METHODS: A 21 channel digitized electroencephalogram was performed in the [facility] Clinical Neurophysiology Laboratory. The 10/20 international system of electrode placement was used and bipolar and referential electrode montages were recorded. ??In addition to EEG the patient was monitored for EKG and lateral/vertical eye movements. Video was recorded during the session. The duration of the recording was 30 minutes. [employer] MOLDER'S REPORT: Performed by: SB Patient was not [...] MD, PhD Department of Neurology Personal Pager #[phone] 06/02/2017 8:37 PM Washington Deluca MD NEUROLOGY [...] (Bezet) 425 ms MUSE SYSTEM Calculated P [place] 69 degrees MUSE SYSTEM Calculated R [place] 11 degrees MUSE SYSTEM Calculated T [place] 34 degrees MUSE SYSTEM INTERPRETATION Normal sinus rhythm Possible Left atrial enlargement Borderline ECG When compared with ECG of 26-DEC-2011 06:01, Non-specific change in ST segment in Inferior leads Nonspecific T wave abnormality now evident in Inferior leads Confirmed by MD Simón, Jorge Harvey ([id number]) on 06/03/2017 9:39:43 AM MUSE SYSTEM 06/02/2017 6:13 PM EST 06/03/2017 9:39 AM EST Washington Deluca MD ECG ORDERABLES MUSE SYSTEM * Urinalysis Microscopic Exam (06/02/2017 5:56 PM EST) RBC, Urine 1 0 - 3 /HPF [facility] WBC, Urine 1 0 - 3 /HPF [facility] Squamous Epithelial Cells Raw Data, Urine <1 <=4 /HPF [facility] Urine specimen obtained via indwelling urinary catheter (specimen) 06/02/2017 5:56 PM EST 06/02/2017 6:20 PM EST Narrative Resulting Agency Comment Spec In Lab Washington Deluca MD URINE ORDERABLES [facility] [place] [address] * (ABNORMAL) Urinalysis with reflex Culture (06/02/2017 5:56 PM EST) Glucose, Urine Dipstick Negative Negative mg/dL [facility] Protein, Urine Dipstick Negative Negative mg/dL [facility] Bilirubin, Urine Dipstick Negative Negative mg/dL [facility] Comment: Clinical correlation required for positive Urine Bilirubin results as false positive may occur with some drugs and drug related products. If a false positive is suspected a serum total bilirubin should be considered if clinically indicated. Urobilinogen, Urine Dipstick Normal Normal mg/dL [facility] pH, Urn (dipstick) 7.0 5.0 - 8.0 [facility] Blood, Urine Dipstick Small(A) Negative mg/dL [facility] Ketone, Urine Dipstick 5(A) Negative mg/dL [facility] Nitrite, Urine Dipstick Negative Negative [facility] Leukocytes, Urine Dipstick Negative Negative [facility] Appearance, Urine Dipstick Clear Clear [facility] Specific [place] Urine Automated 1.026 1.002 - 1.030 [facility] Color, Urine Dipstick Yellow Yellow [facility] Reflex to Culture No [facility] Urine specimen obtained via indwelling urinary catheter (specimen) 06/02/2017 5:56 PM EST 06/02/2017 6:20 PM EST Narrative Resulting Agency Comment Spec In Lab Washington Deluca MD URINE ORDERABLES Performing Organization Address [facility] [place]/ZIP Co de Phone Number [facility] [place] [address] * ABORH Recheck Status (06/02/2017 5:51 PM EST) ABORH Type Recheck Completed [facility] Blood specimen (specimen) Venous Draw / Unknown 06/02/2017 5:51 PM EST 06/02/2017 5:51 PM EST Narrative Resulting Agency Comment Spec In Lab Prosper Laura MD BLOOD BANK LAB OR DERABLES Performing Organization Address [facility] [place]/[facility] Co de Phone Number [facility] [place] [address] * ABORh Type Manual (06/02/2017 5:51 PM EST) Expires at [id number] on: 06/05/2017 [facility] ABORH Type B Pos [facility] Blood specimen (specimen) Venous Draw / Unknown 06/02/2017 5:51 PM EST 06/02/2017 5:51 PM EST Narrative Resulting Agency Comment Spec In Lab rPosper Laura MD BLOOD BANK LAB OR DERABLES Performing Organization Address [facility] [place]/[facility] Co de Phone Number [facility] [place] [address] * Blood culture (06/02/2017 5:35 PM EST) Blood Culture No growth at 5 days. [facility] Blood specimen (specimen) STRUCTURE OF LEFT UPPER LIMB / Unknown 06/02/2017 5:35 PM EST 06/02/2017 5:59 PM EST Narrative Resulting Agency Comment Spec In Lab Washington Deluca MD MICROBIOLOGY - BLO OD ORDERABLES Performing Organization Address [facility]/ZIP Co de Phone Number [facility] [place] [address] * Blood culture (06/02/2017 5:30 PM EST) Blood Culture No growth at 5 days. [facility] Blood specimen (specimen) STRUCTURE OF RIGHT UPPER LIMB / Unknown 06/02/2017 5:30 PM EST 06/02/2017 5:58 PM EST Narrative Resulting Agency Comment Spec In Lab Washington Deluca MD MICROBIOLOGY - BLO OD ORDERABLES Performing Organization Address [facility] Co de Phone Number [facility] [place] [address] * ABORH Recheck Status (06/02/2017 4:25 PM EST) ABORH Type Recheck Completed [facility] Blood specimen (specimen) 06/02/2017 4:25 PM EST 06/02/2017 4:45 PM EST Narrative Resulting Agency Comment Spec In Lab Washington Deluca MD BLOOD BANK LAB ORD ERABLES Performing Organization Address [facility] Co de Phone Number [facility] [place] [address] * Antibody screen (06/02/2017 4:25 PM EST) Ab Screen Interp Negative [facility] Expires at 2359 on: 06/05/2017 [facility] Blood specimen (specimen) 06/02/2017 4:25 PM EST 06/02/2017 4:45 PM EST Narrative Resulting Agency Comment Spec In Lab Washington Deluca MD BLOOD BANK LAB ORD ERABLES Performing Organization Address City/[facility]/ZIP Co de Phone Number [facility] [place] [address] * Hepatic Function Panel (06/02/2017 4:25 PM EST) [facility] Protein, Total 7.2 6.1 - 8.0 gm/dL [facility] Albumin 4.3 3.2 - 5.2 gm/dL [facility] Aspartate Aminotransferase 21 0 - 39 unit/L [facility] Alanine Aminotransferase 9 0 - 55 unit/L [facility] Alkaline Phosphatase 62 40 - 120 unit/L [facility] Bilirubin, Total 0.8 0.2 - 1.3 mg/dL [facility] Bilirubin, Direct 0.2 0.0 - 0.3 mg/dL [facility] Blood specimen (specimen) 06/02/2017 4:25 PM EST 06/02/2017 4:35 PM EST Narrative Resulting Agency Comment Spec In Lab Washington Deluca MD CHEMISTRY ORDERABL ES Performing Organization Address City/State/[facility] Co de Phone Number [facility] [place] [address] * (ABNORMAL) Basic Metabolic Panel (non-fasting) (06/02/2017 4:25 PM EST) [facility] Glucose 106 65 - 199 mg/dL [facility] Comment:Diabetes: >=200 mg/d L plus symptoms Blood Urea Nitrogen 16 10 - 20 mg/dL [facility] Creatinine 1.16 0.80 - 1.50 mg/dL [facility] Sodium 141 135 - 145 mmol/L [facility] Potassium 4.2 3.5 - 5.0 mmol/L [facility] Comment: Please note: ??Patients with WBC >100,000 may have falsely elevated Potassium levels. ??For accurate Potassium quantification in these patients send serum separator tube (gold top) for subsequent determinations. ??Contact the Clinical Chemistry Laboratory if there are any questions. Chloride 100 98 - 107 mmol/L [facility] Carbon Dioxide 21(L) 22 - 31 mmol/L [facility] Anion Gap 20(H) 5 - 15 mmol/L [facility] Calcium 9.4 8.5 - 10.5 mg/dL [facility] Est Glomerular Filtration Rate >60 >=60 [facility] Comment: The reported eGFR should be multiplied by 1.2 for patients. The MDRD is not an appropriate measure of renal function for patients with body mass extremes or in patients with acute kidney failure. http://[employer]/DHnkdep http://[employer]/DHMCnkf Blood specimen (specimen) 06/02/2017 4:25 PM EST 06/02/2017 4:35 PM EST Narrative Resulting Agency Comment Spec In Lab Washington Deluca MD CHEMISTRY ORDERABL ES [facility] [place] [address] * (ABNORMAL) Differential, Automated (06/02/2017 2:35 PM EST) Neutrophil % 83.4 % [facility] Neutrophil Absolute 6.63(H) 1.70 - 6.10 x10(3)/mc L [facility] Lymph % 9.2 % [facility] Lymphocytes Abs 0.7(L) 0.9 - 3.2 x10(3)/mc L [facility] Monocyte % 5.7 % [facility] Monocyte Abs 0.4 0.3 - 0.9 x10(3)/mc L [facility] Eos % 0.8 % [facility] Eosinophils Abs 0.1 0.0 - 0.4 x10(3)/mc L [facility] Basophil % 0.6 % [facility] Baso Absolute 0.0 0.0 - 0.1 x10(3)/mc L [facility] Immature Gran % 0.30 % [facility] Comment: Immature granulocytes(IG's)percentage and absolute count will include metamyelocytes, myelocytes, and promyelocytes. Blood smears from CBCs yielding IG's will be scanned manually for concordance. If this scan disagrees with the automated IG or if promyelocytes are noted, a manual differential will be performed. Immature Gran Absolute 0.02 0.00 - 0.04 x10(3)/mc L [facility] Blood specimen (specimen) 06/02/2017 2:35 PM EST 06/02/2017 2:48 PM EST Narrative Resulting Agency Comment Spec In Lab Washington Deluca MD HEMATOLOGY ORDERAB LES [facility] [place] [address] * (ABNORMAL) Hemogram (06/02/2017 2:35 PM EST) White Blood Cell 7.9 4.0 - 9.5 x10(3)/ L [facility] Red Blood Cell 4.48(L) 4.58 - 5.54 x10(6)/mc L [facility] Hemoglobin 14.7 13.7 - 16.5 gm/dL [facility] Hematocrit 40.4(L) 40.5 - 48.5 % [facility] Mean Cell Volume 90.2 82.9 - 93.1 fL [facility] Mean Cell Hemoglobin 32.8(H) 27.5 - 32.1 pg [facility] Mean Cell Hemoglobin Concentration 36.4(H) 32.0 - 35.7 gm/dL [facility] Platelet 308 145 - 357 x10(3)/mc L [facility] RDW Standard Deviation 42.7 36.0 - 45.0 fL [facility] RDW coefficient of variation 13.0 11.4 - 13.8 % [facility] Mean Platelet Volume 10.7 7.6 - 12.9 fL [facility] NRBC% auto 0.0 % [facility] NRBC Absolute 0.000 0.000 - 0.000 x10(3)/mc L [facility] Blood specimen (specimen) 06/02/2017 2:35 PM EST 06/02/2017 2:48 PM EST Narrative Resulting Agency Comment Spec In Lab Washington Deluca MD HEMATOLOGY ORDERAB LES Performing Organization Address City/[facility]/ZIP Co de Phone Number [facility] [place] [address] * LDL Cholesterol, Direct (06/02/2017 2:35 PM EST) LDL Cholesterol, Direct 92 <=190 mg/dL [facility] Blood specimen (specimen) 06/02/2017 2:35 PM EST 06/02/2017 2:48 PM EST Narrative Resulting Agency Comment Spec In Lab Washington Deluca MD CHEMISTRY ORDERABL ES Performing Organization Address [facility] Co de Phone Number [facility] [place] [address] * HDL/Cholesterol Profile (06/02/2017 2:35 PM EST) Cholesterol, Total 170 <=239 mg/dL [facility] HDL Cholesterol 69 >=40 mg/dL [facility] Cholesterol/HDL Ratio 2.5 ratio [facility] Chol/HDL Interpretation See Note [facility] Comment: Lipid management should be guided by a patient? s ASCVD risk, goals and preferences. ACC/AHA Guidelines recommend high intensity statin if clinical ASCVD or LDL greater than or equal to 190 mg/dL. http://[employer].com/GGJ-KYY-Uttabiave Measure LDL if Total Cholesterol minus HDL Cholesterol is greater than 220 mg/dL. Adults aged 40-75 with LDL 70-189 mg/dL should have their 10 year ASCVD risk estimated with the ACC/AHA ASCVD risk jewelry estimator http://tools.acc.org/RQGST-Qrbz-Cjcirjqtl/ Statin should be discussed if risk greater [...] Lab Washington Deluca MD CHEMISTRY ORDERABL ES [facility] [place] [address] * Hepatic Function Panel (06/02/2017 2:35 PM EST) Protein, Total Not Perf 6.1 - 8.0 [facility] Comment: Unable to quantitate due to sample hemolysis. ??Sample redraw suggested. Called by: JANAE, Read back by: SAVANNAH MAHAJAN, Date/Time:06/02/17 15:41. Albumin 4.2 3.2 - 5.2 gm/dL [facility] Aspartate Aminotransferase Not Perf 0 - 39 unit/L [facility] Comment: Unable to quantitate due to sample hemolysis. ??Sample redraw suggested. Called by: JANAE, Read back by: SAVANNAH MAHAJAN, Date/Time:06/02/17 15:41. Alanine Aminotransferase Not Perf 0 - 55 [facility] Comment: Unable to quantitate due to sample hemolysis. ??Sample redraw suggested. Called by: JANAE, Read back by: SAVANNAH MAHAJAN, Date/Time:06/02/17 15:41. Alkaline Phosphatase Not Perf 40 - 120 [facility] Comment: Unable to quantitate due to sample hemolysis. ??Sample redraw suggested. Called by: JANAE, Read back by: SAVANNAH MAHAJAN, Date/Time:06/02/17 15:41. Bilirubin, Total 0.8 0.2 - 1.3 mg/dL [facility] Bilirubin, Direct Not Perf 0.0 - 0.3 mg/dL [facility] Comment: Unable to quantitate due to sample hemolysis. ??Sample redraw suggested. Called by: JANAE, Read back by: SAAVNNAH MAHAJAN, Date/Time:06/02/17 15:41. Blood specimen (specimen) 06/02/2017 2:35 PM EST 06/02/2017 2:48 PM EST Narrative Resulting Agency Comment Spec In Lab Washington Deluca MD CHEMISTRY ORDERABL ES [facility] [place] [address] * (ABNORMAL) Basic Metabolic Panel (non-fasting) (06/02/2017 2:35 PM EST) Glucose 119 65 - 199 mg/dL [facility] Comment:Diabetes: >=200 mg/d L plus symptoms Blood Urea Nitrogen 15 10 - 20 mg/dL [facility] Creatinine 1.22 0.80 - 1.50 mg/dL [facility] Sodium Not Perf 135 - 145 mmol/L [facility] Comment: Unable to quantitate due to sample hemolysis. ??Sample redraw suggested. Called by: JANAE, Read back by: SAVANNAH MAHAJAN, Date/Time:06/02/17 15:41. Potassium Not Perf 3.5 - 5.0 mmol/L [facility] Comment: Unable to quantitate due to [...] Chloride Not Perf 98 - 107 mmol/L [facility] Comment: Unable to quantitate due to sample hemolysis. ??Sample redraw suggested. Called by: JANAE, Read back by: SAVANNAH MAHAJAN, Date/Time:06/02/17 15:41. Carbon Dioxide 20(L) 22 - 31 mmol/L [facility] Anion Gap Unable to Calculate 5 - 15 mmol/L [facility] Calcium 8.7 8.5 - 10.5 mg/dL [facility] Est Glomerular Filtration Rate 59(L) >=60 [facility] Comment: The reported eGFR should be multiplied by 1.2 for patients. The MDRD is not an appropriate measure of renal function for patients with body mass extremes or in patients with acute kidney failure. http://[employer]/DHnkdep http://[employer]/DHMCnkf Blood specimen (specimen) 06/02/2017 2:35 PM EST 06/02/2017 2:48 PM EST Narrative Resulting Agency Comment Spec In Lab Washington Deluca MD CHEMISTRY ORDERABL ES [facility] [place] [id number] * CT Carotids & [place] w Contrast (06/02/2017 2:03 PM [...] 5:00 PM EST EXAMINATION: CT CAROTIDS AND [place] W CONTRAST CLINICAL HISTORY: aphasia TECHNIQUE: CTA of the carotids and [place] performed following intravenous administration of [...] MD - 06/02/2017 EXAMINATION: CT CAROTIDS AND [place] OF [place] W CONTRAST CLINICAL HISTORY: aphasia TECHNIQUE: CTA of the carotids and [place] performed following intravenous administration of [...] appropriate for better evaluation. Claribel Baron APRN [facility] CT ORDERABLES * Film Library- Storage Only DX Chest (06/02/2017 12:00 AM EST) Narrative [facility] - 06/02/2017 7:24 PM EST This exam is for storage only and is auto-finalizing. Dinh Rapp MD [facility] FILM LIBRARY ORD ERABLES Performing Organization Address [facility] Co de Phone Number [place], [place] * Film Library- Storage Only CT Head (06/01/2017 12:00 AM EST) Narrative [facility] - 06/02/2017 7:25 PM EST This exam is for storage only and is auto-finalizing. 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 Bag 06/03/2017 10:10 AM EST 2,000 mg 400 mL/hr New 06/03/2017 6:08 AM EST 2,000 mg 400 mL/hr New Bag 06/03/2017 2:50 AM EST 2,000 mg 400 [...] 30 Minutes, Indication for (Active or Suspected): 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 06/03/2017 6:12 AM EST 2 g [...] 1342, Until Fri06/02/17 at 1513, SCHUYLER CARRION: azizat override LORazepam (ATIVAN) injection 1 mg 1 [...] BP > 180/105 despite labetalol, Call The housekeeping laundry worker if SBP is lower than 140 Administer [...] level., Routine, Indication for (Active or Suspected): 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 Bag 06/03/2017 11:54 AM EST 1.5 [...] level., STAT, Indication for (Active or Suspected): 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 Bag 06/02/2017 8:46 PM EST 2 [...] P&T policy, Indication for (Active or Suspected): 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 1923 (New Bag - Provider: Susan Leonard RN)2023 (Stopped - Provider: Susan Leonard RN) 0249 [...] Medication , Indication for (Active or Suspected): 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 181 (New Bag - Provider: Susan Leonard RN)182 (Stopped - Provider: Susan Leonard RN)2316 (New Bag - Provider: Conrado Yang, ELIZABETH)2331 (Stopped - Provider: Conrado Yang RN) 0250 (New Bag - Provider: Conrado Yang, ELIZABETH)0305 (Stopped - Provider: Conrado Yang, RN)0608 (New Bag - Provider: Conrado Yang, ELIZABETH)0623 (Stopped - Provider: Joey Hussein RN)1010 (New Bag - Provider: Joey Hussein RN)1025 (Stopped - Provider: Joey Hussein RN) aspirin chewable tablet 81 mg 81 mg, Oral, DAILY, First dose on Fri06/03/17 at 1715, Until Discontinued, Routine 1747 (Given - Provider: Joey Hussein RN) 0813 (Given - Provider: Susanne Francois RN) cefTRIAXone (ROCEPHIN) 2g in dextrose 5% 50mL (CANCELED) 2 g, Intravenous, EVERY 12 HOURS, First dose on Fri06/02/17 at 1800, Until Discontinued, Administer over 30 Minutes, 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 or 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): 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.] level., STAT, Indication for (Active or Suspected): 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 2045 (New Bag - Provider: Susan Leonard RN)224 (Stopped - Provider: Conrado Yang RN) Continuous Medication Order 06/02/2017 06/03/2017 06/04/2017 sodium chloride 0.9% infusion 100 mL/hr, Intravenous, CONTINUOUS, Starting on Fri06/02/17 at 1615, Until Fri06/04/17 at 1457 1633 (New Bag - Provider: Susan Leonard RN) 1246 (New Bag - Provider: Joey Hussein RN) 0137 (New Bag - Provider: Aurora Batista, ELIZABETH) PRN Medication Order 06/02/2017 06/03/2017 06/04/2017 acetaminophen (TYLENOL) 650 mg/20.3 mL oral liquid 975 mg(Linked Group 1) 975 mg, Per G Tube, EVERY 6 HOURS PRN, Starting on Fri06/02/17 at 1552, Until Fri06/04/17 at 1457, Pain, Fever, pain or temperature greater than 100 degrees F (measured by mouth), Routine 1815 (Given - Provider: Susan Leonard RN) 1043 (See Alternative - Provider: Joey Hussein RN)2106 (See Alternative - Provider: Valerie Mesa RN) 0345 (See Alternative - Provider: Aurora Batista, ELIZABETH) acetaminophen (TYLENOL) suppository 975 mg(Linked Group 1) 975 mg, Rectal, EVERY 6 HOURS PRN, Starting on Fri06/02/17 at 1552, Until Fri06/04/17 at 1457, Pain, Fever, pain or temperature greater than 100 degrees F (measured by mouth), Maximum dose of acetaminophen is 4000 mg from all sources in 24 hours., Routine 1814 (See Alternative - Provider: Susan Leonard RN) 1043 (See Alternative - Provider: Joey Hussein, ELIZABETH)2105 (See Alternative - Provider: Valerie Mesa, ELIZABETH) 034 (See Alternative - Provider: Aurora Batista, RN) acetaminophen (TYLENOL) tablet 975 mg(Linked Group 1) 975 mg, Oral, EVERY 6 HOURS PRN, Starting on Fri06/02/17 at 1552, Until Fri06/04/17 at 1457, Pain, Fever, pain or temperature greater than 100 degrees F (measured by mouth), Maximum dose of acetaminophen is 4000 mg from all sources in 24 hours., Routine 1814 (See Alternative - Provider: Susan Leonard RN) 1043 (Given - Provider: Joey Hussein RN)2105 (Given - Provider: Valerie Mesa, ELIZABETH) 034 (Given - Provider: Aurora Batista, ELIZABETH) bisacodyl [...] CT scan, Routine 1513 (Given - Provider: Susan Leonard RN) magnesium hydroxide (MILK OF MAGNESIA) [...] BP > 180/105 despite labetalol, Call The housekeeping laundry worker if SBP is lower than 140 Administer [...] BP > 180/105 despite labetalol, Call The housekeeping laundry worker if SBP is lower than 140 Administer [...] protocols. documented in this encounter Care Teams A&P Technician Relationship Specialty Start Date End Date Diana Weaver MD [address] [place] [address] PCP - General 05/22/10 09/11/17 documented as of this encounter
--- OUTSIDE RECORDS SUMMARY | 2024-05-10 18:25 | XMS_ITS | Encounter Summary ---
Author Organization [facility] [place] [address] Care Team Providers Care Anesthesia Technician Name Role Phone Diana Weaver MD Primary Care Provider [phone] Encounter Details Date Type Department Care Team (Latest Contact Info) Description 06/02/2017 - 06/02/2017 12:29 PM EST Hospital Encounter Radiology Library at [facility] [place] [address] Discharge Disposition: Home Social History Tobacco Use [...] Office Visit Psychiatry and [place] [address] Simona Harper, PhD documented as of this encounter Procedures Procedure Name Priority Date/Time Associated Diagnosis Comments FILM LIBRARY STORAGE ONLY DX CHEST Routine 06/02/2017 12:00 AM EST Pain documented in this encounter Results * Film Library- Storage Only DX Chest (06/02/2017 12:00 AM EST) Narrative [facility] - 06/02/2017 7:24 PM EST This exam is for storage only and is auto-finalizing. Dinh Rapp MD IMG FILM LIBRARY ORD ERABLES [place], [place] documented in this encounter Visit Diagnoses Not on filedocumented in this encounter Care Teams Anesthesia Technician Relationship Specialty Start Date End Date Diana Weaver MD [address] [place] [address] PCP - General 05/22/10 09/11/17 documented as of this encounter
--- OUTSIDE RECORDS SUMMARY | 2024-05-10 18:25 | XMS_ITS | Encounter Summary ---
Author Organization [facility] Address [facility] [place] [address] Care Team Providers Care Certified Medical Transcriptionist Name Role Phone Diana Weaver MD Primary Care Provider [phone] Encounter Details Date Type Department Care Team (Late st Contact Info) Description 01/04/2016 9:00 AM EDT Office Visit Physical Therapy at [facility] [address] [place] [address] Marvin Wiseman, PT [facility] PHYSICAL MEDICINE & [place] [address] Acute pain of both shoulders Social History [...] of AROM in order maximize function Therapy Pot Puller Goals (8 weeks) Patient to... 1. improve [...] Office Visit Psychiatry [place] [address] Simona Harper, PhD documented as of this encounter Visit Diagnoses Diagnosis Acute pain of both shoulders documented in this encounter Care Teams Certified Medical Transcriptionist Relationship Specialty Start Date End Date Diana Weaver MD [address] [place] [address] PCP - General 05/22/10 09/11/17 documented as of this encounter
--- OUTSIDE RECORDS SUMMARY | 2024-05-10 18:25 | XMS_ITS | Encounter Summary ---
Author Organization [facility] Address [facility] [place] [address] Care Team Providers Care Potato Bucker Name Role Phone Diana Weaver MD Primary Care Provider [phone] Reason for Visit * Reason Onset Date Comments Injections 03/04/2017 Encounter Details Date Type Department Care Team (Late st Contact Info) Description 03/04/2017 [place] [phone] Oliver Carter MD [facility] [place] [address] Injections Social History Tobacco Use Types Packs/Day [...] Best phone # to reach patient for [phone] Patient requests appointment for injection of the [...] Office Visit Psychiatry [place] [address] Simona Harper, PhD documented as of this encounter Visit Diagnoses Not on filedocumented in this encounter Care Teams Potato Bucker Relationship Specialty Start Date End Date Diana Weaver MD [address] [place] [address] PCP - General 05/22/10 09/11/17 documented as of this encounter
--- OUTSIDE RECORDS SUMMARY | 2024-05-10 18:25 | XMS_ITS | Encounter Summary ---
Author Organization [facility] Address [facility] [place] [address] Care Team Providers Care Financial Services Associate Name Role Phone Diana Weaver MD Primary Care Provider [phone] Reason for Visit * Reason Comments Shoulder Pain bilateral shoulder p ain w/ significant loss of motion in right Encounter Details Date Type Department Care Team (Late st Contact Info) Description 03/13/2016 11:30 AM EDT Office Visit [place] [address] Oliver Carter MD [facility] [place] [address] Complete rotator cuff tear of left shoulder; [...] Office Visit Psychiatry and [place]al [place] [address] Simona Harper, PhD documented as of this encounter Visit Diagnoses Diagnosis Complete rotator cuff tear of left shoulder Complete rupture of rotator cuff Disorder of rotator cuff, unspecified laterality documented in this encounter Care Teams Financial Services Associate Relationship Specialty Start Date End Date Diana Weaver MD [address] [place] [address] PCP - General 05/22/10 09/11/17 documented as of this encounter
--- OUTSIDE RECORDS SUMMARY | 2024-05-10 18:25 | XMS_ITS | Encounter Summary ---
Author Organization [facility] [place] [address] Care Team Providers Care Certified Nurse Name Role Phone Diana Weaver MD Primary Care Provider [phone] Reason for Visit * Consultation (Routine) - Closed Specialty Diagnoses / Procedures Referred By Ronald parada Referred To Contact Physical Therapy Diagnoses Right shoulder pain Shayy Diallo APRN [address] [place] [address] Patel Arevalo, PT [facility] PHYSICAL MEDICINE & [place] [address] Referral ID Status Reason Start Date Expiration Date V isits Requested Visits Authorized [id number] Closed Consult, Test & Treat [facility] PCP Updated and/or Approved 11/02/2015 11/01/2016 1 1 Encounter Details Date Type Department Care Team (Late st Contact Info) Description 11/24/2015 9:30 AM EDT Office Visit Physical Therapy at [facility] [address] [place] [address] Marvin Wiseman, PT [facility] PHYSICAL MEDICINE & [place] [address] Acute pain of both shoulders Social History [...] of AROM in order maximize function Therapy Hydro Plant Operator Goals (8 weeks) Patient to... 1. [...] Office Visit Psychiatry [place] [address] Simona Harper, PhD documented as of this encounter Visit Diagnoses Diagnosis Acute pain of both shoulders documented in this encounter Care Teams Certified Nurse Relationship Specialty Start Date End Date Diana Weaver MD [address] [place] [address] PCP - General 05/22/10 09/11/17 documented as of this encounter
--- OUTSIDE RECORDS SUMMARY | 2024-05-10 18:25 | XMS_ITS | Encounter Summary ---
Author Organization [facility] Address [facility] [place] [address] Care Team Providers Care Utility Mechanic Name Role Phone Diana Weaver MD Primary Care Provider [phone] Encounter Details Date Type Department Care Team (Late st Contact Info) Description 12/11/2015 1:30 PM EDT Office Visit Physical Therapy at [facility] [address] [place] [address] Marvin Wiseman, PT [facility] PHYSICAL MEDICINE & [place] [address] Acute pain of both shoulders Social History [...] of AROM in order maximize function Therapy Residential Goals (8 weeks) Patient to... 1. improve [...] Office Visit Psychiatry [place] [address] Simona Harper, PhD documented as of this encounter Visit Diagnoses Diagnosis Acute pain of both shoulders documented in this encounter Care Teams Utility Mechanic Relationship Specialty Start Date End Date Diana Weaver MD [address] [place] [address] PCP - General 05/22/10 09/11/17 documented as of this encounter
--- OUTSIDE RECORDS SUMMARY | 2024-05-10 18:25 | XMS_ITS | Encounter Summary ---
Author Organization [facility] Address [facility] [place] [address] Care Team Providers Care Customer Insight Analyst Name Role Phone Diana Weaver MD Primary Care Provider [phone] Encounter Details Date Type Department Care Team (Late st Contact Info) Description 02/05/2016 9:30 AM EDT Office Visit Physical Therapy at [facility] [address] [place] [address] Marvin Wiseman, PT [facility] PHYSICAL MEDICINE & [place] [address] Acute pain of both shoulders Social History [...] with contract relax ?? Abduction with inferior Lilibeth/asus: 52/53 vs 52 = same A: [...] of AROM in order maximize function Therapy Mcfp Goals (8 weeks) Patient to... 1. improve [...] 8?? 9?? 10?? 11/23?? 12/10?? 12/18?? 12/25?? 7?? 01/10?? 01/17?? 8/? 7? documented in this encounter Plan of Treatment Upcoming Encounters Date Type Department Care Team (Late st Contact Info) Description 05/11/2024 9:00 AM EST Office Visit Psychiatry [place] [address] Simona Harper, PhD documented as of this encounter Visit Diagnoses Diagnosis Acute pain of both shoulders documented in this encounter Care Teams Customer Insight Analyst Relationship Specialty Start Date End Date Diana Weaver MD [address] [place] [address] PCP - General 05/22/10 09/11/17 documented as of this encounter
--- OUTSIDE RECORDS SUMMARY | 2024-05-10 18:25 | XMS_ITS | Encounter Summary ---
Author [facility] [place] [address] Care Team Providers Care Painter Spring Name Role Phone Diana Weaver MD Primary Care Provider Encounter Details Date Type Department Care Team (Late st Contact Info) Description 06/02/2017 [place] [address] Washington Deluca MD [facility] [place] [address] Social History Tobacco Use Types Packs/Day Years [...] 06/02/2017 11:[address] Goncalves from [facility] requested transfer for this 71-year-old who developed [...] transported by air to the ICU. CCS vector control specialist. documented in this encounter Plan of Treatment Upcoming Encounters Date Type Department Care Team (Late st Contact Info) Description 05/11/2024 9:00 AM EST Office Visit Psychiatry [place] [address] Simona Harper, PhD documented as of this encounter Visit Diagnoses Not on filedocumented in this encounter Care Teams Painter Spring Relationship Specialty Start Date End Date Diana Weaver MD [address] [place] [address] PCP - General 05/22/10 09/11/17 documented as of this encounter
--- OUTSIDE RECORDS SUMMARY | 2024-05-10 18:25 | XMS_ITS | Encounter Summary ---
Author Organization [facility] Address [facility] [place] [address] Care Team Providers Care Aircraft Delivery Checker Name Role Phone Diana Weaver MD Primary Care Provider [phone] Encounter Details Date Type Department Care Team (Late st Contact Info) Description 01/11/2016 9:15 AM EDT Office Visit Physical Therapy at [facility] [address] [place] [address] Marvin Wiseman, PT [facility] PHYSICAL MEDICINE & [place] [address] Acute pain of both shoulders Social History [...] Office Visit Psychiatry [place] [address] Simona Harper, PhD documented as of this encounter Visit Diagnoses Diagnosis Acute pain of both shoulders documented in this encounter Care Teams Aircraft Delivery Checker Relationship Specialty Start Date End Date Diana Weaver MD [address] [place] [address] PCP - General 05/22/10 09/11/17 documented as of this encounter
--- OUTSIDE RECORDS SUMMARY | 2024-05-10 18:26 | XMS_ITS | Encounter Summary ---
Author Organization [place] [address] Care Team Providers Care Rigging Up Worker Name Role Phone Diana Weaver MD Primary Care Provider [phone] Reason for Visit * Reason Onset Date Comments Reminder Appointment 05/29/2015 Encounter Details Date Type Department Care Team (Late st Contact Info) Description 05/29/2015 Telephone [place] [address] Ed Post MD [facility] DR ORTHOPA[place] [address] Reminder Appointment Social History Tobacco Use Types [...] Office Visit Psychiatry and [place] [address] Simona Harper, PhD documented as of this encounter Visit Diagnoses Not on filedocumented in this encounter Care Teams Rigging Up Worker Relationship Specialty Start Date End Date Diana Weaver MD [address] [place] [address] PCP - General 05/22/10 09/11/17 documented as of this encounter
--- OUTSIDE RECORDS SUMMARY | 2024-05-10 18:26 | XMS_ITS | Encounter Summary ---
Author Organization [facility] Address [facility] [place] [address] Care Team Providers Care Gas Technician Name Role Phone Diana Weaver MD Primary Care Provider [phone] Reason for Visit * Reason Comments Aftercare Of Tjr s/p b/l tka dos 05/08 Encounter Details Date Type Department Care Team (Late st Contact Info) Description 04/22/2013 10:10 AM EDT Office [place] [address] Ed Post MD [facility] [place] [address] S/P BILATERAL TKR (total knee replacement) using [...] NAME: Alvin Cat AGE: 67 y.o. 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
--- OUTSIDE RECORDS SUMMARY | 2024-05-10 18:26 | XMS_ITS | Encounter Summary ---
[place] [address] Care Team Providers Care Receiving Inspector Name Role Phone Diana Weaver MD Primary Care Provider [phone] Reason for Visit * Reason Comments Follow-up Encounter Details Date Type Department Care Team (Latest Contact Info) Description 09/01/2013 3:00 PM EST Office Visit [place] [address] Renzo Velasquez MD [address] [place] [address] [place] [address] Postoperative hernia (Primary Dx) Discharge Disposition: Home [...] Office Visit Psychiatry and [place] [address] Simona Harper, PhD documented as of this encounter Visit Diagnoses Diagnosis Postoperative hernia- Primary Incisional hernia without mention of obstruction or gangrene documented in this encounter Care Teams Receiving Inspector Relationship Specialty Start Date End Date Diana Weaver MD [address] [place] [address] PCP - General 05/22/10 09/11/17 documented as of this encounter
--- OUTSIDE RECORDS SUMMARY | 2024-05-10 18:26 | XMS_ITS | Encounter Summary ---
Author Organization [facility] Address [facility] [place] [address] Care Team Providers Care Manager Market Development Name Role Phone Diana Weaver MD Primary Care Provider [phone] Encounter Details Date Type Department Care Team (Late st Contact Info) Description 03/30/2013 1:16 PM EDT - 03/30/2013 11:59 PM EDT Hospital Encounter XRay at [address] [place] [address] Pain Social History Tobacco Use Types Packs/Day [...] Office Visit Psychiatry [place] [address] Simona Harper, PhD documented as [...] humeral joint space is relatively maintained. Right: ??Jrxrrjby-ro-ydqngg right AC joint arthropathy. ??The right acromion [...] glenoidhumeral joint space is relatively maintained. Right: Lhmzmwty-jm-yutpru right AC joint arthropathy. The right acromionhas [...] pain documented in this encounter Care Teams Manager Market Development Relationship Specialty Start Date End Date Diana Weaver MD [address] [place] [address] PCP - General 05/22/10 09/11/17 documented as of this encounter
--- OUTSIDE RECORDS SUMMARY | 2024-05-10 18:26 | XMS_ITS | Encounter Summary ---
Author Organization Formerly [facility] [place] [address] Care Team Providers Care Jewel Hole Rough Opener Name Role Phone Diana Weaver MD Primary Care Provider [phone] Encounter Details Date Type Department Care Team (Late st Contact Info) Description 02/18/2014 Orders Only [place] [phone] Florentino Gregorio MD [facility] [place] [address] Bilateral hand pain (Primary Dx) Social History [...] Visit Psychiatry and [place] [address] Simona Harper, PhD documented as of this [...] limb documented in this encounter Care Teams Jewel Hole Rough Opener Relationship Specialty Start Date End Date Diana Weaver MD [address] [place] [address] PCP - General 05/22/10 09/11/17 documented as of this encounter
--- OUTSIDE RECORDS SUMMARY | 2024-05-10 18:26 | XMS_ITS | Encounter Summary ---
Author Organization [facility] [place] [address] Care Team Providers Care Research Mechanic Name Role Phone Diana Weaver MD Primary Care Provider [phone] Reason for Visit * Reason Onset Date Comments Results 01/12/2012 Encounter Details Date Type Department Care Team (Late st Contact Info) Description 01/12/2012 Telephone Cardiology at [address] [address] Kurt Hernández MD [facility] [place] [address] Results Social History Tobacco Use Types Packs/Day [...] Office Visit Psychiatry and [place] [address] Simona Harper, PhD documented as of this encounter Visit Diagnoses Not on filedocumented in this encounter Care Teams Research Mechanic Relationship Specialty Start Date End Date Diana Weaver MD [address] [place] [address] PCP - General 05/22/10 09/11/17 documented as of this encounter
--- OUTSIDE RECORDS SUMMARY | 2024-05-10 18:26 | XMS_ITS | Encounter Summary ---
Author Organization [facility] Address [facility] [place] [address] Care Team Providers Care Blood Bank Technologist Name Role Phone Diana Weaver MD Primary Care Provider [phone] Encounter Details Date Type Department Care Team (Latest Contact Info) Description 04/22/2013 9:45 AM EDT - 04/22/2013 11:59 PM EDT Hospital Encounter XRay at [address] [place] [address] H/O arthroplasty Social History Tobacco Use Types [...] Office Visit Psychiatry [place] [address] Simona Harper, PhD documented as of this [...] organs documented in this encounter Care Teams Blood Bank Technologist Relationship Specialty Start Date End Date Diana Weaver MD [address] [place] [address] PCP - General 05/22/10 09/11/17 documented as of this encounter
--- OUTSIDE RECORDS SUMMARY | 2024-05-10 18:26 | XMS_ITS | Encounter Summary ---
[place] [address] Care Team Providers Care Pail Bailer Name Role Phone Diana Weaver MD Primary Care Provider [phone] Encounter Details Date Type Department Care Team (Latest Contact Info) Description 08/16/2013 12:47 PM EST - 08/16/2013 11:15 PM EST Hospital Encounter [place] [address] Renzo Velasquez MD [address] [place] [address] [place] [address] Inguinal hernia recurrent bilateral Discharge Disposition: Home [...] 101.3 F. The number for questions is [phone] before 5 PM weekdays and [phone] after 5 PM and weekends. Pain Medication: No driving for 8 hours after any dose of opioid pain medication if one was prescribed for you. You may use ibuprofen (motrin, advil) in addition to this medication if your pain is not totally controlled by the opioid. Follow-up: Follow-up appointment will be scheduled with Dr. Velasquez in 3 weeks. Appointment will be mailed to you. Please call [phone](clinic number for appointments) to confirm date and [...] w/pt and S.O. Pt will call Dr Velasquez office tomorrow to let him know this ( I will email him as well) and receive followup plan. 325cc yellow urine obtained. documented in this encounter H&P Notes * Renzo Velasquez MD - 08/16/2013 1:44 PM EST The [...] PM EST * Op Note - Renzo Velasquez MD - 08/16/2013 5:29 PM EST [facility] Operative Note Patient Name: Alvin Cat : [id number] MR#: [id number] Case Date: 08/16/2013 Surgeon: Surgeon(s) and Role: * Renzo Velasquez MD - Primary * Darrel Palafox MD [...] rectus sheath was closed with 0 PDS mzyyuz-dd-fjylo suture and the skin was closed with 4-0 Monocryl subcuticular closure at all trocar sites. Steri-Strips and a dry dressing were applied. The patient tolerated the procedure well. There was approximately 10 mL of blood loss and no complications. * OR Attestation - Renzo Velasquez MD - 08/16/2013 5:28 PM EST Attestation: Case Date: 08/16/2013 I was present and I participated during the entire procedure (does not need to include opening and closing). RENZO VELASQUEZ MD 08/16/2013 * Miscellaneous - Chuy Ramirez - 08/16/2013 2:06 PM EST documented in this encounter Plan of Treatment Upcoming Encounters Date Type Department Care Team (Late st Contact Info) Description 05/11/2024 9:00 AM EST Office Visit Psychiatry [place] [address] Simona Harper, PhD documented as of this [...] 1-2 tablet, Oral, EVERY 4 HOURS PRN, Pain, Starting on Fri08/16/13 at 1725, Until Fri08/17/13 at 0116, Maximum dose of acetaminophen is 4000 mg from all sources in 24 hours. Given 08/16/2013 10:45 PM EST 2 tablets [...] Routine 1704 (Given - Provid er: Renzo Velasquez MD) fentaNYL 50mcg/mL injection (CANCELED) 25-50 mcg, Intravenous, EVERY 5 MIN PRN, Starting on Fri08/16/13 at 1722, Until Fri08/16/13 at 2314, Pain, for breakthrough pain, Hold for respiratory rate less than 10 per minute. Maximum dose: 250 mcg over one hour., PACU Recovery, Routine 180 (Given - Provid er: Matt Ron RN)1810 (Given - Provider: Matt Ron RN)181 (Given - Provider: Matt Ron RN)183 (Given - Provider: Matt Ron RN) oxyCODONE-acetaminophen (PERCOCET) 5-325 mg per tablet 1-2 tablet (CANCELED) 1-2 tablet, Oral, EVERY 4 HOURS PRN, Pain, Starting on 08/16/13 at 1725, Until Fri08/17/13 at 0116, Maximum dose of acetaminophen is 4000 mg from all sources in 24 hours. 1747 (Given - Provid er: Matt Ron RN)183 (Given - Provider: Matt Ron RN)1900 (Given - Provider: Matt Ron RN)2245 (Given - Provider: Matt Ron RN) documented in this encounter Care Teams Pail Bailer Relationship Specialty Start Date End Date Diana Weaver MD [address] [place] [address] PCP - General 05/22/10 09/11/17 documented as of this encounter
--- OUTSIDE RECORDS SUMMARY | 2024-05-10 18:26 | XMS_ITS | Encounter Summary ---
Author Organization [facility] Address [facility] [address] Care Team Providers Care Floor Layer Apprentice Name Role Phone Diana Weaver MD Primary Care Provider [phone] Reason for Visit * Reason Comments Aftercare Of Tjr Bilat TKA 05/08/10 Encounter Details Date Type Department Care Team (Late st Contact Info) Description 06/01/2015 3:00 PM EST Office Visit [place] [address] Ed Post MD [facility] [place] [address] S/P TKR (total knee replacement) using cement, [...] Office Visit Psychiatry and Behavioral [place] [address] Simona Harper, PhD documented as of this encounter Visit Diagnoses Diagnosis S/P TKR (total knee replacement) using cement, unspecified laterality documented in this encounter Care Teams Floor Layer Apprentice Relationship Specialty Start Date End Date Diana Weaver MD [address] [place] [address] PCP - General 05/22/10 09/11/17 documented as of this encounter
--- OUTSIDE RECORDS SUMMARY | 2024-05-10 18:26 | XMS_ITS | Encounter Summary ---
Author Organization [facility] Address [facility] [place] [address] Care Team Providers Care Black Leather Trimmer Name Role Phone Diana Weaver MD Primary Care Provider [phone] Reason for Visit * Reason Comments Bilateral Shoulder Pain Encounter Details Date Type Department Care Team (Late st Contact Info) Description 03/30/2013 2:15 PM EDT Office [place] [address] Oliver Carter MD 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 negative Fillmore's and speed's. Neurological/Vascular: Sensation to light and [...] Office Visit Psychiatry [place] [address] Simona Harper, PhD documented as of this encounter Visit Diagnoses Diagnosis Rotator cuff disorder bilateral (L>R)- Primary Disorders of bursae and tendons in shoulder region, unspecified documented in this encounter Care Teams Black Leather Trimmer Relationship Specialty Start Date End Date Diana Weaver MD [address] [place] [address] PCP - General 05/22/10 09/11/17 documented as of this encounter
--- OUTSIDE RECORDS SUMMARY | 2024-05-10 18:26 | XMS_ITS | Encounter Summary ---
[place] [address] Care Team Providers Care Wind Science And Planning Name Role Phone Diana Weaver MD Primary Care Provider Reason for Visit * Reason Onset Date Comments Referral 12/23/2013 Encounter Details Date Type Department Care Team (Late st Contact Info) Description 12/23/2013 Telephone [place] [address] Doreen Palafox, [facility] Referral Social History Tobacco Use Types Packs/Day [...] Notes * Telephone Encounter - Doreen Evans, [facility] - 12/23/2013 1:01 PM EDT Ask patient to verify the following: Full name: Alvin Cat : 1945 Phone number: [phone] (home) Mailing address: o [facility] [place] [address] Intake: bilat hand pain - right ring, [...] Office Visit Psychiatry [place] [address] Simona Harper, PhD documented as of this encounter Visit Diagnoses Not on filedocumented in this encounter Care Teams Wind Science And Planning Relationship Specialty Start Date End Date Diana Weaver MD [address] [place] [address] PCP - General 05/22/10 09/11/17 documented as of this encounter
--- OUTSIDE RECORDS SUMMARY | 2024-05-10 18:26 | XMS_ITS | Encounter Summary ---
[place] [address] Care Team Providers Care Tool Technician Name Role Phone Diana Weaver MD Primary Care Provider [phone] Reason for Visit * Reason Onset Date Comments Results 12/31/2011 Encounter Details Date Type Department Care Team (Late st Contact Info) Description 12/31/2011 Telephone Cardiology at [address] [phone] Ene Bellamy, RN Results Social History Tobacco [...] Office Visit Psychiatry and Behavioral [place] [address] Simona Harper, PhD documented as of this encounter Visit Diagnoses Not on filedocumented in this encounter Care Teams Tool Technician Relationship Specialty Start Date End Date Diana Weaver MD [address] [place] [address] PCP - General 05/22/10 09/11/17 documented as of this encounter
--- OUTSIDE RECORDS SUMMARY | 2024-05-10 18:26 | XMS_ITS | Encounter Summary ---
Author Organization [facility] Address [facility] [place] [address] Care Team Providers Care Computer Aided Design Designer Name Role Phone Diana Weaver MD Primary Care Provider [phone] Encounter Details Date Type Department Care Team (Late st Contact Info) Description 03/18/2013 Orders [place] [address] Oliver Carter MD [facility] [address] ORTHOPAEDIC [place] [address] Pain (Primary Dx) Social History Tobacco Use [...] Office Visit Psychiatry [place] [address] Simona Harper, PhD documented as of this encounter Visit Diagnoses Diagnosis Pain- Primary Generalized pain documented in this encounter Care Teams Computer Aided Design Designer Relationship Specialty Start Date End Date Diana Weaver MD [address] [place], [place] [address] PCP - General 05/22/10 09/11/17 documented as of this encounter
--- OUTSIDE RECORDS SUMMARY | 2024-05-10 18:26 | XMS_ITS | Encounter Summary ---
Author Organization [facility] Address [facility] [place] [address] Care Team Providers Care Tank Truck Milk Receiver Name Role Phone Diana Weaver MD Primary Care Provider [phone] Reason for Visit * Reason Comments Shortness of Breath Encounter Details Date Type Department Care Team (Late st Contact Info) Description 01/15/2012 3:30 PM EDT Office Visit Cardiology at [address] [address] Nic Tran II, MD [facility] [place] [address] Pericardial effusion (Primary Dx) Discharge Disposition: Home [...] EDT CHART NOTE: Patient Name: Alvin Cat ([id number]) Mr. Cat is seen in conjunction with [...] Office Visit Psychiatry [place] [address] Simona Harper, PhD documented as of this encounter Visit Diagnoses Diagnosis Pericardial effusion- Primary Unspecified disease of pericardium documented in this encounter Care Teams Tank Truck Milk Receiver Relationship Specialty Start Date End Date Diana Weaver MD [address] [place] [address] PCP - General 05/22/10 09/11/17 documented as of this encounter
--- OUTSIDE RECORDS SUMMARY | 2024-05-10 18:26 | XMS_ITS | Encounter Summary ---
Author Organization [facility] [place] [address] Care Team Providers Care Fruit Packer Face And Fill Name Role Phone Diana Weaver MD Primary Care Provider [phone] Encounter Details Date Type Department Care Team (Late st Contact Info) Description 08/16/2013 2:50 PM EST Anesthesia [place] [address] Iris Edmond MD [facility] [place] [address] Precious Atkinson MD [facility] [place] [address] Anesthesia Record Procedure Summary Procedure Name Responsible [...] Pulmonary Assessment: Dental Assessment: - normal exam [facility] Assessment: Patient is wearing No contact(s). IV [...] Cr 1.07, eGFR greater than 60 Plan: GAET([place] available), standard ASA monitors, adequate IV access. Anesthetic plan along with risks discussed with patient. All questions answered. Region - Other Informed Consent: Anesthetic plan and risks discussed with patient. Use of blood products discussed with patient whom consented to blood products. Plan discussed with resident. [facility]. Assessment: documented in this encounter Plan of Treatment Upcoming Encounters Date Type Department Care Team (Late st Contact Info) Description 05/11/2024 9:00 AM EST Office Visit Psychiatry [place] [address] Simona Harper, PhD documented as of this [...] mg documented in this encounter Care Teams Fruit Packer Face And Fill Relationship Specialty Start Date End Date Diana Weaver MD [address] [place] [address] PCP - General 05/22/10 09/11/17 documented as of this encounter
--- OUTSIDE RECORDS SUMMARY | 2024-05-10 18:26 | XMS_ITS | Encounter Summary ---
[place] [address] Care Team Providers Care Meter Engineer Name Role Phone Diana Weaver MD Primary Care Provider [phone] Encounter Details Date Type Department Care Team (Late st Contact Info) Description 08/16/2013 2:22 PM EST - 08/16/2013 4:50 PM EST [place] [address] Renzo Velasquez MD [address] [place] [address] [place] [address] LAPAROSCOPIC HERNIA REPAIR, INITIAL INGUINAL- MAYRA (WRVU [...] 101.3 F. The number for questions is [phone] before 5 PM weekdays and [phone] after 5 PM and weekends. Pain Medication: [...] will be mailed to you. Please call [phone](clinic number for appointments) to confirm date and [...] Velasquez MD - 08/16/2013 5:29 PM EST [facility] Operative Note Patient Name: Alvin Cat : [id number] MR#: [id number] Case Date: 08/16/2013 Surgeon: Surgeon(s) and Role: [...] rectus sheath was closed with 0 PDS unmahj-rv-fjslz suture and the skin was closed with [...] Office Visit Psychiatry [place] [address] Simona Harper, PhD documented as of this [...] mcg over one hour., PACU Recovery, Routine 1803 (Given - Provid er: Matt Ron RN)181 [...] RN) documented in this encounter Care Teams Meter Engineer Relationship Specialty Start Date End Date Diana Weaver MD [address] [place] [address] PCP - General 05/22/10 09/11/17 documented as of this encounter
--- OUTSIDE RECORDS SUMMARY | 2024-05-10 18:26 | XMS_ITS | Encounter Summary ---
Author Organization [facility] [place] [address] Care Team Providers Care Transport Tank Technician Name Role Phone Diana Weaver MD Primary Care Provider [phone] Reason for Visit * Reason Onset Date Comments Results 01/04/2012 Encounter Details Date Type Department Care Team ([facility] Contact Info) Description 01/04/2012 Telephone Cardiology at [address] [address] Kurt Hernández MD [facility] [place] [address] Results Social History Tobacco Use Types Packs/Day [...] Upcoming Encounters Date Type Department Care Team ([facility] Contact Info) Description 05/11/2024 9:00 AM EST Office Visit Psychiatry [place] [address] Simona Harper, PhD documented as of this encounter Visit Diagnoses Not on filedocumented in this encounter Care Teams Transport Tank Technician Relationship Specialty Start Date End Date Diana Weaver MD [address] [place] [address] PCP - General 05/22/10 09/11/17 documented as of this encounter
--- OUTSIDE RECORDS SUMMARY | 2024-05-10 18:26 | XMS_ITS | Encounter Summary ---
[place] [address] Care Team Providers Care Electrical Solderer Name Role Phone Diana Weaver MD Primary Care Provider [phone] Reason for Visit * Reason Comments Inguinal Hernia Encounter Details Date Type Department Care Team (Late st Contact Info) Description 07/28/2013 10:15 AM EST Office [place] [address] Renzo Velasquez MD [address] [place] [address] [place] [address] Bilateral recurrent inguinal hernia without obstruction or [...] Office Visit Psychiatry [place] [address] Simona Harper, PhD documented as of this encounter Visit Diagnoses Diagnosis Bilateral recurrent inguinal hernia without obstruction or gangrene- Primary Inguinal hernia without mention of obstruction or gangrene, recurrent bilateral documented in this encounter Care Teams Electrical Solderer Relationship Specialty Start Date End Date Diana Weaver MD [address] [place] [address] PCP - General 05/22/10 09/11/17 documented as of this encounter
--- OUTSIDE RECORDS SUMMARY | 2024-05-10 18:26 | XMS_ITS | Encounter Summary ---
Author Organization [facility] [place] [address] Care Team Providers Care Dermatology Nurse Name Role Phone Diana Weaver MD Primary Care Provider [phone] Encounter Details Date Type Department Care Team (Late st Contact Info) Description 03/18/2013 Orders [place] [address] Ed Post MD [facility] [place] [address] H/O arthroplasty (Primary Dx) Social History Tobacco [...] Office Visit Psychiatry [place] [address] Simona Harper, PhD documented as of this [...] organs documented in this encounter Care Teams Dermatology Nurse Relationship Specialty Start Date End Date Diana Weaver MD [address] [place] [address] PCP - General 05/22/10 09/11/17 documented as of this encounter
--- OUTSIDE RECORDS SUMMARY | 2024-05-10 18:26 | XMS_ITS | Encounter Summary ---
Author Organization [facility] [place] [address] Care Team Providers Care It Support Consultant Name Role Phone Diana Weaver MD Primary Care Provider Encounter Details Date Type Department Care Team (Late st Contact Info) Description 01/15/2012 12:56 PM EDT - 01/15/2012 11:59 PM EDT Hospital Encounter Non-Invasive [place] [id number] CARDIO, ECHO SIXTY MIN APPT None Nic Tran II, MD [facility] [place] [address] Pericardial effusion Discharge Disposition: Home Social History [...] Office Visit Psychiatry and [place] [address] Simona Harper, PhD documented as [...] PODHURST ALVIN L ?(Age): 1945(66) Med Rec#: ?[id number] ? Sex: ?M ? Site Loc: ?[facility] ? Ht / Wt: ??180(cm)/94(kg) Pt. Loc: ? Echo Lab ? BSA: ?2.17 Study Date: ?01/15/2012 ? Pt. Type: Outpatient Tape: ? Referring: Nic Tran Stockroom Keeper: Lara Valerio Diagnosis:CPT Code(s): ??Color Doppler (67149), ??Doppler LTD (96887), Echo LTD (82786), Indication(s): ??Pericardial effusion, R/O Rhythm: Sinus HR [...] ? Mid-Inferior ?Normal ? Mid-Inferoseptal ?Normal ? [place]-Septal ? Normal ? [place]-Anterior ? Normal ? [place]-Lateral ?Normal ? [place]-Inferior ? Normal ? [place]-Tip ?Normal ? Chambers ?Value ?Units (Range) ? [...] 01/15/2012 14:16:10 Images reviewed and interpretation verified [facility] Cardiac Ultrasound Laboratory Procedure Note Matt Melgar MD - 01/15/2012 Procedure: Transthoracic Echocardiogram Patient: LORIN East (Age): 1945(66) Med Rec#: [id number] Sex: M Site Loc: [facility] Ht / Wt: 180(cm)/94(kg) Pt. Loc: Echo Lab BSA: 2.17 Study Date: 01/15/2012 Pt. Type: Outpatient Tape: Referring: Nic Tran Stockroom Keeper: Lara Valerio Diagnosis:CPT Code(s): Color Doppler (95970), Doppler LTD (51679), Echo LTD (04297), Indication(s): Pericardial effusion, R/O Rhythm: Sinus HR [...] Normal Mid-Posterolateral Normal Mid-Inferior Normal Mid-Inferoseptal Normal [place]-Septal Normal [place]-Anterior Normal [place]-Lateral Normal [place]-Inferior Normal [place]-Tip Normal Chambers Value Units (Range) LV EF [...] 01/15/2012 14:16:10 Images reviewed and interpretation verified [facility] Cardiac Ultrasound Laboratory Nic Tran II, MD ECHO ORDERABLES documented in this encounter Visit Diagnoses Diagnosis Pericardial effusion Unspecified disease of pericardium documented in this encounter Care Teams It Support Consultant Relationship Specialty Start Date End Date Diana Weaver MD [address] [place] [address] PCP - General 05/22/10 09/11/17 documented as of this encounter
--- OUTSIDE RECORDS SUMMARY | 2024-05-10 18:26 | XMS_ITS | Encounter Summary ---
[place] [address] Care Team Providers Care Front Desk Specialist Name Role Phone Diana Weaver MD Primary Care Provider [phone] Encounter Details Date Type Department Care Team (Latest Contact Info) Description 01/02/2012 12:26 PM EDT - 01/02/2012 11:59 PM EDT Hospital Encounter Non-[place] [phone] CARDIO, ECHO SIXTY MIN APPT None Yuniel Whelan MD [facility] [place] [address] Pericardial effusion Discharge Disposition: Home Social History [...] Office Visit Psychiatry [place] [address] Simona Harper, PhD documented as of this [...] PODHURST ALVIN L ?(Age): 1945(66) Med Rec#: ?[id number] ? Sex: ?M ? Site Loc: ?[facility] ? Ht / Wt: ??180(cm)/94(kg) Pt. Loc: ? Echo Lab ? BSA: ?2.17 Study Date: ?01/02/2012 ? Pt. Type: Outpatient Tape: ? Referring: Yuniel Whelan MD Referring: RIAN CARDOZO APRN, E Rigging Worker: Lara Valerio Diagnosis:CPT Code(s): ??Color Doppler (50595), ??Echo Full (32485), Spectral Doppler (72259), Indication(s): ??Pericardial effusion, F/U Rhythm: Sinus HR [...] ? Mid-Inferior ?Normal ? Mid-Inferoseptal ?Normal ? [place]-Septal ? Normal ? [place]-Anterior ? Normal ? [place]-Lateral ?Normal ? [place]-Inferior ? Normal ? [place]-Tip ?Normal ? Chambers ?Value ?Units (Range) ? [...] report has been electronically signed by: Carl Fraire. Luis Clark MD ? 01/02/2012 16:42:52 Images reviewed and interpretation verified [facility] Cardiac Ultrasound Laboratory Procedure Note Carl Gomez MD - 01/02/2012 Procedure: Transthoracic Echocardiogram Patient: LORIN East DOB(Age): 1945(66) Med Rec#: [id number] Sex: M Site Loc: [facility] Ht / Wt: 180(cm)/94(kg) Pt. Loc: Echo Lab BSA: 2.17 Study Date: 01/02/2012 Pt. Type: Outpatient Tape: Referring: Yuniel Whelan MD Referring: RIAN CARDOZO APRN, E Rigging Worker: Lara Valerio Diagnosis:CPT Code(s): Color Doppler (57943), Echo Full (84500), Spectral Doppler (66808), Indication(s): Pericardial effusion, F/U Rhythm: Sinus HR [...] change in the inferior vena cava dimension. [facility] Two-[place] echo, spectral Doppler and color Doppler performed. Wall Motion: Segment Name Rest Base-Anteroseptal Normal Base-Anterior Normal Base-Anterolateral Normal Base-Posterolateral Normal Base-Inferior Normal Base-Inferoseptal Normal Mid-Anteroseptal Normal Mid-Anterior Normal Mid-Anterolateral Normal Mid-Posterolateral Normal Mid-Inferior Normal Mid-Inferoseptal Normal [place]-Septal Normal [place]-Anterior Normal [place]-Lateral Normal [place]-Inferior Normal [place]-Tip Normal Chambers Value Units (Range) IVSd 2D [...] 01/02/2012 16:42:52 Images reviewed and interpretation verified [facility] Cardiac Ultrasound Laboratory Yuniel S Whelan MD ECHO ORDERABLES documented in this encounter Visit Diagnoses Diagnosis Pericardial effusion Unspecified disease of pericardium documented in this encounter Care Teams Front Desk Specialist Relationship Specialty Start Date End Date Diana Weaver MD [address] [place] [address] PCP - General 05/22/10 09/11/17 documented as of this encounter
--- OUTSIDE RECORDS SUMMARY | 2024-05-10 18:26 | XMS_ITS | Encounter Summary ---
Author Organization [facility] Address [facility] [place] [address] Care Team Providers Care Tour Production Supervisor Name Role Phone Diana Weaver MD Primary Care Provider [phone] Encounter Details Date Type Department Care Team (Latest Contact Info) Description 06/01/2015 1:56 PM EST - 06/01/2015 11:59 PM EST Hospital Encounter XRay at [address] [place] [address] Ed Post MD [facility] [place] [address] Status post bilateral knee replacements Discharge Disposition: [...] Office Visit Psychiatry and [place] [address] Simona Harper, PhD documented as of this [...] replacements documented in this encounter Care Teams Tour Production Supervisor Relationship Specialty Start Date End Date Diana Weaver MD [address] [place] [address] PCP - General 05/22/10 09/11/17 documented as of this encounter
--- OUTSIDE RECORDS SUMMARY | 2024-05-10 18:26 | XMS_ITS | Encounter Summary ---
Author Organization [facility] Address [facility] [place] [address] Care Team Providers Care Biomass Facilitator Name Role Phone Diana Weaver MD Primary Care Provider [phone] Encounter Details Date Type Department Care Team (Latest Contact Info) Description 02/23/2014 11:42 AM EDT - 02/23/2014 11:59 PM EDT Hospital Encounter XRay at [address] [place] [address] Bilateral hand pain Social History Tobacco Use [...] Office Visit Psychiatry [place] [address] Simona Harper, PhD documented as of this [...] limb documented in this encounter Care Teams Biomass Facilitator Relationship Specialty Start Date End Date Diana Weaver MD [address] [place] [address] PCP - General 05/22/10 09/11/17 documented as of this encounter
--- OUTSIDE RECORDS SUMMARY | 2024-05-10 18:26 | XMS_ITS | Encounter Summary ---
Author Organization [facility] [place] [address] Care Team Providers Care Land Examiner Name Role Phone Diana Weaver MD Primary Care Provider [phone] Reason for Visit * Reason Comments Follow-up pericardial effusion Encounter Details Date Type Department Care Team (Late st Contact Info) Description 01/15/2012 2:10 PM EDT Office Visit Cardiology at [address] [address] Kurt Hernández MD [facility] [place] [address] Pericardial effusion (Primary Dx) Discharge Disposition: Home [...] EDT CHART NOTE: Patient Name: Alvin Cat (A#[id number]) Mr. 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 Transthoracic Echocardiogram Patient: ? PODHURST ALVIN L ?(Age): 1945(66) Med Rec#: ?[id number] ? Sex: ?M ? Site Loc: ?[facility] ? Ht / Wt: ??180(cm)/94(kg) Pt. Loc: ? Echo Lab ? BSA: ?2.17 Study Date: ?01/15/2012 ? Pt. Type: Outpatient Tape: ? Referring: Nic Tran Agent Licensing Clerk: Lara Valerio Diagnosis:CPT Code(s): ??Color Doppler (74874), ??Doppler LTD (31408), Echo LTD (08581), Indication(s): ??Pericardial effusion, R/O Rhythm: Sinus HR [...] ? Mid-Inferior ?Normal ? Mid-Inferoseptal ?Normal ? [place]-Septal ? Normal ? [place]-Anterior ? Normal ? [place]-Lateral ?Normal ? [place]-Inferior ? Normal ? [place]-Tip ?Normal ? Chambers ?Value ?Units (Range) ? [...] 01/15/2012 14:16:10 Images reviewed and interpretation verified [facility] Cardiac Ultrasound Laboratory Procedure Note Matt Melgar MD - 01/15/2012 Procedure: Transthoracic Echocardiogram Patient: LORIN East DOB(Age): 1945(66) Med Rec#: [id number] Sex: M Site Loc: [facility] Ht / Wt: 180(cm)/94(kg) Pt. Loc: Echo Lab BSA: 2.17 Study Date: 01/15/2012 Pt. Type: Outpatient Tape: Referring: Nic Tran Agent Licensing Clerk: Lara Valerio Diagnosis:CPT Code(s): Color Doppler (76190), Doppler LTD (26692), Echo LTD (22947), Indication(s): Pericardial effusion, R/O Rhythm: Sinus HR [...] Normal Mid-Posterolateral Normal Mid-Inferior Normal Mid-Inferoseptal Normal [place]-Septal Normal [place]-Anterior Normal [place]-Lateral Normal [place]-Inferior Normal [place]-Tip Normal Chambers Value Units (Range) LV EF [...] This report has been electronically signed by: Jose Melgar M.D. 01/15/2012 14:16:10 Images reviewed and interpretation verified [facility] Cardiac Ultrasound Laboratory Nic Tran II, MD ECHO ORDERABLES documented in this encounter Visit Diagnoses Diagnosis Pericardial effusion- Primary Unspecified disease of pericardium Pericardial effusion Unspecified disease of pericardium documented in this encounter Care Teams Land Examiner Relationship Specialty Start Date End Date Diana Weaver MD [address] [place] [address] PCP - General 05/22/10 09/11/17 documented as of this encounter
--- OUTSIDE RECORDS SUMMARY | 2024-05-10 18:26 | XMS_ITS | Encounter Summary ---
Author Organization [facility] Address [facility] [place] [address] Care Team Providers Care Mechanical Apprentice Name Role Phone Diana Weaver MD Primary Care Provider [phone] Encounter Details Date Type Department Care Team (Latest Contact Info) Description 10/27/2015 - 10/27/2015 11:59 PM EDT Hospital Encounter Radiology Library at [facility] [place] [address] Washington Deluca MD [facility] [place] [address] Pain Discharge Disposition: Home Social History Tobacco [...] Psychiatry [place] [address] Simona Harper, PhD documented as of this encounter Procedures Procedure Name Priority Date/Time Associated Diagnosis Comments FILM LIBRARY STORAGE ONLY ULTRASOUND STUDY Routine 10/27/2015 12:00 AM EDT Pain documented in this encounter Results * Film Library- Storage only Ultrasound Study (10/27/2015 12:00 AM EDT) Narrative [facility] - 01/10/2016 9:07 AM EDT This exam is for storage only and is auto-finalizing. Washington Deluca MD IMG FILM LIBRARY O RDERABLES [place], [place] documented in this encounter Visit Diagnoses Diagnosis Pain Generalized pain documented in this encounter Care Teams Mechanical Apprentice Relationship Specialty Start Date End Date Diana Weaver MD [address] [place] [address] PCP - General 05/22/10 09/11/17 documented as of this encounter
--- OUTSIDE RECORDS SUMMARY | 2024-05-10 18:26 | XMS_ITS | Encounter Summary ---
Author Organization [facility] Address [facility] [place] [address] Care Team Providers Care Accountant Tax Name Role Phone Diana Weaver MD Primary Care Provider [phone] Reason for Visit * Reason Comments Bilateral Hand Pain Encounter Details Date Type Department Care Team (Late st Contact Info) Description 02/23/2014 12:15 PM EDT Office [place] [address] Florentino Gregorio MD 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 [...] but because of his heavy work as wirer street light I would not recommend joint implant for [...] Office Visit Psychiatry [place] [address] Simona Harper, PhD documented as of this encounter Visit Diagnoses Diagnosis Osteoarthritis Osteoarthrosis, unspecified whether generalized or localized, unspecified site Dupuytren's disease Contracture of palmar fascia documented in this encounter Care Teams Accountant Tax Relationship Specialty Start Date End Date Diana Weaver MD [address] [place] [address] PCP - General 05/22/10 09/11/17 documented as of this encounter
--- OUTSIDE RECORDS SUMMARY | 2024-05-10 18:26 | XMS_ITS | Encounter Summary ---
[facility] Organization [facility] [place] [address] Care Team Providers Care Sales Agent Casualty Insurance Name Role Phone Diana Booker MD Primary Care Provider [phone] Encounter Details Date Type Department Care Team (Late st Contact Info) Description 12/25/2011 2:15 PM EDT - 12/27/2011 2:12 PM EDT Hospital Encounter Intermediate [place] [address] Pieter Crowell MD [facility] [place] [address] Solange Mei MD [facility] [place] [address] Nic Tran II, MD [facility] [place] [address] Pericardial effusion Discharge Disposition: Home Social History [...] ECHOCARDIOGRAM on January 01, 12:30 pm at [facility] Cardiology Clinic, location 4A. Please keep a log of your heart rate and blood pressure at home every day. You had high blood pressure and a rapid heart rate during this admission, and this log will help your doctors to understand the reason for this. Please be sure to follow up with Dr. Kurt Hernández at [facility] Card[facility] on January 14 at 2:10 pm, location [facility] 4A. This is important to continue the [...] Osteoarthritis 715.90AN ??? CIS - asbestos exposure 80620 ??? CIS - Bilateral knee osteoarthritis 72496 ??? CIS - Bilateral knee pain 43096 ??? BPH (benign prostatic hyperplasia) 600.90AJ ??? Erectile dysfunction 607.84D ??? CIS - rotator cuff tears 44098 ??? Condyloma 078.11E ? ? Rotator cuff [...] Office of Care Management (OCM) / Clinical Director Product Management (CRC)/ Initial Assessment Discussed patient with Provider [...] b/p for follow up appointment here at [facility]. CRC advised pt he would need to privatly Pay for this and most [employer] pharmacy do have them . Pt verbalized understanding and stated he would be able to afford this. [employer]OR [employer] REFERRAL: Notified AMY Quarles - Support/Financial/Medication Assistance; See DIRECTOR RIVER RESTORATION notes for further needs. PRIMARY CARE PHYSICIAN: DIANA BOOKER MD [address] [facility] / [facility] [address] POTENTIAL DISCHARGE NEEDS: None ID at this [...] [place] [address] HCT BF Type Pericardial fl HCT BF [...] the past2 weeks. 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 For [...] pericardial effusion, with echocardiographic evidence of tamponade. [facility] cardiology was then contacted and he was accepted in transfer to the cardiology service. 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 TREATMENT PLAN: Cardiac tamponade -to shipyard laborer for pericardiocentesis -fluid for cell count, [...] 12/28/2011 1:34 PM EDTAssociated Order(s): SCAN DOC: KILN REMOVER * Provider, Scanning - 12/27/2011 4:00 PM [...] the past2 weeks. 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 For [...] pericardial effusion, with echocardiographic evidence of tamponade. [facility] cardiology was then contacted and he was accepted in transfer to the cardiology service. On arrival to [facility] he was feeling well without complaints of [...] outpatient. A follow-up TTE was scheduled at [facility] cardiology clinic at the earliest date available, [...] to be obtained on January 01 at [facility] cardiology clinic Discharge Conditions/Prognosis: Good Discharge to: [...] follow up with Dr. Kurt Hernández at [facility] Card[facility] on January 14 at 2:10 pm, location [facility] 4A. This is important to continue the work-up for the cause of your tamponade. You should also follow up with your primary care doctor, Dr. DIANA BOOKER, on January 01, at12:50 pm. General Instructions None Future Appointments and Orders Future Appointments: Provider: Department: Dept Phone: Center: 01/15/2012 2:10 PM Krut Hernández MD [facility] Cardiology [phone] [facility] Joint Appt Nurse Cardiology, RN [facility] [phone] [facility] Future Orders Please Complete By Expires Echo Transthoracic (Complete) [ECH10 Custom] 12/30/11 12/26/12 ProcessInstructions: Scheduling Instructions: Comments: Questions: Responses: Should this service/procedure be billed to the research sponsor? Which location will this be performed? [place] Provider Contact Information: Attending: Dr. Mei Fellow: Dr. Hernández Discharge References/Attachments: Discharge References/Attachments None Signed: Donya Medrano MD, PhD Internal Medicine PGY-1 DATE: 12/27/2011 documented in this encounter Plan of Treatment Upcoming Encounters Date Type Department Care Team (Late st Contact Info) Description 05/11/2024 9:00 AM EST Office Visit Psychiatry [place] [address] Simona Harper, PhD Scheduled Orders Name Type Priority Associated Diagnoses [...] Procedure Name Priority Date/Time Associated Diagnosis Comments KILN REMOVER SCAN 12/28/2011 1:34 PM EDT MRI CARDIAC [...] 12/26/19 12 6:15 AM EDT CARDIAC ENZYMES (MC/CGP) Routine 12/26/2011 6:15 AM EDT PROTHROMBIN TIME [...] CULTURE AUTOMATED Routine 12/25/2011 8:27 PM EDT NON-AIRCRAFT STRUCTURAL DESIGN ENGINEER FINAL REPORT Routine 12/25/2011 7:06 PM EDT [...] (Complete) (01/02/2012 4:31 PM EDT) EF 60 [employer] SYSTEM Anatomical Region Laterality Modality Other 01/02/2012 Narrative 01/02/2012 4:43 PM EDT Procedure: ? Transthoracic Echocardiogram Patient: ? PODHURST ALVIN L ?(Age): 1945(66) Med Rec#: ?[id number] ? Sex: ?M ? Site Loc: ?[facility] ? Ht / Wt: ??180(cm)/94(kg) Pt. Loc: ? Echo Lab ? BSA: ?2.17 Study Date: ?01/02/2012 ? Pt. Type: Outpatient Tape: ? Referring: Solange Mei MD Referring: RIAN CARDOZO APRN, E Grapple Operator: Lara Valerio Diagnosis:CPT Code(s): ??Color Doppler (05411), ??Echo Full (95320), Spectral Doppler (50814), Indication(s): ??Pericardial effusion, F/U Rhythm: Sinus HR [...] ? Mid-Inferior ?Normal ? Mid-Inferoseptal ?Normal ? [place]-Septal ? Normal ? [place]-Anterior ? Normal ? [place]-Lateral ?Normal ? [place]-Inferior ? Normal ? [place]-Tip ?Normal ? Chambers ?Value ?Units (Range) ? [...] 01/02/2012 16:42:52 Images reviewed and interpretation verified [facility] Cardiac Ultrasound Laboratory Procedure Note Carl Gomez MD - 01/02/2012 Procedure: Transthoracic Echocardiogram Patient: LORIN East (Age): 1945(66) Med Rec#: [id number] Sex: M Site Loc: [facility] Ht / Wt: 180(cm)/94(kg) Pt. Loc: Echo Lab BSA: 2.17 Study Date: 01/02/2012 Pt. Type: Outpatient Tape: Referring: Solange Mei MD Referring: RIAN CARDOZO APRN, E Grapple Operator: Lara Valerio Diagnosis:CPT Code(s): Color Doppler (89990), Echo Full (44483), Spectral Doppler (96607), Indication(s): Pericardial effusion, F/U Rhythm: Sinus HR [...] change in the inferior vena cava dimension. [facility] Two-dimensional echo, spectral Doppler and color Doppler performed. Wall Motion: Segment Name Rest Base-Anteroseptal Normal Base-Anterior Normal Base-Anterolateral Normal Base-Posterolateral Normal Base-Inferior Normal Base-Inferoseptal Normal Mid-Anteroseptal Normal Mid-Anterior Normal Mid-Anterolateral Normal Mid-Posterolateral Normal Mid-Inferior Normal Mid-Inferoseptal Normal [place]-Septal Normal [place]-Anterior Normal [place]-Lateral Normal [place]-Inferior Normal [place]-Tip Normal Chambers Value Units (Range) IVSd 2D [...] 01/02/2012 16:42:52 Images reviewed and interpretation verified [facility] Cardiac Ultrasound Laboratory Solange Mei MD ECHO ORDERABLES * SCAN DOC: KILN REMOVER (12/28/2011 1:34 PM EDT) Anatomical Region Laterality [...] AM EDT 12/27/2011 5:59 AM EDT Solange S Hamida HILL HEMATOLOGY ORDERABLE S CERNER MILLENNIUM * CBC [...] MD HEMATOLOGY ORDERABLE S Performing Organization Address [facility] de Phone Number [facility] NELIAIUM * Phosphorus (12/27/2011 5:36 AM EDT) Phosphorus 3.7 2.5 - 4.5 mg/dL [facility] M[facility] Blood specimen (specimen) 12/27/2011 5:36 AM EDT 12/27/2011 5:59 AM EDT Narrative Resulting Agency Comment Spec In Lab Solange Mei MD CHEMISTRY ORDERABLES Performing Organization Address [facility] Phone Number [facility]ENTER[facility] * Magnesium (12/27/2011 5:36 AM EDT) Magnesium 0.86 0.69 - 1.07 mmol/L [facility] Blood specimen (specimen) 12/27/2011 5:36 AM EDT 12/27/2011 5:59 AM EDT Narrative Resulting Agency Comment Spec In Lab Solange Mei MD CHEMISTRY ORDERABLES Performing Organization Address [facility] de Phone Number [facility] * Basic Metabolic Panel (non-fasting) (12/27/2011 5:36 AM EDT) Glucose 105 60 - 199 mg/dL [facility] Comment:Diabetes: >=200 mg/d L plus symptoms Blood Urea Nitrogen 13 10 - 20 mg/dL [facility] Creatinine 1.07 0.80 - 1.50 mg/dL [facility] MILLENNIUM Comment: Please note that the pediatric reference intervals supplied above were not validated at [facility]. Results from pediatric patients should be interpreted in conjunction to the patient's age, height and muscle mass. Sodium 138 135 - 145 mmol/L [facility] Potassium 4.0 3.5 - 5.0 mmol/L [facility] Comment: Please note: ??Patients with WBC >100,000 [...] Mei MD CHEMISTRY ORDERABLES Performing Organization Address [facility] Co de Phone Number [facility] * QuantiFERON-TB Gold (12/27/2011 5:36 AM EDT) Quantiferon-TB Gold Negative Negative [facility] Comment: M. tuberculosis (TB) infection NOT likely [...] IT assay will be performed in the [facility] Reference Lab. Please call , press 4; with questions. Blood specimen (specimen) 12/27/2011 5:36 AM EDT 12/30/2011 8:00 AM EDT Narrative Resulting Agency Comment Spec In Lab Solange Mei MD CHEMISTRY ORDERABLES Performing Organization Address [facility]/ZIP Co de Phone Number EDUARDO PICKENSCyber [employer]ifts * CT CHEST, ABDOMEN, & PELVIS WITH [...] PODHURST ALVIN L ?(Age): 1945(66) Med Rec#: ?[id number] ? Sex: ?M ? Site Loc: ?[facility] ? Ht / Wt: ??180(cm)/93(kg) Pt. Loc: ? Adult Floor ?BSA: ?2.13 Study Date: ?12/26/2011 ? Pt. Type: Inpatient Tape: ? Referring: Solange Mei MD Referring: MARLO WORKMAN E Grapple Operator: Devaughn Ahuja MS, [facility] Diagnosis: ??Pericardial effusion (423.9) CPT Code(s): ??Echo LTD (96810), ??Doppler LTD (22258), Indication(s): ??Pericardial effusion, F/U Rhythm: HR ?BP [...] ? Mid-Inferior ?Normal ? Mid-Inferoseptal ?Normal ? [place]-Septal ? Normal ? [place]-Anterior ? Normal ? [place]-Lateral ?Normal ? [place]-Inferior ? Normal ? [place]-Tip ?Normal ? Chambers ?Value ?Units (Range) ? LV EF Est ? 65 ? % (55 to 80) ? This report has been electronically signed by: Washington Nicole M.D. ? 12/26/2011 08:52:57 Images reviewed and interpretation verified [facility] Cardiac Ultrasound Laboratory Procedure Note Washington Nicole MD - 12/26/2011 Procedure: Transthoracic Echocardiogram Patient: LORIN East (Age): 1945(66) Med Rec#: [id number] Sex: M Site Loc: [facility] Ht / Wt: 180(cm)/93(kg) Pt. Loc: Adult Floor BSA: 2.13 Study Date: 12/26/2011 Pt. Type: Inpatient Tape: Referring: Solange Mei MD Referring: MARLO WORKMAN E Grapple Operator: Devaughn Ahuja MS, [facility] Diagnosis: Pericardial effusion (423.9) CPT Code(s): Echo LTD (92362), Doppler LTD (66670), Indication(s): Pericardial effusion, F/U Rhythm: HR BP [...] is no echo evidence of pericardial tamponade. [facility] 2-D echo/SD Wall Motion: Segment Name Rest Base-Anteroseptal Normal Base-Anterior Normal Base-Anterolateral Normal Base-Posterolateral Normal Base-Inferior Normal Base-Inferoseptal Normal Mid-Anteroseptal Normal Mid-Anterior Normal Mid-Anterolateral Normal Mid-Posterolateral Normal Mid-Inferior Normal Mid-Inferoseptal Normal [place]-Septal Normal [place]-Anterior Normal [place]-Lateral Normal [place]-Inferior Normal [place]-Tip Normal Chambers Value Units (Range) LV EF Est 65 % (55 to 80) This report has been electronically signed by: Washington Nicole M.D. 12/26/2011 08:52:57 Images reviewed and interpretation verified [facility] Cardiac Ultrasound Laboratory Solange Mei MD ECHO [...] x10(3)/mc L CERNER FLEXENNIUM Blood specimen (specimen) 12/26/2011 6:15 AM EDT 12/26/2011 6:31 AM EDT Solange Mei MD HEMATOLOGY ORDERABLE S EDUARDO PICKENSIUM * Cardiac Enzymes (12/26/2011 6:15 AM EDT) Troponin-T <0.03 <=0.03 ng/mL CERNER MILLENNIUM Comment: 0.03 ng/mL: Represents the 99th percentile upper reference limit for normals. >0.03 ng/mL: Elevated cardiac troponin T level indicative of myocardial damage. Diagnosis of acute, evolving or recent OK requires a typical rise and gradual fall [...] consensus document of the Joint Society of Cardiology/[place] College of Cardiology Committee for the redefinition of myocardial infarction. Journal of the [place] College of Cardiology 2000; 36: 959-969] Creatine Kinase 61 0 - 200 unit/L EDUARDO DIAZ Blood specimen (specimen) 12/26/2011 6:15 AM EDT 12/26/2011 6:31 AM EDT Narrative Resulting Agency Comment Spec In Lab Solange Mei MD CHEMISTRY ORDERABLES EDUARDO DIAZ * Lipid panel (fasting) (12/26/2011 6:15 AM EDT) Cholesterol, Total 126 <=199 mg/dL EDUARDO DIAZ Comment: Recommendations of the NCEP Adult Treatment Panel for the following risk cutoff thresholds for the [place] population: Desirable: <200 mg/dL Borderline High: 200-239 mg/dL High: > or = 240 mg/dL Triglyceride 92 <=149 mg/dL EDUARDO DIAZ Comment: Reference Range: Normal triglycerides: ??<150 mg/dL Borderline high: ??150-199 mg/dL High: ??200-499 mg/dL Very high: ??>bf=635 mg/dL JOB 2001; 285(19):3730-7829 HDL Cholesterol 46 >=40 mg/dL HOLLI DIAZ Comment: Reference range: ??Low HDL: ?? < 40 mg/dL ??Normal: ?40-60 mg/dL ??Desirable: > 60 mg/dL JOB 2001; 285(19):4303-6504 LDL Cholesterol 62 <=99 mg/dL HOLLI PICKENSIUM Comment: Reference range: ?? Optimal: ?<100 mg/dL ?? Near Optimal/Above Optimal: ?? 100-129 mg/dL ?? Borderline high: ?130-159 mg/dL ?? High: ? 160-189 mg/dL ?? Very high: ?>jy=076 mg/dL JOB 2001: 285(19):9137-2272 Cholesterol/HDL Ratio 2.7 ratio EDUARDO DIAZ Comment: A Cholesterol to HDL ratio below 4:1 is desirable. ??Studies suggest that increased CAD risk occurs at ratios above 5 for females and above 6 for men. ? [place] Heart Association ??(http://www.americanheart.org) ? Sharon Int Med, 1994; 121:641 ? AM J Med, 1998; 105(1A):48S Blood specimen (specimen) 12/26/2011 6:15 AM EDT 12/26/2011 6:31 AM EDT Narrative Resulting Agency Comment Spec In Lab Solange Mei MD CHEMISTRY ORDERABLES EDUARDO DIAZ * Prothrombin Time (12/26/2011 6:15 AM EDT) Prothrombin Time 14.6 11.9 - 14.7 sec EDUARDO DIAZ Comment: [facility] Transfusion Committee Guidelines: INR less than 2.0, PTT less than OR equal to 43.5 seconds, or Fibrinogen greater than or equal to 100 mg/dl indicate adequate procoagulant activity for hemostasis in patients without underlying bleeding disorders. International Normalization Ratio 1.1 0.9 - 1.1 EDUARDO DIAZ Blood specimen (specimen) 12/26/2011 6:15 AM EDT 12/26/2011 6:31 AM EDT Narrative Resulting Agency Comment Spec In Lab Solange Mei MD HEMATOLOGY ORDERABLE S Performing Organization Address [facility] Co de Phone Number CERCAMILA MCCORDENNIUM * Hepatic Function Panel (12/26/2011 6:15 AM EDT) Pathologist [facility] Protein, Total 7.6 6.4 - 8.3 gm/dL [...] Mei MD CHEMISTRY ORDERABLES Performing Organization Address [facility] de Phone Number CERCAMILA PICKENSIUM * Basic Metabolic Panel (non-fasting) (12/26/2011 6:15 AM EDT) [facility] Glucose 140 60 - 199 mg/dL CERNER MILLENNIUM Comment:Diabetes: >=200 mg/d L plus symptoms Blood Urea Nitrogen 12 10 - 20 mg/dL CERNER MILLENNIUM Creatinine 1.19 0.80 - 1.50 mg/dL CERNER MILLENNIUM Comment: Please note that the pediatric reference intervals supplied above were not validated at [facility]. Results from pediatric patients should be interpreted [...] Mei MD CHEMISTRY ORDERABLES Performing Organization Address [facility] de Phone Number EDUARDO DIAZ * CBC (with Diff) (12/26/2011 [...] MD HEMATOLOGY ORDERABLE S Performing Organization Address [facility] Co de Phone Number EDUARDO DIAZ * EKG 12 Lead (12/26/2011 6:01 AM EDT) Ventricular rate 97 BPM MUSE SYSTEM Atrial Rate 97 BPM MUSE SYSTEM P-R Interval 148 ms MUSE SYSTEM QRS Duration 100 ms MUSE SYSTEM Q-T Interval 344 ms MUSE SYSTEM QTC Calculated (Bezet) 436 ms MUSE SYSTEM Calculated P [place] 57 degrees MUSE SYSTEM Calculated R [place] -16 degrees MUSE SYSTEM Calculated T [place] 92 degrees MUSE SYSTEM INTERPRETATION Normal sinus [...] ? Ordered By: SOLANGE MEI ? MR#: [id number] ?LOC: ??[facility] ? /Sex: ??1945 (66 years), [...] testing is required, contact the Microbiology ? Shear Grinder Operator. ? PRELIMINARY REPORT ? Preliminary Report ? Verified:01/01/20 12 08:22 ? Coagulase negative Staphylococcus species isolated ? Susceptibility testing in progress ? Patient: ALVIN CAT ? MR#: [id number] ? SUSCEPTIBILITY RESULTS ? Coagulase negative Staphylococcus [...] and to Cefepime and Meropenem. ? EDUARDO PICKENSIUM Pericardial fluid specimen (specimen) 12/25/2011 8:27 PM EDT 12/25/2011 8:27 PM EDT Narrative Resulting Agency Comment Spec In Lab Solange Mei MD MICROBIOLOGY - GENER AL ORDERABLES EDUARDO DIAZ * NON-AIRCRAFT STRUCTURAL DESIGN ENGINEER FINAL REPORT (12/25/2011 7:06 PM EDT) Non-Senior Care Specialist Final Report ? [facility] ? Provider: ?? ESME, ?Pt. Name: ?? ALVIN CAT ?ROSA Payton ? Acc #: ?[id number] ?Pt. ? Col Date: ?? 12/25/2011 ? /Sex: ?1945,(66 years),Male ? Rec Date: ?? 12/25/2011 ? LOC: ?[facility] ? CYTOPATHOLOGY: ??NGYN ? ---Adequacy--- ? Specimen submitted is satisfactory. ? ---Cytopathologic Diagnosis--- ? See Comment ? 12/27/11 ?Screened by: ? LMY ? Rescreened by: ?? EJG,EJG ? 12/29/11 ?Verified by: ? Axel HILL, Toribio Fraire ?Cytopathologist ?(Electronic Signature) ? ---Comment--- ? Pericardial [...] Findings: ?(none provided) ? Gross Description: ? [facility] ? Provider: ?? ESME, ?Pt. Name: ?? ALVIN CAT ?ROSA Payton ? Acc #: ?[id number] ?Pt. ? Col Date: ?? 12/25/2011 ? /Sex: ?1945,(66 years),Male ? Rec Date: ?? 12/25/2011 ? LOC: ?[facility] ? CYTOPATHOLOGY: ??NGYN ?Received fresh, approximately 100 ml. total volume of cloudy, bloody ? fluid. ?Total Preparation: Liquid Based Prep 1; Cell Block 1. EDUARDO DIAZ 12/25/2011 7:06 PM EDT Rosa Bess MD PATHOLOGY/C YTOLOGY ORDERABLES [facility] * CYTOMEGALOVIRUS CULTURE (12/25/2011 7:03 PM EDT) Cytomegalovirus Culture ? Patient Name: ALVIN CAT ? Ordered By: HAMIDA, SOLANGE S ? MR#: [id number] ?LOC: ??[facility] ? /Sex: ??1945 (66 years), [...] developed and its performance determined by the [facility] Dept. of ? Pathology, Clinical ? Laboratory. ??It has not been cleared or approved by the U.S. Food and Drug ? Administration. ??The FDA has ? determined that such clearance or approval is not necessary. ? This test is used for clinical purposes. ? CERNER MILLENNIUM Pericardial fluid specimen (specimen) 12/25/2011 7:03 PM EDT 12/25/2011 7:04 PM EDT Narrative Resulting Agency Comment Spec In Lab Solange Mei MD MICROBIOLOGY - GENER AL ORDERABLES [facility] * AFB CULTURE (12/25/2011 7:03 PM EDT) Acid Fast Bacilli Culture ? Patient Name: ALVIN CAT ? Ordered By: SOLANGE MEI ? MR#: [id number] ?LOC: ??[facility] ? /Sex: ??1945 (66 years), [...] fast bacilli isolated at 7 weeks. ? CERNER MILLENNIUM Pericardial fluid specimen (specimen) 12/25/2011 7:03 PM EDT 12/25/2011 7:03 PM EDT Narrative Resulting Agency Comment Spec In Lab Solange Mei MD MICROBIOLOGY - GENER AL ORDERABLES [facility] * FUNGAL STAIN (12/25/2011 7:02 PM EDT) Calcofluor White Stain ? Patient Name: PODSDRSBayron, ALVIN L ? Ordered By: SOLANGE MEI ? MR#: [id number] ?LOC: ??[facility] ? /Sex: ??1945 (66 years), ? Male ? PROCEDURE: Calcofluor White Stain ?SOURCE: Pericardial Fl ? COLLECTED: 12/25/2011 19:02 ? STARTED: 12/25/2011 19:02 ? STAINS / PREPARATIONS ? Calcofluor Stain Report ? Verified: 012 23:23 ? Calcofluor White Preparation: Negative ? EDUARDO MILLENNIUM Pericardial fluid specimen (specimen) 12/25/2011 7:02 PM EDT 12/25/2011 7:02 PM EDT Narrative Resulting Agency Comment Spec In Lab Solange Mei MD MICROBIOLOGY - GENER AL ORDERABLES EDUARDO DIAZ * FUNGUS CULTURE (12/25/2011 7:02 PM EDT) Fungus Culture ? Patient Name: ALVIN CAT ? Ordered By: SOLANGE MEI ? MR#: [id number] ?LOC: ??[facility] ? /Sex: ??1945 (66 years), ? Male ? PROCEDURE: Fungus Culture ?SOURCE: Pericardial Fl ? COLLECTED: 12/25/2011 19:02 ? STARTED: 12/25/2011 19:02 ? FINAL REPORT ? Final Report ? Verified:2011 07:18 ? No Fungus isolated ? PRELIMINARY REPORT ? Preliminary Report ? Verified:2011 09:12 ? No Fungus isolated to date ? CERNER MILLENNIUM Pericardial fluid specimen (specimen) 12/25/2011 7:02 PM EDT 12/25/2011 7:02 PM EDT Narrative Resulting Agency Comment Spec In Lab Solange Mei MD MICROBIOLOGY - GENER AL ORDERABLES EDUARDO DIAZ * ANAEROBIC CULTURE (12/25/2011 7:02 PM EDT) Anaerobic Culture ? Patient Name: ALVIN CAT ? Ordered By: SOLANGE MEI ? MR#: [id number] ?LOC: ??[facility] ? /Sex: ??1945 (66 years), ? Male ? PROCEDURE: Anaerobic Culture ?SOURCE: Pericardial Fl ? COLLECTED: 12/25/2011 19:02 ? STARTED: 12/25/2011 19:02 ? FINAL REPORT ? Final Report ? Verified:2011 13:15 ? No anaerobic organisms isolated ? PRELIMINARY REPORT ? Preliminary Report ? Verified:2011 10:20 ? No anaerobic organisms isolated to date ? [facility] Pericardial fluid specimen (specimen) 12/25/2011 7:02 PM EDT 12/25/2011 7:02 PM EDT Narrative Resulting Agency Comment Spec In Lab Solange Mei MD MICROBIOLOGY - GENER AL ORDERABLES [facility] * BODY FLUID CULTURE (12/25/2011 7:02 PM EDT) Body Fluid Culture ? Patient Name: ALVIN CAT ? Ordered By: SOLANGE MEI ? MR#: [id number] ?LOC: ??[facility] ? /Sex: ??1945 (66 years), [...] ? No growth to date. ? CERNER NELIAIUM Pericardial fluid specimen (specimen) 12/25/2011 7:02 PM EDT 12/25/2011 7:02 PM EDT Narrative Resulting Agency Comment Spec In Lab Solange Mei MD MICROBIOLOGY - GENER AL ORDERABLES Performing Organization Address [facility] Co de Phone Number [facility] * BODY FLUID HOLD (12/25/2011 6:15 PM EDT) HOLD, FLD Pericardial fl CERNE R FLEXENNIUM Body fluid specimen (specimen) 12/25/2011 6:15 PM EDT 12/25/2011 7:19 PM EDT Solange Mei MD BODY FLUIDS AND STOO LS ORDERABLES Performing Organization Address [facility] Co de Phone Number [facility] * BODY FLUID MISCELLANEOUS (12/25/2011 6:15 PM EDT) Misc BF Result Not Perf CERNE R MILLENNIUM Comment:Specimen type is sotero cceptable Misc BF Type Pericardial fl CE RNER FLEXENNIUM Body fluid specimen (specimen) 12/25/2011 6:15 PM EDT 12/25/2011 7:19 PM EDT Narrative Resulting Agency Comment Spec In Lab Soalnge Mei MD BODY FLUIDS AND STOO LS ORDERABLES Performing Organization Address [facility] de Phone Number EDUARDO PICKENSIUM * MISCELLANEOUS LAB REQUEST (12/25/2011 6:15 PM EDT) Label Request received in lab. EDUARDO PICKENSIUM Specimen of unknown material (specimen) 12/25/2011 6:15 PM EDT 12/25/2011 7:14 PM EDT Solange Mei MD LAB SEND OUT ORDERAB LES Performing Organization Address [facility] de Phone Number EDUARDO DIAZ * Protein Level Body Fluid (12/25/2011 6:15 PM EDT) Protein, Fluid 4.8 gm/dL CEROH R MILLENNIUM Comment: Reference range: ??Transudates ??< [...] AND STOO LS ORDERABLES Performing Organization Address [facility] de Phone Number EDUARDO PICKENSIUM * Lactate Dehydrogenase Body Fluid (12/25/2011 6:15 PM EDT) Lactate Dehydrogenase, Fluid >2500 unit/L [facility] Comment: No reference range is available for [...] AND STOO LS ORDERABLES Performing Organization Address [facility] Co de Phone Number [facility] * Glucose Level Body Fluid (12/25/2011 6:15 PM EDT) Glucose, Fluid 61 mg/dL CEROH R MILLENNIUM Comment: No reference range is available for the specimen type submitted. ??The performance of this assay for the submitted type has not been validated and results should be interpreted accordingly and with regard to the patient's clinical status. Gluc, Fld Type Pericardial fl [facility] Body fluid specimen (specimen) 12/25/2011 6:15 PM EDT 12/25/2011 7:12 PM EDT Narrative Resulting Agency Comment Spec In Lab Solange Mei MD BODY FLUIDS AND STOO LS ORDERABLES Performing Organization Address [facility] Co de Phone Number [facility] * Cholesterol Level Body Fluid (12/25/2011 6:15 PM EDT) Cholesterol, Fluid 97 mg/dL [facility] Comment: No reference range is available for [...] AND STOO LS ORDERABLES Performing Organization Address [facility] Co de Phone Number [facility] * Albumin Level Body Fluid (12/25/2011 6:15 PM EDT) Albumin, Fluid 3.3 gm/dL [facility] MILLENNIUM Comment: In the evaluation of [...] AND STOO LS ORDERABLES Performing Organization Address [facility] Co de Phone Number CERNER [...] AND STOO LS ORDERABLES Performing Organization Address City/[facility] Co de Phone Number CERNER [...] AND STOO LS ORDERABLES Performing Organization Address [facility] Co de Phone Number [facility] * Cytopathology Non-Gynecological (12/25/2011 5:40 PM EDT) AP Specimen 12/25/2011 5:40 PM EDT 12/25/2011 5:40 PM EDT Narrative EDUARDO PICKENSIUM - 12/25/2011 5:40 PM EDT Specimen requisition ordered. ??Separate Pathology report to follow Solange Mei MD PATHOLOGY/CYTOLOGY O RDERABLES Performing Organization Address [facility] de Phone Number [facility] * RHEUMATOID FACTOR, QUANT (12/25/2011 4:07 PM EDT) Rheumatoid Factor 10 <=14 IU/mL EDUARDO PICKENSIUM Blood specimen (specimen) 12/25/2011 4:07 PM EDT 12/25/2011 6:13 PM EDT Narrative Resulting Agency Comment Spec In Lab Solange Mei MD CHEMISTRY ORDERABLES Performing Organization Address [facility] de Phone Number [facility] PICKENSI[facility] * (ABNORMAL) LACTATE DEHYDROGENASE (12/25/2011 4:07 PM EDT) Lactate Dehydrogenase 271(H) 110 - 220 unit/L EDUARDO DIAZ Blood specimen (specimen) 12/25/2011 4:07 PM EDT 12/25/2011 4:19 PM EDT Narrative Resulting Agency Comment Spec In Lab Solange Mei MD CHEMISTRY ORDERABLES Performing Organization Address [facility] Co de Phone Number [facility] * (ABNORMAL) DIFFERENTIAL, AUTOMATED (12/25/2011 4:07 PM [...] Absolute 0.01 0.00 - 0.05 x10(3)/mc L EDUARDO MCCORDENNIUM Blood specimen (specimen) 12/25/2011 4:07 PM EDT 12/25/2011 4:16 PM EDT Solange Mei MD HEMATOLOGY ORDERABLE S EDUARDO PICKENSIUM * DNA Antibody (Double-Stranded) (12/25/2011 4:07 PM EDT) DNA Ab (DS) Neg Neg EDUARDO MCCORDENNIUM Blood specimen (specimen) 12/25/2011 4:07 PM EDT 12/26/2011 8:18 AM EDT Narrative Resulting Agency Comment Spec In Lab Solange Mei MD LAB SEND OUT ORDERAB LES Performing Organization Address [facility] Phone Number [facility] * TSH (12/25/2011 4:07 PM EDT) Thyroid Stimulating Hormone 1.24 0.27 - 4.20 mcIU/mL [facility] MCCRODENNIUM Blood specimen (specimen) 12/25/2011 4:07 PM EDT 12/25/2011 4:16 PM EDT Narrative Resulting Agency Comment Spec In Lab Solange Mei MD CHEMISTRY ORDERABLES Performing Organization Address [facility] Phone Number [facility] * (ABNORMAL) APTT (12/25/2011 4:07 PM EDT) Partial Thromboplastin Time 36(H) 25 - 35 sec [facility] MILLENNIUM Comment: Recommended therapeutic PTT range for full dose unfractionated heparin is 80-114 seconds. Blood specimen (specimen) 12/25/2011 4:07 PM EDT 12/25/2011 4:16 PM EDT Narrative Resulting Agency Comment Spec In Lab Solange Mei MD HEMATOLOGY ORDERABLE S Performing Organization Address [facility] Phone Number [facility] * Prothrombin Time (12/25/2011 4:07 PM EDT) Prothrombin Time 14.3 11.9 - 14.7 sec [facility] FLEXENNI[facility] Comment: [facility] Transfusion Committee Guidelines: INR less than 2.0, PTT less than OR equal to 43.5 seconds, or Fibrinogen greater than or equal to 100 mg/dl indicate adequate procoagulant activity for hemostasis in patients without underlying bleeding disorders. International Normalization Ratio 1.1 0.9 - 1.1 CERCAIMLA MILLENNIUM Blood specimen (specimen) 12/25/2011 4:07 PM EDT 12/25/2011 4:16 PM EDT Narrative Resulting Agency Comment Spec In Lab Solange Mei MD HEMATOLOGY ORDERABLE S Performing Organization Address [facility]/ZIP Co de Phone Number CERCAMILA MCCORDENNIUM * CBC (with Diff) (12/25/2011 4:07 PM [...] MD HEMATOLOGY ORDERABLE S Performing Organization Address [facility]/ZIP Co de Phone Number EDUARDO PICKENSIUM * (ABNORMAL) BMP w/fasting Glucose (12/25/2011 4:07 [...] of Diabetes Mellitus, Position Statement from the [place] [employer]. ??Diabetes Care, Volume 33, Supplement 1, Jun 2009 Blood Urea Nitrogen 9(L) 10 - 20 mg/dL CERNER MILLENNIUM Creatinine 0.99 0.80 - 1.50 mg/dL CERNER MILLENNIUM Comment: Please note that the pediatric reference intervals supplied above were not validated at [facility]. Results from pediatric patients should be interpreted [...] Comment Spec In Lab Solangekatie Mei MD CHEMISTRY ORDERABLES [facility] * EKG 12 Lead (12/25/2011 4:01 PM EDT) Ventricular rate 91 BPM MUSE SYSTEM Atrial Rate 91 BPM MUSE SYSTEM P-R Interval 148 ms MUSE SYSTEM QRS Duration 102 ms MUSE SYSTEM Q-T Interval 352 ms MUSE SYSTEM QTC Calculated (Bezet) 432 ms MUSE SYSTEM Calculated P [place] 57 degrees MUSE SYSTEM Calculated R [place] -3 degrees MUSE SYSTEM Calculated T [place] 107 degrees MUSE SYSTEM INTERPRETATION Normal sinus rhythm Nonspecific T wave abnormality Abnormal ECG When compared with ECG of 12-APR-2010 13:20, Nonspecific T wave abnormality Present Confirmed by MD Agustina, Don ([id number]) on 12/25/2011 5:09:05 PM MUSE SYSTEM 12/25/2011 4:01 PM EDT 12/25/2011 5:09 PM EDT Solangegenaro Mei MD ECG ORDERABLES M[facility] SYSTEM * Echo Transthoracic (Complete) (12/25/2011 3:52 PM EDT) EF 65 HEART[facility] SYSTEM Anatomical Region Laterality Modality Other 12/25/2011 Narrative 12/25/2011 4:27 PM EDT Procedure: ? Transthoracic Echocardiogram Patient: ? PODHURST ALVIN L ?(Age): 1945(66) Med Rec#: ?[id number] ? Sex: ?M ? Site Loc: ?[facility] ? Ht / Wt: ??180(cm)/94(kg) Pt. Loc: ? Echo Lab ? BSA: ?2.17 Study Date: ?12/25/2011 ? Pt. Type: Inpatient Tape: ? Referring: Sammy Balbuena Referring: MARLO WORKMAN E Grapple Operator: Devaughn Ahuja MS, [facility] Grapple Operator 2: Kurt Hernández ([id number]) Diagnosis: ??Pericardial effusion (423.9) CPT Code(s): ??Echo Full (94560), ??Spectral Doppler (22770), ??Color Doppler (81923), Indication(s): ??Pericardial effusion, R/O Rhythm: HR ?BP [...] ? Mid-Inferior ?Normal ? Mid-Inferoseptal ?Normal ? [place]-Septal ? Normal ? [place]-Anterior ? Normal ? [place]-Lateral ?Normal ? [place]-Inferior ? Normal ? [place]-Tip ?Normal ? Chambers ?Value ?Units (Range) ? [...] 12/25/2011 16:27:05 Images reviewed and interpretation verified [facility] Cardiac Ultrasound Laboratory Procedure Note Devang Burns MD - 12/25/2011 Procedure: Transthoracic Echocardiogram Patient: LORIN East DOB(Age): 1945(66) Med Rec#: [id number] Sex: M Site Loc: [facility] Ht / Wt: 180(cm)/94(kg) Pt. Loc: Echo Lab BSA: 2.17 Study Date: 12/25/2011 Pt. Type: Inpatient Tape: Referring: Sammy Balbuena Referring: MARLO WORKMAN E Grapple Operator: Devaughn Ahuja MS, [facility] Grapple Operator 2: Kurt Hernández ([id number]) Diagnosis: Pericardial effusion (423.9) CPT Code(s): Echo Full (83693), Spectral Doppler (49848), Color Doppler (95160), Indication(s): Pericardial effusion, R/O Rhythm: HR BP [...] Normal Mid-Posterolateral Normal Mid-Inferior Normal Mid-Inferoseptal Normal [place]-Septal Normal [place]-Anterior Normal [place]-Lateral Normal [place]-Inferior Normal [place]-Tip Normal Chambers Value Units (Range) LV EF [...] 12/25/2011 16:27:05 Images reviewed and interpretation verified [facility] Cardiac Ultrasound Laboratory Solange Mei MD ECHO [...] CONTINUOUS, Starting on Fri12/26/11 at 1600, Until Shazia 12/26/11 at 2059 New Bag 12/26/2011 4:48 PM [...] hours., Routine 2108 (Given - Provider: Ale Marie RN) sodium chloride 0.9 % flush 5 mL (CANCELED) 5 mL, Intravenous, EVERY 12 HOURS, First dose on Fri12/25/11 at 1700, Until Discontinued 1700 (Given - Provider: Devang Barroso RN) 0500 (Given - Provider: Ale Marie, ELIZABETH)1700 (Given - Provider: Tracy Ron, ELIZABETH - Comment: continuous infusion normal saline) 0530 (Given - Provider: Crystal Carbone RN) sodium chloride 0.9% 500 mL IV bolus (COMPLETED) Intravenous, ONCE, 1 dose, On Shazia 12/26/11 at 0700 0700 (Given by Other - Provider: Wanda Rock, LEIZABETH) Continuous Medication Order 12/25/2011 12/26/2011 12/27/2011 sodium chloride 0.9% infusion () 200 mL/hr, Intravenous, CONTINUOUS, Starting on Shazia 12/26/11 at 1600, Until Shazia 12/26/11 at 2059 1648 (New Bag - Provider: Isamar Riavs RN) PRN Medication Order 12/25/2011 12/26/2011 12/27/2011 [...] DAILY PRN, PRN rectal itching, Starting on Shazia 12/26/11 at 1325, Until Fri12/27/11 at 1613 1456 (Given - Provider: Wanda Rock, ELIZABETH) iohexol (OMNIPAQUE) radiology oral prep (50 mL of oral contrast) 250 mL (COMPLETED) 250 mL, Oral, EVERY 1 HOUR PRN, Procedure Prep, Starting on Shazia 12/26/11 at 1506, 4 doses, Until Shazia 12/26/11 at 1717, Mix 1 bottle (50 mL) [...] as tolerated 1450 (Given - Provider: Wanda Rock RN)1540 (Given - Provider: Wanda Rock, RN)1645 (Given - Provider: Wanda Rock RN)1717 (Given - Provider: Tracy Ron RN) lidocaine (PF) (XYLOCAINE) 10 mg/mL (1 %) injection (CANCELED) ONCE PRN, Starting on 12/25/11 at 1743, Until Fri12/27/11 at 1613, Intra-Operative (Intra-Procedure), Routine 1743 (Given - Provider: Devang Cohen MD)1801 (Given - Provider: Devang Cohen MD) midazolam (VERSED) injection (CANCELED) ONCE PRN, Starting on Fri12/25/11 at 1801, Until Fri12/27/11 at 1613, Sleep, EP (Intra-Procedure), Routine 1801 (Given - Provider: Belkis Tineo RN) documented in this encounter Care Teams Sales Agent Casualty Insurance Relationship Specialty Start Date End Date Diana Booker MD [address] [place] [address] PCP - General 05/22/10 09/11/17 documented as of this encounter
--- OUTSIDE RECORDS SUMMARY | 2024-05-10 18:27 | XMS_ITS | Encounter Summary ---
Author Organization [facility] Address [facility] [place] [address] Care Team Providers Care Drainage Inspector Name Role Phone Diana Weaver MD Primary Care Provider [phone] Encounter Details Date Type Department Care Team (Late st Contact Info) Description 05/03/2011 Orders [place] [phone] Oliver Carter MD [facility] [place] [address] Shoulder pain Social History Tobacco Use Types [...] Office Visit Psychiatry [place] [phone] Simona Harper, PhD documented as of this encounter Visit Diagnoses Diagnosis Shoulder pain Pain in joint, shoulder region documented in this encounter Care Teams Drainage Inspector Relationship Specialty Start Date End Date Diana Weaver MD [address] [place] [address] PCP - General 05/22/10 09/11/17 documented as of this encounter
--- OUTSIDE RECORDS SUMMARY | 2024-05-10 18:27 | XMS_ITS | Clinical Summary ---
Author Organization [facility] Address [address] [place] [address] Care Team Providers Care Auxiliary Operator Name Role Phone Unknown, Provider Primary Care Provider Unava ilable Social History Tobacco Use Types Packs/Day Years Used Date Smoking Tobacco: Never Assessed Sex and Gender Information Value Date Recorded Sex Assigned at Not on file Legal Sex Male 18:33 EST Gender Identity Not on file Sexual Orientation Not on file Plan of Treatment Health Maintenance Due Date Last Done Comments Hepatitis C Screen 1945 RSV Immunization ( o r 60+ Years) (1 - 1-dose 60+ series) 2005 Fall Risk Screening 2010 COVID-19 Vaccine (2022- season) 20[address] [place] [address] MEDICARE [place] Care Teams Auxiliary Operator Relationship Specialty Start Date End Date Unknown, Provider, PCP - General 06/16/09
--- OUTSIDE RECORDS SUMMARY | 2024-05-10 18:27 | XMS_ITS | Encounter Summary ---
Author Organization [facility] [place] [address] Care Team Providers Care Towerman Name Role Phone Diana Weaver MD Primary Care Provider [phone] Encounter Details Date Type Department Care Team (Late st Contact Info) Description 08/22/2010 2:45 PM EST Follow-[place] [address] [facility] DR OR[place] [address] Discharge Disposition: Home Social History Tobacco Use [...] Office Visit Psychiatry [place] [address] Simona Harper, PhD documented as of this encounter Visit Diagnoses Not on filedocumented in this encounter Care Teams Towerman Relationship Specialty Start Date End Date Diana Weaver MD [address] [place] [address] PCP - General 05/22/10 09/11/17 documented as of this encounter
--- OUTSIDE RECORDS SUMMARY | 2024-05-10 18:27 | XMS_ITS | Referral Summary ---
Author Organization [facility] Address [address] [place] [address] Care Team Providers Care Corporate Securities Research Analyst Name Role Phone Unknown, Provider Primary Care Provider Unava ilable Social History Tobacco Use Types Packs/Day Years Used Date Smoking Tobacco: Never Assessed Sex and Gender Information Value Date Recorded Sex Assigned at Not on file Legal Sex Male 18:33 EST Gender Identity Not on file Sexual Orientation Not on file Plan of Treatment Not on file Insurance MEDICARE [place] * Guarantor: Alvin Cat Account Type Relation to Patient Date of Phone Billing Address Personal/Family Self [address] [place] [address] * Guarantor: Alvin Cat Account Type Relation to Patient Date of Phone Billing Address Personal/Family Self [address] [place] [address] * Guarantor: Alvin Cat Account Type Relation to Patient Date of Phone Billing Address Personal/Family Self [address] [place] [address] * Guarantor: Alvin Cat Account Type Relation to Patient Date of Phone Billing Address Personal/Family Self [address] [place] [address] Care Teams Corporate Securities Research Analyst Relationship Specialty Start Date End Date Unknown, Provider, PCP - General 06/16/09
--- OUTSIDE RECORDS SUMMARY | 2024-05-10 18:27 | XMS_ITS | Encounter Summary ---
Author [facility] [place] [address] Care Team Providers Care Performance Manager Name Role Phone Diana Weaver MD Primary Care Provider [phone] Reason for Visit * Reason Comments Follow Up Surgery Bilat TKA 05/08/10 Encounter Details Date Type Department Care Team (Late st Contact Info) Description 05/16/2011 9:50 AM EST Office [place] [address] Ed Post MD [facility] DR [place] [address] S/P TKR (total knee replacement) using cement [...] Patient Name: Alvin Cat : 1945 MR#: [id number] Case Date: 05/08/10 Surgeon: Joanne Post Procedure: [...] Office Visit Psychiatry and [place] [address] Simona Harper, PhD documented as of this encounter Visit Diagnoses Diagnosis 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
--- OUTSIDE RECORDS SUMMARY | 2024-05-10 18:27 | XMS_ITS | Encounter Summary ---
Author Organization [facility] [place] [address] Care Team Providers Care Peer Specialist Name Role Phone Diana Weaver MD Primary Care Provider [phone] Encounter Details Date Type Department Care Team (Late st Contact Info) Description 11/13/2010 7:31 AM EDT - 11/13/2010 11:59 PM EDT Hospital Encounter XRay at [address] [place] [phone] Social History Tobacco Use Types Packs/Day Years [...] Office Visit [facility] [place] [phone] Simona Harper, PhD documented as of this encounter Procedures Procedure Name Priority Date/Time Associated Diagnosis Comments XR KNEE AP AND LAT BILAT Routine 11/13/2010 7:46 AM EDT documented in this encounter Results * XR KNEE BILATERAL1 OR 2 VIEW (11/13/2010 7:46 AM EDT) Anatomical Region Laterality Modality Knee Bilateral Radiographic Marsha ging 11/13/2010 7:46 AM EDT Narrative 11/13/2010 4:[address] Otto. ??adarshz verify/clarify. Thx. ?? EXAMINATION: BILATERAL KNEES. DATE [...] Note Wayne Richards MD - 11/13/2010 Dr Otto. cris verify/clarify. Thx. EXAMINATION: BILATERAL KNEES. DATE OF [...] on filedocumented in this encounter Care Teams Peer Specialist Relationship Specialty Start Date End Date Diana Weaver MD [address] [place] [address] PCP - General 05/22/10 09/11/17 documented as of this encounter
--- OUTSIDE RECORDS SUMMARY | 2024-05-10 18:27 | XMS_ITS | Encounter Summary ---
[place] [address] Care Team Providers Care Ice Scraper Name Role Phone Diana Weaver MD Primary Care Provider [phone] Encounter Details Date Type Department Care Team (Late st Contact Info) Description 01/09/2011 [place] [address] Geeta Land, RN Social History Tobacco Use [...] Office Visit Psychiatry [place] [address] Simona Harper, PhD documented as of this encounter Visit Diagnoses Not on filedocumented in this encounter Care Teams Ice Scraper Relationship Specialty Start Date End Date Diana Weaver MD [address] [place] [address] PCP - General 05/22/10 09/11/17 documented as of this encounter
--- OUTSIDE RECORDS SUMMARY | 2024-05-10 18:27 | XMS_ITS | Encounter Summary ---
Author Organization Health system Address [address] [place] [address] Care Team Providers Care Insurance Underwriter Sales Name Role Phone Unknown, Provider Primary Care Provider Unava ilable Encounter Details Date Type Department Care Team (Late st Contact Info) Description 06/18/2006 Results Only [facility] [address] [place] [address] Roger Pickering MD [address] [place] [address] Social History Tobacco Use Types Packs/Day Years [...] ? ALVIN CAT ? Accession #: ? [id number] ? : ? 1945 (Age: 60) ??M [...] diameter. ??Sectioning reveals a pinpoint lumen. ??Two agricultural sales representative cross sections are submitted as (A). Received in formalin labelled [place] and vas deferens left side is a bassett-white tubular structure measuring 0.9 cm in length by 0.2 cm in diameter. Wrist Hemmer cross sections are submitted as (B). ??(Dr. Valdez)/[facility] End of Report [facility] 06/18/2006 06/19/2006 15: 23 EST us Roger Pickering MD PATHOLOGY ORDERABLES Final Result [facility] [address] [place] [address] documented in this encounter Visit Diagnoses Not on filedocumented in this encounter Care Teams Insurance Underwriter Sales Relationship Specialty Start Date End Date Unknown, Provider, PCP - General 06/16/09 documented as of this encounter
--- OUTSIDE RECORDS SUMMARY | 2024-05-10 18:27 | XMS_ITS | Encounter Summary ---
Author Organization [facility] Address [address] [place] [address] Care Team Providers Care Facilities Maintenance Manager Name Role Phone Unavailable Primary Care Provider Unavailabl e Encounter Details Date Type Department Care Team (Late st Contact Info) Description 06/14/2009 Orders Only [facility] Medicine [address] [address] Nirav Huang MD [address] [place], [place] [id number] Social History Tobacco Use Types Packs/Day Years [...] ? PODHURST, ALVIN ? Accession #: ? [id number] ? : ? 1945 (Age: 63) ??M [...] reviewed at the intradepartmental consultation conference. (Dr. Rivas)/[facility] ? Document reviewed and electronically signed by: [...] Description: ? Received in Tamika's fixative labelled [place], Alvin and hepatic ?? flexure polyps x2 are three polypoid biopsies each measuring 0.3 x 0.3 x 0.2 ?? cm. ??The specimens are submitted intact as (A). ? Received in Tamika's fixative labelled Alvin Cat and transverse ? colon polyp is a 0.5 x 0.4 x 0.3 cm polypoid biopsy. ??The specimen is submitted intact as (B). (Taylor Olson/mpl ? End of Report ? [facility] 06/14/2009 06/14/2009 17: 53 EST us Nirav Huang MD PATHOLOGY ORDERABLES Final Resul t [facility] [address] [place] [address] documented in this encounter Visit Diagnoses Not on filedocumented in this encounter
--- OUTSIDE RECORDS SUMMARY | 2024-05-10 18:27 | XMS_ITS | Encounter Summary ---
Author Organization [facility] [place] [address] Care Team Providers Care Roll Grinder Name Role Phone Diana Booker MD Primary Care Provider [phone] Encounter Details Date Type Department Care Team (Late st Contact Info) Description 12/25/2011 5:00 PM EDT - 12/25/2011 6:04 PM EDT [place] [address] Brant Vang MD [facility] [place] [address] CARDIAC CATHETERIZATION Social History Tobacco Use Types [...] ECHOCARDIOGRAM on January 01, 12:30 pm at [facility] Cardiology Clinic, location 4A. Please keep a log of your heart rate and blood pressure at home every day. You had high blood pressure and a rapid heart rate during this admission, and this log will help your doctors to understand the reason for this. Please be sure to follow up with Dr. Kurt Hernández at [facility] Cardiology Clinic on January 14 at 2:10 pm, location [facility] 4A. This is important to continue [...] Osteoarthritis 715.90AN ??? CIS - asbestos exposure 77102 ??? CIS - Bilateral knee osteoarthritis 55818 ??? CIS - Bilateral knee pain ??? [...] Office of Care Management (OCM) / Clinical Forest Fire Warden (CRC)/ Initial Assessment Discussed patient with Provider [...] b/p for follow up appointment here at [facility]. CRC advised pt he would need to privatly Pay for this and most commercial pharmacy do have them . Pt verbalized understanding and stated he would be able to afford this. [employer] REFERRAL: Notified AMY Quarles - Support/Financial/Medication Assistance; See [employer] notes for further needs. PRIMARY CARE PHYSICIAN: DIANA BOOKER MD [address] / [place] [address] POTENTIAL DISCHARGE NEEDS: None ID at this [...] [place] [address] HCT BF Type Pericardial fl HCT BF [...] the past2 weeks. 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 For [...] pericardial effusion, with echocardiographic evidence of tamponade. [facility] cardiology was then contacted and he was accepted in transfer to the cardiology service. 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 TREATMENT PLAN: Cardiac tamponade -to skilled labor for pericardiocentesis -fluid for cell count, culture, [...] morning rounds. [facility] tomorrow to evaluate to [facility] further. documented in this encounter Procedure Notes * Provider, Scanning - 12/28/2011 1:34 PM EDTAssociated Order(s): SCAN DOC: CARE CONSULTANT * Provider, Scanning - 12/27/2011 4:00 PM [...] the past2 weeks. 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 For [...] pericardial effusion, with echocardiographic evidence of tamponade. [facility] cardiology was then contacted and he was accepted in transfer to the cardiology service. On arrival to [facility] he was feeling well without complaints [...] outpatient. A follow-up TTE was scheduled at [facility] cardiology clinic at the earliest date [...] to be obtained on January 01 at [facility] cardiology clinic Discharge Conditions/Prognosis: Good Discharge [...] follow up with Dr. Kurt Hernández at [facility] Cardiology Clinic on January 14 at 2:10 pm, location [facility] 4A. This is important to continue the work-up for the cause of your tamponade. You should also follow up with your primary care doctor, Dr. DIANA BOOKER, on , January 01, at12:50 pm. General Instructions None Future Appointments and Orders Future Appointments: Provider: Department: Dept Phone: Center: 01/15/2012 2:10 PM Kurt Hernández MD [facility] 4a [phone] [facility] Joint Appt Nurse Cardiology, RN [facility] 4a [phone] [facility] Future Orders Please Complete By Expires Echo Transthoracic (Complete) [ECH10 Custom] 12/30/11 12/26/12 ProcessInstructions: Scheduling Instructions: Comments: Questions: Responses: Should this service/procedure be billed to the research sponsor? Which location will this be performed? [place] Provider Contact Information: Attending: Dr. Mei Fellow: Dr. Hernández Discharge References/Attachments: Discharge References/Attachments None Signed: Donya Medrano MD, PhD Internal Medicine PGY-1 DATE: 12/27/2011 documented in this encounter Plan of Treatment Upcoming Encounters Date Type Department Care Team (Late st Contact Info) Description 05/11/2024 9:00 AM EST Office Visit Psychiatry [place] [address] Simona Harper, PhD Scheduled Orders Name Type [...] Procedure Name Priority Date/Time Associated Diagnosis Comments CARE CONSULTANT SCAN 12/28/2011 1:34 PM EDT MRI CARDIAC [...] CULTURE AUTOMATED Routine 12/25/2011 8:27 PM EDT NON-FINANCIAL REPORTING ADVISOR FINAL REPORT Routine 12/25/2011 7:06 PM EDT [...] Echo Transthoracic (Complete) (01/02/2012 4:31 PM EDT) [facility] EF 60 HEARTLAB SYSTEM Anatomical Region Laterality Modality Other 01/02/2012 Narrative 01/02/2012 4:43 PM EDT Procedure: ? Transthoracic Echocardiogram Patient: ? PODHURST ALVIN L ?(Age): 1945(66) Med Rec#: ?[id number] ? Sex: ?M ? Site Loc: ?[facility] ? Ht / Wt: ??180(cm)/94(kg) Pt. Loc: ? Echo Lab ? BSA: ?2.17 Study Date: ?01/02/2012 ? Pt. Type: Outpatient Tape: ? Referring: Solange Mei MD Referring: RIAN CARDOZO APRN, E Recruiter: Lara Valerio Diagnosis:CPT Code(s): ??Color Doppler (12595), ??Echo Full (48978), Spectral Doppler (02447), Indication(s): ??Pericardial effusion, F/U Rhythm: Sinus HR [...] ? Mid-Inferior ?Normal ? Mid-Inferoseptal ?Normal ? [place]-Septal ? Normal ? [place]-Anterior ? Normal ? [place]-Lateral ?Normal ? [place]-Inferior ? Normal ? [place]-Tip ?Normal ? Chambers ?Value ?Units (Range) ? [...] 01/02/2012 16:42:52 Images reviewed and interpretation verified [facility] Procedure Note Carl Gomez MD - 01/02/2012 Procedure: Transthoracic Echocardiogram Patient: LORIN East DOB(Age): 1945(66) Med Rec#: [id number] Sex: M Site Loc: [facility] Ht / Wt: 180(cm)/94(kg) Pt. Loc: Echo Lab BSA: 2.17 Study Date: 01/02/2012 Pt. Type: Outpatient Tape: Referring: Solange Mei MD Referring: RIAN CARDOZO APRN, E Recruiter: Lara Valerio Diagnosis:CPT Code(s): Color Doppler (52950), Echo Full (99206), Spectral Doppler (45369), Indication(s): Pericardial effusion, F/U Rhythm: Sinus HR [...] change in the inferior vena cava dimension. [facility], spectral Doppler and color Doppler performed. Wall Motion: Segment Name Rest Base-Anteroseptal Normal Base-Anterior Normal Base-Anterolateral Normal Base-Posterolateral Normal Base-Inferior Normal Base-Inferoseptal Normal Mid-Anteroseptal Normal Mid-Anterior Normal Mid-Anterolateral Normal Mid-Posterolateral Normal Mid-Inferior Normal Mid-Inferoseptal Normal [place]-Septal Normal [place]-Anterior Normal [place]-Lateral Normal [place]-Inferior Normal [place]-Tip Normal Chambers Value Units (Range) IVSd 2D [...] 01/02/2012 16:42:52 Images reviewed and interpretation verified [facility] Solange Mei MD ECHO ORDERABLES * SCAN DOC: CARE CONSULTANT (12/28/2011 1:34 PM EDT) Anatomical Region Laterality [...] EDT Solange Mei MD HEMATOLOGY ORDERABLE S CERCAMILA MCCORDENNIUM * CBC (with Diff) (12/27/2011 5:36 AM [...] MD HEMATOLOGY ORDERABLE S Performing Organization Address City/[facility]/ZIP Co de Phone Number [facility]ARDO [facility]ORD[facility]AN[facility] * Phosphorus (12/27/2011 5:36 AM EDT) Phosphorus 3.7 2.5 - 4.5 mg/dL CERNER MILLENNIUM Blood specimen (specimen) 12/27/2011 5:36 AM EDT 12/27/2011 5:59 AM EDT Narrative Resulting Agency Comment Spec In Lab Solange Mei MD CHEMISTRY ORDERABLES Performing Organization Address [facility] Co de Phone Number CERNER MILLENNIUM * Magnesium (12/27/2011 5:36 AM EDT) Magnesium 0.86 0.69 - 1.07 mmol/L CERNER MILLENNIUM Blood specimen (specimen) 12/27/2011 5:36 AM EDT 12/27/2011 5:59 AM EDT Narrative Resulting Agency Comment Spec In Lab Solange Mei MD CHEMISTRY ORDERABLES Performing Organization Address [facility] de Phone Number CERNER MILLENNIUM * Basic Metabolic Panel (non-fasting) (12/27/2011 5:36 AM EDT) Glucose 105 60 - 199 mg/dL CERNER MILLENNIUM Comment:Diabetes: >=200 mg/d L plus symptoms Blood Urea Nitrogen 13 10 - 20 mg/dL CERNER MILLENNIUM Creatinine 1.07 0.80 - 1.50 mg/dL CERNER MILLENNIUM Comment: Please note that the pediatric reference intervals supplied above were not validated at [facility]. Results from pediatric patients should be [...] MILLENNIUM Est Glomerular Filtration Rate >60 >=60 [facility] Comment: The National Kidney Disease Education Program [...] Mei MD CHEMISTRY ORDERABLES EDUARDO DIAZ * QuantiFERON-TB Gold (12/27/2011 5:36 AM EDT) Quantiferon-TB Gold Negative Negative EDUARDO DIAZ Comment: M. tuberculosis (TB) infection NOT likely [...] IT assay will be performed in the [facility] Reference Lab. Please call , press 4; with questions. Blood specimen (specimen) 12/27/2011 5:36 AM EDT 12/30/2011 8:00 AM EDT Narrative Resulting Agency Comment Spec In Lab Solange Mei MD CHEMISTRY ORDERABLES Performing Organization Address [facility] Co de Phone Number EDUARDO DIAZ [...] PODHURST ALVIN L ?(Age): 1945(66) Med Rec#: ?[id number] ? Sex: ?M ? Site Loc: ?[facility] ? Ht / Wt: ??180(cm)/93(kg) Pt. Loc: ? Adult Floor ?BSA: ?2.13 Study Date: ?12/26/2011 ? Pt. Type: Inpatient Tape: ? Referring: Solange Mei MD Referring: MARLO WORKMAN E Recruiter: Devaughn Ahuja MS, [facility] Diagnosis: ??Pericardial effusion (423.9) CPT Code(s): ??Echo LTD (90814), ??Doppler LTD (18792), Indication(s): ??Pericardial effusion, F/U Rhythm: HR ?BP [...] ? Mid-Inferior ?Normal ? Mid-Inferoseptal ?Normal ? [place]-Septal ? Normal ? [place]-Anterior ? Normal ? [place]-Lateral ?Normal ? [place]-Inferior ? Normal ? [place]-Tip ?Normal ? Chambers ?Value ?Units (Range) ? LV EF Est ? 65 ? % (55 to 80) ? This report has been electronically signed by: Washington Nicole M.D. ? 12/26/2011 08:52:57 Images reviewed and interpretation verified [facility] Procedure Note Washington Nicole MD - 12/26/2011 Procedure: Transthoracic Echocardiogram Patient: LORIN GREGORIO(Age): 1945(66) Med Rec#: [id number] Sex: M Site Loc: [facility] Ht / Wt: 180(cm)/93(kg) Pt. Loc: Adult Floor BSA: 2.13 Study Date: 12/26/2011 Pt. Type: Inpatient Tape: Referring: Solange Mei MD Referring: MARLO WORKMAN E Recruiter: Devaughn Ahuja MS, RDCS Diagnosis: Pericardial effusion (423.9) CPT Code(s): Echo LTD (84216), Doppler LTD (77247), Indication(s): Pericardial effusion, F/U Rhythm: HR BP [...] is no echo evidence of pericardial tamponade. [facility]/SD Wall Motion: Segment Name Rest Base-Anteroseptal Normal Base-Anterior Normal Base-Anterolateral Normal Base-Posterolateral Normal Base-Inferior Normal Base-Inferoseptal Normal Mid-Anteroseptal Normal Mid-Anterior Normal Mid-Anterolateral Normal Mid-Posterolateral Normal Mid-Inferior Normal Mid-Inferoseptal Normal [place]-Septal Normal [place]-Anterior Normal [place]-Lateral Normal [place]-Inferior Normal [place]-Tip Normal Chambers Value Units (Range) LV EF Est 65 % (55 to 80) This report has been electronically signed by: Washington Nicole M.D. 12/26/2011 08:52:57 Images reviewed and interpretation verified [facility] Solange Mei MD ECHO [...] AM EDT 12/26/2011 6:31 AM EDT Solange S [place] HEMATOLOGY ORDERABLE S EDUARDO DIAZ * Cardiac Enzymes (12/26/2011 6:15 AM EDT) Troponin-T <0.03 <=0.03 ng/mL CERNER MILLENNIUM Comment: 0.03 ng/mL: Represents the 99th percentile upper reference limit for normals. >0.03 ng/mL: Elevated cardiac troponin T level indicative of myocardial damage. Diagnosis of acute, evolving or recent IA requires a typical rise and gradual fall [...] consensus document of the Joint Society of Cardiology/[place] College of Cardiology Committee for the redefinition of myocardial infarction. Journal of the [place] College of Cardiology 2000; 36: 959-969] Creatine Kinase 61 0 - 200 unit/L CERNER MILLENNIUM Blood specimen (specimen) 12/26/2011 6:15 AM EDT 12/26/2011 6:31 AM EDT Narrative Resulting Agency Comment Spec In Lab Solange Mei MD CHEMISTRY ORDERABLES CERNER NELIAIUM * Lipid panel (fasting) (12/26/2011 6:15 AM EDT) Cholesterol, Total 126 <=199 mg/dL CERNER MILLENNIUM Comment: Recommendations of the NCEP Adult Treatment Panel for the following risk cutoff thresholds for the [place] population: Desirable: <200 mg/dL Borderline High: 200-239 mg/dL High: > or = 240 mg/dL Triglyceride 92 <=149 mg/dL CERNER MILLENNIUM Comment: Reference Range: Normal triglycerides: ??<150 mg/dL Borderline high: ??150-199 mg/dL High: ??200-499 mg/dL Very high: ??>wa=438 mg/dL JOB 2001; 285(19):6728-8406 HDL Cholesterol 46 >=40 mg/dL CER NER MILLENNIUM Comment: Reference range: ??Low HDL: ?? < 40 mg/dL ??Normal: ?40-60 mg/dL ??Desirable: > 60 mg/dL JOB 2001; 285(19):5879-6468 LDL Cholesterol 62 <=99 mg/dL CER NER MILLENNIUM Comment: Reference range: ?? Optimal: ?<100 mg/dL ?? Near Optimal/Above Optimal: ?? 100-129 mg/dL ?? Borderline high: ?130-159 mg/dL ?? High: ? 160-189 mg/dL ?? Very high: ?>id=975 mg/dL JOB 2001: 285(19):8351-2531 Cholesterol/HDL Ratio 2.7 ratio CERNER MILLENNIUM Comment: A Cholesterol to HDL ratio below 4:1 is desirable. ??Studies suggest that increased CAD risk occurs at ratios above 5 for females and above 6 for men. ? [place] Heart Association ??(http://www.americanheart.org) ? Sharon Int Med, 1994; 121:641 ? AM J Med, 1998; 105(1A):48S Blood specimen (specimen) 12/26/2011 6:15 AM EDT 12/26/2011 6:31 AM EDT Narrative Resulting Agency Comment Spec In Lab Solange Mei MD CHEMISTRY ORDERABLES Performing Organization Address [facility] de Phone Number EDUARDO MCCORDB[facility]ENT[facility]VONNE * Prothrombin Time (12/26/2011 6:15 AM EDT) Prothrombin Time 14.6 11.9 - 14.7 sec CERNER MILLENNIUM Comment: [facility] Transfusion Committee Guidelines: INR less than 2.0, [...] MD HEMATOLOGY ORDERABLE S Performing Organization Address [facility] de Phone Number ED[facility]ARDO [facility]ORDAD[facility] * Hepatic Function Panel (12/26/2011 6:15 AM EDT) Pathologist [facility] Protein, Total 7.6 6.4 - 8.3 gm/dL [...] intervals supplied above were not validated at [facility]. Results from pediatric patients should be [...] In Lab Solange Mei MD CHEMISTRY ORDERABLES [facility] * CBC (with Diff) (12/26/2011 6:15 AM [...] EKG 12 Lead (12/26/2011 6:01 AM EDT) Pathologist [facility] Ventricular rate 97 BPM MUSE SYSTEM Atrial Rate 97 BPM MUSE SYSTEM P-R Interval 148 ms MUSE SYSTEM QRS Duration 100 ms MUSE SYSTEM Q-T Interval 344 ms MUSE SYSTEM QTC Calculated (Bezet) 436 ms MUSE SYSTEM Calculated P [place] 57 degrees MUSE SYSTEM Calculated R [place] -16 degrees MUSE SYSTEM Calculated T [place] 92 degrees MUSE SYSTEM INTERPRETATION Normal sinus [...] ? Ordered By: SOLANGE MEI ? MR#: [id number] ?LOC: ??[facility] ? /Sex: ??1945 (66 years), [...] testing is required, contact the Microbiology ? [place]. ? PRELIMINARY REPORT ? Preliminary Report ? Verified:01/01/20 12 08:22 ? Coagulase negative Staphylococcus species isolated ? Susceptibility testing in progress ? Patient: ALVIN CAT ? MR#: [id number] ? SUSCEPTIBILITY RESULTS ? Coagulase negative Staphylococcus [...] - GENER AL ORDERABLES EDUARDO DIAZ * NON-FINANCIAL REPORTING ADVISOR FINAL REPORT (12/25/2011 7:06 PM EDT) Non-Environmental Services Attendant Final Report ? [facility] ? Provider: ?? [facility], ?Pt. Name: ?? ALVIN CAT ?ROSA Payton ? Acc #: ?[id number] ?Pt. ? Col Date: ?? 12/25/2011 ? /Sex: ?1945,(66 years),Male ? Rec Date: ?? 12/25/2011 ? LOC: ?[facility] ? CYTOPATHOLOGY: ??NGYN ? ---Adequacy--- ? Specimen submitted is satisfactory. ? ---Cytopathologic Diagnosis--- ? See Comment ? 12/27/11 ?Screened by: ? LMY ? Rescreened by: ?? EJG,EJG ? 12/29/11 ?Verified by: ? Gutmann MD, Toribio Fraire ?Cytopathologist ?(Electronic Signature) ? ---Comment--- [...] Findings: ?(none provided) ? Gross Description: ? [facility] ? Provider: ?? [facility], ?Pt. Name: ?? ALVIN CAT ?ROSA Payton ? Acc #: ?[id number] ?Pt. ? Col Date: ?? 12/25/2011 ? /Sex: ?1945,(66 years),Male ? Rec Date: ?? 12/25/2011 ? LOC: ?[facility] ? CYTOPATHOLOGY: ??NGYN ?Received fresh, approximately 100 ml. total volume of cloudy, bloody ? fluid. ?Total Preparation: Liquid Based Prep 1; Cell Block 1. EDUARDO DIAZ 12/25/2011 7:06 PM EDT Rosa Bess MD PATHOLOGY/C YTOLOGY ORDERABLES EUDARDO DIAZ * CYTOMEGALOVIRUS CULTURE (12/25/2011 7:03 PM EDT) Cytomegalovirus Culture ? Patient Name: ALVIN CAT ? Ordered By: SOLANGE MEI ? MR#: [id number] ?LOC: ??[facility] ? /Sex: ??1945 (66 years), [...] developed and its performance determined by the [facility] Dept. of ? Pathology, Clinical ? Laboratory. ??It has not been cleared or approved by the U.S. Food and Drug ? Administration. ??The FDA has ? determined that such clearance or approval is not necessary. ? This test is used for clinical purposes. ? ED[facility]ARDO M[facility]ORDB[facility] Pericardial fluid specimen (specimen) 12/25/2011 7:03 PM EDT 12/25/2011 7:04 PM EDT Narrative Resulting Agency Comment Spec In Lab Solange Mei MD MICROBIOLOGY - GENER AL ORDERABLES [facility] * AFB CULTURE (12/25/2011 7:03 PM EDT) Acid Fast Bacilli Culture ? Patient Name: ALVIN CAT ? Ordered By: SOLANGE MEI ? MR#: [id number] ?LOC: ??[facility] ? /Sex: ??1945 (66 years), [...] ? Ordered By: SOLANGE MEI ? MR#: [id number] ?LOC: ??[facility] ? /Sex: ??1945 (66 years), ? Male ? PROCEDURE: Calcofluor White Stain ?SOURCE: Pericardial Fl ? COLLECTED: 12/25/2011 19:02 ? STARTED: 12/25/2011 19:02 ? STAINS / PREPARATIONS ? Calcofluor Stain Report ? Verified: 012 23:23 ? Calcofluor White Preparation: Negative ? EDUARDO DIAZ Pericardial fluid specimen (specimen) 12/25/2011 7:02 PM EDT 12/25/2011 7:02 PM EDT Narrative Resulting Agency Comment Spec In Lab Solange Mei MD MICROBIOLOGY - GENER AL ORDERABLES EDUARDO DIAZ * FUNGUS CULTURE (12/25/2011 7:02 PM EDT) Fungus Culture ? Patient Name: ALVIN CAT ? Ordered By: SOLANGE MEI ? MR#: [id number] ?LOC: ??[facility] ? /Sex: ??1945 (66 years), ? Male ? PROCEDURE: Fungus Culture ?SOURCE: Pericardial Fl ? COLLECTED: 12/25/2011 19:02 ? STARTED: 12/25/2011 19:02 ? FINAL REPORT ? Final Report ? Verified:2011 07:18 ? No Fungus isolated ? PRELIMINARY REPORT ? Preliminary Report ? Verified:2011 09:12 ? No Fungus isolated to date ? EDUARDO DIAZ Pericardial fluid specimen (specimen) 12/25/2011 7:02 PM EDT 12/25/2011 7:02 PM EDT Narrative Resulting Agency Comment Spec In Lab Solange Mei MD MICROBIOLOGY - GENER AL ORDERABLES EDUARDO DIAZ * ANAEROBIC CULTURE (12/25/2011 7:02 PM EDT) Anaerobic Culture ? Patient Name: ALVIN CAT ? Ordered By: SOLANGE MEI ? MR#: [id number] ?LOC: ??[facility] ? /Sex: ??1945 (66 years), [...] ? Ordered By: SOLANGE MEI ? MR#: [id number] ?LOC: ??[facility] ? /Sex: ??1945 (66 years), [...] - GENER AL ORDERABLES Performing Organization Address City/[facility]/ZIP Co de Phone Number EDUARDO DIAZ * BODY FLUID HOLD (12/25/2011 6:15 PM EDT) HOLD, FLD Pericardial fl GARRY DIAZ Body fluid specimen (specimen) 12/25/2011 6:15 PM EDT 12/25/2011 7:19 PM EDT Solange Mei MD BODY FLUIDS AND STOO LS ORDERABLES Performing Organization Address [facility] Co de Phone Number EDUARDO DIAZ * BODY FLUID MISCELLANEOUS (12/25/2011 6:15 PM EDT) Misc BF Result Not Perf GARRY DIAZ Comment:Specimen type is sotero cceptable Misc BF Type Pericardial fl CE RNER MEILY Body fluid specimen (specimen) 12/25/2011 6:15 PM EDT 12/25/2011 7:19 PM EDT Narrative Resulting Agency Comment Spec In Lab Solange Mei MD BODY FLUIDS AND STOO LS ORDERABLES Performing Organization Address City/[facility]/ZIP Co de Phone Number EDUARDO DIAZ * MISCELLANEOUS LAB REQUEST (12/25/2011 6:15 PM EDT) Label Request received in lab. EDUARDO DIAZ Specimen of unknown material (specimen) 12/25/2011 6:15 PM EDT 12/25/2011 7:14 PM EDT Solange Mei MD LAB SEND OUT ORDERAB LES Performing Organization Address [facility] Co de Phone Number [facility]LEX[facility] * Protein Level Body Fluid (12/25/2011 6:15 [...] AND STOO LS ORDERABLES Performing Organization Address [facility] de Phone Number EDUARDO MCCORDENNIUM * Lactate Dehydrogenase Body Fluid (12/25/2011 6:15 PM EDT) Lactate Dehydrogenase, Fluid >2500 unit/L [facility] MILLENNIUM Comment: No reference range is available [...] AND STOO LS ORDERABLES Performing Organization Address [facility] Co de Phone Number [facility] FLEXEN[facility]UM * Glucose Level Body Fluid (12/25/2011 6:15 PM EDT) Glucose, Fluid 61 mg/dL CERNE R MILLENNIUM Comment: No reference range is [...] AND STOO LS ORDERABLES Performing Organization Address [facility] Co de Phone Number [facility] * Cholesterol Level Body Fluid (12/25/2011 6:15 PM EDT) Cholesterol, Fluid 97 mg/dL [facility] Comment: No reference range is available [...] AND STOO LS ORDERABLES Performing Organization Address [facility] Co de Phone Number [facility] * Albumin Level Body Fluid (12/25/2011 6:15 PM EDT) Albumin, Fluid 3.3 gm/dL CERNE R MILLENNIUM Comment: In the evaluation of [...] AND STOO LS ORDERABLES Performing Organization Address [facility] Co de Phone Number CERNER MILLENNIUM [...] Narrative Resulting Agency Comment Spec In Lab Solagne Mei MD BODY FLUIDS AND STOO LS ORDERABLES EDUARDO PICKENSIUM * Cytopathology Non-Gynecological (12/25/2011 5:40 PM EDT) AP Specimen 12/25/2011 5:40 PM EDT 12/25/2011 5:40 PM EDT Narrative HOLLICAMILA MCCORDENNIUM - 12/25/2011 5:40 PM EDT Specimen requisition ordered. ??Separate Pathology report to follow Solange Mei MD PATHOLOGY/CYTOLOGY O RDERABLES Performing Organization Address [facility]/ZIP Co de Phone Number [facility]IL[facility]ORD[facility] * RHEUMATOID FACTOR, QUANT (12/25/2011 4:07 PM EDT) Rheumatoid Factor 10 <=14 IU/mL EDUARDO FLEXBANNER CAS[facility] GR[facility] CENTERIUM Blood specimen (specimen) 12/25/2011 4:07 PM EDT 12/25/2011 6:13 PM EDT Narrative Resulting Agency Comment Spec In Lab Solange Mei MD CHEMISTRY ORDERABLES Performing Organization Address [facility] Co de Phone Number HOLLICAMILA PICKENSIUM * (ABNORMAL) LACTATE DEHYDROGENASE (12/25/2011 4:07 PM EDT) Lactate Dehydrogenase 271(H) 110 - 220 unit/L EDUARDO NELIAIUM Blood specimen (specimen) 12/25/2011 4:07 PM EDT 12/25/2011 4:19 PM EDT Narrative Resulting Agency Comment Spec In Lab Solange Mei MD CHEMISTRY ORDERABLES Performing Organization Address [facility]/ZIP Co de Phone Number EDUARDO PICKENSIUM * (ABNORMAL) DIFFERENTIAL, AUTOMATED (12/25/2011 4:07 PM EDT) Neutrophil % 80.6(H) 34.0 - 71.0 % [facility] MILLENNIUM Neutrophil Absolute 5.46 1.50 - 6.30 x10(3)/mc L [facility] MILL[facility] Lymph % 10.2(L) 19.0 - 53.0 % [facility] Lymphocytes Abs 0.7(L) 1.0 - 3.6 x10(3)/mc [...] x10(3)/mc L CERNER MILLENNIUM Blood specimen (specimen) 12/25/2011 4:07 PM EDT 12/25/2011 4:16 PM EDT Solange Mei MD HEMATOLOGY ORDERABLE S EDUARDO DIAZ * DNA Antibody (Double-Stranded) (12/25/2011 4:07 PM EDT) DNA Ab (DS) Neg Neg CERNER MILLENNIUM Blood specimen (specimen) 12/25/2011 4:07 [...] Mei MD CHEMISTRY ORDERABLES Performing Organization Address [facility]/ZIP Co de Phone Number EDUARDO DIAZ * (ABNORMAL) APTT (12/25/2011 4:07 PM EDT) Partial Thromboplastin Time 36(H) 25 - 35 sec EDUARDO PICKENSIUM Comment: Recommended therapeutic PTT range for full dose unfractionated heparin is 80-114 seconds. Blood specimen (specimen) 12/25/2011 4:07 PM EDT 12/25/2011 4:16 PM EDT Narrative Resulting Agency Comment Spec In Lab Solange Mei MD HEMATOLOGY ORDERABLE S Performing Organization Address [facility] Co de Phone Number EDUARDO DIAZ * Prothrombin Time (12/25/2011 4:07 PM EDT) Prothrombin Time 14.3 11.9 - 14.7 sec EDUARDO DIAZ Comment: [facility] Transfusion Committee Guidelines: INR less than 2.0, [...] MD HEMATOLOGY ORDERABLE S Performing Organization Address City/[facility] Co de Phone Number EDUARDO DIAZ [...] Platelet Volume 9.6 9.0 - 12.0 fL CERCAMILA MILLENNIUM Blood specimen (specimen) 12/25/2011 4:07 PM EDT 12/25/2011 4:16 PM EDT Narrative Resulting Agency Comment Spec In Lab Solange Shira Mei MD HEMATOLOGY ORDERABLE S EDUARDO PICKENSIUM * (ABNORMAL) BMP w/fasting Glucose (12/25/2011 4:07 PM EDT) Glucose Fasting 87 65 - 99 mg/dL [facility] Comment: ?Fasting* Glucose Interpretive Criteria Normal ?65-99 [...] of Diabetes Mellitus, Position Statement from the [place] [employer]. ??Diabetes Care, Volume 33, Supplement 1, Jun 2009 Blood Urea Nitrogen 9(L) 10 - 20 mg/dL CERNER MILLENNIUM Creatinine 0.99 0.80 - 1.50 mg/dL CERNER MILLENNIUM Comment: Please note that the pediatric reference intervals supplied above were not validated at [facility]. Results from pediatric patients should be [...] Mei MD CHEMISTRY ORDERABLES Performing Organization Address [facility] Co de Phone Number [facility] * EKG 12 Lead (12/25/2011 4:01 PM EDT) Ventricular rate 91 BPM MUSE SYSTEM Atrial Rate 91 BPM MUSE SYSTEM P-R Interval 148 ms MUSE SYSTEM QRS Duration 102 ms MUSE SYSTEM Q-T Interval 352 ms MUSE SYSTEM QTC Calculated (Bezet) 432 ms MUSE SYSTEM Calculated P [place] 57 degrees MUSE SYSTEM Calculated R [place] -3 degrees MUSE SYSTEM Calculated T [place] 107 degrees MUSE SYSTEM INTERPRETATION Normal sinus rhythm Nonspecific T wave abnormality Abnormal ECG When compared with ECG of 12-APR-2010 13:20, Nonspecific T wave abnormality Present Confirmed by MD Agustina, Don ([id number]) on 12/25/2011 5:09:05 PM MUSE SYSTEM 12/25/2011 4:01 PM EDT 12/25/2011 5:09 PM EDT Solange Mei MD ECG ORDERABLES Performing Organization Address [facility] Co de Phone Number MUSE SYSTEM * Echo Transthoracic (Complete) (12/25/2011 3:52 PM EDT) EF 65 HEARTLAB SYSTEM Anatomical Region Laterality Modality Other 12/25/2011 Narrative 12/25/2011 4:27 PM EDT Procedure: ? Transthoracic Echocardiogram Patient: ? LORIN East ?(Age): 1945(66) Med Rec#: ?[id number] ? Sex: ?M ? Site Loc: ?[facility] ? Ht / Wt: ??180(cm)/94(kg) Pt. Loc: ? Echo Lab ? BSA: ?2.17 Study Date: ?12/25/2011 ? Pt. Type: Inpatient Tape: ? Referring: Sammy Balbuena Referring: MARLO WORKMAN E Recruiter: Devaughn Ahuja MS, [facility] Recruiter 2: Kurt Hernández ([id number]) Diagnosis: ??Pericardial effusion (423.9) CPT Code(s): ??Echo Full (55502), ??Spectral Doppler (55348), ??Color Doppler (36221), Indication(s): ??Pericardial effusion, R/O Rhythm: HR ?BP [...] ? Mid-Inferior ?Normal ? Mid-Inferoseptal ?Normal ? [place]-Septal ? Normal ? [place]-Anterior ? Normal ? [place]-Lateral ?Normal ? [place]-Inferior ? Normal ? [place]-Tip ?Normal ? Chambers ?Value ?Units (Range) ? [...] 12/25/2011 16:27:05 Images reviewed and interpretation verified [facility] Procedure Note Devang Burns MD - 12/25/2011 Procedure: Transthoracic Echocardiogram Patient: LORIN GREGORIO(Age): 1945(66) Med Rec#: [id number] Sex: M Site Loc: [facility] Ht / Wt: 180(cm)/94(kg) Pt. Loc: Echo Lab BSA: 2.17 Study Date: 12/25/2011 Pt. Type: Inpatient Tape: Referring: Sammy Balbuena Referring: MARLO WORKMAN E Recruiter: Devaughn Ahuja MS, [facility] Recruiter 2: Kurt Hernández ([id number]) Diagnosis: Pericardial effusion (423.9) CPT Code(s): Echo Full (13006), Spectral Doppler (88094), Color Doppler (02282), Indication(s): Pericardial effusion, R/O Rhythm: HR BP [...] change in the inferior vena cava dimension. [facility] Two-dimensional echo, spectral Doppler and color Doppler performed. Wall Motion: Segment Name Rest Base-Anteroseptal Normal Base-Anterior Normal Base-Anterolateral Normal Base-Posterolateral Normal Base-Inferior Normal Base-Inferoseptal Normal Mid-Anteroseptal Normal Mid-Anterior Normal Mid-Anterolateral Normal Mid-Posterolateral Normal Mid-Inferior Normal Mid-Inferoseptal Normal [place]-Septal Normal [place]-Anterior Normal [place]-Lateral Normal [place]-Inferior Normal [place]-Tip Normal Chambers Value Units (Range) LV EF [...] 12/25/2011 16:27:05 Images reviewed and interpretation verified [facility] oSlange Mei MD ECHO ORDERABLES documented in this [...] from all sources in 24 hours., Routine 2109 (Given - Provider: Ale Marie, ELIZABETH) sodium chloride 0.9 % flush 5 mL (CANCELED) 5 mL, Intravenous, EVERY 12 HOURS, First dose on Fri12/25/11 at 1700, Until Discontinued 1700 (Given - Provider: Devang Barroso RN) 0500 (Given - Provider: Ael Marie, ELIZABETH)1700 (Given - Provider: Tracy Ron RN - Comment: continuous infusion normal saline) 0530 (Given - Provider: Crystal Carbone RN) sodium chloride 0.9% 500 mL IV bolus (COMPLETED) Intravenous, ONCE, 1 dose, On Shazia 12/26/11 at 0700 0700 (Given by Other - Provider: Wanda Rock RN) Continuous Medication Order 12/25/2011 12/26/2011 12/27/2011 [...] RN) documented in this encounter Care Teams Roll Grinder Relationship Specialty Start Date End Date Diana Booker MD [address] [place] [address] PCP - General 05/22/10 09/11/17 documented as of this encounter
--- OUTSIDE RECORDS SUMMARY | 2024-05-10 18:27 | XMS_ITS | Encounter Summary ---
Author Organization [facility] Address [address] [place] [address] Care Team Providers Care Huc Ob Name Role Phone Unknown, Provider Primary Care Provider Yudelka ruiz Encounter Details Date Type Department Care Team (Late st Contact Info) Description 12/30/2019 Lab Requisition [facility] Pathology & Laboratory Medicine - [address] [id number] Outr Resulting Lab, Provider Social History Tobacco [...] 0.0 - 6.5 ng/mL 12/31/2019 12:55 EDT [facility] Blood VENOUS BLOOD / Unknown 12/29/2019 9:15 EDT 12/30/2019 16:37 EDT Narrative [facility] - 12/31/2019 12:55 EDT NOTE: Serum PSA concentration should not be interpreted as absolute evidence for the presence or absence of malignant disease. Assayed on Siemens ADVIA Centaur XPT using chemiluminescent technology.??Values obtained by using different assay methods cannot be used interchangeably. Provider Outr Resulting Lab CHEMISTRY & BLOOD GA S ORDERABLES Final Result Performing Organization Address [facility] Co de Phone Number [facility] [address] [place] [address] * CEA (12/29/2019 9:15 EDT) CEA 2.4 See Note ng/mL 12/31/2019 12:55 EDT [facility] Comment: % Distribution of CEA [...] Provider Outr Resulting Lab CHEMISTRY & BLOOD GA S ORDERABLES Final Result Performing Organization Address [facility] Co de Phone Number [facility] [address] [place] [address] documented in this encounter Visit Diagnoses Not on filedocumented in this encounter Care Teams Huc Ob Relationship Specialty Start Date End Date Unknown, Provider, PCP - General 06/16/09 documented as of this encounter
--- OUTSIDE RECORDS SUMMARY | 2024-05-10 18:27 | XMS_ITS | Encounter Summary ---
[place] [address] Care Team Providers Care Underbaster Name Role Phone Diana Weaver MD Primary Care Provider [phone] Reason for Referral * Physical Therapy (Routine) - Closed Specialty Diagnoses / Procedures Referred By Ronald parada Referred To Contact Physical Therapy Diagnoses Rotator cuff disorder Oliver Carter MD [facility] [place] [address] [facility] [place] [address] Referral ID Status Reason Start Date Expiration Date V isits Requested Visits Authorized [id number] Closed Evaluate and Treat 05/16/2011 11/12/2011 1 1 Reason for Visit * Reason Comments Bilateral Shoulder Pain Pain worse on th e left side Encounter Details Date Type Department Care Team (Late st Contact Info) Description 05/16/2011 8:40 AM EST Office Visit [place] [address] Oliver Carter MD [facility] [place] [address] Rotator cuff disorder bilateral (L>R) [...] in the past by Dr. Alva, in [facility], who he states performed an MRI about [...] His knees were both replaced here at [facility], in 04/2010. Medications include ibuprofen and Tylenol. HIS ONLY ALLERGIES ARE TO PENICILLIN AND DIPHENHYDRAMINE. 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 He states he stays physically active [...] tendinitis are negative with negative Speed's test. [place]'s test is nontender, and he has very [...] Office Visit Psychiatry and Behavioral [place] [address] Simona Harper, PhD Scheduled Referrals Name Type [...] mg documented in this encounter Care Teams Underbaster Relationship Specialty Start Date End Date Diana Weaver MD [address] [place] [address] PCP - General 05/22/10 09/11/17 documented as of this encounter
--- OUTSIDE RECORDS SUMMARY | 2024-05-10 18:27 | XMS_ITS | Encounter Summary ---
Author Organization [facility] Address [facility] [place] [address] Care Team Providers Care Vibration Engineer Name Role Phone Diana Weaver MD Primary Care Provider [phone] Encounter Details Date Type Department Care Team (Latest Contact Info) Description 05/16/2011 7:50 AM EST - 05/16/2011 11:59 PM EST Hospital Encounter XRay at [address] [place] [address] S/P shoulder surgery Social History Tobacco Use [...] Office Visit Psychiatry [place] [address] Simona Harper, PhD documented as [...] status documented in this encounter Care Teams Vibration Engineer Relationship Specialty Start Date End Date Diana Weaver MD [address] [place] [address] PCP - General 05/22/10 09/11/17 documented as of this encounter
--- OUTSIDE RECORDS SUMMARY | 2024-05-10 18:27 | XMS_ITS | Encounter Summary ---
[facility] [place] [address] Care Team Providers Care Humane Agent Name Role Phone Washington Puckett MD Primary Care Provider [phone] Encounter Details Date Type Department Care Team (Late st Contact Info) Description 05/08/2010 Orders [place] [address] Ed Post MD [facility] [place] [address] Social History Tobacco Use Types Packs/Day Years [...] Office Visit Psychiatry [place] [address] Simona Harper, PhD documented as of this encounter Procedures Procedure Name Priority Date/Time Associated Diagnosis Comments SURGICAL PATHOLOGY REPORT Routine 05/08/2010 9:52 AM EST documented in this encounter Results * Surgical Pathology Report (05/08/2010 9:52 AM EST) Surgical Pathology Report [id number] ? Location: 3WST; 0322; A The signing pathologist has (i) examined [...] report in rendering the final pathologic diagnosis. [facility] 05/08/2010 9:52 AM EST Ed Post MD PATHOLOGY/CYTOLOGY [facility] documented in this encounter Visit Diagnoses Not on filedocumented in this encounter Care Teams Humane Agent Relationship Specialty Start Date End Date Washington Puckett MD [address] [place] [address] PCP - General Internal Medicine 09/12/17 01/25/24 documented as of this encounter
--- OUTSIDE RECORDS SUMMARY | 2024-05-10 18:27 | XMS_ITS | Encounter Summary ---
Author Organization [facility] Address [address] [place] [address] Care Team Providers Care Artificial Breeding Technician Name Role Phone Unknown, Provider Primary Care Provider Yudelka ruiz Encounter Details Date Type Department Care Team (Late st Contact Info) Description 11/25/2020 Lab Requisition [facility] Pathology & Laboratory Medicine - [address] [address] Outr Resulting Lab, Provider Social History Tobacco [...] H. Pylori Negative Negative 11/28/2020 15:35 EDT [facility] Feces SPECIMEN FROM RECTUM / Unknown 11/24/2020 13:50 EDT 11/26/2020 15:53 EDT Narrative [facility] - 11/28/2020 15:35 EDT Results were obtained with the [place] [employer] HpSA Plus FRED[place]ICK. us Provider Outr Resulting Lab MICROBIOLOGY - GENER AL ORDERABLES Final Result [facility] [address] [place] [address] documented in this encounter Visit Diagnoses Not on filedocumented in this encounter Care Teams Artificial Breeding Technician Relationship Specialty Start Date End Date Unknown, Provider, PCP - General 06/16/09 documented as of this encounter
--- OUTSIDE RECORDS SUMMARY | 2024-05-10 18:27 | XMS_ITS | Encounter Summary ---
[place] [address] Care Team Providers Care Burnishing Machine Operator Name Role Phone Diana Weaver MD Primary Care Provider [phone] Encounter Details Date Type Department Care Team (Late st Contact Info) Description 06/11/2010 9:30 AM EST Procedure visit [place] [address] Social History Tobacco Use Types Packs/Day Years [...] Office Visit Psychiatry and [place] [address] Simona Harper, PhD documented as of this encounter Visit Diagnoses Not on filedocumented in this encounter Care Teams Burnishing Machine Operator Relationship Specialty Start Date End Date Diana Weaver MD [address] [place] [address] PCP - General 05/22/10 09/11/17 documented as of this encounter
--- OUTSIDE RECORDS SUMMARY | 2024-05-10 18:27 | XMS_ITS | Encounter Summary ---
Author Organization [facility] Address [address] [place] [address] Care Team Providers Care Granite Countertop Installer Name Role Phone Unknown, Provider Primary Care Provider Unaval ilable Encounter Details Date Type Department Care Team (Late st Contact Info) Description 05/20/2022 Lab Requisition [facility] Pathology & Laboratory Medicine - [address] [address] Outr Resulting Lab, Provider Social History Tobacco [...] PSA 0.9 <=6.5 ng/mL 05/20/2022 21:57 EST [facility] Blood VENOUS BLOOD / Unknown 05/20/2022 9:30 EST 05/20/2022 20:30 EST Narrative [facility] - 05/20/2022 21:57 EST NOTE: Serum PSA concentration should not be interpreted as absolute evidence for the presence or absence of malignant disease. Assayed on Siemens ADVIA Centaur XPT using chemiluminescent technology.??Values obtained by using different assay methods cannot be used interchangeably. us Provider Outr Resulting Lab CHEMISTRY & BLOOD GA S ORDERABLES Final Result Performing Organization Address [facility] Co de Phone Number [facility] [address] [place] [address] * ANTI NUCLEAR AB (OLEGARIO), IFA (05/20/2022 9:30 EST) OLEGARIO Interpretation Negative Negative 2021 14:19 EST [facility] Comment:No titer performed, OLEGARIO Screen is negative. Blood VENOUS BLOOD / Unknown 05/20/2022 9:30 EST 05/20/2022 20:30 EST Narrative [facility] - 05/21/2022 14:19 EST Results were obtained with the INOVA NOVA Lite HEp-2 OLEGARIO Kit by indirect immunofluorescence. us Provider Outr Resulting Lab IMMUNOLOGY AND SEROL OGY ORDERABLES Final Result Performing Organization Address [facility] Co de Phone Number [facility] [address] [place] [address] documented in this encounter Visit Diagnoses Not on filedocumented in this encounter Care Teams Granite Countertop Installer Relationship Specialty Start Date End Date Unknown, Provider, PCP - General 06/16/09 documented as of this encounter
--- OUTSIDE RECORDS SUMMARY | 2024-05-10 18:27 | XMS_ITS | Encounter Summary ---
Author Organization [facility] [place] [address] Care Team Providers Care Grass Farmer Name Role Phone Unavailable Primary Care Provider Unavailabl e Encounter Details Date Type Department Care Team (Latest Contact Info) Description 04/03/2006 - 04/03/2006 11:59 PM EDT Hospital Encounter Radiology Library at [facility] [place] [address] Washington Deluca MD [facility] [place] [address] Pain Discharge Disposition: Home Social History Tobacco [...] Office Visit Psychiatry and [place] [address] Simona Harper, PhD documented as of this encounter Procedures Procedure Name Priority Date/Time Associated Diagnosis Comments FILM LIBRARY STORAGE ONLY MR HEAD Routine 04/03/2006 12:00 AM EDT Pain documented in this encounter Results * Film Library- Storage only MR Head (04/03/2006 12:00 AM EDT) Narrative [facility] - 01/10/2016 9:05 AM EDT This exam is for storage only and is auto-finalizing. Washington Deluca MD IM FILM LIBRARY O RDERABLES Performing Organization Address City/State/[facility] Co de Phone Number [place], [place] documented in this encounter Visit Diagnoses Diagnosis Pain Generalized pain documented in this encounter
--- OUTSIDE RECORDS SUMMARY | 2024-05-10 18:27 | XMS_ITS | Encounter Summary ---
Author Organization [facility] [place] [address] Care Team Providers Care Core Finisher Name Role Phone Diana Weaver MD Primary Care Provider [phone] Reason for Visit * Reason Comments Aftercare Of Tjr Bilat tka's Encounter Details Date Type Department Care Team (Late st Contact Info) Description 11/13/2010 11:20 AM EDT [place] [address] Maral Vallecillo PA [facility] [place] [address] S/P shoulder surgery (Primary Dx) Discharge Disposition: Home Social History Tobacco Use Types Packs/Day Years Used Date Smoking Tobacco: Never Assessed Sex and Gender Information Value Date Recorded Sex Assigned at Not on file Gender Identity Not on file Sexual Orientation Not on file documented as of this encounter Progress Notes * Maral Vallecillo - 11/13/2010 1:07 PM EDTAddended by: MARAL [...] Office Visit Psychiatry [place] [address] Simona Harper, PhD documented as of this [...] status documented in this encounter Care Teams Core Finisher Relationship Specialty Start Date End Date Diana Weaver MD [address] [place] [address] PCP - General 05/22/10 09/11/17 documented as of this encounter
--- OUTSIDE RECORDS SUMMARY | 2024-05-10 18:27 | XMS_ITS | Encounter Summary ---
Author Organization [facility] [place] [address] Care Team Providers Care Safety Instructor Name Role Phone Diana Weaver MD Primary Care Provider [phone] Encounter Details Date Type Department Care Team (Late st Contact Info) Description 11/23/2010 Orders [place] [address] dE Post MD [facility] [place] [address] Arthroplasty of the knee (Primary Dx) Social [...] Office Visit Psychiatry [place] [address] Simona Harper, PhD documented as of this encounter Visit Diagnoses Diagnosis Arthroplasty of the knee- Primary Knee joint replacement by other means documented in this encounter Care Teams Safety Instructor Relationship Specialty Start Date End Date Diana Weaver MD [address] [place] [address] PCP - General 05/22/10 09/11/17 documented as of this encounter
--- OUTSIDE RECORDS SUMMARY | 2024-05-10 18:27 | XMS_ITS | Encounter Summary ---
Author Organization [facility] [place] [address] Care Team Providers Care Freelance Art Director Name Role Phone Diana Weaver MD Primary Care Provider Encounter Details Date Type Department Care Team (Late st Contact Info) Description 05/09/2010 [place] [address] aRkel Post MD [facility] [place] [address] Social History Tobacco Use Types Packs/Day Years [...] Office Visit Psychiatry [place] [address] Simona Harper, PhD documented as of this [...] 5:59 AM EST 05/14/2010 6:25 AM EST Rakel Post MD CHEMISTRY ORDERABLES [facility] * CREATININE, SERUM (05/14/2010 5:59 AM EST) [...] 5:59 AM EST 05/14/2010 6:25 AM EST Rakel Post MD CHEMISTRY ORDERABLES Performing Organization Address [facility] de Phone Number [facility] * BUN (05/14/2010 5:59 AM EST) Blood Urea Nitrogen 12 10 - 20 mg/dL [facility] Blood specimen (specimen) 05/14/2010 5:59 AM EST 05/14/2010 6:25 AM EST Rakel Post MD CHEMISTRY ORDERABLES Performing Organization Address [facility] Co de Phone Number [facility] * (ABNORMAL) PROTIME-INR (05/14/2010 5:59 AM EST) Prothrombin Time 47.8(H) 11.8 - 15.0 sec [facility] Comment: [facility] Transfusion Committee Guidelines: INR less than 2.0, PTT less than OR equal to 43.5 seconds, or Fibrinogen greater than or equal to 100 mg/dl indicate adequate procoagulant activity for hemostasis in patients without underlying bleeding disorders. International Normalization Ratio 4.8(H) 0.9 - 1.1 [facility] Blood specimen (specimen) 05/14/2010 5:59 AM EST 05/14/2010 6:25 AM EST Rakel Post MD HEMATOLOGY ORDERABLE S [facility]LEX[facility] * (ABNORMAL) REFLEX LAB-A-DIFF (05/14/2010 5:59 AM [...] 5:59 AM EST 05/14/2010 6:25 AM EST Rakel Post MD HEMATOLOGY ORDERABLE S Performing Organization Address [facility]/State/ZIP Co de Phone Number [facility] * (ABNORMAL) CBC (05/14/2010 5:59 AM EST) [...] 5:59 AM EST 05/14/2010 6:25 AM EST Rakel Post MD HEMATOLOGY ORDERABLE S [facility] * (ABNORMAL) PROTIME-INR (05/13/2010 6:28 AM EST) Prothrombin Time 37.2(H) 11.8 - 15.0 sec [facility] Comment: [facility] Transfusion Committee Guidelines: INR less than 2.0, PTT less than OR equal to 43.5 seconds, or Fibrinogen greater than or equal to 100 mg/dl indicate adequate procoagulant activity for hemostasis in patients without underlying bleeding disorders. International Normalization Ratio 3.6(H) 0.9 - 1.1 [facility] Blood specimen (specimen) 05/13/2010 6:28 AM EST 05/13/2010 6:54 AM EST Rakel Post MD HEMATOLOGY ORDERABLE S EDUARDO DIAZ * (ABNORMAL) PROTIME-INR (05/12/2010 7:45 AM EST) Prothrombin Time 28.9(H) 11.8 - 15.0 sec [facility] Comment: [facility] Transfusion Committee Guidelines: INR less than 2.0, PTT less than OR equal to 43.5 seconds, or Fibrinogen greater than or equal to 100 mg/dl indicate adequate procoagulant activity for hemostasis in patients without underlying bleeding disorders. International Normalization Ratio 2.6(H) 0.9 - 1.1 [facility] Blood specimen (specimen) 05/12/2010 7:45 AM EST 05/12/2010 8:10 AM EST Rakel Post MD HEMATOLOGY ORDERABLE S Performing Organization Address [facility] Co de Phone Number EDUARDO DIAZ * CREATININE, [...] 4:50 AM EST 05/11/2010 5:13 AM EST Rakel Post MD CHEMISTRY ORDERABLES Performing Organization Address [facility] de Phone Number [facility] FLEXENNI[facility] * BUN (05/11/2010 4:50 AM EST) Blood Urea Nitrogen 10 10 - 20 mg/dL [facility] Blood specimen (specimen) 05/11/2010 4:50 AM EST 05/11/2010 5:13 AM EST Rakel Post MD CHEMISTRY ORDERABLES Performing Organization Address [facility] de Phone Number [facility] * ELECTROLYTE PANEL (05/11/2010 4:50 AM EST) [...] 4:50 AM EST 05/11/2010 5:13 AM EST Rakel Post MD CHEMISTRY ORDERABLES Performing Organization Address [facility]/ZIP Co de Phone Number [facility] * (ABNORMAL) PROTIME-INR (05/11/2010 4:50 AM EST) Prothrombin Time 23.6(H) 11.8 - 15.0 sec [facility]ILL[facility] Comment: [facility] Transfusion Committee Guidelines: INR less than 2.0, PTT less than OR equal to 43.5 seconds, or Fibrinogen greater than or equal to 100 mg/dl indicate adequate procoagulant activity for hemostasis in patients without underlying bleeding disorders. International Normalization Ratio 2.0(H) 0.9 - 1.1 [facility] Blood specimen (specimen) 05/11/2010 4:50 AM EST 05/11/2010 5:13 AM EST Rakel Post MD HEMATOLOGY ORDERABLE S Performing Organization Address [facility] Co de Phone Number [facility] * (ABNORMAL) REFLEX LAB-A-DIFF (05/11/2010 4:50 AM [...] 4:50 AM EST 05/11/2010 5:13 AM EST Rakel Post MD HEMATOLOGY ORDERABLE S Performing Organization Address City/State/[facility] Co de Phone Number [facility] * (ABNORMAL) CBC (05/11/2010 4:50 AM EST) [...] 4:50 AM EST 05/11/2010 5:13 AM EST Rakel Post MD HEMATOLOGY ORDERABLE S Performing Organization Address City/State/[facility] de Phone Number EDUARDO MCCORDENNIUM * (ABNORMAL) ELECTROLYTE PANEL (05/10/2010 9:50 AM [...] 9:50 AM EST 05/10/2010 10:04 AM EST Rakel Post MD CHEMISTRY ORDERABLES Performing Organization Address [facility] de Phone Number EDUARDO PICKENSIUM * CREATININE, SERUM (05/10/2010 9:50 AM EST) [...] 9:50 AM EST 05/10/2010 10:04 AM EST Rakel Post MD CHEMISTRY ORDERABLES [facility] * BUN (05/10/2010 9:50 AM EST) Blood Urea Nitrogen 11 10 - 20 mg/dL [facility] Blood specimen (specimen) 05/10/2010 9:50 AM EST 05/10/2010 10:04 AM EST Rakel Post MD CHEMISTRY ORDERABLES [facility] * REFLEX LAB-A-DIFF (05/10/2010 9:50 [...] 9:50 AM EST 05/10/2010 10:04 AM EST Rakel Post MD HEMATOLOGY ORDERABLE S [facility]ILL[facility] * (ABNORMAL) CBC (05/10/2010 9:50 AM EST) [...] 9:50 AM EST 05/10/2010 10:04 AM EST Rakel Post MD HEMATOLOGY ORDERABLE S Performing Organization Address [facility] de Phone Number EDUARDO DIAZ * (ABNORMAL) PROTIME-INR (05/10/2010 7:59 AM EST) Prothrombin Time 23.0(H) 11.8 - 15.0 sec [facility] MILLENNI[facility] Comment: [facility] Transfusion Committee Guidelines: INR less than 2.0, PTT less than OR equal to 43.5 seconds, or Fibrinogen greater than or equal to 100 mg/dl indicate adequate procoagulant activity for hemostasis in patients without underlying bleeding disorders. International Normalization Ratio 2.0(H) 0.9 - 1.1 [facility] MILLEN[facility] Blood specimen (specimen) 05/10/2010 7:59 AM EST 05/10/2010 8:07 AM EST Rakel Post MD HEMATOLOGY ORDERABLE S Performing Organization Address [facility] Phone Number EDUARDO DIAZ * (ABNORMAL) ELECTROLYTE PANEL (05/09/2010 7:08 AM [...] 7:08 AM EST 05/09/2010 7:22 AM EST Rakel Post MD CHEMISTRY ORDERABLES Performing Organization Address [facility] de Phone Number EDUARDO PICKENSIUM * CREATININE, SERUM (05/09/2010 7:08 AM EST) Creatinine 0.85 0.80 - 1.50 mg/dL [facility] Est Glomerular Filtration Rate >60 >=60 CERNER [...] 7:08 AM EST 05/09/2010 7:22 AM EST Rakel Post MD CHEMISTRY ORDERABLES Performing Organization Address [facility] Co de Phone Number [facility] * BUN (05/09/2010 7:08 AM EST) Blood Urea Nitrogen 11 10 - 20 mg/dL [facility] Blood specimen (specimen) 05/09/2010 7:08 AM EST 05/09/2010 7:22 AM EST Rakel Post MD CHEMISTRY ORDERABLES Performing Organization Address [facility]/ZIP Co de Phone Number [facility]ER MILLENNIUM * (ABNORMAL) APTT (05/09/2010 7:08 AM EST) Partial Thromboplastin Time 42(H) 25 - 37 sec [facility] Comment: Recommended therapeutic PTT range for full dose unfractionated heparin is 80-114 seconds. Blood specimen (specimen) 05/09/2010 7:08 AM EST 05/09/2010 7:22 AM EST Rakel Post MD HEMATOLOGY ORDERABLE S Performing Organization Address City/[facility]/ZIP Co de Phone Number [facility] * (ABNORMAL) PROTIME-INR (05/09/2010 7:08 AM EST) Prothrombin Time 17.5(H) 11.8 - 15.0 sec [facility] Comment: [facility] Transfusion Committee Guidelines: INR less than 2.0, PTT less than OR equal to 43.5 seconds, or Fibrinogen greater than or equal to 100 mg/dl indicate adequate procoagulant activity for hemostasis in patients without underlying bleeding disorders. International Normalization Ratio 1.4(H) 0.9 - 1.1 [facility] Blood specimen (specimen) 05/09/2010 7:08 AM EST 05/09/2010 7:22 AM EST Rakel Post MD HEMATOLOGY ORDERABLE S Performing Organization Address City/[facility]/ZIP Co de Phone Number [facility] * (ABNORMAL) REFLEX LAB-A-DIFF (05/09/2010 7:08 AM EST) Neutrophil % 60.5 34.0 - 71.0 % [facility] Neutrophil Absolute 3.83 1.50 - 6.30 x10(3)/mc L [facility] MILLENNIUM Lymph % 25.3 19.0 - 53.0 % [facility] MILLENNIUM Lymphocytes Abs 1.6 1.0 - 3.6 x10(3)/mc L [facility] Monocyte % 13.6(H) 4.0 - 13.0 % [facility] MILLENNIUM Monocyte Abs 0.9 0.2 - 1.0 [...] 7:08 AM EST 05/09/2010 7:22 AM EST Rakel Post MD HEMATOLOGY ORDERABLE S [facility]CCORDENNIUM [...] Standard Deviation 50.0(H) 35.0 - 46.0 fL [facility] RDW coefficient of variation 14.7(H) 10.9 - 14.4 % [facility] Mean Platelet Volume 9.7 9.0 - 12.0 fL [facility] Blood specimen (specimen) 05/09/2010 7:08 AM EST 05/09/2010 7:22 AM EST Rakel Post MD HEMATOLOGY ORDERABLE S [facility] * PATHOLOGY SURGICAL PATHOLOGY FINAL REPORT (05/08/2010 9:52 AM EST) Surgical Pathology Report ? [facility] ? Provider: ?? RAKEL POST ?? Pt. Name: ?? ALVIN PADGETT ? Acc #: ?[id number] ?Pt. ? Col Date: ?? 05/08/2010 ? [...] ? Clinical Diagnosis: ? DJD bilateral knees EDUARDO DIAZ 05/08/2010 9:52 AM EST Rakel Post MD PATHOLOGY/CYTOLOGY O RDERABLES EDUARDO DIAZ documented in this encounter Visit Diagnoses Not on filedocumented in this encounter Care Teams Freelance Art Director Relationship Specialty Start Date End Date Diana Weaver MD [address] [place] [address] PCP - General 05/22/10 09/11/17 documented as of this encounter
--- OUTSIDE RECORDS SUMMARY | 2024-05-10 18:27 | XMS_ITS | Encounter Summary ---
Author Organization [facility] Address [address] [place] [address] Care Team Providers Care Health Care Aide Name Role Phone Unknown, Provider Primary Care Provider Unaval ildanny Encounter Details Date Type Department Care Team (Late st Contact Info) Description 12/19/2022 Lab Requisition [facility] Pathology & Laboratory Medicine - [address] [address] Conrado Ron MD [address] [place] [address], [address] [place], [place] [id number] Other constipation Social History Tobacco Use Types [...] management options, if applicable. 12/23/2022 15:14 EDT [facility] Final Diagnosis A. COLON, RANDOM, BIOPSY: - Colonic mucosa with no specific pathologic features. B. COLON, 60 CM, POLYP, BIOPSY: - Tubular adenoma. C. COLON, 35 CM, POLYP, BIOPSY: - Tubular adenoma. 12/23/2022 15:14 [facility] Attestation By the signature below, the attending physician certifies that they have 1) personally conducted a gross and/or microscopic examination of the described specimen(s), and/or personally interpreted the results of laboratory testing of the described specimen(s), and 2) personally rendered or confirmed the above diagnosis. 12/23/2022 15:14 [facility] at 1514 Clinical History H/O of polyps, chronic constipation 12/23/2022 15:14 [facility] Gross Description A. [...] processing. Sandra Ellis 12/20/2022 8:03 12/23/2022 15:14 [facility] Performing Lab [facility] 12/23/2022 15:14 [facility] Scanned Images 12/23/2022 15:14 [facility] Tissue ENTIRE COLON / Unknown 12/19/2022 10:20 EDT 12/19/2022 18:08 EDT Tissue specimen (specimen) COLON STRUCTURE / Unknown 12/19/2022 10:20 EDT 12/19/2022 18:08 EDT Tissue specimen (specimen) COLON STRUCTURE / Unknown 12/19/2022 10:20 EDT 12/19/2022 18:08 EDT us Conrado Ron MD PATHOLOGY ORDERABLES Final Resu lt [facility] [address] [place] [address] documented in this encounter Visit Diagnoses Diagnosis Other constipation documented in this encounter Care Teams Health Care Aide Relationship Specialty Start Date End Date Unknown, Provider, PCP - General 06/16/09 documented as of this encounter
--- OUTSIDE RECORDS SUMMARY | 2024-05-10 18:27 | XMS_ITS | Encounter Summary ---
Author Organization [facility] Address [facility] [place] [address] Care Team Providers Care Php Consultant Name Role Phone Diana Weaver MD Primary Care Provider [phone] Reason for Visit * Reason Comments Genital Warts Encounter Details Date Type Department Care Team (Late st Contact Info) Description 01/10/2011 1:00 PM EDT Office [place] [address] Jesse Hu III, MD [facility] [place] [address] Pain (Primary Dx); Condyloma; Erectile dysfunction Discharge [...] treated with Dr. Julio C Young at [facility]. Dr. Young has treated him for a [...] Office Visit Psychiatry and [place] [address] Simona Harper, PhD documented as of this encounter Visit Diagnoses Diagnosis Pain- Primary Generalized pain Condyloma Condyloma acuminatum Erectile dysfunction Impotence of organic origin documented in this encounter Care Teams Php Consultant Relationship Specialty Start Date End Date Diana Weaver MD [address] [place] [address] PCP - General 05/22/10 09/11/17 documented as of this encounter
--- OUTSIDE RECORDS SUMMARY | 2024-05-10 18:27 | XMS_ITS | Encounter Summary ---
Author Organization [facility] Address [facility] [place] [address] Care Team Providers Care Dietetics Director Name Role Phone Diana Weaver MD Primary Care Provider Reason for Visit * Reason Comments Bilateral Shoulder Pain Encounter Details Date Type Department Care Team (Late st Contact Info) Description 05/16/2011 8:00 AM EST Office [place] [address] Patel Arevalo, PT [facility] PHYSICAL MEDICINE & [place] [address] Diana Weaver MD [address] [place] [address] Rotator cuff disorder bilateral (L>R) Discharge Disposition: [...] 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 He was instructed in therapeutic exercise 15 [...] program. 2. Improve posture and body shop manager awareness. PT shelter goals : 1. Improve strength of rotator [...] Office Visit Psychiatry [place] [address] Simona Harper, PhD documented as of this encounter Visit Diagnoses Diagnosis Rotator cuff disorder bilateral (L>R) Disorders of bursae and tendons in shoulder region, unspecified documented in this encounter Care Teams Dietetics Director Relationship Specialty Start Date End Date Diana Weaver MD [address] [place] [address] PCP - General 05/22/10 09/11/17 documented as of this encounter
--- OUTSIDE RECORDS SUMMARY | 2024-05-10 18:27 | XMS_ITS | Encounter Summary ---
Author Organization [facility] Address [address] [place] [address] Care Team Providers Care Stone And Concrete Washer Name Role Phone Unknown, Provider Primary Care Provider Unava ilable Encounter Details Date Type Department Care Team (Late st Contact Info) Description 01/18/2005 Results Only [facility] [address] [place] [address] Roger Pickering MD [address] [place] [address] Social History Tobacco Use Types Packs/Day Years [...] ? ALVIN CAT ? Accession #: ? [id number] ? : ? 1945 (Age: 59) ??M [...] [facility] [place] 01/18/2005 01/18/2005 15: 32 EDT us Roger Pickering MD PATHOLOGY ORDERABLES Final Result [facility] [address] [place] [address] documented in this encounter Visit Diagnoses Not on filedocumented in this encounter Care Teams Stone And Concrete Washer Relationship Specialty Start Date End Date Unknown, Provider, PCP - General 06/16/09 documented as of this encounter
--- OUTSIDE RECORDS SUMMARY | 2024-05-10 18:27 | XMS_ITS | Encounter Summary ---
Author Organization [facility] Address [address] [place] [address] Care Team Providers Care Bedspread Seamer Name Role Phone Unknown, Provider Primary Care Provider Yudelka ruiz Encounter Details Date Type Department Care Team (Late st Contact Info) Description 11/21/2020 Lab Requisition [facility] Pathology & Laboratory Medicine - [address] [id number] Outr Resulting Lab, Provider Social History Tobacco [...] 0.0 - 6.5 ng/mL 11/21/2020 22:37 EDT [facility] Blood VENOUS BLOOD / Unknown 11/21/2020 9:23 EDT 11/21/2020 21:36 EDT Narrative [facility] - 11/21/2020 22:37 EDT NOTE: Serum PSA concentration should not be interpreted as absolute evidence for the presence or absence of malignant disease. Assayed on Siemens ADVIA iFrat Warsaur XPT using chemiluminescent technology.??Values obtained by using different assay methods cannot be used interchangeably. us Provider Outr Resulting Lab CHEMISTRY & BLOOD GA S ORDERABLES Final Result [facility] [address] [place] [address] documented in this encounter Visit Diagnoses Not on filedocumented in this encounter Care Teams Bedspread Seamer Relationship Specialty Start Date End Date Unknown, Provider, PCP - General 06/16/09 documented as of this encounter
--- OUTSIDE RECORDS SUMMARY | 2024-05-10 18:27 | XMS_ITS | Encounter Summary ---
Author Organization [facility] Address [address] [place] [address] Care Team Providers Care Braille Proofreader Name Role Phone Unknown, Provider Primary Care Provider Unava ilable Encounter Details Date Type Department Care Team (Late st Contact Info) Description 10/24/2003 Results Only [facility] - Maple conversion [address] [place] [address] Roger Pickering MD [address] [place] [address] Social History Tobacco Use Types Packs/Day Years [...] ? ALVIN CAT ? Accession #: ? [id number] ? : ? 1945 (Age: 58) ??M [...] levels have been examined on (A). (Dr. Chan)/[facility] Document reviewed and electronically signed by: Katherine [...] LYN TIPTON 10/24/2003 10/24/2003 15: 13 EDT us Roger Pickering MD PATHOLOGY ORDERABLES Final Result [facility] [address] [place] [address] documented in this encounter Visit Diagnoses Not on filedocumented in this encounter Care Teams Braille Proofreader Relationship Specialty Start Date End Date Unknown, Provider, PCP - General 06/16/09 documented as of this encounter
--- OUTSIDE RECORDS SUMMARY | 2024-05-10 18:27 | XMS_ITS | Encounter Summary ---
Author Organization [facility] [place] [address] Care Team Providers Care Employment Security Officer Name Role Phone Diana Weaver MD Primary Care Provider [phone] Encounter Details Date Type Department Care Team (Late st Contact Info) Description 11/13/2010 Orders [place] [address] Ed Post MD [facility] [place] [address] Arthroplasty of the knee (Primary Dx) Social [...] Office Visit Psychiatry [place] [address] Simona Harper, PhD documented as of this encounter Visit Diagnoses Diagnosis Arthroplasty of the knee- Primary Knee joint replacement by other means documented in this encounter Care Teams Employment Security Officer Relationship Specialty Start Date End Date Diana Weaver MD [address] [place] [address] PCP - General 05/22/10 09/11/17 documented as of this encounter
--- OUTSIDE RECORDS SUMMARY | 2024-05-10 18:27 | XMS_ITS | Encounter Summary ---
Author Organization [facility] Address [facility] [place] [address] Care Team Providers Care Hand I Cutter Name Role Phone Diana Weaver MD Primary Care Provider [phone] Encounter Details Date Type Department Care Team (Late st Contact Info) Description 04/19/2011 Orders Only [place] [address] Oliver Carter MD [facility] [address] [place] [address] Left shoulder pain (Primary Dx) Social History [...] Office Visit Psychiatry [place] [address] Simona Harper, PhD documented as of this encounter Visit Diagnoses Diagnosis Left shoulder pain- Primary Pain in joint, shoulder region documented in this encounter Care Teams Hand I Cutter Relationship Specialty Start Date End Date Diana Weaver MD [address] [place] [address] PCP - General 05/22/10 09/11/17 documented as of this encounter
--- OUTSIDE RECORDS SUMMARY | 2024-05-10 18:27 | XMS_ITS | Encounter Summary ---
Author Organization [facility] Address [place] [address] Care Team Providers Care Jig Builder Name Role Phone Diana Weaver MD Primary Care Provider Encounter Details Date Type Department Care Team (Late st Contact Info) Description 05/16/2011 7:50 AM EST - 05/16/2011 11:59 PM EST Hospital Encounter XRay at [address] [place] [address] Shoulder pain Social History Tobacco Use Types [...] Office Visit Psychiatry [place] [address] Simona Harper, PhD documented as [...] region documented in this encounter Care Teams Jig Builder Relationship Specialty Start Date End Date Diana Weaver MD [address] [place] [address] PCP - General 05/22/10 09/11/17 documented as of this encounter
--- OUTSIDE RECORDS SUMMARY | 2024-05-10 18:27 | XMS_ITS | Encounter Summary ---
Author Organization [facility] [place] [address] Care Team Providers Care Crate Opener Name Role Phone Diana Weaver MD Primary Care Provider [phone] Encounter Details Date Type Department Care Team (Late st Contact Info) Description 04/12/2010 [place] [address] Ed Post MD [facility] [place] [address] Social History Tobacco Use Types Packs/Day Years [...] Office Visit Psychiatry [place] [address] Simona Harper, PhD documented as of this [...] EDT) Urine Culture ? Patient Name: ALVIN PADGETT ? Ordered By: ED POST ? MR#: [id number] ?LOC: ??4V ? /Sex: ?? 5 (64 [...] Post MD MICROBIOLOGY - GENER AL ORDERABLES Performing Organization Address City/[facility]/ZIP Co de Phone Number [facility] * URINALYSIS WITH MICROSCOPIC (04/12/2010 1:15 PM EDT) Pathologist [facility] Glucose, Urine Dipstick Negative Negative mg/dL CERNER [...] Urine Dipstick Clear Clear CERNER MILLENNIUM Specific [place] Urine Automated 1.008 CERNER MILLENNIUM Color, Urine Dipstick Yellow Yellow CERNER MILLENNIUM RBC, Urine Not Present 0 - 3 CERNER MILLENNIUM WBC, Urine Not Present 0 - 3 CERNER MILLENNIUM Urine specimen (specimen) 04/12/2010 1:15 PM EDT 04/12/2010 1:30 PM EDT Ed Post MD URINE ORDERABLES Performing Organization Address City/[facility]/ZIP Co de Phone Number [facility] * REFLEX LAB-ANTIBODY SCREEN (04/12/2010 12:48 PM EDT) Ab Screen Interp Negative [facility] M[facility] Expires at [id number] on: [id number] [facility] M[facility] Blood specimen (specimen) 04/12/2010 12:48 PM EDT 04/12/2010 1:30 PM EDT Ed Post MD BLOOD BANK LAB ORDER [facility] * REFLEX LAB-ABO/RH (04/12/2010 12:48 PM EDT) Pathologist [facility] ABORH Type B Pos [facility] MILL[facility] Blood specimen (specimen) 04/12/2010 12:48 PM EDT 04/12/2010 1:30 PM EDT Ed Post MD BLOOD BANK LAB ORDER NANDO Performing Organization Address City/[facility]/ZIP Co de Phone Number [facility] * ELECTROLYTE PANEL (04/12/2010 12:48 PM EDT) Pathologist [facility] Sodium 139 135 - 145 mmol/L [facility] MILLENNIUM Potassium 4.7 3.5 - 5.0 mmol/L [facility] MILLENNIUM Comment: Please note: ??Patients with WBC >100,000 may have falsely elevated Potassium levels. ??For accurate Potassium quantification in these patients send serum separator tube (gold top) for subsequent determinations. ??Contact the Clinical Chemistry Laboratory if there are any questions. Chloride 100 98 - 107 mmol/L [facility] MILLENNIUM Carbon Dioxide 29 22 - 31 mmol/L CERNER MILLENNIUM Anion Gap 10 5 - 15 mmol/L [facility] MILL[facility] Blood specimen (specimen) 04/12/2010 12:48 PM EDT 04/12/2010 1:30 PM EDT Ed Post MD CHEMISTRY ORDERABLES [facility] * CREATININE, SERUM (04/12/2010 12:48 PM EDT) Pathologist [facility] Creatinine 1.08 0.80 - 1.50 mg/dL CERNER [...] Post MD CHEMISTRY ORDERABLES Performing Organization Address City/[facility]/ZIP Co de Phone Number EDUARDO PICKENSIUM * BUN (04/12/2010 12:48 PM EDT) Blood Urea Nitrogen 15 10 - 20 mg/dL CERCAMILA TistagamesENNIUM Blood specimen (specimen) 04/12/2010 12:48 PM EDT 04/12/2010 1:30 PM EDT Ed Post MD CHEMISTRY ORDERABLES EDUARDO PICKENSIUM * GLUCOSE, RANDOM (04/12/2010 12:48 PM EDT) Glucose 96 <=199 mg/dL [facility] Comment:Diabetes: >=200 mg/d L plus symptoms Blood specimen (specimen) 04/12/2010 12:48 PM EDT 04/12/2010 1:30 PM EDT Ed Post MD CHEMISTRY ORDERABLES Performing Organization Address [facility] de Phone Number EDUARDO DIAZ * PROTIME-INR (04/12/2010 12:48 PM EDT) Prothrombin Time 13.3 11.8 - 15.0 sec [facility] Comment: [facility] Transfusion Committee Guidelines: INR less than 2.0, PTT less than OR equal to 43.5 seconds, or Fibrinogen greater than or equal to 100 mg/dl indicate adequate procoagulant activity for hemostasis in patients without underlying bleeding disorders. International Normalization Ratio 1.0 0.9 - 1.1 [facility] Blood specimen (specimen) 04/12/2010 12:48 PM EDT 04/12/2010 1:30 PM EDT Ed Post MD HEMATOLOGY ORDERABLE S Performing Organization Address [facility] Phone Number EDUARDO DIAZ * REFLEX LAB-A-DIFF [...] EDT Ed Post MD HEMATOLOGY ORDERABLE S CERNER MILLENNIUM * (ABNORMAL) CBC (04/12/2010 12:48 PM [...] Ed Post MD HEMATOLOGY ORDERABLE S EDUARDO DIAZ documented in this encounter Visit Diagnoses Not on filedocumented in this encounter Care Teams Crate Opener Relationship Specialty Start Date End Date Diana Weaver MD [address] [place] [id number] PCP - General 05/22/10 09/11/17 documented as of this encounter
--- OUTSIDE RECORDS SUMMARY | 2024-05-10 18:27 | XMS_ITS | Encounter Summary ---
Author Organization [facility] Address [address] [place] [address] Care Team Providers Care Coater Helper Name Role Phone Unknown, Provider Primary Care Provider Unava ilable Encounter Details Date Type Department Care Team (Late st Contact Info) Description 11/14/2003 Results Only [facility] [address] [place] [address] Roger Pickering MD [address] [place] [id number] Social History Tobacco Use Types Packs/Day Years [...] ? ALVIN CAT ? Accession #: ? [id number] ? : ? 1945 (Age: 58) ??M [...] have been examined on specimen (A). ??(Dr. Patel)/[facility] Document reviewed and electronically signed by: Ganga Rivas MD Report ??Date: 11/18/2003 11:39 By the signature above, the attending physician certifies that he/she has personally conducted a gross and/or microscopic examination of the described specimens and rendered or confirmed the above diagnosis. Specimen(s) Received: A. ?Rectal bx ??10 cm B. ?Bx #2 @ 15 cm Clinical History: ? Rectal polyps, intramucosal adenoCa (see [id number]),#2 is probable site of polyp Gross Description: [...] LYN TIPTON 11/14/2003 11/15/2003 15: 22 EDT us Roger Pickering MD PATHOLOGY ORDERABLES Final Result Performing Organization Address City/State/[facility] Co de Phone Number LYN TIPTON [address] [place] [address] documented in this encounter Visit Diagnoses Not on filedocumented in this encounter Care Teams Coater Helper Relationship Specialty Start Date End Date Unknown, Provider, PCP - General 06/16/09 documented as of this encounter
== END 2024-05-10 18:23 | disposition home or self-care (01) ==
LOC: NCHCN 18:22
PROVIDERS: PCP Family Medicine; Visit Provider Family Medicine
DX: I10 Essential (primary) hypertension (principal)
CPT/HCPCS: 80053; 85027; 84443

== ENCOUNTER 2024-11-10 13:36 | Outpatient (REF) | payer MEDICARE, SELFPAY ==
[2024-11-10 18:20] LABS: Anion Gap 8.2 mmol/L (3-11); BUN 17 mg/dL (7-18); CO2 28.8 mmol/L (21.0-32.0); CREATININE 1.5 mg/dL (0.70-1.30); Calcium 9.5 mg/dL (8.5-10.1); Chloride 103 mmol/L (98-107); Estimated GFR 47.06 (mL/min/1.73m2); Glucose 86 mg/dL (74-106); Potassium 4.6 mmol/L (3.5-5.1); Sodium 140 mmol/L (136-145)
== END 2024-11-10 13:37 | disposition home or self-care (01) ==
LOC: NCHCN 13:36
PROVIDERS: PCP Family Medicine; Visit Provider Family Medicine
DX: N18.31 Chronic kidney disease, stage 3a (principal)
CPT/HCPCS: 80048

== ENCOUNTER 2024-11-18 02:35 | Outpatient (CLI) | payer MEDICARE, SELFPAY ==
--- NOTE | 2024-11-18 07:00 | DI.MRI_ITS ---
Exam(s) MR LUMBAR SPINE WO EXAM: MR LUMBAR SPINE WO CLINICAL HISTORY: Pain,SPINAL STENOSIS, M48.062. TECHNIQUE: Multiplanar multisequence MRI of the Lumbar spine was performed. COMPARISON: CR XR LUMBAR SPINE COMPLETE from 06/17/2022 MR MR LUMBAR SPINE WO from 03/12/2024 FINDINGS: Bones: The last intervertebral disc space is designated the L5/S1 level for the numbering purpose of this examination. The vertebral body heights are well maintained. There is grade 1 anterolisthesis of L4 on L5. This marrow signal is unchanged compared to the prior examination. There are degenerati ve endplate signal changes seen particularly at the L1-L2 level. Cord: The conus tip ends at the L1 level. It is of normal size and signal intensity. T12-L1: There is a mild diffuse disc bulge. No central spinal canal or neural foraminal stenosis. L1-2: No disc herniations or bulges are present. No central spinal canal or neural foraminal stenosis . L2-3: There is a diffuse disc bulge. It is asymmetric to the right. There is no central spinal canal or left neural foraminal stenosis. There is moderately severe right neural foraminal stenosis. L3-4: There is a diffuse disc bulge. There are hypertrophic changes of the facets and ligamentum flav um. These all contribute to cause marked central spinal canal stenosis. There is moderate bilateral n eural foraminal stenosis. L4-5: There is a diffuse disc bulge. There is grade 1 anterolisthesis of L4 on L5. There are degenera tive changes of the facets and hypertrophy of the ligamentum flavum. These all contribute to cause ma rked central spinal canal stenosis.There is moderate right and mild left neural foraminal stenosis. L5-S1: There is a mild diffuse disc bulge. There is a 0.5 x 0.6 x 1 cm synovial cyst arising from the right facet joint number checking into the spinal canal. It causes mild displacement of the right S1 and S2 nerve roots. No significant central spinal canal stenosis is seen. There is no significant ne ural foraminal stenosis. Soft tissues: The visualized SI joints and sacrum are well maintained. The paraspinal soft tissues ar e unremarkable. Visualized abdominal organs: There are bilateral simple renal cysts present. No follow-up is recommen ded. IMPRESSION: 1. Marked degenerative changes seen at L3-4 causing marked central spinal canal stenosis. 2. Degenerative changes and anterolisthesis at L4-5 causing marked central spinal canal stenosis. 3. Multilevel degenerative changes in the lumbar spine causing central spinal canal and neural forami nal stenosis as described above. DATA REPOSITORY:
== END 2024-11-18 02:55 ==
LOC: DI 02:35
PROVIDERS: PCP Family Medicine; Visit Provider Anesthesiology Pain Medicine
DX: M48.062 Spinal stenosis, lumbar region with neurogenic claudication (principal)
CPT/HCPCS: 72148

== ENCOUNTER 2024-11-29 10:16 | Outpatient (CLI) | payer MEDICARE, SELFPAY ==
--- NOTE | 2024-11-29 | DI.RAD_ITS ---
Exam(s) XR LUMBAR SPINE AP, LAT EXAM: XR LUMBAR SPINE AP, LAT CLINICAL HISTORY: LOW BACK PAIN, ASSESS MOBILITY, LUMBAR SPONDYLOSIS, M47.816. TECHNIQUE: 2D digital imaging was performed of the lumbar spine. Three images were obtained. AP, f lexion and extension views were obtained. COMPARISON: CR ABD FLAT UPRIGHT PA CHEST from 08/17/2013 CR XR LUMBAR SPINE COMPLETE from 06/17/2022 MR MR LUMBAR SPINE WO from 11/18/2024 FINDINGS: BONES: No fracture or destructive lesion. Endplate osteophytes are seen at multiple levels particular ly at L1-2 and L2 L3. Degenerative facet arthropathy is present particularly from L2-3 through L5-S1. DISKS: There is disc space narrowing at L1-L2 and L2-L3. ALIGNMENT: There is a slightly more pronounced left convex lumbar scoliosis. There is grade 1 umair listhesis of L4 on L5 which appears stable. This does not change with flexion or extension. SOFT TISSUE: Atherosclerotic calcification is present. IMPRESSION: 1. Stable grade 1 anterolisthesis of L4 on L5 which does not change with flexion or extension. 2. Degenerative changes seen throughout the lumbar spine. 3. Slight progression of the left convex lumbar scoliosis. DATA REPOSITORY: RADIATION DOSE DELIVERED:
== END 2024-11-29 10:36 ==
LOC: DI 10:16
PROVIDERS: PCP Family Medicine; Visit Provider Neurological Surgery
DX: M47.816 Spondylosis without myelopathy or radiculopathy, lumbar region (principal); M41.57 Other secondary scoliosis, lumbosacral region
CPT/HCPCS: 72100

== ENCOUNTER 2024-12-06 01:56 | Outpatient (CLI) | payer MEDICARE, SELFPAY ==
--- NOTE | 2024-12-06 | DI.MRI_ITS ---
Exam(s) MR LOWER JOINT RT WO EXAM: MR LOWER JOINT RT WO CLINICAL HISTORY: RT HIP PAIN, M25.551 TECHNIQUE: Multiplanar multisequence MRI of the hip was performed. COMPARISON: CR ABD FLAT UPRIGHT PA CHEST from 08/17/2013 CR XR HIP RT COMPLETE AP PELVIS from 06/17/2022 FINDINGS: MARROW:There is no evidence of fracture, bone contusion, nor avascular necrosis. There is a well-defined non expansile bone lesion in the left iliac bone adjacent to the sacroiliac j oint which measures 2.0 x 1.4 cm and is mildly hypointense on T1 and is bright on STIR images and is not associated with surrounding bone edema. Not aggressive appearing. The adjacent SI joint appears u nremarkable. There are no other bone lesions evident. HIP JOINT SPACE: No hip joint effusion nor loose intra-articular bodies. There are moderate degenerat lisa changes in the hip joint. There are degenerative subarticular cysts in the superolateral aspect o f the right hip acetabulum.. There is no hypertrophy of the ligamentum teres nor signal abnormality a t the fovea centralis. LABRUM: There is a tear in the anterior superior labrum. There is an adjacent septated paralabral cys t measuring 9 x 6 mm. BURSAE: There is a small amount of fluid in the trochanteric bursa and a focus of signal dropout at t his level measuring 2 mm; probably para osseous calcification. There is no evidence of iliopsoas bur sitis. TENDONS: There is mild tendinitis signal in the gluteus medius tendon. ISCHIAL TUBEROSITY/HAMSTRING: There is increased signal in the common hamstrings insertion tendon on the right ischial tuberosity consistent with tendinitis and partial tearing. There is no marrow edema at the level the ischial tuberosity. Similar findings also seen on the opposite-left side. OTHER: There is no abnormal intramuscular signal within the quadratus femoris to suggest the presence of impingement syndrome at this level. IMPRESSION: 1. Moderate osteoarthritis of the hip. No evidence of stress fracture nor avascular necrosis nor sign ificant hip joint effusion. 2. There is a tear of the superolateral aspect of the right acetabular labrum and there is a septated paralabral cyst measuring approximately 9 x 6 mm. 3. There is some tendinitis signal evident in the gluteus medius insertional aspect as well as a smal l amount of fluid in the ipsilateral trochanteric bursa. 4. There is some tendinitis signal and partial tearing at the insertional aspect of the common hands strings tendon on the ipsilateral ischial tuberosity. 5. Wide [id number] images reveal a nonspecific 2 x 1.4 cm non expansile bone lesion in the medial aspect of the left iliac bone adjacent to the left sacroiliac joint. This is relatively well-defined and there is not exhibit surrounding bone edema and is therefore most probably a nonaggressive bone l esion. Recommend whole body nuclear bone scan. DATA REPOSITORY:
--- NOTE | 2024-12-06 17:28 | DI.VRAD_ITS ---
PROCEDURE INFORMATION: Exam: MR Right Lower Extremity Joint Without Contrast; Hip Exam date and time: 12/06/2024 7:42 AM Age: 79 years old Clinical indication: Other: Pain in right glute region TECHNIQUE: Imaging protocol: Magnetic resonance imaging of the right lower extremity joint without contrast. Exam focused on the hip. Total images: 614 COMPARISON: CR XR HIP RT COMPLETE AP PELVIS 06/17/2022 11:20 AM FINDINGS: Bones/joints: 1.6 x 1.4 cm well-circumscribed mildly T1 hypointense/STIR hyperintense lesion medial left iliac bone abutting the SI joint. Otherwise no bone marrow edema. Moderate bilateral hip superior joint space narrowing. No hip effusion. Small subchondral cysts lateral right acetabulum. Labrum: Superolateral right hip labral tear associated with a 1 x 0.5 cm paralabral cyst. Soft tissues: No musculature or subcutaneous edema/lesion including attention right gluteal muscles. Reproductive: Prostatomegaly. IMPRESSION: 1. Nonspecific not overtly aggressive left iliac bone lesion. Consider bone scan correlation. 2. Right hip labral tear. 3. Bilateral hip osteoarthritis. 4. No intramuscular lesion. Dictated and Authenticated by: Devaughn Ibarra MD. Orderin Gregorio Ribeiro MD
== END 2024-12-06 02:16 ==
LOC: DI 01:56
PROVIDERS: PCP Family Medicine; Visit Provider Neurological Surgery
DX: M16.11 Unilateral primary osteoarthritis, right hip (principal); S73.191A Other sprain of right hip, initial encounter; X58.XXXA Exposure to other specified factors, initial encounter
CPT/HCPCS: 73721

== ENCOUNTER 2024-12-15 02:27 | Outpatient (CLI) | payer MEDICARE, SELFPAY ==
--- NOTE | 2024-12-15 | DI.NM_ITS ---
Exam(s) NM BONE SCAN WHOLE BODY GRP EXAM: UT BONE SCAN WHOLE BODY GRP CLINICAL HISTORY: F/U ABNL MRI, LYTIC LESION HIP,M89.8X5. TECHNIQUE: Injected Dose: 25 mCi Tc-99m MDP Delayed Images: 2-3 hours. Whole body images. Spot views of the pelvis and right foot. COMPARISON: CR XR HIP RT COMPLETE AP PELVIS from 06/17/2022 CR XR LUMBAR SPINE AP, LAT from 11/29/2024 MR MR LOWER JOINT RT WO from 12/06/2024 FINDINGS: There is scoliosis in the thoracolumbar spine. Bilateral renal excretion is identified. There is no abnormal activity in the left ilium. There is contrast within the urinary bladder which obscures visualization of the inferior sacrum. There are photopenic areas in both knees consistent with bilateral knee prostheses. There is increased activity in the right and calcaneus and talus. There are no comparison radiographs. IMPRESSION: 1. No evidence of normal activity in the left ilium to correspond with the MRI finding. 2. No abnormal activity in the right hip. 3. Abnormal increased activity in the right talus and CT and calcaneus. Plain films could be performed for further evaluation. DATA REPOSITORY:
== END 2024-12-15 02:47 ==
LOC: DI 02:27
PROVIDERS: PCP Family Medicine; Visit Provider Neurological Surgery
DX: M89.8X5 Other specified disorders of bone, thigh (principal)
CPT/HCPCS: 78306

== ENCOUNTER 2024-12-21 02:21 | Outpatient (CLI) | payer MEDICARE, SELFPAY ==
--- NOTE | 2024-12-21 | DI.RAD_ITS ---
Exam(s) XR FOOT RT COMPLETE XR HEEL RT OS CALCIS EXAM: XR FOOT RT COMPLETE CLINICAL HISTORY: F/U ABNL BONE SCAN, INCREASED ACTIVITY RT TALUS,R94.8. TECHNIQUE: 2D digital imaging was performed. Three views. COMPARISON: CR XR HEEL RT OS CALCIS from 12/21/2024 FINDINGS: BONES: No acute fracture is present. No bony destructive lesion is seen. Plantar calcaneal spur. Mild spurring at the Achilles insertion. JOINTS: No dislocation present. Mild degenerative changes of the 1st MTP joint with mild periarticular spurring. No significant hallux valgus. SOFT TISSUE: Normal vascular calcifications. IMPRESSION: Mild degenerative changes and heel spurs. DATA REPOSITORY: RADIATION DOSE DELIVERED:
== END 2024-12-21 02:41 ==
LOC: DI 02:21
PROVIDERS: PCP Family Medicine; Visit Provider Neurological Surgery
DX: R94.8 Abnormal results of function studies of other organs and systems (principal)
CPT/HCPCS: 73630; 73650

== ENCOUNTER 2025-03-15 09:57 | Outpatient (CLI) | payer MEDICARE, SELFPAY ==
[2025-03-15 09:43] VITALS: BP 145/97; PULSE 61; RESP 20; TEMP 37; O2SAT 95
--- NOTE | 2025-03-15 10:30 | DI.RAD_ITS ---
Exam(s) XR PAIN CLINIC SACRIOILIAC 2V EXAM: XR PAIN CLINIC SACRIOILIAC 2V CLINICAL HISTORY: Dx: Sacroiliac Joint Dysfunction TECHNIQUE: 2D and realtime digital imaging was performed. CONTRAST MATERIAL: Refer to procedure report. COMPARISON: No exams were available for comparison FINDINGS: Fluoroscopy was provided for Dr. Jean Baptiste during the performance of a right sacroiliac joint injection. Please refer to the procedure report for complete details. Ka,r=9.9 mGy IMPRESSION: RADIATION DOSE DELIVERED: 0.0 0.0 0
--- NOTE | 2025-03-15 10:39 | PDOC.PAIN ---
Date of service: 03/15/25 Time of Service: 11:09 Pain Managment Procedure Note Procedure Note Procedure Note: ?Sacroiliac Joint Steroid Injection ? Location: ? Right SI Joint? Pre-procedure Diagnosis: Sacroiliitis, not elsewhere classified - M46.1 ? Post-procedure Diagnosis:? The same as above ? Sedation:? NONE ? Medication: Depo-Medrol 40 mg, bupivacaine 0.5% 1 mL, Omnipaque 0.25 mL per joint ? Estimated blood loss:? less than 2 cc ? Surgeon:? Lon Jean Baptiste MD ? COMMENT: THIS WILL BE BOTH DIAGNOSTIC AND THERAPEUTIC. Patient has been seen in the past by myself and has had multiple injections without significant relief. He has been seen by Dr. Diego's did not think he is a surgical candidate but there is some question about what the pain generator. Does not seem to be related to his spinal stenosis though this is severe at L1 3?4 he has no claudication symptoms. Saw Dr. Jordan who felt it might be piriformis syndrome but today on my exam he had 3 provocative tests for SI joint and negative for piriformis. Does also have a positive Roly's so we will proceed with SI joint injection today.. ? Procedure Detail:? The procedure and potential risks were explained to the patient and informed written consent was obtained. The patient was escorted to the procedure room and placed in the prone position. Pillows were utilized for proper positioning and comfort. Time out was performed in the procedure room with nursing staff confirming the patient's identity, procedure to be performed, allergies, and any blood thinning or anti-platelet medications. The patient's lumbosacral area was prepped with ChloraPrep and draped in a sterile fashion. Sterile technique was maintained throughout the procedure.? Sterile gloves were used, a face mask was worn, and new single dose vials of all medications were used with the top being swabbed with alcohol and given time to dry prior to withdrawal of medication. Lidocaine 1% was used to anesthetize the skin. With fluoroscopic guidance, a 22-gauge 3.5 spinal needle was advanced into the posteroinferior aspect of the Right SI joint . Confirmation of intra-articular position of the needle tip was obtained with injection of 0.25cc of Omnipaque 240 contrast which showed appropriate spread within the joint.? Following negative aspiration, 40mg of methylprednisolone mixed with 1 mL of bupivacaine 0.5% was injected.? The needle was gently removed. ?The patient tolerated the procedure well and was discharged home with instructions.? Permanent images saved and recorded. Plan:? Follow up prn. PAIN PRE PROCEDURE 01/06 POST PROCEDURE 07/09 COMMENT: [80] % BETTER AFTER INJECTION. Will reevaluate and proceed with either piriformis injection or facet injection if this is not effective. Coding Conscious Sedation used for procedure: No CPT Codes: SI Joint Inj; incl Fluoro - 93833 ([id number] ~G) Additional Codes: Date of Service (66821) Date of service: 03/15/25 Diagnoses: Sacroiliitis, not elsewhere classified - M46.1
[2025-03-15 10:50] VITALS: PULSE 58; O2SAT 99
[2025-03-15 11:00] VITALS: PULSE 57; O2SAT 100
[2025-03-15] MEDS: Nerve Block Tray 1 EACH MC (11:04)
[2025-03-15] MEDS: methylPREDNISolone ACETATE 40 MG/ML VIAL IJ (11:04)
[2025-03-15] MEDS: Bupivacaine 0.5% Pres-Free 10 ML VIAL IJ (11:05)
[2025-03-15] MEDS: Omnipaque 240 MG/ML 50 ML BTL IJ (11:05)
== END 2025-03-15 09:58 | disposition home or self-care (01) ==
LOC: PC 09:57
PROVIDERS: PCP Family Medicine; Visit Provider Anesthesiology Pain Medicine
DX: M54.50 Low back pain, unspecified (principal); M46.1 Sacroiliitis, not elsewhere classified
CPT/HCPCS: 27096; 72200; J0665; J1010; Q9967

== ENCOUNTER → 2025-05-16 10:31 | Outpatient (BNVA) | payer MEDICARE, SELFPAY | PROVIDERS: PCP Family Medicine; Visit Provider Nurse Practitioner Adult Health | DX: G31.84 Mild cognitive impairment of uncertain or unknown etiology (principal) | CPT/HCPCS: 99215 ==

== ENCOUNTER 2025-05-16 14:52 | Outpatient (REF) | payer MEDICARE, SELFPAY ==
[2025-05-16 21:13] LABS: HCT 40.9 % (40.0-50.0); HGB 13.5 g/dL (13.5-17.5); MCH 31.0 pg (27.0-33.0); MCHC 33.0 % (32.0-36.0); MCV 94 fL (80-95); MPV 10.6 fL (8.0-11.0); Platelet Count 263 10^3/uL (130-400); RBC 4.36 10^6/uL (4.36-5.78); RDW 12.8 % (11.8-14.1); RDW-SD 43.9 fL; WBC 6.61 10^3/uL (4.4-10.8)
[2025-05-16 21:32] LABS: ALT 15 U/L (10-49); AST 21 U/L (<34); Albumin 4.2 g/dL (3.4-5.0); Alkaline Phosphatase 96 U/L (46-116); Anion Gap 8.3 mmol/L (3-11); BUN 20 mg/dL (9-23); Bilirubin, Total 0.60 mg/dL (0.2-1.2); CO2 27.7 mmol/L (20.0-31.0); Calcium 9.4 mg/dL (8.3-10.6); Chloride 107 mmol/L (98-107); Glucose 80 mg/dL (74-106); Potassium 4.4 mmol/L (3.5-5.1); Sodium 143 mmol/L (136-145); Total Protein 6.8 g/dL (5.7-8.2)
== END 2025-05-16 14:53 | disposition home or self-care (01) ==
LOC: NCHCN 14:52
PROVIDERS: PCP Family Medicine; Visit Provider Family Medicine
DX: I10 Essential (primary) hypertension (principal); N18.31 Chronic kidney disease, stage 3a
CPT/HCPCS: 80053; 85027